=== PATIENT | male | born 1950 | race Caucasian/White ===

== ENCOUNTER 2023-08-30 08:50 | Outpatient (OUT) | payer OTHER, SELFPAY ==
[2023-08-30 09:31] LABS: Estimated Average Glucose 126 mg/dL
[2023-08-30 09:41] LABS: Creatinine Urine Random 63.67 mg/dL (20.00-300.00); Microalbum Creatinine Ratio Ur 20.4 mg/g (0.0-29.9); Microalbumin Urine Random <1.3 mg/dL (<=30.0)
[2023-08-30 12:01] LABS: Alanine Aminotransferase 31 U/L (16-63); Albumin Globulin Ratio 1.2; Albumin Level 3.8 g/dL (3.4-5.0); Alkaline Phosphatase 60 U/L (46-116); Anion Gap 14.5; Aspartate Amino Transferase 19 U/L (15-37); BUN Creatinine Ratio 15.5; Bilirubin Total 0.5 mg/dL (0.2-1.0); Calcium 8.8 mg/dL (8.5-10.1); Carbon Dioxide 26.7 mmol/L (21.0-32.0); Chloride 102 mmol/L (98-107); Estimated GFR (African America >60 (>=60); Estimated GFR (Non-African Ame >60 (>=60); Globulin 3.3 g/dL; Glucose 115 mg/dL (74-106); Potassium 4.2 mmol/L (3.5-5.1); Sodium 139 mmol/L (136-145); Total Protein 7.1 g/dL (6.4-8.2)
== END 2023-08-30 08:51 | disposition home or self-care (01) ==
LOC: LAB 08:52
PROVIDERS: PCP Family Medicine; Visit Provider Family Medicine
DX: M25.532 Pain in left wrist (principal); E11.65 Type 2 diabetes mellitus with hyperglycemia; I10 Essential (primary) hypertension
CPT/HCPCS: 36415; 80053; 82043; 82570; 83036

== ENCOUNTER 2023-12-26 09:04 | Outpatient (OUT) | payer OTHER, SELFPAY ==
--- OUTSIDE RECORDS SUMMARY | 2023-12-26 09:28 | XMS_ITS | CCD ---
Author Organization [facility] Care Team Providers Care Manager New Product Name Role Phone DR IOANA CHRISTINA Attending Unavailable JUSTA GONZALEZ Consulting Unavailable SANFORD, DR TRIPLETT Admitting Unavailable DANILO, DR LUIS ALBERTO Espinoza Primary Care Unavailable ADELAIDA, CHILO Consulting Unavailable DANILO, DR LUIS ALBERTO Espinoza Attending Unavailable TRAVIS, DR CHILO Almanzar Consulting Unavailable DANILO, DR LUIS ALBERTO Espinoza Primary Care Unavailable DANILO, DR LUIS ALBERTO Espinoza Admitting Unavailable DANILO, DR LUIS ALBERTO Espinoza Consulting Unavailable DANILO, DR LUIS ALBERTO Espinoza Attending Unavailable DANILO, DR LUIS ALBERTO Espinoza Consulting Unavailable DANILO, DR LUIS ALBERTO Espinoza Admitting Unavailable Tim Adams Jr. Primary Care Provider Unava ilable Lam Andrew (Hist) Unavailable [phone] Luis Alberto Carrasco Unavailable Unavailable Unavailable Lam Andrew DO Unavailable [phone] MD Luis Alberto Carrasco Primary Care Provider [phone] MD Luis Alberto Carrasco Attending Provider [phone] DO Papa Washburn Attending Provider MD Luis Alberto Carrasco Primary Care Provider MD Luis Alberto Carrasco Attending Provider [phone] Lam Andrew Unavailable Ras Mejias Unavailable [phone] Bryan Jeffries [facility] Primary Care Provider Unava ilable Lam Andrew DO Unavailable [phone] Luis Alberto Carrasco Unavailable Amber MACK, Dr. Joshua Alcantar Referring Unavailable Amber MACK, Dr. Joshua Alcantar Attending Unavailable Dr. Luis Alberto Carrasco Primary Care Unav Luis Alberto Roque MD Primary Care Provider MD Luis Alberto Carrasco Primary Care Provider [phone] MD Luis Alberto Carrasco Attending Provider [phone] Luis Alberto Carrasco Attending Unavailable Luis Alberto Carrasco Admitting Unavailable Luis Alberto Carrasco Primary Care Unavailable Luis Alberto Carrasco MD Primary Care Provider JOSHUA CLARK Attending Unavailable LUIS ALBERTO CARRASCO Primary Care Unavailable PETER POE Attending Unavailable JR. CARLOS, SIMONE Torre Attending Unavaila PETER Ruiz Attending Unavailable JR. CARLOS, SIMONE Torre Attending Unavaila PETER Ruiz Attending Unavailable MARYBETH MASON Attending Unavailable MARYBETH MASON Attending Unavailable JR. CARLOS, SIMONE Torre Attending Unavaila benny SANTOYO JR., SIMONE Torre Referring Unavaila benny SANTOYO JR., SIMONE Torre Attending Unavaila benny Allergies Allergy Classification Reported Allergen(s) Allergy Type Date of Onset Reaction(s) Facility (16 sources) fentaNYL; Translations: [Duragesic-100 PT72] Drug Allergy 9 Rash, Itching [facility] (7 sources) Hmg-Coa Reductase Inhibitors (Statins); Translations: [Statins] [facility] drug (finding[facility]: (20 sources) Morphine; Translations: [morphine] Drug Allergy 5 Itching [facility] (10 sources) ranolazine; Translations: [Ranexa] Drug Allergy [address] [facility] 250 DO Work Phone: (7 sources) fentaNYL; Translations: [FENTANYL] Drug Allergy 0 Itching, Itching, Comment:Freetex t Needs Updated. [facility] (13 sources) Duragesic-75 Drug allergy 4 Unknown, [facility] (6 sources) atorvastatin Drug Allergy 6 Unknown, [facility] (6 sources) venlafaxine Drug Allergy 4 Comment:tired, no appetite [facility] (2 sources) Duragesic-100 Drug allergy 5 Comment:Freetex t Needs Updated. [employer] Other (5 sources) ranolazine; Translations: [RANOLAZINE] Drug Allergy 3 [facility] (2 sources) HMG-CoA reductase inhibitor; Translations: [[id number] REDUCTASE INHIBITORS] Drug Allergy 3 [facility] Work Phone: (2 sources) vilanterol Drug Allergy 4 [facility] Medications Current Medications Medication Drug Class(es) Dates Sig (Normalized) Sig (Original) [id number] 200 actuat albuterol 0.09 mg/actuat metered dose inhaler (20 sources) beta2-Adrenergic Agonist Start: 04-16-2018 take 2 puff(s) by inhalation every six hours as needed Proventil HFA 108 (90 Base) MCG/ACT 2 puffs as needed Inhalation every 6 hrs for 90 days Apr, Active Start: 04-16-2018 Start: 11-14-2017 take 2.5 mg by inhal ation every four hours Albuterol Sulfate Active 2.5 MG INHALATION Q4H November 14, 2017 12:00am Start: 11-14-2017 take 1 puff(s) by in halation every four to six hours Albuterol Sulfate (Proair Hfa) 90 mcg/actuation Hfa Aerosol Inhaler Active 2 PUFF INHALATION EVERY 4-6 HOURS November 14, 2017 12:00am take 2.5 mg by inhal ation every four hours as needed albuterol 2.5 mg /3 mL (0.083 %) nebulizer solution Take 3 mL (2.5 mg) by nebulization every 4 hours if needed. Active Albuterol Sulfat e (2.5 MG/3ML) 0.083% 1 unit dose Inhalation four times a day DX J45.20 asthma, mild intermittent for 30 days Active Albuterol Sulfat e (2.5 MG/3ML) 0.083% 1 unit dose Inhalation four times a day DX J45.20 asthma, mild intermittent for 30 days Active Albuterol Sulfat e (2.5 MG/3ML) 0.083% Inhalation Nebulization Solution USE 1 UNIT DOSE EVERY 4-6 HOURS NEEDED FOR WHEEZING . Quantity: 0 Refills: 0 Ordered: 01-Sep-2021 DO Active Comment on above: Albuterol Sulfate Ac tive 2.5 MG Inhalation Q4H November 14, 2017 10:03am aspirin 81 mg delayed release oral tablet (20 sources) Platelet Aggregation Inhibitor, Nonsteroidal Anti-inflammatory Drug Start: 10-28-2019 take 81 mg by mouth once daily Aspirin Active 81 MG PO Daily October 28, 2019 12:00am Start: 10-27-2017 End: 10-28-2019 take 325 mg by mouth once daily Aspirin Discontinued 325 MG PO Daily October 27, 2017 12:00am October 28, 2019 10:15am Comment on above: Take 81 mg by mouth. atorvastatin 40 mg oral tablet (20 sources) HMG-CoA Reductase Inhibitor Start: 10-28-19 End: 09-24-19 take 40 mg by mouth once daily in the evening Atorvastatin Active 40 MG PO Every evening October 28, 2019 12:00am Comment on above: Atorvastatin Active 40 MG Oral Every evening October 28, 2019 9:10am azithromycin 250 mg oral tablet (11 sources) Macrolide Antimicrobial Start: 08-23-19 Azithromycin 250 MG as directed Orally 2 tabs po today, then 1 tab daily x 4 more days for 5 Aug, Active Start: 10-27-2017 End: 11-14-2017 take 1 tablet by mouth once daily Azithromycin (Zithromax) 250 mg tablet Discontinued 250 MG PO daily 4 October 27, 2017 12:00am November 14, 2017 11:21am First dose given in ED cefdinir 300 mg oral capsule (1 source) Cephalosporin Antibacterial Start: 06-05-2023 Cefdinir 300 MG as directed Orally bid for 7 days May, Active clopidogrel 75 mg oral tablet (20 sources) [id number] Platelet Inhibitor Start: 10-27-2017 End: 09-23-2024 take 75 mg by mouth once daily Clopidogrel Active 75 MG PO Daily October 28, 2019 12:00am Comment on above: Take 75 mg by mouth. diazePAM 2 mg oral tablet (20 sources) Benzodiazepine Start: 10-28-2019 take 2 mg by mouth twice daily Diazepam Active 2 MG PO Twice daily 10 October 28, 2019 12:00am Start: 10-27-2017 End: 10-25-2019 Diazepam Discontinued 5 MG P O 2-3 TIMES PER DAY October 27, 2017 12:00am October 25, 2019 12:28pm diazePAM (Valium ) 5 MG tablet 2 mg 1 (one) time each day at the same time. 0 Active take 1 tablet by janey th every twelve hours diazePAM 5 MG 1 tablet as needed Orally Twice a day Active take 1 tablet by janey th every six hours as needed diazePAM (VALIUM) 5 mg tablet Take 5 mg by mouth every 6 hours as needed. 0 Active Comment on above: Take 5 mg by mouth e very 6 hours as needed. docusate sodium 100 mg oral capsule (20 sources) Start: 06-04-2018 take 1 capsule by mouth once daily Docusate Sodium (Stool Softener) 100 mg Capsule Active 100 MG PO Daily June 04, 2018 1:00am Start: 11-14-2017 End: 05-29-2018 take 1 capsule by mouth twice daily Docusate Sodium (Colace) 100 mg Capsule Discontinued 100 MG PO Twice daily November 14, 2017 12:00am May 29, 2018 10:34am Start: 11-14-2017 End: 11-14-2017 Docusate Sodium (Colace) 100 mg Capsule Discontinued November 14, 2017 12:00am November 14, 2017 11:40am take 1 tablet by janey th once daily as needed Stool Softener 100 MG Oral Tablet TAKE 1 TABLET Daily prn Quantity: 0 Refills: 0 Ordered: 18-Sep-2022 DO Active donepezil hydrochloride 5 mg oral tablet (9 sources) Start: 08-30-2021 End: 09-24-2023 take 1 tablet by mouth once daily at bedtime donepezil (Aricept) 5 mg tablet Take 1 tablet (5 mg) by mouth once daily at bedtime. 08/30/2021 09/24/2023 Discontinued (Therapy completed) hydroCHLOROthiazide 12.5 mg / lisinopril 10 mg oral tablet (20 sources) Thiazide Diuretic, Angiotensin Converting Enzyme Inhibitor Start: 12-15-2020 take 10-12.5 mg by mouth once lisinopril-hydroC HLOROthiazide (PRINZIDE,ZESTORE TIC) 10-12.5 mg per tablet Take 1 tablet by mouth once daily. 0 12/15/2020 Active Start: 10-27-2017 End: 09-23-2024 take 1 tablet by mouth once daily Lisinopril-Hydrochlorothiazide Active 1 TAB PO Daily October 27, 2017 12:00am lisinopril-hydro CHLOROthiazide 10-12.5 MG tablet lisinopril 10 mg-hydrochlorothiazide 12.5 mg tablet 0 Active Comment on above: Take 1 tablet by janey th once daily. 24 hr isosorbide mononitrate 120 mg extended release oral tablet (20 sources) Nitrate Vasodilator Start: 1 End: 5 take 1 tablet by mouth once daily isosorbide mononitrate ER (Imdur) 120 mg 24 hr tablet Indications: ASCVD (arteriosclerotic cardiovascular disease) , Essential hypertension Take 1 tablet (120 mg) by mouth once daily. 90 tablet 3 09/24/2023 09/23/2024 Active Start: 10-27-2017 take 60 mg by mouth once daily Isosorbide Mononitrate Active 60 MG PO Daily October 27, 2017 12:00am Comment on above: Take 120 mg by mouth once daily. meclizine hydrochloride 12.5 mg oral tablet (4 sources) Antiemetic Start: 4 Meclizine Active 12.5 MG PO 2-3 TIMES PER DAY July 15, 2023 12:00am 24 hr metoprolol succinate 25 mg extended release oral tablet (20 sources) beta-Adrenergic Miguel A Start: 3 take 1 tablet by mouth every twenty-four hours in the morning metoprolol succinate XL (Toprol-XL) 25 MG 24 hr tablet Take 25 mg by mouth in the morning. 0 09/18/2022 Active Start: 10-28-2019 take 1 tablet by janey th every twenty-four hours metoprolol succinate ER (TOPROL XL) 25 mg 24 hr tablet Metoprolol Succinate Active 25 MG Oral Daily October 28, 2019 9:41am 0 10/28/2019 Active Start: 10-28-2019 End: 09-23-2024 take 1 tablet by mouth once daily Metoprolol Succinate (Toprol Xl) 25 mg tablet extended release 24 hr Active 25 MG PO Daily October 28, 2019 12:00am Comment on above: Metoprolol Succinate Active 25 MG Oral Daily October 28, 2019 9:41am omeprazole 20 mg delayed release oral capsule (20 sources) Proton Pump Inhibitor Start: 11-15-19 End: 07-11-19 take 20 mg by mouth once daily Omeprazole Active 20 MG PO Daily July 11, 2023 2:53pm Comment on above: Omeprazole Active 20 MG Oral Daily November 14, 2017 10:03am 60 actuat tiotropium 0.0025 mg/actuat inhalation spray (20 sources) Anticholinergic Start: 10-01-19 take 1 puff(s) by inhalation once daily Tiotropium [place] (Spiriva Respimat) 2.5 mcg/actuation mist Active 2 PUFF INHALATION Daily October 01, 2023 12:00am Start: 09-07-2022 take 2 puff(s) by in halation once daily Spiriva Respimat 2.5 MCG/ACT inhaler USE 2 PUFFS DAILY 0 09/07/2022 Active Start: 03-21-2021 take 2 puff(s) by mo ut once daily Spiriva Respimat 2.5 MCG/ACT Inhalation Aerosol Solution INHALE 2 PUFFS BY MOUTH DAILY Quantity: 4 Refills: 0 Ordered: 21-Mar-2021 DO Start : 21-Mar-2021 Active Start: 03-21-2021 take 2 puff(s) by in halation once daily SPIRIVA RESPIMAT 2.5 mcg/actuation inhaler Inhale 2 Puffs as instructed once daily. 0 03/21/2021 Active Start: 10-25-2019 End: 09-23-2023 take 2.5 ug by inhalation once daily Tiotropium [place] (Spiriva Respimat) 2.5 mcg/actuation mist Discontinued 2.5 MCG INHALATION Daily October 25, 2019 12:00am September 23, 2023 9:31am Start: 10-25-2019 End: 10-25-2019 Tiotropium [place] (Spiriva Respimat) 2.5 mcg/actuation mist Discontinued INHALATION October 25, 2019 12:00am October 25, 2019 7:34am Start: 02-14-2018 take 2 puff(s) by in halation once daily Spiriva Respimat 2.5 MCG/ACT 2 puffs Inhalation Once a day for 30 days Feb, Active Start: 02-14-2018 Start: 10-27-2017 End: 05-29-2018 take 1 capsule by inhalation once daily Tiotropium [place] (Spiriva With Handihaler) 18 mcg Capsule, W/Inhalation Device Discontinued 1 CAP INHALATION Daily October 27, 2017 12:00am May 29, 2018 10:32am take 2 puff(s) by in halation once daily Spiriva Respimat 2.5 mcg/actuation inhaler 2 puffs once daily. Active Comment on above: Inhale 2 Puffs as in structed once daily. traMADol hydrochloride 50 mg oral tablet (14 sources) Opioid Agonist Start: 02-21-20 21 take 1 tablet by mouth every six hours as needed for pain traMADol HCl 50 MG 1 tablet as needed for pain Orally every 6 hrs for 7 days Feb, Active Comment on above: Take 50 mg by mouth every 6 hours as needed for pain. 24 hr venlafaxine 75 mg extended release oral capsule (17 sources) Serotonin and Norepinephrine Reuptake Inhibitor Start: 11-16-19 22 take 1 capsule by mouth every twenty-four hours in the morning venlafaxine XR (Effexor XR) 75 MG 24 hr capsule Take 150 mg by mouth in the morning. 0 11/15/2021 Active Start: 03-06-2021 End: 09-24-2023 take 1 capsule by mouth once daily venlafaxine XR (Effexor-XR) 150 mg 24 hr capsule Take 1 capsule (150 mg) by mouth once daily. 03/06/2021 09/24/2023 Discontinued (Therapy completed) Start: 03-06-2021 take 1 capsule by [facility] once daily venlafaxine ER (EFFEXOR XR) 37.5 mg 24 hr capsule Take 1 capsule by mouth once daily. Take 1 capsule daily for 1 week then increase to 2 capsules daily for 1 week then increase to 150 mg capsules and continue on that dose 21 capsule 0 03/06/2021 Active Comment on above: Take 1 capsule by mo [facility] once daily. Take 1 capsule daily for 1 week then increase to 2 capsules daily for 1 week then increase to 150 mg capsules and continue on that dose Take 1 capsule by mo [facility] once daily. Completed/Discontinued Medications Medication Drug Class(es) Dates Sig (Normalized) Sig (Original) atenolol 25 mg oral tablet (10 sources) beta-Adrenergic Miguel A Start: 10-27-2017 End: 06-04-2018 take 25 mg by mouth once daily Atenolol Discontinued 25 MG PO Daily October 27, 2017 12:00am June 04, 2018 11:46am Comment on above: Take 25 mg by mouth. benoxinate hydrochloride 4 mg/ml / fluorescein sodium 2.5 mg/ml ophthalmic solution (2 sources) Diagnostic Dye Start: 12-27-2021 End: 12-27-2021 fluorescein-benoxi jerry 0.25-0.4 % 1 Drop (FLURESS) Start: 11-13-2021 End: 11-13-2021 fluorescein-benoxinate 0.25- 0.4 % 1 Drop (FLURESS) benzonatate 200 mg oral capsule (10 sources) Non-narcotic Antitussive Start: 04-09-2020 End: 08-26-2023 take 200 mg by mouth three times daily Benzonatate Discontinued 200 MG PO Three times daily April 09, 2020 1:00am August 26, 2023 10:03am Comment on above: Benzonatate Active 2 00 MG Oral Three times daily April 09, 2020 3:41pm bimatoprost 0.1 mg/ml ophthalmic solution (20 sources) Prostaglandin Analog Start: 11-14-2017 End: 11-13-2021 take 1 drop(s) into the eye(s) once daily in the evening bimatoprost (LUMIGAN) 0.01 % drop ophthalmic drops Bimatoprost Active 1 DROPS Ophthalmic Every evening November 14, 2017 10:03am 0 11/14/2017 11/13/2021 Discontinued (Changing Therapy/Dosage Form) Start: 11-14-2017 take 0.01 drop(s) in to the eye(s) once daily in the evening Bimatoprost (Lumigan) 0.01 % Drops Active 1 DROPS OPHTHALMIC Every evening November 14, 2017 12:00am take 1 drop(s) into the eye(s) once daily at bedtime bimatoprost (Lumigan) 0.03 % ophthalmic solution Administer 1 drop into affected eye(s) once daily at bedtime. Active bimatoprost (Lum igan) 0.03 % ophthalmic solution 1 (one) time each day at the same time. 0 Active take 1 drop(s) into the eye(s) once daily in the evening Lumigan 0.01 % 1 drop into affected eye in the evening Ophthalmic Once a day Active Comment on above: Bimatoprost Active 1 DROPS Ophthalmic Every evening November 14, 2017 10:03am Fluticasone Propion-Salmeterol (12 sources) Corticosteroid, beta2-Adrenergic Agonist Start: 11-14-2017 End: 05-29-2018 Fluticasone Propion-Salmeterol (Advair Diskus) 250-50 mcg/dose Blister With Device Discontinued 1 INH INHALATION Q12H November 14, 2017 11:03am May 29, 2018 10:29am Start: 11-14-2017 End: 05-29-2018 Fluticasone Propion-Salmeter ol (Advair Diskus) 250-50 mcg/dose Blister With Device Discontinued 1 INH INHALATION Q12H November 14, 2017 12:00am May 29, 2018 10:29am Start: 10-27-2017 End: 05-29-2018 Fluticasone Propion-Salmeter ol (Advair Diskus) 250-50 mcg/dose Blister With Device Discontinued 1 INH INHALATION Daily October 27, 2017 10:26pm May 29, 2018 10:28am Start: 10-27-2017 End: 05-29-2018 Fluticasone Propion-Salmeter ol (Advair Diskus) 250-50 mcg/dose Blister With Device Discontinued 1 INH INHALATION Daily October 27, 2017 12:00am May 29, 2018 10:28am Fluticasone Furoate-Vilanterol (4 sources) Corticosteroid, beta2-Adrenergic Agonist Start: 09-23-2023 End: 10-01-2023 take 1 puff(s) by inhalation once daily Fluticasone Furoate-Vilanterol (Breo Ellipta) 200-25 mcg/dose blister with device Discontinued 1 INH INHALATION Daily September 23, 2023 12:00am October 01, 2023 9:16am [employer] puff Inhalation Once a day; Note: Source Status: Taking; Refills: 3; Provider: Magalie Espinoza Start: 02-19-2023 take 1 puff(s) by in halation once daily Breo Ellipta 200-25 MCG/ACT 1 puff Inhalation Once a day for 90 days Feb, Active furosemide 40 mg oral tablet (12 sources) Loop Diuretic Start: 10-27-2017 End: 10-25-2019 take 1 tablet by mouth once daily Furosemide (Lasix) 40 mg tablet Discontinued 40 MG PO Daily June 04, 2018 1:00am October 25, 2019 8:31am gabapentin 300 mg oral capsule (6 sources) Anti-epileptic Agent Start: 10-27-2017 End: 10-25-2019 take 1 capsule by mouth three times daily Gabapentin (Neurontin) 300 mg Capsule Discontinued 300 MG PO Three times daily October 27, 2017 12:00am October 25, 2019 8:31am latanoprost 0.05 mg/ml ophthalmic solution (2 sources) Prostaglandin Analog Start: 11-13-2021 take 1 drop(s) into the eye(s) once daily at bedtime latanoprost (XALATAN) 0.005 % ophthalmic solution Use 1 Drop in the right eye daily at bedtime. 2.5 mL 11 11/13/2021 Active Comment on above: Use 1 Drop in the ri ght eye daily at bedtime. nitroglycerin 0.4 mg sublingual tablet (20 sources) Nitrate Vasodilator Start: 10-27-2017 End: 11-14-2017 Nitroglycerin Discontinued November 14, 2017 12:00am November 14, 2017 11:39am nitroglycerin (N itrostat) 0.4 MG SL tablet 1 tablet under tongue every 5 minutes for chest pain orally 0 Active Comment on above: Dissolve 0.4 mg unde r the tongue at bedtime as needed. Tiotropium-Olodaterol (6 sources) Anticholinergic, beta2-Adrenergic Agonist Start: 05-29-2018 End: 10-25-2019 Tiotropium-Olodaterol (Stiolto Respimat) 2.5-2.5 mcg/actuation Mist Discontinued 2 PUFF INHALATION Daily May 29, 2018 10:31am October 25, 2019 7:34am Start: 05-29-2018 End: 10-25-2019 Tiotropium-Olodaterol (Stiol to Respimat) 2.5-2.5 mcg/actuation Mist Discontinued 2 PUFF INHALATION Daily May 29, 2018 1:00am October 25, 2019 7:34am ondansetron 4 mg disintegrating oral tablet (4 sources) Serotonin-3 Receptor Antagonist Start: 07-15-2023 End: 08-26-2023 take 4 mg by mouth every eight hours Ondansetron Discontinued 4 MG PO Q8H July 15, 2023 12:00am August 26, 2023 10:04am oxyCODONE hydrochloride 15 mg oral tablet (12 sources) Opioid Agonist Start: 05-29-2018 End: 10-25-2019 take 15 mg by mouth three times daily Oxycodone Discontinued 15 MG PO Three times daily May 29, 2018 1:00am October 25, 2019 8:32am Start: 11-14-2017 End: 05-29-2018 take 10 mg by mouth every four to six hours Oxycodone Discontinued 10 MG PO EVERY 4-6 HOURS November 14, 2017 12:00am May 29, 2018 10:34am potassium chloride 10 meq extended release oral capsule (6 sources) Start: 10-27-2017 End: 10-25-2019 take 10 mEq by mouth once daily Potassium Chloride Discontinued 10 MEQ PO Daily October 27, 2017 12:00am October 25, 2019 8:32am predniSONE 50 mg oral tablet (18 sources) Start: 04-09-2020 End: 10-01-2023 take 50 mg by mouth once daily Prednisone Discontinued 50 MG PO Daily 5 April 09, 2020 1:00am October 01, 2023 9:16am Start: 11-14-2017 End: 05-29-2018 take 10 mg by mouth once daily Prednisone Discontinued 10 MG PO Daily November 14, 2017 12:00am May 29, 2018 10:31am Start: 10-27-2017 End: 11-14-2017 take 40 mg by mouth once daily in the morning Prednisone Discontinued 40 MG PO Every morning 10 October 27, 2017 12:00am November 14, 2017 11:11am administer with food or milk 12 hr ranolazine 500 mg extended release oral tablet (6 sources) Anti-anginal Start: 06-04-2018 End: 10-25-2019 take 1 tablet by mouth twice daily Ranolazine (Ranexa) 500 mg tablet extended release 12 hr Discontinued 500 MG PO Twice daily 60 June 04, 2018 1:00am October 25, 2019 8:33am simvastatin 10 mg oral tablet (6 sources) HMG-CoA Reductase Inhibitor Start: 11-14-2017 End: 10-25-2019 take 10 mg by mouth once daily in the evening Simvastatin Discontinued 10 MG PO Every evening November 14, 2017 12:00am October 25, 2019 8:31am spironolactone 25 mg oral tablet (20 sources) Aldosterone Antagonist Start: 10-25-2019 End: 09-23-2024 take 25 mg by mouth once daily Spironolactone Discontinued 25 MG PO Daily October 25, 2019 12:00am October 01, 2023 9:16am Comment on above: Spironolactone Activ e 25 MG Oral Daily October 25, 2019 6:35am terazosin 5 mg oral capsule (6 sources) alpha-Adrenergic Miguel A Start: 11-14-2017 End: 10-25-2019 take 5 mg by mouth once daily Terazosin Discontinued 5 MG PO Daily November 14, 2017 12:00am October 25, 2019 8:33am Problems Active Problems Problem Classification Problem Date Documented Date Episodic/Chronic Acute myocardial infarction (6 sources) Subsequent non-ST segment elevation myocardial infarction; Translations: [Subendocardial infarction, episode of care unspecified] Onset: 04-12-2023 04-12-2023 Chronic Asthma (11 sources) Asthma; Translations: [Unspecified asthma, uncomplicated] 10-25-2019 Chronic Asthma (6 sources) Asthma 04-09-2020 Cataract (1 source) After-cataract of bilateral eyes; Translations: [Other secondary cataract, bilateral] Chronic Chronic obstructive pulmonary disease and bronchiectasis (6 sources) Chronic obstructive lung disease; Translations: [Chronic airway obstruction, not elsewhere classified] Onset: 04-12-2023 04-12-2023 Chronic Chronic obstructive pulmonary disease and bronchiectasis (1 source) Bronchitis, not specified as acute or chronic Episodic Conditions associated with dizziness or vertigo (7 sources) Benign paroxysmal positional vertigo; Translations: [Benign paroxysmal vertigo, unspecified ear] 07-22-2023 Episodic Coronary atherosclerosis and other heart disease (20 sources) Arteriosclerotic vascular disease; Translations: [Cardiovascular disease, unspecified] Onset: 04-12-2023 10-25-2019 Chronic Coronary atherosclerosis and other heart disease (4 sources) Coronary angioplasty status; Translations: [Presence of aortocoronary bypass graft] Onset: 04-12-2023 Episodic Diabetes mellitus with complications (8 sources) Hyperglycemia due to type 2 diabetes mellitus; Translations: [Type 2 diabetes mellitus with hyperglycemia] 08-26-2023 Chronic Disorders of lipid metabolism (16 sources) Hyperlipidemia; Translations: [Other and unspecified hyperlipidemia] Onset: 04-12-2023 10-25-2019 Chronic Disorders usually diagnosed in infancy, childhood, or adolescence (9 sources) Tic disorder; Translations: [Tic disorder, unspecified] Onset: 02-20-2021 Resolved: 02-20-2021 Chronic Essential hypertension (20 sources) Hypertensive disorder; Translations: [Unspecified essential hypertension] Onset: 04-12-2023 10-25-2019 Chronic Glaucoma (3 sources) Suspected bilateral glaucoma; Translations: [Preglaucoma, unspecified, bilateral] Chronic Immunizations and screening for infectious disease (6 sources) Contact with and (suspected) exposure to other viral communicable diseases; Translations: [Patient encounter status] Onset: 04-05-2020 Episodic Other and ill-defined heart disease (6 sources) Diastolic dysfunction; Translations: [Heart disease, unspecified] Onset: 04-12-2023 04-12-2023 Chronic Other circulatory disease (1 source) Other specified symptoms and signs involving the circulatory and respiratory systems; Translations: [OTH SPEC SX SIGNS INVLV CIRC RS] Onset: 11-24-2020 Episodic Other circulatory disease (5 sources) H/O: angina pectoris; Translations: [Personal history of other diseases of circulatory system] Episodic Other ear and sense organ disorders (1 source) Impacted cerumen, right ear Episodic Other hematologic conditions (6 sources) Raised cardiac enzyme or marker; Translations: [Other specified abnormalities of plasma proteins] 10-25-2019 Episodic Other injuries and conditions due to external causes (3 sources) Unspecified foreign body in pharynx causing other injury, initial encounter; Translations: [UNS FB PHAR CAUS OTH INJ INIT ENC] Onset: 11-22-2020 Episodic Other lower respiratory disease (11 sources) Dyspnea; Translations: [Other respiratory abnormalities] 10-27-2019 Episodic Other lower respiratory disease (6 sources) Viral respiratory infection; Translations: [Other specified respiratory disorders] 04-09-2020 Episodic Other lower respiratory disease (10 sources) Dyspnea on exertion; Translations: [Other forms of dyspnea] Episodic Other lower respiratory disease (2 sources) Other forms of dyspnea Onset: 03-21-2021 Resolved: 03-21-2021 Episodic Other nervous system disorders (3 sources) Ulnar nerve entrapment at elbow; Translations: [Lesion of ulnar nerve, unspecified upper limb] Onset: 01-20-2016 10-08-2022 Chronic Other nervous system disorders (3 sources) Carpal tunnel syndrome of left wrist; Translations: [Carpal tunnel syndrome, left upper limb] Onset: 01-20-2016 10-08-2022 Chronic Other nervous system disorders (8 sources) Paresthesia; Translations: [Paresthesia of skin] Episodic Other nervous system disorders (1 source) Postoperative pain ; Translations: [Other acute postprocedural pain] 06-11-2023 Episodic Other non-traumatic joint disorders (1 source) Pain in left knee Episodic Other non-traumatic joint disorders (4 sources) Pain in wrist; Translations: [Pain in left wrist] 08-26-2023 Episodic Other non-traumatic joint disorders (3 sources) Pain in left wrist; Translations: [Pain in joint, forearm] 08-26-2023 Episodic Other nutritional; endocrine; and metabolic disorders (5 sources) Obesity; Translations: [Obesity, unspecified] Chronic Other nutritional; endocrine; and metabolic disorders (8 sources) Body mass index 30+ - obesity; Translations: [Body mass index (BMI) 38.0-38.9, adult] Onset: 09-24-2023 10-25-2019 Chronic Other nutritional; endocrine; and metabolic disorders (2 sources) Body mass index (BMI) 39.0-39.9, adult; Translations: [Body mass index (BMI) 39.0-39.9, adult] Onset: 09-24-2023 Chronic Other upper respiratory infections (2 sources) Acute pharyngitis, unspecified; Translations: [Acute maxillary sinusitis, unspecified] Onset: 11-24-2020 Episodic Residual codes; unclassified (1 source) Localized edema Episodic Screening and history of mental health and substance abuse codes (10 sources) Personal history of nicotine dependence; Translations: [Ex-smoker] Onset: 11-24-2020 09-24-2023 Episodic Comment on above: quit 2008; Past or Other Problems Problem Classification Problem Date Documented Da te Episodic/Chronic Malaise and fatigue (6 sources) Fatigue; Translations: [Other malaise and fatigue] Onset: 04-12-2023 04-12-2023 Episodic Other connective tissue disease (1 source) Cramp and spasm; Translations: [Spasticity R25.2] Onset: 02-20-2021 Resolved: 02-20-2021 Episodic Other connective tissue disease (3 sources) Pain in right arm; Translations: [Pain in right arm] Onset: 12-28-2022 12-28-2022 Episodic Other nervous system disorders (1 source) Paresthesia of skin; Translations: [Paresthesia of upper and lower extremities of both sides R20.2] Onset: 02-20-2021 Resolved: 02-20-2021 Episodic Other nervous system disorders (1 source) Abnormal reflex; Translations: [Hyporeflexia R29.2] Onset: 02-20-2021 Resolved: 02-20-2021 Episodic Other non-traumatic joint disorders (5 sources) Pain in left hip; Translations: [PAIN IN LEFT HIP] Onset: 01-20-2021 Resolved: 02-20-2021 Episodic Spondylosis; intervertebral disc disorders; other back problems (3 sources) Low back pain; Translations: [Low back pain] Onset: 10-11-2016 10-08-2022 Episodic Unclassified (1 source) Onset: 09-24-2023 09-24-2023 Results Test Name Value Interpretation Reference Range Facility MR WRIST LEFT WO IV CONTRAST on 09-25-2023 MR WRIST LEFT WO IV CONTRAST HISTORY: Left wrist pain for a couple months. Some swelling. History of falls. TECHNIQUE: Routine MRI of the wrist, left side; COMPARISON: None RESULT: BONE MARROW: No evidence for recent fracture. No evidence for avascular necrosis. Tiny amount of edema signal involving the lunate and scaphoid near the scapholunate ligament attachments. LIGAMENTS: Fairly diffusely increased signal involving the scapholunate ligament with tearing of the interosseous component and probable sprain or partial tear involving the dorsal component, without complete tear, and probable tearing of the volar component. Lunotriquetral ligament appears grossly intact. TRIANGULAR FIBROCARTILAGE: Probable central perforation. CARTILAGE: Mild scattered degenerative changes throughout the wrist with small osteophytes, especially of the thumb CMC joint. TENDONS: The flexor and extensor tendons are intact. NERVES: The visualized portions of the median and ulnar nerves appear to be within normal limits. JOINT FLUID AND SYNOVIUM: Small radiocarpal joint effusion. Small joint effusion of the distal radioulnar joint. OTHER: Subcutaneous edema. IMPRESSION: Tearing involving the scapholunate ligament as discussed. No evidence for recent fracture. Probable central perforation of the TFCC. ELECTRONICALLY SIGNED BY: Blair Mtz MD Normal Not Available Estimated glomerular filtrat ion rate (GFR) non- Americanon 08-30-2023 GFR/1.73 sq M.predicted among non-blacks MDRD (S/P/Bld) [Vol rate/Area] mL/min/{1.73_m2} >=60 [facility] Globulin Calc (S) [Mass/Vol] on 08-30-2023 Globulin (S) [Mass/Vol] 3.3 g/dL [facility] Glucose mean value [Mass/vol ume] in Blood Estimated from glycated hemoglobinon 08-30-2023 Average glucose Estimated from glycated hemoglobin (Bld) [Mass/Vol] 126 mg/dL [facility] Laboratory - Chemistry and C hemistry - challengeon 08-30-2023 Albumin [Mass/Vol] 3.8 g/dL 3.4-5.0 [facility] ALP [Catalytic activity/Vol] 60 U/L 46-116 [facility] ALT [Catalytic activity/Vol] 31 U/L 16-63 [facility] AST [Catalytic activity/Vol] 19 U/L 15-37 [facility] Bilirubin [Mass/Vol] 0.5 mg/dL 0.2-1.0 [facility] Calcium [Mass/Vol] 8.8 mg/dL 8.5-10.1 [facility] Chloride [Moles/Vol] 102 mmol/L 98-107 [facility] CO2 [Moles/Vol] 26.7 mmol/L 21.0-32.0 [facility] Creatinine [Mass/Vol] 1.16 mg/dL 0.70-1.30 [facility] GFR/1.73 sq M.predicted MDRD (S/P/Bld) [Vol rate/Area] mL/min/{1.73_m2} >=60 [facility] Glucose [Mass/Vol] 115 mg/dL 74-106 [facility] Potassium [Moles/Vol] 4.2 mmol/L 3.5-5.1 [facility] Protein [Mass/Vol] 7.1 g/dL 6.4-8.2 [facility] Sodium [Moles/Vol] 139 mmol/L 136-145 [facility] Urea nitrogen [Mass/Vol] 18.0 mg/dL 7.0-18.0 [facility] Urea nitrogen/Creatinine [Mass ratio] 15.5 mg/mg [facility] Laboratory - Hematology and Cell countson 08-30-2023 HbA1c (Bld) [Mass fraction] 6.0 % 4.5-6.2 [facility] Comment on above: ADA RECOMMENDED LIMI T 4.0 - 6.0ADA THERAPEUTIC TARGET < 7.0ACTION SUGGESTED> 7.0 Microalbumin [Mass/volume] i n Urineon 08-30-2023 Albumin DL <= 20 mg/L (U) [Mass/Vol] mg/dL <=30.0 [facility] No Panel Informationon 08-29 Urine Random Creatinine 63.67 mg/dL 20.00-300.00 [facility] Serum or plasma albumin/glob ulin mass ratioon 08-30-2023 Albumin/Globulin [Mass ratio] 1.2 {ratio} [facility] Serum or plasma anion gap de terminationon 08-30-2023 Anion gap [Moles/Vol] 14.5 mmol/L [facility] Urine microalbumin/creatinin e mass ratioon 08-30-2023 Albumin/Creatinine DL <= 20 mg/L (U) [Mass ratio] 20.4 mg/g 0.0-29.9 [facility] Comment on above: NO MICROALBUMINURIA 0-29 MG/GCLINICAL MICROALBUMINURIA 30-300 MG/GMACROALBUMINURIA >300 MG/G XR wrist LT min 3V*on 2023 XR wrist LT min 3V* [place] [address] XRay Report Signed Patient: Víctor Nichols MR#: [id number] : 1950 Acct:[id number] Age/Sex: 72 / M ADM Date: 08/29/23 Loc: ICXD Room: Type: [facility] Attending Dr: Luis Alberto Carrasco MD Copies to: Luis Alberto Carrasco MD Ordering Provider: Luis Alberto Carrasco MD Date of Service: 08/29/23 XR/XR wrist LT min 3V*: M25.532, E11.65, I10 XR wrist LT min 3V* 08/29/2023 4:00 PM SIGNS AND SYMPTOMS: Lump on ulnar aspect of left wrist PROTOCOL: Frontal, lateral, and oblique radiographs of the left wrist COMPARISON: None FINDINGS: There is narrowing of the radiocarpal joint space. There is slight widening of the scapholunate junction suggesting a scapholunate ligament injury. There is a positive ulnar variance. There is mild chondrocalcinosis of the triangular fibrocartilage. There is no fracture or dislocation. Soft tissue swelling is noted along the ulnar aspect of the wrist. XR/XR wrist LT min 3V* IMPRESSION: The radiocarpal joint degenerative changes are noted. There is widening of the scapholunate junction measuring up to 4 mm suggesting a scapholunate ligament injury. There is also a positive ulnar variance. Chondrocalcinosis is noted in the triangular fibrocartilage. This is suggestive of underlying CPPD. Impression dictated by: Chad Scales M.D.08/29/2023 8:40 PM Dictation Location: [place] [address] Transcribed By: [facility] 08/29/232039 Dictated By: Chad Scales II, MD 08/29/232036 Signed By: 08/29/232039 Normal [facility] CARDIAC STRESS/REST INJE CTIONon 10-31-2022 [facility] CARDIAC STRESS/REST INJECTION Patient Name: VÍCTOR NICHOLS STUDY: MYOCARDIAL PERFUSION STRESS TEST WITH LEXISCAN Performing facility: [facility], [address] [place] [address], [address], [address] Provider: Helen Clark MD, [facility] PCP: Dr. Alize Carrasco Supervising provider: [facility] Clark MD, [facility] INDICATION: ASCVD Hx PTCA Diastolic dysfunction Hx CABG Pre-operative risk assessment for Knee surgery scheduled at [facility] on [facility]. HISTORY: Gender: M; Age: 71 y/o ; Height: 157.48 cm; Weight: 96.1833985 kg. CAD; High Cholesterol; Previous CT; HTN; COPD; Quit smoking 14 years ago. Cardiac catheterization on 2007, 2013, 2017, 2018, 2019. PTCA on 2007. CABG on 2004. COMPARISON: Previous nuclear testing completed [id number] at [facility]. ACCESSION NUMBER(S): [id number]; [id number]; [id number] ORDERING CLINICIAN: JOSHUA CLARK TECHNIQUE: ONE DAY protocol. Stress injection: Date:10-31-22, 33.8 mCi of Myoview IV 20 seconds after rapid injection of Lexiscan. Rest injection: Date: 10-31-22, 11.4 mCi of Myoview IV at rest. The patient had a rapid injection of 0.4 mg of Lexiscan IV over 10 seconds. Imaging was performed by gated tomographic technique. Reason for Lexiscan: Crutches, Knee pain STRESS TEST DATA: Resting heart rate was 62 BPM. Resting blood pressure was 138/82 mmHg. Peak blood pressure was 128/76 mmHg. Peak heart rate was 84 BPM. TEST TERMINATED DUE TO: Protocol completed FINDINGS: STRESS TEST RESULTS: Resting electrocardiogram revealed normal sinus rhythm. There were no significant ischemic ECG changes or dysrhythmias. The patient did not have chest pains/symptoms during procedure. There was a normal recovery phase. IMAGING RESULTS: Image quality was good. Rest and stress tomographic images were reviewed and revealed normal perfusion without evidence of ischemia, myocardial infarction, or left ventricular dilatation with stress. Overall left ventricular systolic function appeared to be normal without regional wall motion abnormalities. Ejection fraction was 61%. TID is 1.18 and is normal. There was no evidence of attenuation artifact. IMPRESSION: Normal Lexiscan Myoview cardiac perfusion stress test. No evidence of ischemia or myocardial infarction by perfusion imaging. Normal left ventricular systolic function, ejection fraction 61%. When compared to a study from 2019, no interval changes were seen. Electronically signed by: SEEMA CLIFFORD MD Normal [facility] No Panel Informationon 10-31 Normal -[facility] [address] DO Work Phone: Creatinine and Glomerular fi ltration rate.predicted panel (S/P/Bld)Ordered By: Luis Alberto Carrasco on 09-20-2021 Creatinine [Mass/Vol] 1.16 mg/dL 0.64-1.27 [facility] Estimated glomerular filtrat ion rate (GFR) non- AmericanOrdered By: Luis Alberto Carrasco on 09-20-2021 GFR/1.73 sq M.predicted among non-blacks MDRD (S/P/Bld) [Vol rate/Area] > 60 mL/Min [facility] No Panel InformationOrdered By: Luis Alberto Carrasco on 09-20-2021 Estimated GFR () > 60 mL/Min [facility] Comment on above: GFR estimated refere nce range: According to KDOQI guidelines, <60 ml/min/1.73m2 is sufficient to diagnose a patient with chronic kidney disease. Pharmacy Creatinine Clearance (Chem N/A [facility] Serum or plasma calcium vadim urement (mass/volume)Ordered By: Luis Alberto Carrasco on 09-20-2021 Calcium [Mass/Vol] 9.2 mg/dL 8.2-10.2 [facility] Serum or plasma chloride sheri surement (moles/volume)Ordered By: Luis Alberto Carrasco on 09-20-2021 Chloride [Moles/Vol] 100 mmol/L 95-114 [facility] Serum or plasma glucose vadim urement (mass/volume)Ordered By: Luis Alberto Carrasco on 09-20-2021 Glucose [Mass/Vol] 112 mg/dL 70-100 [facility] Comment on above: ADA recommended refe rence range Random Glucose Reference Range is dependent on time and content of last meal. Glucose of more than 200 mg/dL in a nonstressed, ambulatory subject supports the diagnosis of Diabetes Mellitus. Serum or plasma potassium me asurement (moles/volume)Ordered By: Luis Alberto Carrasco on 09-20-2021 Potassium [Moles/Vol] 4.3 mmol/L 3.5-5.1 [facility] Serum or plasma sodium measu rement (moles/volume)Ordered By: Luis Alberto Carrasco on 09-20-2021 Sodium [Moles/Vol] 136 mmol/L 136-146 [facility] Serum or plasma total carbon dioxide measurement (moles/volume)Ordered By: Luis Alberto Carrasco on 09-20-2021 CO2 [Moles/Vol] 27.3 mmol/L 22.0-30.0 [facility] Serum or plasma urea nitroge n measurement (mass/volume)Ordered By: Luis Alberto Carrasco on 09-20-2021 Urea nitrogen [Mass/Vol] 16 mg/dL 9-23 [facility] Laboratory - Chemistry and C hemistry - challengeOrdered By: Ras Washburn on 09-04-2021 Cobalamin (Vitamin B12) [Mass/Vol] 315 pg/mL 180-914 [facility] TSH DL <= 0.005 mIU/L QnOrde red By: Ras Washburn on 09-04-2021 TSH Qn 1.49 m[IU]/L 0.45-5.33 [facility] Office Visit (Cardiology)on 09-01-2021 Follow-up visit Diagnoses/Problems Assessed ASCVD (arteriosclerotic cardiovascular disease) (429.2,440.9) (I25.10) History of PTCA (V45.82) (Z98.61) Hyperlipidemia (272.4) (E78.5) Hypertension (401.9) (I10) S/P CABG (coronary artery bypass graft) (V45.81) (Z95.1) [id number] Chronic obstructive pulmonary disease (496) (J44.9) Class 2 obesity with body mass index (BMI) of 37.0 to 37.9 in adult (278.00,V85.37) (E66.9,Z68.37) Former smoker (V15.82) (Z87.891) quit 2009 Orders ASCVD (arteriosclerotic cardiovascular disease) Renew: Atorvastatin Calcium 40 MG Oral Tablet; TAKE ONE TABLET BY MOUTH DAILY AT BEDTIME Class 2 obesity with body mass index (BMI) of 37.0 to 37.9 in adult Healthy Weight Tips; Status:Complete; Done: [id number] Hyperlipidemia Renew: Aspirin EC 81 MG Oral Tablet Delayed Release; TAKE 1 TABLET Daily SocHx: Former smoker Tobacco Use Screening; Status:Complete; Done: [id number] Patient Instructions By signing my name below, I, Elizabet Hogan LPN, attest that this documentation has been prepared under the direction and in the presence of Dr. Joshua Clark MD. All medical record entries made by the Scribe were at my direction and personally dictated by me. I have reviewed the chart and agree that the record accurately reflects my personal performance of the history, physical exam, discussion and plan. Please bring all medicines, vitamins, and herbal supplements with you when you come to the office. Prescriptions will not be filled unless you are compliant with your follow up appointments or have a follow up appointment scheduled as per instruction of your physician. Refills should be requested at the time of your visit. Patient provided Falls Prevention education sheet. Follow up in 6-9 months Chief Complaint VÍCTOR NICHOLS is being seen for a 4 month follow-up of. History of Present Illness Patient returns in follow-up of problems as noted. He is doing well. I cannot elicit any angina CHF arrhythmia or neurologic symptomatology. Treatment and control of his risk factors including his hypertension and hyperlipidemia is reviewed and felt to be adequate and appropriate. He has none of the symptoms of coronary disease that preceded his original diagnosis and subsequent PTCA and/or bypass surgery because of this we believe he is doing well. We did discuss his COPD from his prior smoking history and it is not lifestyle limiting. He was congratulated on his continued tobacco abstinence. We did advocate a calorie restricted diet with exercise and weight loss. Surgical History Problems History of Appendectomy History of Cardiac catheterization with stent placement History of Colonoscopy [id number] History of Coronary artery bypass graft [id number] History of Percutaneous transluminal coronary angioplasty Past Medical History Problems History of angina pectoris (V12.59) (Z86.79) Current Meds Medication NameInstruction Albuterol Sulfate (2.5 MG/3ML) 0.083% Inhalation Nebulization SolutionUSE 1 UNIT DOSE EVERY 4-6 HOURS NEEDED FOR WHEEZING . Aspirin EC 81 MG Oral Tablet Delayed ReleaseTAKE 1 TABLET Daily Atorvastatin Calcium 40 MG Oral TabletTAKE ONE TABLET BY MOUTH DAILY AT BEDTIME Clopidogrel Bisulfate 75 MG Oral TabletTake one tablet once daily diazePAM 2 MG Oral TabletTAKE ONE TABLET BY MOUTH TWICE A DAY NEEDED Donepezil HCl - 5 MG Oral TabletTAKE ONE TABLET BY MOUTH ONCE DAILY AT BEDTIME Isosorbide Mononitrate ER 120 MG Oral Tablet Extended Release 24 HourTAKE ONE TABLET BY MOUTH DAILY Lisinopril-hydroCHLOR Othiazide 10-12.5 MG Oral TabletTAKE ONE TABLET BY MOUTH ONCE DAILY Lumigan 0.03 % SOLNINSTILL 1 DROP INTO BOTH EYES ONCE DAILY IN THE EVENING. Metoprolol Succinate ER 25 MG Oral Tablet Extended Release 24 HourTAKE 1 TABLET ONCE DAILY. Nitroglycerin 0.4 MG Sublingual Tablet SublingualPLACE 1 TABLET UNDER THE TONGUE EVERY 5 MINUTES FOR UP TO 3 DOSES NEEDED FOR CHEST PAIN.CALL 911 IF PAIN PERSISTS. Omeprazole 20 MG Oral Capsule Delayed ReleaseTAKE ONE CAPSULE BY MOUTH ONCE DAILY Spiriva Respimat 2.5 MCG/ACT Inhalation Aerosol SolutionINHALE 2 PUFFS BY MOUTH DAILY Spironolactone 25 MG Oral TabletTAKE 1 TABLET DAILY. Venlafaxine HCl ER 150 MG Oral Capsule Extended Release 24 HourTAKE 1 CAPSULE BY MOUTH ONCE DAILY. Allergies Medication Statins Hives;; Recorded By: Gisell Maya; 03/21/2021 8:41:13 AM Duragesic-100 PT72 Rash; Recorded By: Gisell Maya; 03/21/2021 8:41:13 AM morphine Itching; Recorded By: Gisell Maya; 03/21/2021 8:41:13 AM Ranexa Nausea; Recorded By: Gisell Maya; 03/21/2021 8:41:13 AM Social History Problems Caffeine use (V49.89) (Z78.9) 1-2 cups of coffee daily Consumes alcohol (V49.89) (Z72.89) occasionally Former smoker (V15.82) (Z87.891) quit 2008 No illicit drug use Review of Systems Constitutional: not feeling tired. Eyes: no eyesight problems. ENT: no hearing loss and no nosebleeds. Cardiovascular: no (more content not included)... Normal [employer] Tobacco Screening.on 022 Adult depression screening assessment No [facility] [employer] DO Work Phone: Fall risk assessment b) One or more fall s in the last year [facility] [employer] 250 DO Work Phone: Tobacco use status [facility] b) No [facility] [employer] DO Work Phone: [facility] VÍCTOR NICHOLS ([id number]) 1950 M Date Time Provider Department 08/02/21 WANG RODRIGUES During your visit today, we recorded the following information about you: Adiel Lu 08/02/2021 2:[address] Reese's is referring patient to Dr. Rodrigues for a Yag and SLT Laser. Spoke to patient, he needs to speak with his daughter for his transportation and he will call back. Informed him days Dr. Rodrigues is in [place]. [facility] Patient Automatic Scre[employer] 08/02/2021 3:12 PM Signed Patient has been scheduled Allergies As of Date: 08/02/2021 Noted Allergy Reaction FENTANYL 05/29/2018 2 - Rash MORPHINE 05/29/2018 9 - Itching Date Reviewed: 03/31/2021 Reviewed by: Ade Webb LPN - Fully Assessed Reason for Visit: Appointment [[id number]] Prescriptions as of 08/02/2021 - SPIRIVA RESPIMAT 2.5 mcg/actuation inhaler Inhale 2 Puffs as instructed once daily. - isosorbide mononitrate ER (IMDUR) 120 mg 24 hr tablet Take 120 mg by mouth once daily. - albuterol (PROVENTIL) 2.5 mg /3 mL (0.083 %) nebulizer solution Albuterol Sulfate Active 2.5 MG Inhalation Q4H November 14, 2017 10:03am - aspirin, enteric coated (ASPIRIN, ENTERIC COATED) 81 mg EC tablet Take 81 mg by mouth. - atenolol (TENORMIN) 25 mg tablet Take 25 mg by mouth. - atorvastatin (LIPITOR) 40 mg tablet Atorvastatin Active 40 MG Oral Every evening October 28, 2019 9:10am - Benzonatate 200 mg capsule Benzonatate Active 200 MG Oral Three times daily April 09, 2020 3:41pm - bimatoprost (LUMIGAN) 0.01 % drop ophthalmic drops Bimatoprost Active 1 DROPS Ophthalmic Every evening November 14, 2017 10:03am - clopidogrel (PLAVIX) 75 mg tablet Take 75 mg by mouth. - omeprazole (PRILOSEC) 20 mg capsule Omeprazole Active 20 MG Oral Daily November 14, 2017 10:03am - lisinopril-hydroCHLOR Othiazide (PRINZIDE,ZESTORETIC) 10-12.5 mg per tablet Take 1 tablet by mouth once daily. - spironolactone (ALDACTONE) 25 mg tablet Spironolactone Active 25 MG Oral Daily October 25, 2019 6:35am - metoprolol succinate ER (TOPROL XL) 25 mg 24 hr tablet Metoprolol Succinate Active 25 MG Oral Daily October 28, 2019 9:41am - nitroglycerin sublingual (NITROQUICK) 0.4 mg SL tablet Dissolve 0.4 mg under the tongue at bedtime as needed. - diazePAM (VALIUM) 5 mg tablet Take 5 mg by mouth every 6 hours as needed. - traMADol (ULTRAM) 50 mg tablet Take 50 mg by mouth every 6 hours as needed for pain. - venlafaxine ER (EFFEXOR XR) 37.5 mg 24 hr capsule Take 1 capsule by mouth once daily. Take 1 capsule daily for 1 week then increase to 2 capsules daily for 1 week then increase to 150 mg capsules and continue on that dose - venlafaxine ER (EFFEXOR XR) 150 mg 24 hr capsule Take 1 capsule by mouth once daily. Problem List As Of Date: 08/02/2021 (None) Encounter Status:Closed by [facility] [facility] PATIENT COVERING MACHINE TENDERSHAQ on 08/02/21 [facility] JANNAOVjohnathon 03-31-2021 CNOV Office Visit (NEADMN ) VÍCTOR NICHOLS ([id number]) 1950 M Date Time Provider Department 03/31/21 10:30 AM JAVIER DE SANTIAGO During your visit today, we recorded the following information about you: Pulse Blood pressure Weight Height 81/minute 154/70 97.1 kg 1.575 m Javier De Santiago MD, PhD 04/10/2021 11:39 PM [facility] Consultation Follow-Up Visit March 31, 2021 Patient is here: 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 He has also started exercise and weightloss program as discussed last time CT head reviewed indicating:RESULT: ? Funeral Sales Manager (topogram) images: No significant findings. ? Post-operative change: None. ? Acute change: No evidence of an acute infarct or other acute parenchymal process. ? Hemorrhage: No evidence of acute intracranial hemorrhage. ECASS hemorrhagic transformation score: Not Applicable ? Mass Lesion / Mass Effect: There is no evidence of an intracranial mass or extraaxial fluid collection. No significant mass effect. ? Chronic change: Scattered patchy foci of low attenuation are present within supratentorial white matter which is a nonspecific finding but likely represents mild microvascular ischemia. ? Parenchyma: There is mild generalized volume loss.? Ventricles: The ventricles are within normal limits of size and configuration for age. ? Paranasal sinuses and skull base: The visualized paranasal sinuses are grossly clear. The skull base and imaged soft tissues are unremarkable. ? ? IMPRESSION: No acute intracranial process. BP 154/70 Pulse 81 Ht 5' 2 (1.58m) Wt 214 lb (97.1kg) BMI 39.13 kg/(m2). Exam: he has much decreased involuntary movements in his neck and arm, is noted to have hand and finger movements that he can stop any any times. No change in his pain exam, power, and gait. Impression: as above with some improvement in his movement Suggest: Discussed his care in detail To continue current measures if therapy with F/U in 3-4 months, or earlier with new symptoms. Javier De Santiago MD, PhD VT: 25 min Referring Provider: SELF [[id number]] Allergies As of Date: 03/31/2021 Noted Allergy Reaction FENTANYL 05/29/2018 2 - Rash MORPHINE 05/29/2018 9 - Itching Date Reviewed: 03/31/2021 Reviewed by: Ade Webb LPN - Fully Assessed Reason for Visit: Established Patient [175] Primary Visit Diagnosis:Primary osteoarthritis of both hips [M16.0] Other Visit Diagnoses:Spondylosis [M47.9] Arthropathy of spinal facet joint [M47.819] Radiculopathy due to lumbar intervertebral disc disorder [M51.16] Prescriptions as of 04/10/2021 - SPIRIVA RESPIMAT 2.5 mcg/actuation inhaler Inhale 2 Puffs as instructed once daily. - isosorbide mononitrate ER (IMDUR) 120 mg 24 hr tablet Take 120 mg by mouth once daily. - albuterol (PROVENTIL) 2.5 mg /3 mL (0.083 %) nebulizer solution Albuterol Sulfate Active 2.5 MG Inhalation Q4H November 14, 2017 10:03am - aspirin, enteric coated (ASPIRIN, ENTERIC COATED) 81 mg EC tablet Take 81 mg by mouth. - atenolol (TENORMIN) 25 mg tablet Take 25 mg by mouth. - atorvastatin (LIPITOR) 40 mg tablet Atorvastatin Active 40 MG Oral Every evening October 28, 2019 9:10am - Benzonatate 200 mg capsule Benzonatate Active 200 MG Oral Three times daily April 09, 2020 3:41pm - bimatoprost (LUMIGAN) 0.01 % drop ophthalmic drops Bimatoprost Active 1 DROPS Ophthalmic Every evening November 14, 2017 10:03am - clopidogrel (PLAVIX) 75 mg tablet Take 75 mg by mouth. - omeprazole (PRILOSEC) 20 mg capsule Omeprazole Active 20 MG Oral Daily November 14, 2017 10:03am - lisinopril-hydroCHLOR Othiazide (PRINZIDE,ZESTORETIC) 10-12.5 mg per tablet Take 1 tablet by mouth once daily. - spironolactone (ALDACTONE) 25 mg tablet Spironolactone Active 25 MG Oral Daily October 25, 2019 6:35am - metoprolol succinate ER (TOPROL XL) 25 mg 24 hr tablet Metoprolol Succinate Active 25 MG Oral Daily October 28, 2019 9:41am - nitroglycerin sublingual (NITROQUICK) 0.4 mg SL tablet Dissolve 0.4 mg under the tongue at bedtime as needed. - diazePAM (VALIUM) 5 mg tablet Take 5 mg by mouth every 6 hours as needed. - traMADol (ULTRAM) 50 mg tablet Take 50 mg by mouth every 6 hours as needed for pain. - venlafaxine ER (EFFEXOR XR) 37.5 mg 24 hr capsule Take 1 capsule by mouth once daily. Take 1 capsule daily for 1 week then increase to 2 capsules daily for 1 week then increase to 150 mg capsules and continue on that dose - wallace (more content not included)... Normal [facility] CT BRAIN WO IVCONon 03-31-[address] BRAIN WO IVCON * * *Final Report* * * DATE OF EXAM: Mar 31 2021 7:46AM [facility] [place] BRAIN [place] IVCON / PROCEDURE REASON: Cerebral infarction, unspecified mechanism (HCC) * * * * Physician Interpretation * * * * EXAMINATION: CT BRAIN WO IVCON CLINICAL HISTORY: Cerebral infarction, unspecified mechanism (HCC) TECHNIQUE: Serial axial images without IV contrast were obtained from the vertex to the foramen magnum. MQ: CTBWO_3 CT Radiation dose: Integrated Dose-Length Product (DLP) for this visit = 716 mGy*cm CT Dose Reduction Employed: No dose reduction techniques were required COMPARISON: None. RESULT: Funeral Sales Manager (topogram) images: No significant findings. Post-operative change: None. Acute change: No evidence of an acute infarct or other acute parenchymal process. Hemorrhage: No evidence of acute intracranial hemorrhage. ECASS hemorrhagic transformation score: Not Applicable Mass Lesion / Mass Effect: There is no evidence of an intracranial mass or extraaxial fluid collection. No significant mass effect. Chronic change: Scattered patchy foci of low attenuation are present within supratentorial white matter which is a nonspecific finding but likely represents mild microvascular ischemia. Parenchyma: There is mild generalized volume loss. Ventricles: The ventricles are within normal limits of size and configuration for age. Paranasal sinuses and skull base: The visualized paranasal sinuses are grossly clear. The skull base and imaged soft tissues are unremarkable. IMPRESSION: No acute intracranial process. Soil Science Teacher: [facility] Transcribe Date/Time: Mar 31 2021 8:11A Dictated by : HENRIQUE OMER, DO This examination was interpreted and the report reviewed and electronically signed by: DANNY JOHNSTON MD on Mar 31 2021 9:26AM EST [id number] Normal [facility] CNOVon 03-06-2021 CNOV Office Visit (NREUS2 ) VÍCTOR NICHOLS ([id number]) 1950 M Date Time Provider Department 03/06/21 10:00 AM RONALD CASTROS2 During your visit today, we recorded the following information about you: Pulse Blood pressure Weight Height 79/minute 108/45 98.9 kg 1.6 m [facility] 03/06/2021 3:00 PM Signed Intake information documented in the prior visit with Dr. Javier De Santiago today. Ronald Castro MD 03/06/2021 3:00 PM Signed [facility] - NEW PATIENT EVALUATION Javier De Santiago [address] [facility] [address] De Santiago: Thank you for refering Mr. Nichols to our clinic today. As you know he is a 70 year old right-handed male who is seen in consultation for evaluation of since . He is seen . Subjective HISTORY OF PRESENT ILLNESS: Initial HPI Patient complains of abnormal movements. Started around 3-4 years or more ago. Onset was gradual and has been getting worse with time. Was a few times days but is now constant. Only goes away when asleep. Gets worse when moving his neck a lot. In addition, the following areas that may be affected by abnormal involuntary movements were evaluated: Daily activities Difficulties with eatin (none) Difficulties in dressin (none) Difficulties with hygiene activities: Yes (slight) Difficulties with handwriting: Yes (mild) Difficulties with doing hobbies and other activities: Yes (moderate) Difficulties turning in bed: Yes (slight) Difficulties getting out of bed, car or chair: Yes (moderate) Tremors/Gait/Balance Shaking or tremors: Yes (mild) Walking and balance problems: Yes (moderate): Leg gives out. Dizziness Number of falls in the Last Month: 3 Gait freezing: Yes (slight) Autonomic/Pain Lightheadeness on standing: Yes (moderate): Urinary problems: Yes (slight) Constipation problems: Yes (slight) Pain and other sensations: Yes (moderate): Speech/Swallowing Speech problems: 0 (none) Drooling: Yes (mild) Chewing and swallowing problems: 0 (none) Sleep/Fatigue Sleep problems: Yes (severe): Daytime sleepiness: Yes (mild) Fatigue: Yes (severe) REM sleep behavior disorder: Restless Legs Syndrome: Impaired sense of smell: Yes: had problems during Covid 19 but improving Mood/Behavior Depression: PQH-9 = 18 usually representing moderately severe (15-19) depression. Anxiety: LEANDRA-7 = 7 usually representing mild (5-9) anxiety. Finally, the following table shows the patient's overall global physical and mental health using the PROMIS scale: PROMIS-10 Office Visit from 03/06/2021 in [facility] Global Physical Health T Score 32.4 Global Mental Health T Score 56 0-10 Standard Pain Scale 2 *PROMIS-10 scoring scale: mean = 50, over 50 is above average, under 50 is below average Review of Systems Constitutional: Negative. HENT: Negative. Eyes: Negative. 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 Cardiovascular: Negative. Gastrointestinal: Positive for abdominal pain. Genitourinary: Positive for difficulty urinating. Hematologic/Lymphatic : Negative. Allergic/Immunologic: Negative. Musculoskeletal: Positive for arthralgias, back pain, myalgias, muscle weakness, neck pain and neck stiffness. Skin: Negative. ALLERGIES Allergen Reactions - Fentanyl Itching - Morphine Itching Current Outpatient Medications Medication Sig - albuterol (PROVENTIL) 2.5 mg /3 mL (0.083 %) nebulizer solution Albuterol Sulfate Active 2.5 MG Inhalation Q4H November 14, 2017 10:03am - aspirin, enteric coated (ASPIRIN, ENTERIC COATED) 81 mg EC tablet Take 81 mg by mouth. - atenolol (TENORMIN) 25 mg tablet Take 25 mg by mouth. - atorvastatin (LIPITOR) 40 mg tablet Atorvastatin Active 40 MG Oral Every evening October 28, 2019 9:10am - Benzonatate 200 mg capsule Benzonatate Active 200 MG Oral Three times daily April 09, 2020 3:41pm - bimatoprost (LUMIGAN) 0.01 % drop ophthalmic drops Bimatoprost Active 1 DROPS Ophthalmic Every evening November 14, 2017 10:03am - clopidogrel (PLAVIX) 75 mg tablet Take 75 mg by mouth. - isosorbide mononitrate ER (IMDUR) 60 mg 24 hr tablet Isosorbide Mononitrate Active 60 MG Oral Daily October 27, 2017 9:26pm - omeprazole (PRILOSEC) 20 mg capsule Omeprazole Active 20 MG Oral Daily November 14, 2017 10:03am - lisinopril-hydroCHLOR Othiazide (PRINZIDE,ZESTORETIC) 10-12.5 mg per tablet Take 1 tablet by mouth once daily. - spironolactone (ALDACTONE) 25 mg tablet Spironolactone Active 25 MG Oral Daily October 25, 2019 6:35am - metoprolol succinate ER (TOPROL XL) 25 mg 24 hr tablet Metoprolol Succinate Active 25 MG Oral Daily October 28, 2019 9:41am - nitroglycerin sublingual (NITROQUICK) 0.4 mg SL tablet Dissolve 0.4 mg under the tongue at bedtime as needed. - diazePAM (VALIUM) 5 mg tablet Take 5 mg by mouth every 6 ho (more content not included)... Normal [facility] CNOV Office Visit (NEADMN ) VÍCTOR NICHOLS ([id number]) 1950 M Date Time Provider Department 03/06/21 8:00 AM JAVIER DE SANTIAGO During your visit today, we recorded the following information about you: Pulse Blood pressure Weight Height 79/minute 108/45 98.9 kg 1.6 m Javier De Santiago MD, PhD 03/13/2021 6:35 PM Signed [facility] March 06, 2021 Víctor Nichols Sr. Requesting Physician: LAM ANDREW [address] [place] [address] [place] [address] PCP: Tim Adams Jr. My recommendations will be communicated with the requesting physician via mail or by means of shared electronic medical records. CC: low back pain, neck pain and lower extremity pain HPI: Víctor Nichols Sr. is a 70 year old male who presents with a complaint of constant with variable intensity diffuse low back pain, neck pain and L>>R hip and lower extremity pain, described as achy. According to the patient he has been suffering form several years of neck and LBP but it wasn't until last year as he started noticing pain in his hips nad legs affecting the left more than the R sided. Patient denies any DUKE, change in vision, hearing, speech, swallowing, R sided weakness/numbness, coordination/gait issues and issues with B/B. But when asked he reports using the bathroom 2-3 times per night. He has been also experiencing recurrent twitching movements across the L side of his neck.shoulder and arm/hand. He also notes L sided weakness and some numbness that hs partially attributed to a former stroke. Apparently he underwent S/P CABG in 2004, and awakes with a L sided face/arm and leg weakness nad numbness; was told to have suffered a stroke and was send home without imaging; the left side still feels different. He is also s/p carpal tunnel release. S/P ACDF in 2007 helped pain for a few years Average pain intensity is rated as a 7/10. Multiple activities of daily living are noted to increase pain; these include ambulation, lifting, standing, and during exposure to stress, weather change and cold. Rest and medications would provide some relief. Patient denies the following pertinent symptoms: unintentional weight loss, fevers, chills, or night sweats and ever having cancer. Past Treatments have included: trials of medications. Enrollment in Physical Therapy which did not help. Patient is not currently performing a home exercise program. Injections: he has failed multiple spinal blocks The following MRI images of patients were reviewed: Lumbar MRI from 2013 indicating: L4/5 grade one listhesis Moderate L4/5 epidural lipomatosis Mild L5/S1 disc protrusion ALLERGIES Allergen Reactions - Fentanyl Itching - Morphine Itching Current Outpatient Medications Medication Sig - albuterol (PROVENTIL) 2.5 mg /3 mL (0.083 %) nebulizer solution Albuterol Sulfate Active 2.5 MG Inhalation Q4H November 14, 2017 10:03am - aspirin, enteric coated (ASPIRIN, ENTERIC COATED) 81 mg EC tablet Take 81 mg by mouth. - atenolol (TENORMIN) 25 mg tablet Take 25 mg by mouth. - atorvastatin (LIPITOR) 40 mg tablet Atorvastatin Active 40 MG Oral Every evening October 28, 2019 9:10am - Benzonatate 200 mg capsule Benzonatate Active 200 MG Oral Three times daily April 09, 2020 3:41pm - bimatoprost (LUMIGAN) 0.01 % drop ophthalmic drops Bimatoprost Active 1 DROPS Ophthalmic Every evening November 14, 2017 10:03am - clopidogrel (PLAVIX) 75 mg tablet Take 75 mg by mouth. - isosorbide mononitrate ER (IMDUR) 60 mg 24 hr tablet Isosorbide Mononitrate Active 60 MG Oral Daily October 27, 2017 9:26pm - omeprazole (PRILOSEC) 20 mg capsule Omeprazole Active 20 MG Oral Daily November 14, 2017 10:03am - lisinopril-Hydrochlor othiazide (PRINZIDE,ZESTORETIC) 10-12.5 mg per tablet Take 1 tablet by mouth once daily. - spironolactone (ALDACTONE) 25 mg tablet Spironolactone Active 25 MG Oral Daily October 25, 2019 6:35am - metoprolol succinate ER (TOPROL XL) 25 mg 24 hr tablet Metoprolol Succinate Active 25 MG Oral Daily October 28, 2019 9:41am - nitroglycerin sublingual (NITROQUICK) 0.4 mg SL tablet Dissolve 0.4 mg under the tongue at bedtime as needed. - diazePAM (VALIUM) 5 mg tablet Take 5 mg by mouth every 6 hours as needed. - traMADol (ULTRAM) 50 mg tablet Take 50 mg by mouth every 6 hours as needed for pain. PMH: HTN, obesity, as above PSH: as above Social History Tobacco Use - Smoking status: Never Smoker - Smokeless tobacco: Never Used Substance Use Topics - Alcohol use: Yes Comment: occasionally - Drug use: Not on file ROS: Patient denies skin rashes, tinnitus, cough, fever, dizziness, fainting, orthostasis, vision or language changes. No shortness of breath, chest pain, nausea, vomiting or diarrhea. Denies ease of bleeding or bruising. Examination: BP 108/45 Pulse 79 (more content not included)... Normal [facility] HISTORY PHYSICALon 11-01-202 1 HISTORY PHYSICAL HNO ID: [id number] Author: Javier De Santiago MD, PhD Service: ? Author Type: Physician Type: HANDP Filed: 03/13/2021 6:35 PM Note Text: [facility] March 06, 2021 Víctor Nichols Sr. Requesting Physician: LAM ANDREW [address] [place] [address] PCP: Tim Adams Jr. My recommendations will be communicated with the requesting physician via mail or by means of shared electronic medical records. CC: low back pain, neck pain and lower extremity pain HPI: Víctor Nichols Sr. is a 70 year old male who presents with a complaint of constant with variable intensity diffuse low back pain, neck pain and L>>R hip and lower extremity pain, described as achy. According to the patient he has been suffering form several years of neck and LBP but it wasn't until last year as he started noticing pain in his hips nad legs affecting the left more than the R sided. Patient denies any DUKE, change in vision, hearing, speech, swallowing, R sided weakness/numbness, coordination/gait issues and issues with B/B. But when asked he reports using the bathroom 2-3 times per night. He has been also experiencing recurrent twitching movements across the L side of his neck.shoulder and arm/hand. He also notes L sided weakness and some numbness that hs partially attributed to a former stroke. Apparently he underwent S/P CABG in 2004, and awakes with a L sided face/arm and leg weakness nad numbness; was told to have suffered a stroke and was send home without imaging; the left side still feels different. He is also s/p carpal tunnel release. S/P ACDF in 2007 helped pain for a few years Average pain intensity is rated as a 7/10. Multiple activities of daily living are noted to increase pain; these include ambulation, lifting, standing, and during exposure to stress, weather change and cold. Rest and medications would provide some relief. Patient denies the following pertinent symptoms: unintentional weight loss, fevers, chills, or night sweats and ever having cancer. Past Treatments have included: trials of medications. Enrollment in Physical Therapy which did not help. Patient is not currently performing a home exercise program. Injections: he has failed multiple spinal blocks The following MRI images of patients were reviewed: Lumbar MRI from 2014 indicating: L4/5 grade one listhesis Moderate L4/5 epidural lipomatosis Mild L5/S1 disc protrusion ALLERGIES Allergen Reactions - Fentanyl Itching - Morphine Itching Current Outpatient Medications Medication Sig - albuterol (PROVENTIL) 2.5 mg /3 mL (0.083 %) nebulizer solution Albuterol Sulfate Active 2.5 MG Inhalation Q4H November 14, 2017 10:03am - aspirin, enteric coated (ASPIRIN, ENTERIC COATED) 81 mg EC tablet Take 81 mg by mouth. - atenolol (TENORMIN) 25 mg tablet Take 25 mg by mouth. - atorvastatin (LIPITOR) 40 mg tablet Atorvastatin Active 40 MG Oral Every evening October 28, 2019 9:10am - Benzonatate 200 mg capsule Benzonatate Active 200 MG Oral Three times daily April 09, 2020 3:41pm - bimatoprost (LUMIGAN) 0.01 % drop ophthalmic drops Bimatoprost Active 1 DROPS Ophthalmic Every evening November 14, 2017 10:03am - clopidogrel (PLAVIX) 75 mg tablet Take 75 mg by mouth. - isosorbide mononitrate ER (IMDUR) 60 mg 24 hr tablet Isosorbide Mononitrate Active 60 MG Oral Daily October 27, 2017 9:26pm - omeprazole (PRILOSEC) 20 mg capsule Omeprazole Active 20 MG Oral Daily November 14, 2017 10:03am - lisinopril-Hydrochlor othiazide (PRINZIDE,ZESTORETIC) 10-12.5 mg per tablet Take 1 tablet by mouth once daily. - spironolactone (ALDACTONE) 25 mg tablet Spironolactone Active 25 MG Oral Daily October 25, 2019 6:35am - metoprolol succinate ER (TOPROL XL) 25 mg 24 hr tablet Metoprolol Succinate Active 25 MG Oral Daily October 28, 2019 9:41am - nitroglycerin sublingual (NITROQUICK) 0.4 mg SL tablet Dissolve 0.4 mg under the tongue at bedtime as needed. - diazePAM (VALIUM) 5 mg tablet Take 5 mg by mouth every 6 hours as needed. - traMADol (ULTRAM) 50 mg tablet Take 50 mg by mouth every 6 hours as needed for pain. PMH: HTN, obesity, as above PSH: as above Social History Tobacco Use - Smoking status: Never Smoker - Smokeless tobacco: Never Used Substance Use Topics - Alcohol use: Yes Comment: occasionally - Drug use: Not on file ROS: Patient denies skin rashes, tinnitus, cough, fever, dizziness, fainting, orthostasis, vision or language changes. No shortness of breath, chest pain, nausea, vomiting or diarrhea. Denies ease of bleeding or bruising. Examination: BP 108/45 Pulse 79 Ht 5' 3 (1.60m) Wt 218 lb (98.9kg) BMI 38.63 kg/(m2). Pleasant individual in NAD with above BMI, reactive affect, coherent cognition, preserved orientation to all spheres and normal higher cortical functions including language, praxis and stereognosis. (more content not included)... Normal [facility] XR CERVICAL 2V FLEX/EXTon XR CERVICAL 2V FLEX/EXT * * *Final Report* * * DATE OF EXAM: Mar 06 2021 11:17AM [id number] - XR CERVICAL 2V FLEX/EXT / PROCEDURE REASON: Spondylosis * * * * Physician Interpretation * * * * EXAMINATION: XR LUMBAR 4V AP/LAT/ FLEX/EXT, XR CERVICAL 2V FLEX/EXT HISTORY: Chronic low back and neck pain. TECHNIQUE: XR LUMBAR 4V AP/LAT/ FLEX/EXT, XR CERVICAL 2V FLEX/EXT weightbearing Laterality: NOT APPLICABLE Number of different views (projections): 4 (accession [id number]), 2 (accession [id number]) M: XB_1 COMPARISON: MRI lumbar spine 03/25/2014 RESULT: Cervical spine: No acute fracture. Discectomy and fusion with plating extending from C5 down to C7. Hardware is intact with no periprosthetic lucency. Mild anterolisthesis of C2, C3 and C4. Degenerative changes in the facet joints at multiple levels. Lumbar spine: No acute fracture. Grade 1 anterolisthesis of L4 on L5. Significant facet arthropathy of the lumbar spine, most prominent at L4 and L5. Disc space narrowing and osteophyte of the implant. Multiple levels worse at L5/S1. IMPRESSION: 1. Postsurgical and degenerative changes in the cervical spine with low-grade spondylolisthesis of multiple levels. 2. Degenerative changes of the lumbar spine, multilevel. Low-grade spondylolisthesis of L4. Soil Science Teacher: [facility] Transcribe Date/Time: Mar 06 2021 11:27A Dictated by : TASHA CASTANEDA MD This examination was interpreted and the report reviewed and electronically signed by: ARIES AVELAR MD on Mar 06 2021 11:47AM EST [id number] Normal [facility] XR HIP 2V JUDET VIEWSon 11-0 XR HIP 2V JUDET VIEWS * * *Final Report* * * DATE OF EXAM: Mar 06 2021 11:16AM [id number] - XR HIP 2V JUDET VIEWS / PROCEDURE REASON: Primary osteoarthritis of both hips * * * * Physician Interpretation * * * * HISTORY: pain in both hips no trauma. Primary osteoarthritis of both hips . TECHNIQUE: XR HIP 2V JUDET VIEWS Laterality: NOT APPLICABLE Number of different views (projections): 2 and 4 images COMPARISON: None RESULT: Remote deformity of the right iliac bone. Otherwise bony pelvis is intact. No fracture. Bilateral hips appear maintained. IMPRESSION: Bilateral hips maintained. Soil Science Teacher: [facility] Transcribe Date/Time: Mar 06 2021 11:25A Dictated by : ARIES AVELAR MD This examination was interpreted and the report reviewed and electronically signed by: ARIES AVELAR MD on Mar 06 2021 11:26AM EST [id number] Normal [facility] XR LUMBAR 4V AP/LAT/ FLEX/EX Ton 03-06-2021 XR LUMBAR 4V AP/LAT/ FLEX/EXT * * *Final Report* * * DATE OF EXAM: Mar 06 2021 11:17AM [id number] - XR LUMBAR 4V AP/LAT/ FLEX/EXT / PROCEDURE REASON: Radiculopathy due to lumbar intervertebral disc disorder * * * * Physician Interpretation * * * * EXAMINATION: XR LUMBAR 4V AP/LAT/ FLEX/EXT, XR CERVICAL 2V FLEX/EXT HISTORY: Chronic low back and neck pain. TECHNIQUE: XR LUMBAR 4V AP/LAT/ FLEX/EXT, XR CERVICAL 2V FLEX/EXT weightbearing Laterality: NOT APPLICABLE Number of different views (projections): 4 (accession [id number]), 2 (accession [id number]) M: XB_1 COMPARISON: MRI lumbar spine 03/25/2014 RESULT: Cervical spine: No acute fracture. Discectomy and fusion with plating extending from C5 down to C7. Hardware is intact with no periprosthetic lucency. Mild anterolisthesis of C2, C3 and C4. Degenerative changes in the facet joints at multiple levels. Lumbar spine: No acute fracture. Grade 1 anterolisthesis of L4 on L5. Significant facet arthropathy of the lumbar spine, most prominent at L4 and L5. Disc space narrowing and osteophyte of the implant. Multiple levels worse at L5/S1. IMPRESSION: 1. Postsurgical and degenerative changes in the cervical spine with low-grade spondylolisthesis of multiple levels. 2. Degenerative changes of the lumbar spine, multilevel. Low-grade spondylolisthesis of L4. Soil Science Teacher: PSCB Transcribe Date/Time: Mar 06 2021 11:27A Dictated by : TASHA CASTANEDA MD This examination was interpreted and the report reviewed and electronically signed by: ARIES AVELAR MD on Mar 06 2021 11:47AM EST [id number] Normal [facility] CNPNon 02-28-2021 CNPN Telephone (NENMMN) VÍCTOR NICHOLS ([id number]) 1950 M Date Time Provider Department 02/28/21 JAVIER DE SANTIAGO [facility] During your visit today, we recorded the following information about you: Rey Farrell 02/28/2021 2:14 PM Signed Medical records received and scanned in Allergies As of Date: 02/28/2021 (Not on File) Date Reviewed: Never Reviewed Reason for Visit: Received Outside Medical Records [[id number]] Cmt: [facility] Problem List As Of Date: 02/28/2021 (None) Encounter Status:Closed by BLESSING MCCAULEY on 02/28/21 [facility] XR NECK SOFT TISSUEon 2020 XR NECK SOFT TISSUE XR NECK SOFT TISSUE: HISTORY: Pain. COMPARISON: None available. TECHNIQUE: 3 radiographic view(s) obtained. FINDINGS: No definite radiopaque foreign body is visualized. The airway appears normal course and caliber. There are moderate calcifications in the neck bilaterally suggestive of atherosclerotic carotid artery calcifications. There are postsurgical changes consistent with ACDF at C5-C6. There is likely degenerative grade 1 anterolisthesis at C4-C5 and there is moderate multilevel facet arthropathy in the cervical spine. IMPRESSION: 1. No definite radiopaque foreign body within the visualized neck soft tissues. 2. Probable atherosclerotic carotid artery calcification. 3. Degenerative/post surgical changes in the cervical spine as described above. Electronically authenticated by: CHILO SON Date: 2020-11-22 20:26 Normal The [facility] Covid-19 PCR ([facility])on EUA Statement SEE BELOW Normal The [facility] Comment on above: Result Comment: This test is not yet approved or cleared by the [place] FDA. When there are no FDA-approved or cleared tests available, and other criteria are met, FDA can make tests available under an emergency access mechanism called an Emergency Use Authorization (EUA). The EUA for this test is supported by the [place] of Health and Human Service?s (HHS?s) declaration that circumstances exist to justify the emergency use of in vitro diagnostics for the detection and/or diagnosis of the virus that causes COVID-19. This EUA will remain in effect (meaning this test can be used) for the duration of the COVID-19 declaration justifying emergency of IVDs, unless it is terminated or revoked by FDA (after which the test may no longer be used). When diagnostic testing is negative, the possibility of a false negative should be considered in the context of a patients recent exposures and the presence of clinical signs and symptoms consistent with SARS-CoV-2. Performed By: #### [facility] #### [facility] [address] [place] [address] Yaya Florence SARS-CoV-2 (COVID-19) RNA BRIAN+probe Ql (Unsp spec) Not detected Normal NOT DETECTED [facility] Comment on above: Result Comment: This test is not yet approved or cleared by the [place] FDA. When there are no FDA-approved or cleared tests available, and other criteria are met, FDA can make tests available under an emergency access mechanism called an Emergency Use Authorization (EUA). The EUA for this test is supported by the [employer] Staff Member of Health and Human Service's (HHS's) declaration that circumstances exist to justify the emergency use of in vitro diagnostics for the detection and/or diagnosis of the virus that causes COVID-19. This EUA will remain in effect (meaning this test can be used) for the duration of the COVID-19 declaration justifying emergency of IVDs, unless it is terminated or revoked by FDA (after which the test may no longer be used). Performed By: #### C TB #### [facility] [address] [place] [address] Yaya Brantley Panel Information [facility] Vital Signs Date Time Vital Sign Value Performing Clinician Alissai lity 12-24-2023 13:27-0400 Body height 154.[address] [facility] 12-24-2023 13:270400 Body mass index (BMI) [Ratio] 41 kg/m2 [facility] 12-24-2023 13:040 Body weight 98.[address] [facility] 12-24-2023 13:27-0400 Diastolic blood pressure 65 mm[Hg] [facility] 12-24-2023 13:27-0400 Heart rate 72 /min [facility] 12-24-2023 13:27-0400 Systolic blood pressure 115 mm[Hg] [facility] 10-01-2023 09:0400 Body height 165.1 cm MD Luis Alberto Carrasco Work Phone: [facility] 10-01-2023 09:21-0400 Body mass index (BMI) [Ratio] 36.4 kg/m2 MD Luis Alberto Carrasco Work Phone: [facility] 10-01-2023 09:21-040 Body temperature 98.8 [degF] MD Luis Alberto Carrasco Work Phone: [facility] 10-01-2023 09:21-0400 Body weight 99.33 kg MD Luis Alberto Carrasco Work Phone: [facility] 10-01-2023 09:21-0400 Diastolic blood pressure 72 mm[Hg] MD Luis Alberto Carrasco Work Phone: [facility] 10-01-2023 09:21-0400 Heart rate 63 /min MD Luis Alberto Carrasco Work Phone: [facility] 10-01-2023 09:21-0400 Respiratory rate 20 /min MD Luis Alberto Carrasco Work Phone: [facility] 10-01-2023 09:21-0400 SaO2% (BldA) [Mass fraction] 98 % MD Luis Alberto Carrasco Work Phone: [facility] 10-01-2023 09:21-0400 Systolic blood pressure 139 mm[Hg] MD Luis Alberto Carrasco Work Phone: [facility] 09-24-2023 10:51-0400 Body height 158.8 cm Joshua Clark MD Work Phone: [facility] 09-24-2023 10:51-0400 Body mass index (BMI) [Ratio] 39.24 kg/m2 Joshua Clark MD Work Phone: [facility] 09-24-2023 10:51-0400 Body weight 98.88 kg Joshua Clark MD Work Phone: [facility] 09-24-2023 10:51-0400 Diastolic blood pressure 88 mm[Hg] Joshua Clark MD Work Phone: [facility] 09-24-2023 10:51-0400 Heart rate 68 /min Joshua Clark MD Work Phone: [facility] 09-24-2023 10:51-0400 Systolic blood pressure 136 mm[Hg] Joshua Clark MD Work Phone: [facility] 08-26-2023 09:55-0400 Body height 165.[address] [facility] 08-26-2023 09:55-0400 Body mass index (BMI) [Ratio] 35.7 kg/m2 [facility] 08-26-2023 09:55-0400 Body weight 97.[address] [facility] 08-26-2023 09:55-0400 Diastolic blood pressure 67 mm[Hg] [facility] 08-26-2023 09:55-0400 Heart rate 76 /min [facility] 08-26-2023 09:55-0400 Systolic blood pressure 120 mm[Hg] [facility] 07-15-2023 11:19-0400 Body height 165.[address] [facility] 07-15-2023 11:19-0400 Body mass index (BMI) [Ratio] 34.9 kg/m2 [facility] 07-15-2023 11:19-0400 Body weight 95.[address] [facility] 07-15-2023 11:19-0400 Diastolic blood pressure 77 mm[Hg] [facility] 07-15-2023 11:19-0400 Heart rate 83 /min [facility] 07-15-2023 11:19-0400 Systolic blood pressure 128 mm[Hg] [facility] 02-19-2023 11:00-0400 Body height 165.1 cm Ras Mejias Other [employer] Other 02-19-2023 11:00-0400 Body mass index (BMI) [Ratio] 35.77 kg/m2 Ras Mejias Other [employer] Other 02-19-2023 11:00-0400 Body temperature 98.6 [degF] Akiner Magalie Other [employer] Other 02-19-2023 11:00-0400 Body weight 97.52 kg Christpriyaer Magalie Other [employer] Other 02-19-2023 11:00-0400 Diastolic blood pressure 69 mm[Hg] Akiner Magalie Other [employer] Other 02-19-2023 11:00-0400 Respiratory rate 20 /min Ras Mejias Other [employer] Other 02-19-2023 11:00-0400 SaO2% (BldA) [Mass fraction] 94 % Ras Mejias Other [employer] Other 02-19-2023 11:00-0400 Systolic blood pressure 120 mm[Hg] Ras Mejias Other [employer] Other 10-05-2022 10:00-0400 Body height 165.1 cm Luis Alberto Carrasco Other [employer] Other 10-05-2022 10:00-0400 Body mass index (BMI) [Ratio] 34.44 kg/m2 Luis Alberto Carrasco Other [employer] Other 10-05-2022 10:00-0400 Body weight 93.9 kg Luis Alberto Carrasco Other [employer] Other 10-05-2022 10:00-0400 Diastolic blood pressure 76 mm[Hg] Luis Alberto Carrasco Other [employer] Other 10-05-2022 10:00-0400 Systolic blood pressure 149 mm[Hg] Luis Alberto Carrasco Other [employer] Other 07-09-2022 13:15-0500 Body height 165.1 cm Ras Mejias Other [employer] Other 07-09-2022 13:15-0500 Body mass index (BMI) [Ratio] 36.27 kg/m2 Ras Mejias Other [employer] Other 07-09-2022 13:15-0500 Body temperature 97.4 [degF] Ras Hulldano Other [employer] Other 07-09-2022 13:15-0500 Body weight 98.88 kg Akiner Magalie Other [employer] Other 07-09-2022 13:15-0500 Diastolic blood pressure 80 mm[Hg] Akiner Magalie Other [employer] Other 07-09-2022 13:15-0500 Respiratory rate 20 /min Akiner Magalie Other [employer] Other 07-09-2022 13:15-0500 SaO2% (BldA) [Mass fraction] 98 % Akiner Magalie Other [employer] Other 07-09-2022 13:15-0500 Systolic blood pressure 126 mm[Hg] Akiner Magalie Other [employer] Other 09-01-2021 13:58-0400 Body height 157.48 cm Luis Alberto Carrasco Work Phone: [facility] Work Phone: 09-01-2021 13:58-0400 Body mass index (BMI) [Ratio] 37.13 kg/m2 Luis Alberto Carrasco Work Phone: [facility] Work Phone: 09-01-2021 13:58-0400 Body surface area Derived from formula 1.92 m2 Luis Alberto Carrasco Work Phone: [facility] DO Work Phone: 09-01-2021 13:58-0400 Body weight 92.08 kg Luis Alberto Carrasco Work Phone: [facility] DO Work Phone: 09-01-2021 13:58-0400 Diastolic blood pressure 78 mm[Hg] Luis Alberto Carrasco Work Phone: [facility] DO Work Phone: 09-01-2021 13:58-0400 Heart rate 72 /min Luis Alberto Carrasco Work Phone: [facility] DO Work Phone: 09-01-2021 13:58-0400 Systolic blood pressure 124 mm[Hg] Luis Alberto Carrasco Work Phone: [facility] DO Work Phone: 03-21-2021 16:45-0500 Body height 165.1 cm Ras Mejias Other [employer] Other 03-21-2021 16:45-0500 Body mass index (BMI) [Ratio] 35.44 kg/m2 Ras Mejias Other [employer] Other 03-21-2021 16:45-0500 Body temperature 97.9 [degF] Ras Mejias Other [employer] Other 03-21-2021 16:45-0500 Body weight 96.62 kg Ras Mejias Other [employer] Other 03-21-2021 16:45-0500 Diastolic blood pressure 60 mm[Hg] Ras Mejias Other [employer] Other 03-21-2021 16:45-0500 Respiratory rate 20 /min Ras Mejias Other [employer] Other 03-21-2021 16:45-0500 SaO2% (BldA) [Mass fraction] 98 % Ras Mejias Other [employer] Other 03-21-2021 16:45-0500 Systolic blood pressure 112 mm[Hg] Ras Mejias Other [employer] Other 02-20-2021 14:30-0400 Body height 165.1 cm Lam Andrew Other [employer] Other 02-20-2021 14:30-0400 Body mass index (BMI) [Ratio] 35.44 kg/m2 Lam Andrew Other [employer] Other 02-20-2021 14:30-0400 Body weight 96.62 kg Lam Latanya Other [employer] Other Encounters Encounter Date Encounter Type Care Provider Facility Start: 12-24-2023 End: 12-24-2023 ambulatory [facility] Work Phone: Start: 12-24-2023 End: 12-24-2023 Patient encounter procedure [facility] Work Phone: Start: 10-30-2023 End: 10-30-2023 ambulatory SIMONE JEFFRIES Not Available Start: 10-01-2023 End: 10-01-2023 ambulatory MD Luis Alberto Carrasco Work Phone: [facility] Work Phone: Start: 10-01-2023 End: 10-01-2023 Patient encounter procedure MD Luis Alberto Carrasco Work Phone: [facility] Work Phone: Start: 09-25-2023 End: 09-25-2023 ambulatory SIMONE JEFFRIES Not Available Start: 09-24-2023 End: 09-24-2023 ambulatory JOSHUA CLARK [facility] Ambulatory Start: 09-24-2023 End: 09-24-2023 Office outpatient visit 25 minutes Joshua Clark MD Work Phone: [facility] Comment on above: ASCVD (arteriosclero tic cardiovascular disease) (Primary Dx); History of PTCA; Mixed hyperlipidemia; Essential hypertension; S/P CABG (coronary artery bypass graft); BMI 39.0-39.9,adult; Former smoker Start: 09-16-2023 End: 09-16-2023 ambulatory SIMONE JEFFRIES Not Available Start: 08-30-2023 Non-patient / Non-visit MD Nayeli Carrasco Work Phone: [facility] Work Phone: Start: 08-29-2023 End: 08-29-2023 ambulatory Luis Albetro Carrasco Facility:[facility] Start: 08-29-2023 End: 08-29-2023 ambulatory MD Luis Alberto Carrasco Work Phone: [facility] Work Phone: Start: 08-29-2023 End: 08-29-2023 Patient encounter procedure MD Luis Alberto Carrasco Work Phone: [facility] [address] Work Phone: Start: 08-26-2023 End: 08-26-2023 ambulatory [facility] Work Phone: Start: 08-26-2023 End: 08-26-2023 Patient encounter procedure [facility] Work Phone: Start: 08-20-2023 End: 08-20-2023 ambulatory MARYBETH MASON Not Available Start: 08-08-2023 End: 08-08-2023 ambulatory MARYBETH MASON Not Available Start: 07-15-2023 End: 07-15-2023 Patient encounter procedure [facility] Work Phone: Start: 07-12-2023 End: 07-12-2023 ambulatory PETERLOLIS POE Not Available Start: 07-01-2023 End: 07-01-2023 ambulatory SIMONE JEFFRIES CARLOS Not Available Start: 06-28-2023 End: 06-28-2023 ambulatory PETER Granda JET Not Available Start: 06-14-2023 Chart abstracting Simone Nicho Santoyo DO Work Phone: [facility] Start: 06-11-2023 Refill Marybeth Mason NP Work Phone: [facility] Comment on above: Post-op pain (Primar y Dx) Start: 06-05-2023 End: 06-05-2023 ambulatory Luis Alberto Carrasco Other [employer] Other Start: 06-05-2023 Office outpatient vi sit 15 minutes Luis Alberto Carrasco [facility] Start: 05-31-2023 End: 05-31-2023 ambulatory PETER POE Not Available Start: 03-25-2023 End: 03-25-2023 ambulatory SIMONE JEFFRIES CARLOS Not Available Start: 02-19-2023 End: 02-19-2023 ambulatory Ras Mejias Other [employer] Other Start: 02-19-2023 Office outpatient vi sit 25 minutes Ras Mejias [facility] Start: 11-16-2022 Chart abstracting Peter MARR Work Phone: [facility] Start: 11-01-2022 Chart Update Luis Alberto Carrasco Work Phone: [facility] DO Work Phone: Start: 10-31-[address] Joshua Marr [facility] Facility:[id number] Start: 10-26-2022 Telephone encounter Luis Alberto tierney Work Phone: [facility] 250 DO Work Phone: Start: 10-15-2022 End: 10-15-2022 ambulatory Luis Alberto Carrasco Other [employer] Other Start: 10-15-2022 Telephone encounter Luis Alberto Carrasco [facility] Start: 10-05-2022 End: 10-05-2022 ambulatory Luis Alberto Carrasco Other [employer] Other Start: 10-05-2022 Office outpatient vi sit 15 minutes Luis Alberto Carrasco [facility] Start: 09-12-2022 End: 09-12-2022 ambulatory Luis Alberto Carrasco Other [employer] Other Start: 09-12-2022 Telephone encounter Luis Alberto Carrasco [facility] Start: 08-23-2022 End: 08-23-2022 ambulatory Luis Alberto Carrasco Other [employer] Other Start: 08-23-2022 Telephone encounter Luis Alberto Carrasco [facility] Start: 08-22-2022 (Televisit) Televisit Luis Alberto Carrasco [facility] Start: 08-22-2022 End: 08-22-2022 ambulatory Luis Alberto Carrasco Other [employer] Other Start: 07-09-2022 End: 07-09-2022 ambulatory Ras Mejias Other [employer] Other Start: 07-09-2022 Office outpatient vi sit 15 minutes Ras Mejias [facility] Start: 06-05-2022 Rx Renewal [facility] Work Phone: Start: 12-27-2021 End: 12-27-2021 Patient encounter procedure Kristin Giraldo MD Work Phone: Ophthalmology Comment on above: Glaucoma suspect of both eyes (Primary Dx) Start: 11-13-2021 End: 11-13-2021 Patient encounter procedure Kristin Giraldo MD Work Phone: Ophthalmology Comment on above: Glaucoma suspect of both eyes (Primary Dx) Start: 10-09-2021 End: 10-09-2021 Patient encounter procedure Kristin Giraldo MD Work Phone: Ophthalmology Comment on above: Glaucoma suspect of both eyes (Primary Dx); PCO (posterior capsular opacification), bilateral Start: 09-20-2021 End: 09-20-2021 Patient encounter procedure MD Luis Alberto Carrasco Work Phone: [facility] [address] Start: 09-04-2021 End: 09-04-2021 Patient encounter procedure MD Luis Alberto Carrasco Work Phone: [facility] Start: 09-01-2021 Office outpatient vi sit 25 minutes Luis Alberto Carrasco Work Phone: [facility] 250 DO Work Phone: Start: 08-02-2021 Telephone encounter Wang almanzar MD Work Phone: Ophthalmology Comment on above: Appointment Start: 06-19-2021 End: 06-19-2021 Patient encounter procedure MD Luis Alberto Carrasco Work Phone: [facility] [address] Start: 04-26-2021 Rx Renewal Luis Alberto Carrasco Work Phone: [facility] 250 DO Work Phone: Start: 03-21-2021 End: 03-21-2021 ambulatory Ras Mejias Other [facility] [employer] Other Start: 03-21-2021 Office outpatient vi sit 15 minutes Ras Mejias [facility] Start: 03-21-2021 AUDIT Luis Alberto Carrasco Work Phone: [facility] 250 DO Work Phone: Start: 02-28-2021 End: 02-28-2021 Telephone encounter Javier De Santiago MD, PhD Work Phone: Neurology Comment on above: Received Outside [facility] ([facility]) Start: 02-20-2021 Office outpatient ne w 45 minutes Lam Latanya [facility] Start: 01-20-2021 End: 01-21-[address] LUIS ALBERTO CARRASCO Facility:[facility] Start: 11-22-2020 End: 11-22-[address] IOANA CHRISTINA Facility:[facility] Start: 04-05-2020 End: 04-06-[address] LUIS ALBERTO CARRASCO Facility:[facility] Patient encounter status Luis Alberto Carrasco Work Phone: [facility] DO Work Phone: Procedures Date Procedure Procedure Detail Performing Clinician Start: 08-29-2023 Plain X-ray of left wrist MD Luis Alberto Carrasco Work Phone: Start: 04-12-2023 History of coronary artery bypass grafting S/P CABG (coronary artery bypass graft) Joshua Clark MD Work Phone: Start: 04-12-2023 History of percutane ous transluminal coronary angioplasty History of PTCA Joshua Clark MD Work Phone: Start: 12-27-2021 Computerized ophthal terry imaging optic nerve Kristin Giraldo MD Work Phone: Start: 12-27-2021 Visual field xm uni/ bi w/interp extended exam Kristin Giraldo MD Work Phone: Start: 11-13-2021 Visual field xm uni/ bi w/interp extended exam Kristin Giraldo MD Work Phone: Start: 10-09-2021 Computerized ophthal terry imaging optic nerve Kristin Giraldo MD Work Phone: Start: 10-09-2021 End: 10-09-2021 Post-cataract laser surgery Joel Carlos MD Work Phone: Start: 06-19-2021 Plain X-ray of bilat eral shoulders MD Luis Alberto Carrasco Work Phone: Start: 03-06-2021 Adult depression scr eening assessment Wang Kaur MD Work Phone: Start: 11-20-2018 Lipid 1996 panel - S bubba or Plasma Joshua Clark MD Work Phone: Appendectomy Luis Alberto Carrasco Work Phone: Cardiac catheterization Isra Carrasco Work Phone: Colonoscopy Luis Alberto Carrasco Work Phone: Comment on above: [id number]; Coronary artery bypa ss graft Luis Alberto Carrasco Work Phone: Comment on above: [id number]; History of coronary artery bypass grafting S/P CABG (coronary artery bypass graft) Luis Alberto Carrasco Work Phone: Comment on above: [id number]; History of coronary artery bypass grafting Hx of CABG MD Luis Alberto Carrasco Work Phone: History of coronary artery bypass grafting S/P CABG (coronary artery bypass graft) Joshua Clark MD Work Phone: History of percutane ous transluminal coronary angioplasty History of PTCA Luis Alberto Carrasco Work Phone: History of percutane ous transluminal coronary angioplasty History of PTCA Joshua Clark MD Work Phone: Percutaneous translu larissa coronary angioplasty Luis Alberto Carrasco Work Phone: Plan of Treatment Date Care Activity Detail Author Start: 09-22-2024 End: 09-22-2024 Patient encounter procedure 09/22/2024 2:10 PM EDT Office Visit [facility] [address] [place] [address] Joshua Dill, [address] [place] [address] [facility] Start: 01-05-2024 Influenza vaccination Influenza Vaccine (Season Ended) [facility] Start: 11-21-2023 Lipid panel Lipid Panel [facility] Start: 06-28-2023 End: 06-28-2023 Patient encounter procedure 06/28/2023 9:00 AM EST Office Visit [facility] [address] [place] [address] Peter Poe PA [address] [place] [address] [facility] Start: 06-14-2023 End: 06-14-2023 Patient encounter procedure 06/14/2023 11:30 AM EST Procedure Visit [facility]. Simone Santoyo, [address] [place] [address] [facility] Start: 04-17-2023 FUV, Provider: Joshua Clark, Status: Pen, Time: 3:30 PM FUV, Provider: Joshua Clark, Status: Pen, Time: 3:30 PM -[facility] DO Work Phone: Start: 01-04-2023 COVID-19 Vaccine ( season) COVID-19 Vaccine ( season) [facility] Start: 10-31-2022 STRESS NUC, Provider: MICHELLE HHVI NUCLEAR 01,[id number], Status: Pen, Time: 12:30 PM STRESS NUC, Provider: MICHELLE HHVI NUCLEAR 01,[id number], Status: Pen, Time: 12:30 PM [facility] DO Work Phone: Start: 08-03-2022 FUV, Provider: Joshua Clark, Status: Pen, Time: 1:40 PM FUV, Provider: Joshua Clark, Status: Pen, Time: 1:40 PM [facility] 250 DO Work Phone: Start: 05-11-2022 FUV, Provider: Joshua Clark, Status: Pen, Time: 2:10 PM FUV, Provider: Joshua Clark, Status: Pen, Time: 2:10 PM -[facility] DO Work Phone: Start: 03-06-2022 Adult depression screening assessment DEPRESSION SCREENING [facility] Start: 01-04-2022 Influenza vaccination [facility] Start: 06-19-2021 FUV, Provider: Joshua Clark, Status: Pen, Time: 8:00 AM FUV, Provider: Joshua Clark, Status: Pen, Time: 8:00 AM -[facility] 250 DO Work Phone: Start: 06-07-2021 FUV, Provider: Joshua Clark, Status: Pen, Time: 2:30 PM FUV, Provider: Joshua Clark, Status: Pen, Time: 2:30 PM -[facility] DO Work Phone: Start: 05-06-2021 ADVANCE DIRECTIVE DISCUSSION ADVANCE DIRECTIVE DISCUSSION [facility] Start: 01-04-2021 Influenza vaccination INFLUENZA (#1) [facility] Start: 12-30-2016 Abdominal aortic aneurysm screening Abdominal Aortic Aneurysm (AAA) Screening [facility] Start: 12-30-2016 ADVANCE DIRECTIVE DISCUSSION ADVANCE DIRECTIVE DISCUSSION [facility] Start: 12-30-2016 PNEUMOCOCCAL: 65+ (1 - PCV) PNEUMOCOCCAL: 65+ (1 - PCV) [facility] Start: 12-30-2016 PNEUMOVAX AGE 65 AND OVER WITH 5YR LOOKBACK (#1) PNEUMOVAX AGE 65 AND OVER WITH 5YR LOOKBACK (#1) [facility] Start: 2011 RSV patients and/or patients aged 60+ years (1 - 1-dose 60+ series) RSV patients and/or patients aged 60+ years (1 - 1-dose 60+ series) [facility] Start: 12-30-2001 SHINGRIX VACCINE (1 of 2) SHINGRIX VACCINE (1 of 2) [facility] Start: 12-30-2001 Zoster Vaccines (1 of 2) Zoster Vaccines (1 of 2) [facility] Start: 12-30-1996 COLOGUARD (FIT-DNA) COLOGUARD (FIT-DNA) [facility] Start: 12-30-1996 Colonoscopy COLONOSCOPY [facility] Start: 12-30-1996 COLORECTAL CANCER SCREENING COLORECTAL CANCER SCREENING [facility] Start: 12-30-[address] COLONOGRAPHY [facility] Start: 12-30-1996 DIABETES SCREEN DIABETES SCREEN [facility] Start: 12-30-1996 FECAL OCCULT BLOOD FECAL OCCULT BLOOD [facility] Start: 12-30-1996 SIGMOIDOSCOPY SIGMOIDOSCOPY [facility] Start: 12-30-1986 LIPID SCREEN LIPID SCREEN [facility] Start: 12-30-1973 DTaP/Tdap/Td Vaccines (1 - Tdap) DTaP/Tdap/Td Vaccines (1 - Tdap) [facility] Start: 12-30-1970 Urine microalbumin profile DTAP,TDAP,TD (1 - Tdap) [facility] Start: 12-30-1969 Diabetes mellitus screening Diabetes Screening [facility] Start: 12-30-1969 HEPATITIS C SCREENING HEPATITIS C SCREENING [facility] Start: 12-30-1969 Hepatitis C screening Hepatitis C Screening [facility] Start: 1963 Adult depression screening assessment DEPRESSION SCREENING [facility] Start: 1963 COVID-19 VACCINE (1) COVID-19 VACCINE (1) [facility] Start: 12-30-1956 COVID-19 VACCINE (#1) COVID-19 VACCINE (#1) [facility] Start: 12-30-1956 COVID-19 VACCINE (1) COVID-19 VACCINE (1) [facility] Start: 07-02-1952 COVID-19 VACCINE (#1) COVID-19 VACCINE (#1) [facility] Start: 1950 ABDOMINAL AORTIC ANEURYSM SCREENING ABDOMINAL AORTIC ANEURYSM SCREENING [facility] Start: 1950 Medicare Annual Wellness Visit Medicare Annual Wellness Visit (AWV) [facility] Start: 1950 Screening for malignant neoplasm of colon [facility] Comprehensive metabo lic 1999 panel - Serum or Plasma [facility] Comprehensive metabo lic 1999 panel - Serum or Plasma [facility] Glucose measurement estimated from glycated hemoglobin [facility] Work Phone: Hemoglobin A1c/Hemoglobin.total in Blood [facility] Work Phone: Microalbumin [Mass/volume] in Urine [facility] XR Wrist - left GE 3 Views [facility] Immunizations Immunization Date Immunization Notes Care Provider Joanne koenigallie 02-18-2022 influenza virus vaccine, unspecified formulation Joshua Clark MD Work Phone: [facility] Work Phone: 02-18-2022 influenza, high dose seasonal, preservative-free Luis Alberto E Carrasco Work [facility] Work Phone: Comment on above: Series: 02-13-2022 influenza virus vaccine, split virus (incl. purified surface antigen) Ras Mejias Other [employer] Other 02-13-2022 influenza virus vaccine, unspecified formulation [facility] 05-06-2017 pneumococcal polysaccharide vaccine, 23 valent Luis Alberto E Carrasco Work Phone: [facility] 250 DO Work Phone: 01-22-2017 pneumococcal conjuga te vaccine, 13 valent Luis Alberto E Carrasco Work Phone: [facility] 250 DO Work Phone: 02-11-2015 influenza virus vaccine, unspecified formulation Luis Alberto E Carrasco Work Phone: [facility] 250 DO Work Phone: 02-03-2015 seasonal influenza, intradermal, preservative free Luis Alberto E Carrasco Work Phone: [facility] 250 DO Work Phone: 04-27-2014 influenza, injectabl e, quadrivalent, contains preservative Luis Alberto E Carrasco Work Phone: [facility] 250 DO Work Phone: 03-16-2014 influenza virus vaccine, unspecified formulation Luis Alberto Espinoza Carrasco Work Phone: [facility] 250 DO Work Phone: 02-03-2013 influenza virus vaccine, unspecified formulation Luis Alberto E Carrasco Work Phone: [facility] 250 DO Work Phone: 02-03-2013 influenza virus vaccine, whole virus Luis Alberto Espinoza Carrasco Work Phone: [facility] 250 DO Work Phone: 02-03-2013 influenza, seasonal, injectable Jr. Stepanic DO Work Phone: [facility] 02-09-2009 influenza virus vaccine, whole virus Luis Alberto Carrasco Work Phone: [facility] 250 DO Work Phone: 02-04-2008 pneumococcal polysaccharide vaccine, 23 valent Luis Alberto Espinoza Carrasco Work Phone: [facility] 250 DO Work Phone: 02-02-2005 pneumococcal polysaccharide vaccine, 23 valent Luis Alberto E Carrasco Work Phone: [facility] 250 DO Work Phone: influenza virus vaccine, unspecified formulation Luis Alberto Carrasco Work Phone: [facility] 250 DO Work Phone: Comment on above: 2011 2009 2007 Payers Date Payer Category Payer Unknown 2022 Unknown [id number] 2021 Medicare DEVOTED MEDICARE [facility] [id number] 2021-Present [phone] [address] AILYN FREITAS [address] [facility] [id number] 2021 Medicare [id number] 2020 Unknown MMO MMO MEDICARE SUPPLEMENT [id number] 2020-Present Indemnity [id number] 2006 Medicare MEDICARE MEDICAR E A AND B [id number] 2006-Present [place] [id number] 1959 Medicare [id number] 1959 Unknown [id number] 1951 Unknown [id number] 1951 Unknown [id number] [id number] 1951 Unknown [id number] [id number] 1951 Unknown [id number] [id number] 1951 Unknown [id number] [id number] 1951 Unknown [id number] [id number] 1951 Unknown [id number] [id number] 1951 Unknown [id number] [id number] 1951 Unknown [id number] [id number] 1951 Unknown [id number] [id number] 1951 Unknown [id number] [id number] 1951 Unknown [id number] [id number] 1951 Unknown [id number] [id number] 1951 Unknown [id number] [id number] 1951 Unknown [id number] [id number] Self-pay Self Pay [id number] Unknown [id number] Unknown [id number] Unknown [id number] Social History Date Type Detail Facility Tobacco smoking status [facility] Unknown if ever smoked [employer] Other Start: 1950 Sex Assigned At Not on file [facility] Start: 03-31-2021 End: 10-01-2023 Tobacco smoking status LAIS Ex-smoker [facility] Start: 04-09-2020 End: 05-06-2008 History of tobacco use Current smoker [facility] Start: 03-31-2021 End: 09-24-2023 Tobacco use and exposure Smokeless tobacco non-user [facility] Start: 03-31-2021 End: 09-24-2023 Alcohol intake Current drinker of alcohol (finding) [facility] Start: 03-06-2021 End: 04-12-2023 History SDOH Alcohol Comment occasionally [facility] Start: 03-25-2023 End: 09-24-2023 No illicit drug use No illicit drug use [place] [address] DO Work Phone: Comment on above: 1-2 cups of coffee d aily; occasionally; quit 2008; Start: 1950 Sex Assigned At Male [facility] Start: 03-25-2023 End: 09-24-2023 Sex Assigned At [facility] [employer] Other End: 05-06-2008 History of tobacco use Cigarette Smoker [facility] Start: 06-16-2023 Tobacco Comment Quit smoking > 10 years ago. [facility] Start: 09-14-2023 End: 09-24-2023 Exposure to SARS-CoV-2 (event) Not sure [facility] Clinical Notes 01-20-2021 to 09-24-2023 Joshua Clark MD - 09/24/2023 10:50 AM EDTPatient InstructionsTelephone Encounter - Marybeth Mason NP - 06/11/2023 8:47 AM ESTTelephone Encounter - Marybeth Mason NP - 06/11/2023 8:47 AM EST Note Date & Type Note Facility 09-24-2023 History of Presen t illness Narrative Subjective patient returns follow-up. Víctor Nichols Sr. is a 72 y.o. male Chief Complaint Follow-up HPI Review of Systems All other systems reviewed and are negative. Patient returns in follow-up of problems as noted. He is doing well. He denies any of the anginal symptomatology that preceded his original diagnosis and subsequent intervention with bypass and/or PTCA. Because of this we believe CAD to be stable. Review of treatment for lipids and hypertension demonstrates adequate control without complaint side effects and he is achieved his target. Because of this we suggest no change. As before we did advocate the merits of diet and weight loss. He understands and agrees. He states he is relatively active without symptoms. Vitals: 09/24/23 1051 BP: 136/88 BP Location: Right arm Patient Position: Sitting Pulse: 68 Weight: 98.9 kg (218 lb) Height: 1.588 m (5' 2.5 ) Objective Physical Exam Constitutional: Appearance: Normal appearance. HENT: Nose: Nose normal. Neck: Vascular: No carotid bruit. Cardiovascular: Rate and Rhythm: Normal rate. Pulses: Normal pulses. Heart sounds: Normal heart sounds. Pulmonary: Effort: Pulmonary effort is normal. Abdominal: General: Bowel sounds are normal. Palpations: Abdomen is soft. Musculoskeletal: General: Normal range of motion. Cervical back: Normal range of motion. Right lower leg: No edema. Left lower leg: No edema. Skin: General: Skin is warm and dry. Neurological: General: No focal deficit present. Mental Status: He is alert. Psychiatric: Mood and Affect: Mood normal. Behavior: Behavior normal. Thought Content: Thought content normal. Judgment: Judgment normal. Allergies Morphine, Ranolazine, Shupkeq-duo-ryi reductase inhibitors, and Fentanyl Current Medications Current Outpatient Medications: albuterol 2.5 mg /3 mL (0.083 %) nebulizer solution, Take 3 mL (2.5 mg) by nebulization every 4 hours if needed., Disp: , Rfl: aspirin 81 mg EC tablet, Take 1 tablet (81 mg) by mouth once daily., Disp: , Rfl: bimatoprost (Lumigan) 0.03 % ophthalmic solution, Administer 1 drop into affected eye(s) once daily at bedtime., Disp: , Rfl: diazePAM (Valium) 2 mg tablet, Take 1 tablet (2 mg) by mouth 2 times a day as needed., Disp: , Rfl: nitroglycerin (Nitrostat) 0.4 mg SL tablet, Place under the tongue., Disp: , Rfl: omeprazole (PriLOSEC) [address] capsule, Take 1 capsule (20 mg) by mouth once daily., Disp: , Rfl: Spiriva Respimat 2.5 mcg/actuation inhaler, 2 puffs once daily., Disp: , Rfl: atorvastatin (Lipitor) 40 mg tablet, Take 1 tablet (40 mg) by mouth once daily at bedtime., Disp: 90 tablet, Rfl: 3 clopidogrel (Plavix) 75 mg tablet, Take 1 tablet (75 mg) by mouth once daily., Disp: 90 tablet, Rfl: 3 isosorbide mononitrate ER (Imdur) 120 mg 24 hr tablet, Take 1 tablet (120 mg) by mouth once daily., Disp: 90 tablet, Rfl: 3 lisinopriL-hydrochlorothiazide 10-12.5 mg tablet, Take 1 tablet by mouth once daily., Disp: 90 tablet, Rfl: 3 metoprolol succinate XL (Toprol-XL) 25 mg 24 hr tablet, Take 1 tablet (25 mg) by mouth once daily., Disp: 90 tablet, Rfl: 3 spironolactone (Aldactone) 25 mg tablet, Take 1 tablet (25 mg) by mouth once daily., Disp: 90 tablet, Rfl: 3 1. ASCVD (arteriosclerotic cardiovascular disease) Patient remembers symptoms that preceded diagnosis and he denies any such symptoms. Because of this we believe he is stable. - Follow Up In Cardiology; Future - clopidogrel (Plavix) 75 mg tablet; Take 1 tablet (75 mg) by mouth once daily. Dispense: 90 tablet; Refill: 3 - isosorbide mononitrate ER (Imdur) 120 mg 24 hr tablet; Take 1 tablet (120 mg) by mouth once daily. Dispense: 90 tablet; Refill: 3 - lisinopriL-hydrochlorothiazide 10-12.5 mg tablet; Take 1 tablet by mouth once daily. Dispense: 90 tablet; Refill: 3 2. History of PTCA A durable result has been achieved with no recurrence of symptoms. - clopidogrel (Plavix) 75 mg tablet; Take 1 tablet (75 mg) by mouth once daily. Dispense: 90 tablet; Refill: 3 3. Mixed hyperlipidemia Review of treatment strategy demonstrates good control - atorvastatin (Lipitor) 40 mg tablet; Take 1 tablet (40 mg) by mouth once daily at bedtime. Dispense: 90 tablet; Refill: 3 4. Essential hypertension Review of treatment strategy demonstrates good control - isosorbide mononitrate ER (Imdur) 120 mg 24 hr tablet; Take 1 tablet (120 mg) by mouth once daily. Dispense: 90 tablet; Refill: 3 - lisinopriL-hydrochlorothiazide 10-12.5 mg tablet; Take 1 tablet by mouth once daily. Dispense: 90 tablet; Refill: 3 - metoprolol succinate XL (Toprol-XL) 25 mg 24 hr tablet; Take 1 tablet (25 mg) by mouth once daily. Dispense: 90 tablet; Refill: 3 - spironolactone (Aldactone) 25 mg tablet; Take 1 tablet (25 mg) by mouth once daily. Dispense: 90 tablet; Refill: 3 5. S/P CABG (coronary artery bypass graft) A durable result has been achieved. 6. BMI 39.0-39.9,adult BMI discussed and weight loss advocated 7. Former smoker Congratulated on cessation Scribe Attestation By signing my name below, I, Bree Elizabet CHILD attest that this documentation has been prepared under the direction and in the presence of Joshua Clark MD. Provider Attestation - Scribe documentation All medical record entries made by the Scribe were at my direction and personally dictated by me. I have reviewed the chart and agree that the record accurately reflects my personal performance of the history, physical exam, discussion and plan. documented in this encounter [facility] Work Phone: 09-24-2023 Instructions Keshia Mckeon LPN - 09/24/2023 10:50 AM EDT Please bring all medicines, vitamins, and herbal supplements with you when you come to the office. Prescriptions will not be filled unless you are compliant with your follow up appointments or have a follow up appointment scheduled as per instruction of your physician. Refills should be requested at the time of your visit. Fall Prevention Education Given documented in this encounter [facility] Work Phone: 06-11-2023 Telephone encounter Note Post op pain rx. PDMP reviewed. [facility] 06-11-2023 Miscellaneous Notes Post op pain rx. PDMP reviewed. documented in this encounter [facility] 06-05-2023 Evaluation note Encounter Date Diagnosis Assessment Notes May, Acute non-recurrent maxillary sinusitis (ICD-10 - J01.00) Reviewed allergies and medications. ER if dyspnea worsens. Ask pharmacist which OTC would be best, jose armando w his cardiac meds. Víctor expresses understanding. [employer] Other 10-17-2023 Evaluation note* Encounter Date Diagnosis Assessment Notes Treatment Notes Treatment Clinical Notes Feb, Asthma, mild intermittent (ICD-10 - J45.20) [facility] Other 06-02-2023 Evaluation note* Encounter Date Diagnosis Assessment Notes Treatment Notes Treatment Clinical Notes Oct, Acute pain of left knee (ICD-10 - M25.562) Pt states he has not had an xray. Suspect this is why he is waiting on the MRI. Will check MRI at [facility] in [place]. Oct, Leg edema, left (ICD-10 - R60.0) Will recheck DVT US for reassurance as it has been more than a week and pt states edema and pain have increased. Pt will call [facility] in [place] for appt - JOSE RAUL Oct, Right ear impacted cerumen (ICD-10 - H61.21) [employer] [facility] Other 04-19-2023 Evaluation note* Encounter Date Diagnosis Assessment Notes Treatment Notes Treatment Clinical Notes Aug, Bronchitis (ICD-10 - J40) Discussed diagnosis with patient. Patient to start Zithromax. Patient to take Zithromax daily with food as prescribed. Finish entire course of antibiotic. Has proair inhaler. Zlaz-mdw-alrqost antipyretics as needed. Warning signs and symptoms reviewed with patient today. Patient to go immediately to the ER should she experience any of these. Patient to notify office should her symptoms persist and not improve. Patient verbalizes understanding and agrees to treatment plan. [employer] Other 03-06-2023 Evaluation note* Encounter Date Diagnosis Assessment Notes Treatment Notes Treatment Clinical Notes Jul, Dyspnea on exertion (ICD-10 - R06.09) [employer] Other 08-24-2022 NoteHNO ID: [id number] Author: Kristin Giraldo MD Service: ? Author Type: Physician Type: Progress Notes Filed: 2021 9:12 PM Note Text: Tmax unknown, unknown Pachy need, need Past Ocular Surgical/Laser History OD: CEIOL, YAG OS: CEIOL, YAG Medication Intolerance/Inefficacy/Barriers - Lumigan, not effective Current Medications Lumigan qHS OU (restart ~07/2021) HVF - OD: -inferior arcuate OS: -inferior arcuate OCT RNFL/GCA OD sup and inferior loss OS sup loss GCA OD: IT thinning OS: mild diffuse thin Primary open angle glaucoma (POAG) - Use Latanoprost QHS BOTH EYES Rule out SSONH Follow up 4-5 months Kristin LAU MD, have confirmed and edited as necessary the relevant ophthalmic history, ROS, and the neuro exam findings as obtained by others. I have seen and examined Víctor Nichols Sr.. I have discussed the case and the management of this patient's care with the Resident/Fellow, if applicable. I also have reviewed and agree with the assessment and plan as stated above and agree with all of its relevant components. Kristin Giraldo MD December 27[facility] History of Present illness Narrative* Kristin Giraldo MD - 12/27/2021 11:30 AM EDT Tmax unknown, unknown Pachy need, need Past Ocular Surgical/Laser History OD: CEIOL, YAG OS: CEIOL, YAG Medication Intolerance/Inefficacy/Barriers - Lumigan, not effective Current Medications Lumigan qHS OU (restart ~07/2021) HVF - OD: -inferior arcuate OS: -inferior arcuate OCT RNFL/GCA OD sup and inferior loss OS sup loss GCA OD: IT thinning OS: mild diffuse thin Primary open angle glaucoma (POAG) - Use Latanoprost QHS BOTH EYES Rule out SSONH Follow up 4-5 months Kristin LAU MD, have confirmed and edited as necessary the relevant ophthalmic history, ROS, and the neuro exam findings as obtained by others. I have seen and examined Víctor Nichols Sr.. I have discussed the case and the management of this patient's care with the Resident/Fellow, if applicable. I also have reviewed and agree with the assessment and plan as stated above and agree withall of its relevant components. Kristin Giraldo MD December 27, 2021 [facility] NoteHNO ID: [id number] Author: Kristin Giraldo MD Service: ? Author Type: Physician Type: Progress Notes Filed: 11/14/2021 10:17 PM Note Text: Tmax unknown, unknown Pachy need, need Past Ocular Surgical/Laser History OD: CEIOL, YAG OS: CEIOL, YAG Medication Intolerance/Inefficacy/Barriers - Lumigan, not effective Current Medications Lumigan qHS OU (restart ~07/2021) HVF - OD: - OS: - OCT RNFL/GCA OD OS GCA OD: IT thinning OS: mild diffuse thin Primary open angle glaucoma (POAG) - Switch Lumigant to Latanoprost QHS RIGHT EYE ONLY Follow up 4-6 weeks VATA/HVF 24-2 FAST (repeat) and OCT I, Kristin Giraldo MD, have confirmed and edited as necessary the relevant ophthalmic history, ROS, and the neuro exam findings as obtained by others. I have seen and examined Víctor Nichols Sr.. I have discussed the case and the management of this patient's care with the Resident/Fellow, if applicable. I also have reviewed and agree with the assessment and plan as stated above and agree with all of its relevant components. Kristin Giraldo MD November 13[facility] History of Present illness Narrative* Kristin Giraldo MD - 11/13/2021 11:36 AM EDT Tmax unknown, unknown Pachy need, need Past Ocular Surgical/Laser History OD: CEIOL, YAG OS: CEIOL, YAG Medication Intolerance/Inefficacy/Barriers - Lumigan, not effective Current Medications Lumigan qHS OU (restart ~07/2021) HVF - OD: - OS: - OCT RNFL/GCA OD OS GCA OD: IT thinning OS: mild diffuse thin Primary open angle glaucoma (POAG) - Switch Lumigant to Latanoprost QHS RIGHT EYE ONLY Follow up 4-6 weeks VATA/HVF 24-2 FAST (repeat) and OCT I, Kristin Giraldo MD, have confirmed and edited as necessary the relevant ophthalmic history, ROS, and the neuro exam findings as obtained by others. I have seen and examined Víctor Simone Sr.. I have discussed the case and the management of this patient's care with the Resident/Fellow, if applicable. I also have reviewed and agree with the assessment and plan as stated above and agree withall of its relevant components. Kristin Giraldo MD November 13, 2021 [facility] NoteHNO ID: [id number] Author: Kristin Giraldo MD Service: ? Author Type: Physician Type: Progress Notes Filed: 10/09/2021 1:13 PM Note Text: Tmax unknown, unknown Pachy need, need Past Ocular Surgical/Laser History OD: CEIOL OS: CEIOL Medication Intolerance/Inefficacy/Barriers - Current Medications Lumigan qHS OU (restart ~07/2021) HVF - OD: - OS: - OCT RNFL/GCA OD OS GCA OD: IT thinning OS: mild diffuse thin Posterior capsular opacity (PCO) both eyes - YAG both eyes today Follow up 3-4 weeks VATA/HVF Kristin Alfaro MD, have confirmed and edited as necessary the relevant ophthalmic history, ROS, and the neuro exam findings as obtained by others. I have seen and examined Víctor Nichols Sr.. I have discussed the case and the management of this patient's care with the Resident/Fellow, if applicable. I also have reviewed and agree with the assessment and plan as stated above and agree with all of its relevant components. Kristin Giraldo MD October 09[facility] History of Present illness Narrative* Kristin Giraldo MD - 10/09/2021 11:16 AM EDT Tmax unknown, unknown Pachy need, need Past Ocular Surgical/Laser History OD: CEIOL OS: CEIOL Medication Intolerance/Inefficacy/Barriers - Current Medications Lumigan qHS OU (restart ~07/2021) HVF - OD: - OS: - OCT RNFL/GCA OD OS GCA OD: IT thinning OS: mild diffuse thin Posterior capsular opacity (PCO) both eyes - YAG both eyes today Follow up 3-4 weeks VATA/HVF Kristin Alfaro MD, have confirmed and edited as necessary the relevant ophthalmic history, ROS, and the neuro exam findings as obtained by others. I have seen and examined Víctor Nichols . I have discussed the case and the management of this patient's care with the Resident/Fellow, if applicable. I also have reviewed and agree with the assessment and plan as stated above and agree withall of its relevant components. Kristin Giraldo MD October 09, 2021 documented in this encounter[facility] Center03-30-2022 Miscellaneous Notes* Telephone Encounter - Shaq Apodaca Patient Automatic Screwmaker - 08/02/2021 3:12 PM EDT Patient has been scheduled * Telephone Encounter - Adiel Lu - 08/02/2021 2:[address] Reese's is referring patient to Dr. Rodrigues for a Yag and SLT Laser. Spoke to patient, he needs to speak with his daughter for his transportation and he will call back. Informed him days Dr. Lopez in [place]. documented in this encounterFairfield Medical Center01-05-2022 NoteHNO ID: [id number] Author: Brisa Mari MD Service: ? Author Type: Physician Type: Progress Notes Filed: 05/10/2021 9:34 AM Note Text: Patient did not show to [facility]. Brisa Mari, [facility]11-26-2021 NoteHNO ID: [id number] Author: Javier De Santiago MD, PhD Service: ? 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 He has also started exercise and weightloss program as discussed last time CT head reviewed indicating:RESULT: ? Funeral Sales Manager (topogram) images: No significant findings. ? Post-operative change: None. ? Acute change: No evidence of an acute infarct or other acute parenchymal process. ? Hemorrhage: No evidence of acute intracranial hemorrhage. ECASS hemorrhagic transformation score: Not Applicable ? Mass Lesion / Mass Effect: There is no evidence of an intracranial mass or extraaxial fluid collection. No significant mass effect. ? Chronic change: Scattered patchy foci of low attenuation are present within supratentorial white matter which is a nonspecific finding but likely represents mild microvascular ischemia. ? Parenchyma: There is mild generalized volume loss.? Ventricles: The ventricles are within normal limits of size and configuration for age. ? Paranasal sinuses and skull base: The visualized paranasal sinuses are grossly clear. The skull base and imaged soft tissues are unremarkable. ? ? IMPRESSION: No acute intracranial process. BP 154/70 Pulse 81 Ht 5' 2 (1.58m) Wt 214 lb (97.1kg) BMI 39.13 kg/(m2). Exam: he has much decreased involuntary movements in his neck and arm, is noted to have hand and finger movements that he can stop any any times. No change in his pain exam, power, and gait. Impression: as above with some improvement in his movement Suggest: Discussed his care in detail To continue current measures if therapy with F/U in 3-4 months, or earlier with new symptoms. Javier De Santiago MD, PhD VT: [address] [facility]11-26-2021 NoteHNO ID: [id number] Author: RT Rober(R) Service: Radiology Author Type: Technologist Type: Progress Notes Filed: 03/31/2021 7:46 AM Note Text: Radiology Service Progress Note PATIENT NAME: Víctor Nichols Sr. DATE OF SERVICE: March 31, 2021 TIME: 7:46 AM PATIENT IDENTITY VERIFICATION COMPLETED USING TWO (2) IDENTIFIERS: Name and Date of confirmed by patient verbally and Name and Date of confirmed by identification band. FALL SCREENING: Has the patient had 2 falls in the last year or 1 fall with injury or currently using an Ambulatory Assistive Device (Walker, Cane, Wheelchair, Crutches, etc.)? No PATIENT GENDER DATA: Male PATIENT RELEVANT IMPLANT DATA REVIEWED: Yes RADIOLOGY DEPARTMENT: CT; Exam(s) Completed: Brain PERIPHERAL IV DATA: Not applicable SIGNED BY: RT Rober(R) March 31, 2021 7:[address] [facility]11-01-2021 NoteHNO ID: [id number] Author: RT Michelle(R) Service: Radiology Author Type: Technologist Type: Progress Notes Filed: 03/06/2021 11:18 AM Note Text: Radiology Service Progress Note PATIENT NAME: Víctor Nichols Sr. DATE OF SERVICE: March 06, 2021 TIME: 11:17 AM PATIENT IDENTITY VERIFICATION COMPLETED USING TWO (2) IDENTIFIERS: Name and Date of confirmed by patient verbally. FALL SCREENING: Has the patient had 2 falls in the last year or 1 fall with injury or currently using an Ambulatory Assistive Device (Walker, Cane, Wheelchair, Crutches, etc.)? No PATIENT GENDER DATA: Male PATIENT RELEVANT IMPLANT DATA REVIEWED: Not Applicable RADIOLOGY DEPARTMENT: General X-ray: Exam(s) Completed: Spine X-Ray(s): Cervical flex/ext and Lumbar AP / LAT / FLEX/EXT Pelvis X-Ray: Pelvis judet views PERIPHERAL IV DATA: Not applicable SIGNED BY: RT Michelle(R) March 06, 2021 11:[address] [facility]11-01-2021 NoteHNO ID: [id number] Author: Ronald Castro MD Service: ? Author Type: Physician Type: Progress Notes Filed: 03/06/2021 3:00 PM Note Text: [facility] - NEW PATIENT EVALUATION Javier De Santiago [address] [facility] [address] De Santiago: Thank you for refering Mr. Nichols to our clinic today. As you know he is a 70 year old right-handed male who is seen in consultation for evaluation of since . He is seen . Subjective HISTORY OF PRESENT ILLNESS: Initial HPI Patient complains of abnormal movements. Started around 3-4 years or more ago. Onset was gradual and has been getting worse with time. Was a few times days but is now constant. Only goes away when asleep. Gets worse when moving his neck a lot. In addition, the following areas that may be affected by abnormal involuntary movements were evaluated: Daily activities Difficulties with eatin (none) Difficulties in dressin (none) Difficulties with hygiene activities: Yes (slight) Difficulties with handwriting: Yes (mild) Difficulties with doing hobbies and other activities: Yes (moderate) Difficulties turning in bed: Yes (slight) Difficulties getting out of bed, car or chair: Yes (moderate) Tremors/Gait/Balance Shaking or tremors: Yes (mild) Walking and balance problems: Yes (moderate): Leg gives out. Dizziness Number of falls in the Last Month: 3 Gait freezing: Yes (slight) Autonomic/Pain Lightheadeness on standing: Yes (moderate): Urinary problems: Yes (slight) Constipation problems: Yes (slight) Pain and other sensations: Yes (moderate): Speech/Swallowing Speech problems: 0 (none) Drooling: Yes (mild) Chewing and swallowing problems: 0 (none) Sleep/Fatigue Sleep problems: Yes (severe): Daytime sleepiness: Yes (mild) Fatigue: Yes (severe) REM sleep behavior disorder: Restless Legs Syndrome: Impaired sense of smell: Yes: had problems during Covid 19 but improving Mood/Behavior Depression: PQH-9 = 18 usually representing moderately severe (15-19) depression. Anxiety: LEANDRA-7 = 7 usually representing mild (5-9) anxiety. Finally, the following table shows the patient's overall global physical and mental health using the PROMIS scale: PROMIS-10 Office Visit from 03/06/2021 in Neurological [facility] Global Physical Health T Score 32.4 Global Mental Health T Score 56 0-10 Standard Pain Scale 2 *PROMIS-10 scoring scale: mean = 50, over 50 is above average, under 50 is below average Review of Systems Constitutional: Negative. HENT: Negative. Eyes: Negative. 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 Cardiovascular: Negative. Gastrointestinal: Positive for abdominal pain. Genitourinary: Positive for difficulty urinating. Hematologic/Lymphatic: Negative. Allergic/Immunologic: Negative. Musculoskeletal: Positive for arthralgias, back pain, myalgias, muscle weakness, neck pain and neck stiffness. Skin: Negative. ALLERGIES Allergen Reactions - Fentanyl Itching - Morphine Itching Current Outpatient Medications Medication Sig - albuterol (PROVENTIL) 2.5 mg /3 mL (0.083 %) nebulizer solution Albuterol Sulfate Active 2.5 MG Inhalation Q4H November 14, 2017 10:03am - aspirin, enteric coated (ASPIRIN, ENTERIC COATED) 81 mg EC tablet Take 81 mg by mouth. - atenolol (TENORMIN) 25 mg tablet Take 25 mg by mouth. - atorvastatin (LIPITOR) 40 mg tablet Atorvastatin Active 40 MG Oral Every evening October 28, 2019 9:10am - Benzonatate 200 mg capsule Benzonatate Active 200 MG Oral Three times daily April 09, 2020 3:41pm - bimatoprost (LUMIGAN) 0.01 % drop ophthalmic drops Bimatoprost Active 1 DROPS Ophthalmic Every evening November 14, 2017 10:03am - clopidogrel (PLAVIX) 75 mg tablet Take 75 mg by mouth. - isosorbide mononitrate ER (IMDUR) 60 mg 24 hr tablet Isosorbide Mononitrate Active 60 MG Oral Daily October 27, 2017 9:26pm - omeprazole (PRILOSEC) 20 mg capsule Omeprazole Active 20 MG Oral Daily November 14, 2017 10:03am - lisinopril-hydroCHLOROthiazide (PRINZIDE,ZESTORETIC) 10-12.5 mg per tablet Take 1 tablet by mouth once daily. - spironolactone (ALDACTONE) 25 mg tablet Spironolactone Active 25 MG Oral Daily October 25, 2019 6:35am - metoprolol succinate ER (TOPROL XL) 25 mg 24 hr tablet Metoprolol Succinate Active 25 MG Oral Daily October 28, 2019 9:41am - nitroglycerin sublingual (NITROQUICK) 0.4 mg SL tablet Dissolve 0.4 mg under the tongue at bedtime as needed. - diazePAM (VALIUM) 5 mg tablet Take 5 mg by mouth every 6 hours as needed. - traMADol (ULTRAM) 50 mg tablet Take 50 mg by mouth every 6 hours as needed for pain. No current facility-administered medications for this visit. Past Medical and Surgical History: CAD s/p CABG, CT x 2, HTN, CTS s/p surgery, neck pain s/p surgery Social History Tobacco Use - Smoking status: Never Smoker - Smokeless tobacco: Never Used Substance Us (more content not included)...[facility]11-01-2021 NoteHNO ID: [id number] Author: Vasile El Service: ? Author Type: ? Type: Progress Notes Filed: 03/06/2021 3:00 PM Note Text: Intake information documented in the prior visit with Dr. Javier De Santiago today.[facility]10-26-2021 Miscellaneous Notes* Telephone Encounter - Rey Farrell - 02/28/2021 2:08 PM EDT Medical records received and scanned in documented in this encounterFairfield [facility] Center10-18-2021 Evaluation note* Encounter Date Diagnosis Assessment Notes Treatment Notes Treatment Clinical Notes Feb, Acute pain of left hip (ICD-10 - M25.552) Víctor is a new patient to me who presents with complaints of left hip pain, minimal left hip DJD. At this juncture we have discussed the findings and diagnosis as well as personally reviewed appropriate imaging and performed interpretation of related testing and examination with the patient in office today. Prior medical notes from Dr. Carrasco and history have been reviewed. At this time I would recommend evaluation by neurology. I do believe more of his issue is likely neurological in origin. He has newer uncontrollable movements of the left shoulder and cervical spine as well as some upper extremity and lower extremity spasticity issues. I believe his pain likely has an underlying neuropathic nature. 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 I did offer tramadol to help with some form of pain control and have given this to the patient today. We will refer him to neurology for evaluation. He can follow-up with me as needed. The patient has been involved in our cooperative treatment plan and agrees to move forward with treatment at this time. Radiographs reviewed with patient. Advised based on today's hip xrays showing minimal issues, and his exam/history, his pain appears to be stemming from the lumbar spine or potential neurological issues. Feb, Simple tics (ICD-10 - F95.9) We will send patient for an evaluation for neurology for further evaluation of his tics and pain. Once patient has a diagnosis/cause of the tics, may consider further orthopedic treatment. Feb, Paresthesia of upper and lower extremities of both sides (ICD-10 - R20.2) Referral to neurology for evaluation Feb, Hyporeflexia (ICD-10 - R29.2) Referral to neurology for evaluation Feb, Spasticity (ICD-10 - R25.2) Referral to neurology for evaluation Feb, Other See orders for this visit as documented in the electronic medical record. [employer] Other 09-17-2021 NotePROCEDURE: XR HIP LT 2 3V W PELVIS HISTORY: Pain of left hip joint , acute COMPARISON: None. FINDINGS: BONES:Mild narrowing of the superior aspect of the hip joint spaces bilaterally, left greater than right. Small degenerative osteophytes along the superior articular margins bilaterally. No fracture, dislocation, bone lesion. SOFT TISSUES:No visible soft tissue swelling. EFFUSION:None visible. OTHER: Negative. IMPRESSION: 1. No acute bone abnormality. 2. Mild degenerative joint disease of the hips, left greater than right. Electronically authenticated by: CHILO ROBLES Date: 2021-01-20 16:20[facility] [place] noteNo assessment information [facility] Work Phone: Evaluation note* Diagnosis Glaucoma suspect of both eyes- Primary Preglaucoma, unspecified PCO (posterior capsular opacification), bilateral After-cataract, unspecified PCO (posterior capsular opacification), bilateral- Primary After-cataract, unspecified Glaucoma suspect of both eyes Preglaucoma, unspecified documented in this encounter [facility] [place] noteNort [employer] Other Evaluation note* Diagnosis Glaucoma suspect of both eyes- Primary Preglaucoma, unspecified documented in this encounter [facility] noteNo [facility]No[facility] [employer] Other Evaluation note* Diagnosis Post-op pain- Primary Other acute postoperative pain [facility] [place] [facility]* Diagnosis Onset Date Resolution Status BPV (benign positional vertigo) acute Hypertension acute Left wrist pain acute Type 2 diabetes mellitus with hyperglycemia [facility] Work Phone: Evaluation note* Diagnosis ASCVD (arteriosclerotic cardiovascular disease)- Primary Unspecified cardiovascular disease History of PTCA Postsurgical percutaneous transluminal coronary angioplasty status Mixed hyperlipidemia Essential hypertension Unspecified essential hypertension S/P CABG (coronary artery bypass graft) Postsurgical aortocoronary bypass status BMI 39.0-39.9,adult Former smoker Personal history of tobacco use, presenting hazards to health documented in this encounter [facility] Work Phone: Evaluation note* Diagnosis Onset Date Resolution Status BPV (benign positional vertigo) acute Hypertension acute Left wrist pain acute Type 2 diabetes mellitus with hyperglycemia acute Asthma acute [facility] Work Phone: Evaluation note* Diagnosis Onset Date Resolution Status Asthma acute Hyperlipidemia acute Hypertension acute Type 2 diabetes mellitus with hyperglycemia acute [facility] Work Phone: History general Narrative - Reported* Type Description Date Medical History CAD Medical History VASQUEZ Medical History Hypertension Medical History Esophageal reflux Surgical History CABG 2005 Surgical History Neck Surgery 2002 Surgical History carpal tunnel release 2003 Surgical History pilonidal cyst 1979 Surgical History tonsillectomy 1968 Surgical History appendectomy 1972 Surgical History tear duct surgery 1976 Surgical History heart stents [employer] Other History general Narrative - [employer] Other History general Narrative - Reported* Type Description Date Medical History CAD Medical History VASQUEZ Medical History Hypertension Medical History Esophageal reflux Surgical History CABG 2005 Surgical History Neck Surgery 2002 Surgical History carpal tunnel release 2003 Surgical History pilonidal cyst 1979 Surgical History tonsillectomy 1968 Surgical History appendectomy 1972 Surgical History tear duct surgery 1976 Surgical History heart stents Hospitalization History SEE SURGICAL HX [employer] Other History general Narrative - Reported* Type Description Date Medical History CAD Medical History VASQUEZ Medical History Hypertension Medical History Esophageal reflux Surgical History CABG 2005 Surgical History Neck Surgery 2002 Surgical History carpal tunnel release 2003 Surgical History pilonidal cyst 1979 Surgical History tonsillectomy 1968 Surgical History appendectomy 1972 Surgical History tear duct surgery 1976 Surgical History heart stents Surgical History lt. knee arthroscopy 01/2023 ? Hospitalization History SEE SURGICAL HX [employer] Other History of Present illness NarrativePatient returns in follow-up of problems as noted. He is doing well. I cannot elicit any angina CHFarrhythmia or neurologic symptomatology. Treatment and control of his risk factors including his hypertension and hyperlipidemia is reviewed and felt to be adequate and appropriate. He has none of the symptoms of coronary disease that preceded his original diagnosis and subsequent PTCA and/or bypass surgery because of this we believe he is doing well. We did discuss his COPD from his prior smoking history and it is not lifestyle limiting. He was congratulated on his continued tobacco abstinence. We did advocate a calorie restricted diet with exercise and weight loss.-[facility] DO Work Phone: Reason for referral (narrative)* Reason refer patient to F neurology for further evaluation of potential neurological disorder. Hx of tics, peripheral peristhesia upper and lower extremities, hyporeflexia, spasticity. Please eval jose raul Diagnosis 1 Simple tics (F95.9) Referral Organization [facility] Referring Provider First Name Lam Referring Provider Last Name Latanya Referring Provider Specialty Orthopedic Surgery Referred [facility] Referred Address [address] [place] [place], [place],[address] Referred Provider Specialty Neurology Referral Priority Routine [facility] [employer] Other [employer] for referral (narrative)* Consultation (Routine) - Authorized Specialty Diagnoses / Procedures Referred By Lizy barakat Referred To Contact Cardiology Diagnoses ASCVD (arteriosclerotic cardiovascular disease) Procedures Follow Up In Cardiology Joshua Clark MD [address] [address], [address] [address] Joshua Dill DO [address] [facility] [address], [address] [address] Referral ID Status Reason Start Date Expiration Date V isits Requested Visits Authorized [id number] Authorized 09/24/2023 09/23/2024 1 1 [facility] Work Phone: Summary Purpose Family History Unknown Family Member Name Dates Details Family history of arterioscl erotic cardiovascular disease: Father(V17.49, Z82.49) Status:Active Family history of coronary a rtery disease: Brother(V17.3, Z82.49) Status:Active Relationship Condition Age at Onset Recorded Date/T narinder Not Specified Sudden cardiac Unknown Asthma Unknown Unknown Family Member Name Dates Details Family history of arterioscl erotic cardiovascular disease: Father(V17.49, Z82.49) Status:Active Family history of coronary a rtery disease: Brother(V17.3, Z82.49) Status:Active Unknown Family Member Name Dates Details Family history of arterioscl erotic cardiovascular disease: Father(V17.49, Z82.49) Status:Active Family history of coronary a rtery disease: Brother(V17.3, Z82.49) Status:Active Unknown Family Member Name Dates Details Family history of coronary a rtery disease: Brother(V17.3, Z82.49) Status:Active Family history of arterioscl erotic cardiovascular disease: Father(V17.49, Z82.49) Status:Active Unknown Family Member Name Dates Details Family history of arterioscl erotic cardiovascular disease: Father(V17.49, Z82.49) Status:Active Family history of coronary a rtery disease: Brother(V17.3, Z82.49) Status:Active Relationship Condition Age at Onset Recorded Date/T narinder Not Specified Chronic obstructive pulmonary disease Un known Unknown father Heart disease Unknown Relationship Condition Age at Onset Recorded Date/T narinder mother Chronic obstructive pulmonary disease Unk nown Unknown father Heart disease Unknown Advance Directives Advance Directive Response Recorded Date/ Time Advance Directives No July 09 11:20am Chief Complaint VÍCTOR NICHOLS is being seen for a 4 month follow-up of. Chief Complaint and Reason for Visit Chief Complaint M25.511,M25.512 G30.9 Chief Complaint G30.9 Chief Complaint Dizziness discuss testing that needs done Reason for Visit BPV (benign position al vertigo) Hypertension Left wrist pain Type 2 diabetes mellitus with hyperglycemia Chief Complaint Dizziness discuss testing that needs done M25.532 3 Month f/u- Asthma Reason for Visit BPV (benign position al vertigo) Hypertension Left wrist pain Type 2 diabetes mellitus with hyperglycemia Asthma Chief Complaint 3 Month f/u- Asthma MAWV Reason for Visit Asthma Hyperlipidemia Hypertension Type 2 diabetes mellitus with hyperglycemia Reason for Referral Reason Dr. Rufina Coulter - dark hard cerumen occlusion on R eardrum. Diagnosis 1 Right ear impacted c erumen (H61.21) Referral Organization [facility] Nicho sanchez Referring Provider First Name Luis Alberto Referring Provider Last Name Danilo Referring Provider Specialty Family [facility] Referred Organization [facility] Referred Address ,[place], [place],[address] Referred Provider Specialty Ear, Nose an d Throat Referral Priority Routine Additional Source Comments (unrecognized sect ion and content) No Status Records FoundNo Status Records FoundNo Status Records FoundNo Status Records FoundNo Status Records FoundNo Status Records FoundNo Status Records Found INFORMATION SOURCE (unrecogn ized section and content) DATE CREATED AUTHOR 02/06/2021 [facility] DATE CREATED AUTHOR AUTHOR'S ORGANIZ ATION 09/04/2021 [employer] DATE CREATED AUTHOR AUTHOR'S ORGANIZ ATION 01/01/2022 [facility] DATE CREATED AUTHOR AUTHOR'S ORGANIZ ATION 11/01/2022 [facility] DATE CREATED AUTHOR AUTHOR'S ORGANIZ ATION 08/31/2023 [facility] DATE CREATED AUTHOR AUTHOR'S ORGANIZ ATION 09/26/2023 [facility] DATE CREATED AUTHOR AUTHOR'S ORGANIZ ATION 11/01/2023 [facility] EPIC Source Comments (unrecognize d section and content) In the event this informatio n is protected by the Federal Confidentiality of Alcohol and Drug Abuse Patient Records regulations: The Federal rules restrict any use of the information to criminally investigate or prosecute any alcohol or drug abuse patient.[facility] CenterIn the event this information is protected by the Federal Confidentiality of Alcohol and Drug Abuse Patient Records regulations: The Federal rules restrict any use of the information to criminally investigate or prosecute any alcohol or drug abuse patient.[facility] CenterIn the event this information is protected by the Federal Confidentiality of Alcohol and Drug Abuse Patient Records regulations: The Federal rules restrict any use of the information to criminally investigate or prosecute any alcohol or drug abuse patient.[facility] CenterIn the event this information is protected by the Federal Confidentiality of Alcohol and Drug Abuse Patient Records regulations: The Federal rules restrict any use of the information to criminally investigate or prosecute any alcohol or drug abuse patient.[facility] Center[facility] the event this information is protected by the Federal Confidentiality of Alcohol and Drug Abuse Patient Records regulations: The Federal rules restrict any use of the information to criminally investigate or prosecute any alcohol or drug abuse patient.[facility] Reason for Visit (unrecogniz ed section and content) Reason Comments Received Outside Medical Records [facility] Reason Comments Appointment Reason Comments Glaucoma Evaluation New Patient Reason Comments Posterior Capsule Opacification Follow U p Both Eyes 3-4 weeks VATA / HVF Reason Comments Primary Open Angle Glaucoma Follow Up X 4-6 weeks Vata and HVF 24-2 Fast and OCT Reason Comments Follow-up 6m Care Teams (unrecognized sec tion and content) Team Status: Active Member Role Status Dates Luis Alberto Carrasco MD Primary Care Provider Active Team Status: Inactive Member Role Status Dates Luis Alberto Carrasco MD Primary Care Provide r, Attending Provider Active Start: July 15, 2023 End: July 15, 2023 Team Status: Inactive Member Role Status Dates Luis Alberto Carrasco MD Primary Care Provide r, Attending Provider Active Start: August 26, 2023 End: August 26, 2023 Manager New Product Relationship Specialty Start Date End Date Tim Adams Jr. PCP - General 07/18/06 Lam Andrew DO Referring Emergency Medicine 02/23/21 Team Status: Inactive Member Role Status Dates Luis Alberto Carrasco MD Primary Care Provider Active Papa Washburn DO Attending Provider Active Team Status: Inactive Member Role Status Dates Luis Alberto Carrasco MD Primary Care Provider, Attending P olena Active Manager New Product Relationship Specialty Start Date End Date Tim Adams Jr. PCP - General 07/18/06 Lam Andrew DO Referring Emergency Medicine 02/23/21 Manager New Product Relationship Specialty Start Date End Date Tim Adams Jr. PCP - General 07/18/06 Lam Andrew DO Referring Emergency Medicine 02/23/21 Manager New Product Relationship Specialty Start Date End Date Luis Alberto Carrasco MD [address] [place] [address] PCP - General Family Medicine 09/18/22 Manager New Product Relationship Specialty Start Date End Date Luis Alberto Carrasco MD [address] [place] [id number] PCP - General Family Medicine 09/18/22 Manager New Product Relationship Specialty Start Date End Date Luis Alberto Carrasco MD [address] [facility] [place] [address] PCP - General Family Medicine 09/18/22 Team Status: Inactive Member Role Status Dates Luis Alberto Carrasco MD Primary Care Provide r, Attending Provider Active Start: August 29, 2023 End: August 29, 2023 Manager New Product Relationship Specialty Start Date End Date Luis Alberto Carrasco [facility] [address] [facility] [place] [address] PCP - General 11/20/18 Team Status: Active Member Role Status Dates Luis Alberto Carrasco MD Primary Care Provide r, Attending Provider Active Start: August 30, 2023 Team Status: Inactive Member Role Status Dates Luis Alberto Carrasco MD Primary Care Provider Active Start: October 01, 2023 End: October 01, 2023 Kelly Daniel APRN [facility] Attending Provider Active Start: October 01, 2023 End: October 01, 2023 Team Status: Inactive Member Role Status Dates Luis Alberto Carrasco MD Primary Care Provide r, Attending Provider Active Start: December 24, 2023 End: December 24, 2023 Goals (unrecognized section and content) Goals may be documented in a n alternate sectionGoals may be documented in an alternate sectionNo InformationNo InformationNo InformationNo InformationNo InformationNo InformationNo InformationNo InformationNo InformationGoals may be documented in an alternate sectionGoals may be documented in an alternate sectionGoals may be documented in an alternate sectionGoals may be documented in an alternate section FOR RECORDS PERTAINING TO PATIENTS WHO ARE OR HAVE BEEN ENROLLED IN A CHEMICAL DEPENDENCY/SUBSTANCEABUSE PROGRAM, SOME INFORMATION MAY BE OMITTED. This clinical summary was aggregated from multiple sources. Caution should be exercised in using it in the provision of clinical care. This summary normalizes information from multiple sources, and as a consequence, information in this document may materially change the coding, format and clinical context of patient data. In addition, data may be omitted in some cases. CLINICAL DECISIONS SHOULD BE BASED ON THE PRIMARY CLINICAL RECORDS. [facility] [employer] [facility]. provides no warranty or guarantee of the accuracy or completeness of information in this document.
[2023-12-26 09:59] LABS: Basophils Absolute Auto 0.1 10^3/uL (0.0-0.1); Basophils Percent Auto 0.9 % (0.2-2.0); Eosinophils Absolute Auto 0.2 10^3/uL (0.0-0.7); Eosinophils Percent Auto 3.5 % (0.9-7.0); Hematocrit 45.9 % (42.0-54.0); Hemoglobin 14.7 g/dL (14.0-18.0); Immature Granulocytes Abs Auto 0.02 10^3/uL (0.00-0.03); Immature Granulocytes Pct Auto 0.3 % (0.0-0.5); Lymphocytes Absolute Auto 2.1 10^3/uL (1.2-3.8); Lymphocytes Percent Auto 30.3 % (20.5-60.0); Mean Corpuscular Hemoglobin 30.4 pg (25.9-34.0); Mean Platelet Volume 11.2 fL (9.5-13.5); Monocytes Absolute Auto 0.8 10^3/uL (0.3-0.8); Neutrophils Absolute Auto 3.6 10^3/uL (1.4-6.5); Platelet Count 234 10^3/uL (150-450); Red Blood Count 4.83 10^6/uL (4.70-6.10); Red Cell Distribution Width 12.4 % (11.0-15.0); White Blood Count 6.8 10^3/uL (4.0-11.0)
[2023-12-26 10:23] LABS: Estimated Average Glucose 128 mg/dL; Glycohemoglobin A1C 6.1 % (4.5-6.2)
[2023-12-26 10:43] LABS: Prostate Specific Antigen Scrn 5.33 ng/mL (<=4.00)
[2023-12-26 11:18] LABS: Alanine Aminotransferase 33 U/L (16-63); Albumin Globulin Ratio 1.2; Albumin Level 3.8 g/dL (3.4-5.0); Alkaline Phosphatase 66 U/L (46-116); Anion Gap 9.8; Aspartate Amino Transferase 15 U/L (15-37); BUN Creatinine Ratio 21.6; Bilirubin Total 0.3 mg/dL (0.2-1.0); Calcium 8.8 mg/dL (8.5-10.1); Carbon Dioxide 30.7 mmol/L (21.0-32.0); Chloride 104 mmol/L (98-107); Chol HDL Ratio 2.6; Cholesterol 152 mg/dL (<=200); Estimated GFR (African America >60 (>=60); Estimated GFR (Non-African Ame >60 (>=60); Globulin 3.2 g/dL; Glucose 93 mg/dL (74-106); HDL Cholesterol 58 mg/dL (40-60); LDL Cholesterol Calculated 85.8 mg/dL; Potassium 4.5 mmol/L (3.5-5.1); Sodium 140 mmol/L (136-145); Thyroid Stimulating Hormone 1.818 uIU/mL (0.358-3.740); Triglycerides 41 mg/dL (<=150); VLDL CHOLESTEROL 8.2 mg/dL
== END 2023-12-26 09:05 | disposition home or self-care (01) ==
LOC: LAB 09:06
PROVIDERS: PCP Family Medicine; Visit Provider Family Medicine
DX: E11.65 Type 2 diabetes mellitus with hyperglycemia (principal); E78.5 Hyperlipidemia, unspecified; I10 Essential (primary) hypertension
CPT/HCPCS: 36415; 80053; 80061; 83036; 84443; 85025; G0103

== ENCOUNTER 2024-04-10 12:25 | Outpatient (OUT) | payer OTHER, SELFPAY ==
[2024-04-10 13:21] LABS: Prostate Specific Antigen Dx 4.97 ng/mL (<=4.00)
== END 2024-04-10 12:26 | disposition home or self-care (01) ==
LOC: LAB 12:28
PROVIDERS: PCP Family Medicine; Visit Provider Family Medicine
DX: R97.20 Elevated prostate specific antigen [PSA] (principal)
CPT/HCPCS: 36415; 84153

== ENCOUNTER 2024-05-19 15:39 | Emergency (ER) | payer OTHER, SELFPAY ==
[2024-05-19 15:46] VITALS: PULSE 78; TEMP 36.7; O2SAT 97; BMI 40.4
--- OUTSIDE RECORDS SUMMARY | 2024-05-19 15:47 | XMS_ITS | CCD ---
Author Organization [facility] Care Team Providers Care Sheriffs Name Role Phone SANFORD, DR TRIPLETT Attending Unavailable JUSTA GONZALEZ Consulting Unavailable SANFORD, DR TRIPLETT Admitting Unavailable DANILO, DR LUIS ALBERTO Espinoza Primary Care Unavailable CHILO SON Consulting Unavailable DANILO, DR LUIS ALBERTO Espinoza [...] Provider Unava ilable Lam Andrew (Hist) Unavailable [phone] Luis Alberto Carrasco Unavailable Unavailable Unavailable Lam Andrew DO Unavailable MD Luis Alberto Carrasco Primary Care Provider [phone] MD Luis Alberto Carrasco Attending Provider [phone] DO Papa Washburn Attending Provider MD Luis Alberto Carrasco Primary Care Provider MD Luis Alberto Carrasco Attending Provider [phone] Lam Andrew Unavailable Ras Mejias Unavailable [phone] Tim Adams Jr. Primary Care Provider Unava ilLam Musa DO Unavailable [phone] Luis Alberto Carrasco Unavailable Amber MACK, Dr. Joshua Alcantar Referring Unavailable Amber MACK, Dr. Joshua Alcantar Attending Unavailable Danilo, Dr. Luis Alberto Jacobs Primary Care Unav Luis Alberto Roque MD Primary Care Provider [phone] MD Luis Alberto Carrasco Primary Care Provider MD Luis Alberto Carrasco Attending Provider [phone] Luis Alberto Carrasco Attending Unavailable Luis Alberto Carrasco Admitting Unavailable Luis Alberto Carrasco Primary Care Unavailable Luis Alberto Carrasco MD Primary Care Provider [phone] PETER POE Attending Unavailable STEPJR. JAY, SIMONE Torre Attending Unavaila ble PETER POE Attending Unavailable STEPANIC, , SIMONE Torre Attending Unavaila PETER Ruiz Attending Unavailable MARYBETH MASON Attending Unavailable MARYBETH MASON Attending Unavailable STEPJR. JAY, SIMONE Torre Attending Unavaila ble STEPJAY, JR., SIMONE Torre Referring Unavaila ble STEPJAY, , SIMONE Torre Attending Unavaila ble STEPJAY, JRJessica, SIMONE Torre Attending Unavaila ble STEPJAY, JRJessica, SIMONE Torre Attending Unavaila ble STEPANIC, JRJessica, SIMONE Torre Referring Unavaila JUSTNIE Gonzales Attending Unavailable LUIS ALBERTO CARRASCO Referring Unavailable JOSHUA CLARK Attending Unavailable LUIS ALBERTO CARRASCO Primary Care Unavailable JOSHUA DILL Attending Unavailable LUIS ALBERTO CARRASCO Primary Care Unavailable Allergies Allergy Classification Reported Allergen(s) Allergy Type Date of Onset Reaction(s) Facility (20 sources) fentaNYL; Translations: [Duragesic-100 PT72] Drug Allergy 9 Rash, Itching [facility] (7 sources) Hmg-Coa Reductase Inhibitors (Statins); Translations: [Statins] Allergy to drug (finding) Hives [facility] 250 DO Work Phone: (20 sources) Morphine; Translations: [morphine] Drug Allergy [address] [facility] (11 sources) ranolazine; Translations: [Ranexa] Drug Allergy 3 Nausea Only [facility] 250 DO Work Phone: (8 sources) fentaNYL; Translations: [FENTANYL] Drug Allergy 0 Itching, Itching, Comment:Freetex t Needs Updated. [facility] (14 sources) Duragesic-75 Drug allergy 4 Unknown, [facility] (7 sources) atorvastatin Drug Allergy 6 Unknown, [facility] (7 sources) venlafaxine Drug Allergy 4 Comment:tired, no appetite [facility] (2 sources) Duragesic-100 Drug allergy 5 Comment:Freetex t Needs Updated. [facility] Other (6 sources) ranolazine; Translations: [RANOLAZINE] Drug Allergy 3 [facility] (3 sources) HMG-CoA reductase inhibitor; Translations: [[id number] REDUCTASE INHIBITORS] Drug Allergy 3 [facility] Work Phone: (3 sources) vilanterol Drug Allergy 4 [facility] (2 sources) Spironolactone; Translations: [SPIRONOLACTONE] Drug Allergy 4 GI Upset, Myalgia [facility] Work Phone: Medications Current Medications Medication Drug Class(es) Dates Sig (Normalized) Sig (Original) [id number] 200 actuat albuterol 0.09 mg/actuat metered dose [...] Reductase Inhibitor Start: 10-28-19 End: 09-24-19 take 1 tablet by mouth at bedtime atorvastatin (Lipitor) 40 MG tablet Take 40 mg by mouth at bedtime. 08/23/2022 Active Comment on above: Atorvastatin Active 40 MG Oral Every evening October 28, 2019 9:10am Azithromycin (13 sources) Macrolide Antimicrobial Start: 01-14-20 Azithromycin Active 0 PO daily 6 January 14, 2024 12:00am Take 2 on day 1 and then take 1 for the next 4 days (days 2-5) Start: 08-22-2022 Azithromycin 2 50 MG as directed Orally 2 tabs po [...] Platelet Inhibitor Start: 10-27-2017 End: 09-23-2024 take 1 tablet by mouth once daily clopidogrel (Plavix) 75 mg tablet Indications: ASCVD (arteriosclerotic cardiovascular disease) , History of PTCA Take 1 tablet (75 mg) by mouth once daily. 90 tablet 3 09/24/2023 09/23/2024 Active Comment on above: Take 75 mg by mouth. diazePAM 2 mg oral tablet (20 sources) Benzodiazepine Start: 10-28-2019 take 1 tablet by mouth twice daily as needed diazePAM (Valium) 2 mg tablet Take 1 tablet (2 mg) by mouth 2 times a day as needed. 08/16/2021 Active Start: 10-27-2017 End: 10-25-2019 Diazepam Discontinued 5 MG P O 2-3 TIMES PER DAY October 27, 2017 12:00am October 25, 2019 12:28pm diazePAM (Valium ) 5 MG tablet 2 mg 1 (one) time each day at the same time. Active take 1 tablet by janey th [...] Active donepezil hydrochloride 5 mg oral tablet (13 sources) Start: 08-30-2021 End: 09-24-2023 take 1 tablet by mouth once daily at bedtime donepezil (Aricept) 5 mg tablet Take 1 tablet (5 mg) by mouth once daily at bedtime. 08/30/2021 09/24/2023 Discontinued (Therapy completed) furosemide 20 mg oral tablet (15 sources) Loop Diuretic Start: 05-05-2024 End: 05-05-2025 take 1 tablet by mouth once daily furosemide (Lasix) 20 mg tablet Indications: Edema, unspecified type Take 1 tablet (20 mg) by mouth once daily. 90 tablet 3 05/05/2024 05/05/2025 Active Start: 10-27-2017 End: 10-25-2019 take 1 tablet by mouth once daily Furosemide (Lasix) 40 mg tablet Discontinued 40 MG PO Daily June 04, 2018 1:00am October 25, 2019 8:31am hydroCHLOROthiazide 12.5 mg / lisinopril 10 mg oral tablet (20 sources) Thiazide Diuretic, Angiotensin Converting Enzyme Inhibitor Start: 12-15-2020 take 10-12.5 mg by mouth once lisinopril-hydroCHLOROthiazide (PRINZIDE,ZESTORETIC) 10-12.5 mg per tablet Take 1 tablet by mouth once daily. 0 12/15/2020 Active Start: 10-27-2017 End: 09-23-2024 take 1 tablet by mouth once daily lisinopriL-hydrochlorothiazide 10-12.5 m g tablet Indications: ASCVD (arteriosclerotic cardiovascular disease) , Essential hypertension Take 1 tablet by mouth once daily. 90 tablet 3 09/24/2023 09/23/2024 Active lisinopril-hydro CHLOROthiazide 10-12.5 MG tablet lisinopril 10 mg-hydrochlorothiazide 12.5 mg tablet Active Comment on above: Take 1 tablet by janey th once daily. 24 hr isosorbide mononitrate 120 mg extended release oral tablet (20 sources) Nitrate Vasodilator Start: End: 05-21-202 5 take 1 tablet by mouth in the morning, then take 1 tablet by mouth every twenty-four hours isosorbide mononitrate ER (Imdur) 120 MG 24 hr tablet Take 120 mg by mouth in the morning. 09/07/2022 Active Start: 10-27-2017 take 60 mg by mouth once daily Isosorbide Mononitrate Active 60 MG PO Daily October 27, 2017 12:00am Comment on above: Take 120 mg by mouth once daily. meclizine hydrochloride 12.5 mg oral tablet (5 sources) Antiemetic Start: Meclizine Active 12.5 MG PO 2-3 TIMES PER DAY July 15, 2023 12:00am 24 hr metoprolol succinate 25 mg extended release oral tablet (20 sources) beta-Adrenergic Miguel A Start: 3 take 1 tablet by mouth every twenty-four hours in the morning metoprolol succinate XL (Toprol-XL) 25 MG 24 hr tablet Take 25 mg by mouth in the morning. 09/18/2022 Active Start: 10-28-2019 take 1 tablet by janey th every twenty-four hours metoprolol succinate ER (TOPROL XL) 25 mg 24 hr tablet Metoprolol Succinate Active 25 MG Oral Daily October 28, 2019 9:41am 0 10/28/2019 Active Start: 10-28-2019 End: 09-23-2024 take 1 tablet by mouth once daily metoprolol succinate XL (Toprol-XL) 25 mg 24 hr tablet Indications: Essential hypertension Take 1 tablet (25 mg) by mouth once daily. 90 tablet 3 09/24/2023 09/23/2024 Active Comment on above: Metoprolol Succinate Active 25 MG Oral Daily October 28, 2019 9:41am omeprazole 20 mg delayed release oral capsule (20 sources) Proton Pump Inhibitor Start: 11-14-2017 End: 07-11-2023 take 20 mg by mouth once daily Omeprazole Active 20 MG PO Daily July 11, 2023 2:53pm Comment on above: Omeprazole Active 20 MG Oral Daily November 14, 2017 10:03am potassium chloride 10 meq extended release oral tablet (8 sources) Start: 05-05-2024 End: 05-05-2025 take 1 tablet by mouth once daily potassium chloride CR (Klor-Con) 10 mEq ER tablet Indications: Edema, unspecified type Take 1 tablet (10 mEq) by mouth once daily. Do not crush, chew, or split. 90 tablet 3 05/05/2024 05/05/2025 Active Start: 10-27-2017 End: 10-25-2019 take 10 mEq by mouth once daily Potassium Chloride Discontinued 10 MEQ PO Daily October 27, 2017 12:00am October 25, 2019 8:32am 60 actuat tiotropium 0.0025 mg/actuat inhalation spray (20 sources) Anticholinergic Start: 10-01-2023 take 1 puff(s) by inhalation once daily Tiotropium Sherr[place] (Spiriva Respimat) 2.5 mcg/actuation mist Active 2 PUFF INHALATION Daily October 01, 2023 12:00am Start: 09-07-2022 take 2 puff(s) by in halation once daily Spiriva Respimat 2.5 MCG/ACT inhaler USE 2 PUFFS DAILY 09/07/2022 Active Start: 03-21-2021 take 2 puff(s) by mo uth once daily Spiriva Respimat 2.5 MCG/ACT Inhalation Aerosol Solution INHALE 2 PUFFS BY MOUTH DAILY Quantity: 4 Refills: 0 Ordered: 21-Mar-2021 DO Start : 21-Mar-2021 Active Start: 03-21-2021 take 2 puff(s) by in halation once daily SPIRIVA RESPIMAT 2.5 mcg/actuation inhaler Inhale 2 Puffs as instructed once daily. 0 03/21/2021 Active Start: 10-25-2019 End: 09-23-2023 take 2.5 ug by inhalation once daily Tiotropium [place] (Spiriva Respimat) 2.5 mcg/actuation mist Discontinued 2.5 MCG INHALATION Daily October 25, 2019 12:00am September 23, 2023 9:31am Start: 10-25-2019 End: 10-25-2019 Tiotropium [place] (Spiriva Respimat) 2.5 mcg/actuation mist Discontinued INHALATION October 25, 2019 12:00am October 25, 2019 7:34am Start: 02-14-2018 take 2 puff(s) by in halation once daily Spiriva Respimat 2.5 MCG/ACT 2 puffs Inhalation Once a day for 30 days Feb, Active Start: 02-14-2018 Start: 10-27-2017 End: 05-29-2018 take 1 capsule by inhalation once daily Tiotropium [place] (Spiriva With Handihaler) 18 mcg Capsule, W/Inhalation [...] completed) Start: 03-06-2021 take 1 capsule by [facility] once daily venlafaxine ER (EFFEXOR XR) 37.5 mg 24 hr capsule Take 1 capsule by mouth once daily. Take 1 capsule daily for 1 week then increase to 2 capsules daily for 1 week then increase to 150 mg capsules and continue on that dose 21 capsule 0 03/06/2021 Active Comment on above: Take 1 capsule by mo [facility] once daily. Take 1 capsule daily for 1 week then increase to 2 capsules daily for 1 week then increase to 150 mg capsules and continue on that dose Take 1 capsule by mo [facility] once daily. Completed/Discontinued Medications Medication Drug Class(es) Dates Sig (Normalized) Sig (Original) atenolol 25 mg oral tablet (11 sources) beta-Adrenergic Miguel A Start: 10-27-2017 End: [...] Drop (FLURESS) benzonatate 200 mg oral capsule (11 sources) Non-narcotic Antitussive Start: 04-09-2020 End: 08-26-2023 [...] OPHTHALMIC Every evening November 14, 2017 12:00am bimatoprost (Lum igan) 0.03 % ophthalmic solution 1 (one) time each day at the same time. Active take 1 drop(s) into the eye(s) once daily at bedtime bimatoprost (Lumigan) 0.03 % ophthalmic solution Administer 1 drop into affected eye(s) once daily at bedtime. Active take 1 drop(s) into the eye(s) once daily in the evening Lumigan 0.01 % 1 drop into affected eye in the evening Ophthalmic Once a day Active Comment on above: Bimatoprost Active 1 DROPS Ophthalmic Every evening November 14, 2017 10:03am Fluticasone Propion-Salmeterol (14 sources) Corticosteroid, beta2-Adrenergic Agonist Start: 11-14-2017 End: [...] 12:00am May 29, 2018 10:28am Fluticasone Furoate-Vilanterol (5 sources) Corticosteroid, beta2-Adrenergic Agonist Start: 09-23-2023 End: [...] a day for 90 days Feb, Active gabapentin 300 mg oral capsule (7 sources) Anti-epileptic Agent Start: 10-27-2017 End: 10-25-2019 [...] every 5 minutes for chest pain orally Active Comment on above: Dissolve 0.4 mg unde r the tongue at bedtime as needed. Tiotropium-Olodaterol (7 sources) Anticholinergic, beta2-Adrenergic Agonist Start: 05-29-2018 End: 10-25-2019 Tiotropium-Olodaterol (Stiolto Respimat) 2.5-2.5 mcg/actuation Mist Discontinued 2 PUFF INHALATION Daily May 29, 2018 10:31am October 25, 2019 7:34am Start: 05-29-2018 End: 10-25-2019 Tiotropium-Olodaterol (Stiol to Respimat) 2.5-2.5 mcg/actuation Mist Discontinued 2 PUFF INHALATION Daily May 29, 2018 1:00am October 25, 2019 7:34am ondansetron 4 mg disintegrating oral tablet (5 sources) Serotonin-3 Receptor Antagonist Start: 07-15-2023 End: 08-26-2023 take 4 mg by mouth every eight hours Ondansetron Discontinued 4 MG PO Q8H July 15, 2023 12:00am August 26, 2023 10:04am oxyCODONE hydrochloride 15 mg oral tablet (14 sources) Opioid Agonist Start: 05-29-2018 End: 10-25-2019 take 15 mg by mouth three times daily Oxycodone Discontinued 15 MG PO Three times daily May 29, 2018 1:00am October 25, 2019 8:32am Start: 11-14-2017 End: 05-29-2018 take 10 mg by mouth every four to six hours Oxycodone Discontinued 10 MG PO EVERY 4-6 HOURS November 14, 2017 12:00am May 29, 2018 10:34am predniSONE 50 mg oral tablet (20 sources) Start: 04-09-2020 End: 10-01-2023 take 50 [...] ranolazine 500 mg extended release oral tablet (7 sources) Anti-anginal Start: 06-04-2018 End: 10-25-2019 take 1 tablet by mouth twice daily Ranolazine (Ranexa) 500 mg tablet extended release 12 hr Discontinued 500 MG PO Twice daily 60 June 04, 2018 1:00am October 25, 2019 8:33am simvastatin 10 mg oral tablet (7 sources) HMG-CoA Reductase Inhibitor Start: 11-14-2017 End: 10-25-2019 take 10 mg by mouth once daily in the evening Simvastatin Discontinued 10 MG PO Every evening November 14, 2017 12:00am October 25, 2019 8:31am spironolactone 25 mg oral tablet (20 sources) Aldosterone Antagonist Start: 10-25-2019 End: 09-23-2024 take 1 tablet by mouth once daily spironolactone (Aldactone) 25 mg tablet Indications: Essential hypertension Take 1 tablet (25 mg) by mouth once daily. 90 tablet 3 09/24/2023 05/05/2024 Discontinued (Med List Cleanup) Comment on above: Spironolactone Activ e 25 MG Oral Daily October 25, 2019 6:35am terazosin 5 mg oral capsule (7 sources) alpha-Adrenergic Miguel A Start: 11-14-2017 End: 10-25-2019 take 5 mg by mouth once daily Terazosin Discontinued 5 MG PO Daily November 14, 2017 12:00am October 25, 2019 8:33am Problems Active Problems Problem Classification Problem Date Documented Date Episodic/Chronic Acute myocardial infarction (7 sources) Subsequent non-ST segment elevation myocardial infarction; Translations: [Subendocardial infarction, episode of care unspecified] Onset: 04-12-2023 04-12-2023 Chronic Asthma (12 sources) Asthma; Translations: [Unspecified asthma, uncomplicated] 10-25-2019 Chronic Asthma (7 sources) Asthma 04-09-2020 Cataract (1 source) After-cataract of bilateral eyes; Translations: [Other secondary cataract, bilateral] Chronic Chronic obstructive pulmonary disease and bronchiectasis (10 sources) Chronic obstructive lung disease; Translations: [Chronic airway obstruction, not elsewhere classified] Onset: 04-12-2023 04-12-2023 Chronic Chronic obstructive pulmonary disease and bronchiectasis (1 source) Bronchitis, not specified as acute or chronic Episodic Conditions associated with dizziness or vertigo (8 sources) Benign paroxysmal positional vertigo; Translations: [Benign paroxysmal vertigo, unspecified ear] 07-22-2023 Episodic Coronary atherosclerosis and other heart disease (20 sources) Arteriosclerotic vascular disease; Translations: [Cardiovascular disease, unspecified] Onset: 04-12-2023 10-25-2019 Chronic Diabetes mellitus with complications (10 sources) Hyperglycemia due to type 2 diabetes mellitus; Translations: [Type 2 diabetes mellitus with hyperglycemia] 08-26-2023 Chronic Disorders of lipid metabolism (20 sources) Hyperlipidemia; Translations: [Other and unspecified hyperlipidemia] [...] Translations: [Patient encounter status] Onset: 04-05-2020 Episodic Osteoarthritis (2 sources) Osteoarthritis of left knee joint; Translations: [Unilateral primary osteoarthritis, left knee] 01-15-2024 Chronic Other and ill-defined heart disease (8 sources) Diastolic dysfunction; Translations: [Heart disease, unspecified] Onset: 04-12-2023 04-12-2023 Chronic Other and ill-defined heart disease (2 sources) Other ill-defined heart diseases; Translations: [Other ill-defined heart diseases] Onset: 04-12-2023 Chronic Other circulatory disease (1 source) Other specified symptoms and signs involving the circulatory and respiratory systems; Translations: [OTH SPEC SX SIGNS INVLV CIRC RS] Onset: 11-24-2020 Episodic Other circulatory disease (5 sources) H/O: angina pectoris; Translations: [Personal history of other diseases of circulatory system] Episodic Other ear and sense organ disorders (1 source) Impacted cerumen, right ear Episodic Other hematologic conditions (7 sources) Raised cardiac enzyme or marker; Translations: [Other specified abnormalities of plasma proteins] 10-25-2019 Episodic Other injuries and conditions due to external causes (3 sources) Unspecified foreign body in pharynx causing other injury, initial encounter; Translations: [UNS FB PHAR CAUS OTH INJ INIT ENC] Onset: 11-22-2020 Episodic Other lower respiratory disease (14 sources) Dyspnea; Translations: [Other respiratory abnormalities] Onset: 05-05-2024 10-27-2019 Episodic Other lower respiratory disease (7 sources) Viral respiratory infection; Translations: [Other specified respiratory disorders] 04-09-2020 Episodic Other lower respiratory disease (10 sources) Dyspnea on exertion; Translations: [Other forms of dyspnea] Episodic Other lower respiratory disease (2 sources) Other forms of dyspnea Onset: 03-21-2021 Resolved: 03-21-2021 Episodic Other lower respiratory disease (2 sources) Shortness of breath; Translations: [Shortness of breath] Onset: 05-05-2024 Episodic Other nervous system disorders (7 sources) Ulnar nerve entrapment at elbow; Translations: [Lesion of ulnar nerve, unspecified upper limb] Onset: 01-20-2016 10-08-2022 Chronic Other nervous system disorders (7 sources) Carpal tunnel syndrome of left wrist; Translations: [Carpal tunnel syndrome, left upper limb] Onset: 01-20-2016 10-08-2022 Chronic Other nervous system disorders (8 sources) Paresthesia; Translations: [Paresthesia of skin] Episodic Other nervous system disorders (1 source) Postoperative pain ; Translations: [Other acute postprocedural pain] 06-11-2023 Episodic Other non-traumatic joint disorders (3 sources) Pain in left knee; Translations: [Pain in joint, lower leg] Episodic Other non-traumatic joint disorders (5 sources) Pain in wrist; Translations: [Pain in left wrist] 08-26-2023 Episodic Other non-traumatic joint disorders (3 sources) Pain in left wrist; Translations: [Pain in joint, forearm] 08-26-2023 Episodic Other nutritional; endocrine; and metabolic disorders (5 sources) Obesity; Translations: [Obesity, unspecified] Chronic Other nutritional; endocrine; and metabolic disorders (11 sources) Body mass index 30+ - obesity; Translations: [Body mass index (BMI) 38.0-38.9, adult] Onset: 09-24-2023 10-25-2019 Chronic Other nutritional; endocrine; and metabolic disorders (2 sources) Body mass index (BMI) 39.0-39.9, adult; Translations: [Body mass index (BMI) 39.0-39.9, adult] Onset: 09-24-2023 Chronic Other upper respiratory infections (4 sources) Acute pharyngitis, unspecified; Translations: [Acute maxillary sinusitis, unspecified] Onset: 11-24-2020 Episodic Residual codes; unclassified (1 source) Localized edema Episodic Residual codes; unclassified (2 sources) Edema; Translations: [Edema, unspecified] Onset: 05-05-2024 05-05-2024 Episodic Residual codes; unclassified (2 sources) Edema, unspecified; Translations: [Edema, unspecified] Onset: 05-05-2024 Episodic Past or Other Problems Problem Classification Problem Date Documented Da te Episodic/Chronic Coronary atherosclerosis and other heart disease (4 sources) Coronary angioplasty status; Translations: [Presence of aortocoronary bypass graft] Onset: 04-12-2023 Episodic Malaise and fatigue (7 sources) Fatigue; Translations: [Other malaise and fatigue] Onset: 04-12-2023 04-12-2023 Episodic Other connective tissue disease (1 source) Cramp and spasm; Translations: [Spasticity R25.2] Onset: 02-20-2021 Resolved: 02-20-2021 Episodic Other connective tissue disease (7 sources) Pain in right arm; Translations: [Pain [...] LEFT HIP] Onset: 01-20-2021 Resolved: 02-20-2021 Episodic Screening and history of mental health and substance abuse codes (12 sources) Personal history of nicotine dependence; Translations: [Ex-smoker] Onset: 11-24-2020 09-24-2023 Episodic Comment on above: quit 2008; Spondylosis; intervertebral disc disorders; other back problems (7 sources) Low back pain; Translations: [Low back pain] Onset: 10-11-2016 10-08-2022 Episodic Unclassified (2 sources) Onset: 09-24-2023 Resolved: 05-05-2024 09-24-2023 Results Test Name Value Interpretation Reference Range Facility XR Knee - left 1 or 2 Viewso n 01-15-2024 Imaging Result: AP and lateral views of left knee showed severe varus deformity with [id number] articulation to the medial joint line, flattening of the articular surfaces to the medial joint line lateral joint line and patellofemoral joint. Subchondral sclerosis was noted at the medial joint line surfaces as well as the lateral joint line and patellofemoral joint. Marginal osteophytic formation was noted tricompartmentally. There is no evidence of fracture or dislocation. Impression: severe degenerative joint disease left knee with varus deformity [facility] Radiology Study observation (narrative) [facility] Basophils Auto (Bld) [#/Vol] on 12-26-2023 Basophils (Bld) [#/Vol] 0.1 10 3/uL 0.0-0.1 [facility] Basophils/100 WBC Auto (Bld) on 12-26-2023 Basophils/100 WBC (Bld) 0.9 % 0.2-2.0 [facility] Cholesterol in LDL Calc [Mas s/Vol]on 12-26-2023 Cholesterol in LDL [Mass/Vol] 85.8 mg/dL [facility] Comment on above: <100 mg/dl [id number] 0-129 mg/dl NEAR OR ABOVE [id number] mg/dl BORDERLINE [id number] mg/dl HIGH>190 mg/dl VERY HIGH Cholesterol in VLDL Calc [Ma ss/Vol]on 12-26-2023 Cholesterol in VLDL [Mass/Vol] 8.2 mg/dL [facility] Eosinophils/100 WBC Auto (Bl d)on 12-26-2023 Eosinophils/100 WBC (Bld) 3.5 % 0.9-7.0 [facility] Erythrocyte distribution wid th Auto (RBC) [Ratio]on 12-26-2023 Erythrocyte distribution width (RBC) [Ratio] 12.4 % 11.0-15.0 [facility] Estimated glomerular filtrat ion rate (GFR) non- Americanon 12-26-2023 GFR/1.73 sq M.predicted among non-blacks MDRD (S/P/Bld) [Vol rate/Area] mL/min/{1.73_m2} >=60 [facility] Globulin Calc (S) [Mass/Vol] on 12-26-2023 Globulin (S) [Mass/Vol] 3.2 g/dL [facility] Glucose mean value [Mass/vol ume] in Blood Estimated from glycated hemoglobinon 12-26-2023 Average glucose Estimated from glycated hemoglobin (Bld) [Mass/Vol] 128 mg/dL [facility] Hematocrit Auto (Bld) [Volum e fraction]on 12-26-2023 Hematocrit (Bld) [Volume fraction] 45.9 % 42.0-54.0 [facility] Hemoglobin [Mass/volume] in Bloodon 08-22-2024 Hemoglobin (Bld) [Mass/Vol] 14.7 g/dL 14.0-18.0 [facility] Laboratory - Chemistry and C hemistry - challengeon 12-26-2023 Albumin [Mass/Vol] 3.8 g/dL 3.4-5.0 [place] [facility] ALP [Catalytic activity/Vol] 66 U/L 46-116 [facility] ALT [Catalytic activity/Vol] 33 U/L 16-63 [facility] AST [Catalytic activity/Vol] 15 U/L 15-37 [facility] Bilirubin [Mass/Vol] 0.3 mg/dL 0.2-1.0 [facility] Calcium [Mass/Vol] 8.8 mg/dL 8.5-10.1 [facility] Chloride [Moles/Vol] 104 mmol/L 98-107 [facility] Cholesterol [Mass/Vol] 152 mg/dL <=200 [facility] Cholesterol in HDL [Mass/Vol] 58 mg/dL 40-60 [facility] Comment on above: > or =60 mg/dl - LOW CARDIOVASCULAR RISK<40 mg/dl - HIGH CARDIOVASCULAR RISK CO2 [Moles/Vol] 30.7 mmol/L 21.0-32.0 [facility] Creatinine [Mass/Vol] 0.97 mg/dL 0.70-1.30 [facility] GFR/1.73 sq M.predicted MDRD (S/P/Bld) [Vol rate/Area] mL/min/{1.73_m2} >=60 [facility] Glucose [Mass/Vol] 93 mg/dL 74-106 [facility] Potassium [Moles/Vol] 4.5 mmol/L 3.5-5.1 [facility] Protein [Mass/Vol] 7.0 g/dL 6.4-8.2 [facility] Sodium [Moles/Vol] 140 mmol/L 136-145 [facility] Triglyceride [Mass/Vol] 41 mg/dL <=150 [facility] TSH Qn 1.818 m[IU]/L 0.358-3.740 [facility] Urea nitrogen [Mass/Vol] 21.0 mg/dL High 7.0-18.0 [facility] Urea nitrogen/Creatinine [Mass ratio] 21.6 mg/mg [facility] Laboratory - Hematology and Cell countson 12-26-2023 HbA1c (Bld) [Mass fraction] 6.1 % 4.5-6.2 [facility] Comment on above: ADA RECOMMENDED LIMI T 4.0 - 6.0ADA THERAPEUTIC TARGET < 7.0ACTION SUGGESTED> 7.0 Immature granulocytes/100 WBC (Bld) 0.3 % 0.0-0.5 [facility] Leukocytes [#/volume] correc nick for nucleated erythrocytes in Blood by Automated counon 12-26-2023 WBC corrected for nucl RBC Auto (Bld) [#/Vol] 6.8 10 3/uL 4.0-11.0 [facility] Lymphocytes Auto (Bld) [#/Vo l]on 12-26-2023 Lymphocytes (Bld) [#/Vol] 2.1 10 3/uL 1.2-3.8 [facility] Lymphocytes/100 WBC Auto (Bl d)on 12-26-2023 Lymphocytes/100 WBC (Bld) 30.3 % 20.5-60.0 [facility] MCH Auto (RBC) [Entitic mass ]on 12-26-2023 MCH (RBC) [Entitic mass] 30.4 pg 25.9-34.0 [facility] MCHC Auto (RBC) [Mass/Vol]on 12-26-2023 MCHC (RBC) [Mass/Vol] 32.0 g/dL 29.9-35.2 [facility] MCV Auto (RBC) [Entitic vol] on 12-26-2023 MCV (RBC) [Entitic vol] 95.0 fL High 80.0-94.0 [facility] Monocytes Auto (Bld) [#/Vol] on 12-26-2023 Monocytes (Bld) [#/Vol] 0.8 10 3/uL 0.3-0.8 [facility] Monocytes/100 WBC Auto (Bld) on 12-26-2023 Monocytes/100 WBC (Bld) 12.0 % 1.7-12.0 [facility] Neutrophils Auto (Bld) [#/Vo l]on 12-26-2023 Neutrophils (Bld) [#/Vol] 3.6 10 3/uL 1.4-6.5 [facility] Neutrophils/100 WBC Auto (Bl d)on 12-26-2023 Neutrophils/100 WBC (Bld) 53.0 % 43.0-75.0 [facility] No Panel Informationon 12-25 Eosinophils # (Auto) 0.2 10 3/uL 0.0-0.7 [facility] Immature Granulocyte # (Auto) 0.02 10 3/uL 0.00-0.03 [facility] Prostate Specific Antigen Screen 5.33 ng/mL High <=4.00 [facility] Platelet mean volume Auto (B ld) [Entitic vol]on 12-26-2023 Platelet mean volume (Bld) [Entitic vol] 11.2 fL 9.5-13.5 [facility] Platelets Auto (Bld) [#/Vol] on 12-26-2023 Platelets (Bld) [#/Vol] 234 10 3/uL 150-450 [facility] RBC Auto (Bld) [#/Vol]on RBC (Bld) [#/Vol] 4.83 10 6/uL 4.70-6.10 [facility] Serum or plasma albumin/glob ulin mass ratioon 12-26-2023 Albumin/Globulin [Mass ratio] 1.2 {ratio} [facility] Serum or plasma anion gap de terminationon 12-26-2023 Anion gap [Moles/Vol] 9.8 mmol/L [facility] Serum or plasma total choles terol/high density lipoprotein (HDL) cholesterol mass lorenza 12-26-2023 Cholesterol.total/Chol esterol in HDL [Mass ratio] 2.6 {ratio} [facility] Comment on above: 3.3 - 4.4 LOW RISK4. 4 - 7.1 AVERAGE RISK7.1 - 11.0 MODERATE RISK>11.0 HIGH RISK MR WRIST LEFT WO IV CONTRAST on [...] non-blacks MDRD (S/P/Bld) [Vol rate/Area] mL/min/{1.73_m2} >=60 [facility] Globulin Calc (S) [Mass/Vol] on 08-30-2023 Globulin (S) [Mass/Vol] 3.3 g/dL [facility] Glucose mean value [Mass/vol ume] in Blood Estimated from glycated hemoglobinon 08-30-2023 Average glucose Estimated from glycated hemoglobin (Bld) [Mass/Vol] 126 mg/dL [facility] Laboratory - Chemistry and C hemistry - challengeon 08-30-2023 Albumin [Mass/Vol] 3.8 g/dL 3.4-5.0 [facility] ALP [Catalytic activity/Vol] 60 U/L 46-116 [facility] ALT [Catalytic activity/Vol] 31 U/L 16-63 [facility] AST [Catalytic activity/Vol] 19 U/L 15-37 [facility] Bilirubin [Mass/Vol] 0.5 mg/dL 0.2-1.0 [facility] Calcium [Mass/Vol] 8.8 mg/dL 8.5-10.1 [facility] Chloride [Moles/Vol] 102 mmol/L 98-107 [facility] CO2 [Moles/Vol] 26.7 mmol/L 21.0-32.0 [facility] Creatinine [Mass/Vol] 1.16 mg/dL 0.70-1.30 [facility] GFR/1.73 sq M.predicted MDRD (S/P/Bld) [Vol rate/Area] mL/min/{1.73_m2} >=60 [facility] Glucose [Mass/Vol] 115 mg/dL 74-106 [facility] Potassium [Moles/Vol] 4.2 mmol/L 3.5-5.1 [facility] Protein [Mass/Vol] 7.1 g/dL 6.4-8.2 [facility] Sodium [Moles/Vol] 139 mmol/L 136-145 [facility] Urea nitrogen [Mass/Vol] 18.0 mg/dL 7.0-18.0 [facility] Urea nitrogen/Creatinine [Mass ratio] 15.5 mg/mg [facility] Laboratory - Hematology and Cell countson 08-30-2023 HbA1c (Bld) [Mass fraction] 6.0 % 4.5-6.2 [facility] Comment on above: ADA RECOMMENDED LIMI T 4.0 - 6.0ADA THERAPEUTIC TARGET < 7.0ACTION SUGGESTED> 7.0 Microalbumin [Mass/volume] i n Urineon 08-30-2023 Albumin DL <= 20 mg/L (U) [Mass/Vol] mg/dL <=30.0 [facility] No Panel Informationon 08-29 Urine Random Creatinine 63.67 mg/dL 20.00-300.00 [facility] Serum or plasma albumin/glob ulin mass ratioon 08-30-2023 Albumin/Globulin [Mass ratio] 1.2 {ratio} [facility] Serum or plasma anion gap de terminationon 08-30-2023 Anion gap [Moles/Vol] 14.5 [facility] micro[facility]in/creatinin e mass ratioon 08-30-2023 Albumin/Creatinine DL <= 20 mg/L (U) [Mass ratio] 20.4 mg/g 0.0-29.9 [facility] Comment on above: NO MICROALBUMINURIA 0-29 MG/GCLINICAL MICROALBUMINURIA 30-300 MG/GMACROALBUMINURIA >300 MG/G XR wrist LT min 3V*on 2023 XR wrist LT min 3V* [facility] [place] [address] XRay Report Signed Patient: Víctor Nichols SR MR#: [id number] : 1950 Acct:[id number] Age/Sex: 72 / M ADM Date: 08/29/23 Loc: X Room: Type: [facility] Attending Dr: Luis Alberto Carrasco MD Copies [...] Chad Scales M.D.08/29/2023 8:40 PM Dictation Location: [place] [address] Transcribed By: [facility] 08/29/232039 Dictated By: Chad Scales II, MD 08/29/232036 Signed By: 08/29/232039 Normal [facility] CARDIAC STRESS/REST ALICIA Kennedy 10-31-2022 [facility] CARDIAC STRESS/REST INJECTION Patient Name: VÍCTOR NICHOLS STUDY: MYOCARDIAL PERFUSION STRESS TEST WITH LEXISCAN Performing facility: [facility], [address] [place] [address], [address], [address] Provider: Helen Clark MD, [facility] PCP: Dr. Alize Carrasco Supervising provider: Helen Clark MD, [facility] INDICATION: ASCVD Hx PTCA Diastolic dysfunction Hx CABG Pre-operative risk assessment for Knee surgery scheduled at [facility] on . HISTORY: Gender: M; Age: 71 y/o ; Height: 157.48 cm; Weight: 96.3623510 kg. CAD; High Cholesterol; Previous TX; HTN; COPD; Quit smoking 14 years ago. Cardiac catheterization on 2007, 2013, 2017, 2018, 2019. PTCA on 2007. CABG on 2004. COMPARISON: Previous nuclear testing completed at [facility]. ACCESSION NUMBER(S): [id number]; [id number]; [id number] ORDERING CLINICIAN: JOSHUA CLARK TECHNIQUE: ONE DAY [...] Electronically signed by: SEEMA CLIFFORD MD Normal [facility] No Panel Informationon 10-31 Normal [facility] 250 DO Work Phone: Creatinine and Glomerular fi ltration rate.predicted panel (S/P/Bld)Ordered By: Luis Alberto Carrasco on 09-20-2021 Creatinine [Mass/Vol] 1.16 mg/dL 0.64-1.27 [facility] Estimated glomerular filtrat ion rate (GFR) non- AmericanOrdered By: Luis Alberto Carrasco on 09-20-2021 GFR/1.73 sq M.predicted among non-blacks MDRD (S/P/Bld) [Vol rate/Area] > 60 mL/Min [facility] No Panel InformationOrdered By: Luis Alberto Carrasco on 09-20-2021 Estimated GFR () > 60 mL/Min [facility] Comment on above: GFR estimated refere nce range: According to KDOQI guidelines, <60 ml/min/1.73m2 is sufficient to diagnose a patient with chronic kidney disease. Pharmacy Creatinine Clearance (Chem N/A [facility] Serum or plasma calcium vadim urement (mass/volume)Ordered By: Luis Alberto Carrasco on 09-20-2021 Calcium [Mass/Vol] 9.2 mg/dL 8.2-10.2 [facility] Serum or plasma chloride sheri surement (moles/volume)Ordered By: Luis Alberto Carrasco on 09-20-2021 Chloride [Moles/Vol] 100 mmol/L 95-114 [facility] Serum or plasma glucose vadim urement (mass/volume)Ordered By: Luis Alberto Carrasco on 09-20-2021 Glucose [Mass/Vol] 112 mg/dL 70-100 [facility] Comment on above: ADA recommended refe rence range Random Glucose Reference Range is dependent on time and content of last meal. Glucose of more than 200 mg/dL in a nonstressed, ambulatory subject supports the diagnosis of Diabetes Mellitus. Serum or plasma potassium me asurement (moles/volume)Ordered By: Luis Alberto Carrasco on 09-20-2021 Potassium [Moles/Vol] 4.3 mmol/L 3.5-5.1 [facility] Serum or plasma sodium measu rement (moles/volume)Ordered By: Luis Alberto Carrasco on 09-20-2021 Sodium [Moles/Vol] 136 mmol/L 136-146 [facility] Serum or plasma total carbon dioxide measurement (moles/volume)Ordered By: Luis Alberto Carrasco on 09-20-2021 CO2 [Moles/Vol] 27.3 mmol/L 22.0-30.0 [facility] Serum or plasma urea nitroge n measurement (mass/volume)Ordered By: Luis Alberto Carrasco on 09-20-2021 Urea nitrogen [Mass/Vol] 16 mg/dL 9-23 [facility] Laboratory - Chemistry and C hemistry - challengeOrdered By: Ras Washburn on 09-04-2021 Cobalamin (Vitamin B12) [Mass/Vol] 315 pg/mL 180-914 [facility] TSH DL <= 0.005 mIU/L QnOrde red By: Ras Washburn on 09-04-2021 TSH Qn 1.49 m[IU]/L 0.45-5.33 [facility] Office Visit (Cardiology)on 09-01-2021 Follow-up visit Diagnoses/Problems Assessed ASCVD (arteriosclerotic cardiovascular disease) (429.2,440.9) (I25.10) History of PTCA (V45.82) (Z98.61) Hyperlipidemia (272.4) (E78.5) Hypertension (401.9) (I10) S/P CABG (coronary artery bypass graft) (V45.81) (Z95.1) [id number] Chronic obstructive pulmonary disease (496) (J44.9) Class [...] in adult Healthy Weight Tips; Status:Complete; Done: 17Szg2219 Hyperlipidemia Renew: Aspirin EC 81 MG Oral Tablet Delayed Release; TAKE 1 TABLET Daily SocHx: Former smoker Tobacco Use Screening; Status:Complete; Done: 23Ouy1238 Patient Instructions By signing my name below, I, Monserrat aPrekh LPN ,Monseibubaldo, attest that this documentation has been prepared [...] catheterization with stent placement History of Colonoscopy [id number] History of Coronary artery bypass graft [id number] History of Percutaneous transluminal coronary angioplasty Past [...] Cardiovascular: no (more content not included)... Normal [employer] Tobacco Screening.on 022 Adult depression screening assessment No [facility] 250 DO Work Phone: Fall risk assessment b) One or more fall s in the last year [facility] [employer] 250 DO Work Phone: Tobacco use status CPHS b) No [facility] [employer] 250 DO Work Phone: CNPNon 08-02-2021 CNPN Telephone (OPHTLN) VÍCTOR NICHOLS ([id number]) 1950 Date Time Provider Department 08/02/21 WANG RODRIGUES During your visit today, we recorded the following information about you: Adiel Lu 08/02/2021 2:[address] Reese's is referring patient to Dr. Rodrigues for a Yag and SLT Laser. Spoke to patient, he needs to speak with his daughter for his transportation and he will call back. Informed him days Dr. Rodrigues is in [place]. 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 Motor Man (topogram) images: No significant findings. ? Post-operative [...] - wallace (more content not included)... Normal [facility] CT BRAIN WO IVCONon 03-31-20 CT BRAIN WO IVCON * * *Final Report* * * DATE OF EXAM: Mar 31 2021 7:46AM [facility] 0504 - CT BRAIN WO IVCON / [...] reduction techniques were required COMPARISON: None. RESULT: Motor Man (topogram) images: No significant findings. Post-operative change: [...] are unremarkable. IMPRESSION: No acute intracranial process. Skein Tier: PSCB Transcribe Date/Time: Mar 31 2021 8:11A Dictated by : HENRIQUE OMER, DO This examination was interpreted and the report reviewed and electronically signed by: DANNY JOHNSTON MD on Mar 31 2021 9:26AM EST [id number] Normal [facility] CNOVon 03-06-2021 CNOV Office Visit (NREUS2 ) VÍCTOR NICHOLS ([id number]) 1950 M Date Time Provider Department 03/06/21 10:00 AM RONALD CASTRO NRANNIES2 During your visit today, we recorded the following information about you: Pulse Blood pressure Weight Height 79/minute 108/45 98.9 kg 1.6 m [facility] 03/06/2021 3:00 PM Signed Intake information documented in the prior visit with Dr. Javier De Santiago today. Ronald Castro MD 03/06/2021 3:00 PM Signed [facility] - NEW PATIENT EVALUATION Javier De Santiago [address] [facility] [address] De Santiago: Thank you for [...] PROMIS-10 Office Visit from 03/06/2021 in [facility] Physical [facility] T Score 32.4 Global Mental Health T Score 56 0-10 Standard Pain Scale 2 *PROMIS-10 scoring scale: mean = 50, over 50 is above average, under 50 is below average Review of Systems Constitutional: Negative. HENT: Negative. Eyes: Negative. 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 Cardiovascular: Negative. Gastrointestinal: Positive for abdominal [...] 6 ho (more content not included)... Normal [facility] CNOV Office Visit (NEADMN ) VÍCTOR NICHOLS ([id number]) 1950 M Date Time Provider Department 03/06/21 8:00 AM JAVIER DE SANTIAGO During your visit today, we recorded the following information about you: Pulse Blood pressure Weight Height 79/minute 108/45 98.9 kg 1.6 m Javier De Santiago MD, PhD 03/13/2021 6:35 PM Signed [facility] [place] March 06, 2021 Víctor Nichols Sr. Requesting Physician: LAM ANDREW [address] [place], [place] [address] [address] PCP: Tim Adams Jr. My recommendations will [...] Pulse 79 (more content not included)... Normal [facility] HISTORY PHYSICALon HISTORY PHYSICAL HNO ID: [id number] Author: Javier De Santiago MD, PhD Service: ? Author Type: Physician Type: HANDP Filed: 03/13/2021 6:35 PM Note Text: [facility] [place] March 06, 2021 Víctor Nichols Sr. Requesting Physician: [place] [address] PCP: Tim Adams Jr. My recommendations will [...] and stereognosis. (more content not included)... Normal [facility] XR CERVICAL 2V FLEX/EXTon XR CERVICAL 2V FLEX/EXT * * *Final Report* * * DATE OF EXAM: Mar 06 2021 11:17AM FELICE 5588 - XR CERVICAL 2V FLEX/EXT / PROCEDURE REASON: Spondylosis * * * * Physician Interpretation * * * * EXAMINATION: XR LUMBAR 4V AP/LAT/ FLEX/EXT, XR CERVICAL 2V FLEX/EXT HISTORY: Chronic low back and neck pain. TECHNIQUE: XR LUMBAR 4V AP/LAT/ FLEX/EXT, XR CERVICAL 2V FLEX/EXT weightbearing Laterality: NOT APPLICABLE Number of different views (projections): 4 (accession [id number]), 2 (accession [id number]) M: XB_1 COMPARISON: MRI lumbar spine 03/25/2014 [...] lumbar spine, multilevel. Low-grade spondylolisthesis of L4. Skein Tier: NARDA Transcribe Date/Time: Mar 06 2021 11:27A Dictated by : TASHA CASTANEDA MD This examination was interpreted and the report reviewed and electronically signed by: ARIES AVELAR MD on Mar 06 2021 11:47AM EST [id number] Normal [facility] XR HIP 2V JUDET VIEWSon 11-0 XR HIP 2V JUDET VIEWS * * *Final Report* * * DATE OF EXAM: Mar 06 2021 11:16AM [facility] 5350 - XR HIP 2V JUDET VIEWS [...] hips appear maintained. IMPRESSION: Bilateral hips maintained. Skein Tier: NARDA Transcribe Date/Time: Mar 06 2021 11:25A Dictated by : ARIES AVELAR MD This examination was interpreted and the report reviewed and electronically signed by: ARIES AVELAR MD on Nov 1 2021 11:26AM EST [id number] Normal [facility] XR LUMBAR 4V AP/LAT/ FLEX/EX Ton 03-06-2021 XR LUMBAR 4V AP/LAT/ FLEX/EXT * * *Final Report* * * DATE OF EXAM: Mar 06 2021 11:17AM [facility] 5231 - XR LUMBAR 4V AP/LAT/ FLEX/EXT [...] Number of different views (projections): 4 (accession [id number]), 2 (accession [id number]) M: XB_1 COMPARISON: MRI lumbar spine 03/25/2014 [...] lumbar spine, multilevel. Low-grade spondylolisthesis of L4. Skein Tier: PSCEstrella Transcribe Date/Time: Mar 06 2021 11:27A Dictated by : TASHA CASTANEDA MD This examination was interpreted and the report reviewed and electronically signed by: ARIES AVELAR MD on Mar 06 2021 11:47AM EST [id number] N Normal [facility] Sidra 02-28-2021 CNPN Telephone (NENMMN) VÍCTOR NICHOLS ([id number]) 1950 M Date Time Provider Department 02/28/21 JAVIER DE SANTIAGO During your visit today, we recorded the following information about you: Rey Farrell 02/28/2021 2:14 PM Signed Medical records received and scanned in Allergies As of Date: 02/28/2021 (Not on File) Date Reviewed: Never Reviewed Reason for Visit: Received Outside Medical Records [[id number]] Cmt: [facility] Problem List As Of Date: 02/28/2021 (None) Encounter Status:Closed by BLESSING MCCAULEY on 02/28/21 Normal [facility] XR NECK SOFT TISSUEon 2020 XR [...] by: CHILO SON Date: 2020-11-22 20:26 Normal [facility] Covid-19 PCR (CVDTBH)on EUA Statement SEE BELOW Normal [facility] Comment on above: Result Comment: This test is not yet approved or cleared by the [place] FDA. When there are no FDA-approved or cleared tests available, and other criteria are met, FDA can make tests available under an emergency access mechanism called an Emergency Use Authorization (EUA). The EUA for this test is supported by the [place] of Health and Human Service?s (HHS?s) declaration [...] consistent with SARS-CoV-2. Performed By: #### C VDTB #### [facility] [address] [place] [address] Yaya [place] SARS-CoV-2 (COVID-19) RNA BRIAN+probe Ql (Unsp spec) Not detected Normal NOT DETECTED [facility] Comment on above: Result Comment: This test is not yet approved or cleared by the [place] FDA. When there are no FDA-approved or cleared tests available, and other criteria are met, FDA can make tests available under an emergency access mechanism called an Emergency Use Authorization (EUA). The EUA for this test is supported by the [place] of Health and Human Service's (HHS's) declaration [...] longer be used). Performed By: #### C VDTB #### [facility] [address] [place] [address] Yaya [place] No Panel Information [facility] Vital Signs Date Time Vital Sign Value Performing Clinician Libia rehman 05-05-2024 13:55-0500 Body height 158.8 cm Joshua Dill DO Work Phone: [facility] 05-05-2024 13:55-0500 Body mass index (BMI) [Ratio] 39.42 kg/m2 Joshua Dill DO Work Phone: [facility] 05-05-2024 13:55-0500 Body weight 99.34 kg Joshua Dill DO Work Phone: [facility] 05-05-2024 13:55-0500 Diastolic blood pressure 64 mm[Hg] Joshua Dill DO Work Phone: [facility] 05-05-2024 13:55-0500 Heart rate 64 /min Joshua Dill DO Work Phone: [facility] 05-05-2024 13:55-0500 Systolic blood pressure 116 mm[Hg] Joshua Dill DO Work Phone: [facility] 01-14-2024 14:38-0400 Body height 165.1 cm [facility] 01-14-2024 14:38-0400 Body mass index (BMI) [Ratio] 35.3 kg/m2 [facility] 01-14-2024 14:38-0400 Body weight 96.21 kg [facility] 01-14-2024 14:38-0400 Diastolic blood pressure 70 mm[Hg] [facility] 01-14-2024 14:38-0400 Heart rate 67 /min [facility] 01-14-2024 14:38-0400 Respiratory rate 18 /min [facility] 01-14-2024 14:38-0400 SaO2% (BldA) [Mass fraction] 98 % [facility] 01-14-2024 14:38-0400 Systolic blood pressure 130 mm[Hg] [facility] 12-24-2023 13:27-0400 Body height 154.94 cm [facility] 12-24-2023 13:27-0400 Body mass index (BMI) [Ratio] 41 kg/m2 [facility] 12-24-2023 13:27-0400 Body weight 98.42 kg [facility] 12-24-2023 13:27-0400 Diastolic blood pressure 65 mm[Hg] [facility] 12-24-2023 13:27-0400 Heart rate 72 /min [facility] 12-24-2023 13:27-0400 Systolic blood pressure 115 mm[Hg] [facility] 10-01-2023 09:21-0400 Body height 165.1 cm MD Luis Alberto Carrasco Work Phone: [facility] 10-01-2023 09:21-0400 Body mass index (BMI) [Ratio] 36.4 kg/m2 MD Luis Alberto Carrasco Work Phone: [facility] 10-01-2023 09:21-0400 Body temperature 98.8 [degF] MD Luis Alberto Carrasco Work Phone: [facility] 10-01-2023 09:21-0400 Body weight 99.33 kg MD Luis Alberto Carrasco Work Phone: [facility] 10-01-2023 09:21-0400 Diastolic blood pressure 72 mm[Hg] MD Luis Alberto Carrasco Work Phone: [facility] 10-01-2023 09:21-0400 Heart rate 63 /min MD Luis Alberto Carrasco Work Phone: [facility] 10-01-2023 09:21-0400 Respiratory rate 20 /min MD Luis Alberto Carrasco Work Phone: [facility] 10-01-2023 09:21-0400 SaO2% (BldA) [Mass fraction] 98 % MD Luis Alberto Carrasco Work Phone: [facility] 10-01-2023 09:21-0400 Systolic blood pressure 139 mm[Hg] MD Luis Alberto Carrasco Work Phone: [facility] 09-24-2023 10:51-0400 Body height 158.8 cm Joshua Clark MD Work Phone: [facility] 09-24-2023 10:51-0400 Body mass index (BMI) [Ratio] 39.24 kg/m2 Joshua Clark MD Work Phone: [facility] 09-24-2023 10:51-0400 Body weight 98.88 kg Joshua Clark MD Work Phone: [facility] 09-24-2023 10:51-0400 Diastolic blood pressure 88 mm[Hg] Joshua Clark MD Work Phone: [facility] 09-24-2023 10:51-0400 Heart rate 68 /min Joshua Clark MD Work Phone: [facility] 09-24-2023 10:51-0400 Systolic blood pressure 136 mm[Hg] Joshua Clark MD Work Phone: [facility] 08-26-2023 09:55-0400 Body height 165.1 cm [facility] 08-26-2023 09:55-0400 Body mass index (BMI) [Ratio] 35.7 kg/m2 [facility] 08-26-2023 09:55-0400 Body weight 97.52 kg [facility] 08-26-2023 09:55-0400 Diastolic blood pressure 67 mm[Hg] [facility] 08-26-2023 09:55-0400 Heart rate 76 /min [facility] 08-26-2023 09:55-0400 Systolic blood pressure 120 mm[Hg] [facility] 07-15-2023 11:19-0400 Body height 165.1 cm [facility] 07-15-2023 11:19-0400 Body mass index (BMI) [Ratio] 34.9 kg/m2 [facility] 07-15-2023 11:19-0400 Body weight 95.42 kg [facility] 07-15-2023 11:19-0400 Diastolic blood pressure 77 mm[Hg] [facility] 07-15-2023 11:19-0400 Heart rate 83 /min [facility] 07-15-2023 11:19-0400 Systolic blood pressure 128 mm[Hg] [facility] 02-19-2023 11:00-0400 Body height 165.1 cm Ras Mejias Other [facility] Other 02-19-2023 11:00-0400 Body mass index (BMI) [Ratio] 35.77 kg/m2 Ras Mejias Other [facility] Other 02-19-2023 11:00-0400 Body temperature 98.6 [degF] Isaiassuzanne Hulldano Other [facility] Other 02-19-2023 11:00-0400 Body weight 97.52 kg Akiner Magalie Other [facility] Other 02-19-2023 11:00-0400 Diastolic blood pressure 69 mm[Hg] Isaiaspriyaer Magalie Other [facility] Other 02-19-2023 11:00-0400 Respiratory rate 20 /min Akiner Magalie Other [facility] Other 02-19-2023 11:00-0400 SaO2% (BldA) [Mass fraction] 94 % Ras Magalie Other [facility] Other 02-19-2023 11:00-0400 Systolic blood pressure 120 mm[Hg] Akiner Magalie Other [facility] Other 10-05-2022 10:00-0400 Body height 165.1 cm Luis Alberto Carrasco Other [facility] Other 10-05-2022 10:00-0400 Body mass index (BMI) [Ratio] 34.44 kg/m2 Luis Alberto Carrasco Other [facility] Other 10-05-2022 10:00-0400 Body weight 93.9 kg Luis Alberto Carrasco Other [facility] Other 10-05-2022 10:00-0400 Diastolic blood pressure 76 mm[Hg] Luis Alberto Carrasco Other [facility] Other 10-05-2022 10:00-0400 Systolic blood pressure 149 mm[Hg] Luis Alberto Carrasco Other [facility] Other 07-09-2022 13:15-0500 Body height 165.1 cm Christopher Magalie Other [facility] Other 07-09-2022 13:15-0500 Body mass index (BMI) [Ratio] 36.27 kg/m2 Christopher Magalie Other [facility] Other 07-09-2022 13:15-0500 Body temperature 97.4 [degF] Christopher Magalie Other [facility] Other 07-09-2022 13:15-0500 Body weight 98.88 kg Christopher Magalie Other [facility] Other 07-09-2022 13:15-0500 Diastolic blood pressure 80 mm[Hg] Christopher Magalie Other [facility] Other 07-09-2022 13:15-0500 Respiratory rate 20 /min Christopher Magalie Other [facility] Other 07-09-2022 13:15-0500 SaO2% (BldA) [Mass fraction] 98 % Christopher Magalie Other [facility] Other 07-09-2022 13:15-0500 Systolic blood pressure 126 mm[Hg] Christopher Magalie Other [facility] Other 09-01-2021 13:58-0400 Body height 157.48 cm Luis Alberto Carrasco Work Phone: [facility] 250 DO Work Phone: 09-01-2021 13:58-0400 Body mass index (BMI) [Ratio] 37.13 kg/m2 Luis Alberto Carrasco Work Phone: [facility] 250 DO Work Phone: 09-01-2021 13:58-0400 Body surface area Derived from formula 1.92 m2 Luis Alberto Carrasco Work Phone: [facility] 250 DO Work Phone: 09-01-2021 13:58-0400 Body weight 92.08 kg Luis Alberto Carrasco Work Phone: [facility] 250 DO Work Phone: 09-01-2021 13:58-0400 Diastolic blood pressure 78 mm[Hg] Luis Alberto Carrasco Work Phone: [facility] 250 DO Work Phone: 09-01-2021 13:58-0400 Heart rate 72 /min Luis Alberto Carrasco Work Phone: [facility] 250 DO Work Phone: 09-01-2021 13:58-0400 Systolic blood pressure 124 mm[Hg] Luis Alberto Carrasco Work Phone: [facility] DO Work Phone: 03-21-2021 16:45-0500 Body height 165.1 cm Ras Mejias Other [facility] Other 03-21-2021 16:45-0500 Body mass index (BMI) [Ratio] 35.44 kg/m2 Ras Mejias Other [facility] Other 03-21-2021 16:45-0500 Body temperature 97.9 [degF] Ras Romanno Other [facility] Other 03-21-2021 16:45-0500 Body weight 96.62 kg Ras Romanno Other [facility] Other 03-21-2021 16:45-0500 Diastolic blood pressure 60 mm[Hg] Ras Hulldano Other [facility] Other 03-21-2021 16:45-0500 Respiratory rate 20 /min Ras Romanno Other [facility] Other 03-21-2021 16:45-0500 SaO2% (BldA) [Mass fraction] 98 % Ras Romanno Other [facility] Other 03-21-2021 16:45-0500 Systolic blood pressure 112 mm[Hg] Ras Romanno Other [facility] Other 02-20-2021 14:30-0400 Body height 165.1 cm Lam Andrew Other [facility] Other 02-20-2021 14:30-0400 Body mass index (BMI) [Ratio] 35.44 kg/m2 Lam Andrew Other [facility] Other 02-20-2021 14:30-0400 Body weight 96.62 kg Lam Andrew Other [facility] Other Encounters Encounter Date Encounter Type Care Provider Facility Start: 05-19-2024 ambulatory JUSTINE Vines ty:ANNIE Samano Start: 05-12-2024 End: 05-15-2024 Telephone encounter Simone Nicho Maheshjay DO Work Phone: [facility] Comment on above: Surgery Start: 05-05-2024 End: 05-05-2024 Office outpatient visit 40 minutes Joshua Hickeydon DO Work Phone: [facility] Comment on above: ASCVD (arteriosclero tic cardiovascular disease); S/P CABG (coronary artery bypass graft); Edema, unspecified type; Shortness of breath; Diastolic dysfunction; History of PTCA; Hyperlipidemia, unspecified hyperlipidemia type; Essential hypertension; Chronic obstructive pulmonary disease, unspecified COPD type (Multi); Former smoker; BMI 39.0-39.9,adult Start: 05-05-2024 End: 05-05-2024 ambulatory [facility] Start: 04-17-2024 ambulatory [facility] Facility :[facility] Start: 01-15-2024 End: 01-15-2024 Bamela mendoza Jr. Simone Nicho Maheshjay DO Work Phone: [facility] Start: 01-15-2024 End: 01-15-2024 Bamela carlosheet Simone Nicho Maheshjay DO Work Phone: [facility] Start: 01-15-2024 End: 01-15-2024 Office outpatient visit 25 minutes Simone Nicho Santoyo DO Work Phone: [facility] Comment on above: Primary osteoarthrit is of left knee (Primary Dx); Acute pain of left knee Start: 01-15-2024 End: 01-15-2024 ambulatory SIMONE JEFFRIES Not Available Start: 01-14-2024 End: 01-14-[address] [facility] Work Phone: Start: 01-14-2024 End: 01-14-2024 Patient encounter procedure [facility] Work Phone: Start: 01-09-2024 Patient encounter procedure [facility] Start: 12-26-2023 Non-patient / Non-visit [facility] Work Phone: Start: 12-24-2023 End: 12-24-[address] [facility] Work Phone: Start: 12-24-2023 End: 12-24-2023 Patient encounter procedure [facility] Work Phone: Start: 12-18-2023 End: 12-18-2023 ambulatory SIMONE JEFFRIES Not Available Start: 10-30-2023 End: 10-30-2023 ambulatory SIMONE JEFFRIES Not Available Start: 10-01-2023 End: 10-01-2023 ambulatory MD Luis Alberto Carrasco Work Phone: [facility] Work Phone: Start: 10-01-2023 End: 10-01-2023 Patient encounter procedure MD Luis Alberto Carrasco Work Phone: [facility] Work Phone: Start: 09-25-2023 End: 09-25-2023 ambulatory SIMONE JEFFRIES Not Available Start: 09-24-2023 End: 09-24-2023 Office outpatient visit 25 minutes Joshua Clark MD Work Phone: [facility] Comment on above: ASCVD (arteriosclero tic cardiovascular disease) (Primary Dx); History of PTCA; Mixed hyperlipidemia; Essential hypertension; S/P CABG (coronary artery bypass graft); BMI 39.0-39.9,adult; Former smoker Start: 09-24-2023 End: 09-24-2023 ambulatory JOSHUA CLARK [facility] Amb[facility] Start: 09-16-2023 End: 09-16-2023 ambulatory SIMONE JEFFRIES Not Available Start: 08-30-2023 Non-patient / Non-visit MD Nayeli Carrasco Work Phone: [facility] Work Phone: Start: 08-29-2023 End: 08-29-2023 ambulatory Luis Alberto Carrasco Facility:[facility] Start: 08-29-2023 End: 08-29-2023 ambulatory MD Luis Alberto Carrasco Work Phone: [facility] Work Phone: Start: 08-29-2023 End: 08-29-2023 Patient encounter procedure MD Luis Alberto Carrasco Work Phone: [facility] [address] Work Phone: Start: 08-26-2023 End: 08-26-[address] [facility] Work Phone: Start: 08-26-2023 End: 08-26-2023 Patient encounter procedure [facility] Work Phone: Start: 08-20-2023 End: 08-20-2023 ambulatory MARYBETH MASON Not Available Start: 08-08-2023 End: 08-08-2023 ambulatory MARYBETH MASON Not Available Start: 07-15-2023 End: 07-15-2023 Patient encounter procedure [facility] Work Phone: Start: 07-12-2023 End: 07-12-2023 ambulatory PETER POE Not Available Start: 07-01-2023 End: 07-01-2023 ambulatory SIMONE JEFFRIES Not Available Start: 06-28-2023 End: 06-28-2023 ambulatory PETER POE Not Available Start: 06-14-2023 Chart abstracting Jr. Simone Santoyo DO Work Phone: [facility] Start: 06-11-2023 Refill Marybeth Mason [employer] Work Phone: [facility] Comment on above: Post-op pain (Primar y Dx) Start: 06-05-2023 End: 06-05-2023 ambulatory Luis Alberto Carrasco Other [facility] Other Start: 06-05-2023 Office outpatient vi sit 15 minutes Luis Alberto Carrasco [facility] Start: 05-31-2023 End: 05-31-2023 ambulatory PETER POE Not Available Start: 03-25-2023 End: 03-25-2023 ambulatory SIMONE JEFFRIES Not Available Start: 02-19-2023 End: 02-19-2023 ambulatory Ras Mejias Other [facility] Other Start: 02-19-2023 Office outpatient vi sit 25 minutes Ras Mejias [facility] Start: 11-16-2022 Chart abstracting Peter MARR Work Phone: [facility] Start: 11-01-2022 Chart Update Luis Alberto Carrasco Work Phone: [facility] [employer] 250 DO Work Phone: Start: 10-31-[address] Joshua Marr [facility] Facility:98 Start: 10-26-2022 Telephone encounter Luis Alberto tierney Work Phone: [facility] [employer] 250 DO Work Phone: Start: 10-15-2022 End: 10-15-2022 ambulatory Luis Alberto Carrasco Other [employer] Other Start: 10-15-2022 Telephone encounter Luis Alberto Carrasco [facility] Start: 10-05-2022 End: 10-05-2022 ambulatory Luis Alberto Carrasco Other [employer] Other Start: 10-05-2022 Office outpatient vi sit 15 minutes Luis Alberto Carrasco [facility] Start: 09-12-2022 End: 09-12-2022 ambulatory Luis Alberto Carrasco Other [employer] Other Start: 09-12-2022 Telephone encounter Luis Alberto Carrasco [facility] Start: 08-23-2022 End: 08-23-2022 ambulatory Luis Alberto Carrasco Other [employer] Other Start: 08-23-2022 Telephone encounter Luis Alberto Carrasco [facility] Start: 08-22-2022 (Televisit) Televisit Luis Alberto Carrasco [facility] Start: 08-22-2022 End: 08-22-2022 ambulatory Luis Alberto Carrasco Other [facility] Other Start: 07-09-2022 End: 07-09-2022 ambulatory Ras Mejias Other [facility] Other Start: 07-09-2022 Office outpatient vi sit 15 minutes Ras Mejias [facility] Start: 06-05-2022 Rx Renewal Luis Alberto Carrasco Work Phone: [facility] [place] DO Work Phone: Start: 12-27-2021 End: 12-27-2021 [...] procedure MD Luis Alberto Carrasco Work Phone: [facility] [address] Start: 09-04-2021 End: 09-04-2021 Patient encounter procedure MD Luis Alberto Carrasco Work Phone: [facility] Start: 09-01-2021 Office outpatient vi sit 25 minutes Luis Alberto Carrasco Work Phone: [facility] 537 DO Work Phone: Start: 03-30-2022 Telephone encounter Wang almanzar MD Work Phone: Ophthalmology Comment on above: Appointment Start: 06-19-2021 End: 06-19-2021 Patient encounter procedure MD Luis Alberto Carrasco Work Phone: [facility] [address] Start: 04-26-2021 Rx Renewal Luis Alberto Carrasco Work Phone: [facility] 250 DO Work Phone: Start: 03-21-2021 End: 03-21-2021 ambulatory Ras Mejias Other [facility] Other Start: 03-21-2021 Office outpatient vi sit 15 minutes Ras Mejias [facility] Start: 03-21-2021 AUDIT Luis Alberto Carrasco Work Phone: [facility] 250 DO Work Phone: Start: 02-28-2021 End: 02-28-2021 Telephone encounter Javier De Santiago MD, PhD Work Phone: Neurology Comment on above: Received Outside Med [facility] Records ([facility]) Start: 02-20-2021 Office outpatient ne w 45 minutes Lam Andrew [facility] Start: 01-20-2021 End: 01-21-[address] LUIS ALBERTO CARRASCO Facility:[facility] Start: 11-22-2020 End: 11-22-[address] IOANA CHRISTINA Facility:[facility] Start: 04-05-2020 End: 04-06-[address] LUIS ALBERTO CARRASCO Facility:[facility] Patient encounter status Luis Alberto Carrasco Work Phone: [facility] 250 DO Work Phone: Procedures Date Procedure Procedure Detail Performing Clinician Start: 01-15-2024 Radiologic examinati on knee 1/2 views Jr. Simone Santoyo DO Work Phone: Start: 08-29-2023 Plain X-ray of left wrist [...] Alberto Carrasco Work Phone: Comment on above: [id number]; Coronary artery bypa ss graft Luis Alberto Carrasco Work Phone: Comment on above: [id number]; History of coronary artery bypass grafting S/P CABG (coronary artery bypass graft) Luis Alberto Carrasco Work Phone: Comment on above: [id number]; History of coronary artery bypass grafting Hx of CABG MD Luis Alberto Carrasco Work Phone: History of coronary artery bypass grafting S/P CABG (coronary artery bypass graft) Joshua Clark MD Work Phone: History of coronary artery bypass grafting S/P CABG (coronary artery bypass graft) Joshua Dill DO Work Phone: History of percutane ous transluminal coronary angioplasty History of PTCA Luis Alberto Carrasco Work Phone: History of percutane ous transluminal coronary angioplasty History of PTCA Joshua Clark MD Work Phone: History of percutane ous transluminal coronary angioplasty History of PTCA Joshua Dill DO Work Phone: Percutaneous translu larissa coronary angioplasty Luis Alberto Carrasco Work Phone: Plan of Treatment Date Care Activity Detail Author Start: 09-22-2024 End: 09-22-2024 Patient encounter procedure 09/22/2024 2:10 PM EDT Office Visit [facility] [address] [facility] [facility] [address] [place] [address] Joshua Dill DO [address] [place] [address] [facility] Start: 05-19-2024 End: 05-05-2025 Basic metabolic 2000 panel - Serum or Plasma Basic Metabolic Panel Lab Routine Edema, unspecified type Expected: 05/19/2024 (Approximate), Expires: 05/05/2025 [facility] Work Phone: Comment on above: Expected: 05/19/2024 (Approximate), Expires: 05/05/2025 Start: 01-15-2024 End: 01-15-2024 Patient encounter procedure 01/15/2024 1:00 PM EDT Office Visit GANESH THOMAS [address] [place] [address] Jr. Simone Santoyo, DO [address] [facility] [address] [place] [address] Arrived [facility] Comment on above: Arrived Start: 01-05-2024 COVID-19 Vaccine ( season) COVID-19 Vaccine ( season) [facility] Start: 01-05-2024 Influenza vaccination [facility] Start: 11-21-2023 Lipid panel Lipid Panel [facility] Start: 06-28-2023 End: 06-28-2023 Patient encounter procedure 06/28/2023 9:00 AM EST Office Visit [facility] [address] [facility] [address] [place] [address] Peter Poe PA [address] [facility] [address] [place] [address] [facility] Start: 06-14-2023 End: 06-14-2023 Patient encounter procedure 06/14/2023 11:30 AM EST Procedure Visit [facility] Jr. Simone Santoyo DO [address] [facility] [address] [place] [address] [facility] Start: 04-17-2023 FUV, Provider: Joshua Clark, Status: Pen, Time: 3:30 PM FUV, Provider: Joshua Clark, Status: Pen, Time: 3:30 PM -[facility] 250 DO Work Phone: Start: 01-04-2023 COVID-19 Vaccine ( season) COVID-19 Vaccine ( season) [facility] Start: 10-31-2022 STRESS NUC, Provider : MICHELLE HHVI NUCLEAR ,[id number], Status: Pen, Time: 12:30 PM STRESS NUC, Provider: MICHELLE HHVI NUCLEAR ,[id number], Status: Pen, Time: 12:30 PM [facility] 250 DO Work Phone: Start: 08-03-2022 FUV, Provider: Joshua Clark, Status: Pen, Time: 1:40 PM FUV, Provider: Joshua Clark, Status: Pen, Time: 1:40 PM -[facility] 250 DO Work Phone: Start: 05-11-2022 FUV, Provider: Joshua Clark, Status: Pen, Time: 2:10 PM FUV, Provider: Joshua Clark, Status: Pen, Time: 2:10 PM -[facility] 250 DO Work Phone: Start: 03-06-2022 Adult depression screening assessment DEPRESSION SCREENING [facility] Start: 01-04-2022 Influenza vaccination [facility] Start: 06-19-2021 FUV, Provider: Joshua Clark, Status: Pen, Time: 8:00 AM FUV, Provider: Joshua Clark, Status: Pen, Time: 8:00 AM -[facility] 250 DO Work Phone: Start: 06-07-2021 FUV, Provider: Joshua Clark, Status: Pen, Time: 2:30 PM FUV, Provider: Joshua Clark, Status: Pen, Time: 2:30 PM -[facility] 250 DO Work Phone: Start: 05-06-2021 ADVANCE DIRECTIVE DISCUSSION ADVANCE DIRECTIVE DISCUSSION [facility] Start: 01-04-2021 Influenza vaccination INFLUENZA (#1) [facility] Start: 12-30-2016 Abdominal aortic aneurysm screening Abdominal Aortic Aneurysm (AAA) Screening [facility] Start: 12-30-2016 ADVANCE DIRECTIVE DISCUSSION ADVANCE DIRECTIVE DISCUSSION [facility] Start: 12-30-2016 PNEUMOCOCCAL: 65+ (1 - PCV) PNEUMOCOCCAL: 65+ (1 - PCV) [facility] Start: 12-30-2016 PNEUMOVAX AGE 65 AND OVER WITH 5YR LOOKBACK (#1) PNEUMOVAX AGE 65 AND OVER WITH 5YR LOOKBACK (#1) [facility] Start: 2011 RSV High Risk: (Elde rly (60+) or Population) (1 - Risk 60-74 years 1-dose series) RSV High Risk: (Elderly (60+) or Population) (1 - Risk 60-74 years 1-dose series) [facility] Start: 2011 RSV patient s and/or patients aged 60+ years (1 - 1-dose 60+ series) RSV patients and/or patients aged 60+ years (1 - 1-dose 60+ series) [facility] Start: 12-30-2001 SHINGRIX VACCINE (1 of 2) SHINGRIX VACCINE (1 of 2) [facility] Start: 12-30-2001 Zoster Vaccines (1 o f 2) Zoster Vaccines (1 of 2) [facility] Start: 12-30-1996 COLOGUARD (FIT-DNA) COLOGUARD (FIT-D NA) [facility] Start: 12-30-[address] [facility] Start: 12-30-1996 COLORECTAL CANCER SCREENING COLORECTAL CANCER SCREENING [facility] Start: 12-30-[address] COLONOGRAPHY [facility] Start: 12-30-1996 DIABETES SCREEN DIABETES SCREEN [facility] Start: 12-30-1996 FECAL OCCULT BLOOD FECAL OCCULT BLOO D [facility] Start: 12-30-1996 SIGMOIDOSCOPY SIGMOIDOSCOPY [facility] Start: 12-30-1986 LIPID SCREEN LIPID SCREEN [facility] Start: 12-30-1973 DTaP/Tdap/Td Vaccine s (1 - Tdap) DTaP/Tdap/Td Vaccines (1 - Tdap) [facility] Start: 12-30-1970 Urine microalbumin profile DTAP,TDAP,TD (1 - Tdap) [facility] Start: 12-30-1969 Diabetes mellitus screening Diabetes Screening [facility] Start: 12-30-1969 HEPATITIS C SCREENING HEPATITIS C [facility] Start: 12-30-1969 Hepatitis C screening Hepatitis C [facility] Start: 1963 Adult depression screening assessment DEPRESSION SCREENING [facility] Start: 1963 COVID-19 VACCINE (1) COVID-19 VACCIN E (1) [facility] Start: 12-30-1956 COVID-19 VACCINE (#1) COVID-19 VACCI NE (#1) [facility] Start: 12-30-1956 COVID-19 VACCINE (1) COVID-19 VACCIN E (1) [facility] Start: 07-02-1952 COVID-19 VACCINE (#1) COVID-19 VACCI NE (#1) [facility] Start: 1951 ABDOMINAL AORTIC ANEURYSM SCREENING ABDOMINAL AORTIC ANEURYSM SCREENING [facility] Start: 1951 Medicare Annual Wellness Visit Medicare Annual Wellness Visit (AWV) [facility] Start: 1950 Screening for malign ant neoplasm of colon [facility] Comprehensive metabo lic 1999 panel - Serum or Plasma [facility] Comprehensive metabo lic 1999 panel - Serum or Plasma [facility] Glucose measurement estimated from glycated hemoglobin [facility] Work Phone: Hemoglobin A1c/Hemoglobin.total in Blood [facility] Work Phone: Microalbumin [Mass/volume] in Urine [facility] XR Wrist - left GE [address] [facility] Immunization Date Immunization Notes Care Provider Joanne [email or web address] 02-18-2022 influenza virus vaccine, unspecified formulation Joshua Clark MD Work Phone: [facility] Work Phone: 02-18-2022 influenza, high dose seasonal, preservative-free Luis Alberto Carrasco Work Phone: [facility] [place] DO Work Phone: Comment on above: Series: 02-13-2022 influenza virus vaccine, split virus (incl. purified surface antigen) Ras Mejias Other [facility] Other 02-13-2022 influenza virus vaccine, unspecified formulation [facility] 05-06-2017 pneumococcal polysaccharide vaccine, 23 valent Luis Alberto Carrasco Work Phone: [facility] 250 DO Work Phone: 01-22-2017 pneumococcal conjuga te vaccine, 13 valent Luis Alberto Carrasco Work Phone: [facility] 250 DO Work Phone: 02-11-2015 influenza virus vaccine, unspecified formulation Luis Alberto Espinoza Carrasco Work Phone: [facility] 250 DO Work Phone: 02-03-2015 seasonal influenza, intradermal, preservative free Luis Alberto E Carrasco Work Phone: [place] [address] DO Work Phone: 04-27-2014 influenza, injectabl e, quadrivalent, contains preservative Luis Alberto E Carrasco Work Phone: [place] [address] DO Work Phone: 03-16-2014 influenza virus vaccine, unspecified formulation Luis Alberto E Carrasco Work Phone: [place] [address] DO Work Phone: 02-03-2013 influenza virus vaccine, unspecified formulation Luis Alberto E Carrasco Work Phone: [place] [address] DO Work Phone: 02-03-2013 influenza virus vaccine, whole virus Luis Alberto Espinoza Carrasco Work Phone: [place] [address] DO Work Phone: 02-03-2013 influenza, seasonal, injectable Jr. Stepanic DO Work Phone: [facility] 02-09-2009 influenza virus vaccine, whole virus Luis Alberto E Carrasco Work Phone: [facility] 250 DO Work Phone: 02-04-2008 pneumococcal polysaccharide vaccine, 23 valent Luis Alberto E Carrasco Work Phone: [facility] 250 DO Work Phone: 02-02-2005 pneumococcal polysaccharide vaccine, 23 valent Luis Alberto E Carrasco Work Phone: [facility] 250 DO Work Phone: influenza virus vaccine, unspecified formulation Luis Alberto E Carrasco Work Phone: [facility] 250 DO Work Phone: Comment on above: 2011 2009 2007 Payers Date Payer Category Payer Medicare (Managed Care) 1.2. [id number] 2022 Unknown 2021 Medicare DEVOTED MEDICARE DEVOTED HEALTH [id number] 2021-Present [phone] [address] [place] [address] O [id number] 2021 Medicare [id number] 2021 Unknown [id number] 2020 Unknown MMO MMO MEDICARE SUPPLEMENT [id number] 2020-Present Indemnity [id number]. [id number] 2007 Medicare [id number] 2006 Medicare MEDICARE MEDICAR E A AND B [id number] 2006-Present [place] Medicare [id number] 1959 Medicare [id number] 1959 Unknown [id number] 1951 Unknown [id number] 2.16.840.1.195421.3.579.2. 593 1951 Unknown [id number] 2.16.840.1.936215.3.579.2. 593 1951 Unknown [id number] 2.16.840.1.286376.3.579.2. 593 1951 Unknown [id number] 2.16.840.1.999753.3.579.2. 1068 1951 Unknown [id number] 2.16.840.1.524568.3.579.2. 1259 1951 Unknown [id number] 2.16.840.1.894997.3.579.2. 1259 1951 Unknown [id number] 2.16.840.1.657988.3.579.2. 125 1951 Unknown [id number] 2.16.840.1.971395.3.579.2. 1259 1951 Unknown [id number] 2.16.840.1.102262.3.579.2. 125 1951 Unknown [id number] 2.16.840.1.837799.3.579.2. 1258 1951 Unknown [id number] 2.16.840.1.229914.3.579.2. 125 1951 Unknown [id number] 2.16.840.1.532107.3.579.2. 1259 1951 Unknown [id number] 2.16.840.1.839894.3.579.2. 1259 1951 Unknown [id number] 2.16.840.1.606663.3.579.2. 1259 1951 Unknown [id number] 2.16.840.1.702755.3.579.2. 125 1951 Unknown [id number] 2.16.840.1.119091.3.579.2. 1259 1951 Unknown [id number] 2.16.840.1.320685.3.579.2. 1259 1951 Unknown [id number] 2.16.840.1.179979.3.579.2. 727 1951 Unknown [id number] 2.16.840.1.837829.3.579.2. 1244 1951 Unknown [id number] 2.16.840.1.626427.3.579.2. 1244 Self-pay Self Pay [id number] Unknown [id number] Unknown [id number] Unknown [id number] Social History Date Type Detail Facility Tobacco smoking status [facility] Unknown if ever smoked [facility] [place] Other Start: 1950 Sex Assigned At Not on file [facility] Start: 03-31-2021 End: 06-16-2023 Tobacco smoking status DCIS Ex-smoker [facility] Start: 04-09-2020 End: 05-06-2008 History of tobacco use Current smoker [facility] Start: 03-31-2021 End: 09-24-2023 Tobacco use and exposure Smokeless tobacco non-user [facility] Start: 03-31-2021 End: 01-15-2024 Alcohol intake Current drinker of alcohol (finding) [facility] Start: 03-06-2021 End: 04-12-2023 History SDOH Alcohol Comment occasionally [facility] Start: 03-25-2023 End: 01-15-2024 No illicit drug use No illicit drug use [place] [address] DO Work Phone: Comment on above: 1-2 cups of coffee d aily; occasionally; quit 2008; Start: 1950 Sex Assigned At [facility] Start: 03-25-2023 End: 01-15-2024 Sex Assigned At [facility] End: 05-06-2008 History of tobacco use Cigarette Smoker [facility] Start: 06-16-2023 Tobacco Comment Quit smoking > 10 years ago. [facility] Start: 09-14-2023 End: 2024 Exposure to SARS-CoV-2 (event) Not sure [facility] Start: 07-08-2023 Gender identity Identifies as male gender (finding) [facility] Clinical Notes 01-20-2021 to 05-14-2024 Telephone Encounter - MEKA Gregorio - 05/14/2024 10:45 AM ESTTelephone Encounter - MEKA Gregorio - 05/14/2024 10:45 AM ESTTelephone Encounter - Macey Durant - 05/12/2024 1:22 PM EST Note Date & Type Note Facility 05-14-2024 Telephone encounter Note Spoke to pt and he would like to hold off at this time scheduling surgery. He has an upcoming appt with Radiologist and would like to discuss surgery again with him before proceeding. He will call back when ready to schedule. [facility] 05-14-2024 Miscellaneous Notes Spoke to pt and he would like to hold off at this time scheduling surgery. He has an upcoming appt with Radiologist and would like to discuss surgery again with him before proceeding. He will call back when ready to schedule. Patient called stating his heart doctor, is having him put sx off until september. Any questions please call . documented in this encounter [facility] 05-12-2024 Telephone encounter Note Patient called stating his heart doctor, is having him put sx off until september. Any questions please call . [facility] 05-05-2024 History of Present illness Narrative Subjective Víctor Nichols Sr. is a 73 y.o. male Chief Complaint Follow-up 73-year-old gentleman here for routine follow-up with symptoms of shortness of breath and edema that has been going on for the past 1 year. He finally called and and scheduled the appointment for follow-up. He is a former patient of Dr. Clark'andrew whom I am now assuming cardiovascular management following his shelter Patient has a history of remote CABG, heart catheterization performed electively by myself in 2019 revealed patent LLAMAS-LAD and SVG-diagonal, patent [place] ramus branch (occluded graft to the ramus and (an occluded second OM branch that fills via left to left collaterals (occluded vein graft to the OM 2) and chronic subtotal occlusion of the nondominant RCA with preserved LV function overall. Subsequently, in 2022 he underwent stress perfusion imaging that was completely normal with normal ejection fraction. He remains on DAPT, isosorbide, lisinopril hydrochlorothiazide and metoprolol succinate. He has sleep apnea does not utilize CPAP due to increased history of pneumonias, sleeps upright in a chair unfortunately He denies angina or nitrate usage or hospitalizations. He has evidence of 3+ bilateral below the knee lower extremity edema, moderate obesity with abdominal weight gain and circumferential gain per his own report; the above symptoms of exertional dyspnea and edema and decreased ambulatory status. Additionally he is looking for preop clearance prior to knee replacement which will have to be placed on hold until we diurese some for his newly diagnosed HFpEF Current NYHA class III stage C HFpEF Recommendations, initiate furosemide 20 mg daily potassium 10 mill equivalents daily, obtain Chem-6 and 2 weeks follow-up with nurse practitioner in 4 months, I will see him again in 6 to 8 months Review of Systems Cardiovascular: Positive for chest pain and leg swelling. Respiratory: Positive for shortness of breath. Neurological: Positive for light-headedness. All other systems reviewed and are negative. Vitals: 05/05/24 1355 BP: 116/64 BP Location: Left arm Patient Position: Sitting Pulse: 64 Weight: 99.3 kg (219 lb) Height: 1.588 m (5' 2.5 ) [...] back: Normal range of motion. Right lower le+ Edema present. Left lower le+ Edema present. Skin: General: Skin is warm and dry. Neurological: General: No focal deficit present. Mental Status: He is alert. Psychiatric: Mood and Affect: Mood normal. Behavior: Behavior normal. Thought Content: Thought content normal. Judgment: Judgment normal. Allergies Morphine, Ranolazine, Spironolactone, Esdxbcl-kax-wfe reductase inhibitors, and Fentanyl Current Medications Current Outpatient Medications: albuterol 2.5 mg /3 mL (0.083 %) nebulizer solution, Take 3 mL (2.5 mg) by nebulization every 4 hours if needed., Disp: , Rfl: aspirin 81 mg EC tablet, Take 1 tablet (81 mg) by mouth once daily., Disp: , Rfl: atorvastatin (Lipitor) 40 mg tablet, Take 1 tablet (40 mg) by mouth once daily at bedtime., Disp: 90 tablet, Rfl: 3 bimatoprost (Lumigan) 0.03 % ophthalmic solution, Administer 1 drop into affected eye(s) once daily at bedtime., Disp: , Rfl: clopidogrel (Plavix) 75 mg tablet, Take 1 tablet (75 mg) by mouth once daily., Disp: 90 tablet, Rfl: 3 diazePAM (Valium) 2 mg tablet, Take 1 tablet (2 mg) by mouth 2 times a day as needed., Disp: , Rfl: isosorbide mononitrate ER (Imdur) 120 mg 24 hr tablet, Take 1 tablet (120 mg) by mouth once daily., Disp: 90 tablet, Rfl: 3 lisinopriL-hydrochlorothiazide 10-12.5 mg tablet, Take 1 tablet by mouth once daily., Disp: 90 tablet, Rfl: 3 metoprolol succinate XL (Toprol-XL) 25 mg 24 hr tablet, Take 1 tablet (25 mg) by mouth once daily., Disp: 90 tablet, Rfl: 3 nitroglycerin (Nitrostat) 0.4 mg SL tablet, Place under the tongue., Disp: , Rfl: omeprazole (PriLOSEC) [address] capsule, Take 1 capsule (20 mg) by mouth once daily., Disp: , Rfl: Spiriva Respimat 2.5 mcg/actuation inhaler, 2 puffs once daily., Disp: , Rfl: spironolactone (Aldactone) 25 mg tablet, Take 1 tablet (25 mg) by mouth once daily., Disp: 90 tablet, Rfl: 3 Assessment/Plan 1. ASCVD (arteriosclerotic cardiovascular disease) 2. S/P CABG (coronary artery bypass graft) 3. Edema, unspecified type 4. Shortness of breath 5. Diastolic dysfunction 6. History of PTCA 7. Hyperlipidemia, unspecified hyperlipidemia type 8. Essential hypertension 9. Chronic obstructive pulmonary disease, unspecified COPD type (Multi) 10. Former smoker 11. BMI 39.0-39.9,adult Scribe Attestation By signing my name below, I, Mavis Baker RN , Scribe attest that this documentation has been prepared under the direction and in the presence of Joshua Dill DO. Provider Attestation - Scribe documentation All medical record entries made by the Scribe were at my direction and personally dictated by me. I have reviewed the chart and agree that the record accurately reflects my personal performance of the history, physical exam, discussion and plan. documented in this encounter [facility] Work Phone: 05-05-2024 Instructions Mavis Henry RN - 05/05/2024 1:40 PM EST Please bring all medicines, vitamins, and herbal supplements with you when you come to the office. Prescriptions will not be filled unless you are compliant with your follow up appointments or have a follow up appointment scheduled as per instruction of your physician. Refills should be requested at the time of your visit. BMI was above normal measurement. Current weight: 99.3 kg (219 lb) Weight change since last visit (-) denotes wt loss 1 lbs Weight loss needed to achieve BMI 25: 80.4 Lbs Weight loss needed to achieve BMI 30: 52.7 Lbs Provided instructions on dietary changes Provided instructions on exercise. documented in this encounter [facility] Work Phone: 01-15-2024 History of Present illness Narrative Images from the original note were not included. HISTORY OF PRESENT ILLNESS: EST PT Víctor Nichols is an 73 y.o. @ male. (EST PT) RECHECK (L) KNEE ; S/P CORTISONE INJ 12/18/23 (4WKS) S/P (L) KNEE SCOPE 11/30/22 (~13.5 MONTHS) XRAYS DONE TODAY, 01/15/24 IN EPIC MRI 10/05/22 IN EPIC ; PRE-OP NO MDP / PREDNISONE ; POST-OP S/P CORTISONE INJ 12/18/23 ; POST-OP NO PHYSICAL THERAPY NO PAIN MGMT NOTES TEMP RELIEF FROM CORTISONE INJ. CONTINUES TO HAVE CONSTANT DISCOMFORT - MEDIAL ASPECT ; WORSE WITH AMBULATION. NOTES LIMITED ROM ; SOME WEAKNESS / INSTABILITY - USES CANE TO AMBULATE. NOTES DIFFICULT SLEEPING / WAKES HS NOTES SWELLING ; SOME MUSCLE CRAMPING ON THE (L) SIDE OF HIS BODY. NO PAIN MEDS. TAKES PLAVIX ; H/O OPEN HEART PREVIOUS (L) CTR 06/14/23, (R) CTR 07/26/23 ; - DR SANTOYO ALLERGIES: Allergies Allergen Reactions Fentanyl Itching and Rash Morphine Itching HOME MEDICATIONS: Current Outpatient Medications Medication Instructions albuterol (2.5 MG/3ML) 0.083% nebulizer solution albuterol sulfate 2.5 mg/3 mL (0.083 %) solution for nebulization aspirin 81 mg, Oral, Daily RT atorvastatin (LIPITOR) 40 mg, Oral, Nightly bimatoprost (Lumigan) 0.03 % ophthalmic solution Every 24 hours clopidogrel (Plavix) 75 MG tablet clopidogrel 75 mg tablet diazePAM (VALIUM) 2 mg, Every 24 hours donepezil (ARICEPT) 5 mg, Oral, Nightly isosorbide mononitrate ER (IMDUR) 120 mg, Oral, Daily lisinopril-hydroCHLOROthiazide 10-12.5 MG tablet lisinopril 10 mg-hydrochlorothiazide 12.5 mg tablet metoprolol succinate XL (TOPROL-XL) 25 mg, Oral, Daily nitroglycerin (Nitrostat) 0.4 MG SL tablet 1 tablet under tongue every 5 minutes for chest pain orally omeprazole (PriLOSEC) [address] capsule omeprazole 20 mg capsule,delayed release Spiriva Respimat 2.5 MCG/ACT inhaler USE 2 PUFFS DAILY spironolactone (Aldactone) 25 MG tablet Oral, Daily PHYSICAL EXAM: Knee Musculoskeletal Exam Gait Antalgic: left Limp: left Assistive device: cane Inspection Leg length disparity: no discrepancy Left Erythema: none Effusion: moderate Edema: mild Ecchymosis: none Deformity: mild Alignment: varus Previous incision: no previous incision Palpation Left Increased warmth: none Masses: none Crepitus: patellofemoral and medial Tenderness: present Medial joint line: moderate Patella: mild Range of Motion Left Active extension: 5 Active flexion: 115 Strength Left Extension: 5/5. Flexion: 5/5. Instability Left Instability signs: none - stable Varus stress grade: normal Valgus stress grade: normal Pivot shift: normal Anterior drawer: normal Posterior drawer: normal Dial test: normal Quad active test: normal Medial Hany test: negative Lateral Hany test: negative Nirav: negative Neurovascular Left Left knee neurovascular exam is normal. Patella reflex: 2/4 Pulses - DP: normal Dorsalis pedis: 2+ Pulses - PT: normal Posterior tibial: 2+ Capillary refill: brisk Special Signs Left Patellar compression: moderate Patellar apprehension: none Vitals: There is no height or weight on file to calculate BMI. Tobacco Use: Medium Risk (01/15/2024) Patient History Smoking Tobacco Use: Former Smokeless Tobacco Use: Unknown Passive Exposure: Not on file Alcohol Use: Not on file IMAGING: XR knee 1 or 2 views left Imaging Result: AP and lateral views of left knee showed severe varus deformity with wrdn-gl-omxe articulation to the medial joint line, flattening of the articular surfaces to the medial joint line lateral joint line and patellofemoral joint. Subchondral sclerosis was noted at the medial joint line surfaces as well as the lateral joint line and patellofemoral joint. Marginal osteophytic formation was noted tricompartmentally. There is no evidence of fracture or dislocation. Impression: severe degenerative joint disease left knee with varus deformity Procedures Orders Placed This Encounter Procedures XR knee 1 or 2 views left Order Specific Question: Reason for exam: Answer: PAIN ASSESSMENT: ICD-10-CM 1. Primary osteoarthritis of left knee M17.12 2. Acute pain of left knee M25.562 XR knee 1 or 2 views left PLAN: We have answered all the patients questions and explained the patients condition, decision making and plan including the risks and benefits associated with said plan in layman''s terms in a language the patient could understand easily. If patient''s symptoms significantly worsen and they cannot get a hold of us or their family physician, we have recommended that the patient proceed to the nearest emergency department (room). Dr. Santoyo obtained history and examined the patient, I am acting as scribe for Dr. Santoyo/chase, PLAN: we have discussed (L) knee xrays with patient at bedside, After examination of his left knee today we have discussed both surgical and nonsurgical intervention, with the risks and benefits of both. Patient is requesting a (L) TKA as the pain is affecting his ADLs - unable to ambulate prolong period of time. Patient is requesting to hold off until after February secondary to a vacation to [place] planned in February. He is understanding we will have to wait until at least mid March secondary to cortisone injection that he obtained in mid December. We have discussed his HEP and restrictions and will see him back on the day of sx. Surgery - (L) TKA We have discussed both surgical and nonsurgical treatment options with the patient at length and the risks and benefits associated with both. The patient is requesting surgical intervention because they have not responded to outpatient treatment options including but not limited to rest ice, and home exercise program. Pain and decreased range of motion are affecting the patient''s ability to sleep and activities of daily living and we have recommended surgical intervention. We recommended surgery in the form of a total knee arthroplasty. Factors, including the patient's age and longevity of prosthesis, usual postop course and possible need for revision in the future were discussed at length. We have discussed with the patient that this is a major orthopedic procedure. We discussed that the patient may require more than the average 30 MED limit and may require greater than 7 days narcotic treatment postoperatively. Therefore, patient's narcotic usage, will be tailored on an individual basis. If this patient at the time of surgery has any of the following comorbidities including but not limited to, history of falling, cognitive impairment, BMI greater than 30, end-stage renal disease, respiratory failure, heart failure, kidney failure, liver failure, diabetes, cardiac event in the last year, sleep apnea, bleeding disorder, excessive tobacco use, or if at the time of surgery the patient is greater than 80 years old, or requires discharged to a nursing home facility, the patient may require to have additional inpatient hospital stay following the surgery. Physical therapy is contraindicated in this patient's case because of pvnm-ej-yidm articulation of the patient's knee. Simone Santoyo D.O. documented in this encounter [facility] 09-24-2023 History of Present illness Narrative Subjective patient returns follow-up. Víctor Nichols is a 72 y.o. male Chief Complaint [...] normal. Judgment: Judgment normal. Allergies Morphine, Ranolazine, Zlyyrle-vey-mid reductase inhibitors, and Fentanyl Current Medications Current [...] Scribe Attestation By signing my name below, IBree LPN, Scribe attest that this documentation has been prepared [...] discussion and plan. documented in this encounter [facility] Work Phone: 09-24-2023 Instructions Keshia Mckeon [...] Prevention Education Given documented in this encounter [facility] Work Phone: 06-11-2023 Telephone encounter Note Post op pain rx. PDMP reviewed. [facility] 06-11-2023 Miscellaneous Notes Post op pain rx. PDMP reviewed. documented in this encounter [facility] 06-05-2023 Evaluation note Encounter Date Diagnosis Assessment Notes May, Acute non-recurrent maxillary sinusitis (ICD-10 - J01.00) Reviewed allergies and medications. ER if dyspnea worsens. Ask pharmacist which OTC would be best, jose armando w his cardiac meds. Víctor expresses understanding. [facility] 10-17-2023 Evaluation note* Encounter Date Diagnosis Assessment Notes Treatment Notes Treatment Clinical Notes Feb, Asthma, mild intermittent (ICD-10 - J45.20) [facility] 06-02-2023 Evaluation note* Encounter Date Diagnosis Assessment Notes Treatment Notes Treatment Clinical Notes Oct, Acute pain of left knee (ICD-10 - M25.562) Pt states he has not had an xray. Suspect this is why he is waiting on the MRI. Will check MRI at [facility] outpt imaging in [place]. Oct, Leg edema, left (ICD-10 - R60.0) Will recheck DVT US for reassurance as it has been more than a week and pt states edema and pain have increased. Pt will call [facility] Outpt imaging in [place] for appt - JOSE RAUL Oct, Right ear impacted cerumen (ICD-10 - H61.21) [facility] 04-19-2023 Evaluation note* Encounter Date Diagnosis Assessment Notes Treatment Notes Treatment Clinical Notes Aug, Bronchitis (ICD-10 - J40) Discussed diagnosis with patient. Patient to start Zithromax. Patient to take Zithromax daily with food as prescribed. Finish entire course of antibiotic. Has proair inhaler. Kjdt-ocp-xjqzpuv antipyretics as needed. Warning signs and symptoms reviewed with patient today. Patient to go immediately to the ER should she experience any of these. Patient to notify office should her symptoms persist and not improve. Patient verbalizes understanding and agrees to treatment plan. [facility] 03-06-2023 Evaluation note* Encounter Date Diagnosis Assessment Notes Treatment Notes Treatment Clinical Notes Jul, Dyspnea on exertion (ICD-10 - R06.09) [facility] 08-24-2022 NoteHNO ID: [id number] Author: Kristin Giraldo MD Service: ? Author [...] its relevant components. Kristin [facility] History of Present illness Narrative* Kristin [...] I have seen and examined Víctor Nichols .. I have discussed the case and the management of this patient's care with the Resident/Fellow, if applicable. I also have reviewed and agree with the assessment and plan as stated above and agree withall of its relevant components. Kristin Giraldo MD December 27, 2021 [facility] NoteHNO ID: [id number] Author: Kristin Giraldo MD Service: ? Author [...] its relevant components. Kristin Giraldo MD [facility] 13[facility] History of Present illness Narrative* Kristin [...] MD November 13, 2021 [facility] NoteHNO ID: [id number] Author: Kristin Giraldo MD Service: ? Author [...] its relevant components. Kristin Giraldo MD [facility] 09[facility] History of Present illness Narrative* Kristin [...] MD October 09, 2021 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 Reese's is referring patient to Dr. Rodrigues for a Yag and SLT Laser. Spoke to patient, he needs to speak with his daughter for his transportation and he will call back. Informed him days Dr. Lopez in [place]. [facility] NoteHNO ID: [id number] Author: Brisa Mari MD Service: ? Author Type: Physician Type: Progress Notes Filed: 05/10/2021 9:34 AM Note Text: Patient did not show to [facility]. Brisa Mari, [facility]11-26-2021 NoteHNO ID: [id number] Author: Javier De Santiago MD, PhD Service: ? Author Type: Physician Type: Progress Notes Filed: 04/10/2021 11:39 PM Note Text: Neurological [place] [facility] Consultation Follow-Up Visit March 31, [...] last time CT head reviewed indicating:RESULT: ? Motor Man (topogram) images: No significant findings. ? Post-operative [...] Javier De Santiago MD, PhD [place]: [address] [facility] [facility] NoteHNO ID: [id number] Author: RT Rober(Jenelle) Service: Radiology Author Type: Technologist Type: Progress [...] BY: RT Rober(R) March 31, 2021 7:46 [facility]11-01-2021 NoteHNO ID: [id number] Author: RT Michelle(Jenelle) Service: Radiology Author Type: Technologist Type: Progress [...] BY: RT Michelle(R) March 06, 2021 11:17 [facility]11-01-2021 NoteHNO ID: [id number] Author: Ronald Castro MD Service: ? Author Type: Physician Type: Progress Notes Filed: 03/06/2021 3:00 PM Note Text: [facility] - NEW PATIENT EVALUATION Javier De Santiago [address] [facility] [facility] [address] De Santiago: Thank you for [...] PROMIS-10 Office Visit from 03/06/2021 in [facility] T Score 32.4 Global Mental Health T Score 56 0-10 Standard Pain Scale 2 *PROMIS-10 scoring scale: mean = 50, over 50 is above average, under 50 is below average Review of Systems Constitutional: Negative. HENT: Negative. Eyes: Negative. 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 Cardiovascular: Negative. Gastrointestinal: Positive for abdominal [...] Medical and Surgical History: CAD s/p CABG, [place] x 2, HTN, CTS s/p surgery, neck pain s/p surgery Social History Tobacco Use - Smoking status: Never Smoker - Smokeless tobacco: Never Used Substance Us (more content not included)...[facility]11-01-2021 NoteHNO ID: [id number] Author: Vasile El Service: ? Author Type: ? Type: Progress Notes Filed: 03/06/2021 3:00 PM Note Text: Intake information documented in the prior visit with Dr. Javier De Santiago today.[facility]10-26-2021 Miscellaneous Notes* Telephone Encounter - Rey Farrell - 02/28/2021 2:08 PM EDT Medical records received and scanned in [facility]* Encounter Date Diagnosis Assessment Notes [...] has been taken off gabapentin by his clothes drier repairer and I would not renew this. I [...] as documented in the electronic medical record. 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 both eyes- Primary Preglaucoma, unspecified PCO (posterior capsular opacification), bilateral After-cataract, unspecified PCO (posterior capsular opacification), bilateral- Primary After-cataract, unspecified Glaucoma suspect of both eyes Preglaucoma, unspecified [facility] [employer] Other Evaluation note* Diagnosis Glaucoma 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 both eyes- Primary Preglaucoma, unspecified documented in this encounter [facility] noteNo InformationNort [employer] Other Evaluation note* Diagnosis Post-op pain- Primary Other acute postoperative pain [facility] Diagnosis Onset Date Resolution Status BPV (benign positional vertigo) acute Hypertension acute Left wrist pain acute Type 2 diabetes mellitus with hyperglycemia acute [facility] Work Phone: Evaluation note* Diagnosis ASCVD (arteriosclerotic cardiovascular disease)- Primary Unspecified cardiovascular disease History of PTCA Postsurgical percutaneous transluminal coronary angioplasty status Mixed hyperlipidemia Essential hypertension Unspecified essential hypertension S/P CABG (coronary artery bypass graft) Postsurgical aortocoronary bypass status BMI 39.0-39.9,adult Former smoker Personal history of tobacco use, presenting hazards to health documented in this encounter [facility] Work Phone: Evaluation note* Diagnosis Onset Date Resolution Status BPV (benign positional vertigo) acute Hypertension acute Left wrist pain acute Type 2 diabetes mellitus with hyperglycemia acute Asthma acute [facility] Work Phone: Evaluation note* Diagnosis Onset Date Resolution Status Asthma acute Hyperlipidemia acute Hypertension acute Type 2 diabetes mellitus with hyperglycemia acute [facility] Work Phone: Evaluation note* Diagnosis Onset Date Resolution Status Hyperlipidemia acute Hypertension acute Medicare annual wellness visit, subsequent acute Type 2 diabetes mellitus with hyperglycemia acute Pharyngitis acute [facility] Work Phone: Evaluation note* Diagnosis Primary osteoarthritis of left knee- Primary Acute pain of left knee documented in this encounter [facility] Healthcare[facility] note* Diagnosis ASCVD (arteriosclerotic cardiovascular disease) Unspecified cardiovascular disease S/P CABG (coronary artery bypass graft) Postsurgical aortocoronary bypass status Edema, unspecified type Shortness of breath Diastolic dysfunction Unspecified heart disease History of PTCA Postsurgical percutaneous transluminal coronary angioplasty status Hyperlipidemia, unspecified hyperlipidemia type Essential hypertension Unspecified essential hypertension Chronic obstructive pulmonary disease, unspecified COPD type (Multi) Former smoker Personal history of tobacco use, presenting hazards to health BMI 39.0-39.9,adult documented in this encounter [facility] Work Phone: History general Narrative - Reported* Type Description Date Medical History CAD Medical History VASQUEZ Medical History Hypertension Medical History Esophageal reflux Surgical History CABG 2005 Surgical History Neck Surgery 2002 Surgical History carpal tunnel release 2002 Surgical History pilonidal cyst 1979 Surgical History tonsillectomy 1968 Surgical History appendectomy 1972 Surgical History tear duct surgery 1976 Surgical History heart stents [employer] Other History [facility] [employer] Other History general Narrative - Reported* Type Description Date Medical History CAD Medical History VASQUEZ Medical History Hypertension Medical History Esophageal reflux Surgical History CABG 2005 Surgical History Neck Surgery 2001 Surgical History carpal tunnel release 2002 Surgical History pilonidal cyst 1979 Surgical History tonsillectomy 1968 Surgical History appendectomy 1972 Surgical History tear duct surgery 1976 Surgical History heart stents Hospitalization History SEE SURGICAL HX [facility] Other History general Narrative - Reported* Type Description Date Medical History CAD Medical History VASQUEZ Medical History Hypertension Medical History Esophageal reflux Surgical History CABG 2004 Surgical History Neck Surgery 2001 Surgical History carpal tunnel release 2002 Surgical History pilonidal cyst 1979 Surgical History tonsillectomy 1967 Surgical History appendectomy 1971 Surgical History tear duct surgery 1975 Surgical History heart stents Surgical History lt. knee arthroscopy 01/2023 ? Hospitalization History SEE SURGICAL HX [facility] Other History of Present illness NarrativePatient returns [...] calorie restricted diet with exercise and weight loss.[facility] [facility] DO Work Phone: Reason for referral (narrative)* Reason refer patient to F neurology for further evaluation of potential neurological disorder. Hx of tics, peripheral peristhesia upper and lower extremities, hyporeflexia, spasticity. Please eval jose raul Diagnosis 1 Simple tics (F95.9) Referral Organization [facility] Referring Provider First Name Lam Referring Provider Last Name Latanya Referring Provider Specialty Orthopedic Surgery Referred Organization [facility] Referred Address [address] [place] [place], [place],[address] Referred Provider Specialty Neurology Referral Priority Routine Backdoor [facility] Other Reason for referral (narrative)* Consultation (Routine) - Authorized Specialty Diagnoses / Procedures Referred By Lizy barakat Referred To Contact Cardiology Diagnoses ASCVD (arteriosclerotic cardiovascular disease) Procedures Follow Up In Cardiology Joshua Clark MD [address] [facility] [address], [address] [address] Joshua Dill DO [address] [facility], [address] [place] [address] Referral ID Status Reason Start Date Expiration Date V isits Requested Visits Authorized [id number] Authorized 09/24/2023 09/23/2024 1 1 [facility] Work Phone: Summary Purpose Family History [...] Hypertension Type 2 diabetes mellitus with hyperglycemia Chief Complaint MAWV sore throat Reason for Visit Hyperlipidemia Hypertension Medicare annual wellness visit, subsequent Type 2 diabetes mellitus with hyperglycemia Pharyngitis Reason for Referral Reason Dr. Rufina Coulter - dark hard cerumen occlusion on R eardrum. Diagnosis 1 Right ear impacted c erumen (H61.21) Referral Organization [facility] C daniel Referring Provider First Name Luis Alberto Referring Provider Last Name Danilo Referring Provider Specialty [facility] Referred Organization [facility] Referred Address ,[place], [place],[address] Referred Provider Specialty Ear, Nose an d Throat Referral Priority Routine Additional Source Comments (unrecognized sect ion and content) No Status Records FoundNo Status Records FoundNo Status Records FoundNo Status Records FoundNo Status Records FoundNo Status Records FoundNo Status Records FoundNo Status Records Found INFORMATION SOURCE (unrecogn ized section and content) DATE CREATED AUTHOR 02/06/2021 [facility] DATE CREATED AUTHOR AUTHOR'S ORGANIZ ATION 09/04/2021 [facility] DATE CREATED AUTHOR AUTHOR'S ORGANIZ ATION 01/01/2022 [facility] DATE CREATED AUTHOR AUTHOR'S ORGANIZ ATION 11/01/2022 [facility] DATE CREATED AUTHOR AUTHOR'S ORGANIZ ATION 08/31/2023 [facility] DATE CREATED AUTHOR AUTHOR'S ORGANIZ ATION 01/20/2024 [facility] EPIC DATE CREATED AUTHOR AUTHOR'S ORGANIZ ATION 04/26/2024 [facility] DATE CREATED AUTHOR AUTHOR'S ORGANIZ ATION 05/06/2024 [facility] Ambulatory Source Comments (unrecognize d section and content) In the event this informatio n is protected by the Federal Confidentiality of Alcohol and Drug Abuse Patient Records regulations: The Federal rules restrict any use of the information to criminally investigate or prosecute any alcohol or drug abuse patient.[facility] the event this information is protected by the Federal Confidentiality of Alcohol and Drug Abuse Patient Records regulations: The Federal rules restrict any use of the information to criminally investigate or prosecute any alcohol or drug abuse patient.[facility] the event this information is protected by the Federal Confidentiality of Alcohol and Drug Abuse Patient Records regulations: The Federal rules restrict any use of the information to criminally investigate or prosecute any alcohol or drug abuse patient.[facility] the event this information is protected by the Federal Confidentiality of Alcohol and Drug Abuse Patient Records regulations: The Federal rules restrict any use of the information to criminally investigate or prosecute any alcohol or drug abuse patient.[facility] the event this information is protected by the Federal Confidentiality of Alcohol and Drug Abuse Patient Records regulations: The Federal rules restrict any use of the information to criminally investigate or prosecute any alcohol or drug abuse patient.[facility] Reason for Visit (unrecogniz ed section and [...] Fast and OCT Reason Comments Follow-up 6m Reason Comments Pain Reason Comments Follow-up Patient request soon er OV for swelling and SOB Reason Onset Date Comments Surgery 05/12/2024 Care Teams (unrecognized sec tion and content) [...] August 26, 2023 End: August 26, 2023 Sheriffs Relationship Specialty Start Date End Date Tim Adams Jr. PCP - General 07/18/06 Lam Andrew DO Referring Emergency Medicine 02/23/21 Team Status: Inactive Member Role Status Dates Luis Alberto Carrasco MD Primary Care Provider Active Papa Washburn DO Attending Provider Active Team Status: Inactive Member Role Status Dates Luis Alberto Carrasco MD Primary Care Provider, Attending Sahra hyatt Active Sheriffs Relationship Specialty Start Date End Date Tim Adams Jr. PCP - General 07/18/06 Lam Andrew DO Referring Emergency Medicine 02/23/21 Sheriffs Relationship Specialty Start Date End Date Tim Adams Jr. PCP - General 07/18/06 Lam Andrew DO Referring Emergency Medicine 02/23/21 Sheriffs Relationship Specialty Start Date End Date Luis Alberto Carrasco MD [address] [facility] [place] [id number] PCP - General Family Medicine 09/18/22 Sheriffs Relationship Specialty Start Date End Date Luis Alberto Carrasco MD [address] [place] [address] PCP - General Family Medicine 09/18/22 Sheriffs Relationship Specialty Start Date End Date Luis Alberto Carrasco MD [address] [place] [address] PCP - General Family Medicine 09/18/22 Team Status: Inactive Member Role Status Dates Luis Alberto Carrasco MD Primary Care Provide r, Attending Provider Active Start: August 29, 2023 End: August 29, 2023 Sheriffs Relationship Specialty Start Date End Date Luis Alberto Carrasco MD [address] [place] [address] PCP - General 11/20/18 Team Status: Active Member Role Status Dates Luis Alberto Carrasco MD Primary Care Provide r, Attending Provider Active Start: August 30, 2023 Team Status: Inactive Member Role Status Dates Luis Alberto Carrasco MD Primary Care Provider Active Start: October 01, 2023 End: October 01, 2023 Kelly Daniel APRN [facility] Attending Provider Active Start: October 01, 2023 End: October 01, 2023 Team Status: Inactive Member Role Status Dates Luis Alberto Carrasco MD Primary Care Provide r, Attending Provider Active Start: December 24, 2023 End: December 24, 2023 Team Status: Active Member Role Status Dates Luis Alberto Carrasco MD Primary Care Provide r, Attending Provider Active Start: December 26, 2023 Team Status: Inactive Member Role Status Dates Luis Alberto Carrasco MD Primary Care Provider Active Start: January 14, 2024 End: January 14, 2024 Justine Reed APRN [employer] Attending Provider Active Start: January End: January 14, 2024 Sheriffs Relationship Specialty Start Date End Date Luis Alberto Carrasco MD [address] [place] [phone] PCP - General Family Medicine 09/18/22 Sheriffs Relationship Specialty Start Date End Date Luis Alberto Carrasco MD [address] [place] [phone] PCP - General Family Medicine 09/18/22 Sheriffs Relationship Specialty Start Date End Date Luis Alberto Carrasco MD [address] [place] [address] PCP - General 11/20/18 Goals (unrecognized section and content) Goals may [...] BE BASED ON THE PRIMARY CLINICAL RECORDS. [facility]. provides no warranty or guarantee of the accuracy or completeness of information in this document.
[2024-05-19 15:50] VITALS: BP 168/94
--- NOTE | 2024-05-19 15:51 | XR_ITS ---
The [address] [address] Patient Name: VÍCTOR NICHOLS MRN: [id number] date: 1950 Sex: M Assigned Patient Location: ER Current Patient Location: ED.MAIN Accession/Order Number: [id number] Exam Date: 05/19/2024 15:58 Report Date: 05/19/2024 16:17 At the request of: NEW SOUZA Procedure: XR shoulder LT min 2V PROCEDURE: XR shoulder LT min 2V HISTORY: Pain, fell on ice ; left shoulder pain COMPARISON: None. FINDINGS: BONES:No fracture or dislocation. Mild degenerative changes of acromioclavicular joint. SOFT TISSUES:No visible soft tissue swelling. EFFUSION:None visible. OTHER: Mechanical fusion of lower cervical spine. Prior sternotomy. XR/XR shoulder LT min 2V IMPRESSION: 1. No acute bone abnormality of the left shoulder. Mild degenerative changes. Electronically authenticated by: CHILO ROBLES Date: 05/19/2024 16:17
--- NOTE | 2024-05-19 15:53 | ED_ITS ---
HPI HPI - Extremity Injury (Upper) General Chief Complaint: Extremity Injury, Upper Stated Complaint: LEFT SHOULDER PAIN Time Seen by Provider: 05/19/24 15:46 Source: patient Mode of arrival: walk-in History of Present Illness HPI narrative: 73-year-old male presents for left shoulder pain. Shortly before coming into the emergency department he slipped on ice and fell and landed on her shoulder. He points to the superior aspect of the shoulder to indicate area of pain and he felt a popping sensation. He also landed on his knee but he is not concerned about that. He is able to ambulate and states he needs surgery on it. The shoulder hurts more if he moves it. Related Data Allergies Allergy/AdvReac Type Severity Reaction Status Date / Time morphine Allergy Severe Unknown Verified 05/19/24 15:50 Opioid HPI Opioid Management Most Recent Pain and Opioid Data: No Data to Display Review of Systems ROS Narrative A ten point review of systems is negative except as noted above. Exam Narrative Exam Narrative: Nurses note and vital signs reviewed and patient is not hypoxic. General: The patient appears well and in no apparent distress. Patient is comfortably on cart. Skin: Warm, dry, no pallor noted. There is no rash noted. Head: Normocephalic, atraumatic Eye: Normal conjunctiva, no drainage Ears, Nose, Mouth, and Throat: oral mucosa is moist. Nares patent. Cardiovascular: Regular Rate and Rhythm Respiratory: Patient is in no distress, no accessory muscle use Back: non-tender GI: Nontender Musculoskeletal: The left arm is examined. There is no deformity. There is no bruise or abrasion. He has good range of motion of the shoulder. The left elbow and wrist are nontender. Radial pulse 2+ and fingers have full range of motion. Neurological: A&O, normal speech Psychiatric: Cooperative Constitutional Vital Signs, click to edit/add: Last Vital Signs Temp 98.1 F 05/19/24 15:46 Pulse 78 05/19/24 15:46 Resp 20 05/19/24 15:46 BP 168/94 H 05/19/24 15:50 Pulse Ox 97 05/19/24 15:46 O2 Del Method Room Air 05/19/24 15:46 Course Vital Signs Vital signs: Vital Signs Temperature 98.1 F 05/19/24 15:46 Pulse Rate 78 05/19/24 15:46 Respiratory Rate 20 01/14/25 15:46 Pulse Oximetry 97 05/19/24 15:46 Oxygen Delivery Method Room Air 05/19/24 15:46 Temperature 98.1 F 05/19/24 15:46 Pulse Rate 78 05/19/24 15:46 Respiratory Rate 20 05/19/24 15:46 Blood Pressure 168/94 H 05/19/24 15:50 Pulse Oximetry 97 05/19/24 15:46 Oxygen Delivery Method Room Air 05/19/24 15:46 MDM - Extremity Injury (Upper) MDM Narrative Medical decision making narrative: X-ray of the shoulder per radiologist is negative. He has full range of motion of his shoulder and I do not suspect rotator cuff tear. There is no evidence of fracture. He will use ice and Motrin and follow-up with his physician if symptoms worsen. Treatment diagnosis and follow-up were discussed with the patient. Differential Diagnosis Differential diagnosis: Likely other (Contusion, fracture, rotator cuff injury) Imaging Data Left shoulder: Radiologist's impression: ITS Impressions Shoulder X-Ray 05/19/24 15:51 IMPRESSION: 1. No acute bone abnormality of the left shoulder. Mild degenerative changes. Electronically authenticated by: CHILO ROBLES Date: 05/19/2024 16:17 Discharge Plan Discharge Chief Complaint: Extremity Injury, Upper Clinical Impression: Contusion of left shoulder Patient Disposition: Home, Self-Care Time of Disposition Decision: 16:26 Condition: Good Mode of Transportation: Private Vehicle Print Language: [place] Citizen Instructions: Contusion in Adults (ED), Shoulder Pain (ED) Referrals: Anisa Johnson MD [Primary Care Provider] - 1 week
--- NOTE | 2024-05-19 15:53 | PC.NURSE ---
Pain to left shoulder, able to move left arm without difficulty, no swelling, redness or bruising noted.
== END 2024-05-19 16:45 | disposition home or self-care (01) ==
PROVIDERS: Emergency Provider Emergency Medicine; PCP Family Medicine
DX: S40.012A Contusion of left shoulder, initial encounter (principal); W00.0XXA Fall on same level due to ice and snow, initial encounter; M25.512 Pain in left shoulder; R06.09 Other forms of dyspnea
CPT/HCPCS: 36415; 73030; 80048; 99283

== ENCOUNTER 2024-05-19 16:43 | Outpatient (OUT) | payer OTHER, SELFPAY ==
--- OUTSIDE RECORDS SUMMARY | 2024-05-19 17:04 | XMS_ITS | CCD ---
Author Organization [facility] Care Team Providers Care Chief Of Staff Doctor Name Role Phone [place], DR TRIPLETT Attending [...] Provider Unava ilable Lam Andrew (Hist) Unavailable [phone] Luis Alberto Carrasco Unavailable Unavailable Unavailable Lam Andrew DO Unavailable MD Luis Alberto Carrasco Primary Care Provider MD Luis Alberto Carrasco Attending Provider [phone] DO Papa Washburn Attending Provider [phone] MD Luis Alberto Carrasco Primary Care Provider MD Luis Alberto Carrasco Attending Provider [phone] Lam Andrew Unavailable Ras Mejias Unavailable Tim Adams Jr. Primary Care Provider Unava ilLam Musa DO Unavailable [phone] Luis Alberto Carrasco Unavailable Amber MACK, Dr. Joshua Alcantar Referring Unavailable Amber MACK, Dr. Joshua Alcantar Attending Unavailable Danilo, Dr. Luis Alberto Jacobs Primary Care Unav Luis Alberto Roque MD Primary Care Provider [phone] MD Luis Alberto Carrasco Primary Care Provider MD Luis Alberto Carrasco Attending Provider [phone] Luis Alberto Carrasco Attending Unavailable Luis Alberto Carrasco Admitting Unavailable Luis Alberto Carrasco Primary Care Unavailable Luis Alberto Carrasco MD Primary Care Provider PETER POE Attending Unavailable STEPJR. JAY, SIMONE [...] ble STEPANIC, JRJessica, SIMONE Torre Referring Unavaila JUSTINE Gonzales Attending Unavailable LUIS ALBERTO CARRASCO Referring Unavailable JOSHUA CLARK Attending Unavailable LUIS ALBERTO CARRASCO Primary Care Unavailable JOSHUA DILL Attending Unavailable LUIS ALBERTO CARRASCO Primary Care Unavailable Allergies Allergy Classification Reported Allergen(s) Allergy Type Date of Onset Reaction(s) Facility (20 sources) fentaNYL; Translations: [Duragesic-100 PT72] Drug Allergy 9 Rash, Itching [facility] (7 sources) Hmg-Coa Reductase Inhibitors (Statins); Translations: [Statins] Allergy to drug (finding) Hives [facility] 250 DO Work Phone: (20 sources) Morphine; Translations: [morphine] Drug Allergy 5 Itching [facility] (11 sources) ranolazine; Translations: [Ranexa] Drug Allergy [address] [facility] 250 DO Work Phone: (8 sources) fentaNYL; Translations: [FENTANYL] Drug Allergy 0 Itching, Itching, Comment:Freetex t Needs Updated. [facility] (14 sources) Duragesic-75 Drug allergy 4 Unknown, [facility] (7 sources) atorvastatin Drug Allergy 6 Unknown, [facility] (7 sources) venlafaxine Drug Allergy 4 Comment:tired, no appetite [facility] (2 sources) Duragesic-100 Drug allergy 5 Comment:Freetex t Needs Updated. [facility] Other (6 sources) ranolazine; Translations: [RANOLAZINE] Drug Allergy 3 [facility] (3 sources) HMG-CoA reductase inhibitor; Translations: [SGGFEPV-TFL-VHN REDUCTASE INHIBITORS] Drug Allergy 3 [facility] Work Phone: (3 sources) vilanterol Drug Allergy 4 [facility] (2 sources) Spironolactone; Translations: [SPIRONOLACTONE] Drug Allergy 4 GI Upset, Myalgia [facility] Work Phone: Medications Current Medications Medication Drug Class(es) Dates Sig (Normalized) Sig (Original) [id number] 200 actuat albuterol 0.09 mg/actuat metered dose [...] 1 puff(s) by inhalation once daily Tiotropium [place] (Spiriva Respimat) 2.5 mcg/actuation mist Active 2 [...] 2.5 ug by inhalation once daily Tiotropium [place] (Spiriva Respimat) 2.5 mcg/actuation mist Discontinued 2.5 MCG INHALATION Daily October 25, 2019 12:00am September 23, 2023 9:31am Start: 10-25-2019 End: 10-25-2019 Tiotropium [place] (Spiriva Respimat) 2.5 mcg/actuation mist Discontinued INHALATION October 25, 2019 12:00am October 25, 2019 7:34am Start: 02-14-2018 take 2 puff(s) by in halation once daily Spiriva Respimat 2.5 MCG/ACT 2 puffs Inhalation Once a day for 30 days Feb, Active Start: 02-14-2018 Start: 10-27-2017 End: 05-29-2018 take 1 capsule by inhalation once daily Tiotropium [place] (Spiriva With Handihaler) 18 mcg Capsule, W/Inhalation [...] Start: 03-06-2021 take 1 capsule by [facility] once daily venlafaxine ER (EFFEXOR XR) 37.5 mg 24 hr capsule Take 1 capsule by mouth once daily. Take 1 capsule daily for 1 week then increase to 2 capsules daily for 1 week then increase to 150 mg capsules and continue on that dose 21 capsule 0 03/06/2021 Active Comment on above: Take 1 capsule by mo [facility] once daily. Take 1 capsule daily for 1 week then increase to 2 capsules daily for 1 week then increase to 150 mg capsules and continue on that dose Take 1 capsule by mo [facility] once daily. Completed/Discontinued Medications Medication Drug Class(es) [...] left knee showed severe varus deformity with [id number] articulation to the medial joint line, flattening [...] joint disease left knee with varus deformity [facility] Radiology Study observation (narrative) [facility] Basophils Auto (Bld) [#/Vol] on 12-26-2023 Basophils (Bld) [#/Vol] 0.1 10 3/uL 0.0-0.1 [facility] Basophils/100 WBC Auto (Bld) on 12-26-2023 Basophils/100 WBC (Bld) 0.9 % 0.2-2.0 [facility] Cholesterol in LDL Calc [Mas s/Vol]on 12-26-2023 Cholesterol in LDL [Mass/Vol] 85.8 mg/dL [facility] Comment on above: <100 mg/dl [id number] 0-129 mg/dl NEAR OR ABOVE [id number] mg/dl BORDERLINE [id number] mg/dl HIGH>190 mg/dl VERY HIGH Cholesterol in VLDL Calc [Ma ss/Vol]on 12-26-2023 Cholesterol in VLDL [Mass/Vol] 8.2 mg/dL [facility] Eosinophils/100 WBC Auto (Bl d)on 12-26-2023 Eosinophils/100 WBC (Bld) 3.5 % 0.9-7.0 [facility] Erythrocyte distribution wid th Auto (RBC) [Ratio]on 12-26-2023 Erythrocyte distribution width (RBC) [Ratio] 12.4 % 11.0-15.0 [facility] Estimated glomerular filtrat ion rate (GFR) non- Americanon 12-26-2023 GFR/1.73 sq M.predicted among non-blacks MDRD (S/P/Bld) [Vol rate/Area] mL/min/{1.73_m2} >=60 [facility] Globulin Calc (S) [Mass/Vol] on 12-26-2023 Globulin (S) [Mass/Vol] 3.2 g/dL [facility] Glucose mean value [Mass/vol ume] in Blood Estimated from glycated hemoglobinon 12-26-2023 Average glucose Estimated from glycated hemoglobin (Bld) [Mass/Vol] 128 mg/dL [facility] Hematocrit Auto (Bld) [Volum e fraction]on 12-26-2023 Hematocrit (Bld) [Volume fraction] 45.9 % 42.0-54.0 [facility] Hemoglobin [Mass/volume] in Bloodon 08-22-2024 Hemoglobin (Bld) [Mass/Vol] 14.7 g/dL 14.0-18.0 [facility] Laboratory - Chemistry and C hemistry - challengeon 12-26-2023 Albumin [Mass/Vol] 3.8 g/dL 3.4-5.0 [facility] ALP [Catalytic activity/Vol] 66 U/L 46-116 [facility] ALT [Catalytic activity/Vol] 33 U/L 16-63 [facility] AST [Catalytic activity/Vol] 15 U/L 15-37 [facility] Bilirubin [Mass/Vol] 0.3 mg/dL 0.2-1.0 [facility] Calcium [Mass/Vol] 8.8 mg/dL 8.5-10.1 [facility] Chloride [Moles/Vol] 104 mmol/L 98-107 [facility] Cholesterol [Mass/Vol] 152 mg/dL <=200 [facility] Cholesterol in HDL [Mass/Vol] 58 mg/dL 40-60 [facility] Comment on above: > or =60 mg/dl - LOW CARDIOVASCULAR RISK<40 mg/dl - HIGH CARDIOVASCULAR RISK CO2 [Moles/Vol] 30.7 mmol/L 21.0-32.0 [facility] Creatinine [Mass/Vol] 0.97 mg/dL 0.70-1.30 [facility] GFR/1.73 sq M.predicted MDRD (S/P/Bld) [Vol rate/Area] mL/min/{1.73_m2} >=60 [facility] Glucose [Mass/Vol] 93 mg/dL 74-106 [facility] Potassium [Moles/Vol] 4.5 mmol/L 3.5-5.1 [facility] Protein [Mass/Vol] 7.0 g/dL 6.4-8.2 [facility] Sodium [Moles/Vol] 140 mmol/L 136-145 [facility] Triglyceride [Mass/Vol] 41 mg/dL <=150 [facility] TSH Qn 1.818 m[IU]/L 0.358-3.740 [facility] Urea nitrogen [Mass/Vol] 21.0 mg/dL High 7.0-18.0 [facility] Urea nitrogen/Creatinine [Mass ratio] 21.6 mg/mg [facility] Laboratory - Hematology and Cell countson 12-26-2023 HbA1c (Bld) [Mass fraction] 6.1 % 4.5-6.2 [facility] Comment on above: ADA RECOMMENDED LIMI T 4.0 - 6.0ADA THERAPEUTIC TARGET < 7.0ACTION SUGGESTED> 7.0 Immature granulocytes/100 WBC (Bld) 0.3 % 0.0-0.5 [facility] Leukocytes [#/volume] correc nick for nucleated erythrocytes in Blood by Automated counon 12-26-2023 WBC corrected for nucl RBC Auto (Bld) [#/Vol] 6.8 10 3/uL 4.0-11.0 [facility] Lymphocytes Auto (Bld) [#/Vo l]on 12-26-2023 Lymphocytes (Bld) [#/Vol] 2.1 10 3/uL 1.2-3.8 [facility] Lymphocytes/100 WBC Auto (Bl d)on 12-26-2023 Lymphocytes/100 WBC (Bld) 30.3 % 20.5-60.0 [facility] MCH Auto (RBC) [Entitic mass ]on 12-26-2023 MCH (RBC) [Entitic mass] 30.4 pg 25.9-34.0 [facility] MCHC Auto (RBC) [Mass/Vol]on 12-26-2023 MCHC (RBC) [Mass/Vol] 32.0 g/dL 29.9-35.2 [facility] MCV Auto (RBC) [Entitic vol] on 12-26-2023 MCV (RBC) [Entitic vol] 95.0 fL High 80.0-94.0 [facility] Monocytes Auto (Bld) [#/Vol] on 12-26-2023 Monocytes (Bld) [#/Vol] 0.8 10 3/uL 0.3-0.8 [facility] Monocytes/100 WBC Auto (Bld) on 12-26-2023 Monocytes/100 WBC (Bld) 12.0 % 1.7-12.0 [facility] Neutrophils Auto (Bld) [#/Vo l]on 12-26-2023 Neutrophils (Bld) [#/Vol] 3.6 10 3/uL 1.4-6.5 [facility] Neutrophils/100 WBC Auto (Bl d)on 12-26-2023 Neutrophils/100 WBC (Bld) 53.0 % 43.0-75.0 [facility] No Panel Informationon 12-25 Eosinophils # (Auto) 0.2 10 3/uL 0.0-0.7 [facility] Immature Granulocyte # (Auto) 0.02 10 3/uL 0.00-0.03 [facility] Prostate Specific Antigen Screen 5.33 ng/mL High <=4.00 [facility] Platelet mean volume Auto (B ld) [Entitic vol]on 12-26-2023 Platelet mean volume (Bld) [Entitic vol] 11.2 fL 9.5-13.5 [facility] Platelets Auto (Bld) [#/Vol] on 12-26-2023 Platelets (Bld) [#/Vol] 234 10 3/uL 150-450 [facility] RBC Auto (Bld) [#/Vol]on RBC (Bld) [#/Vol] 4.83 10 6/uL 4.70-6.10 [facility] Serum or plasma albumin/glob ulin mass ratioon 12-26-2023 Albumin/Globulin [Mass ratio] 1.2 {ratio} [facility] Serum or plasma anion gap de terminationon 12-26-2023 Anion gap [Moles/Vol] 9.8 mmol/L [facility] Serum or plasma total choles terol/high density lipoprotein (HDL) cholesterol mass lorenza 12-26-2023 Cholesterol.total/Chol esterol in HDL [Mass ratio] 2.6 {ratio} [facility] Comment on above: 3.3 - 4.4 [...] non-blacks MDRD (S/P/Bld) [Vol rate/Area] mL/min/{1.73_m2} >=60 [facility] Globulin Calc (S) [Mass/Vol] on 08-30-2023 Globulin (S) [Mass/Vol] 3.3 g/dL [facility] Glucose mean value [Mass/vol ume] in Blood Estimated from glycated hemoglobinon 08-30-2023 Average glucose Estimated from glycated hemoglobin (Bld) [Mass/Vol] 126 mg/dL [facility] Laboratory - Chemistry and C hemistry - challengeon 08-30-2023 Albumin [Mass/Vol] 3.8 g/dL 3.4-5.0 [facility] ALP [Catalytic activity/Vol] 60 U/L 46-116 [facility] ALT [Catalytic activity/Vol] 31 U/L 16-63 [facility] AST [Catalytic activity/Vol] 19 U/L 15-37 [facility] Bilirubin [Mass/Vol] 0.5 mg/dL 0.2-1.0 [facility] Calcium [Mass/Vol] 8.8 mg/dL 8.5-10.1 [facility] Chloride [Moles/Vol] 102 mmol/L 98-107 [facility] CO2 [Moles/Vol] 26.7 mmol/L 21.0-32.0 [facility] Creatinine [Mass/Vol] 1.16 mg/dL 0.70-1.30 [facility] GFR/1.73 sq M.predicted MDRD (S/P/Bld) [Vol rate/Area] mL/min/{1.73_m2} >=60 [facility] Glucose [Mass/Vol] 115 mg/dL 74-106 [facility] Potassium [Moles/Vol] 4.2 mmol/L 3.5-5.1 [facility] Protein [Mass/Vol] 7.1 g/dL 6.4-8.2 [facility] Sodium [Moles/Vol] 139 mmol/L 136-145 [facility] Urea nitrogen [Mass/Vol] 18.0 mg/dL 7.0-18.0 [facility] Urea nitrogen/Creatinine [Mass ratio] 15.5 mg/mg [facility] Laboratory - Hematology and Cell countson 08-30-2023 HbA1c (Bld) [Mass fraction] 6.0 % 4.5-6.2 [facility] Comment on above: ADA RECOMMENDED LIMI T 4.0 - 6.0ADA THERAPEUTIC TARGET < 7.0ACTION SUGGESTED> 7.0 Microalbumin [Mass/volume] i n Urineon 08-30-2023 Albumin DL <= 20 mg/L (U) [Mass/Vol] mg/dL <=30.0 [facility] No Panel Informationon 08-29 Urine Random Creatinine 63.67 mg/dL 20.00-300.00 [facility] Serum or plasma albumin/glob ulin mass ratioon 08-30-2023 Albumin/Globulin [Mass ratio] 1.2 {ratio} [facility] Serum or plasma anion gap de terminationon 08-30-2023 Anion gap [Moles/Vol] [facility]5 [facility] microalbumin/creatinin e mass ratioon 08-30-2023 Albumin/Creatinine DL <= 20 mg/L (U) [Mass ratio] 20.4 mg/g 0.0-29.9 [facility] Comment on above: NO MICROALBUMINURIA 0-29 MG/GCLINICAL MICROALBUMINURIA 30-300 MG/GMACROALBUMINURIA >300 MG/G XR wrist LT min 3V*on 2023 XR wrist LT min 3V* [place] [address] XRay Report Signed Patient: Víctor Nichols SR MR#: [id number] : 1950 Acct:[id number] Age/Sex: 72 / M ADM Date: 08/29/23 Loc: X Room: Type: [facility] Attending Dr: Luis Alberto Carrasco MD [...] Chad Scales M.D.08/29/2023 8:40 PM Dictation Location: [place] [address] Transcribed By: [facility] 08/29/232039 Dictated By: Chad Scales II, MD 08/29/232036 Signed By: 08/29/232039 Normal [facility] CARDIAC STRESS/REST ALICIA Kennedy 10-31-2022 [facility] CARDIAC STRESS/REST INJECTION Patient Name: VÍCTOR NICHOLS STUDY: MYOCARDIAL PERFUSION STRESS TEST WITH LEXISCAN Performing facility: [facility], [address] [place] [address], [address], [address] Provider: Helen Clark MD, [facility] PCP: Dr. Alize Carrasco Supervising provider: Helen Clark MD, [facility] INDICATION: ASCVD Hx PTCA Diastolic dysfunction Hx CABG Pre-operative risk assessment for Knee surgery scheduled at [facility] on . HISTORY: Gender: M; Age: 71 y/o ; Height: 157.48 cm; Weight: 96.6839007 kg. CAD; High Cholesterol; Previous NM; HTN; COPD; Quit smoking 14 years ago. Cardiac catheterization on 2007, 2013, 2017, 2018, 2019. PTCA on 2007. CABG on 2004. COMPARISON: Previous nuclear testing completed at [facility]. ACCESSION NUMBER(S): [id number]; [id number]; [id number] ORDERING CLINICIAN: JOSHUA CLARK TECHNIQUE: ONE DAY [...] Electronically signed by: SEEMA CLIFFORD MD [facility] No Panel Informationon 10-31 Normal -[facility] 250 DO Work Phone: Creatinine and Glomerular fi ltration rate.predicted panel (S/P/Bld)Ordered By: Luis Alberto Carrasco on 09-20-2021 Creatinine [Mass/Vol] 1.16 mg/dL 0.64-1.27 [facility] Estimated glomerular filtrat ion rate (GFR) non- AmericanOrdered By: Luis Alberto Carrasco on 09-20-2021 GFR/1.73 sq M.predicted among non-blacks MDRD (S/P/Bld) [Vol rate/Area] > 60 mL/Min [facility] No Panel InformationOrdered By: Luis Alberto Carrasco on 09-20-2021 Estimated GFR () > 60 mL/Min [facility] Comment on above: GFR estimated refere nce range: According to KDOQI guidelines, <60 ml/min/1.73m2 is sufficient to diagnose a patient with chronic kidney disease. Pharmacy Creatinine Clearance (Chem N/A [facility] Serum or plasma calcium vadim urement (mass/volume)Ordered By: Luis Alberto Carrasco on 09-20-2021 Calcium [Mass/Vol] 9.2 mg/dL 8.2-10.2 [facility] Serum or plasma chloride sheri surement (moles/volume)Ordered By: Luis Alberto Carrasco on 09-20-2021 Chloride [Moles/Vol] 100 mmol/L 95-114 [facility] Serum or plasma glucose vadim urement (mass/volume)Ordered By: Luis Alberto Carrasco on 09-20-2021 Glucose [Mass/Vol] 112 mg/dL 70-100 [facility] Comment on above: ADA recommended refe rence range Random Glucose Reference Range is dependent on time and content of last meal. Glucose of more than 200 mg/dL in a nonstressed, ambulatory subject supports the diagnosis of Diabetes Mellitus. Serum or plasma potassium me asurement (moles/volume)Ordered By: Luis Alberto Carrasco on 09-20-2021 Potassium [Moles/Vol] 4.3 mmol/L 3.5-5.1 [facility] Serum or plasma sodium measu rement (moles/volume)Ordered By: Luis Alberto Carrasco on 09-20-2021 Sodium [Moles/Vol] 136 mmol/L 136-146 [facility] Serum or plasma total carbon dioxide measurement (moles/volume)Ordered By: Luis Alberto Carrasco on 09-20-2021 CO2 [Moles/Vol] 27.3 mmol/L 22.0-30.0 [facility] Serum or plasma urea nitroge n measurement (mass/volume)Ordered By: Luis Alberto Carrasco on 09-20-2021 Urea nitrogen [Mass/Vol] 16 mg/dL 9-23 [facility] Laboratory - Chemistry and C hemistry - challengeOrdered By: Ras Washburn on 09-04-2021 Cobalamin (Vitamin B12) [Mass/Vol] 315 pg/mL 180-914 [facility] TSH DL <= 0.005 mIU/L QnOrde red By: Ras Washburn on 09-04-2021 TSH Qn 1.49 m[IU]/L 0.45-5.33 [facility] Office Visit (Cardiology)on 09-01-2021 Follow-up visit Diagnoses/Problems Assessed ASCVD (arteriosclerotic cardiovascular disease) (429.2,440.9) (I25.10) History of PTCA (V45.82) (Z98.61) Hyperlipidemia (272.4) (E78.5) Hypertension (401.9) (I10) S/P CABG (coronary artery bypass graft) (V45.81) (Z95.1) [id number] Chronic obstructive pulmonary disease (496) (J44.9) Class [...] in adult Healthy Weight Tips; Status:Complete; Done: [id number] Hyperlipidemia Renew: Aspirin EC 81 MG Oral Tablet Delayed Release; TAKE 1 TABLET Daily SocHx: Former smoker Tobacco Use Screening; Status:Complete; Done: [id number] Patient Instructions By signing my name below, I, Monserrat Parekh LPN ,Monseibubaldo, attest that this documentation has [...] catheterization with stent placement History of Colonoscopy [id number] History of Coronary artery bypass graft 28Myv1261 History of Percutaneous transluminal coronary angioplasty Past [...] Screening.on 022 Adult depression screening assessment No [facility] 250 DO Work Phone: Fall risk assessment b) One or more fall s in the last year [facility] 250 DO Work Phone: Tobacco use status CPHS b) No [facility] 250 DO Work Phone: CNPNon 08-02-2021 CNPN Telephone (OPHTLN) VÍCTOR NICHOLS ([id number]) 1950 Date Time Provider Department 08/02/21 WANG [...] Informed him days Dr. Rodrigues is in [place]. 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 08/02/2021 3:12 PM Signed Patient has been [...] Of Date: 08/02/2021 (None) Encounter Status:Closed by [facility] PATIENT PRESIDENT OF THE UNITED STATESSHAQ on 08/02/21 Normal [facility] CNOVon 03-31-2021 CNOV Office Visit (NEADMN ) SIMONEVÍCTOR ([id number]) 1950 M Date Time Provider Department 03/31/21 10:30 AM JAVIER DE SANTIAGO During your visit today, we recorded the following information about you: Pulse Blood pressure Weight Height 81/minute 154/70 97.1 kg 1.575 m Javier De Santiago MD, PhD 04/10/2021 11:39 PM Signed [facility] Consultation Follow-Up Visit March 31, [...] last time CT head reviewed indicating:RESULT: ? Manager New Product (topogram) images: No significant findings. ? Post-operative [...] Itching Date Reviewed: 03/31/2021 Reviewed by: Ade eWbb LPN - Fully Assessed Reason for Visit: [...] - wallace (more content not included)... [facility] CT BRAIN WO IVCONon 03-31-20 CT BRAIN WO IVCON * * *Final Report* * * DATE OF EXAM: Mar 31 2021 7:46AM [facility] [address] - CT BRAIN WO IVCON / [...] reduction techniques were required COMPARISON: None. RESULT: Manager New Product (topogram) images: No significant findings. Post-operative change: [...] are unremarkable. IMPRESSION: No acute intracranial process. Chemical Strength Tester: PSCB Transcribe Date/Time: Mar 31 2021 8:11A Dictated by : HENRIQUE OMER, DO This examination was interpreted and the report reviewed and electronically signed by: DANNY JOHNSTON MD on Mar 31 2021 9:26AM EST [id number] [facility] CNOVon 03-06-2021 CNOV Office Visit (NREUS2 ) VÍCTOR NICHOLS ([id number]) 1950 M Date Time Provider Department 03/06/21 10:00 AM RONALD CASTRO NRANNIES2 During your visit today, we recorded the following information about you: Pulse Blood pressure Weight Height 79/minute 108/45 98.9 kg 1.6 m [facility] 03/06/2021 3:00 PM Signed Intake information documented in the prior visit with Dr. Javier De Santiago today. Ronald Castro MD 03/06/2021 3:00 PM Signed [facility] - NEW PATIENT EVALUATION Javier De Santiago [phone] [facility] [id number] De Santiago: Thank you for [...] PROMIS-10 Office Visit from 03/06/2021 in [facility] T Score 32.4 Global Mental Health T Score 56 0-10 Standard Pain Scale 2 *PROMIS-10 scoring scale: mean = 50, over 50 is above average, under 50 is below average Review of Systems Constitutional: Negative. HENT: Negative. Eyes: Negative. 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 Cardiovascular: Negative. Gastrointestinal: Positive for abdominal [...] 6 ho (more content not included)... [facility] CNOV Office Visit (NEADMN ) VÍCTOR NICHOLS ([id number]) 1950 M Date Time Provider Department 03/06/21 8:00 AM JAVIER DE SANTIAGO During your visit today, we recorded the following information about you: Pulse Blood pressure Weight Height 79/minute 108/45 98.9 kg 1.6 m Javier De Santiago MD, PhD 03/13/2021 6:35 PM Signed [facility] March 06, 2021 Víctor Nichols Sr. Requesting Physician: LAM ANDREW [address] [place], [place] [address] [address] PCP: Tim Adams Jr. My recommendations will [...] Pulse 79 (more content not included)... [facility] HISTORY PHYSICALon HISTORY PHYSICAL HNO ID: [id number] Author: Javier De Santiago MD, PhD Service: ? Author Type: Physician Type: HANDP Filed: 03/13/2021 6:35 PM Note Text: [facility] March 06, 2021 Víctor Nichols Sr. Requesting Physician: [place] [address] PCP: Tim Adams Jr. My recommendations will [...] and stereognosis. (more content not included)... [facility] XR CERVICAL 2V FLEX/EXTon XR CERVICAL [...] Number of different views (projections): 4 (accession [id number]), 2 (accession [id number]) M: XB_1 COMPARISON: MRI lumbar spine 03/25/2014 [...] lumbar spine, multilevel. Low-grade spondylolisthesis of L4. Chemical Strength Tester: NARDA Transcribe Date/Time: Mar 06 2021 11:27A Dictated by : TASHA CASTANEDA MD This examination was interpreted and the report reviewed and electronically signed by: ARIES AVELAR MD on Mar 06 2021 11:47AM EST [id number] Normal [facility] XR HIP 2V JUDET VIEWSon 11-0 [...] hips appear maintained. IMPRESSION: Bilateral hips maintained. Chemical Strength Tester: NARDA Transcribe Date/Time: Mar 06 2021 11:25A Dictated by : ARIES AVELAR MD This examination was interpreted and the report reviewed and electronically signed by: RAIES AVELAR MD on Nov 1 2021 11:26AM EST [id number] Normal [facility] XR LUMBAR 4V AP/LAT/ FLEX/EX Ton [...] Number of different views (projections): 4 (accession [id number]), 2 (accession [id number]) M: XB_1 COMPARISON: MRI lumbar spine 03/25/2014 [...] lumbar spine, multilevel. Low-grade spondylolisthesis of L4. Chemical Strength Tester: PSCEstrella Transcribe Date/Time: Mar 06 2021 11:27A Dictated by : TASHA CASTANEDA MD This examination was interpreted and the report reviewed and electronically signed by: ARIES AVELAR MD on Mar 06 2021 11:47AM EST [id number] N Normal [facility] Sidra 02-28-2021 CNPN Telephone (NENMMN) VÍCTOR NICHOLS ([id number]) 1950 M Date Time Provider Department 02/28/21 JAVIER DE SANTIAGO During your visit today, we recorded the following information about you: Rey Farrell 02/28/2021 2:14 PM Signed Medical records received and scanned in Allergies As of Date: 02/28/2021 (Not on File) Date Reviewed: Never Reviewed Reason for Visit: Received Outside Medical Records [[id number]] Cmt: [facility] Problem List As Of Date: 02/28/2021 (None) Encounter Status:Closed by BLESSING MCCAULEY on 02/28/21 Normal [facility] XR NECK SOFT TISSUEon 2020 XR [...] by: CHILO SON Date: 2020-11-22 20:26 Normal [facility] Covid-19 PCR (CVDTBH)on EUA Statement SEE BELOW Normal [facility] Comment on above: Result Comment: This test is not yet approved or cleared by the [place] FDA. When there are no FDA-approved or cleared tests available, and other criteria are met, FDA can make tests available under an emergency access mechanism called an Emergency Use Authorization (EUA). The EUA for this test is supported by the [place] of Health and Human Service?s (HHS?s) declaration [...] SARS-CoV-2. Performed By: #### C VDTB #### [facility] [address] [place] [id number] Yaya [place] SARS-CoV-2 (COVID-19) RNA BRIAN+probe Ql (Unsp spec) Not detected Normal NOT DETECTED [facility] Comment on above: Result Comment: This test is not yet approved or cleared by the [place] FDA. When there are no FDA-approved or cleared tests available, and other criteria are met, FDA can make tests available under an emergency access mechanism called an Emergency Use Authorization (EUA). The EUA for this test is supported by the [place] of Health and Human Service's (HHS's) declaration [...] used). Performed By: #### C VDTB #### [facility] [address] [place] [address] Yaya [place] No Panel Information [facility] Vital Signs Date Time Vital Sign Value Performing Clinician Libia rehman 05-05-2024 13:55-0500 Body height 158.8 cm Joshua Dill DO Work Phone: [facility] 05-05-2024 13:55-0500 Body mass index (BMI) [Ratio] 39.42 kg/m2 Joshua Dill DO Work Phone: [facility] 05-05-2024 13:55-0500 Body weight 99.34 kg Joshua Dill DO Work Phone: [facility] 05-05-2024 13:55-0500 Diastolic blood pressure 64 mm[Hg] Joshua Dill DO Work Phone: [facility] 05-05-2024 13:55-0500 Heart rate 64 /min Joshua Dill DO Work Phone: [facility] 05-05-2024 13:55-0500 Systolic blood pressure 116 mm[Hg] Joshua Dill DO Work Phone: [facility] 01-14-2024 14:38-0400 Body height 165.1 cm [facility] 01-14-2024 14:38-0400 Body mass index (BMI) [Ratio] 35.3 kg/m2 [facility] 01-14-2024 14:38-0400 Body weight 96.21 kg [facility] 01-14-2024 14:38-0400 Diastolic blood pressure 70 mm[Hg] [facility] 01-14-2024 14:38-0400 Heart rate 67 /min [facility] 01-14-2024 14:38-0400 Respiratory rate 18 /min [facility] 01-14-2024 14:38-0400 SaO2% (BldA) [Mass fraction] 98 % [facility] 01-14-2024 14:38-0400 Systolic blood pressure 130 mm[Hg] [facility] 12-24-2023 13:27-0400 Body height 154.94 cm [facility] 12-24-2023 13:27-0400 Body mass index (BMI) [Ratio] 41 kg/m2 [facility] 12-24-2023 13:27-0400 Body weight 98.42 kg [facility] 12-24-2023 13:27-0400 Diastolic blood pressure 65 mm[Hg] [facility] 12-24-2023 13:27-0400 Heart rate 72 /min [facility] 12-24-2023 13:27-0400 Systolic blood pressure 115 mm[Hg] [facility] 10-01-2023 09:21-0400 Body height 165.1 cm MD Luis Alberto Carrasco Work Phone: [facility] 10-01-2023 09:21-0400 Body mass index (BMI) [Ratio] 36.4 kg/m2 MD Luis Alberto Carrasco Work Phone: [facility] 10-01-2023 09:21-0400 Body temperature 98.8 [degF] MD Luis Alberto Carrasco Work Phone: [facility] 10-01-2023 09:21-0400 Body weight 99.33 kg MD Luis Alberto Carrasco Work Phone: [facility] 10-01-2023 09:21-0400 Diastolic blood pressure 72 mm[Hg] MD Luis Alberto Carrasco Work Phone: [facility] 10-01-2023 09:21-0400 Heart rate 63 /min MD Luis Alberto Carrasco Work Phone: [facility] 10-01-2023 09:21-0400 Respiratory rate 20 /min MD Luis Alberto Carrasco Work Phone: [facility] 10-01-2023 09:21-0400 SaO2% (BldA) [Mass fraction] 98 % MD Luis Alberto Carrasco Work Phone: [facility] 10-01-2023 09:21-0400 Systolic blood pressure 139 mm[Hg] MD Luis Alberto Carrasco Work Phone: [facility] 09-24-2023 10:51-0400 Body height 158.8 cm Joshua Clark MD Work Phone: [facility] 09-24-2023 10:51-0400 Body mass index (BMI) [Ratio] 39.24 kg/m2 Joshua Clark MD Work Phone: [facility] 09-24-2023 10:51-0400 Body weight 98.88 kg Joshua Clark MD Work Phone: [facility] 09-24-2023 10:51-0400 Diastolic blood pressure 88 mm[Hg] Joshua Clark MD Work Phone: [facility] 09-24-2023 10:51-0400 Heart rate 68 /min Joshua Clark MD Work Phone: [facility] 09-24-2023 10:51-0400 Systolic blood pressure 136 mm[Hg] Joshau Clark MD Work Phone: [facility] 08-26-2023 09:55-0400 Body height 165.1 cm [facility] 08-26-2023 09:55-0400 Body mass index (BMI) [Ratio] 35.7 kg/m2 [facility] 08-26-2023 09:55-0400 Body weight 97.52 kg [facility] 08-26-2023 09:55-0400 Diastolic blood pressure 67 mm[Hg] [facility] 08-26-2023 09:55-0400 Heart rate 76 /min [facility] 08-26-2023 09:55-0400 Systolic blood pressure 120 mm[Hg] [facility] 07-15-2023 11:19-0400 Body height 165.1 cm [facility] 07-15-2023 11:19-0400 Body mass index (BMI) [Ratio] 34.9 kg/m2 [facility] 07-15-2023 11:19-0400 Body weight 95.42 kg [facility] 07-15-2023 11:19-0400 Diastolic blood pressure 77 mm[Hg] [facility] 07-15-2023 11:19-0400 Heart rate 83 /min [facility] 07-15-2023 11:19-0400 Systolic blood pressure 128 mm[Hg] [facility] 02-19-2023 11:00-0400 Body height 165.1 cm Ras Mejias Other [employer] Other 02-19-2023 11:00-0400 Body mass index (BMI) [Ratio] 35.77 kg/m2 Ras Mejias Other [facility] Other 02-19-2023 11:00-0400 Body temperature 98.6 [degF] Isaiassuzanne Hulldano Other [employer] Other 02-19-2023 11:00-0400 Body weight 97.52 kg Akiner Magalie Other [employer] Other 02-19-2023 11:00-0400 Diastolic blood pressure 69 mm[Hg] Isaiaspriyaer Magalie Other [employer] Other 02-19-2023 11:00-0400 Respiratory rate 20 /min Akiner Magalie Other [employer] Other 02-19-2023 11:00-0400 SaO2% (BldA) [Mass fraction] 94 % Ras Magalie Other [facility] Other 02-19-2023 11:00-0400 Systolic blood pressure 120 mm[Hg] Akiner Magalie Other [employer] Other 10-05-2022 10:00-0400 Body height 165.1 cm Luis Alberto Carrasco Other [employer] Other 10-05-2022 10:00-0400 Body mass index (BMI) [Ratio] 34.44 kg/m2 Luis Alberto Carrasco Other [facility] Other 10-05-2022 10:00-0400 Body weight 93.9 kg Luis Alberto Carrasco Other [facility] Other 10-05-2022 10:00-0400 Diastolic blood pressure 76 mm[Hg] Luis Alberto Carrasco Other [employer] Other 10-05-2022 10:00-0400 Systolic blood pressure 149 mm[Hg] Luis Ablerto Carrasco Other [employer] Other 07-09-2022 13:15-0500 Body height 165.1 cm Christopher Magalie Other [employer] Other 07-09-2022 13:15-0500 Body mass index (BMI) [Ratio] 36.27 kg/m2 Christopher Magalie Other [facility] Other 07-09-2022 13:15-0500 Body temperature 97.4 [degF] Christopher Magalie Other [employer] Other 07-09-2022 13:15-0500 Body weight 98.88 kg Christopher Magalie Other [facility] Other 07-09-2022 13:15-0500 Diastolic blood pressure 80 mm[Hg] Christopher Magalie Other [employer] Other 07-09-2022 13:15-0500 Respiratory rate 20 /min Christopher Magalie Other [facility] Other 07-09-2022 13:15-0500 SaO2% (BldA) [Mass fraction] 98 % Christopher Magalie Other [facility] Other 07-09-2022 13:15-0500 Systolic blood pressure 126 mm[Hg] Christopher Magalie Other [employer] Other 09-01-2021 13:58-0400 Body height 157.48 cm Luis Alberto Carrasco Work Phone: [facility] [address] DO Work Phone: 09-01-2021 13:58-0400 Body mass index (BMI) [Ratio] 37.13 kg/m2 Luis Alberto Carrasco Work Phone: [facility] 250 DO Work Phone: 09-01-2021 13:58-0400 Body surface area Derived from formula 1.92 m2 Luis Alberto Carrasco Work Phone: [facility] [address] DO Work Phone: 09-01-2021 13:58-0400 Body weight 92.08 kg Luis Alberto Carrasco Work Phone: [facility] [address] DO Work Phone: 09-01-2021 13:58-0400 Diastolic blood pressure 78 mm[Hg] Luis Alberto Carrasco Work Phone: [facility] [address] DO Work Phone: 09-01-2021 13:58-0400 Heart rate 72 /min Luis Alberto Carrasco Work Phone: [facility] [address] DO Work Phone: 09-01-2021 13:58-0400 Systolic blood pressure 124 mm[Hg] Luis Alberto Carrasco Work Phone: [facility] [address] DO Work Phone: 03-21-2021 16:45-0500 Body height 165.1 cm Ras Mejias Other [facility] Other 03-21-2021 16:45-0500 Body mass index (BMI) [Ratio] 35.44 kg/m2 Ras Mejias Other [facility] Other 03-21-2021 16:45-0500 Body temperature 97.9 [degF] Ras Romanno Other [facility] Other 03-21-2021 16:45-0500 Body weight 96.62 kg Ras Romanno Other [facility] Other 03-21-2021 16:45-0500 Diastolic blood pressure 60 mm[Hg] Ras Hulldano Other [facility] Other 03-21-2021 16:45-0500 Respiratory rate 20 /min Ras Romanno Other [facility] Other 03-21-2021 16:45-0500 SaO2% (BldA) [Mass fraction] 98 % Ras Romanno Other [facility] Other 03-21-2021 16:45-0500 Systolic blood pressure 112 mm[Hg] Ras Romanno Other [facility] Other 02-20-2021 14:30-0400 Body height 165.1 cm Lam Andrew Other [facility] Other 02-20-2021 14:30-0400 Body mass index (BMI) [Ratio] 35.44 kg/m2 Lam Andrew Other [facility] Other 02-20-2021 14:30-0400 Body weight 96.62 kg Lam Andrew Other [employer] Other Encounters Encounter Date Encounter Type Care Provider Facility Start: 05-19-2024 ambulatory JUSTINE Vines ty:ANNIE Samano Start: 05-12-2024 End: 05-15-2024 Telephone encounter Simone Nicho Maheshjay DO Work Phone: [facility] Comment on above: Surgery Start: 05-05-2024 End: 05-05-2024 Office outpatient visit 40 minutes Joshua Hickeydon DO Work Phone: [facility] Comment on above: ASCVD (arteriosclero tic cardiovascular disease); S/P CABG (coronary artery bypass graft); Edema, unspecified type; Shortness of breath; Diastolic dysfunction; History of PTCA; Hyperlipidemia, unspecified hyperlipidemia type; Essential hypertension; Chronic obstructive pulmonary disease, unspecified COPD type (Multi); Former smoker; BMI 39.0-39.9,adult Start: 05-05-2024 End: 05-05-2024 ambulatory [facility] Amb[facility] Start: 04-17-2024 ambulatory [facility] Facility :[facility] Start: 01-15-2024 End: 01-15-2024 Bamela mendoza Jr. Simone Nicho Maheshjay DO Work Phone: [facility] Start: 01-15-2024 End: 01-15-2024 Bamela carlosheet Simone Nicho Maheshjay DO Work Phone: [facility] Start: 01-15-2024 End: 01-15-2024 Office outpatient visit 25 minutes Simone Nicho Santoyo DO Work Phone: [facility] Comment on above: Primary osteoarthrit is of left knee (Primary Dx); Acute pain of left knee Start: 01-15-2024 End: 01-15-2024 ambulatory SIMONE JEFFRIES Not Available Start: 01-14-2024 End: 01-14-2024 ambulatory [facility] Work Phone: Start: 01-14-2024 End: 01-14-2024 Patient encounter procedure [facility] Physician [facility] Work Phone: Start: 01-09-2024 Patient encounter procedure [facility] Start: 12-26-2023 Non-patient / Non-visit [facility] Physician [facility] [employer] Work Phone: Start: 12-24-2023 End: 12-24-2023 ambulatory [facility] Work Phone: Start: 12-24-2023 End: 12-24-2023 Patient encounter procedure [facility] Physician [facility] Work Phone: Start: 12-18-2023 End: 12-18-2023 ambulatory SIMONE JEFFRIES Not Available Start: 10-30-2023 End: 10-30-2023 ambulatory SIMONE JEFFRIES Not Available Start: 10-01-2023 End: 10-01-2023 ambulatory MD Luis Alberto Carrasco Work Phone: [facility] Work Phone: Start: 10-01-2023 End: 10-01-2023 Patient encounter procedure MD Luis Alberto Carrasco Work Phone: [facility] Physician [facility] Work Phone: Start: 09-25-2023 End: 09-25-2023 ambulatory SIMONE JEFFRIES Not Available Start: 09-24-2023 End: 09-24-2023 Office outpatient visit 25 minutes Joshua Clark MD Work Phone: [facility] Comment on above: ASCVD (arteriosclero tic cardiovascular disease) (Primary Dx); History of PTCA; Mixed hyperlipidemia; Essential hypertension; S/P CABG (coronary artery bypass graft); BMI 39.0-39.9,adult; Former smoker Start: 09-24-2023 End: 09-24-2023 ambulatory JOSHUA CLARK [facility] Start: 09-16-2023 End: 09-16-2023 ambulatory SIMONE JEFFRIES Not Available Start: 08-30-2023 Non-patient / Non-visit MD Nayeli Carrasco Work Phone: [facility] Physician [facility] [employer] Work Phone: Start: 08-29-2023 End: 08-29-2023 ambulatory Luis Alberto Carrasco Facility:[facility] Start: 08-29-2023 End: 08-29-2023 ambulatory MD Luis Alberto Carrasco Work Phone: [facility] Work Phone: Start: 08-29-2023 End: 08-29-2023 Patient encounter procedure MD Luis Alberto Carrasco Work Phone: [facility] [address] Work Phone: Start: 08-26-2023 End: 08-26-2023 ambulatory [facility] Work Phone: Start: 08-26-2023 End: 08-26-2023 Patient encounter procedure [facility] Physician [facility] Work Phone: Start: 08-20-2023 End: 08-20-2023 ambulatory MARYBETH MASON Not Available Start: 08-08-2023 End: 08-08-2023 ambulatory MARYBETH MASON Not Available Start: 07-15-2023 End: 07-15-2023 Patient encounter procedure [facility] Physician [facility] Work Phone: Start: 07-12-2023 End: 07-12-2023 ambulatory PETER POE Not Available Start: 07-01-2023 End: 07-01-2023 ambulatory SIMONE JEFFRIES Not Available Start: 06-28-2023 End: 06-28-2023 ambulatory PETER POE Not Available Start: 06-14-2023 Chart abstracting Jr. Simone Santoyo DO Work Phone: [facility] Start: 06-11-2023 Refill Marybeth Mason SKIAGRAPHER Work Phone: [facility] Comment on above: Post-op pain (Primar y Dx) Start: 06-05-2023 End: 06-05-2023 ambulatory Luis Alberto Carrasco Other [employer] Other Start: 06-05-2023 Office outpatient vi sit 15 minutes Luis Alberto Carrasco [facility] Start: 05-31-2023 End: 05-31-2023 ambulatory PETER POE Not Available Start: 03-25-2023 End: 03-25-2023 ambulatory SIMONE JEFFRIES Not Available Start: 02-19-2023 End: 02-19-2023 ambulatory Ras Mejias Other [facility] Other Start: 02-19-2023 Office outpatient vi sit 25 minutes Ras Mejisa [facility] Start: 11-16-2022 Chart abstracting Peter MARR Work Phone: [facility] Start: 11-01-2022 Chart Update Luis Alberto Carrasco Work Phone: [facility] [employer] 250 DO Work Phone: Start: 10-31-[address] Joshua Marr [facility] Facility:98 Start: 10-26-2022 Telephone encounter Luis Alberto tierney Work Phone: [facility] [employer] 250 DO Work Phone: Start: 10-15-2022 End: 10-15-2022 ambulatory Luis Alberto Carrasco Other [employer] Other Start: 10-15-2022 Telephone encounter Luis Alberto Carrasco [facility] [employer] Start: 10-05-2022 End: 10-05-2022 ambulatory Luis Alberto Carrasco Other [employer] Other Start: 10-05-2022 Office outpatient vi sit 15 minutes Luis Alberto Carrasco [facility] Start: 09-12-2022 End: 09-12-2022 ambulatory Luis Alberto Carrasco Other [employer] Other Start: 09-12-2022 Telephone encounter Luis Alberto Carrasco [facility] Start: 08-23-2022 End: 08-23-2022 ambulatory Luis Alberto Carrasco Other [employer] Other Start: 08-23-2022 Telephone encounter Luis Alberto Carrasco [facility] Start: 08-22-2022 (Televisit) Televisit Luis Alberto Carrasco [facility] Start: 08-22-2022 End: 08-22-2022 ambulatory Luis Alberto Carrasco Other [facility] [employer] Other Start: 07-09-2022 End: 07-09-2022 ambulatory Ras Mejias Other [facility] [employer] Other Start: 07-09-2022 Office outpatient vi sit 15 minutes Ras Mejias [facility] Start: 06-05-2022 Rx Renewal Luis Alberto Carrasco Work Phone: [facility] Nimbuzz DO Work Phone: Start: 12-27-2021 End: 12-27-2021 [...] procedure MD Luis Alberto Carrasco Work Phone: [facility] [address] Start: 09-04-2021 End: 09-04-2021 Patient encounter procedure MD Luis Alberto Carrasco Work Phone: [facility] Start: 09-01-2021 Office outpatient vi sit 25 minutes Luis Alberto Carrasco Work Phone: [facility] 108 DO Work Phone: Start: 03-30-2022 Telephone encounter Wang almanzar MD Work Phone: Ophthalmology Comment on above: Appointment Start: 06-19-2021 End: 06-19-2021 Patient encounter procedure MD Luis Alberto Carrasco Work Phone: [facility] [address] Start: 04-26-2021 Rx Renewal Luis Alberto Carrasco Work Phone: [facility] 250 DO Work Phone: Start: 03-21-2021 End: 03-21-2021 ambulatory Ras Mejias Other [facility] [employer] Other Start: 03-21-2021 Office outpatient vi sit 15 minutes Ras Mejias [facility] Start: 03-21-2021 AUDIT Luis Alberto Carrasco Work Phone: [facility] 250 DO Work Phone: Start: 02-28-2021 End: 02-28-2021 Telephone encounter Javier De Santiago MD, PhD Work Phone: Neurology Comment on above: Received Outside Med [facility] Records ([facility]) Start: 02-20-2021 Office outpatient ne w 45 minutes Lam Andrew [facility] Start: 01-20-2021 End: 01-21-[address] LUIS ALBERTO CARRASCO Facility:[facility] Start: 11-22-2020 End: 11-22-[address] IOANA CHRISTINA Facility:[facility] Start: 04-05-2020 End: 04-06-[address] LUIS ALBERTO CARRASCO Facility:[facility] Patient encounter status Luis Alberto Carrasco Work Phone: [facility] 250 DO Work Phone: Procedures Date [...] Alberto Carrasco Work Phone: Comment on above: [id number]; Coronary artery bypa ss graft Luis Alberto Carrasco Work Phone: Comment on above: [id number]; History of coronary artery bypass grafting S/P CABG (coronary artery bypass graft) Luis Alberto Carrasco Work Phone: Comment on above: [id number]; History of coronary artery bypass grafting Hx [...] procedure 09/22/2024 2:10 PM EDT Office Visit [facility] [address] [place] [address] Joshua Dill DO [address] [place] [address] [facility] Start: 05-19-2024 End: 05-05-2025 Basic metabolic 2000 panel - Serum or Plasma Basic Metabolic Panel Lab Routine Edema, unspecified type Expected: 05/19/2024 (Approximate), Expires: 05/05/2025 [facility] Service Area Work Phone: Comment on above: Expected: 05/19/2024 (Approximate), Expires: 05/05/2025 Start: 01-15-2024 End: 01-15-2024 Patient encounter procedure 01/15/2024 1:00 PM EDT Office Visit GANESH THOMAS [address] [place] [address] Jr. Simone Santoyo, DO [address] [facility] [address] [place] [address] Arrived [facility] Comment on above: Arrived Start: 01-05-2024 COVID-19 Vaccine ( season) COVID-19 Vaccine ( season) [facility] Start: 01-05-[address] [facility] Start: 11-21-2023 Lipid panel Lipid Panel [facility] Start: 06-28-2023 End: 06-28-2023 Patient encounter procedure 06/28/2023 9:00 AM EST Office Visit [facility] [address] [facility] [address] [place] [address] Peter Poe PA [address] [facility] [address] [place] [address] [facility] Start: 06-14-2023 End: 06-14-2023 Patient encounter procedure 06/14/2023 11:30 AM EST Procedure Visit [facility] Jr. Simone Santoyo DO [address] [facility] [address] [place] [address] [facility] Start: 04-17-2023 FUV, Provider: Joshua Clark, Status: Pen, Time: 3:30 PM FUV, Provider: Joshua Clark, Status: Pen, Time: 3:30 PM -[facility] 250 DO Work Phone: Start: 01-04-2023 COVID-19 Vaccine ( season) COVID-19 Vaccine ( season) [facility] Start: 10-31-2022 STRESS NUC, Provider : MICHELLE HHVI NUCLEAR ,[id number], Status: Pen, Time: 12:30 PM STRESS NUC, Provider: MICHELLE HHVI NUCLEAR ,[id number], Status: Pen, Time: 12:30 PM [facility] [address] DO Work Phone: Start: 08-03-2022 FUV, Provider: Joshua Clark, Status: Pen, Time: 1:40 PM FUV, Provider: Joshua Clark, Status: Pen, Time: 1:40 PM -[facility] 250 DO Work Phone: Start: 05-11-2022 FUV, Provider: Joshua Clark, Status: Pen, Time: 2:10 PM FUV, Provider: Joshua Clark, Status: Pen, Time: 2:10 PM -[facility] 250 DO Work Phone: Start: 03-06-2022 Adult depression screening assessment DEPRESSION SCREENING [facility] Start: 01-04-2022 Influenza vaccination [facility] Start: 06-19-2021 FUV, Provider: Joshua Clark, Status: Pen, Time: 8:00 AM FUV, Provider: Joshua Clark, Status: Pen, Time: 8:00 AM -[facility] 250 DO Work Phone: Start: 06-07-2021 FUV, Provider: Joshua Clark, Status: Pen, Time: 2:30 PM FUV, Provider: Joshua Clark, Status: Pen, Time: 2:30 PM -[facility] 250 DO Work Phone: Start: 05-06-2021 ADVANCE DIRECTIVE DISCUSSION ADVANCE DIRECTIVE DISCUSSION [facility] Start: 01-04-2021 Influenza vaccination INFLUENZA (#1) [facility] Start: 12-30-2016 Abdominal aortic aneurysm screening Abdominal Aortic Aneurysm (AAA) Screening [facility] Start: 12-30-2016 ADVANCE DIRECTIVE DISCUSSION ADVANCE DIRECTIVE DISCUSSION [facility] Start: 12-30-2016 PNEUMOCOCCAL: 65+ (1 - PCV) PNEUMOCOCCAL: 65+ (1 - PCV) [facility] Start: 12-30-2016 PNEUMOVAX AGE 65 AND OVER WITH 5YR LOOKBACK (#1) PNEUMOVAX AGE 65 AND OVER WITH 5YR LOOKBACK (#1) [facility] Start: 2011 RSV High Risk: (Elde rly (60+) or Population) (1 - Risk 60-74 years 1-dose series) RSV High Risk: (Elderly (60+) or Population) (1 - Risk 60-74 years 1-dose series) [facility] Start: 2011 RSV patient s and/or patients aged 60+ years (1 - 1-dose 60+ series) RSV patients and/or patients aged 60+ years (1 - 1-dose 60+ series) [facility] Start: 12-30-2001 SHINGRIX VACCINE (1 of 2) SHINGRIX VACCINE (1 of 2) [facility] Start: 12-30-2001 Zoster Vaccines (1 o f 2) Zoster Vaccines (1 of 2) [facility] Start: 12-30-1996 COLOGUARD (FIT-DNA) COLOGUARD (FIT-D NA) [facility] Start: 12-30-1996 Colonoscopy COLONOSCOPY [facility] Start: 12-30-1996 COLORECTAL CANCER SCREENING COLORECTAL CANCER SCREENING [facility] Start: 12-30-[address] COLONOGRAPHY [facility] Start: 12-30-1996 DIABETES SCREEN DIABETES SCREEN [facility] Start: 12-30-1996 FECAL OCCULT BLOOD FECAL OCCULT BLOO D [facility] Start: 12-30-1996 SIGMOIDOSCOPY SIGMOIDOSCOPY [facility] Start: 12-30-1986 LIPID SCREEN LIPID SCREEN [facility] Start: 12-30-1973 DTaP/Tdap/Td Vaccine s (1 - Tdap) DTaP/Tdap/Td Vaccines (1 - Tdap) [facility] Start: 12-30-1970 Urine microalbumin profile DTAP,TDAP,TD (1 - Tdap) [facility] Start: 12-30-1969 Diabetes mellitus screening Diabetes Screening [facility] Start: 12-30-1969 HEPATITIS C SCREENING HEPATITIS C [facility] Start: 12-30-1969 Hepatitis C screening Hepatitis C [facility] Start: 1963 Adult depression screening assessment DEPRESSION SCREENING [facility] Start: 1963 COVID-19 VACCINE (1) COVID-19 VACCIN E (1) [facility] Start: 12-30-1956 COVID-19 VACCINE (#1) COVID-19 VACCI NE (#1) [facility] Start: 12-30-1956 COVID-19 VACCINE (1) COVID-19 VACCIN E (1) [facility] Start: 07-02-1952 COVID-19 VACCINE (#1) COVID-19 VACCI NE (#1) [facility] Start: 1950 ABDOMINAL AORTIC ANEURYSM SCREENING ABDOMINAL AORTIC ANEURYSM SCREENING [facility] Start: 1950 Medicare Annual Wellness Visit Medicare Annual Wellness Visit (AWV) [facility] Start: 1950 Screening for malign ant neoplasm of colon [facility] Comprehensive metabo lic 1999 panel - Serum or Plasma [facility] Comprehensive metabo lic 1999 panel - Serum or Plasma [facility] Glucose measurement estimated from glycated hemoglobin [facility] Work Phone: Hemoglobin A1c/Hemoglobin.total in Blood [facility] Work Phone: Microalbumin [Mass/volume] in Urine [facility] XR Wrist - left GE 3 Views [facility] Immunizations Immunization Date Immunization Notes Care Provider Joanne [email or web address] 02-18-2022 influenza virus vaccine, unspecified formulation Joshua Clark MD Work Phone: [facility] Work Phone: 02-18-2022 influenza, high dose seasonal, preservative-free Luis Alberto Carrasco Work Phone: [facility] [employer]imb[employer] DO Work Phone: Comment on above: Series: 02-13-2022 influenza virus vaccine, split virus (incl. purified surface antigen) Ras Mejias Other [facility] [employer] Other 02-13-2022 influenza virus vaccine, unspecified formulation [facility] 05-06-2017 pneumococcal polysaccharide vaccine, 23 valent Luis Alberto Carrasco Work Phone: [facility] 250 DO Work Phone: 01-22-2017 pneumococcal conjuga te vaccine, 13 valent Luis Alberto Carrasco Work Phone: [facility] 250 DO Work Phone: 02-11-2015 influenza virus vaccine, unspecified formulation Luis Alberto Espinoza Carrasco Work Phone: [facility] 250 DO Work Phone: 02-03-2015 seasonal influenza, intradermal, preservative free Luis Alberto E Carrasco Work Phone: [place] [address] DO Work Phone: 04-27-2014 influenza, injectabl e, quadrivalent, contains preservative Luis Alberto E Carrasco Work Phone: [place] [address] DO Work Phone: 03-16-2014 influenza virus vaccine, unspecified formulation Luis Alberto E Carrasco Work Phone: [place] [address] DO Work Phone: 02-03-2013 influenza virus vaccine, unspecified formulation Luis Alberto E Carrasco Work Phone: [place] [address] DO Work Phone: 02-03-2013 influenza virus vaccine, whole virus Luis Alberto Espinoza Carrasco Work Phone: [place] [address] DO Work Phone: 02-03-2013 influenza, seasonal, injectable Jr. Stepanic DO Work Phone: [facility] 02-09-2009 influenza virus vaccine, whole virus Luis Alberto E Carrasco Work Phone: [facility] 250 DO Work Phone: 02-04-2008 pneumococcal polysaccharide vaccine, 23 valent Luis Alberto E Carrasco Work Phone: [facility] 250 DO Work Phone: 02-02-2005 pneumococcal polysaccharide vaccine, 23 valent Luis Alberto E Carrasco Work Phone: [facility] 250 DO Work Phone: influenza virus vaccine, unspecified formulation Luis Alberto E Carrasco Work Phone: [facility] 250 DO Work Phone: Comment on above: 2011 2009 2007 Payers Date Payer Category Payer Medicare (Managed Care) 1.2. [id number] 2022 Unknown 2021 Medicare DEVOTED MEDICARE DEVOTED HEALTH [id number] 2021-Present [phone] [address] [place] [address] O [id number] 2021 Medicare [id number] 2021 Unknown [id number] 2020 Unknown MMO MMO MEDICARE SUPPLEMENT [id number] 2020-Present Indemnity [id number] 2007 Medicare [id number] 2006 Medicare MEDICARE MEDICAR E A AND B [id number] 2006-Present [place] Medicare [id number] 1959 Medicare [id number] 1959 Unknown [id number] 1951 Unknown [id number] 2.16.840.1.761054.3.579.2. 593 1951 Unknown [id number] 2.16.840.1.980469.3.579.2. 593 1951 Unknown [id number] 2.16.840.1.073243.3.579.2. 593 1951 Unknown [id number] 2.16.840.1.707027.3.579.2. 1068 1951 Unknown [id number] 2.16.840.1.381362.3.579.2. 1259 1951 Unknown [id number] 2.16.840.1.774585.3.579.2. 1259 1951 Unknown [id number] 2.16.840.1.131461.3.579.2. 125 1951 Unknown [id number] 2.16.840.1.734239.3.579.2. 1259 1951 Unknown [id number] 2.16.840.1.122853.3.579.2. 125 1951 Unknown [id number] 2.16.840.1.431919.3.579.2. 1258 1951 Unknown [id number] 2.16.840.1.511697.3.579.2. 125 1951 Unknown [id number] 2.16.840.1.345588.3.579.2. 1259 1951 Unknown [id number] 2.16.840.1.494751.3.579.2. 1259 1951 Unknown [id number] 2.16.840.1.531849.3.579.2. 1259 1951 Unknown [id number] 2.16.840.1.479662.3.579.2. 125 1951 Unknown [id number] 2.16.840.1.286834.3.579.2. 1259 1951 Unknown [id number] 2.16.840.1.042767.3.579.2. 1259 1951 Unknown [id number] 2.16.840.1.517000.3.579.2. 727 1951 Unknown [id number] 2.16.840.1.610710.3.579.2. 1244 1951 Unknown [id number] 2.16.840.1.520540.3.579.2. 1244 Self-pay Self Pay [id number] Unknown [id number] Unknown [id number] Unknown [id number] Social History Date Type Detail Facility Tobacco smoking status [facility] Unknown if ever smoked [facility] [employer] Other Start: 1950 Sex Assigned At Not on file [facility] Start: 03-31-2021 End: 06-16-2023 Tobacco smoking status MAIS Ex-smoker [facility] Start: 04-09-2020 End: 05-06-2008 History of tobacco use Current smoker [facility] Start: 03-31-2021 End: 09-24-2023 Tobacco use and exposure Smokeless tobacco non-user [facility] Start: 03-31-2021 End: 01-15-2024 Alcohol intake Current drinker of alcohol (finding) [facility] Start: 03-06-2021 End: 04-12-2023 History SDOH Alcohol Comment occasionally [facility] Start: 03-25-2023 End: 01-15-2024 No illicit drug use No illicit drug use [place] [address] DO Work Phone: Comment on above: 1-2 cups of coffee d aily; occasionally; quit 2008; Start: 1950 Sex Assigned At [facility] Start: 03-25-2023 End: 01-15-2024 Sex Assigned At [facility] Other End: 05-06-2008 History of tobacco use Cigarette Smoker [facility] Start: 06-16-2023 Tobacco Comment Quit smoking > 10 years ago. [facility] Start: 09-14-2023 End: 2024 Exposure to SARS-CoV-2 (event) Not sure [facility] Start: 07-08-2023 Gender identity Identifies as male gender (finding) [facility] Clinical Notes 01-20-2021 to 05-14-2024 Telephone Encounter [...] surgery. He has an upcoming appt with Deputy Controller and would like to discuss surgery again with him before proceeding. He will call back when ready to schedule. [facility] 05-14-2024 Miscellaneous Notes Spoke to pt and he would like to hold off at this time scheduling surgery. He has an upcoming appt with Deputy Controller and would like to discuss surgery again with him before proceeding. He will call back when ready to schedule. Patient called stating his heart doctor, is having him put sx off until september. Any questions please call . documented in this encounter [facility] 05-12-2024 Telephone encounter Note Patient called stating his heart doctor, is having him put sx off until september. Any questions please call . [facility] 05-05-2024 History of Present illness Narrative Subjective [...] am now assuming cardiovascular management following his fci Patient has a history of remote CABG, heart catheterization performed electively by myself in 2019 revealed patent LLAMAS-LAD and SVG-diagonal, patent [place] ramus branch (occluded graft to the ramus [...] Judgment: Judgment normal. Allergies Morphine, Ranolazine, Spironolactone, Glhzobq-uko-khk reductase inhibitors, and Fentanyl Current Medications Current [...] discussion and plan. documented in this encounter [facility] Work Phone: 05-05-2024 Instructions Mavis Henry RN [...] instructions on exercise. documented in this encounter [facility] Work Phone: 01-15-2024 History of Present illness [...] left knee showed severe varus deformity with qdxf-gp-xibq articulation to the medial joint line, flattening [...] after February secondary to a vacation to [place] planned in February. He is understanding we [...] years old, or requires discharged to a senior living facility, the patient may require to have additional inpatient hospital stay following the surgery. Physical therapy is contraindicated in this patient's case because of efsb-pb-tyck articulation of the patient's knee. Simone Santoyo D.O. documented in this encounter [facility] 09-24-2023 History of Present illness Narrative Subjective [...] normal. Judgment: Judgment normal. Allergies Morphine, Ranolazine, Eyqkvuk-atb-vku reductase inhibitors, and Fentanyl Current Medications Current [...] discussion and plan. documented in this encounter [facility] Work Phone: 09-24-2023 Instructions Keshia Mckeon LPN [...] Prevention Education Given documented in this encounter [facility] Work Phone: 06-11-2023 Telephone encounter Note Post op pain rx. PDMP reviewed. [facility] 06-11-2023 Miscellaneous Notes Post op pain rx. PDMP reviewed. documented in this encounter [facility] 06-05-2023 Evaluation note Encounter Date Diagnosis Assessment Notes May, Acute non-recurrent maxillary sinusitis (ICD-10 - J01.00) Reviewed allergies and medications. ER if dyspnea worsens. Ask pharmacist which OTC would be best, jose armando w his cardiac meds. Víctor expresses understanding. [facility] Other 10-17-2023 Evaluation note* Encounter Date Diagnosis Assessment Notes Treatment Notes Treatment Clinical Notes Feb, Asthma, mild intermittent (ICD-10 - J45.20) [facility] Other 06-02-2023 Evaluation note* Encounter Date Diagnosis Assessment Notes Treatment Notes Treatment Clinical Notes Oct, Acute pain of left knee (ICD-10 - M25.562) Pt states he has not had an xray. Suspect this is why he is waiting on the MRI. Will check MRI at [facility] outpt imaging in [place]. Oct, Leg edema, left (ICD-10 - R60.0) Will recheck DVT US for reassurance as it has been more than a week and pt states edema and pain have increased. Pt will call [facility] Outpt imaging in [place] for appt - JOSE RAUL Oct, Right ear impacted cerumen (ICD-10 - H61.21) [facility] Other 04-19-2023 Evaluation note* Encounter Date Diagnosis Assessment Notes Treatment Notes Treatment Clinical Notes Aug, Bronchitis (ICD-10 - J40) Discussed diagnosis with patient. Patient to start Zithromax. Patient to take Zithromax daily with food as prescribed. Finish entire course of antibiotic. Has proair inhaler. Osnm-jau-xlwlnwf antipyretics as needed. Warning signs and symptoms reviewed with patient today. Patient to go immediately to the ER should she experience any of these. Patient to notify office should her symptoms persist and not improve. Patient verbalizes understanding and agrees to treatment plan. [facility] Other 03-06-2023 Evaluation note* Encounter Date Diagnosis Assessment Notes Treatment Notes Treatment Clinical Notes Jul, Dyspnea on exertion (ICD-10 - R06.09) [facility] Other 08-24-2022 NoteHNO ID: [id number] Author: Kristin Giraldo MD Service: ? Author [...] its relevant components. Kristin Giraldo MD December 27[facility] History of Present illness Narrative* Kristin [...] MD December 27, 2021 [facility] NoteHNO ID: [id number] Author: Kristin Giraldo MD Service: ? Author [...] its relevant components. Kristin Giraldo MD November 13[facility] History of Present illness Narrative* Kristin [...] MD November 13, 2021 [facility] NoteHNO ID: [id number] Author: Kristin Giraldo MD Service: ? Author [...] its relevant components. 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 Reese's is referring patient to Dr. Rodrigues for a Yag and SLT Laser. Spoke to patient, he needs to speak with his daughter for his transportation and he will call back. Informed him days Dr. Lopez in [place]. documented [facility]2022 NoteHNO ID: [id number] Author: Brisa Mari MD Service: ? Author Type: Physician Type: Progress Notes Filed: 05/10/2021 9:34 AM Note Text: Patient [facility] not [facility] to [facility]. Brisa Mari, [facility]11-26-2021 NoteHNO ID: [id number] Author: Javier De Santiago MD, PhD Service: ? Author Type: Physician Type: Progress Notes Filed: 04/10/2021 11:39 PM Note Text: [facility] Consultation Follow-Up Visit March 31, [...] last time CT head reviewed indicating:RESULT: ? Manager New Product (topogram) images: No significant findings. ? Post-operative [...] Javier De Santiago MD, PhD VT: 25 [facility]11-26-2021 NoteHNO ID: [id number] Author: RT Rober(Jenelle) Service: Radiology Author Type: [...] BY: RT Rober(R) March 31, 2021 7:46 [facility]11-01-2021 NoteHNO ID: [id number] Author: RT Michelle(Jenelle) Service: Radiology Author Type: [...] BY: RT Michelle(R) March 06, 2021 11:17 [facility]11-01-2021 NoteHNO ID: [id number] Author: Ronald Castro MD Service: ? Author Type: Physician Type: Progress Notes Filed: 03/06/2021 3:00 PM Note Text: [facility] - NEW PATIENT EVALUATION Javier De Santiago [address] De Santiago: Thank you for [...] PROMIS-10 Office Visit from 03/06/2021 in [facility] T Score 32.4 Global Mental Health T Score 56 0-10 Standard Pain Scale 2 *PROMIS-10 scoring scale: mean = 50, over 50 is above average, under 50 is below average Review of Systems Constitutional: Negative. HENT: Negative. Eyes: Negative. 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 Cardiovascular: Negative. Gastrointestinal: Positive for abdominal [...] Medical and Surgical History: CAD s/p CABG, NM x 2, HTN, CTS s/p surgery, neck pain s/p surgery Social History Tobacco Use - Smoking status: Never Smoker - Smokeless tobacco: Never Used Substance Us (more content not included)...[facility]11-01-2021 NoteHNO ID: [id number] Author: Vasile El Service: ? Author Type: ? Type: Progress Notes Filed: 03/06/2021 3:00 PM Note Text: Intake information documented in the prior visit with Dr. 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 I [...] as documented in the electronic medical record. [facility] Other 09-17-2021 NotePROCEDURE: XR HIP LT 2 [...] Electronically authenticated by: CHILO ROBLES Date: 2021-01-20 16:20Th[facility] noteNo assessment information [facility] Work Phone: Evaluation note* Diagnosis Glaucoma suspect of both eyes- Primary Preglaucoma, unspecified PCO (posterior capsular opacification), bilateral After-cataract, unspecified PCO (posterior capsular opacification), bilateral- Primary After-cataract, unspecified Glaucoma suspect of both eyes Preglaucoma, unspecified [facility] noteNort [employer] Other Evaluation note* Diagnosis Glaucoma suspect of both eyes- Primary Preglaucoma, unspecified documented in this encounter [facility] noteNo InformationNort [employer] Other Evaluation note* Diagnosis Post-op pain- Primary Other acute postoperative pain [facility]* Diagnosis Onset Date Resolution Status BPV (benign positional vertigo) acute Hypertension acute Left wrist pain acute Type 2 diabetes mellitus with hyperglycemia acute [facility] Work Phone: Evaluation note* Diagnosis ASCVD (arteriosclerotic cardiovascular disease)- Primary Unspecified cardiovascular disease History of PTCA Postsurgical percutaneous transluminal coronary angioplasty status Mixed hyperlipidemia Essential hypertension Unspecified essential hypertension S/P CABG (coronary artery bypass graft) Postsurgical aortocoronary bypass status BMI 39.0-39.9,adult Former smoker Personal history of tobacco use, presenting hazards to health documented in this encounter [facility] Work Phone: Evaluation note* Diagnosis Onset Date Resolution Status BPV (benign positional vertigo) acute Hypertension acute Left wrist pain acute Type 2 diabetes mellitus with hyperglycemia acute Asthma acute [facility] Work Phone: Evaluation note* Diagnosis Onset Date Resolution Status Asthma acute Hyperlipidemia acute Hypertension acute Type 2 diabetes mellitus with hyperglycemia acute [facility] Work Phone: Evaluation note* Diagnosis Onset Date Resolution Status Hyperlipidemia acute Hypertension acute Medicare annual wellness visit, subsequent acute Type 2 diabetes mellitus with hyperglycemia acute Pharyngitis acute [facility] Work Phone: Evaluation note* Diagnosis Primary osteoarthritis of left knee- Primary Acute pain of left knee documented in this encounter [facility]* Diagnosis ASCVD (arteriosclerotic cardiovascular disease) [...] health BMI 39.0-39.9,adult documented in this encounter [facility] Work Phone: History general Narrative - Reported* Type Description Date Medical History CAD Medical History VASQUEZ Medical History Hypertension Medical History Esophageal reflux Surgical History CABG 2005 Surgical History Neck Surgery 2002 Surgical History carpal tunnel release 2002 Surgical History pilonidal cyst 1979 Surgical History tonsillectomy 1968 Surgical History appendectomy 1972 Surgical History tear duct surgery 1976 Surgical History heart stents [employer] Other History general [facility] - [facility] [employer] Other History general Narrative - Reported* Type [...] heart stents Hospitalization History SEE SURGICAL HX [facility] Other History general Narrative - Reported* Type [...] 01/2023 ? Hospitalization History SEE SURGICAL HX [facility] Other History of Present illness NarrativePatient returns [...] calorie restricted diet with exercise and weight loss.[facility] 2ours DO Work Phone: Reason for referral (narrative)* Reason refer patient to F neurology for further evaluation of potential neurological disorder. Hx of tics, peripheral peristhesia upper and lower extremities, hyporeflexia, spasticity. Please eval jose raul Diagnosis 1 Simple tics (F95.9) Referral Organization [facility] Referring Provider First Name Lam Referring Provider Last Name Latanya Referring Provider Specialty Orthopedic Surgery Referred Organization [facility] Referred Address [address] [place], [place],[address] Referred Provider Specialty Neurology Referral Priority Routine [facility] [employer] Other Reason for referral (narrative)* Consultation (Routine) - Authorized Specialty Diagnoses / Procedures Referred By Lizy barakat Referred To Contact Cardiology Diagnoses ASCVD (arteriosclerotic cardiovascular disease) Procedures Follow Up In Cardiology Joshua Clark MD [address] [facility] [address], [address] [address] Joshua Dill DO [address] [facility] [address], [address] [place], [place] [id number] Referral ID Status Reason Start Date Expiration Date V isits Requested Visits Authorized [id number] Authorized 09/24/2023 09/23/2024 1 1 [facility] Work Phone: Summary Purpose Family History Unknown [...] ear impacted c erumen (H61.21) Referral Organization [facility] C daniel Referring Provider First Name Luis Alberto Referring Provider Last Name Danilo Referring Provider Specialty [facility] Referred Organization [facility] Referred Address ,[place], [place],[address] Referred Provider Specialty Ear, Nose an d Throat Referral Priority Routine Additional Source Comments (unrecognized sect ion and content) No Status Records FoundNo Status Records FoundNo Status Records FoundNo Status Records FoundNo Status Records FoundNo Status Records FoundNo Status Records FoundNo Status Records Found INFORMATION SOURCE (unrecogn ized section and content) DATE CREATED AUTHOR 02/06/2021 [facility] DATE CREATED AUTHOR AUTHOR'S ORGANIZ ATION 09/04/2021 [facility] DATE CREATED AUTHOR AUTHOR'S ORGANIZ ATION 01/01/2022 [facility] DATE CREATED AUTHOR AUTHOR'S ORGANIZ ATION 11/01/2022 [facility] DATE CREATED AUTHOR AUTHOR'S ORGANIZ ATION 08/31/2023 [facility] DATE CREATED AUTHOR AUTHOR'S ORGANIZ ATION 01/20/2024 [facility] EP[facility] DATE CREATED AUTHOR AUTHOR'S ORGANIZ ATION 04/26/2024 [facility] DATE CREATED AUTHOR AUTHOR'S ORGANIZ ATION 05/06/2024 [facility] Source Comments (unrecognize d section and content) In the event this informatio n is protected by the Federal Confidentiality of Alcohol and Drug Abuse Patient Records regulations: The Federal rules restrict any use of the information to criminally investigate or prosecute any alcohol or drug abuse patient.[facility] the event this information is protected by the Federal Confidentiality of Alcohol and Drug Abuse Patient Records regulations: The Federal rules restrict any use of the information to criminally investigate or prosecute any alcohol or drug abuse patient.[facility] the event this information is protected by the Federal Confidentiality of Alcohol and Drug Abuse Patient Records regulations: The Federal rules restrict any use of the information to criminally investigate or prosecute any alcohol or drug abuse patient.[facility] the event this information is protected by the Federal Confidentiality of Alcohol and Drug Abuse Patient Records regulations: The Federal rules restrict any use of the information to criminally investigate or prosecute any alcohol or drug abuse patient.[facility] the event this information is protected by the Federal Confidentiality of Alcohol and Drug Abuse Patient Records regulations: The Federal rules restrict any use of the information to criminally investigate or prosecute any alcohol or drug abuse patient.[facility] Reason for Visit (unrecogniz ed section [...] August 26, 2023 End: August 26, 2023 Chief Of Staff Doctor Relationship Specialty Start Date End Date Tim Adams Jr. PCP - General 07/18/06 Lam Andrew DO Referring Emergency Medicine 02/23/21 Team Status: Inactive Member Role Status Dates Luis Alberto Carrasco MD Primary Care Provider Active Papa Washburn DO Attending Provider Active Team Status: Inactive Member Role Status Dates Luis Alberto Carrasco MD Primary Care Provider, Attending Sahra hyatt Active Chief Of Staff Doctor Relationship Specialty Start Date End Date Tim Adams Jr. PCP - General 07/18/06 Lam Andrew DO Referring Emergency Medicine 02/23/21 Chief Of Staff Doctor Relationship Specialty Start Date End Date Tim Adams Jr. PCP - General 07/18/06 Lam Andrew DO Referring Emergency Medicine 02/23/21 Chief Of Staff Doctor Relationship Specialty Start Date End Date Luis Alberto Carrasco MD [address] [facility] [place] [phone] PCP - General Family Medicine 09/18/22 Chief Of Staff Doctor Relationship Specialty Start Date End Date Luis Alberto Carrasco MD [address] [place] [address] PCP - General Family Medicine 09/18/22 Chief Of Staff Doctor Relationship Specialty Start Date End Date Luis Alberto Carrasco MD [address] [place] [phone] PCP - General Family Medicine 09/18/22 Team Status: Inactive Member Role Status Dates Luis Alberto Carrasco MD Primary Care Provide r, Attending Provider Active Start: August 29, 2023 End: August 29, 2023 Chief Of Staff Doctor Relationship Specialty Start Date End Date Luis Alberto Carrasco MD [address] [place] [address] PCP - General 11/20/18 Team Status: Active Member Role Status Dates Luis Alberto Carrasco MD Primary Care Provide r, Attending Provider Active Start: August 30, 2023 Team Status: Inactive Member Role Status Dates Luis Alberto Carrasco MD Primary Care Provider Active Start: October 01, 2023 End: October 01, [address] [facility] Attending Provider Active Start: October 01, [...] End: January 14, 2024 Justine Reed APRN [employer] Attending Provider Active Start: January End: January 14, 2024 Chief Of Staff Doctor Relationship Specialty Start Date End Date Luis Alberto Carrasco MD [address] [place] [phone] PCP - General Family Medicine 09/18/22 Chief Of Staff Doctor Relationship Specialty Start Date End Date Luis Alberto Carrasco MD [address] [place] [phone] PCP - General Family Medicine 09/18/22 Chief Of Staff Doctor Relationship Specialty Start Date End Date Luis Alberto Carrasco MD [address] [place] [address] PCP - General 11/20/18 Goals (unrecognized section [...] BE BASED ON THE PRIMARY CLINICAL RECORDS. [facility]. provides no warranty or guarantee of the accuracy or completeness of information in this document.
[2024-05-19 17:07] LABS: Anion Gap 7.5; BUN Creatinine Ratio 17.2; Chloride 102 mmol/L (98-107); Estimated GFR (African America >60 (>=60 mL/min/1.73m^2); Estimated GFR (Non-African Ame 52 (>=60 mL/min/1.73m^2); Glucose 158 mg/dL (74-106); Potassium 4.5 mmol/L (3.5-5.1); Sodium 137 mmol/L (136-145)
== END 2024-05-19 16:44 | disposition home or self-care (01) ==
PROVIDERS: PCP Family Medicine; Visit Provider Internal Medicine Cardiovascular Disease
DX: R60.9 Edema, unspecified (principal)
CPT/HCPCS: 36415; 80048

== ENCOUNTER 2024-09-11 16:07 | Outpatient (OUT) | payer OTHER, SELFPAY ==
[2024-09-11 16:41] LABS: Basophils Absolute Auto 0.1 10^3/uL (0.0-0.1); Basophils Percent Auto 0.9 % (0.2-2.0); Eosinophils Absolute Auto 0.3 10^3/uL (0.0-0.7); Eosinophils Percent Auto 4.1 % (0.9-7.0); Hematocrit 34.5 % (42.0-54.0); Hemoglobin 11.2 g/dL (14.0-18.0); Immature Granulocytes Abs Auto 0.06 10^3/uL (0.00-0.03); Immature Granulocytes Pct Auto 0.9 % (0.0-0.5); Lymphocytes Absolute Auto 1.9 10^3/uL (1.2-3.8); Lymphocytes Percent Auto 28.6 % (20.5-60.0); Mean Corpuscular HGB Conc 32.5 g/dL (29.9-35.2); Mean Corpuscular Hemoglobin 31.5 pg (25.9-34.0); Mean Corpuscular Volume 97.2 fL (80.0-94.0); Mean Platelet Volume 10.6 fL (9.5-13.5); Monocytes Absolute Auto 0.8 10^3/uL (0.3-0.8); Monocytes Percent Auto 11.9 % (1.7-12.0); Neutrophils Absolute Auto 3.6 10^3/uL (1.4-6.5); Neutrophils Percent Auto 53.6 % (43.0-75.0); Platelet Count 264 10^3/uL (150-450); Red Blood Count 3.55 10^6/uL (4.70-6.10); Red Cell Distribution Width 13.2 % (11.0-15.0); White Blood Count 6.8 10^3/uL (4.0-11.0)
[2024-09-11 16:51] LABS: Alanine Aminotransferase 33 U/L (16-63); Albumin Globulin Ratio 1.2; Albumin Level 3.6 g/dL (3.4-5.0); Alkaline Phosphatase 58 U/L (46-116); Anion Gap 9.4; Aspartate Amino Transferase 14 U/L (15-37); BUN Creatinine Ratio 17.8; Bilirubin Total 0.3 mg/dL (0.2-1.0); Calcium 9.1 mg/dL (8.5-10.1); Carbon Dioxide 30.5 mmol/L (21.0-32.0); Chloride 101 mmol/L (98-107); Estimated GFR (African America >60 (>=60 mL/min/1.73m^2); Estimated GFR (Non-African Ame >60 (>=60 mL/min/1.73m^2); Glucose 115 mg/dL (74-106); Potassium 3.9 mmol/L (3.5-5.1); Sodium 137 mmol/L (136-145); Total Protein 6.6 g/dL (6.4-8.2)
== END 2024-09-11 16:08 | disposition home or self-care (01) ==
LOC: LAB 16:09
PROVIDERS: PCP Family Medicine
DX: R06.00 Dyspnea, unspecified (principal)
CPT/HCPCS: 36415; 80053; 85025

== ENCOUNTER 2025-02-10 11:50 | Outpatient (OUT) | payer OTHER, SELFPAY ==
--- OUTSIDE RECORDS SUMMARY | 2025-02-10 11:59 | XMS_ITS | CCD ---
Author Organization [facility] Care Team Providers Care Lead Tinner Name Role Phone SAN[place], DR TRIPLETT Attending [...] DANILO, DR LUIS ALBERTO Espinoza Admitting Unavailable Camelia Adams Jr. Primary Care Provider Unava ilLam Musa (Hist) Unavailable [phone] Luis Alberto Carrasco Unavailable Unavailable Unavailable Lam Pelaez DO Unavailable [phone] MD Luis Alberto Carrasco Primary Care Provider MD Luis Alberto Carrasco Attending Provider [phone] DO Papa Washburn Attending Provider [phone] MD Luis Alberto Carrasco Primary Care Provider MD Luis Alberto Carrasco Attending Provider Lam Pelaez Unavailable Ras Mejias Unavailable Bryan Jeffries [facility] Primary Care Provider Unava ilLam Musa DO Unavailable [phone] Luis Alberto Carrasco Unavailable Amber MACK, Dr. Joshua Alcantar Referring Unavailable Amber MACK, Dr. Joshua Alcantar Attending Unavailable Danilo, Dr. Luis Alberto Jacobs Primary Care Unav Luis Alberto Roque MD Primary Care Provider [phone] MD Luis Alberto Carrasco Primary Care Provider MD Luis Alberto Carrasco Attending Provider [phone] Luis Alberto Carrasco MD Primary Care Provider PETER POE Attending Unavailable STEPANIC JRJessica, SIMONE Torre Attending Unavaila ble PETER POE Attending Unavailable STEPANIC, JR., SIMONE Torre Attending Unavaila ble PETER POE Attending Unavailable MARYBETH MASON Attending Unavailable MARYBETH MASON Attending Unavailable STEPANIC, JR., SIMONE Torre Attending Unavaila ble STEPANIC, JR., SIMONE Torre Referring Unavaila ble STEPANIC, JR., SIMONE Torre Attending Unavaila ble STEPANIC, JR., SIMONE Torre Attending Unavaila ble STEPANIC, JR., SIMONE Torre Attending Unavaila ble STEPANIC, JRJessica, SIMONE Torre Referring Unavaila LUIS ALBERTO Lemus Primary Care Physician Luis Alberto Carrasco MD Primary Care Provider Justine Piedra PA-C Attending Provider TIFFANIE PIEDRA Attending Unavailab le LUIS ALBERTO CARRASCO Referring Unavailable NKANSAH-AMANKRA, RUDI Admitting Unavail able NKANSAH-AMANKRA, RUDI Attending Unavail able NKANSAH-AMANKRA, RUDI Attending Unavail able JAIRO CH Referring Unavailable LUIS ALBERTO CARRASCO Primary Care Unavailable JAIRO CH Referring Unavailable LUIS ALBERTO CARRASCO Primary Care Unavailable JAIRO CH Referring Unavailable LUIS ALBERTO CARRASCO Primary Care Unavailable Luis Alberto Carrasco MD Primary Care Provider Justine Piedra PA-C Attending Provider Jairo Ch APRN Attending Provider NKANSAH-AMANKRA, RUDI Attending Unavail able NKANSAH-AMANKRA, RUDI Referring Unavail able NKANSAH-AMANKRA, RUDI Admitting Unavail able NKANSAH-AMANKRA, RUDI Attending Unavail able NKANSAH-AMANKRA, RUDI Admitting Unavail able NKANSAH-AMANKRA, RUDI Attending Unavail able NKANSAH-AMANKRA, RUDI Referring Unavail able NKANSAH-AMANKRA, RUDI Admitting Unavail able Armin Bhatia Attending Unavailable Ainsley Prabhakar Attending Unavailable Ainsley Prabhakar Admitting Unavailable Gaurav, Christopher S. Consulting Unavailabl e Gaurav, Christopher S. Consulting Unavailabl e Isaias Nolascoopher S. Consulting Unavailabl e MD Maryana Mclaughlin Consulting Unavailable Kamadana, Maryana Consulting Unavailable Kamadanicholas, Maryana Consulting Unavailable Ainsley Prabhakar Attending Unavailable Gaurav, Christopher S. Consulting Unavailabl e Ainsley Prabhakar Admitting Unavailable MD Ras Nolasco Consulting Unavail able Gaurav, Christopher S. Consulting Unavailabl e NKANSAH-AMANKRA, RUDI Attending Unavail able NKANSAH-AMANKRA, RUDI Attending Unavail able Eldon Monroy Attending Unavailable Gaurav Christopher S. Consulting Unavailabl e NKANSAH-AMANKRA, RUDI Attending Unavail able Orly Carey Attending Unavailable Luis Alberto Carrasco MD Primary Care Provider Jaime Sharif MD Attending Provider CAMELIA ADAMS JR Primary Care Unavailable CAMELIA PIEDRA Attending Unavailable Camelia Adams Jr. Primary Care Provider Unava ilable Latanya HARDING, Lam Cartagena Unavailable Rudi Pinon MD Attending Provider Luis Alberto Carrasco MD Primary Care Provider Luis Alberto Carrasco MD Attending Provider Provider, Outside Attending Provider Unavailable Jaime Sharif MD Other Provider Ken Rios MD Attending Provider Rudi Pinon MD Referring Provider Ken Rios MD Other Provider Luis Alberto Carrasco MD Primary Care Provider [phone] Carrasco MD, Luis Alberto E Primary Care Provider Luis Alberto Carrasco MD Attending Provider Shannon Cuenca MD Attending Provider [phone] Franca Henning APRN Attending Provider JOSHUA DILL Attending Unavailable JOSHUA DILL Referring Unavailable CARRASCO, LUIS ALBERTO E Primary Care Unavailable JOSHUA DILL Attending Unavailable LUIS ALBERTO CARRASCO E Primary Care Unavailable JAIRO CH Attending Unavailable DANILO, LUIS ALBERTO E Primary Care Unavailable JAIRO CH K Attending Unavailable CARRASCO, LUIS ALBERTO E Primary Care Unavailable JAIRO CH K Attending Unavailable CH, JAIRO K Referring Unavailable CARRASCO, LUIS ALBERTO E Primary Care Unavailable Gabriel, Norleena R Admitting Unavailable Gabriel, Norleena R Attending Unavailable Carrasco, Luis Alberto E Primary Care Unavailable Nkansah-Amankra, Rudi Referring Unavail able Franca Henning Admitting Unavail able Franca Henning Attending Unavail able Danilo Luis Alberto E Primary Care Unavailable Jaime Sharif Admitting Unavailable Jaime Sharif Attending Unavailable Carrasco, Luis Alberto E Primary Care Unavailable Gabriel, Norleena R Admitting Unavailable Gabriel, Norleena R Attending Unavailable Danilo, Luis Alberto E Primary Care Unavailable Justine Piedra Admitting Unavailable TadeoJustine huizar Attending Unavailable Carrasco, Luis Alberto E Primary Care Unavailable Ch, Jairo K Attending Unavailable Danilo, Luis Alberto E Primary Care Unavailable Jairo Ch K Admitting Unavailable Nkansah-Amankra, Rudi Admitting Unavail able Nkansah-Amankra, Rudi Attending Unavail able Carrasco, Luis Alberto E Primary Care Unavailable Allergies Allergy Classification Reported Allergen(s) Allergy Type Date of Onset Reaction(s) Facility (20 sources) fentaNYL; Translations: [Duragesic-100 PT72] Drug Allergy 9 Rash, Itching, Itching (finding), Eruption of skin (disorder) [facility] (7 sources) Hmg-Coa Reductase Inhibitors (Statins); Translations: [Statins] Allergy to drug (finding) Hives [place] [id number] DO Work Phone: (20 sources) Morphine; Translations: [morphine] Drug Allergy 5 Itching, Itching (finding) [facility] (20 sources) ranolazine; Translations: [Ranexa] Drug Allergy 3 Nausea Only [facility] [facility] DO Work Phone: (20 sources) fentaNYL; Translations: [FENTANYL] Drug Allergy 9 Itching, Itching, Comment:Freetex t Needs Updated. [facility] Comment on above: Onset Date: 04/08/20 15 (20 sources) Duragesic-75 Drug allergy 4 Unknown, [facility] (20 sources) atorvastatin; Translations: [atorvastatin] Drug Allergy 6 Unknown, [facility] Comment on above: Onset Date: 02/15/20 16 (20 sources) venlafaxine; Translations: [venlafaxine] Drug Allergy 4 Comment:tired, no appetite, Unknown [facility] (2 sources) Duragesic-100 Drug allergy 5 Comment:Freetex t Needs Updated. [facility] Other (20 sources) ranolazine; Translations: [ranolazine] Drug Allergy 3 [facility] (14 sources) HMG-CoA reductase inhibitor; Translations: [ELJRDAQ-ZAS-XJ A REDUCTASE INHIBITORS] Drug Allergy 3 [facility] Work Phone: (20 sources) vilanterol; Translations: [vilanterol] Drug Allergy 4 Dizziness (finding) [facility] (13 sources) Spironolactone; Translations: [SPIRONOLACTONE ] Drug Allergy 4 GI Upset, Myalgia [facility] Work Phone: (8 sources) fentaNYL; Translations: [fentanyl topical] Drug Allergy 9 [facility] (1 source) Morphine Drug Allergy 5 [facility] (1 source) venlafaxine Drug Allergy 5 [facility] Medications Current Medications Medication Drug Class(es) Dates Sig (Normalized) Sig (Original) acetaminophen 325 mg / oxyCODONE hydrochloride 5 mg oral tablet (1 source) Opioid Agonist Start: 09-05-2024 End: 09-08-2024 take 1 tablet by mouth every eight hours for pain acetaminophen-oxy codone 325 mg-5 mg Tab 1 tab(s), Oral, q8hr for pain for 3 day(s), 9 tab(s), Refill(s) 0, may take additional tylenol/acetamino phen, but do not exceed 3000mg total in 24 hours, [facility]/pharmacy #[id number], 159, cm, 09/03/24 19:32:00 EDT, Height/Length Dosing, 101.6, kg, 09/03/24 19:32:00 EDT, Weight Dosing Start Date: 09/05/24 Stop Date: 09/08/24 Status: Ordered Quantity: 9.0 Unit: tab(s) Repeat number: 1 Albuterol (Eqv-Ventolin HFA) 90 mcg/inh inhalation aerosol (4 sources) Start: 05-19-2024 Albuterol (Eqv-Ventolin HFA) 90 mcg/inh inhalation aerosol 2 inh, Inhalation, q6hr Shortness of breath or wheezing Start Date: 05/19/24 Status: Ordered Repeat number: 1 Start: 05-19-2024 Albuterol (Eqv -Ventolin HFA) 90 mcg/inh inhalation aerosol 2 inh Start Date: 05/19/24 Status: Ordered Repeat number: 1 Start: 05-19-2024 Albuterol (Eqv -Ventolin HFA) 90 mcg/inh inhalation aerosol 2 inh Start Date: 05/19/24 Status: Ordered albuterol-budesonide (Airsupra) 90-80 mcg/actuation inhaler (10 sources) take 2 puff(s) by inhalation every six hours albuterol-budesonide (Airsupra) 90-80 mcg/actuation inhaler Inhale 2 puffs every 6 hours if needed (for SOB). Active aspirin 81 mg delayed release oral tablet (20 sources) Platelet Aggregation Inhibitor, Nonsteroidal Anti-inflammatory Drug Start : 05-19 take 1 capsule by mouth once daily aspirin 81 mg oral capsule 81 mg = 1 cap(s), Oral, Daily Start Date: 05/19/24 Status: Ordered Repeat number: 1 Start: 10-28-2019 End: 10-27-2024 take 1 tablet by mouth once daily in the morning Start: 10-27-2017 End: 10-28-2019 take 1 tablet by mouth once daily Aspirin 325 mg Tablet Discontinued 325 MG PO Daily October 27, 2017 12:00am October 28, 2019 10:15am Comment on above: Take 81 mg by mouth. atorvastatin 40 mg oral tablet (20 sources) HMG-CoA Reductase Inhibitor Start: 10-28-2019 atorvastatin (LIPITOR) 40 mg tablet Atorvastatin Active 40 MG Oral Every evening October 28, 2019 9:10am 10/28/2019 Active Start: 10-28-2019 End: 10-01-2025 take 1 tablet by mouth once daily at bedtime Comment on above: Atorvastatin Active 40 MG Oral Every evening October 28, 2019 9:10am cefdinir 300 mg oral capsule (1 source) Cephalosporin Antibacterial Start: 06-05-19 Cefdinir 300 MG as directed Orally bid for 7 days May, Active cephalexin 500 mg oral capsule (2 sources) Cephalosporin Antibacterial Start: 09-04-19 End: 09-07-19 take 1 capsule by mouth every twelve hours Keflex 500 mg Cap 500 mg = 1 cap(s), Oral, q12hr, X 3 day(s), # 6 cap(s), Refills(s) 0, Pharmacy: [facility]/pharmacy #[id number], 159, cm, 09/03/24 6:55:00 EDT, Height/Length Dosing, 101.6, kg, 09/03/24 6:55:00 EDT, Weight Dosing Start Date: 09/03/24 Stop Date: 09/06/24 Status: Ordered Quantity: 6.0 Unit: cap(s) Repeat number: 1 docusate sodium 100 mg oral capsule (20 sources) Start: 06-04-19 take 1 capsule by mouth once daily as needed for constipation Start: 11-14-2017 End: 05-29-2018 take 1 capsule [...] Active donepezil hydrochloride 5 mg oral tablet (15 sources) Start: 08-30-2021 End: 09-24-2023 take 1 tablet by mouth once daily at bedtime donepezil (Aricept) 5 mg tablet Take 1 tablet (5 mg) by mouth once daily at bedtime. 08/30/2021 09/24/2023 Discontinued (Therapy completed) 120 actuat formoterol fumarate 0.005 mg/actuat / mometasone furoate 0.1 mg/actuat metered dose inhaler (4 sources) Corticosteroid , beta2-Adrenerg ic Agonist Start: 10-27-2024 Start: 03-30-2024 End: 10-27-2024 Mometasone-Formoterol (Duler a) 100-5 mcg/actuation HFA aerosol inhaler Discontinued 2 INH INHALATION Every 12 hours 06 04March 30, 2024 1:00am October 27, 2024 3:35pm furosemide 40 mg oral tablet (20 sources) Loop Diuretic Start: 07-22-2024 End: 07-22-2025 take 1 tablet by mouth once daily furosemide 40 mg Tab 40 mg = 1 tab(s), Oral, Daily, Refills(s) 0 Start Date: 09/04/24 Status: Ordered Repeat number: 1 Start: 05-05-2024 End: 05-05-2025 take 1 tablet by mouth once daily furosemide 20 mg Tab 20 mg = 1 tab(s), Oral, Daily Start Date: 05/19/24 Status: Ordered Repeat number: 1 Start: 10-27-2017 End: 10-25-2019 take 1 tablet by mouth once daily Furosemide (Lasix) 40 mg tablet Discontinued 40 MG PO Daily June 04, 2018 1:00am October 25, 2019 8:31am hydroCHLOROthiazide 12.5 mg / lisinopril 10 mg oral tablet (20 sources) Thiazide Diuretic, Angiotensin Converting Enzyme Inhibitor Start: 05-19-2024 hydrochlorothiazide-lisinopr il 12.5 mg-10 mg Tab 1 tab(s) Start Date: 05/19/24 Status: Ordered Repeat number: 1 Start: 12-15-2020 take 10-12.5 mg by mouth once lisinopril-hydroCHLOROthiazide (PRINZIDE,ZESTORETIC) 10-12.5 mg per tablet Take 1 tablet by mouth once daily. 12/15/2020 Active Start: 10-27-2017 End: 09-23-2024 take 1 tablet by mouth once daily lisinopriL-hydrochlorothiazide 10-12.5 m g tablet Indications: ASCVD (arteriosclerotic cardiovascular disease) , Essential hypertension TAKE 1 TABLET BY MOUTH EVERY DAY 90 tablet 3 08/04/2024 Active Comment on above: Take 1 tablet by janey th once daily. 24 hr isosorbide mononitrate 120 mg extended release oral tablet (20 sources) Nitrate Vasodilator Start: 10-27-2024 take 1 tablet by mouth once daily in the morning, then take 1 tablet by mouth every twenty-four hours Start: 09-04-2024 End: 09-04-2024 isosorbide mononitrate 60 mg ER Tab 120 mg = 2 tab(s), Tab-ER, Oral, Start date 09/04/24 7:30:00 AM EDT, 09/04/24 3:52:00 EDT Start Date: 09/04/24 Stop Date: 09/04/24 Status: Completed Repeat number: 1 Start: 03-21-2021 End: 09-23-2024 take 1 tablet by mouth once daily isosorbide mononitrate ER (Imdur) 120 mg 24 hr tablet Indications: ASCVD (arteriosclerotic cardiovascular disease) , Essential hypertension TAKE 1 TABLET BY MOUTH ONCE A DAY 90 tablet 3 08/04/2024 Active Start: 10-27-2017 End: 10-27-2024 take 1 tablet by mouth once daily, then take 1 tablet by mouth every twenty-four hours Isosorbide Mononitrate 60 mg Tablet Extended Release 24 Hr Discontinued 60 MG PO Daily October 27, 2017 12:00am October 27, 2024 3:25pm Comment on above: Take 120 mg by mouth once daily. latanoprost 0.05 mg/ml ophthalmic solution (11 sources) Prostaglandin Analog Start: 10-27-2024 take 1 drop(s) into the eye(s) once daily in the morning Start: 05-19-2024 latanoprost Op th 0.005% Ritu 1 drop(s) Start Date: 05/19/24 Status: Ordered Repeat number: 1 Start: 11-13-2021 take 1 drop(s) into the eye(s) once daily at bedtime latanoprost (XALATAN) 0.005 % ophthalmic solution Use 1 Drop in the right eye daily at bedtime. 2.5 mL 11 11/13/2021 Active Start: 11-13-2021 take 1 drop(s) into the eye(s) once daily at bedtime latanoprost (XALATAN) 0.005 % ophthalmic solution Use 1 Drop in the right eye daily at bedtime. 2.5 mL 11 11/13/2021 Active Comment on above: Use 1 Drop in the ri ght eye daily at bedtime. 24 hr metoprolol succinate 25 mg extended release oral tablet (20 sources) beta-Adrenergic Daya Start: 10-28-2019 End: 09-05-2024 take 1 tablet by mouth every twenty-four hours in the morning metoprolol succinate XL (Toprol-XL) 25 MG 24 hr tablet Take 25 mg by mouth in the morning. 09/18/2022 Active Start: 10-28-2019 End: 10-27-2024 take 1 tablet by mouth once daily in the morning Comment on above: Metoprolol Succinate Active 25 MG Oral Daily October 28, 2019 9:41am metroNIDAZOLE 7.5 mg/ml topi tika cream (18 sources) Nitroimidazole Antimicrobial Start: 08-05-2024 End: 12-08-2024 Start: 04-15-2024 End: 08-05-2024 Metronidazole 0.75 % cream D iscontinued 1 APPLIC TOPICAL Twice daily April 15, 2024 1:00am August 05, 2024 11:31am Mometasone-Formoterol (Duler a) 100-5 mcg/actuation HFA aerosol inhaler (8 sources) Start: 03-30-2024 Mometasone-For moterol (Dulera) 100-5 mcg/actuation HFA aerosol inhaler Active 2 INH INHALATION Every 12 hours 06 04March 30, 2024 1:00am Start: 11-25-2024 Mometasone-For moterol (Dulera) 100-5 mcg/actuation HFA aerosol inhaler Active 2 INH INHALATION Every 12 hours 1 March 30, 2024 12:00am nitroglycerin 0.4 mg sublingual powder (20 sources) Nitrate Vasodilator Start: 05-19-2024 nitroglyce rin 0.4 mg, SubLingual, q5min Start Date: 05/19/24 Status: Ordered Repeat number: 1 Start: 05-19-2024 nitroglycerin 0.4 mg Start Date: 05/19/24 Status: Ordered Repeat number: 1 Start: 05-19-2024 nitroglycerin 0.4 mg Start Date: 05/19/24 Status: Ordered Start: 11-14-2017 End: 11-14-2017 Nitroglycerin 0.4 mg tablet, sublingual Discontinued November 14, 2017 12:00am November 14, 2017 11:39am Start: 10-27-2017 End: 11-14-2017 Nitroglycerin 0.4 mg tablet, sublingual Active 0.4 MG SUBLINGUAL every 15 to 20 minutes as needed for chest pain October 27, 2017 12:00am Complies with drug therapy nitroglycerin (N itrostat) 0.4 MG SL tablet 1 tablet under tongue every 5 minutes for chest pain orally Active Comment on above: Dissolve 0.4 mg unde r the tongue at bedtime as needed. 24 hr oxybutynin chloride 5 mg extended release oral tablet (4 sources) Cholinergic Muscarinic Antagonist Start: 11-18-2024 End: 12-28-2024 take 1 tablet by mouth once daily in the morning Start: 10-19-2024 End: 10-27-2024 take 1 tablet by mouth once daily Oxybutynin Chloride 5 mg tablet extended release 24hr Discontinued 5 MG PO Daily October 19, 2024 12:00am October 27, 2024 3:30pm Take one tablet daily. potassium chloride 10 meq extended release oral tablet (20 sources) Start: 05-19-2024 take 1 tablet by mouth once daily Potassium Chloride (Rtl-Wrno-Dft 10) 10 mEq oral tablet, extended release 10 mEq = 1 tab(s), Oral, Daily Start Date: 05/19/24 Status: Ordered Repeat number: 1 Start: 05-19-2024 Potassium Chlo ride (Qia-Fbar-Xoo 10) 10 mEq oral tablet, extended release 10 mEq = 1 tab(s) Start Date: 05/19/24 Status: Ordered Repeat number: 1 Start: 05-19-2024 Tae gotti (Fiv-Wgnu-Tpw 10) 10 mEq oral tablet, extended release 10 mEq = 1 tab(s) Start Date: 05/19/24 Status: Ordered Start: 05-05-2024 End: 05-05-2025 take 1 tablet by mouth once daily in the morning Start: 10-27-2017 End: 10-25-2019 take 1 capsule by mouth once daily Potassium Chloride 10 mEq Capsule, Extended Release Discontinued 10 MEQ PO Daily October 27, 2017 12:00am October 25, 2019 8:32am spironolactone 25 mg oral tablet (20 sources) Aldosterone Antagonist Start: 10-25-2019 spironolactone (ALDACTONE) 25 mg tablet Spironolactone Active 25 MG Oral Daily October 25, 2019 6:35am 10/25/2019 Active Start: 10-25-2019 End: 09-23-2024 take 1 tablet by mouth once daily Spironolactone 25 mg Tablet Discontinued 25 MG PO Daily October 25, 2019 12:00am October 01, 2023 9:16am Comment on above: Spironolactone Activ e 25 MG Oral Daily October 25, 2019 6:35am tamsulosin hydrochloride 0.4 mg oral capsule (9 sources) alpha-Adrenergic Daya Start: 10-19-2024 take 1 capsule by mouth once daily in the morning Start: 07-16-2024 End: 09-05-2024 tamsulosin 0.4 mg Cap 0.4 mg = 1 cap(s), Cap, Oral, Start date 09/05/24 9:00:00 AM EDT, 09/04/24 3:51:00 EDT Start Date: 09/05/24 Stop Date: 09/05/24 Status: Completed Repeat number: 1 torsemide 20 mg oral tablet (5 sources) Loop Diuretic Start: 08-25-2024 End: 08-25-2025 take 1 tablet by mouth once daily in the morning traMADol hydrochloride 50 mg oral tablet (17 sources) Opioid Agonist Start: 02-20-2021 take 1 tablet by mouth every six hours as needed for pain traMADol HCl 50 MG 1 tablet as needed for pain Orally every 6 hrs for 7 days Feb, Active Comment on above: Take 50 mg by mouth every 6 hours as needed for pain. triamcinolone acetonide 0.055 mg/actuat metered dose nasal spray (9 sources) Corticosteroid Start: 08-25-2024 End: 10-27-2024 take 1 spray(s) nasal route once daily as needed 24 hr venlafaxine 75 mg extended release oral capsule (20 sources) Serotonin and Norepinephrine Reuptake Inhibitor Start: 11-15-2021 take 1 capsule by mouth every twenty-four hours in the morning venlafaxine XR (Effexor XR) 75 MG 24 hr capsule Take 150 mg by mouth in the morning. 0 11/15/2021 Active Start: 03-06-2021 End: 09-24-2023 take 1 capsule by mouth once daily venlafaxine ER (EFFEXOR XR) 150 mg 24 hr capsule Take 1 capsule by mouth once daily. 30 capsule 5 03/06/2021 Active Start: 03-06-2021 take 1 capsule by [facility] once daily venlafaxine ER (EFFEXOR XR) 37.5 mg 24 hr capsule Take 1 capsule by mouth once daily. Take 1 capsule daily for 1 week then increase to 2 capsules daily for 1 week then increase to 150 mg capsules and continue on that dose 21 capsule 03/06/2021 Active Comment on above: Take 1 capsule by [facility] once daily. Take 1 capsule daily for 1 week then increase to 2 capsules daily for 1 week then increase to 150 mg capsules and continue on that dose Take 1 capsule by [facility] once daily. Completed/Discontinued Medications Medication Drug Class(es) Dates Sig (Normalized) Sig (Original) [id number] 200 actuat albuterol 0.09 mg/actuat metered dose inhaler (20 sources) beta2-Adrenergic Agonist Start: 04-16-2018 take 2 puff(s) by inhalation every six hours as needed Proventil HFA 108 (90 Base) MCG/ACT 2 puffs as needed Inhalation every 6 hrs for 90 days Apr, Active Start: 04-16-2018 Start: 11-14-2017 take 2.5 mg by inhal ation every four hours as needed for wheezing Start: 11-14-2017 End: 03-30-2024 take 1 puff(s) by inhalation every four to six hours as needed for wheezing Albuterol Sulfate (Proair Hfa) 90 mcg/actuation HFA aerosol inhaler Discontinued 2 PUFF INHALATION EVERY 4-6 HOURS as needed for Shortness Of Breath Or Wheezing March 30, 2024 10:59am March 30, 2024 11:00am take 2.5 mg by inhal ation every [...] MG Inhalation Q4H November 14, 2017 10:03am 10 ml aminophylline 25 mg/ml injection (1 source) Start: 08-05-2024 End: 08-05-2024 50 mg, intravenous, Administer over 1 Minutes, Once, On Sat08/05/24 at 1015, For 1 dose Start: 08-05-2024 End: 08-05-2024 50 mg, intravenous, Administ er over 1 Minutes, Once, On Sat08/05/24 at 1015, For 1 dose [id number] Vcp-Qdwd-Nit-Asb-C (5 sources) Osmotic Laxative, Vitamin C Start: 08-31-2024 End: 10-02-2024 [id number] Ndr-Jzti-Ieo-Asb-C (Plenvu) 140-9-5.2 gram powder in packet, sequential Discontinued 140 ML PO .COMPLEX 1 August 31, 2024 12:00am October 02, 2024 7:00am First does at 4pm the day before the colonoscopy; second dose at 11pm the night before the colonoscopy. Start: 08-31-2024 [id number]-Urx Singh s-Otxm-Buo-Asb-C (Plenvu) 140-9-5.2 gram powder in packet, sequential Active 140 ML PO .COMPLEX 1 1 August 31, 2024 12:00am First does at 4pm the day before the colonoscopy; second dose at 11pm the night before the colonoscopy. atenolol 25 mg oral tablet (20 sources) beta-Adrenergic Daya Start: 10-27-2017 End: 06-04-2018 take 1 tablet by mouth once daily Atenolol 25 mg Tablet Discontinued 25 MG PO Daily October 27, 2017 12:00am June 04, 2018 11:46am Comment on above: Take 25 mg by mouth. azithromycin 250 mg oral tablet (20 sources) Macrolide Antimicrobial Start: 06-09-2024 End: 08-25-2024 Azithromycin 250 mg tablet Discontinued 0 PO daily 6 June 09, 2024 1:09pm August 25, 2024 10:43am Take 2 on day 1 and then take 1 for the next 4 days (days 2-5) Start: 01-14-2024 End: 03-30-2024 Azithromycin 250 mg tablet Discontinued 0 PO daily 6 January 14, 2024 12:00am March 30, 2024 10:40am Take 2 on day 1 and then take 1 for the next 4 days (days 2-5) Start: 01-14-2024 Azithromycin A ctive 0 PO daily 6 January 14, 2024 [...] tablet Discontinued 250 MG PO daily 4 4 October 27, 2017 12:00am November 14, 2017 11:21am First dose given in ED benoxinate hydrochloride 4 mg/ml / fluorescein sodium 2.5 mg/ml ophthalmic solution (2 sources) Diagnostic Dye Start: 12-27-2021 End: 12-27-2021 fluorescein-benoxinate 0.25-0.4 % 1 Drop (FLURESS) Start: 11-13-2021 End: 11-13-2021 fluorescein-benoxinate 0.25- 0.4 % 1 Drop (FLURESS) benzonatate 200 mg oral capsule (20 sources) Non-narcotic Antitussive Start: 06-26-2024 End: 08-25-2024 take 1 capsule by mouth twice daily as needed for cough Benzonatate 200 mg capsule Discontinued 200 MG PO Twice daily as needed for cough 22 02June 26, 2024 1:00am August 25, 2024 10:43am Start: 04-09-2020 Benzonatate 20 0 mg capsule Benzonatate Active 200 MG Oral Three times daily April 09, 2020 3:41pm 04/09/2020 Active Start: 04-09-2020 End: 08-26-2023 take 1 capsule by mouth three times daily as needed for cough Benzonatate 200 mg capsule Discontinued 200 MG PO Three times daily as needed for cough April 09, 2020 1:00am August 26, 2023 10:03am Comment on above: Benzonatate Active 2 00 MG Oral Three times daily April 09, 2020 3:41pm bimatoprost 0.1 mg/ml ophthalmic solution (20 sources) Prostaglandin Analog Start: 11-15-19 End: 11-14-19 take 1 drop(s) into the eye(s) once daily in the evening bimatoprost (LUMIGAN) 0.01 % drop ophthalmic drops Bimatoprost Active 1 DROPS Ophthalmic Every evening November 14, 2017 10:03am 0 11/14/2017 11/13/2021 Discontinued (Changing Therapy/Dosage Form) Start: 11-14-2017 End: 10-27-2024 take 0.01 drop(s) into the eye(s) once daily in the evening Bimatoprost (Lumigan) 0.01 % Drops Discontinued 1 DROPS OPHTHALMIC Every evening November 14, 2017 12:00am October 27, 2024 3:35pm take 1 drop(s) into the eye(s) once [...] Ophthalmic Every evening November 14, 2017 10:03am clopidogrel 75 mg oral tablet (20 sources) [id number] Platelet Inhibitor Start: 10-28-19 End: 10-28-19 take 1 tablet by mouth once daily Clopidogrel 75 mg Tablet Discontinued 75 MG PO Daily October 28, 2019 12:00am October 27, 2024 3:35pm Comment on above: Take 75 mg by mouth. diazePAM 5 mg oral tablet (20 sources) Benzodiazepine Start: 10-20-19 End: 10-28-19 Diazepam 5 mg tablet Discontinued 5 MG PO Once as needed for pain 02 12October 19, 2024 12:00am October 27, 2024 3:31pm Take 1 tab by mouth 30 min prior to MRI or radiation. Start: 10-28-2019 End: 07-22-2024 take 1 tablet by mouth twice daily Diazepam 2 mg Tablet Discontinued 2 MG PO Twice daily 10 October 28, 2019 12:00am March 30, 2024 11:05am Start: 10-27-2017 End: 10-25-2019 Diazepam 5 mg Tablet Discont inued 5 MG PO 2-3 TIMES PER DAY as needed for Anxiety October 27, 2017 12:00am October 25, 2019 12:28pm diazePAM (Valium ) 5 MG tablet 2 mg 1 (one) time each day at the same time. Active take 1 tablet by janey th every six hours as needed diazePAM (VALIUM) 5 mg tablet Take 5 mg by mouth every 6 hours as needed. Active take 1 tablet by janey th every twelve hours diazePAM 5 MG 1 tablet as needed Orally Twice a day Active Comment on above: Take 5 mg by mouth e very 6 hours as needed. doxycycline monohydrate 100 mg oral tablet (9 sources) Tetracycline-clas s Drug Start: 06-23-2024 End: 08-25-2024 take 1 tablet by mouth twice daily Doxycycline Monohydrate 100 mg tablet Discontinued 100 MG PO Twice daily 22 02June 23, 2024 1:00am August 25, 2024 10:43am Fluticasone Propion-Salmeterol (20 sources) Corticosteroid, beta2-Adrenergic Agonist Start: 11-14-2017 End: 05-29-2018 Fluticasone Propion-Salmeterol (Advair Diskus) 250-50 mcg/dose Blister With Device Discontinued 1 INH INHALATION Q12H November 14, 2017 11:03am May 29, 2018 10:29am Start: 11-14-2017 End: 05-29-2018 Fluticasone Propion-Salmeter ol (Advair Diskus) 250-50 mcg/dose Blister With Device Discontinued 1 INH INHALATION Q12H November 13, 2017 11:00pm May 29, 2018 9:29am Start: 11-14-2017 End: 05-29-2018 Fluticasone Propion-Salmeter ol [...] Device Discontinued 1 INH INHALATION Daily October 26, 2017 11:00pm May 29, 2018 9:28am Start: 10-27-2017 End: 05-29-2018 Fluticasone Propion-Salmeter ol (Advair Diskus) 250-50 mcg/dose Blister With Device Discontinued 1 INH INHALATION Daily October 27, 2017 12:00am May 29, 2018 10:28am Fluticasone Furoate-Vilanterol (15 sources) Corticosteroid, beta2-Adrenergic Agonist Start: 09-23-2023 End: 10-01-2023 take 1 puff(s) by inhalation once daily Fluticasone Furoate-Vilanterol (Breo Ellipta) 200-25 mcg/dose blister with device Discontinued 1 INH INHALATION Daily September 22, 2023 11:00pm October 01, 2023 8:16am [employer] puff Inhalation Once a day; Note: Source Status: Taking; Refills: 3; Provider: Magalie Espinoza Start: 09-23-2023 End: 10-01-2023 take 1 puff(s) [...] Feb, Active gabapentin 300 mg oral capsule (17 sources) Anti-epileptic Agent Start: 10-27-2017 End: 10-25-2019 take 1 capsule by mouth three times daily Gabapentin (Neurontin) 300 mg Capsule Discontinued 300 MG PO Three times daily October 27, 2017 12:00am October 25, 2019 8:31am meclizine hydrochloride 12.5 mg oral tablet (15 sources) Antiemetic Start: 07-15-2023 End: 10-19-2024 Meclizine 12.5 mg tablet Discontinued 12.5 MG PO 2-3 TIMES PER DAY as needed for dizziness July 15, 2023 12:00am October 19, 2024 10:51am Tiotropium-Olodater ol (17 sources) Anticholinergic, beta2-Adrenergic Agonist Start: 05-29-2018 End: 10-25-2019 Tiotropium-Olodat kelle (Stiolto Respimat) 2.5-2.5 mcg/actuation Mist Discontinued 2 PUFF INHALATION Daily May 29, 2018 10:31am October 25, 2019 7:34am Start: 05-29-2018 End: 10-25-2019 Tiotropium-Olodaterol (Stiol to Respimat) 2.5-2.5 mcg/actuation Mist Discontinued 2 PUFF INHALATION Daily May 29, 2018 12:00am October 25, 2019 6:34am Start: 05-29-2018 End: 10-25-2019 Tiotropium-Olodaterol (Stiol to Respimat) 2.5-2.5 mcg/actuation Mist Discontinued 2 PUFF INHALATION Daily May 29, 2018 1:00am October 25, 2019 7:34am omeprazole 20 mg delayed release oral capsule (20 sources) Proton Pump Inhibitor Start: 11-14-2017 omeprazo le (PRILOSEC) 20 mg capsule Omeprazole Active 20 MG Oral Daily November 14, 2017 10:03am 11/14/2017 Active Start: 11-14-2017 End: 10-27-2024 take 1 capsule by mouth once daily Omeprazole 20 mg capsule,delayed release(DR/EC) Discontinued 20 MG PO Daily July 15, 2024 8:30am October 27, 2024 3:35pm Comment on above: Omeprazole Active 20 MG Oral Daily November 14, 2017 10:03am ondansetron 4 mg disintegrating oral tablet (15 sources) Serotonin-3 Receptor Antagonist Start: 07-15-19 End: 08-26-19 take 1 tablet by mouth every eight hours as needed for nausea and vomiting Ondansetron 4 mg tablet,disintegratin g Discontinued 4 MG PO Q8H as needed for nausea and vomiting July 15, 2023 12:00am August 26, 2023 10:04am oxyCODONE hydrochloride 15 mg oral tablet (20 sources) Opioid Agonist Start: 05-29-19 End: 10-25-19 take 1 tablet by mouth three times daily Oxycodone 15 mg tablet Discontinued 15 MG PO Three times daily May 29, 2018 1:00am October 25, 2019 8:32am Start: 11-14-2017 End: 05-29-2018 take 1 tablet by mouth every four to six hours as needed for pain Oxycodone 10 mg Tablet Discontinued 10 MG PO EVERY 4-6 HOURS as needed for Pain November 14, 2017 12:00am May 29, 2018 10:34am predniSONE 20 mg oral tablet (20 sources) Start: 06-09-2024 End: 08-25-2024 take 1 tablet by mouth twice daily Prednisone 20 mg tablet Discontinued 20 MG PO Twice daily June 09, 2024 1:00am August 25, 2024 10:44am Start: 04-09-2020 End: 10-01-2023 take 1 tablet by mouth once daily Prednisone 50 mg tablet Discontinued 50 MG PO Daily 09 07April 09, 2020 1:00am October 01, 2023 9:16am Start: 11-14-2017 End: 05-29-2018 take 1 tablet by mouth once daily as needed Prednisone 10 mg Tablet Discontinued 10 MG PO Daily as needed for Allergic Symptoms November 14, 2017 12:00am May 29, 2018 10:31am Start: 10-27-2017 End: 11-14-2017 take 2 tablets by mouth once daily in the morning Prednisone 20 mg tablet Discontinued 40 MG PO Every morning 10 October 27, 2017 12:00am November 14, 2017 11:11am administer with food or milk Start: 10-27-2017 End: 11-14-2017 take 40 mg by mouth once daily in the morning Prednisone Discontinued 40 MG PO Every morning 02 07October 27, 2017 12:00am November 14, 2017 11:11am administer with food or milk 12 hr ranolazine 500 mg extended release oral tablet (17 sources) Anti-anginal Start: 06-04-2018 End: 10-25-2019 take 1 tablet by mouth twice daily Ranolazine (Ranexa) 500 mg tablet extended release 12 hr Discontinued 500 MG PO Twice daily 60 June 04, 2018 1:00am October 25, 2019 8:33am regadenoson (Lexiscan) injection 0.4 mg (1 source) Start: 08-05-2024 End: 08-05-2024 0.4 mg, intravenous, Once, On Sat08/05/24 at 1015, For 1 dose simvastatin 10 mg oral tablet (17 sources) HMG-CoA Reductase Inhibitor Start: 11-14-2017 End: 10-25-2019 take 1 tablet by mouth once daily in the evening Simvastatin 10 mg Tablet Discontinued 10 MG PO Every evening November 14, 2017 12:00am October 25, 2019 8:31am Tc-99m tetrofosmin (Myoview) injection 10 millicurie (1 source) Start: 08-05-2024 End: 08-05-2024 10 millicurie, intravenous, Once in imaging, Starting on Sat08/05/24 at 0832, For 1 dose, Administer 45 to 90 minutes prior to imaging unless otherwise indicated. Tc-99m tetrofosmin (Myoview) injection 30 millicurie (1 source) Start: 08-05-2024 End: 08-05-2024 30 millicurie, intravenous, Once in imaging, Starting on Sat08/05/24 at 1000, For 1 dose, Administer 45 to 90 minutes prior to imaging unless otherwise indicated. terazosin 5 mg oral capsule (17 sources) alpha-Adrenergic Daya Start: 11-14-2017 End: 10-25-2019 take 1 capsule by mouth once daily Terazosin 5 mg Capsule Discontinued 5 MG PO Daily November 14, 2017 12:00am October 25, 2019 8:33am 60 actuat tiotropium 0.0025 mg/actuat inhalation spray (20 sources) Anticholinergic Start: 10-01-2023 End: 10-27-2024 take 1 puff(s) by inhalation once daily Tiotropium Elma (Spiriva Respimat) 2.5 mcg/actuation mist Discontinued 2 PUFF INHALATION Daily 3 March 30, 2024 10:57am October 27, 2024 3:31pm Start: 09-07-2022 take 2 puff(s) by in halation once daily Spiriva Respimat 2.5 MCG/ACT inhaler USE 2 PUFFS DAILY 09/07/2022 Active Start: 03-21-2021 take 2 puff(s) by in halation once daily SPIRIVA RESPIMAT 2.5 mcg/actuation inhaler Inhale 2 Puffs as instructed once daily. 03/21/2021 Active Start: 03-21-2021 take 2 puff(s) by mo [facility] once daily Spiriva Respimat 2.5 MCG/ACT Inhalation Aerosol Solution INHALE 2 PUFFS BY MOUTH DAILY Quantity: 4 Refills: 0 Ordered: 21-Mar-2021 DO Start : 21-Mar-2021 Active Start: 10-25-2019 End: 09-23-2023 take 2.5 ug by inhalation once daily Tiotropium Elma (Spiriva Respimat) 2.5 mcg/actuation mist Discontinued 2.5 MCG INHALATION Daily October 25, 2019 12:00am September 23, 2023 9:31am Start: 10-25-2019 End: 10-25-2019 Tiotropium Elma (Spiriva Respimat) 2.5 mcg/actuation mist Discontinued INHALATION October 25, 2019 12:00am October 25, 2019 7:34am Start: 02-14-2018 take 2 puff(s) by in halation once daily Spiriva Respimat 2.5 MCG/ACT 2 puffs Inhalation Once a day for 30 days Feb, Active Start: 02-14-2018 Start: 10-27-2017 End: 05-29-2018 take 1 capsule by inhalation once daily Tiotropium Elma (Spiriva With Handihaler) 18 mcg Capsule, W/Inhalation Device Discontinued 1 CAP INHALATION Daily October 27, 2017 12:00am May 29, 2018 10:32am End: 07-22-2024 take 2 puff(s) by inhalation once daily Spiriva Respimat 2.5 mcg/actuation inhaler 2 puffs once daily. 07/22/2024 Discontinued (Therapy completed) Comment on above: Inhale 2 Puffs as in structed once daily. valACYclovir 1000 mg oral tablet (2 sources) Herpesvirus Nucleoside Analog DNA Polymerase Inhibitor, Herpes Simplex Virus Nucleoside Analog DNA Polymerase Inhibitor, Herpes Zoster Virus Nucleoside Analog DNA Polymerase Inhibitor Start: 10-22-2024 End: 10-27-2024 Valacyclovir (Valtrex) 1 gram tablet Discontinued 1000 MG PO Three times daily October 22, 2024 12:00am October 27, 2024 3:34pm Problems Active Problems Problem Classification Problem Date Documented Da te Episodic/Chronic Acute myocardial infarction (20 sources) Subsequent non-ST segment elevation myocardial infarction; Translations: [Subendocardial infarction, episode of care unspecified] Onset: 3 04-12-2023 Chronic Comment on above: x2 Acute posthemorrhagic anemia (1 source) Acute posthemorrhagic anemia; Translations: [Acute posthemorrhagic anemia] Onset: 5 Episodic Allergic reactions (4 sources) Inflammatory dermatosis; Translations: [Dermatitis, unspecified] 10-22-2024 Episodic Asthma (20 sources) Asthma; Translations: [Unspecified asthma, uncomplicated] 10-25-2019 Chronic Asthma (17 sources) Asthma 04-09-2020 Cancer of prostate (14 sources) Malignant neoplasm of prostate; Translations: [Malignant tumor of prostate] Onset: 5 10-07-2024 Chronic Cataract (1 source) After-cataract of bilateral eyes; Translations: [Other secondary cataract, bilateral] Chronic Chronic obstructive pulmonary disease and bronchiectasis (20 sources) Chronic obstructive lung disease; Translations: [Chronic airway obstruction, not elsewhere classified] Onset: 3 Resolved: 5 04-12-2023 Chronic Chronic obstructive pulmonary disease and bronchiectasis (13 sources) Bronchitis, not specified as acute or chronic; Translations: [Bronchitis] Episodic Conditions associated with dizziness or vertigo (18 sources) Benign paroxysmal positional vertigo; Translations: [Benign paroxysmal vertigo, unspecified ear] 07-22-2023 Episodic Congestive heart failure; nonhypertensive (1 source) Acute on chronic diastolic heart failure; Translations: [Acute on chronic diastolic (congestive) heart failure] Onset: 5 Chronic Coronary atherosclerosis and other heart disease (20 sources) Arteriosclerotic vascular disease; Translations: [Cardiovascular disease, unspecified] Onset: 3 10-25-2019 Chronic Comment on above: x2 Coronary atherosclerosis and other heart disease (5 sources) Aortocoronary bypass graft present; Translations: [Presence of aortocoronary bypass graft] Onset: 3 Episodic Diabetes mellitus with complications (20 sources) Hyperglycemia due to type 2 diabetes mellitus; Translations: [Type 2 diabetes mellitus with hyperglycemia] Onset: 4 Resolved: 5 08-26-2023 Chronic Diabetes mellitus without complication (1 source) Type 2 diabetes mellitus without complications; Translations: [Type 2 diabetes mellitus without complications] Onset: 5 Chronic Disorders of lipid metabolism (20 sources) Hyperlipidemia; Translations: [Other and unspecified hyperlipidemia] Onset: 3 10-25-2019 Chronic Esophageal disorders (4 sources) Gastroesophageal reflux disease 05-15-2024 Chronic Essential hypertension (20 sources) Hypertensive disorder; Translations: [Unspecified essential hypertension] Onset: 3 10-25-2019 Chronic Fluid and electrolyte disorders (5 sources) Hypo-osmolality and hyponatremia; Translations: [E87.1] Onset: 5 Episodic Gastrointestinal hemorrhage (12 sources) Hemorrhage of anus and rectum; Translations: [Rectal hemorrhage] Onset: 5 09-07-2024 Episodic Glaucoma (3 sources) Suspected bilateral glaucoma; Translations: [Preglaucoma, unspecified, bilateral] Chronic Hyperplasia of prostate (4 sources) Benign prostatic hypertrophy with outflow obstruction; Translations: [Benign prostatic hyperplasia with lower urinary tract symptoms] Onset: 5 07-16-2024 Chronic Immunizations and screening for infectious disease (6 sources) Contact with and (suspected) exposure to other viral communicable diseases; Translations: [Patient encounter status] Onset: 0 Episodic Osteoarthritis (6 sources) Osteoarthritis of left knee joint; Translations: [Unilateral primary osteoarthritis, left knee] 01-15-2024 Chronic Other and ill-defined heart disease (20 sources) Diastolic dysfunction; Translations: [Heart disease, unspecified] Onset: 3 04-12-2023 Chronic Other and ill-defined heart disease (4 sources) Other ill-defined heart diseases; Translations: [Other ill-defined heart diseases] Onset: 3 Chronic Other circulatory disease (1 source) Other specified symptoms and signs involving the circulatory and respiratory systems; Translations: [OTH SPEC SX SIGNS INVLV CIRC RS] Onset: 1 Episodic Other circulatory disease (5 sources) H/O: angina pectoris; Translations: [Personal history of other diseases of circulatory system] Episodic Other diseases of kidney and ureters (1 source) Urinary tract obstruction; Translations: [Other obstructive and reflux uropathy] Onset: 5 Episodic Other ear and sense organ disorders (1 source) Impacted cerumen, right ear Episodic Other hematologic conditions (20 sources) Raised cardiac enzyme or marker; Translations: [Other specified abnormalities of plasma proteins] 10-25-2019 Episodic Other inflammatory condition of skin (10 sources) Rosacea; Translations: [Rosacea, unspecified] 04-15-2024 Chronic Other inflammatory condition of skin (3 sources) Rosacea, unspecified; Translations: [Rosacea] 04-10-2024 Chronic Other injuries and conditions due to external causes (3 sources) Unspecified foreign body in pharynx causing other injury, initial encounter; Translations: [UNS FB PHAR CAUS OTH INJ INIT ENC] Onset: 1 Episodic Other lower respiratory disease (17 sources) Viral respiratory infection; Translations: [Other specified respiratory disorders] 04-09-2020 Episodic Other lower respiratory disease (10 sources) Dyspnea on exertion; Translations: [Other forms of dyspnea] Episodic Other lower respiratory disease (2 sources) Other forms of dyspnea Onset: 1 Resolved: 1 Episodic Other lower respiratory disease (1 source) Orthopnea; Translations: [Orthopnea] 07-22-2024 Episodic Other nervous system disorders (9 sources) Ulnar nerve entrapment at elbow; Translations: [Lesion of ulnar nerve, unspecified upper limb] Onset: 6 10-08-2022 Chronic Other nervous system disorders (9 sources) Carpal tunnel syndrome of left wrist; Translations: [Carpal tunnel syndrome, left upper limb] Onset: 6 10-08-2022 Chronic Other nervous system disorders (4 sources) Carpal tunnel syndrome Onset: 6 05-15-2024 Chronic Other nervous system disorders (12 sources) Paresthesia; Translations: [Paresthesia of skin] 05-15-2024 Episodic Other nervous system disorders (1 source) Postoperative pain ; Translations: [Other acute postprocedural pain] 06-11-2023 Episodic Other non-traumatic joint disorders (3 sources) Pain in left knee; Translations: [Pain in joint, lower leg] Episodic Other non-traumatic joint disorders (13 sources) Pain in wrist; Translations: [Pain in left wrist] 08-26-2023 Episodic Other non-traumatic joint disorders (3 sources) Pain in left wrist; Translations: [Pain in joint, forearm] 08-26-2023 Episodic Other non-traumatic joint disorders (2 sources) Pain of left wrist; Translations: [Pain in left wrist] 08-26-2023 Episodic Other nutritional; endocrine; and metabolic disorders (6 sources) Obesity; Translations: [Obesity, unspecified] Onset: 5 Chronic Other nutritional; endocrine; and metabolic disorders (20 sources) Body mass index 30+ - obesity; Translations: [Body mass index (BMI) 38.0-38.9, adult] Onset: 4 Resolved: 5 10-25-2019 Chronic Other nutritional; endocrine; and metabolic disorders (5 sources) Body mass index 40+ - severely obese; Translations: [Body mass index (BMI) 40.0-44.9, adult] Onset: 5 08-25-2024 Chronic Other nutritional; endocrine; and metabolic disorders (4 sources) Severe obesity; Translations: [Class 3 severe obesity with body mass index (BMI) of 40.0 to 44.9 in adult] 10-22-2024 Chronic Other nutritional; endocrine; and metabolic disorders (4 sources) Obesity caused by energy imbalance; Translations: [Morbid (severe) obesity due to excess calories] 10-22-2024 Chronic Other nutritional; endocrine; and metabolic disorders (2 sources) Body mass index (BMI) 37.0-37.9, adult; Translations: [Body mass index (BMI) 37.0-37.9, adult] Onset: 5 Chronic Other nutritional; endocrine; and metabolic disorders (2 sources) Body mass index (BMI) 40.0-44.9, adult; Translations: [Body mass index (BMI) 40.0-44.9, adult (Multi)] Onset: 5 Chronic Other nutritional; endocrine; and metabolic disorders (2 sources) Body mass index (BMI) 39.0-39.9, adult; Translations: [Body mass index (BMI) 39.0-39.9, adult] Onset: 4 Chronic Other screening for suspected conditions (not mental disorders or infectious disease) (20 sources) Raised prostate specific antigen; Translations: [Elevated prostate specific antigen [PSA]] Onset: 5 Episodic Other upper respiratory infections (14 sources) Acute pharyngitis, unspecified; Translations: [Acute maxillary sinusitis, unspecified] Onset: 1 Episodic Residual codes; unclassified (5 sources) Obstructive sleep apnea syndrome; Translations: [Obstructive sleep apnea (adult) (pediatric)] Onset: 5 05-15-2024 Chronic Residual codes; unclassified (1 source) Preoperative state 07-23-2024 Episodic Residual codes; unclassified (3 sources) Localized edema; Translations: [Localized edema] 08-11-2024 Episodic Residual codes; unclassified (8 sources) Family history of cancer of colon; Translations: [Family history of malignant neoplasm of digestive organs] 08-25-2024 Episodic Residual codes; unclassified (5 sources) Family history of malignant neoplasm of digestive organs; Translations: [Family history of malignant neoplasm of gastrointestinal tract] 08-25-2024 Episodic Screening and history of mental health and substance abuse codes (20 sources) Personal history of nicotine dependence; Translations: [Ex-smoker] Onset: 1 09-24-2023 Episodic Comment on above: quit 2008; Outside Source Comme nt: Comment on above: quit 2008; Unclassified (4 sources) Suspected bilateral glaucoma 05-15-2024 Unclassified (3 sources) Long-term current use of drug therapy 07-16-2024 Unclassified (5 sources) R35.89; Translations: [R35.89] Onset: 5 Urinary tract infections (1 source) Urinary tract infectious disease; Translations: [Urinary tract infection, site not specified] Onset: 5 Episodic Past or Other Problems Problem Classification Problem Date Documented Da te Episodic/Chronic Disorders usually diagnosed in infancy, childhood, or adolescence (13 sources) Tic disorder; Translations: [Tic disorder, unspecified] Onset: 02-20-2021 Resolved: 05-15-2024 Chronic Malaise and fatigue (17 sources) Fatigue; Translations: [Other malaise and fatigue] Onset: 04-12-2023 04-12-2023 Episodic Other connective tissue disease (1 source) Cramp and spasm; Translations: [Spasticity R25.2] Onset: 02-20-2021 Resolved: 02-20-2021 Episodic Other connective tissue disease (9 sources) Pain in right arm; Translations: [Pain in right arm] Onset: 12-28-2022 12-28-2022 Episodic Other lower respiratory disease (20 sources) Dyspnea; Translations: [Other respiratory abnormalities] Onset: 05-05-2024 10-27-2019 Episodic Other lower respiratory disease (2 sources) Shortness of breath; Translations: [Shortness of breath] Onset: 05-05-2024 Episodic Other nervous system disorders (1 source) Paresthesia of skin; Translations: [Paresthesia of upper and lower extremities of both sides R20.2] Onset: 02-20-2021 Resolved: 02-20-2021 Episodic Other nervous system disorders (1 source) Abnormal reflex; Translations: [Hyporeflexia R29.2] Onset: 02-20-2021 Resolved: 02-20-2021 Episodic Other non-traumatic joint disorders (5 sources) Pain in left hip; Translations: [PAIN IN LEFT HIP] Onset: 01-20-2021 Resolved: 02-20-2021 Episodic Residual codes; unclassified (5 sources) Localized edema; Translations: [Localized edema] Onset: 05-05-2024 Episodic Residual codes; unclassified (20 sources) Edema; Translations: [Edema, unspecified] Onset: 05-05-2024 05-05-2024 Episodic Residual codes; unclassified (6 sources) Edema, unspecified; Translations: [Edema] Onset: 05-05-2024 Episodic Spondylosis; intervertebral disc disorders; other back problems (9 sources) Low back pain; Translations: [Low back pain] Onset: 10-11-2016 10-08-2022 Episodic Unclassified (12 sources) Onset: 09-24-2023 Resolved: 12-29-2024 09-24-2023 Results Test Name Value Interpretation Reference Range Facility Appearance of UrineOrdered B y: Franca Balessayda on 12-14-2024 Appearance (U) Clear Normal Clear [facility] Comment on above: Order Comment: Name Collection Type:: Clean-Voided Midstream Performed By: #### U A #### [facility] [address] [place] [address] Bilirubin Test strip Ql (U)O rdered By: Franca Juvencio on 12-14-2024 Bilirubin Ql (U) Negative Negative [facility] Color of Urine by AutoOrdere d By: Franca Juvencio on 12-14-2024 Color (U) Yellow Normal Yellow [facility] Comment on above: Order Comment: Name Collection Type:: Clean-Voided Midstream Performed By: #### U A #### [facility] [address] [place] [address] Glucose [Mass/volume] in Uri ne by Test stripOrdered By: Franca Juvencio on 12-14-2024 Glucose Test strip (U) [Mass/Vol] Normal mg/dL Normal [facility] Hemoglobin Test strip Ql (U) Ordered By: Franca Juvencio on 12-14-2024 Hemoglobin Ql (U) Negative Negative [facility] Ketones [Presence] in Urine by Test stripOrdered By: Franca Juvencio on 12-14-2024 Ketones Ql (U) Negative Normal Negative [facility] Comment on above: Order Comment: Name Collection Type:: Clean-Voided Midstream Performed By: #### U A #### [facility] [address] [place] [address] Leukocyte esterase [Presence ] in Urine by Test stripOrdered By: Franca Balessayda on 12-14-2024 Leukocyte esterase Test strip Ql (U) Negative Normal Negative [facility] Comment on above: Order Comment: Name Collection Type:: Clean-Voided Midstream Performed By: #### U A #### [address] Nitrite Test strip Ql (U)Ord ered By: Franca Juvencio on 12-14-2024 Nitrite Ql (U) Negative Negative [facility] PSA Total (Not a Screen)on 0 12-14-2024 PSA Total (Not a Screen) 3.750 ng/mL Normal 0.000-4.00 0 [facility] Comment on above: Result Comment: Seri al tumor marker results determined by assays using different manufacturers or methods may not be comparable. [facility] merchandise stocker and method: [employer] DXI, CHEMILUMINESCENT IMMUNOASSAY. PERFORMED BY: [place] [address] PATHOLOGIST HL7 INTERFACE DEVELOPER IMAN SANTIAGO M.D. Performed By: #### T EST, PSATOTAL #### [address] Prostate specific Ag [Mass/v olume] in Serum or PlasmaOrdered By: Ken Rios on 12-14-2024 Prostate specific Ag [Mass/Vol] 3.750 ng/mL 0.000-4.000 [facility] Comment on above: Serial tumor marker results determined by assays using different manufacturers or methods may not be comparable.[facility] merchandise stocker and method:[employer] DXI, CHEMILUMINESCENT IMMUNOASSAY. Protein Test strip (U) [Mass /Vol]Ordered By: Franca Juvencio on 12-14-2024 Protein (U) [Mass/Vol] Negative Negative [facility] Specific gravity Test strip (U) [Rel density]Ordered By: Franca Juvencio on 12-14-2024 Specific gravity (U) [Rel density] 1.025 1.001-1.030 [facility] Testosteroneon 12-14-2024 Testosterone 1.70 ng/mL Low 1.75-7.81 [facility] Comment on above: Result Comment: PERF ORMED BY: [place] [address] PATHOLOGIST HL7 INTERFACE DEVELOPER IMAN SANTIAGO M.D. Performed By: #### T EST, PSATOTAL #### [facility] [address] [place] [address] Testosterone [Mass/volume] i n Serum or PlasmaOrdered By: Ken iRos on 12-14-2024 Testosterone [Mass/Vol] 1.70 ng/mL Low 1.75-7.81 [facility] Urinalysison 12-14-2024 Bilirubin,Urine Negative Normal Negative [facility] Comment on above: Order Comment: Name Collection Type:: Clean-Voided Midstream Performed By: #### U A #### [facility] [address] [place] [address] Glucose Ql (U) Normal Normal Normal [facility] Comment on above: Order Comment: Name Collection Type:: Clean-Voided Midstream Performed By: #### U A #### [facility] [address] [place] [address] [place] Nitrite,Urine Negative Normal Negative [facility] Comment on above: Order Comment: Name Collection Type:: Clean-Voided Midstream Performed By: #### U A #### [facility] [address] [place] [address] [place] Occult Blood,Urine Negative Normal Negative [facility] Comment on above: Order Comment: Name Collection Type:: Clean-Voided Midstream Result Comment: PERF ORMED BY: [place] [address] PATHOLOGIST HL7 INTERFACE DEVELOPER IMAN SANTIAGO M.D. Performed By: #### U A #### [facility] [address] [place] [address] Protein,Urine Negative Normal Negative [facility] Comment on above: Order Comment: Name Collection Type:: Clean-Voided Midstream Performed By: #### U A #### [facility] [address] [id number] [facility] Specificy [place],Urine 1.025 Normal 1.001-1.030 [facility] Comment on above: Order Comment: Name Collection Type:: Clean-Voided Midstream Performed By: #### U A #### [facility] [address] [id number] [facility] Urobilinogen,Urine 2 mg/dL Normal Normal [facility] Comment on above: Order Comment: Name Collection Type:: Clean-Voided Midstream Performed By: #### U A #### [facility] [address] [id number] [place] Urinalysis, manual onlyon Appearance (U) Clear Clear [facility] BILIRUBIN,URINE Negative Negative [facility] Color (U) Yellow Yellow [facility] Glucose Ql (U) Normal Normal mg/dL [facility] Ketones Ql (U) Negative Negative [facility] Leukocyte esterase Test strip Ql (U) Negative Negative [facility] NITRITE,URINE Negative Negative [facility] OCCULT BLOOD,URINE Negative Negative [facility] pH (U) 6.5 [pH] 5.0 - 9.0 [facility] PROTEIN,URINE Negative Negative mg/dL [facility] SPECIFICY GRAVITY,URINE 1.025 1.00 1 - 1.030 [facility] UROBILINOGEN,URINE 2 mg/dL Normal [facility] Name Collection Type:: Clean-Voided Midstream [facility] Urobilinogen Test strip (U) [Mass/Vol]Ordered By: Franca Henning on 12-14-2024 Urobilinogen (U) [Mass/Vol] 2 mg/dL High Normal [facility] pH of Urine by Test stripOrd ered By: Franca Henning on 12-14-2024 pH (U) 6.5 [pH] Normal 5.0-9.0 [facility] Comment on above: Order Comment: Name Collection Type:: Clean-Voided Midstream Performed By: #### U A #### [facility] [address] [phone] [place] Urinalysison 11-27-2024 Appearance (U) Clear Normal Clear [facility] Comment on above: Order Comment: Name Collection Type:: Clean-Voided Midstream Performed By: #### U A #### [place] [address] [place] Bilirubin,Urine Negative Normal Negative [facility] Comment on above: Order Comment: Name Collection Type:: Clean-Voided Midstream Performed By: #### U A #### [place] [address] [place] Color (U) Light-Yellow Normal Yellow [facility] Comment on above: Order Comment: Name Collection Type:: Clean-Voided Midstream Performed By: #### U A #### [place] [address] [place] Glucose Ql (U) Normal Normal Normal [facility] Comment on above: Order Comment: Name Collection Type:: Clean-Voided Midstream Performed By: #### U A #### [address] Ketones Ql (U) Negative Normal Negative [facility] Comment on above: Order Comment: Name Collection Type:: Clean-Voided Midstream Performed By: #### U A #### [place] [address] [place] Leukocyte esterase Test strip Ql (U) Negative Normal Negative [facility] Comment on above: Order Comment: Name Collection Type:: Clean-Voided Midstream Performed By: #### U A #### [place] [address] [place] Nitrite,Urine Negative Normal Negative [facility] Comment on above: Order Comment: Name Collection Type:: Clean-Voided Midstream Performed By: #### U A #### [place] [address] [place] Occult Blood,Urine Negative Normal Negative [facility] Comment on above: Order Comment: Name Collection Type:: Clean-Voided Midstream Result Comment: PERF ORMED BY: [place] [address] PATHOLOGIST HL7 INTERFACE DEVELOPER IMAN SANTIAGO M.D. Performed By: #### U A #### [facility] [address] [id number] [facility] pH (U) 7.0 [pH] Normal 5.0-9.0 [facility] Comment on above: Order Comment: Name Collection Type:: Clean-Voided Midstream Performed By: #### U A #### [facility] [address] [id number] [facility] Protein,Urine Negative Normal Negative [facility] Comment on above: Order Comment: Name Collection Type:: Clean-Voided Midstream Performed By: #### U A #### [address] Specificy [place],Urine 1.018 Normal 1.001-1.030 [facility] Comment on above: Order Comment: Name Collection Type:: Clean-Voided Midstream Performed By: #### U A #### [address] Urobilinogen,Urine Normal Normal Normal [facility] Comment on above: Order Comment: Name Collection Type:: Clean-Voided Midstream Performed By: #### U A #### [address] Urinalysis, manual onlyon Appearance (U) Clear Clear [facility] BILIRUBIN,URINE Negative Negative [facility] Color (U) Light-Yellow Yellow [facility] Glucose Ql (U) Normal Normal mg/dL [facility] Ketones Ql (U) Negative Negative [facility] Leukocyte esterase Test strip Ql (U) Negative Negative [facility] NITRITE,URINE Negative Negative [facility] OCCULT BLOOD,URINE Negative Negative [facility] pH (U) 7 [pH] 5.0 - 9.0 [facility] PROTEIN,URINE Negative Negative mg/dL [facility] SPECIFICY GRAVITY,URINE 1.018 1.00 1 - 1.030 [facility] UROBILINOGEN,URINE Normal Normal mg/dL [facility] Name Collection Type:: Clean-Voided Midstream [facility] Healthcare 07 Addendum Reporton 025 07 [place] [address]- Surgical Pathology Report Collected Date/Time: 09/03/2024 08:07 EDT Pathologist: Yasir FRANCIS PhD, Serge Valdivia Received Date/Time: 09/03/2024 09:34 EDT DARRON FRANCIS, DARRON FRANCIS, RUDI GRIJALVA 07 Addendum Report - 11/03/2024 06:54 EDT - Auth (Verified) Addendum Tissue block was selected by pathologist on 10/20/2024 for reference laboratory testing after reviewing the slides. The reference lab report ([employer] [facility] [employer] [place], Decipher Genomic Risk Results, Decipher score, [employer] was reviewed by pathologist. DECIPHER SCORE:0.45 GENOMIC RISK IS : INTERMEDIATE Risk of Metastasis 0.8%(5-year), 1.9% (10-year) Risk of Prostate Cancer Mortality 2.6% (15-year) Risk of Adverse Pathology 15.8% For complete report details, please see scanned results under Pathology documents/pathology report using this FIN account number. Information entered by at 10/30/2024 07:27:12 EDT. CPT CODE: 40713 (Electronic Signature) Serge Cooley MD PhD 11/03/2024 06:54 Addendum Reason Initial diagnosis remains unchanged. Add procedure result or create for billing purpose 07 Surgical Pathology Report - 09/07/2024 12:47 EDT - Auth (Verified) Final Diagnosis A: ??PROSTATE, RIGHT MEDIAL BASE, NEEDLE BIOPSY: - BENIGN PROSTATIC TISSUE. B: ??PROSTATE, RIGHT MEDIAL MID, NEEDLE BIOPSY: - BENIGN PROSTATIC TISSUE. C: ??PROSTATE, RIGHT MEDIAL APEX, NEEDLE BIOPSY: - BENIGN PROSTATIC TISSUE. D: ?PROSTATE, RIGHT LATERAL BASE, NEEDLE BIOPSY: - BENIGN PROSTATIC TISSUE. E: ?PROSTATE, RIGHT LATERAL MID, NEEDLE BIOPSY: - BENIGN PROSTATIC STROMAL TISSUE. F: ?PROSTATE, RIGHT LATERAL APEX, NEEDLE BIOPSY: - BENIGN PROSTATIC TISSUE. 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 Surgical Pathology Report Collected Date/Time: 09/03/2024 08:07 EDT Pathologist: Yasir FRANCIS PhD, Serge Valdivia Received Date/Time: 09/03/2024 09:34 EDT DARRON FRANCIS, DARRON FRANCIS, RUDI GRIJALVA Final Diagnosis H: ?PROSTATE, LEFT MEDIAL MID, NEEDLE BIOPSY: - BENIGN PROSTATIC TISSUE. I: ?PROSTATE, LEFT MEDIAL APEX, NEEDLE BIOPSY: - ATYPICAL SMALL ACINAR GLANDS. J: ?PROSTATE, LEFT LATERAL BASE, NEEDLE BIOPSY: - ACINAR ADENOCARCINOMA OF PROSTATE, NORRIS SCORE 3+4= 7, INVOLVING 1/1 CORE (APPROXIMATELY 23% OF TISSUE INVOLVEMENT). K: ?PROSTATE, LEFT LATERAL MID, NEEDLE BIOPSY: - ACINAR ADENOCARCINOMA OF PROSTATE, NORRIS SCORE 3+3= 6, INVOLVING 1/1 CORE (APPROXIMATELY 27% OF TISSUE INVOLVEMENT). L: ?PROSTATE, LEFT LATERAL APEX, NEEDLE BIOPSY: - ACINAR ADENOCARCINOMA OF PROSTATE, NORRIS SCORE 3+4= 7, INVOLVING 1/1 CORE (APPROXIMATELY 56% OF TISSUE INVOLVEMENT). M: PROSTATE, REGION OF INTEREST, NEEDLE BIOPSY: - ACINAR ADENOCARCINOMA OF PROSTATE, NORRIS SCORE 3+4= 7, INVOLVING 4/5 CORES (APPROXIMATELY 43% OF TISSUE INVOLVEMENT). (Electronic Signature) Serge Cooley MD PhD 09/07/2024 12:47 Diagnosis Comment Highest grade group: Mallard score 3+4=7, grade group 2. Highest percentage of core involvement: 56% Cribriform pattern 4: Not identified Highest percentage of Mallard pattern 4: Approximately 5% Clinical Information Elevated PSA Pre-Op Diagnosis: Elevated PSA Procedure: Transrectal ultrasound prostate biopsy Post-Op Diagnosis: _ Specimen(s) Received A.Right medial base prostate B.Right medial mid prostate C.Right medial apex prostate D.Right lateral base prostate E.Right lateral mid prostate F.Right lateral apex prostate G.Left medial base prostate H.Left medial mid prostate I.Left medial apex prostate J.Left lateral base prostate K.Left lateral mid prostate L.Left lateral apex prostate M.Region of interest Gross Description A: The specimen is received in formalin, labeled with patient name, number and right medial base prostate and consists of one cylindrical segment of montelongo soft tissue which measures 1.5 cm in length. The specimen is entirely submitted. Surgical Pathology Report Collected Date/Time: 09/03/2024 08:07 EDT Pathologist: Yasir FRANCIS PhD, Serge Valdivia Received Date/Time: 09/03/2024 09:34 EDT DARRON FRANCIS, DARRON FRANCIS, RUDI GRIJALVA Gross Description B: ??The specimen is received in formalin, labeled with patient name, number, and right medial mid prostate and consists of one cylindrical segment of montelongo soft tissue which measures 1.0 cm in length. The specimen is entirely submitted. C: ?The specimen is received in formalin, labeled with patient name, number, and right medial apex prostate and consists of one cylindrical segment of montelongo soft tissue which measures 1.0 cm in length. The specimen is entirely sub (more content not included)... Normal [facility] Comment on above: Performed By: #### C [id number] #### [facility] [address] [place] [address] Basic Metabolic Panelon 10-05 GFR/1.73 sq M.predicted MDRD (S/P/Bld) [Vol rate/Area] mL/min/{1.73_m2} Normal [facility] Comment on above: Performed By: #### C BC, BMP #### [facility] [address] [place] [address] [place] Basophils [#/volume] in Bloo d by Automated countOrdered By: Ken Rios on 10-27-2024 Basophils (Bld) [#/Vol] 0.1 10*3/uL Normal 0.0-0.2 [facility] Comment on above: Result Comment: PERF ORMED BY: [place] [address] PATHOLOGIST HL7 INTERFACE DEVELOPER IMAN SANTIAGO M.D. Performed By: #### C BC, BMP #### [facility] [address] [id number] [place] Basophils/100 leukocytes in Blood by Automated countOrdered By: Ken Rios on 10-27-2024 Basophils/100 WBC (Bld) 1.0 % Normal . [facility] Comment on above: Performed By: #### C BC, BMP #### [address] Calcium [Mass/volume] in Ser um or PlasmaOrdered By: Martileantoine Rios on 10-27-2024 Calcium [Mass/Vol] 8.9 mg/dL Normal 8.6-10.3 [facility] Comment on above: Result Comment: PERF ORMED BY: [place] [address] PATHOLOGIST HL7 INTERFACE DEVELOPER IMAN SANTIAGO M.D. Performed By: #### C BC, BMP #### [address] Carbon dioxide, total [Moles /volume] in Serum or PlasmaOrdered By: Martileantoine Rios on 10-27-2024 CO2 [Moles/Vol] 24.1 mmol/L Normal 21.0-31.0 [facility] Comment on above: Performed By: #### C BC, BMP #### [address] Chloride [Moles/volume] in S bubba or PlasmaOrdered By: Martileantoine Rios on 10-27-2024 Chloride [Moles/Vol] 104 mmol/L Normal 98-107 [facility] Comment on above: Performed By: #### C BC, BMP #### [address] Complete Blood Count Auto Di ffon 10-27-2024 Mean Corpuscular HGB Conc 33.1 g/dL Normal 32.5-35.6 [facility] Comment on above: Performed By: #### C BC, BMP #### [address] NRBC% 0.1 /100{WBC} Normal 0-0.5 [facility] Comment on above: Performed By: #### C BC, BMP #### [address] White Blood Count 7.6 [CFU]/mL Normal 4.1-10.5 [facility] Comment on above: Performed By: #### C BC, BMP #### [place] [address] [place] Creatinine [Mass/volume] in Serum or PlasmaOrdered By: Martileantoine Rios on 10-27-2024 Creatinine [Mass/Vol] 1.06 mg/dL Normal 0.70-1.30 [facility] Comment on above: Performed By: #### C BC, BMP #### [address] Eosinophils [#/volume] in Bl ood by Automated countOrdered By: Martileantoine Rios on 10-27-2024 Eosinophils (Bld) [#/Vol] 0.2 10*3/uL Normal 0.0-0.45 [facility] Comment on above: Performed By: #### C BC, BMP #### [place] [address] [place] Eosinophils/100 leukocytes i n Blood by Automated countOrdered By: Martileantoine Rios on 10-27-2024 Eosinophils/100 WBC (Bld) 2.2 % Normal . [facility] Comment on above: Performed By: #### C BC, BMP #### [place] [address] [place] Erythrocyte distribution wid th [Ratio] by Automated countOrdered By: Martileantoine Rios on 10-27-2024 Erythrocyte distribution width (RBC) [Ratio] 13.5 % Normal 12.0-14.8 [facility] Comment on above: Performed By: #### C BC, BMP #### [place] [address] [place] Erythrocytes [#/volume] in B lood by Automated countOrdered By: Martileantoine Rios on 10-27-2024 RBC (Bld) [#/Vol] 4.51 10*6/uL Normal 3.90-5.60 [facility] Comment on above: Performed By: #### C BC, BMP #### [address] Glucose [Mass/volume] in Ser um or PlasmaOrdered By: Ken Rios on 10-27-2024 Glucose [Mass/Vol] 100 mg/dL Normal 70-100 [facility] Comment on above: ADA recommended refe rence rangeRandom Glucose Reference Range is dependent on time and content of last meal. Glucose of more than 200 mg/dL in a nonstressed, ambulatory subject supports the diagnosis of Diabetes Mellitus. Result Comment: [place] om Glucose Reference Range is dependent on time and content of last meal. Glucose of more than 200 mg/dL in a nonstressed, ambulatory subject supports the diagnosis of Diabetes Mellitus. ADA recommended reference range Performed By: #### C BC, BMP #### [address] Hematocrit [Volume Fraction] of Blood by Automated countOrdered By: Ken Rios on 10-27-2024 Hematocrit (Bld) [Volume fraction] 41.8 % Normal 38.8-50.0 [facility] Comment on above: Performed By: #### C BC, BMP #### [address] Hemoglobin [Mass/volume] in BloodOrdered By: Ken Rios on 10-27-2024 Hemoglobin (Bld) [Mass/Vol] 13.9 g/dL Normal 13.0-17.0 [facility] Comment on above: Performed By: #### C BC, BMP #### [address] Leukocytes [#/volume] correc nick for nucleated erythrocytes in Blood by Automated counOrdered By: Ken Rios on 10-27-2024 WBC corrected for nucl RBC Auto (Bld) [#/Vol] 7.6 10*3/uL 4.1-10.5 [facility] Leukocytes [#/volume] in Blo od by Automated countOrdered By: Ken Riso on 10-27-2024 WBC (Bld) [#/Vol] 7.6 10*3/uL Normal 4.1-10.5 [facility] Comment on above: Performed By: #### C BC, BMP #### [facility] [address] Lymphocytes [#/volume] in Bl ood by Automated countOrdered By: Ken Rios on 10-27-2024 Lymphocytes (Bld) [#/Vol] 1.7 10*3/uL Normal 1.00-4.8 [facility] Comment on above: Performed By: #### C BC, BMP #### [address] Lymphocytes/100 leukocytes i n Blood by Automated countOrdered By: Ken Rios on 10-27-2024 Lymphocytes/100 WBC (Bld) 23.0 % Normal . [facility] Comment on above: Performed By: #### C BC, BMP #### [address] MCH [Entitic mass] by Automa nick countOrdered By: Ken Rios on 10-27-2024 MCH (RBC) [Entitic mass] 30.7 pg Normal 27.5-35.2 [facility] Comment on above: Performed By: #### C BC, BMP #### [address] MCHC Auto (RBC) [Mass/Vol]Or dered By: Ken Rios on 10-27-2024 MCHC (RBC) [Mass/Vol] 33.1 g/dL 32.5-35.6 [facility] MCV [Entitic volume] by Auto mated countOrdered By: Ken Rios on 10-27-2024 MCV (RBC) [Entitic vol] 92.7 fL Normal 83.5-101 [facility] Comment on above: Performed By: #### C BC, BMP #### [place] [address] [place] Monocytes [#/volume] in Bloo d by Automated countOrdered By: Ken Rios on 10-27-2024 Monocytes (Bld) [#/Vol] 0.7 10*3/uL Normal 0.0-0.8 [facility] Comment on above: Performed By: #### C BC, BMP #### [facility] [address] [place] [address] [place] Monocytes/100 leukocytes in Blood by Automated countOrdered By: Martileantoine Rios on 10-27-2024 Monocytes/100 WBC (Bld) 9.2 % Normal . [facility] Comment on above: Performed By: #### C BC, BMP #### [facility] [address] Neutrophils [#/volume] in Bl ood by Automated countOrdered By: Ken Rios on 10-27-2024 Neutrophils (Bld) [#/Vol] 4.9 10*3/uL Normal 1.8-7.7 [facility] Comment on above: Performed By: #### C BC, BMP #### [facility] [address] Neutrophils/100 leukocytes i n Blood by Automated countOrdered By: Ken Rios on 10-27-2024 Neutrophils/100 WBC (Bld) 64.6 % Normal . [facility] Comment on above: Performed By: #### C BC, BMP #### [facility] [address] No Panel InformationOrdered By: Ken Rios on 10-27-2024 Estimated GFR (CKD-EPI) > 60.0 mL/Min [facility] Creatinine Clearance (Chem N/A [facility] Nucleated erythrocytes [Pres ence] in Blood by Automated countOrdered By: Ken Rios on 10-27-2024 Nucleated RBC Auto Ql (Bld) 0.1 /100{WBC} 0-0.5 [facility] PSA Total (Not a Screen)on 0 10-27-2024 PSA Total (Not a Screen) 5.100 ng/mL High 0.000-4.00 0 [facility] Comment on above: Result Comment: Seri al tumor marker results determined by assays using different manufacturers or methods may not be comparable. [facility] merchandise stocker and method: [employer] DXI, CHEMILUMINESCENT IMMUNOASSAY. PERFORMED BY: [place] [address] PATHOLOGIST HL7 INTERFACE DEVELOPER IMAN SANTIAGO M.D. Performed By: #### T EST, PSATOTAL ####[facility] [address] Platelet mean volume [Entiti c volume] in Blood by Automated countOrdered By: Martileantoine Rios on 10-27-2024 Platelet mean volume (Bld) [Entitic vol] 9.8 fL Normal 6.6-10.1 [facility] Comment on above: Performed By: #### C BC, BMP #### [facility] [address] Platelets [#/volume] in Bloo d by Automated countOrdered By: Martileantoine Rios on 10-27-2024 Platelets (Bld) [#/Vol] 239 10*3/uL Normal 150-450 [facility] Comment on above: Performed By: #### C BC, BMP #### [facility] [address] Potassium [Moles/volume] in Serum or PlasmaOrdered By: Martileena Gabriel on 10-27-2024 Potassium [Moles/Vol] 4.3 mmol/L Normal 3.5-5.1 [facility] Comment on above: Performed By: #### C BC, BMP #### [facility] [address] [place] [address] Prostate specific Ag [Mass/v olume] in Serum or PlasmaOrdered By: Norleena Gabriel on 10-27-2024 Prostate specific Ag [Mass/Vol] 5.100 ng/mL High 0.000-4.000 [facility] Comment on above: Serial tumor marker results determined by assays using different manufacturers or methods may not be comparable.[facility] merchandise stocker and method:FOUR[employer] DXI, CHEMILUMINESCENT IMMUNOASSAY. Serum or plasma anion gap de terminationOrdered By: Norleena Gabriel on 10-27-2024 Anion gap [Moles/Vol] 16.2 mmol/L High 6.0-15.[address] [facility] Comment on above: Performed By: #### C BC, BMP #### [facility] [address] Sodium [Moles/volume] in Ser um or PlasmaOrdered By: Martileantoine Rios on 10-27-2024 Sodium [Moles/Vol] 140 mmol/L Normal 136-145 [facility] Comment on above: Performed By: #### C BC, BMP #### [address] Testosteroneon 10-27-2024 Testosterone 2.90 ng/mL Normal 1.75-7.81 [facility] Comment on above: Result Comment: PERF ORMED BY: [place] [address] PATHOLOGIST HL7 INTERFACE DEVELOPER IMAN SANTIAGO M.D. Performed By: #### T EST, PSATOTAL ####[facility] [place] [address] Testosterone [Mass/volume] i n Serum or PlasmaOrdered By: Ken Rios on 10-27-2024 Testosterone [Mass/Vol] 2.90 ng/mL 1.75-7.81 [facility] Urea nitrogen [Mass/volume] in Serum or PlasmaOrdered By: Martileantoine RiosGabriel on 10-27-2024 Urea nitrogen [Mass/Vol] 15 mg/dL Normal 7-25 [facility] Comment on above: Performed By: #### C BC, BMP #### [address] PET psma initial tx sb-mton 10-13-2024 PET psma initial tx sb-mt [place] [address] Nuclear Medicine Report Signed Patient: Víctor Nichols MR#: [id number] : 1950 Acct:[id number] Age/Sex: 73 / M ADM Date: 10/12/24 Loc: Room: Type: [facility] Attending Dr: Rudi Pinon MD Copies to: Stef MiglioriJr DO Kwabena Nkansah-Amankra, MD Ordering Provider: Rudi Pinon MD Date of Service: 10/12/24 PET/PET psma initial tx sb-mt: Prostate cancer PET/CT FUSION IMAGING PSMA (POSLUMA) CLINICAL INFORMATION: Prostate cancer COMPARISON : None TECHNIQUE: Noncontrasted CT scan from the base of the skull to the upper thigh followed by PET imaging. Multiplanar PET/CT fusion images. The F-18 POSLUMA amount : 8.25mCi. FINDINGS: Neck: No focal abnormal activity. Chest:No abnormal activity. Abdomen/pelvis: No abnormal activity is seen within the abdomen. Abnormal activity is seen involving the left aspect of the peripheral zone of the prostate gland consistent with the history. No avid lymph nodes are noted. Soft tissue/bones: No abnormal activity. CT findings: No pneumothorax. No pericardial or pleural effusions. No free air or free fluid. PET/PET psma initial tx sb-mt IMPRESSION: Abnormal activity involving the prostate gland consistent with the history. No evidence of local or distant metastatic disease. Impression dictated by: Stef Walker Jr., D.OJessica 10/13/2024 9:32 AM Dictation Location: [place] [address] Transcribed By: [facility] 10/13/24931 Dictated By: Stef Walker Jr, DO 10/13/24925 Signed By: 10/13/24931 Normal [facility] Sidra 10-08-2024 SAHRA Telephone (LEONA) VÍCTOR NICHOLS ([id number]) 1950 M Date Time Provider Department 10/08/24 [place] RUSHING During your visit today, we recorded the following information about you: Dora Naqvi RN 10/08/2024 2:48 PM Signed PSS: please schedule consult with Dr. Rushing -diagnosis Prostate cancer. Dr. Piedra is the referring physician. Patient is expecting our call. Thanks Dora Naqvi, Haven Orellana 10/08/2024 3:02 PM Signed Víctor states he is getting a PSMA on 10/13/24 so he wanted to come after that way. So Víctor is scheduled on 10/20/24 at 10:[address] Nazanin Orourke B PSS Allergies As of Date: 10/08/2024 Noted Allergy Reaction FENTANYL 05/29/2018 2 - Rash MORPHINE 05/29/2018 9 - Itching Date Reviewed: 2021 Reviewed by: Kristin Giraldo MD - Fully Assessed Reason for Visit: Appointment [[id number]] Prescriptions as of 10/08/2024 - latanoprost (XALATAN) 0.005 % ophthalmic solution Use 1 Drop in the right eye daily at bedtime. - SPIRIVA RESPIMAT 2.5 mcg/actuation inhaler Inhale [...] times daily April 09, 2020 3:41pm - clopidogrel (PLAVIX) 75 mg tablet Take 75 mg by mouth. - omeprazole (PRILOSEC) 20 mg capsule Omeprazole Active 20 MG Oral Daily November 14, 2017 10:03am - lisinopril-hydroCHLO ROthiazide (PRINZIDE,ZESTORETIC ) 10-12.5 mg per tablet Take 1 tablet [...] once daily. Problem List As Of Date: 10/08/2024 (None) Encounter Status:Closed by DORA NAQVI on 10/08/24 [facility] CNOVjohnathon 10-07-2024 CNOV Office Visit (FVUROL) VÍCTOR NICHOLS ([id number]) 1950 M Date Time Provider Department 10/07/24 1:10 PM CAMELIA PIEDRA During your visit today, we recorded the following information about you: Camelia Piedra MD 10/07/2024 1:35 PM Signed [facility] NEW PATIENT HISTORY AND PHYSICAL EXAM PATIENT INFO: Víctorsonal Nichols Sr. 73 year old REFERRING M.D.: No referring provider defined for this encounter. CHIEF COMPLAINT: HISTORY: 73 year old male with PMHx of DM, ASCVD, CHF, COPD, HTN, LUTS (on Flomax), presenting today for evaluation of prostate cancer Norris 7 (3+4) Grade group 2. 56% core involvement. Consulted to discuss possible RALP. After the prostate biopsy he was admitted to the hospital with severe bleeding from the rectum. Otherwise he is doing well. He does have severe lower extremity edema on the left side related to a knee problem. He supposed to have a knee replacement but that has been put on hold pending prostate cancer treatment. MRI of prostate 07/01/24 [facility] - prostate volume 25 mL. 11 x 7 mm lesion involving the posterior aspect of the left peripheral zone at the level of the mid gland extending into the apex. No gross extracapsular extension is seen. PI-RADS 4. S/p MRI fusion TRUS biopsy 09/03/24: Mallard 7 (3+4) Grade group 2. 56% core involvement. Cribriform not identified. 12/20 cores. LABS PSA 08/02/20 - 2.550 12/26/23 - 5.33 04/10/24 - 4.97 No results found for: PSA No results found for: CREAT PAST MEDICAL HISTORY Diagnosis Date ASCVD (arteriosclerotic cardiovascular disease) CHF (congestive heart failure) (HCC) COPD (chronic obstructive pulmonary disease) (HCC) Former smoker Hypertension PAST SURGICAL HISTORY Procedure Laterality Date APPENDECTOMY CARDIAC CATH COLONOSCOPY CORON ART, BYPASS/REOP >1 MON ORIG PERCUTANEOUS TRANSLUMINAL ANGIOPLASTY OF THE CAROTID ARTERY S/P CABG 12/28/2004 REMV CATARACT EXTRACAP,INSERT LENS Bilateral 2016 Social History Tobacco Use Smoking status: Former Current packs/day: 0.00 Types: Cigarettes Quit date: 2008 Years since quittin.4 Smokeless tobacco: Never Vaping Use Vaping status: Never Used Substance Use Topics Alcohol use: Yes Comment: occasionally Drug use: Never REVIEW OF SYSTEMS: (positive in bold) GENERAL: Recent weight gain/loss, fatigue, weakness, fever, night sweats MUSCLE/JOINTS/BONE: Back pain, joint pain, joint swelling CARDIOVASCULAR: Chest pain, heart attack GASTROINTESTINAL: Abdominal pain, fecal incontinence HEAD AND NECK: Blurry vision, double vision, cataracts, loss of vision, dryness NEUROLOGIC: Numbness, tingling SKIN: Redness, rash, nodules/bumps, hair loss, color change in hands or feet RESPIRATORY: Cough, shortness of breath ENDOCRINE: Diabetes, thyroid problems THROAT: Frequent sore throats, hoarseness PHYSICAL EXAM: Patient is short and uses a cane. Has severe edema on the left lower leg. No acute distress, appears stated age, alert and oriented x 3 Breathing comfortably on room air without use of accessory muscles or cyanosis Abdomen is protuberant but no masses or significant scars Appears well-perfused No obvious focal neurologic deficits IMPRESSION/PLAN: 73-year-old gentleman with intermediate risk prostate cancer. Overall given his age and comorbidity he is at significant risk from robotic prostatectomy. We talked once again about the pros and cons of surgery versus radiation. We talked about the possibility of brachytherapy as an alternative. He is leaning towards radiation or brachytherapy. Will put in a referral for local radiation oncologist who can do brachytherapy. The risks, benefits and alternatives of a robotic radical prostatectomy were discussed with the patient. These include, but are not limited to bleeding, infection, injury to adjacent structures (such as the rectum, bowel, or major blood vessels). There can also be wound infections, hernias and rarely chronic neuropathic pain or numbness. We also talked about medical complications, such as cardiac (PA, etc), respiratory (pneumonia, etc), renal (Acute kidney injury, etc), Blood clots (DVTs, PEs, etc), as well as other complications. We talked about the possibility of urine leak requiring prolonged catheterization, urinary incontinence (usually self-limited but can be prolonged requiring intervention) and erectile dysfunction (which depends on baseline erectile function and the possibility of nerve preservation). Patient understood these risks, questions were answered. PATIENT INSTRUCTIONS: Recording using [employer] software for draft documentation of the visit was discussed with the patient/authorized account services representative; all questions welcomed and answered. Patient/authorized account services representative agreed to proceed By signing my name (more content not included)... Normal [facility] Basophils Auto (Bld) [#/Vol] on 09-11-2024 Basophils (Bld) [#/Vol] Automated basoph il count 0.0-0.1 [facility] Basophils (Bld) [#/Vol] 0.1 10 3/uL 0.0-0.1 [facility] Basophils/100 WBC Auto (Bld) on 09-11-2024 Basophils/100 WBC (Bld) Automated basophil % 0. 2-2.0 [facility] Basophils/100 WBC (Bld) 0.9 % 0.2-2.0 [facility] Eosinophils/100 WBC Auto (Bl d)on 09-11-2024 Eosinophils/100 WBC (Bld) Automated eosinophil % 0.9-7.0 [facility] Eosinophils/100 WBC (Bld) 4.1 % 0.9-7.0 [facility] Erythrocyte distribution wid th Auto (RBC) [Ratio]on 09-11-2024 Erythrocyte distribution width (RBC) [Ratio] Erythrocyte distribution width [Ratio] by Automated count 11.0-15.0 [facility] Erythrocyte distribution width (RBC) [Ratio] 13.2 % 11.0-15.0 [facility] Estimated glomerular filtrat ion rate (GFR) non- Americanon 09-11-2024 GFR/1.73 sq M.predicted among non-blacks MDRD (S/P/Bld) [Vol rate/Area] Estimated glomerular filtration rate (GFR) non- >=60 mL/min/1.73m 2 [facility] GFR/1.73 sq M.predicted among non-blacks MDRD (S/P/Bld) [Vol rate/Area] mL/min/{1.73_m2} >=60 mL/min/1.73m 2 [facility] Globulin Calc (S) [Mass/Vol] on 09-11-2024 Globulin (S) [Mass/Vol] Serum globulin measurement by calculation (mass/volume) [facility] Globulin (S) [Mass/Vol] 3.0 g/dL F [facility] Hematocrit Auto (Bld) [Volum e fraction]on 09-11-2024 Hematocrit (Bld) [Volume fraction] Hematocrit [Volume Fraction] of Blood by Automated count Low 42.0-54.0 [facility] Hematocrit (Bld) [Volume fraction] 34.5 % Low 42.0-54.0 [facility] Hemoglobin [Mass/volume] in Bloodon 09-11-2024 Hemoglobin (Bld) [Mass/Vol] Hemoglobin [Mass/volume] in Blood Low 14.0-18.0 [facility] Hemoglobin (Bld) [Mass/Vol] 11.2 g/dL Low 14.0-18.0 [facility] Laboratory - Chemistry and C hemistry - challengeon 09-11-2024 Albumin [Mass/Vol] 3.6 g/dL 3.4-5.0 [facility] ALP [Catalytic activity/Vol] 58 U/L 46-116 [facility] ALT [Catalytic activity/Vol] 33 U/L 16-63 [facility] AST [Catalytic activity/Vol] 14 U/L Low 15-37 [facility] Bilirubin [Mass/Vol] 0.3 mg/dL 0.2-1.0 [facility] Calcium [Mass/Vol] 9.1 mg/dL 8.5-10.1 [facility] Chloride [Moles/Vol] 101 mmol/L 98-107 [facility] CO2 [Moles/Vol] 30.5 mmol/L 21.0-32.0 [facility] Creatinine [Mass/Vol] 1.18 mg/dL 0.70-1.30 [facility] GFR/1.73 sq M.predicted MDRD (S/P/Bld) [Vol rate/Area] mL/min/{1.73_m2} >=60 mL/min/1.73m 2 [facility] Glucose [Mass/Vol] 115 mg/dL High 74-106 [facility] Potassium [Moles/Vol] 3.9 mmol/L 3.5-5.1 [facility] Protein [Mass/Vol] 6.6 g/dL 6.4-8.2 [facility] Sodium [Moles/Vol] 137 mmol/L 136-145 [facility] Urea nitrogen [Mass/Vol] 21.0 mg/dL High 7.0-18.0 [facility] Urea nitrogen/Creatinine [Mass ratio] 17.8 mg/mg [facility] Laboratory - Hematology and Cell countson 09-11-2024 Immature granulocytes/100 WBC (Bld) 0.9 % High 0.0-0.5 [facility] Leukocytes [#/volume] correc nick for nucleated erythrocytes in Blood by Automated counon 09-11-2024 WBC corrected for nucl RBC Auto (Bld) [#/Vol] Leukocytes [#/volume] corrected for nucleated erythrocytes in Blood by Automated coun 4.0-11.0 [facility] WBC corrected for nucl RBC Auto (Bld) [#/Vol] 6.8 10 3/uL 4.0-11.0 [facility] Lymphocytes Auto (Bld) [#/Vo l]on 09-11-2024 Lymphocytes (Bld) [#/Vol] Lymphocytes [#/volume] in Blood by Automated count 1.2-3.8 [facility] Lymphocytes (Bld) [#/Vol] 1.9 10 3/uL 1.2-3.8 [facility] Lymphocytes/100 WBC Auto (Bl d)on 09-11-2024 Lymphocytes/100 WBC (Bld) Lymphocytes/100 leukocytes in Blood by Automated count 20.5-60.0 [facility] Lymphocytes/100 WBC (Bld) 28.6 % 20.5-60.0 [facility] MCH Auto (RBC) [Entitic mass ]on 09-11-2024 MCH (RBC) [Entitic mass] MCH [Entitic ma ss] by Automated count 25.9-34.0 [facility] MCH (RBC) [Entitic mass] 31.5 pg 25.9-34.0 [facility] MCHC Auto (RBC) [Mass/Vol]on 09-11-2024 MCHC (RBC) [Mass/Vol] MCHC [Mass/volume] by Automated count 29.9-35.2 [facility] MCHC (RBC) [Mass/Vol] 32.5 g/dL 29.9-35.2 [facility] MCV Auto (RBC) [Entitic vol] on 09-11-2024 MCV (RBC) [Entitic vol] MCV [Entitic vol ume] by Automated count High 80.0-94.0 [facility] MCV (RBC) [Entitic vol] 97.2 fL High 80.0-94.0 [facility] Monocytes Auto (Bld) [#/Vol] on 09-11-2024 Monocytes (Bld) [#/Vol] Automated blood monocyte count 0.3-0.8 [facility] Monocytes (Bld) [#/Vol] 0.8 10 3/uL 0.3-0.8 [facility] Monocytes/100 WBC Auto (Bld) on 09-11-2024 Monocytes/100 WBC (Bld) Automated monocyte % 1. 7-12.0 [facility] Monocytes/100 WBC (Bld) 11.9 % 1.7-12.0 F [facility] Neutrophils Auto (Bld) [#/Vo l]on 09-11-2024 Neutrophils (Bld) [#/Vol] Neutrophils [#/volume] in Blood by Automated count 1.4-6.5 [facility] Neutrophils (Bld) [#/Vol] 3.6 10 3/uL 1.4-6.5 [facility] Neutrophils/100 WBC Auto (Bl d)on 09-11-2024 Neutrophils/100 WBC (Bld) Automated neutrophil % 43.0-75.0 [facility] Neutrophils/100 WBC (Bld) 53.6 % 43.0-75.0 [facility] No Panel Informationon 09-11 Eosinophils # (Auto) 0.3 10 3/uL 0.0-0.7 [facility] Immature Granulocyte # (Auto) 0.06 10 3/uL High 0.00-0.03 [facility] Platelet mean volume Auto (B ld) [Entitic vol]on 09-11-2024 Platelet mean volume (Bld) [Entitic vol] Platelet mean volume [Entitic volume] in Blood by Automated count 9.5-13.5 [facility] Platelet mean volume (Bld) [Entitic vol] 10.6 fL 9.5-13.5 [facility] Platelets Auto (Bld) [#/Vol] on 09-11-2024 Platelets (Bld) [#/Vol] Platelets [#/vol ume] in Blood by Automated count 150-450 [facility] Platelets (Bld) [#/Vol] 264 10 3/uL 150-450 [facility] RBC Auto (Bld) [#/Vol]on RBC (Bld) [#/Vol] Erythrocytes [#/volume] in Blood by Automated count Low 4.70-6.10 [facility] RBC (Bld) [#/Vol] 3.55 10 6/uL Low 4.70-6.10 [facility] Serum or plasma albumin/glob ulin mass ratioon 09-11-2024 Albumin/Globulin [Mass ratio] Serum or plasma albumin/globulin mass ratio [facility] Albumin/Globulin [Mass ratio] 1.2 {ratio} [facility] Serum or plasma anion gap de terminationon 09-11-2024 Anion gap [Moles/Vol] Serum or plasma anion gap determination [facility] Anion gap [Moles/Vol] 9.4 mmol/L [facility] Ambulatory Visit Summaryon 0 09-10-2024 Ambulatory Visit Summary Ambulatory Visi t Summary SIMONE THOMPSON, VÍCTOR [place]ak :1950 Visit Date:09/10/2024 Ambulatory Visit Instructions Your Diagnosis Prostate cancer BPH with urinary obstruction Antiplatelet or antithrombotic long-term use Shortness of breath Erectile dysfunction Your Care Team Attending Physician - DARRON FRANCIS, RUDI Primary Care Physician - LUIS ALBERTO CARRASCO MD This Is Your Medications List tamsulosin (tamsulosin 0.4 mg Cap) Contact prescribing physician if questions or concerns albuterol (Albuterol (Eqv-Ventolin HFA) 90 mcg/inh inhalation aerosol) aspirin (aspirin 81 mg oral capsule) atorvastatin (atorvastatin 40 mg Tab) clopidogrel (clopidogrel 75 mg Tab) docusate (docusate sodium 100 mg Cap) furosemide (furosemide 40 mg Tab) hydrochlorothiazide- lisinopril (hydrochlorothiazide -lisinopril 12.5 mg-10 mg Tab) isosorbide mononitrate (isosorbide mononitrate 120 mg ER Tab) latanoprost ophthalmic (latanoprost Opth 0.005% Ritu) metoprolol (metoprolol succinate 25 mg ER Tab) nitroglycerin omeprazole (omeprazole 20 mg Cap-DR) potassium chloride (Potassium Chloride (Anf-Lrdr-Oqg 10) 10 mEq oral tablet, extended release) Procedures Performed Transrectal biopsy of prostate using ultrasound guidance (09/03/2024), Discission of secondary membranous cataract (opacified posterior lens capsule and/or anterior hyaloid); laser surgery (eg, YAG laser) (1 or more stages) (10/09/2021), Appendectomy, Arthroscopic procedure of knee joint, Cardiac catheterization, Carpal tunnel release, Coronary artery bypass graft, History of tonsillectomy, Percutaneous transluminal coronary angioplasty, Procedure on neck. Discharge Vitals Heart Rate (Peripheral) 78 Blood Pressure 140/84 Height 157 cm Height 62 in Weight 96 kg Weight 211.644 lb BMI 38.95 What to do next You Need to Schedule the Following Appointments Follow Up with DARRON FRANCIS, JUDI GRIJALVA When: Where: Someone Will Contact You Regarding These Appointments [facility] External Ambulatory Referral, Other Referral, Rad Onc - Dr. Rios, 09/10/24 10:56:00 EDT, Prostate cancer [facility] External Ambulatory Referral, Urology, Dr. Piedra at [facility] due to cardiac comorbidites, 09/10/24 10:57:00 EDT, Prostate cancer Medications What How Much When Why Instructions Unchanged tamsulosin (tamsulosin 0.4 mg Cap) 1 Capsules By Mouth Every day BPH with urinary obstruction Unchanged albuterol (Albuterol (Eqv-Ventolin HFA) 90 mcg/ inh inhalation aerosol) 2 Inhalation Inhalation Every 6 hours as needed for Shortness of breath or wheezing Contact prescribing physician if questions or concerns Unchanged aspirin (aspirin 81 mg oral capsule) 1 Capsules By Mouth Every day Contact prescribing physician if questions or concerns Unchanged atorvastatin (atorvastatin 40 mg Tab) 1 Tablets By Mouth Every day Contact prescribing physician if questions or concerns Unchanged clopidogrel (clopidogrel 75 mg Tab) 1 Tablets By Mouth Every day Contact prescribing physician if questions or concerns Unchanged docusate (docusate sodium 100 mg Cap) 1 Capsules By Mouth Every day as needed for for constipation Contact prescribing physician if questions or concerns Unchanged furosemide (furosemide 40 mg Tab) 1 Tablets By Mouth Every day Contact prescribing physician if questions or concerns Unchanged hydrochlorothiazide- lisinopril (hydrochlorothiazide -lisinopril 12.5 mg-10 mg Tab) 1 Tablets By Mouth Every day Contact prescribing physician if questions or concerns Unchanged isosorbide mononitrate (isosorbide mononitrate 120 mg ER Tab) 1 Tablets By Mouth Once a day (in the morning) Contact prescribing physician if questions or concerns Unchanged latanoprost ophthalmic (latanoprost Opth 0.005% Ritu) 1 Drops Contact prescribing physician if questions or concerns Unchanged metoprolol (metoprolol succinate 25 mg ER Tab) 1 Tablets By Mouth Every day Contact prescribing physician if questions or concerns Unchanged nitroglycerin 0.4 Milligram Sublingual Every 5 minutes Contact prescribing physician if questions or concerns Unchanged omeprazole (omeprazole 20 mg Cap-DR) 1 Capsules By Mouth Every day Contact prescribing physician if questions or concerns Unchanged potassium chloride (Potassium Chloride (Ftc-Pyjx-Qfb 10) 10 mEq oral tablet, extended release) 1 Tablets By Mouth Every day Contact prescribing physician if questions or concerns Allergies atorvastatin (Hives, Unknown) fentanyl topical (Itching, Unknown, Eruption, Rash) morphine (Unknown, Itching, Itching) ranolazine (Unknown, Hives) venlafaxine (Unknown, Comment:tired, no appetite) vilanterol (Dizziness) Problems Ongoing - Any problem that you are currently receiving treatment for. Antiplatelet or antithrombotic long-term use Arteriosclerotic vascular disease Asthma BPH with urinary obstruction CAD (coronary artery disease) Cardiac enzyme or marker above reference range Carpa (more content not included)... Normal [facility] Urology Office/Clinic Noteon 09-10-2024 Urology Office/Clinic Note Urology Office/Clinic Note Chief Complaint follow up HPI Staff 73 year old male here for path review S/P fusion bx 09/03/24 Previous Dx: Elevated psa, bph with luts Flomax 0.4mg qd started at last visit Patient denies any dysuria or gross hematuria. Denies any flank or abdomen pain. History of Present Illness Tests reviewed: reviewed hospital records, CT, path. I have reviewed the previous health record information and history for this patient from Dr. Bridges I have reviewed and verified the staff HPI to be accurate for this encounter. There have been no associated fever, chills, flank pain, or blood in the urine. Denies any urinary infections since last encounter. Review of Systems ROS - Provider Constitutional: denies weight loss, denies hot flashes. Eyes: denies eye problems. Gastrointestinal: denies nausea, denies vomiting. Cardiovascular: denies chest pain or angina. Integumentary: no dryness Musculoskeletal: denies musculoskeletal symptoms. ENMT: denies otolaryngeal symptoms. Respiratory: no shortness of breath. Heme/Lymph: denies easy bleeding tendency, denies easy bruising tendency. Psychiatric: no confusion, no anxiety. Genitourinary: See HPI. Physical Exam Vitals & Measurements HR: 78(Peripheral) BP: 140/84 HT: 62 in HT: 157 cm WT: 96 kg WT: 211.644 lb BMI: 38.95 General Appearance: alert, no distress, well nourished, well developed male. Assessment/Plan 73 yo male initially referred by Dr. Luis Alberto Carrasco for elevated PSA. Former smoker. Here to review path. S/p appendectomy 1971. Portions of this record may have been created with voice recognition artificial intelligence software, specifically [employer] and or [employer]. Substitutions may have occurred due to the inherent limitations of voice recognition and artificial intelligence software. 1. Prostate cancer (C61: Malignant neoplasm of prostate) PSA 08/02/20 - 2.550 12/26/23 - 5.33 04/10/24 - 4.97 No family history of prostate cancer. KAYLENE 05/19/24 by Candy Piedra ~benign. [place] of prostate 07/01/24 [facility] [place] volume 25 mL. 11 x 7 mm lesion involving the posterior aspect of the left peripheral zone at the level of the mid gland extending into the apex. No gross extracapsular extension is seen. PI-RADS 4. S/p MRI fusion TRUS biopsy 09/03/24. Allan removed 09/07/24. Pt presented to [facility] 09/03/24 due to rectal bleeding. CT AP w con 09/03/24 - no abnormalities. Admitted for rectal bleeding, hyponatremia and polyuria. Path ~Norris 7 (3+4) Grade group 2. 56% core involvement. Cribriform not identified. 8/17 cores. Results discussed with pt and his . The pathology report, which shows the presence of prostate cancer, was disclosed to the patient in detail today. I discussed the options for treatment of prostate cancer with the patient that include: active surveillance, radiation therapy (both external beam and seed implant), cryotherapy, HIFU and radical prostatectomy (both traditional and robotic). We discussed each treatment and it's appropriateness to his condition. The short-term and long-term outcome, risk, and complications were discussed. Active surveillance involves monitoring the disease with the intention of curative intervention in the future if more concerning findings are seen. This involves PSAs and rectal exams every 6-12 months and surveillance prostate biopsies at regular intervals. He understands the uncertainties with this approach including the risk of understaging, undergrading and therefore under-treatment. However, this option is associated with preserved quality of life due to its avoidance of most treatment related side effects. I discussed radical prostatectomy including robot-assisted laparoscopic and open approaches. I discussed the procedure in detail with the patient, including how the daVinci system operates, setup and positioning, docking, extirpation of the prostate, both seminal vesicles, and regional lymph nodes. We discussed in details the levels of nerve sparing, continence preservation, and the short-term and long-term outcomes for recovery of stress urinary incontinence, and sexual impotency. Other risks of the procedure were discussed, including but not limited to, bleeding requiring transfusion, infection, bowel/rectal injury, DVT/PE, PA, CVA, hernia, lymphocele requiring drainage, positional injury, anastomotic leak and stricture, ileus, positive surgical margin, potential need for secondary therapy in high risk pathology and potential for . We discussed different forms of radiation for prostate cancer including external beam radiation therapy (e.g. conformal radiation, intensity modulated radiation, Cyberknife and Proton therapies) along with brachytherapy (permanent seeds and temporary high-dose brachy). He understood the risks of radiation therapy include but are not limited to bleeding including delayed bleeding (radiation cystitis or radiation proct (more content not included)... Normal [facility] Comment on above: Result Comment: Elec tronically Signed By: RUDI PINON MD\.br\Date and Time Signed: 09/10/24 11:37 EDT\.br\Electronically Co-Signed By: Nicol Rodarte\.br\Date and Time Co-Signed: 09/10/24 10:58 EDT Ambulatory Visit Summaryon 0 09-07-2024 Ambulatory Visit Summary Ambulatory Visi t Summary SIMONE THOMPSON VÍCTOR Kit :1950 Visit Date:09/07/2024 Ambulatory Visit Instructions Your Care Team Attending Physician - Cherry VINES, Orly Granda Primary Care Physician - LUIS ALBERTO CARRASCO MD This Is Your Medications List acetaminophen-oxycod one (acetaminophen-oxyco done 325 mg-5 mg Tab) albuterol (Albuterol (Eqv-Ventolin HFA) 90 mcg/inh inhalation aerosol) aspirin (aspirin 81 mg oral capsule) atorvastatin (atorvastatin 40 mg Tab) clopidogrel (clopidogrel 75 mg Tab) docusate (docusate sodium 100 mg Cap) furosemide (furosemide 40 mg Tab) hydrochlorothiazide- lisinopril (hydrochlorothiazide -lisinopril 12.5 mg-10 mg Tab) isosorbide mononitrate (isosorbide mononitrate 120 mg ER Tab) latanoprost ophthalmic (latanoprost Opth 0.005% Ritu) metoprolol (metoprolol succinate 25 mg ER Tab) nitroglycerin omeprazole (omeprazole 20 mg Cap-DR) potassium chloride (Potassium Chloride (Vak-Kmqz-Dtk 10) 10 mEq oral tablet, extended release) tamsulosin (tamsulosin 0.4 mg Cap) Procedures Performed Transrectal biopsy of prostate using ultrasound guidance (09/03/2024), Discission of secondary membranous cataract (opacified posterior lens capsule and/or anterior hyaloid); laser surgery (eg, YAG laser) (1 or more stages) (10/09/2021), Appendectomy, Arthroscopic procedure of knee joint, Cardiac catheterization, Carpal tunnel release, Coronary artery bypass graft, History of tonsillectomy, Percutaneous transluminal coronary angioplasty, Procedure on neck. What to do next Scheduled Follow-Up Appointments Saturday. 2024 9:45 AM EDT With: RUDI PINON MD Where: [facility] [address], [address] [place] [id number]- Medications What How Much When Why Instructions Unchanged acetaminophen-oxycod one (acetaminophen-oxyco done 325 mg-5 mg Tab) 1 Tablets By Mouth Every 8 hours as needed for for pain Duration: 3 Days may take additional tylenol/ acetaminophen, but do not exceed 3000mg total in 24 hours Unchanged albuterol (Albuterol (Eqv-Ventolin HFA) 90 mcg/ inh inhalation aerosol) 2 Inhalation Inhalation Every 6 hours as needed for Shortness of breath or wheezing Unchanged aspirin (aspirin 81 mg oral capsule) 1 Capsules By Mouth Every day Unchanged atorvastatin (atorvastatin 40 mg Tab) 1 Tablets By Mouth Every day Unchanged clopidogrel (clopidogrel 75 mg Tab) 1 Tablets By Mouth Every day Unchanged docusate (docusate sodium 100 mg Cap) 1 Capsules By Mouth Every day as needed for for constipation Unchanged furosemide (furosemide 40 mg Tab) 1 Tablets By Mouth Every day Unchanged hydrochlorothiazide- lisinopril (hydrochlorothiazide -lisinopril 12.5 mg-10 mg Tab) 1 Tablets By Mouth Every day Unchanged isosorbide mononitrate (isosorbide mononitrate 120 mg ER Tab) 1 Tablets By Mouth Once a day (in the morning) Unchanged latanoprost ophthalmic (latanoprost Opth 0.005% Ritu) 1 Drops Unchanged metoprolol (metoprolol succinate 25 mg ER Tab) 1 Tablets By Mouth Every day Unchanged nitroglycerin 0.4 Milligram Sublingual Every 5 minutes Unchanged omeprazole (omeprazole 20 mg Cap-DR) 1 Capsules By Mouth Every day Unchanged potassium chloride (Potassium Chloride (Jfr-Xxvz-Ylc 10) 10 mEq oral tablet, extended release) 1 Tablets By Mouth Every day Unchanged tamsulosin (tamsulosin 0.4 mg Cap) 1 Capsules By Mouth Every day BPH with urinary obstruction Allergies atorvastatin (Hives, Unknown) fentanyl topical (Itching, Unknown, Eruption, Rash) morphine (Unknown, Itching, Itching) ranolazine (Unknown, Hives) venlafaxine (Unknown, Comment:tired, no appetite) vilanterol (Dizziness) Problems Ongoing - Any problem that you are currently receiving treatment for. Antiplatelet or antithrombotic long-term use Arteriosclerotic vascular disease Asthma BPH with urinary obstruction CAD (coronary artery disease) Cardiac enzyme or marker above reference range Carpal tunnel syndrome Chronic obstructive pulmonary disease Elevated PSA Esophageal reflux Essential hypertension Ex-smoker Hyperglycemia due to type 2 diabetes mellitus Hyperlipidemia VASQUEZ (obstructive sleep apnea) Osteoarthritis of left knee joint Paresthesia Subsequent non-ST segment elevation myocardial infarction. Suspected bilateral glaucoma Historical - Any problem that you are no longer receiving treatment for. Asthma Hyperlipidemia Hypertension Myocardial infarction Tic disorder Patient Survey You may receive a survey via text or e-mail asking about your office visit. Please share your experience with us by completing your survey. We appreciate your feedback and thank you for choosing us for your care. Normal [facility] Surgical Pathology Reporton 09-07-2024 Surgical Pathology Report [facility] [address] [place] [address]- Surgical Pathology Report Collected Date/Time: 09/03/2024 08:07 EDT Pathologist: Yasir FRANCIS PhD, Serge Valdivia Received Date/Time: 09/03/2024 09:34 EDT DARRON FRANCIS, DARRON FRANCIS, RUDI GRIJALVA 07 Surgical Pathology Report - 09/07/2024 12:47 EDT - Auth (Verified) Final Diagnosis A: ??PROSTATE, RIGHT MEDIAL BASE, NEEDLE BIOPSY: - BENIGN PROSTATIC TISSUE. B: ??PROSTATE, RIGHT MEDIAL MID, NEEDLE BIOPSY: - BENIGN PROSTATIC TISSUE. C: ??PROSTATE, RIGHT MEDIAL APEX, NEEDLE BIOPSY: - BENIGN PROSTATIC TISSUE. D: ?PROSTATE, RIGHT LATERAL BASE, NEEDLE BIOPSY: - BENIGN PROSTATIC TISSUE. E: ?PROSTATE, RIGHT LATERAL MID, NEEDLE BIOPSY: - BENIGN PROSTATIC STROMAL TISSUE. F: ?PROSTATE, RIGHT LATERAL APEX, NEEDLE BIOPSY: - BENIGN PROSTATIC TISSUE. 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 H: ?PROSTATE, LEFT MEDIAL MID, NEEDLE BIOPSY: - BENIGN PROSTATIC TISSUE. I: ?PROSTATE, LEFT MEDIAL APEX, NEEDLE BIOPSY: - ATYPICAL SMALL ACINAR GLANDS. J: ?PROSTATE, LEFT LATERAL BASE, NEEDLE BIOPSY: - ACINAR ADENOCARCINOMA OF PROSTATE, NORRIS SCORE 3+4= 7, INVOLVING 1/1 CORE (APPROXIMATELY 23% OF TISSUE INVOLVEMENT). K: ?PROSTATE, LEFT LATERAL MID, NEEDLE BIOPSY: - ACINAR ADENOCARCINOMA OF PROSTATE, NORRIS SCORE 3+3= 6, INVOLVING 1/1 CORE (APPROXIMATELY 27% OF TISSUE INVOLVEMENT). L: ?PROSTATE, LEFT LATERAL APEX, NEEDLE BIOPSY: - ACINAR ADENOCARCINOMA OF PROSTATE, NORRIS SCORE 3+4= 7, INVOLVING 1/1 CORE (APPROXIMATELY 56% OF TISSUE INVOLVEMENT). M: PROSTATE, REGION OF INTEREST, NEEDLE BIOPSY: - ACINAR ADENOCARCINOMA OF PROSTATE, NORRIS SCORE 3+4= 7, INVOLVING 4/5 CORES (APPROXIMATELY 43% OF TISSUE INVOLVEMENT). (Electronic Signature) Serge Cooley MD PhD 09/07/2024 12:47 Diagnosis Comment Highest grade group: Mallard score 3+4=7, grade group 2. Highest percentage of core involvement: 56% Cribriform pattern 4: Not identified Surgical Pathology Report Collected Date/Time: 09/03/2024 08:07 EDT Pathologist: Yasir FRANCIS PhD, Serge Valdivia Received Date/Time: 09/03/2024 09:34 EDT DARRON FRANCIS, DARRON FRANCIS, RUDI GRIJALVA Diagnosis Comment Highest percentage of Norris pattern 4: Approximately 5% Clinical Information Elevated PSA Pre-Op Diagnosis: Elevated PSA Procedure: Transrectal ultrasound prostate biopsy Post-Op Diagnosis: _ Specimen(s) Received A.Right medial base prostate B.Right medial mid prostate C.Right medial apex prostate D.Right lateral base prostate E.Right lateral mid prostate F.Right lateral apex prostate G.Left medial base prostate H.Left medial mid prostate I.Left medial apex prostate J.Left lateral base prostate K.Left lateral mid prostate L.Left lateral apex prostate M.Region of interest Gross Description A: The specimen is received in formalin, labeled with patient name, number and right medial base prostate and consists of one cylindrical segment of montelongo soft tissue which measures 1.5 cm in length. The specimen is entirely submitted. B: ??The specimen is received in formalin, labeled with patient name, number, and right medial mid prostate and consists of one cylindrical segment of montelongo soft tissue which measures 1.0 cm in length. The specimen is entirely submitted. C: ?The specimen is received in formalin, labeled with patient name, number, and right medial apex prostate and consists of one cylindrical segment of montelongo soft tissue which measures 1.0 cm in length. The specimen is entirely submitted. D: ?The specimen is received in formalin, labeled with patient name, number, and right lateral base prostate and consists of one cylindrical segment of montelongo soft tissue which measures 0.8 cm in length. The specimen is entirely submitted. E: ?The specimen is received in formalin, labeled with patient name, number, and right lateral mid prostate and consists of one cylindrical segment of montelongo soft tissue which measures 0.9 cm in length. The specimen is entirely submitted. F: ?? The specimen is received in formalin, labeled with patient name, number, and right lateral apex prostate and consists of one cylindrical segment of montelongo soft tissue which measures 0.5 cm in length. The specimen is entirely submitted. G: ??The specimen is received in formalin, labeled with patient name, number, and left medial base prostate and consists of one cylindrical segment of montelongo soft tissue which measures 1.5 cm in length. The specimen is entirely submitted. ?? . H: ?The specimen is received in formalin, labeled with patient name, number, and left medial mid prostate and consists of one cylindrical segment of montelongo soft tissue which measures 1.2 cm in length. The (more content not included)... Normal [facility] Comment on above: Performed By: #### [id number] #### [facility] [address] [place] [address] 27771 C Urineon 09-06-2024 Bacteria identified Cx Nom (U) Microbiology PROCEDURE: Urine Culture [R1] SOURCE: U Cath BODY SITE: COLLECTED DATE/TIME: 09/04/2024 00:27 EDT RECEIVED DATE/TIME: 09/04/2024 01:01 EDT START DATE/TIME: 09/04/2024 01:01 EDT FREE TEXT SOURCE: Armin Robbins DO, DO, Armin Herrmann FINAL REPORTS Final Report [] Verified Date/Time: 09/06/2024 06:45 EDT No growth at 2 days. Performing Locations R1: This test was performed at: [facility], [address] [place] [address], [id number] , , [facility] Comment on above: Performed By: #### 2 [id number] #### [facility] [address] [place] [address] 48012 BMPon 09-05-2024 Anion gap [Moles/Vol] 7 mmol/L Normal 6-16 [facility] Comment on above: Performed By: #### 2 [id number] #### [facility] [address] [place] [address] Calcium [Mass/Vol] 8.5 mg/dL Low 8.9-11.1 [facility] Comment on above: Performed By: #### 2 [id number] #### [facility] [address] [place] [address] Chloride [Moles/Vol] 104 mmol/L Normal 101-111 [facility] Comment on above: Performed By: #### 2 [id number] #### [facility] [address] [place] [address] CO2 [Moles/Vol] 30 mmol/L Normal 21-31 [facility] Comment on above: Performed By: #### 2 [id number] #### [facility] [address] [place] [address] Creatinine [Mass/Vol] 1.3 mg/dL Normal 0.5-1.3 [facility] Comment on above: Performed By: #### 2 [id number] #### [facility] [address] [place] [address] Glucose [Mass/Vol] 135 mg/dL Normal 55-199 [facility] Comment on above: Performed By: #### 2 [id number] #### [facility] [address] [place] [address] Potassium [Moles/Vol] 4.3 mmol/L Normal 3.5-5.3 [facility] Comment on above: Performed By: #### 2 [id number] #### [facility] [address] [place] [address] Sodium [Moles/Vol] 137 mmol/L Normal 135-145 [facility] Comment on above: Performed By: #### 2 [id number] #### [facility] [address] [place] [address] Urea nitrogen [Mass/Vol] 21 mg/dL Normal 5-21 [facility] Comment on above: Performed By: #### 2 [id number] #### [facility] [address] [place] [address] Urea nitrogen/Creatinine [Mass ratio] 16 No Units Normal 10-20 [facility] Comment on above: Performed By: #### 2 [id number] #### [facility] [address] [place] [address] CBC w/ Auto Diffon 5 Basophils/100 WBC (Bld) 0.6 % Normal 0.0-2.0 [facility] Comment on above: Performed By: #### 2 [id number] #### [facility] [address] [place] [address] Basophils/Leukocytes Auto (Bld) [Pure # fraction] 0.1 E9/L Normal 0.0-0.2 [facility] Comment on above: Performed By: #### 2 [id number] #### [facility] [address] [place] [address] Eosinophils (Bld) [#/Vol] 0.2 E9/L Normal 0.0-0.5 [facility] Comment on above: Performed By: #### 2 [id number] #### [facility] [address] [place] [address] Eosinophils/100 WBC (Bld) 1.8 % Normal 0.0-8.0 [facility] Comment on above: Performed By: #### 2 [id number] #### [facility] [address] [place] [address] Erythrocyte distribution width (RBC) [Ratio] 13.4 % Normal 10.9-14.2 [facility] Comment on above: Performed By: #### 2 [id number] #### [facility] [address] [place] [address] Hematocrit (Bld) [Volume fraction] 31.0 % Low 37.7-49.0 [facility] Comment on above: Performed By: #### 2 [id number] #### [facility] [address] [place] [address] Hemoglobin (Bld) [Mass/Vol] 10.1 g/dL Low 13.5-17.5 [facility] Comment on above: Performed By: #### 2 [id number] #### [facility] [address] [place] [address] Lymphocytes (Bld) [#/Vol] 2.5 E9/L Normal 1.0-4.0 [facility] Comment on above: Performed By: #### 2 [id number] #### [facility] [address] [place] [address] Lymphocytes/100 WBC (Bld) 28.9 % Normal 14.0-50.0 [facility] Comment on above: Performed By: #### 2 [id number] #### [facility] [address] [place] [address] MCH (RBC) [Entitic mass] 30.7 pg Normal 27.0-34.0 [facility] Comment on above: Performed By: #### 2 [id number] #### [facility] [address] [place] [address] MCHC (RBC) [Mass/Vol] 32.7 g/dL Normal 31.4-36.0 [facility] Comment on above: Performed By: #### 2 [id number] #### [facility] [address] [place] [address] MCV (RBC) [Entitic vol] 93.7 fL Normal 80.0-100.0 [facility] Comment on above: Performed By: #### 2 [id number] #### [facility] [address] [place] [address] Monocytes (Bld) [#/Vol] 0.8 E9/L Normal 0.2-1.0 [facility] Comment on above: Performed By: #### 2 [id number] #### [facility] [address] [place] [address] Neutrophils (Bld) [#/Vol] 5.2 E9/L Normal 2.0-7.5 [facility] Comment on above: Performed By: #### 2 [id number] #### [facility] [address] [place] [address] Neutrophils/100 WBC (Bld) 59.5 % Normal 36.0-75.0 [facility] Comment on above: Performed By: #### 2 [id number] #### [facility] [address] [place] [address] Platelet 187.0 E9/L Normal 150.0-500.0 [facility] Comment on above: Performed By: #### 2 [id number] #### [facility] [address] [place] [address] Platelet mean volume (Bld) [Entitic vol] 9.2 fL Normal 6.4-10.8 [facility] Comment on above: Performed By: #### 2 [id number] #### [facility] [address] [place] [address] RBC (Bld) [#/Vol] 3.3 E12/L Low 4.3-5.9 [facility] Comment on above: Performed By: #### 2 [id number] #### [facility] [address] [place] [address] WBC corrected for nucl RBC Auto (Bld) [#/Vol] 8.7 E9/L Normal 4.0-11.0 [facility] Comment on above: Performed By: #### 2 [id number] #### [facility] [address] [place] [address] CHEMISTRYOrdered By: SYSTEM SYSTEM on 09-05-2024 Anion gap [Moles/Vol] 7 mmol/L Normal 6 - 16 mEq/L R emisol Chem Calcium [Mass/Vol] 8.5 mg/dL Low 8.9 - 11. 1 mg/dL [facility] Chloride [Moles/Vol] 104 mmol/L Normal 101 - 1 11 mmol/L [facility] CO2 [Moles/Vol] 30 mmol/L Normal 21 - 31 mmol/L [facility] Creatinine [Mass/Vol] 1.3 mg/dL Normal 0.5 - 1.3 mg/dL [facility] eGFR 58 mL/min/1.73 m2 Low >=59mL/min /1 .73 m2 [facility] Glucose [Mass/Vol] 135 mg/dL Normal 55 - 199 mg/dL [facility] Potassium [Moles/Vol] 4.3 mmol/L Normal 3.5 - 5.3 mmol/L [facility] Sodium [Moles/Vol] 137 mmol/L Normal 135 - 145 mmol/L [facility] Urea nitrogen [Mass/Vol] 21 mg/dL Normal 5 - 21 mg/d L [facility] Urea nitrogen/Creatinine [Mass ratio] 16 mg/mg Normal 10 - 20 [facility] Discharge Note-Nursingon Discharge Note-Nursing Discharge Note-Nursing VÍCTOR NICHOLS SR :1950 Visit Date:09/03/2024 Inpatient Discharge Instructions Your Care Team Admitting Physician - Aki FRANCIS, Ainsley Consulting Physician - Gaurav FRANCIS, Ras Villaseñor Reason for Your Visit Pt arrives to ED from home with possible rectal bleed and dizziness. Pt was here for a biopsy of prostate, says he woke up out of surgery and was having rectal bleeding, attempts were made in PACU to stop bleeding. Allan present, states whenever I pee, I Your Diagnosis Rectal bleeding Hyponatremia Polyuria UTI (urinary tract infection) BPH with urinary obstruction Acute blood loss anemia Acute on chronic heart failure with preserved ejection fraction (HFpEF) CAD (coronary artery disease) Diabetes Hyperlipidemia Essential hypertension Chronic obstructive pulmonary disease VASQUEZ (obstructive sleep apnea) S/P CABG (coronary artery bypass graft) Obesity Dizziness Post surgical problem Rectal bleed Tests Performed CT Abdomen/Pelvis w/ Contrast This Is Your Medications List acetaminophen-oxycod one (acetaminophen-oxyco done 325 mg-5 mg Tab) albuterol (Albuterol (Eqv-Ventolin HFA) 90 mcg/inh inhalation aerosol) aspirin (aspirin 81 mg oral capsule) atorvastatin (atorvastatin 40 mg Tab) cephalexin (Keflex 500 mg Cap) clopidogrel (clopidogrel 75 mg Tab) docusate (docusate sodium 100 mg Cap) furosemide (furosemide 40 mg Tab) hydrochlorothiazide- lisinopril (hydrochlorothiazide -lisinopril 12.5 mg-10 mg Tab) isosorbide mononitrate (isosorbide mononitrate 120 mg ER Tab) latanoprost ophthalmic (latanoprost Opth 0.005% Ritu) metoprolol (metoprolol succinate 25 mg ER Tab) nitroglycerin omeprazole (omeprazole 20 mg Cap-DR) potassium chloride (Potassium Chloride (Eoi-Nnyp-Tox 10) 10 mEq oral tablet, extended release) tamsulosin (tamsulosin 0.4 mg Cap) [Image Removed: STOP]Stop taking these medications torsemide (torsemide 20 mg Tab) Procedure History Transrectal biopsy of prostate using ultrasound guidance (09/03/2024), Discission of secondary membranous cataract (opacified posterior lens capsule and/or anterior hyaloid); laser surgery (eg, YAG laser) (1 or more stages) (10/09/2021), Appendectomy, Arthroscopic procedure of knee joint, Cardiac catheterization, Carpal tunnel release, Coronary artery bypass graft, History of tonsillectomy, Percutaneous transluminal coronary angioplasty, Procedure on neck. What to do next Instructions From Your Doctor Event Name Event Result Discharge Activity Ambulate as tolerated Discharge Diet(s) Regular Pending Diagnostic Test Results Urine culture Discharge Instructions Take antibiotic as prescribed by your urologist x 3 days. Return to ER if symptoms return or worsen New Follow Up Appointments after Discharge Follow Up with RUDI PINON When: Within 2 to 3 days Comments: Call for followup appointment. Follow up ASPA/this week with Urology for voiding trial Follow Up with LUIS ALBERTO CARRASCO When: Within 7 to 10 days Comments: Call for followup appointment Where: [address] [place], [place] [id number]- [facility] (1) Medications What How Much When Why Instructions Next Dose New acetaminophen-oxycod one (acetaminophen-oxyco done 325 mg-5 mg Tab) 1 Tablets By Mouth Every 8 hours as needed for for pain Duration: 3 Days may take additional tylenol/ acetaminophen, but do not exceed 3000mg total in 24 hours Pickup at [facility]/pharmacy #[id number] As Directed Unchanged albuterol (Albuterol (Eqv-Ventolin HFA) 90 mcg/ inh inhalation aerosol) 2 Inhalation Inhalation Every 6 hours as needed for Shortness of breath or wheezing As Directed Unchanged aspirin (aspirin 81 mg oral capsule) 1 Capsules By Mouth Every day As Directed Unchanged atorvastatin (atorvastatin 40 mg Tab) 1 Tablets By Mouth Every day As Directed Unchanged cephalexin (Keflex 500 mg Cap) 1 Capsules By Mouth Every 12 hours Duration: 3 Days continue to take as prescribed on discharge As Directed Unchanged clopidogrel (clopidogrel 75 mg Tab) 1 Tablets By Mouth Every day As Directed Unchanged docusate (docusate sodium 100 mg Cap) 1 Capsules By Mouth Every day as needed for for constipation As Directed Unchanged furosemide (furosemide 40 mg Tab) 1 Tablets By Mouth Every day As Directed Unchanged hydrochlorothiazide- lisinopril (hydrochlorothiazide -lisinopril 12.5 mg-10 mg Tab) 1 Tablets By Mouth Every day As Directed Unchanged isosorbide mononitrate (isosorbide mononitrate 120 mg ER Tab) 1 Tablets By Mouth Once a day (in the morning) Tomorrow 9am Unchanged latanoprost ophthalmic (latanoprost Opth 0.005% Ritu) 1 Drops 9pm Unchanged metoprolol (metoprolol succinate 25 mg ER Tab) 1 Tablets By Mouth Every day Tomorrow 9am Unchanged nitroglycerin 0.4 Milligram Sublingual Every 5 minutes As Directed Unchanged omeprazole (omeprazole 20 mg Cap-DR) 1 Capsules By Mouth Every day As Directed Unchanged (more content not included)... Normal [facility] HEMATOLOGYOrdered By: SYSTEM SYSTEM on 09-05-2024 Basophils/100 WBC (Bld) 0.6 % Normal 0.0 - 2.0 % Remisol Heme Basophils/Leukocytes Auto (Bld) [Pure # fraction] 0.1 E9/L Normal 0.0 - 0.2 E9/L Remisol Heme Eosinophils (Bld) [#/Vol] 0.2 E9/L Normal 0.0 - 0.5 E9/L Remisol Heme Eosinophils/100 WBC (Bld) 1.8 % Normal 0.0 - 8.0 % Remisol Heme Erythrocyte distribution width (RBC) [Ratio] 13.4 % Normal 10.9 - 14.2 % Remisol Heme Hematocrit (Bld) [Volume fraction] 31.0 % Low 37.7 - 49.0 % Remisol Heme Hemoglobin (Bld) [Mass/Vol] 10.1 g/dL Low 13.5 - 17.5 gm/dL Remisol Heme Lymphocytes (Bld) [#/Vol] 2.5 E9/L Normal 1.0 - 4.0 E9/L Remisol Heme Lymphocytes/100 WBC (Bld) 28.9 % Normal 14.0 - 50.0 % Remisol Heme MCH (RBC) [Entitic mass] 30.7 pg Normal 27. 0 - 34.0 pg Remisol Heme MCHC (RBC) [Mass/Vol] 32.7 g/dL Normal 31.4 - 36.0 gm/dL Remisol Heme MCV (RBC) [Entitic vol] 93.7 fL Normal 80.0 - 100.0 fL Remisol Heme Monocytes (Bld) [#/Vol] 0.8 E9/L Normal 0.2 - 1.0 E9/L Remisol Heme Monocytes/100 WBC (Bld) 9.2 % Normal 4.0 - 14.0 % Remisol Heme Neutrophils (Bld) [#/Vol] 5.2 E9/L Normal 2.0 - 7.5 E9/L Remisol Heme Neutrophils/100 WBC (Bld) 59.5 % Normal 36.0 - 75.0 % Remisol Heme Platelet 187.0 E9/L Normal 150.0 - 500.0 E9/L Remisol Heme Platelet mean volume (Bld) [Entitic vol] 9.2 fL Normal 6.4 - 10.8 fL Remisol Heme RBC (Bld) [#/Vol] 3.3 E12/L Low 4.3 - 5.9 E12/L Remisol Heme WBC corrected for nucl RBC Auto (Bld) [#/Vol] 8.7 E9/L Normal 4.0 - 11.0 E9/L Remisol Heme eGFRon 09-05-2024 eGFR 58 mL/min/1.73 m2 Low >=59 [facility] Comment on above: Performed By: #### 1 [id number] #### [facility] [address] [place] [address] BB Draw & Holdon 09-04-2024 BB D&H Sample drawn for Blood Ba Normal [facility] Comment on above: Performed By: #### 1 [id number] #### [facility] [address] [place] [address] [facility] Anion gap [Moles/Vol] 9 mmol/L Normal 6-16 [facility] Comment on above: Performed By: #### 2 [id number] #### [facility] [address] [place] [address] Calcium [Mass/Vol] 8.9 mg/dL Normal 8.9-11.1 [facility] Comment on above: Performed By: #### 2 [id number] #### [facility] [address] [place] [address] Chloride [Moles/Vol] 103 mmol/L Normal 101-111 [facility] Comment on above: Performed By: #### 2 [id number] #### [facility] [address] [place] [address] CO2 [Moles/Vol] 28 mmol/L Normal 21-31 [facility] Comment on above: Performed By: #### 2 [id number] #### [facility] [address] [place] [address] Creatinine [Mass/Vol] 1.2 mg/dL Normal 0.5-1.3 [facility] Comment on above: Performed By: #### 2 [id number] #### [facility] [address] [place] [address] Glucose [Mass/Vol] 98 mg/dL Normal 55-199 [facility] Comment on above: Performed By: #### 2 [id number] #### [facility] [address] [place] [address] Potassium [Moles/Vol] 3.8 mmol/L Normal 3.5-5.3 [facility] Comment on above: Performed By: #### 2 [id number] #### [facility] [address] [place] [address] Sodium [Moles/Vol] 136 mmol/L Normal 135-145 [facility] Comment on above: Performed By: #### 2 [id number] #### [facility] [address] [place] [address] Urea nitrogen [Mass/Vol] 19 mg/dL Normal 5-21 [facility] Comment on above: Performed By: #### 2 [id number] #### [facility] [address] [place] [address] Urea nitrogen/Creatinine [Mass ratio] 16 No Units Normal 10-20 [facility] Comment on above: Performed By: #### 2 [id number] #### [facility] [address] [place] [address] Anion gap [Moles/Vol] 8 mmol/L Normal 6-16 [facility] Comment on above: Performed By: #### 2 [id number] #### [facility] [address] [place] [address] Calcium [Mass/Vol] 8.5 mg/dL Low 8.9-11.1 [facility] Comment on above: Performed By: #### 2 [id number] #### [facility] [address] [place] [address] Chloride [Moles/Vol] 104 mmol/L Normal 101-111 [facility] Comment on above: Performed By: #### 2 [id number] #### [facility] [address] [place] [address] CO2 [Moles/Vol] 28 mmol/L Normal 21-31 [facility] Comment on above: Performed By: #### 2 [id number] #### [facility] [address] [place] [address] Creatinine [Mass/Vol] 1.0 mg/dL Normal 0.5-1.3 [facility] Comment on above: Performed By: #### 2 [id number] #### [facility] [address] [place] [address] Glucose [Mass/Vol] 137 mg/dL Normal 55-199 [facility] Comment on above: Performed By: #### 2 [id number] #### [facility] [address] [place] [address] Potassium [Moles/Vol] 4.1 mmol/L Normal 3.5-5.3 [facility] Comment on above: Performed By: #### 2 [id number] #### [facility] [address] [place] [address] Sodium [Moles/Vol] 136 mmol/L Normal 135-145 [facility] Comment on above: Performed By: #### 2 [id number] #### [facility] [address] [place] [address] Urea nitrogen [Mass/Vol] 16 mg/dL Normal 5-21 [facility] Comment on above: Performed By: #### 2 [id number] #### [facility] [address] [place] [address] Urea nitrogen/Creatinine [Mass ratio] 16 No Units Normal 10-20 [facility] Comment on above: Performed By: #### 2 [id number] #### [facility] [address] [place] [address] CHEMISTRYOrdered By: SYSTEM SYSTEM on 09-04-2024 Anion gap [Moles/Vol] 9 mmol/L Normal 6 - 16 mEq/L R emisol Chem Calcium [Mass/Vol] 8.9 mg/dL Normal 8.9 - 11. 1 mg/dL Remisol Chem Chloride [Moles/Vol] 103 mmol/L Normal 101 - 1 11 mmol/L Remisol Chem CO2 [Moles/Vol] 28 mmol/L Normal 21 - 31 mmol/L Rem[facility] Chem Creatinine [Mass/Vol] 1.2 mg/dL Normal 0.5 - 1.3 mg/dL Remisol Chem eGFR 64 mL/min/1.73 m2 Normal >=59mL/min /1 .73 m2 Remisol Chem Glucose [Mass/Vol] 98 mg/dL Normal 55 - 199 mg/dL Rem[facility] Chem Potassium [Moles/Vol] 3.8 mmol/L Normal 3.5 - 5.3 mmol/L Remisol Chem Sodium [Moles/Vol] 136 mmol/L Normal 135 - 145 mmol/L [facility] Chem Urea nitrogen [Mass/Vol] 19 mg/dL Normal 5 - 21 mg/d L [facility] Chem Urea nitrogen/Creatinine [Mass ratio] 16 mg/mg Normal 10 - 20 [facility] Chem Anion gap [Moles/Vol] 8 mmol/L Normal 6 - 16 mEq/L R emisol Chem Calcium [Mass/Vol] 8.5 mg/dL Low 8.9 - 11. 1 mg/dL [facility] Chem Chloride [Moles/Vol] 104 mmol/L Normal 101 - 1 11 mmol/L Remisol Chem CO2 [Moles/Vol] 28 mmol/L Normal 21 - 31 mmol/L Remisol Chem Creatinine [Mass/Vol] 1.0 mg/dL Normal 0.5 - 1.3 mg/dL Remisol Chem eGFR 80 mL/min/1.73 m2 Normal >=59mL/min /1 .73 m2 Remisol Chem Glucose [Mass/Vol] 137 mg/dL Normal 55 - 199 mg/dL Remisol Chem Potassium [Moles/Vol] 4.1 mmol/L Normal 3.5 - 5.3 mmol/L Remisol Chem Sodium [Moles/Vol] 136 mmol/L Normal 135 - 145 mmol/L Remisol Chem Urea nitrogen [Mass/Vol] 16 mg/dL Normal 5 - 21 mg/d L Remisol Chem Urea nitrogen/Creatinine [Mass ratio] 16 mg/mg Normal 10 - 20 [facility] Chem Chloride [Moles/Vol] 37 mmol/L Invalid Interpretation Code Remisol Chem Sodium [Moles/Vol] 35 mmol/L Invalid Interpretation Code Remisol Chem U Creatinine 27.9 mg/dL Invalid Interpretation Code Remisol Chem CT Abdomen/Pelvis w/ Contras ton 09-04-2024 CT Abdomen/Pelvis w/ Contrast Exam Date/Time: 09/03/2024 21:15 EDT Reason for Exam: rectal bleed, prostate exam;Other (please specify) Report IMPRESSION: NO PERIPROSTATIC OR PERICOLONIC INFLAMMATORY CHANGE OR FLUID COLLECTIONS. KIDNEYS WITHOUT ANOMALY. ALLAN CATHETER WITHIN PARTIALLY DECOMPRESSED URINARY BLADDER. CT OF THE ABDOMEN AND PELVIS WITH INTRAVENOUS CONTRAST MEDIUM HISTORY: RECTAL BLEED, PROSTATE EXAM. POSSIBLE RECTAL BLEED AND DIZZINESS. PT WAS HERE FOR A BIOPSY OF PROSTATE, SAYS HE WOKE UP OUT OF SURGERY AND WAS HAVING RECTAL BLEEDING, ATTEMPTS WERE MADE IN PACU TO STOP BLEEDING. ALLAN PRESENT. CT OF THE ABDOMEN AND PELVIS WITH INTRAVENOUS CONTRAST MEDIUM. TECHNICAL FACTORS: CT imaging of the abdomen and pelvis were obtained and formatted as 5 mm contiguous axial images from the domes of the diaphragm to the symphysis pubis. Sagittal and coronal reconstructions were also obtained. Comparison: None Findings: Lower chest: Cardiac size normal. No pericardial effusion. No coronary artery calcification. Median sternotomy. Lung bases clear. Liver: Normal in size, shape, and attenuation. Bile Ducts: Normal in caliber. Gallbladder: No stones or wall thickening. Pancreas: Normal without masses, cysts, ductal dilatation or calcification. Spleen: Normal in size without masses or calcifications. No splenules. Kidneys: Normal in size and enhancement. No hydronephrosis, masses, or stones. Adrenals: Normal. Small bowel: Normal in caliber. Appendix: Not visualized. Report Colon: Normal in caliber. Peritoneum: No ascites, free air, or fluid collections. Vessels: Aorta normal in course and caliber. Aortoiliac atherosclerotic change, with calcification demonstrated at ostia of celiac artery, single mesenteric artery, bilateral single main renal artery, and inferior mesenteric artery. Portal vein, splenic vein, superior mesenteric vein are patent. Lymph nodes: Retroperitoneal: No enlarged retroperitoneal lymph nodes. Mesenteric: No enlarged mesenteric lymph nodes. Pelvic: No enlarged pelvic lymph nodes. Ureters: Normal in course and caliber. No calcifications. Bladder: Decompressed. Allan catheter identified. Prostate: Normal in size with transverse diameter 4.6 cm. Punctate calcifications identified within prostate. No periprosthetic fluid collections or fat stranding demonstrated. Abdominal Wall: No hernia identified. No diastasis of rectus musculature. No edema or masses. Bones: No bone lesions. Near fusion L5-S1. Diffuse disc space narrowing T7-T8 through T10-T11 with posterior disc space narrowing T11-T12 and T12-L1. Posterior disc space narrowing also visualized at L1-L2. No post operative changes. All CT scans at this facility use dose modulation, iterative reconstruction, and/or weight based dosing when appropriate to reduce radiation dose to as low as reasonably achievable. Technical Comments: GFR (mL/min/1/73m2) 80 Contrast: Isovue 300 Contrast amount in ml's: 100.00 Ordering Provider: Armin Bhatia FINAL REPORT Dictated: 09/04/2024 8:43 am Rey Bravo MD Signed (Electronic Signature): 09/04/2024 8:43 am Signed by: Rey Bravo MD Transcribed by: RAUL Technologist: ANY Barry [facility] ED Clinical Summaryon 2024 ED Clinical Summary ED Clinical Summary [place] [id number] ED Clinical Summary Person Information Name: VÍCTOR NICHOLS SR [facility] Age: 73 Years : 1950 Sex: Male Language: Romansh PCP: LUIS ALBERTO CARRASCO MD Marital Status: Visit Id: Visit Reason: Post surgical problem; Dizziness; Rectal bleed; POST OP ISSUE Speciality: Acuity: 2 Enc Type: Observation Med Service: Medical Arrival: 09/03/2024 19:18:18 Discharge: LOS: 000 06:41 Checkin: 09/03/2024 19:18:18 Checkout: 09/04/2024 01:59:23 Dispo Type: Admitted as IP to this [facility] EVENTS: Event Name Event Status Request Date/Time Start Date/Time Complete Date/Time Arrive Complete 09/03/2024 19:18:18 09/03/2024 19:18:18 09/03/2024 19:18:18 Document Home Meds Request 09/03/2024 19:18:18 Triage Complete 09/03/2024 19:18:18 09/03/2024 19:32:53 09/03/2024 19:32:53 Bed Assign Complete 09/03/2024 19:24:39 09/03/2024 19:24:39 09/03/2024 19:24:39 Dr Exam Complete 09/03/2024 19:24:39 09/03/2024 19:26:28 09/03/2024 19:26:28 RN Exam Complete 09/03/2024 19:24:39 09/03/2024 19:38:43 09/03/2024 19:38:43 Registration Complete 09/03/2024 19:26:28 09/03/2024 20:38:44 09/03/2024 20:38:44 EKG Complete 09/03/2024 19:27:43 09/03/2024 19:36:17 Fall Risk Request 09/03/2024 19:38:44 CT Complete 09/03/2024 20:05:55 09/03/2024 20:52:57 09/03/2024 21:15:21 Pending Labs Complete 09/03/2024 20:06:28 09/03/2024 20:58:31 Lab Complete 09/03/2024 20:06:28 09/03/2024 20:58:31 Pending Labs Complete 09/03/2024 20:29:18 09/03/2024 20:29:18 09/03/2024 20:58:31 Lab Complete 09/03/2024 20:29:18 09/03/2024 20:29:18 09/03/2024 20:58:31 Reg Complete Request 09/03/2024 20:38:44 Reg Bed Request Complete 09/03/2024 20:38:44 09/03/2024 20:38:44 09/03/2024 20:38:44 Meds Admin Complete 09/03/2024 20:45:47 09/03/2024 20:57:49 Pending Labs Complete 09/03/2024 21:02:23 09/03/2024 21:02:23 09/03/2024 21:04:47 Pending Labs Complete 09/03/2024 21:06:14 09/03/2024 21:06:14 09/03/2024 21:26:32 Lab Complete 09/03/2024 21:06:14 09/03/2024 21:06:14 09/03/2024 21:26:32 Pending Labs Complete 09/03/2024 21:53:13 09/03/2024 21:53:13 09/03/2024 21:53:14 Pending Labs Complete 09/04/2024 00:14:45 09/04/2024 00:58:48 Pending Labs Complete 09/04/2024 00:31:56 09/04/2024 00:57:24 Lab Complete 09/04/2024 00:31:56 09/04/2024 00:57:24 Consult Request 09/04/2024 00:39:21 Hospitalist Consult Request 09/04/2024 00:39:22 Observation Request 09/04/2024 00:54:40 Patient Care Request 09/04/2024 00:54:40 Patient Care Request 09/04/2024 00:54:41 Patient Care Request 09/04/2024 00:54:41 Medicare Form Complete 09/04/2024 00:54:42 09/04/2024 01:15:40 Patient Care Request 09/04/2024 00:54:43 Patient Care Request 09/04/2024 00:54:43 Pending Labs Inlab 09/04/2024 00:58:49 09/04/2024 00:58:49 Lab Inlab 09/04/2024 00:58:49 09/04/2024 00:58:49 Meds Admin Request 09/04/2024 01:25:45 Consult Request 09/04/2024 01:25:45 Patient Care Request 09/04/2024 01:26:45 Meds Admin Request 09/04/2024 01:26:45 Pending Labs Request 09/04/2024 01:27:12 Lab Request 09/04/2024 01:27:12 ADDRESS: [address] [place] [id number] PHYS DOC NOTES: MEDICAL INFORMATION: Prescriptions Given: Medications to Continue with No Changes Other Medications albuterol (Albuterol (Eqv-Ventolin HFA) 90 mcg/inh inhalation aerosol) 2 Inhalation Inhalation every 6 hours as needed Shortness of breath or wheezing. aspirin (aspirin 81 mg oral capsule) 1 Capsules By Mouth every day. atorvastatin (atorvastatin 40 mg Tab) 1 Tablets By Mouth every day. cephalexin (Keflex 500 mg Cap) 1 Capsules By Mouth every 12 hours for 3 Days. Refills: 0. clopidogrel (clopidogrel 75 mg Tab) 1 Tablets By Mouth every day. docusate (docusate sodium 100 mg Cap) 1 Capsules By Mouth every day as needed for constipation. furosemide (furosemide 20 mg Tab) 1 Tablets By Mouth every day. hydrochlorothiazide- lisinopril (hydrochlorothiazide -lisinopril 12.5 mg-10 mg Tab) 1 Tablets By Mouth every day. isosorbide mononitrate (isosorbide mononitrate 120 mg ER Tab) 1 Tablets By Mouth once a day (in the morning). latanoprost ophthalmic (latanoprost Opth 0.005% Ritu) 1 Drops. metoprolol (metoprolol succinate 25 mg ER Tab) 1 Tablets By Mouth every day. nitroglycerin 0.4 Milligram Sublingual every 5 minutes. omeprazole (omeprazole 20 mg Cap-DR) 1 Capsules By Mouth every day. potassium chloride (Potassium Chloride (Zpj-Ixkz-Jdk 10) 10 mEq oral tablet, extended release) 1 Tablets By Mouth every day. tamsulosin (tamsulosin 0.4 mg Cap) 1 Capsules By Mouth every day. Refills: 11. PATIENT EDUCATION INFORMATION: Instructions: Follow up: DIAGNOSIS: 4:CAD (coronary artery disease); 5:Diabetes; 6:Hyperlipidemia; 7:Essential hypertension; 8:Chronic obstructive pulmonary disease; 9:VASQUEZ (obstructive sleep apnea); 10:S/P CABG (coronary artery bypass graft) Normal [facility] ED Note-Physicianon 09-05-19 ED Note-Physician ED Note-Physician Basic Information Time Seen: Armin Bhatia DOJessica 09/03/2024 19:26 Chief Complaint Pt arrives to ED from home with possible rectal bleed and dizziness. Pt was here for a biopsy of prostate, says he woke up out of surgery and was having rectal bleeding, attempts were made in PACU to stop bleeding. Allan present, states whenever I pee, I History of Present Illness 73-year-old male to the emergency department with chief complaint of rectal bleeding. Patient reports he had a biopsy done today on his prostate. He reports that after the procedure he was having difficulty with rectal bleeding. He reports that he was in PACU for some time with direct pressure held by his surgeon. He reports that he was still bleeding but was discharged and told that it would stop soon. Patient reports that whenever he urinates he has blood coming per rectum. He denies any blood in the urine. He does have a Allan catheter in place. Reports he was feeling lightheaded dizzy and weak today after the surgery. Review of Systems A 10 point review of systems is negative except as noted above. Medical and Surgical History: Reviewed and noted Social history: Lives at home Tobacco: Denies Physical Exam Vitals & Measurements T: 37.9 ???C(Oral) HR: 69(Monitored) RR: 16 BP: 108/62 SpO2: 95% HT: 159 cm WT: 101.6 kg BMI: 40.19 VITALS: I have reviewed the triage vital signs. GENERAL: Well developed, well appearing adult in no acute distress. NEURO: Alert and oriented. Moves all extremities. Face is symmetric and expressive. EYES: PERRL. No scleral icterus or conjunctival injection. No discharge. HENT: Normocephalic, atraumatic. Hearing is grossly intact. Nares grossly patent and without discharge. Mucous membranes moist. NECK: No JVD. Patient moves neck without restriction. CARDIO: Rhythm regular. Normal rate. No murmur, rub, or gallop. Pulses equal bilaterally in the upper and lower extremity. No lower extremity edema. PULM: Lungs clear to auscultation in all rios. No wheezes, rales, or rhonchi. No conversational dyspnea. No splinting, stridor, or accessory muscle use. GI/: Abdomen is soft and non-tender. Normoactive bowel sounds. Rectal exam with nurse Christian at the bedside. No active bleeding. EXTREMITIES: Symmetric muscle bulk. No joint swelling. No clubbing, cyanosis, or deformity. SKIN: Warm and dry. Normal turgor. No rash or lesions appreciated. PSYCH: Mood, affect, and interaction is appropriate to the setting. Medical Decision Making 73-year-old male to the emergency department with chief complaint of rectal bleeding after a prostate biopsy. Vital stable, the patient is afebrile. Basic labs, CT imaging to be obtained. Patient agrees with this plan. Lab work reviewed and noted. He did have a drop in hemoglobin. He did have a pretty precipitous decline in his sodium level. Level was 129 currently, he was 138 on his preop labs. He has had large-volume diuresis during his ED stay with 3.[address] without acute findings. Discussed the case via telephone with the on-call urologist Dr. Nolasco. He reports the bleeding will be self-limited. No indication for intervention. Patient will be admitted to the hospital for further monitoring of his hyponatremia. It does appear to be symptomatic as the patient feels weak fatigued and dizzy. Assessment/Plan 1. Rectal bleeding (K62.5: Hemorrhage of anus and rectum) 2. Hyponatremia (E87.1: Hypo-osmolality and hyponatremia) 3. Polyuria (R35.89: Other polyuria) 4. UTI (urinary tract infection) (N39.0: Urinary tract infection, site not specified) 5. Acute on chronic heart failure with preserved ejection fraction (HFpEF) (I50.33: Acute on chronic diastolic (congestive) heart failure) 6. CAD (coronary artery disease) (I25.10: Atherosclerotic heart disease of [place] coronary artery without angina pectoris) 7. Diabetes (E11.9: Type 2 diabetes mellitus without complications) 8. Hyperlipidemia (E78.5: Hyperlipidemia, unspecified) 9. Essential hypertension (I10: Essential (primary) hypertension) 10. Chronic obstructive pulmonary disease (J44.9: Chronic obstructive pulmonary disease, unspecified) 11. VASQUEZ (obstructive sleep apnea) (G47.33: Obstructive sleep apnea (adult) (pediatric)) 12. S/P CABG (coronary artery bypass graft) (Z95.1: Presence of aortocoronary bypass graft) 13. Obesity (E66.9: Obesity, unspecified) Orders: diazepam, 5 mg = 1 mL, Injection, IV Push, Once, Stop date 09/03/24 20:45:00 EDT, STAT, Start date 09/03/24 20:45:00 EDT, 09/03/24 20:45:00 EDT Add on Test Add on Test B-Type Natriuretic Peptide Basic Metabolic Panel CBC w/ Auto Diff Chloride Level Urine Creatinine Urine CT Abdomen/Pelvis w/ Contrast ED Physician consult Hospitalist for continued care eGFR Extra SST Tube PT & PTT Sodium Level Urine Troponin UA with Cult Rflx Urine Culture Medications Administered Given diazepam 5 mg/mL Inj, 5 mg, IV Push Disposition Plan Patient Discharge C (more content not included)... Normal [facility] Comment on above: Result Comment: Elec tronically Signed By: Armin Bhatia DO\.br\Date and Time Signed: 09/04/24 03:02 EDT ED Patient Education Noteon 09-04-2024 ED Patient Education Note ED Patient Education Note Normal [facility] ED Patient Summaryon 025 ED Patient Summary ED Patient Summary [place] [id number] Patient Discharge Instructions Person Information Name: VÍCTOR NICHOLS SR Age: 73 Years Arrival Date: 09/03/2024 19:18:18 Discharge Diagnosis: 4:CAD (coronary artery disease); 5:Diabetes; 6:Hyperlipidemia; 7:Essential hypertension; 8:Chronic obstructive pulmonary disease; 9:VASQUEZ (obstructive sleep apnea); 10:S/P CABG (coronary artery bypass graft) Primary Care Physician: LUIS ALBERTO CARRASCO MD Provider Information Primary Provider: Armin Bhatia DO [facility] Wafer Substrate Tester:None The exam and treatment you received in the Emergency Department were for an urgent problem and are not intended as complete care. It is important that you follow up with a doctor, nurse practitioner, or physician???s assistant professor of drama for ongoing care. If your symptoms become worse or you do not improve as expected and you are unable to reach your usual health care provider, you should return to the Emergency Department. We are available 24 hours a day. SIMONE THOMPSON VÍCTOR Kit has been given the following list of patient education materials, prescriptions and follow-up instructions: Follow-up Instructions: In the event that this physician does not participate in your insurance network, please consult with your insurance company to find a nearby participating provider. Patient Education Materials: A MESSAGE TO ALL PATIENTS REGARDING OPIOIDS PRESCRIPTION OPIOIDS: WHAT YOU NEED TO KNOW Prescription opioids can be used to help relieve dtvgxbok-na-ylkxgl pain and are often prescribed following a surgery or injury, or for certain health conditions. These medications can be an important part of the treatment but also come with serious risks. It is important to work with your healthcare provider to make sure you are getting the safest, most effective care. WHAT ARE THE RISKS AND SIDE EFFECTS OF OPIOID USE? Prescription opioids carry serious risks of addiction and overdose, especially with prolonged use. An opioid overdose, often marked by slowed breathing, can cause sudden . The use of prescription opioids can have a number of side effects as well, even when taken as directed: ??? Tolerance???meaning you might need to take more of the medication for the same pain relief ??? Physical dependence???meaning you have symptoms of withdrawal when a medication is stopped ??? Increased sensitivity to pain ??? Constipation ??? Nausea, vomiting, and dry mouth ??? Sleepiness and dizziness ??? Confusion ??? Depression ??? Low levels of testosterone that can result in lower sex drive, energy, and strength ??? Itching and sweating RISKS ARE GREATER WITH: ??? History of drug misuse, substance use disorder, or overdose ??? Mental health conditions (such as depression or anxiety) ??? Sleep apnea ??? Older age (65 years and older) ??? Avoid alcohol while taking prescription opioids. Also, unless specifically advised by your health care provider, medications to avoid include: ??? Benzodiazepines (such as Xanax or Valium) ??? Muscle relaxants (such as Soma or Flexeril) ??? Hypnotics (such as Ambien or Lunesta) ??? Other prescription opioids KNOW YOUR OPTIONS Talk to your health care provider about ways to manage your pain that don???t involve prescription opioids. Some of these options may actually work better and have fewer risks and side effects. Options may include: ??? Pain relievers such as acetaminophen, ibuprofen, and naproxen ??? Some medication that are also used for depression or seizures ??? Physical therapy and exercise ??? Cognitive behavioral therapy, a psychological, goal-directed approach, in which patients learn how to modify physical, behavioral, and emotional triggers of pain and stress. IF YOU ARE PRESCRIBED OPIOIDS FOR PAIN: ??? Never take opioids in greater amounts or more often than prescribed. ??? Follow up with your primary health care provider. o Work together to create a plan on how to manage your pain. o Talk about ways to help manage your pain that don???t involve prescription opioids. o Talk about any and all concerns and side effects. ??? Help prevent misuse and abuse o Never sell or share prescription opioids. o Never use another person???s prescription opioids. ??? Store prescription opioids in a secure place and out of reach of others (this may include visitors, children, friends, and family). ??? Safely dispose of unused prescription opioids: Find your community drug take-back program or your pharmacy mail-back program, or flush them down the toilet, following guidance from the Food and Drug Administration (www.fda.gov/Drugs/R esourcesForYou). ??? Visit www.cdc.gov/drugover dose to learn about the risks of opioids abuse and overdose. ??? If you believe you may be struggling with addiction, tell your health care (more content not included)... Normal [facility] [place] 09-04-2024 WB Tube Collected Yes Invalid Interpretation Code [facility] Comment on above: Performed By: #### 1 [id number] #### [facility] [address] [place] [address] HEMATOLOGYOrdered By: SYSTEM SYSTEM on 09-04-2024 Hematocrit (Bld) [Volume fraction] 31.2 % Low 37.7 - 49.0 % Remisol Heme Hemoglobin (Bld) [Mass/Vol] 10.2 g/dL Low 13.5 - 17.5 gm/dL Remisol Heme Hct & Hgbon 09-04-2024 Hematocrit (Bld) [Volume fraction] 31.2 % Low 37.7-49.0 [facility] Comment on above: Performed By: #### 1 [id number] #### [facility] [address] [place] [address] Hemoglobin (Bld) [Mass/Vol] 10.2 g/dL Low 13.5-17.5 [facility] Comment on above: Performed By: #### 1 [id number] #### [facility] [address] [place] [address] Interdisciplinary Note - Hamilton e Manageron 09-04-2024 Interdisciplinary Note - Household Worker Interdisciplinary Note - Household Worker CM met with patient at bedside. Patient is from home and lives with in a multi level home with 1st floor set up and one large step to enter the home. Patient states he is independent with all self care at home and drives. Patient has a cane he uses as needed at home and currently denies any DC planning needs at this item. Patient states daughter or will transport home at DC and he follows with Dr Luis Alberto Carrasco for his PCP needs. CM reviewed OBS status with patient and SCRUGGS signed in ER. CM to follow. Normal [facility] Comment on above: Result Comment: Elec tronically Signed By: Amalia Christensen I\.br\Date and Time Signed: 09/04/24 09:24 EDT Laboratory - Microbiology an d Antimicrobial susceptibilityOrdered By: Amisha Whiteside on 09-04-2024 Bacteria identified Cx Nom (U) No growth to date [facility] Main OR Intraoperative Recor don 09-04-2024 Main OR Intraoperative Record Main OR Intraoperative Record IntraOp Document Type FT Summary Primary Physician: RUDI PINON MD Finalized Date/Time: 09/04/24 11:25:00 Pt. Name: VÍCTOR NICHOLS SR/Sex: 1950 Male Med Rec #: [id number] Physician: RUDI PINON MD Financial #: [id number] Pt. Type: A Room/Bed: Admit/Disch: 09/03/24 06:05:36 - 09/03/24 15:20:34 Institution: Case Times FT Entry 1 Patient Times In Room 09/03/24 08:26:00 Out Room 09/03/24 08:56:00 Procedure Times Start 09/03/24 08:33:00 Stop 09/03/24 08:50:00 Anesthesia Times Start 09/03/24 08:26:00 Stop 09/03/24 08:56:00 Last Modified By: Marti Wiley RN 09/03/24 08:56:22 Case Attendance FT Entry 1 Entry 2 Entry 3 Case Attendee Oscar ESCUDERO, Aleena PINON MD, Saurabh SAL, Marti GRIJALVA Role Performed ACADEMIC INTERVENTIONIST Surgeon - Primary Electric Cutter Operator - Primary Time In 09/03/24 08:26:00 09/03/24 08:31:00 09/03/24 08:26:00 Time Out 09/03/24 08:56:00 09/03/24 08:56:00 09/03/24 08:56:00 Procedure TRANSRECTAL ULTRASOUND TRANSRECTAL ULTRASOUND TRANSRECTAL ULTRASOUND PROSTATE W/ BX(.) PROSTATE W/ BX(.) PROSTATE W/ BX(.) Comments DR. MENDEZ SUPERVISING Last Modified By: Marti Wiley RN, RN, Marti Harris RN 09/03/24 08:56:23 09/03/24 08:56:23 09/03/24 08:56:23 Entry 4 Case Attendee Cam Yin CST Role Performed Scrub - Primary Time In 09/03/24 08:26:00 Time Out 09/03/24 08:56:00 Procedure TRANSRECTAL ULTRASOUND PROSTATE W/ BX(.) Comments Last Modified By: Marti Wiley RN 09/03/24 08:56:23 General Comments: NAMAN EMERY AND MARY URONAVIGATION REPS PRESENT FOR THIS CASE. DORON GONCALVESsenior game developer Protocols FT Pre-Care Text: Implements protective measures prior to operative or invasive procedure, confirms identity before the operative or invasive procedure, verifies operative procedure, surgical site, and laterality Entry 1 Procedure(s) TRANSRECTAL ULTRASOUND Patient Identity Birthday, ID Band PROSTATE W/ BX(.) Verified (select at Check, Patient least 2): Participation Consents / H and P Anesthesia Consent, Operative Site N/A Verified H&P, Surgery/Procedure Marking Verified Consent, Transfusion Consent Surgical Site Yes Laterality Verified n/a Verified Procedure Verified Yes Correct Patient Yes Position Verified Availability Equipment, Medication Prep Dry n/a Verified (If Applicable) PreOp Antibiotic Yes Time Out Aleena Moore CRNA, Given Participants RUDI PINON MD, Ott RN, Leann E, Dent CST, Beau Time Out Complete 09/03/24 08:33:00 Outcomes Met? Yes Last Modified By: Marti Wiley RN 09/03/24 08:33:06 Post-Care Text: The patient is free from signs and symptoms of injury caused by extraneous objects Allergy Information FT Pre-Care Text: Verifies allergies Entry 1 Allergies Reviewed? Yes Allergies Reviewed Self/Patient With Outcomes Met? Yes Last Modified By: Marti Wiley RN 09/03/24 08:32:03 Post-Care Text: The patient received appropriate medication(s) safely administered during the perioperative period Surgical Procedures FT Entry 1 Procedure Description Procedure TRANSRECTAL ULTRASOUND Modifiers . PROSTATE W/ BX Surgeon Description MRI GUIDED FUSION WITH TRUS BIOPSY Primary Procedure Yes Primary Surgeon RUDI PINON MD Start 09/03/24 08:33:00 Stop 09/03/24 08:50:00 Anesthesia Type General Surgical Service Urology Wound Class 2 - Clean-Contaminated Last Modified By: Marti Wiley RN 09/03/24 08:50:42 General Case Data FT Pre-Care Text: Classifies surgical wound, implements aseptic technique, initiates traffic control Entry 1 Case Information OR OR 5 FT Case Level Level 2 Wound Class 2 - Clean-Contaminated Specialty Urology ASA Class 3 Preop Diagnosis ELEVATED PSA, ABNORMAL Postop Same As Preop Yes MRI Postop Diagnosis ELEVATED PSA, ABNORMAL Outcomes Met? Yes MRI Last Modified By: Marti Wiley RN 09/03/24 10:12:12 Post-Care Text: The patient is free from signs and symptoms of infection Skin Assessment (Pre Procedure) FT Pre-Care Text: Implements protective measures to prevent skin/ tissue injury due to thermal or mechanical sources Evaluates for signs and symptoms of physical injury to skin and tissue Entry 1 Skin Integrity Intact, [place], Warm, & Skin Abnormality No Dry Outcomes Met? Yes Last Modified By: Marti Wiley RN 09/03/24 08:32:31 Post-Care Text: The patient is free from signs and symptoms of injury caused by extraneous objects Patient Positioning FT Pre-Care Text: Identifies physical alterations that require additional precautions for procedure-specific positioning, verifies presence of prosthetics or corrective devices, positions the patient, evaluates the patient for signs and symptoms of injury as a result of positioning Entry 1 Procedure TRANSRECTAL ULTRASOUND Body Position Lateral, right side up PROSTATE W (more content not included)... Normal [facility] U [place]lor[place] 09-04-2024 Chloride [Moles/Vol] 37 mmol/L Invalid Interpretation Code [facility] Comment on above: Performed By: #### 2 [id number] #### [facility] [address] [place] [address] U Creatinineon 09-04-2024 U Creatinine 27.9 mg/dL Invalid Interpretation Code [facility] Comment on above: Performed By: #### 2 [id number] #### [facility] [address] [place] [address] U Sodiumon 09-04-2024 Sodium [Moles/Vol] 35 mmol/L Invalid Interpretation Code [facility] Comment on above: Performed By: #### 2 [id number] #### [facility] [address] [place] [address] UA with Cult Rflxon 09-05-19 25 Bacteria Auto Ql (U) Trace Normal Trace [facility] Comment on above: Performed By: #### 4 [id number] #### [facility] [address] [place] [address] Bilirubin Ql (U) Negative Normal Negative [facility] Comment on above: Performed By: #### 4 [id number] #### [facility] [address] [place] [address] Clarity (U) Clear Normal Clear [facility] Comment on above: Performed By: #### 4 [id number] #### [facility] [address] [place] [address] Color (U) Colorless Abnormal Yellow [facility] Comment on above: Result Comment: Micr oscopic readings are only performed on those samples that meet specific criteria set forth by [facility]. Performed By: #### 4 [id number] #### [facility] [address] [place] [address] Epithelial cells.squamous Auto (Urine sed) [#/Area] 0-2 Invalid Interpretation Code [facility] Comment on above: Performed By: #### 4 [id number] #### [facility] [address] [place] [address] Glucose Ql (U) Negative Normal Negative [facility] Comment on above: Performed By: #### 4 [id number] #### [facility] [address] [place] [address] Hemoglobin Auto test strip (U) [Mass/Vol] 2+ mg/dL Abnormal Negative [facility] Comment on above: Performed By: #### 4 [id number] #### [facility] [address] [place] [address] Ketones Auto test strip Ql (U) Negative Normal Negative [facility] Comment on above: Performed By: #### 4 [id number] #### [facility] [address] [place] [address] Leukocyte esterase Auto test strip Ql (U) 500 Diana/uL Abnormal Negative [facility] Comment on above: Performed By: #### 4 [id number] #### [facility] [address] [place] [address] Mucus Auto Ql (U) Negative Normal Negative [facility] Comment on above: Performed By: #### 4 [id number] #### [facility] [address] [place] [address] Nitrite Auto test strip Ql (U) Negative Normal Negative [facility] Comment on above: Performed By: #### 4 [id number] #### [facility] [address] [place] [address] pH (U) 6.0 [pH] Invalid Interpretation Code 5.0-9.0 [facility] Comment on above: Performed By: #### 4 [id number] #### [facility] [address] [place] [address] Protein Ql (U) Negative Normal Negative [facility] Comment on above: Performed By: #### 4 [id number] #### [facility] [address] [place] [address] RBC Ql (U) 4-20 Abnormal 0-3 [facility] Comment on above: Performed By: #### 4 [id number] #### [facility] [address] [place] [address] Specific gravity (U) [Rel density] 1.015 Invalid Interpretation Code 1.005-1.030 [facility] Comment on above: Performed By: #### 4 [id number] #### [facility] [address] [place] [address] Urobilinogen (U) [Mass/Vol] Negative Normal Negative [facility] Comment on above: Performed By: #### 4 [id number] #### [facility] [address] [place] [address] WBC Auto (Urine sed) [#/Area] 31-75 Abnormal 0-5 [facility] Comment on above: Performed By: #### 4 [id number] #### [facility] [address] [place] [address] Type of Urine collection method Allan Normal [facility] Comment on above: Performed By: #### 4 [id number] #### [facility] [address] [place] [address] URINALYSISOrdered By: SYSTEM SYSTEM on 09-04-2024 Bacteria Auto Ql (U) Trace /HPF Normal Trace/HPF [facility] UA Auto SS Bilirubin Ql (U) Negative Normal Negativemg/ d L [facility] UA Auto SS Clarity (U) Clear (09/04/24 12:27 AM) Normal Clear [facility] UA Auto SS Color (U) Colorless 1 *ABN* (09/04/24 12:27 AM) Invalid Interpretation Code Yellow [facility] UA Auto SS Comment on above: Interpretive Data: M icroscopic readings are only performed on those samples that meet specific criteria set forth by [facility]. Epithelial cells.squamous Auto (Urine sed) [#/Area] 0-2 graded/HPF Invalid Interpretation Code [facility] UA Auto SS Glucose Ql (U) Negative Normal Negativemg/d L [facility] UA Auto SS Hemoglobin Auto test strip (U) [Mass/Vol] 2+ mg/dL Invalid Interpretation Code Negativemg/d L [facility] UA Auto SS Ketones Auto test strip Ql (U) Negative Normal Negativemg/d L [facility] UA Auto SS Leukocyte esterase Auto test strip Ql (U) 500 Diana/uL Diana/uL Invalid Interpretation Code NegativeLeu/ uL [facility] UA Auto SS Mucus Auto Ql (U) Negative Normal Negativegr ad ed/LPF [facility] UA Auto SS Nitrite Auto test strip Ql (U) Negative Normal Negativemg/d L [facility] UA Auto SS pH (U) 6.0 *NA* (09/04/24 12:27 AM) Invalid Interpretation Code 5.0 - 9.0 [facility] UA Auto SS Protein Ql (U) Negative Normal Negativemg/d L [facility] UA Auto SS RBC Ql (U) 4-20 graded/HPF Invalid Interpretation Code 0-3graded/HP F [facility] UA Auto SS Specific gravity (U) [Rel density] 1.015 *NA* (09/04/24 12:27 AM) Invalid Interpretation Code 1.005 - 1.030 [facility] UA Auto SS Urobilinogen (U) [Mass/Vol] Negative Normal Negativemg/d L [facility] UA Auto SS WBC Auto (Urine sed) [#/Area] 31-75 graded/HPF Invalid Interpretation Code 0-5graded/HP F [facility] UA Auto SS URINALYSISOrdered By: Armin Bhatia on 09-04-2024 UA Spec Desc Allan (09/04/24 12:27 AM) Normal [facility] UA Auto SS Work Phone: eGFRon 09-04-2024 eGFR 64 mL/min/1.73 m2 Normal >=59 [facility] Comment on above: Performed By: #### 1 [id number] #### [facility] [address] [place] [address] eGFR 80 mL/min/1.73 m2 Normal >=59 [facility] Comment on above: Performed By: #### 1 [id number] #### [facility] [address] [place] [address] BMPon 09-03-2024 Anion gap [Moles/Vol] 12 mmol/L Normal 6-16 [facility] Comment on above: Performed By: #### 2 [id number] #### [facility] [address] [place] [address] Calcium [Mass/Vol] 8.4 mg/dL Low 8.9-11.1 [facility] Comment on above: Performed By: #### 2 [id number] #### [facility] [address] [place] [address] Chloride [Moles/Vol] 97 mmol/L Low 101-111 [facility] Comment on above: Performed By: #### 2 [id number] #### [facility] [address] [place] [address] CO2 [Moles/Vol] 24 mmol/L Normal 21-31 [facility] Comment on above: Performed By: #### 2 [id number] #### [facility] [address] [place] [address] Creatinine [Mass/Vol] 1.0 mg/dL Normal 0.5-1.3 [facility] Comment on above: Performed By: #### 2 [id number] #### [facility] [address] [place] [address] Glucose [Mass/Vol] 150 mg/dL Normal 55-199 [facility] Comment on above: Performed By: #### 2 [id number] #### [facility] [address] [place] [address] Potassium [Moles/Vol] 4.2 mmol/L Normal 3.5-5.3 [facility] Comment on above: Performed By: #### 2 [id number] #### [facility] [address] [place] [address] Sodium [Moles/Vol] 129 mmol/L Low 135-145 [facility] Comment on above: Performed By: #### 2 [id number] #### [facility] [address] [place] [address] Urea nitrogen [Mass/Vol] 16 mg/dL Normal 5-21 [facility] Comment on above: Performed By: #### 2 [id number] #### [facility] [address] [place] [address] Urea nitrogen/Creatinine [Mass ratio] 16 No Units Normal 10-20 [facility] Comment on above: Performed By: #### 2 [id number] #### [facility] [address] [place] [address] Anion gap [Moles/Vol] 11 mmol/L Normal 6-16 [facility] Comment on above: Order Comment: To be drawn day of surgery. Performed By: #### 2 [id number] #### [facility] [address] [place] [address] Calcium [Mass/Vol] 8.9 mg/dL Normal 8.9-11.1 [facility] Comment on above: Order Comment: To be drawn day of surgery. Performed By: #### 2 [id number] #### [facility] [address] [place] [address] Chloride [Moles/Vol] 104 mmol/L Normal 101-111 [facility] Comment on above: Order Comment: To be drawn day of surgery. Performed By: #### 2 [id number] #### [facility] [address] [place] [address] CO2 [Moles/Vol] 27 mmol/L Normal 21-31 [facility] Comment on above: Order Comment: To be drawn day of surgery. Performed By: #### 2 [id number] #### [facility] [address] [place] [address] Creatinine [Mass/Vol] 1.1 mg/dL Normal 0.5-1.3 [facility] Comment on above: Order Comment: To be drawn day of surgery. Performed By: #### 2 [id number] #### [facility] [address] [place] [address] Glucose [Mass/Vol] 135 mg/dL Normal 55-199 [facility] Comment on above: Order Comment: To be drawn day of surgery. Performed By: #### 2 [id number] #### [facility] [address] [place] [address] Potassium [Moles/Vol] 3.8 mmol/L Normal 3.5-5.3 [facility] Comment on above: Order Comment: To be drawn day of surgery. Performed By: #### 2 [id number] #### [facility] [address] [place] [address] Sodium [Moles/Vol] 138 mmol/L Normal 135-145 [facility] Comment on above: Order Comment: To be drawn day of surgery. Performed By: #### 2 [id number] #### [facility] [address] [place] [address] Urea nitrogen [Mass/Vol] 16 mg/dL Normal 5-21 [facility] Comment on above: Order Comment: To be drawn day of surgery. Performed By: #### 2 [id number] #### [facility] [address] [place], [place] [id number] Urea nitrogen/Creatinine [Mass ratio] 14 No Units Normal 10-20 [facility] Comment on above: Order Comment: To be drawn day of surgery. Performed By: #### 2 [id number] #### [facility] [address] [place] [address] BNPon 5 Natriuretic peptide B (Bld) [Mass/Vol] 44 pg/mL Normal 5-80 [facility] Comment on above: Performed By: #### 1 [id number] #### [facility] [address] [place] [address] CBC w/ Auto Diffon 5 Basophils/100 WBC (Bld) 0.2 % Normal 0.0-2.0 [facility] Comment on above: Performed By: #### 2 [id number] #### [facility] [address] [place] [address] Basophils/Leukocytes Auto (Bld) [Pure # fraction] 0.0 E9/L Normal 0.0-0.2 [facility] Comment on above: Performed By: #### 2 [id number] #### [facility] [address] [place] [address] Eosinophils (Bld) [#/Vol] 0.0 E9/L Normal 0.0-0.5 [facility] Comment on above: Performed By: #### 2 [id number] #### [facility] [address] [place] [address] Eosinophils/100 WBC (Bld) 0.0 % Normal 0.0-8.0 [facility] Comment on above: Performed By: #### 2 [id number] #### [facility] [address] [place] [address] Erythrocyte distribution width (RBC) [Ratio] 13.3 % Normal 10.9-14.2 [facility] Comment on above: Performed By: #### 2 [id number] #### [facility] [address] [place] [address] Hematocrit (Bld) [Volume fraction] 33.9 % Low 37.7-49.0 [facility] Comment on above: Performed By: #### 2 [id number] #### [facility] [address] [place] [address] Hemoglobin (Bld) [Mass/Vol] 11.4 g/dL Low 13.5-17.5 [facility] Comment on above: Performed By: #### 2 [id number] #### [facility] [address] [place] [address] Lymphocytes (Bld) [#/Vol] 0.8 E9/L Low 1.0-4.0 [facility] Comment on above: Performed By: #### 2 [id number] #### [facility] [address] [place] [address] Lymphocytes/100 WBC (Bld) 4.4 % Low 14.0-50.0 [facility] Comment on above: Performed By: #### 2 [id number] #### [facility] [address] [place] [address] MCH (RBC) [Entitic mass] 31.1 pg Normal 27.0-34.0 [facility] Comment on above: Performed By: #### 2 [id number] #### [facility] [address] [place] [address] MCHC (RBC) [Mass/Vol] 33.8 g/dL Normal 31.4-36.0 [facility] Comment on above: Performed By: #### 2 [id number] #### [facility] [address] [place] [address] MCV (RBC) [Entitic vol] 92.1 fL Normal 80.0-100.0 [facility] Comment on above: Performed By: #### 2 [id number] #### [facility] [address] [place] [address] Monocytes (Bld) [#/Vol] 0.8 E9/L Normal 0.2-1.0 [facility] Comment on above: Performed By: #### 2 [id number] #### [facility] [address] [place] [address] Neutrophils (Bld) [#/Vol] 15.9 E9/L High 2.0-7.5 [facility] Comment on above: Performed By: #### 2 [id number] #### [facility] [address] [place] [address] Neutrophils/100 WBC (Bld) 90.7 % High 36.0-75.0 [facility] Comment on above: Performed By: #### 2 [id number] #### [facility] [address] [place] [address] Platelet mean volume (Bld) [Entitic vol] 9.6 fL Normal 6.4-10.8 [facility] Comment on above: Performed By: #### 2 [id number] #### [facility] [address] [place] [address] Platelets (Bld) [#/Vol] 237.0 E9/L Normal 150.0-500.0 [facility] Comment on above: Performed By: #### 2 [id number] #### [facility] [address] [place] [address] RBC (Bld) [#/Vol] 3.7 E12/L Low 4.3-5.9 [facility] Comment on above: Performed By: #### 2 [id number] #### [facility] [address] [place] [address] WBC corrected for nucl RBC Auto (Bld) [#/Vol] 17.5 E9/L High 4.0-11.0 [facility] Comment on above: Performed By: #### 2 [id number] #### [facility] [address] [place] [address] CHEMISTRYOrdered By: Catarina Ruano on 09-03-2024 Natriuretic peptide B (Bld) [Mass/Vol] 44 pg/mL Normal 5 - 80 pg/mL [facility] CHEMISTRYOrdered By: SYSTEM SYSTEM on 09-03-2024 Troponin HS 5.30 pg/mL Low 15.90 - 38.40 pg/mL [facility] Comment on above: Interpretive Data: T he 95% CI (Confidence Interval) PPV (Positive Predictive Value) for myocardial infarction in females is 38 pg/mL, in males 51 pg/mL. The results should be used in conjunction with clinical conditions of myocardial infarction. (Access High Sensitivity Troponin I Instructions For Use, John Vic, December 2017) Anion gap [Moles/Vol] 11 mmol/L Normal 6 - 16 mEq/L R emisol Chem Calcium [Mass/Vol] 8.9 mg/dL Normal 8.9 - 11. 1 mg/dL [facility] Chloride [Moles/Vol] 104 mmol/L Normal 101 - 1 11 mmol/L [facility] CO2 [Moles/Vol] 27 mmol/L Normal 21 - 31 mmol/L [facility] Creatinine [Mass/Vol] 1.1 mg/dL Normal 0.5 - 1.3 mg/dL [facility] eGFR 71 mL/min/1.73 m2 Normal >=59mL/min /1 .73 m2 [facility] Glucose [Mass/Vol] 135 mg/dL Normal 55 - 199 mg/dL [facility] Potassium [Moles/Vol] 3.8 mmol/L Normal 3.5 - 5.3 mmol/L [facility] Sodium [Moles/Vol] 138 mmol/L Normal 135 - 145 mmol/L [facility] Urea nitrogen [Mass/Vol] 16 mg/dL Normal 5 - 21 mg/d L [facility] Urea nitrogen/Creatinine [Mass ratio] 14 mg/mg Normal 10 - 20 [facility] CHEMISTRYOrdered By: King ROP User on 09-03-2024 Glucose [Mass/Vol] 127 mg/dL High 55 - 99 mg/dL [facility] POC Subsection Comment on above: Result Comment: Sandy paty Meter POC Username TORY AIDA Invalid Interpretation Code [facility] POC Subsection Sodium [Moles/Vol] [id number] mmol/L Invalid Interpretation Code [facility] POC Subsection Sodium [Moles/Vol] [id number] mmol/L Invalid Interpretation Code [facility] POC Subsection COAGULATIONOrdered By: Leon Ruano on 09-03-2024 aPTT Coag (PPP) [Time] 28.0 s Normal 25.1 - 36.5 second(s) [facility] Auto Coag Comment on above: Interpretive Data: P arameter 15 days - 4 weeks 1 - 5 months 6 - 11 months 1 - 5 years 6 - 10 years 11 - 17 years PTT Mean: 35.4 (27.6-45.6) Mean: 33.5 (24.8-40.7) Mean: 32.4 (25.1-40.7) Mean: 31.6 (24.0-39.2) Mean: 31.6 (26.9-38.7) Mean: 31.0 (24.6-38.4) Pediatric Reference ranges were obtained from a study by Carlos Mendoza et al. prepared from 1437 samples obtained at 7 different centers using the same coagulation reagent and instrumentation as [facility]. Currently there are no coagulation studies available worldwide for children to 14 days, and no normal ranges. Heparin therapeutic range (represented by Anti-Factor Xa activity of 0.2 - 0.4 U/mL) corresponds to PTT of 56.6 - 109.0 sec. INR Coag (PPP) [Relative time] 1.15 {INR} Invalid Interpretation Code [facility] Auto Coag Comment on above: Interpretive Data: I NR results are specifically intended to assess patients stabilized on long-term Anticoagulation therapy suggested INR s Less Intensive Anticoagulation 2.0 3.0 Conventional Range 3.0 4.5 PT Coag (PPP) [Time] 12.9 s High 9.4 - 1 2.5 second(s) [facility] Auto Coag Comment on above: Interpretive Data: 1 5 days - 4 weeks 1 - 5 months 6 -11 months 1-5 years 6-10 years 11 -17 years Mean: 11.2 (9.5-12.6) Mean: 11.0 (9.7-12.8) Mean: 11.0 (9.8-13.0) Mean: 11.3 (9.9-13.4) Mean: 11.7 (10.0-14.6) Mean: 11.8 (10.0 - 14.1) Pediatric Reference ranges were obtained from a study by Carlos Mendoza et al. prepared from 1437 samples obtained at 7 different centers using the same coagulation reagent and instrumentation as [facility]. Currently there are no coagulation studies available worldwide for children to 14 days, and no normal ranges. Capillary Glucose POCon 05-0 Glucose [Mass/Vol] 127 mg/dL High 55-99 [facility] Comment on above: Result Comment: Sandy paty Meter Performed By: #### 2 [id number] #### [facility] [address] [place] [address] Discharge Instructionson Discharge Instructions Discharge Instructions SIMONE THOMPSON VÍCTOR W :1950 Visit Date:09/03/2024 Inpatient Discharge Instructions Your Care Team Admitting Physician - RUDI PINON MD Referring Physician - RUDI PINON MD Reason for Your Visit ELEVATED PSA, ABNORMAL MRIF What to do next Instructions From Your Doctor Event Name Event Result Discharge Instructions Freetext Hydrate w/ at least 2L/day. Pain control w/ tylenol. Can ambulate. Complete antibiotic course. F/U in 2 weeks to review path Discharge Activity Ambulate as tolerated, Resume normal activities in 24 hours, Arrange for a responsible adult supervision for 24 hours, Expect mild pain, Expect minimal amount of drainage and/or bleeding Discharge Restrictions No driving for 24 hrs, Do not make important decisions for 24 hours, Do not drink alcoholic beverages for 24 hours Discharge Diet(s) Regular Call Your Doctor For Temperature above 101.5 degrees, Redness, swelling, or pus at operative site, Severe pain at the operative site Discharge Instructions Discharge Instructions New Follow Up Appointments after Discharge Follow Up with RUDI PINON When: Within 2 weeks Medications What How Much When Why Instructions Next Dose New cephalexin (Keflex 500 mg Cap) 1 Capsules By Mouth Every 12 hours Duration: 3 Days Pickup at [facility]/pharmacy #[id number] Unchanged albuterol (Albuterol (Eqv-Ventolin HFA) 90 mcg/ inh inhalation aerosol) 2 Inhalation Inhalation Every 6 hours as needed for Shortness of breath or wheezing Unchanged aspirin (aspirin 81 mg oral capsule) 1 Capsules By Mouth Every day Unchanged atorvastatin (atorvastatin 40 mg Tab) 1 Tablets By Mouth Every day Unchanged clopidogrel (clopidogrel 75 mg Tab) 1 Tablets By Mouth Every day Unchanged docusate (docusate sodium 100 mg Cap) 1 Capsules By Mouth Every day as needed for for constipation Unchanged furosemide (furosemide 20 mg Tab) 1 Tablets By Mouth Every day Unchanged hydrochlorothiazide- lisinopril (hydrochlorothiazide -lisinopril 12.5 mg-10 mg Tab) 1 Tablets By Mouth Every day Unchanged isosorbide mononitrate (isosorbide mononitrate 120 mg ER Tab) 1 Tablets By Mouth Once a day (in the morning) Unchanged latanoprost ophthalmic (latanoprost Opth 0.005% Ritu) 1 Drops Unchanged metoprolol (metoprolol succinate 25 mg ER Tab) 1 Tablets By Mouth Every day Unchanged nitroglycerin 0.4 Milligram Sublingual Every 5 minutes Unchanged omeprazole (omeprazole 20 mg Cap-DR) 1 Capsules By Mouth Every day Unchanged potassium chloride (Potassium Chloride (Ybt-Bupz-Apo 10) 10 mEq oral tablet, extended release) 1 Tablets By Mouth Every day Unchanged tamsulosin (tamsulosin 0.4 mg Cap) 1 Capsules By Mouth Every day BPH with urinary obstruction Pharmacy Information [facility]/pharmacy #[id number]: [address], [place] [id number] [phone] [employer] [facility] [place], [place] Post-Operative Instructions for Prostate Biopsy *Even though there are no visible incisions, multiple prostate biopsies have been taken through the rectum and you need to follow some instructions to minimize the risks of bleeding *You may see some blood in your urine and stool for up to 1 week (and blood in the semen for several months) DIET *You may resume your normal diet, but you may want to avoid alcohol, carbonated drinks, caffeine, and spicy foods, which may increase the irritation from the surgery and the catheter. *Drink plenty of water to keep the urine clear. ACTIVITY *You should limit any physical activity for about 48 hours *No heavy lifting or straining (10 pound limit) *No driving a car and limit long car rides for 2 days *No strenuous exercise *No sexual intercourse until this is discussed with your doctor BOWELS Try to keep your bowel movements soft to minimize straining to have a bowel movement. You may use a stool softener or over the counter laxative if needed. Difficult bowel movements may lead to straining and bleeding from the prostate. MEDICATIONS *You may resume your home medications unless instructed otherwise *Hold aspirin, ibuprofen, Coumadin (warfarin) and other blood thinners for about two days or until there is no active bleeding unless otherwise instructed *Finish the antibiotic which you have already started Things to watch for which would require an Emergency Room visit or call 911: (this is not a complete list) *Persistent or heavy bleeding or blood clots from the rectum or in the urine *Inability to urinate *Fever over 101.5 degrees Fahrenheit, with or without chills *Severe drug reactions with itching, hives, or rash *Tenderness or swelling of the calves, chest pain, or shortness of breath Please call the office to arrange for your post-operative appointment in 1-2 weeks ([phone] or [phone]) Common Emergency [facility] (more content not included)... Normal [facility] Comment on above: Result Comment: Elec tronically Signed By: Jessica Esparza\jose\Date and Time Signed: 09/03/24 09:15 EDT HEMATOLOGYOrdered By: SYSTEM SYSTEM on 09-03-2024 Basophils/100 WBC (Bld) 0.2 % Normal 0.0 - 2.0 % [facility] Basophils/Leukocytes Auto (Bld) [Pure # fraction] 0.0 E9/L Normal 0.0 - 0.2 E9/L [facility] Eosinophils (Bld) [#/Vol] 0.0 E9/L Normal 0.0 - 0.5 E9/L [facility] Eosinophils/100 WBC (Bld) 0.0 % Normal 0.0 - 8.0 % [facility] Erythrocyte distribution width (RBC) [Ratio] 13.3 % Normal 10.9 - 14.2 % [facility] Hematocrit (Bld) [Volume fraction] 33.9 % Low 37.7 - 49.0 % [facility] Hemoglobin (Bld) [Mass/Vol] 11.4 g/dL Low 13.5 - 17.5 gm/dL [facility] Lymphocytes (Bld) [#/Vol] 0.8 E9/L Low 1.0 - 4.0 E9/L [facility] Lymphocytes/100 WBC (Bld) 4.4 % Low 14.0 - 50.0 % [facility] MCH (RBC) [Entitic mass] 31.1 pg Normal 27. 0 - 34.0 pg [facility] MCHC (RBC) [Mass/Vol] 33.8 g/dL Normal 31.4 - 36.0 gm/dL [facility] MCV (RBC) [Entitic vol] 92.1 fL Normal 80.0 - 100.0 fL [facility] Monocytes (Bld) [#/Vol] 0.8 E9/L Normal 0.2 - 1.0 E9/L [facility] Monocytes/100 WBC (Bld) 4.7 % Normal 4.0 - 14.0 % [facility] Neutrophils (Bld) [#/Vol] 15.9 E9/L High 2.0 - 7.5 E9/L [facility] Neutrophils/100 WBC (Bld) 90.7 % High 36.0 - 75.0 % [facility] Platelet mean volume (Bld) [Entitic vol] 9.6 fL Normal 6.4 - 10.8 fL [facility] Platelets (Bld) [#/Vol] 237.0 E9/L Normal 150. 0 - 500.0 E9/L [facility] RBC (Bld) [#/Vol] 3.7 E12/L Low 4.3 - 5.9 E12/L [facility] WBC corrected for nucl RBC Auto (Bld) [#/Vol] 17.5 E9/L High 4.0 - 11.0 E9/L [facility] Inpatient Patient Summaryon 09-03-2024 Inpatient Patient Summary Inpatient Patient Summary [place] [address] [facility] Clinical Discharge Instructions PERSON INFORMATION Name: VÍCTOR NICHOLS SR [facility] Admitting Physician: RUDI PINON MD Attending Physician: RUDI PINON MD PCP: LUIS ALBERTO CARRASCO MD Discharge Diagnosis: Comment: PATIENT EDUCATION INFORMATION Instructions: Medication Leaflets: Follow up: With: Address: When: RUDI PINON MEDICATION LIST New Medications [id number], [address], [place] [id number], [phone] cephalexin (Keflex 500 mg Cap) 1 Capsules By Mouth every 12 hours for 3 Days. Refills: 0. Medications to Continue with No Changes Other Medications albuterol (Albuterol (Eqv-Ventolin HFA) 90 mcg/inh inhalation aerosol) 2 Inhalation Inhalation every 6 hours as needed Shortness of breath or wheezing. aspirin (aspirin 81 mg oral capsule) 1 Capsules By Mouth every day. atorvastatin (atorvastatin 40 mg Tab) 1 Tablets By Mouth every day. clopidogrel (clopidogrel 75 mg Tab) 1 Tablets By Mouth every day. docusate (docusate sodium 100 mg Cap) 1 Capsules By Mouth every day as needed for constipation. furosemide (furosemide 20 mg Tab) 1 Tablets By Mouth every day. hydrochlorothiazide- lisinopril (hydrochlorothiazide -lisinopril 12.5 mg-10 mg Tab) 1 Tablets By Mouth every day. isosorbide mononitrate (isosorbide mononitrate 120 mg ER Tab) 1 Tablets By Mouth once a day (in the morning). latanoprost ophthalmic (latanoprost Opth 0.005% Ritu) 1 Drops. metoprolol (metoprolol succinate 25 mg ER Tab) 1 Tablets By Mouth every day. nitroglycerin 0.4 Milligram Sublingual every 5 minutes. omeprazole (omeprazole 20 mg Cap-DR) 1 Capsules By Mouth every day. potassium chloride (Potassium Chloride (Kfw-Hzxh-Gbh 10) 10 mEq oral tablet, extended release) 1 Tablets By Mouth every day. tamsulosin (tamsulosin 0.4 mg Cap) 1 Capsules By Mouth every day. Refills: 11. Comment: Jhonny [facility] Main OR PACU I [facility] Main OR PACU I Record Main OR PACU I Record PACU Phase I Document Type FT Summary Primary Physician: RUDI PINON MD Finalized Date/Time: 09/03/24 09:37:48 Pt. Name: VÍCTOR NICHOLS SR Kit RiversB./Sex: 1950 Male Med Rec #: [id number] Physician: RUDI PINON MD Financial #: [id number] Pt. Type: A Room/Bed: [facility]07/04 Admit/Disch: 09/03/24 06:05:36 - Institution: Case Times PACU I FT Pre-Care Text: Identifies barriers to communication and implements measures to provide psychological support Develops individualized plan of care, and ensures continuity of care Maintains patient's dignity and privacy, and maintains patient confidentiality Identifies and reports philosophical, cultural, and spiritual beliefs and values Identifies individual values and wishes concerning care Implements aseptic technique, and administers prescribed antibiotic therapy and immunizing agents as ordered Evaluates postoperative tissue perfusion Implements thermoregulation measures, and monitors body temperature Evaluates postoperative respiratory status Evaluates postoperative cardiac status Evaluates postoperative neurological status Assesses pain control, collaborated in initiating patient-controlled analgesia and implements alternative methods of pain control Verifies allergies, administers prescribed medications and solutions, evaluates response to medications Entry 1 In PACU I 09/03/24 08:57:00 Discharge from PACU 09/03/24 09:27:00 I Outcomes Met? Yes Last Modified By: Franca Whalen RN 09/03/24 09:37:21 Post-Care Text: The patient demonstrates knowledge of the expected response to the operative or invasive procedure The patient's care is consistent with the individualized perioperative plan of care The patient's right to privacy is maintained The patient's value system, lifestyle, ethnicity, and culture are considered, respected, and incorporated into the perioperative plan of care The patient participates in decisions affecting his or her perioperative plan of care The patient is free from signs and symptoms of infection The patient has wound/tissue perfusion consistent with or improved from baseline levels established preoperatively The patient is at or returning to normothermia at the conclusion of the immediate postoperative period The patient's respiratory function is consistent with or improved from baseline levels established preoperatively The patient's cardiovascular status is consistent with or improved from baseline levels established preoperatively The patient's cardiovascular status is consistent with or improved from baseline levels established preoperatively The patient demonstrates and/or reports adequate pain control throughout the perioperative period The patient received appropriate medication(s), safely administered during the perioperative period Acuity Level PACU I FT Entry 1 Start Time 09/03/24 08:57:00 Stop Time 09/03/24 09:27:00 Acuity Level Acuity Level I Last Modified By: Franca Whalen RN 09/03/24 09:37:43 Finalized By: Franca Whalen RN Document Signatures Signed By: Franca Whalen RN 09/03/24 09:37 [facility] Main OR PACU II Recordon Main OR PACU II Record Main OR PACU II Record PACU Phase II Document Type FT Summary Primary Physician: RUDI PINON MD Finalized Date/Time: 09/03/24 15:24:32 Pt. Name: VÍCTOR NICHOLS SR./Sex: 1950 Male Med Rec #: [id number] Physician: RUDI PINON MD Financial #: [id number] Pt. Type: A Room/Bed: [place] [address] Admit/Disch: 09/03/24 06:05:36 - Institution: Case Times PACU II FT Pre-Care Text: Identifies barriers to communication and implements measures to provide psychological support and determines knowledge level Develops individualized plan of care, and ensures continuity of care Maintains patient's dignity and privacy, and maintains patient confidentiality Identifies and reports philosophical, cultural, and spiritual beliefs and values Identifies individual values and wishes concerning care administers prescribed antibiotic therapy and immunizing agents as ordered, Evaluates postoperative tissue perfusion Implements thermoregulation measures, and monitors body temperature Evaluates postoperative respiratory status Evaluates postoperative cardiac status Evaluates postoperative neurological status Assesses pain control, collaborated in initiating patient-controlled analgesia and implements alternative methods of pain control Verifies allergies, administers prescribed medications and solutions, evaluates response to medications Entry 1 In PACU II 09/03/24 09:25:00 Discharge from PACU 09/03/24 15:20:00 II Outcomes Met? Yes Last Modified By: Jessica Esparza 09/03/24 15:24:31 Post-Care Text: The patient demonstrates knowledge of the expected response to the operative or invasive procedure The patient's care is consistent with the individualized perioperative plan of care The patient's right to privacy is maintained The patient's value system, lifestyle, ethnicity, and culture are considered, respected, and incorporated into the perioperative plan of care The patient participates in decisions affecting his or her perioperative plan of care. The patient is free from signs and symptoms of infection The patient has wound/tissue perfusion consistent with or improved from baseline levels established preoperatively The patient is at or returning to normothermia at the conclusion of the immediate postoperative period The patient's respiratory function is consistent with or improved from baseline levels established preoperatively The patient's cardiovascular status is consistent with or improved from baseline levels established preoperatively The patient's neurological status is consistent with or improved from baseline levels established preoperatively The patient demonstrates and/or reports adequate pain control throughout the perioperative period The patient received appropriate medication(s), safely administered during the perioperative period Finalized By: Jessica Esparza Document Signatures Signed By: Jessica Esparza 09/03/24 15:24 Normal [facility] Main OR Preoperative Recordo n 09-03-2024 Main OR Preoperative Record Main OR Preoperative Record PreOp Document Type FT Summary Primary Physician: RUDI PINON MD Finalized Date/Time: 09/03/24 08:38:17 Pt. Name: SIMONE VÍCTOR THOMPSON/Sex: 1950 Male Med Rec #: [id number] Physician: RUDI PINON MD Financial #: [id number] Pt. Type: A Room/Bed: Admit/Disch: 09/03/24 06:05:36 - Institution: Case Times PreOp FT Pre-Care Text: Verifies consent for planned procedure, identifies individual values and wishes concerning care, includes family members in perioperative teaching Entry 1 Patient Times. In Pre Surgery 09/03/24 06:30:00 Out Pre Surgery 09/03/24 08:24:00 Outcomes Met? Yes Last Modified By: Marti Wiley RN 09/03/24 08:38:15 Post-Care Text: The patient participates in decisions affecting his or her perioperative plan of care Finalized By: Marti Wiley RN Document Signatures Signed By: Marti Wiley RN 09/03/24 08:38 Normal [facility] Operative Reporton Operative Report Operative Report Patient: VÍCTOR NICHOLS SR Age: 73 years Sex: Male : 1950 Associated Diagnoses: None Author: RUDI PINON MD Procedure SURGEON: Rudi Pinon MD PREOPERATIVE DIAGNOSIS: Elevated PSA, abnormal MRI POSTOPERATIVE DIAGNOSIS: Same PROCEDURE: MRI fusion prostate transrectal ultrasound biopsy FINDINGS: Prostate volume 25 cc, lesion in the left periphery biopsied with 5 cores, standard 12 core prostate biopsy ANESTHESIA: Local and general anesthesia INTRAVENOUS FLUIDS: None ESTIMATED BLOOD LOSS: 0cc TUBES AND DRAINS: None SPECIMENS: Prostate biopsy cores COMPLICATIONS: None INDICATIONS FOR PROCEDURE: Patient is a 73-year-old male with abnormal MRI, elevated PSA presenting for the aforementioned procedure. H&P was reviewed, informed consent was obtained, patient understood risk, benefits, alternatives of the procedure and wished to proceed. OPERATIVE DETAIL: He was brought to the operative suite and placed in the left lateral decubitus position and prepped and draped in normal sterile fashion. Timeout was performed confirming patient, procedure, side, all in the room agreed. We began by inserting a transrectal probe into the rectum and ultrasound images of the prostate was obtained. Prostate was approximately 25 cc. We then began with targeted biopsy of the MRI prostate lesion identified in the left periphery. 6 biopsy cores was obtained. We then did a standard 12 core biopsy beginning in the right lateral base and going down in a systematic fashion. Once this was done we used 1% lidocaine to anesthetize the neurovascular bundles. Probe was then removed without incident. Pressure was then placed on the rectal fossa. This concluded the procedure. Patient was then awakened anesthesia and transferred to PACU in stable condition. PLAN: F/U in 1 to 2 weeks to review prostate biopsy. Complete antibiotic course. Normal [facility] Comment on above: Result Comment: Elec tronically Signed By: DARRON FRANCIS, RUDI\.br\Date and Time Signed: 09/03/24 10:15 EDT Outpatient Surgery Discharge Instructionon 09-03-2024 Outpatient Surgery Discharge Instruction Outpatient Surgery Discharge Instruction [place] [id number] Patient Discharge Instructions PERSON INFORMATION Name: VÍCTOR NICHOLS SR Kit Date of : 1950 Current Date: 09/03/2024 09:12:32 PHYSICIANS Admitting Physician: RUDI PINON MD Discharge Diagnosis: VÍCTOR NICHOLS SR has been given the following list of follow-up instructions, prescriptions, and patient education materials: PATIENT FOLLOW-UP INFORMATION Diet: Regular Discharge Activity: Ambulate as tolerated, Resume normal activities in 24 hours, Arrange for a responsible adult supervision for 24 hours, Expect mild pain, Expect minimal amount of drainage and/or bleeding Discharge Restrictions: No driving for 24 hrs, Do not make important decisions for 24 hours, Do not drink alcoholic beverages for 24 hours Call Your Doctor For: Temperature above 101.5 degrees, Redness, swelling, or pus at operative site, Severe pain at the operative site Additional Instructions: Hydrate w/ at least 2L/day Pain control w/ tylenol Can ambulate Complete antibiotic course F/U in 2 weeks to review path IF UNABLE TO CONTACT YOUR PHYSICIAN AND YOU FEEL IT IS AN EMERGENCY, GO TO THE NEAREST EMERGENCY ROOM OR CALL 911 I, VÍCTOR NICHOLS SR, have received the attached patient education materials/instructio ns and have verbalized understanding: May we do a follow up call? Yes No I was present when discharge instructions were given Patient Signature Date Clinican/Nurse Signature Date Follow up: With: Address: When: RUDI PINON Pharmacy Information: You may receive a survey from Bhavik Baez asking you to rate your care experience. Your feedback is important and will help us understand what we do well and how we can improve the quality of care we provide to you, your loved ones and our community. It???s an honor to serve you. Thank you for choosing [facility] HERE ARE THE MEDICATION CHANGES THAT OCCURRED DURING YOUR HOSPITAL STAY New Medications [id number], [address], [place] [id number], [phone] cephalexin (Keflex 500 mg Cap) 1 Capsules By Mouth every 12 hours for 3 Days. Refills: 0. Medications to Continue with No Changes Other Medications albuterol (Albuterol (Eqv-Ventolin HFA) 90 mcg/inh inhalation aerosol) 2 Inhalation Inhalation every 6 hours as needed Shortness of breath or wheezing. aspirin (aspirin 81 mg oral capsule) 1 Capsules By Mouth every day. atorvastatin (atorvastatin 40 mg Tab) 1 Tablets By Mouth every day. clopidogrel (clopidogrel 75 mg Tab) 1 Tablets By Mouth every day. docusate (docusate sodium 100 mg Cap) 1 Capsules By Mouth every day as needed for constipation. furosemide (furosemide 20 mg Tab) 1 Tablets By Mouth every day. hydrochlorothiazide- lisinopril (hydrochlorothiazide -lisinopril 12.5 mg-10 mg Tab) 1 Tablets By Mouth every day. isosorbide mononitrate (isosorbide mononitrate 120 mg ER Tab) 1 Tablets By Mouth once a day (in the morning). latanoprost ophthalmic (latanoprost Opth 0.005% Ritu) 1 Drops. metoprolol (metoprolol succinate 25 mg ER Tab) 1 Tablets By Mouth every day. nitroglycerin 0.4 Milligram Sublingual every 5 minutes. omeprazole (omeprazole 20 mg Cap-DR) 1 Capsules By Mouth every day. potassium chloride (Potassium Chloride (Tmk-Cnsf-Fjz 10) 10 mEq oral tablet, extended release) 1 Tablets By Mouth every day. tamsulosin (tamsulosin 0.4 mg Cap) 1 Capsules By Mouth every day. Refills: 11. PATIENT EDUCATION INFORMATION Instructions: Medication Leaflets: Normal [facility] PT & PTTon 09-03-2024 aPTT Coag (PPP) [Time] 28.0 second(s) Normal 25.1-36.5 [facility] Comment on above: Result Comment: Para meter 15 days - 4 weeks 1 - 5 months 6 - 11 months 1 - 5 years 6 - 10 years 11 - 17 years PTT Mean: 35.4 (27.6-45.6) Mean: 33.5 (24.8-40.7) Mean: 32.4 (25.1-40.7) Mean: 31.6 (24.0-39.2) Mean: 31.6 (26.9-38.7) Mean: 31.0 (24.6-38.4) Pediatric Reference ranges were obtained from a study by Carlos Mendoza et al. prepared from 1437 samples obtained at 7 different centers using the same coagulation reagent and instrumentation as [facility]. Currently there are no coagulation studies available worldwide for children to 14 days, and no normal ranges. Heparin therapeutic range (represented by Anti-Factor Xa activity of 0.2 - 0.4 U/mL) corresponds to PTT of 56.6 - 109.0 sec. Performed By: #### 1 [id number] #### [facility] [address] [place] [address] INR Coag (PPP) [Relative time] 1.15 {INR} Invalid Interpretation Code [facility] Comment on above: Result Comment: INR results are specifically intended to assess patients stabilized on long-term Anticoagulation therapy suggested INR???s ???Less Intensive Anticoagulation??? 2.0 ??? 3.0 Conventional Range 3.0 ??? 4.5 Performed By: #### 1 [id number] #### [facility] [address] [place] [address] PT Coag (PPP) [Time] 12.9 second(s) High 9.4-12.5 [facility] Comment on above: Result Comment: 15 d ays - 4 weeks 1 - 5 months 6 -11 months 1-5 years 6-10 years 11 -17 years Mean: 11.2 (9.5-12.6) Mean: 11.0 (9.7-12.8) Mean: 11.0 (9.8-13.0) Mean: 11.3 (9.9-13.4) Mean: 11.7 (10.0-14.6) Mean: 11.8 (10.0 - 14.1) Pediatric Reference ranges were obtained from a study by Carlos Mendoza et al. prepared from 1437 samples obtained at 7 different centers using the same coagulation reagent and instrumentation as [facility]. Currently there are no coagulation studies available worldwide for children to 14 days, and no normal ranges. Performed By: #### 1 [id number] #### [facility] [address] [place] [address] Troponinon 09-03-2024 Troponin HS 5.30 pg/mL Low 15.90-38.40 [facility] Comment on above: Result Comment: The 95% CI (Confidence Interval) PPV (Positive Predictive Value) for myocardial infarction in females is 38 pg/mL, in males 51 pg/mL. The results should be used in conjunction with clinical conditions of myocardial infarction. (Access High Sensitivity Troponin I Instructions For Use, John Vic, December 2017) Performed By: #### 2 [id number] #### [facility] [address] [place] [address] eGFRon 09-03-2024 eGFR 80 mL/min/1.73 m2 Normal >=59 [facility] Comment on above: Performed By: #### 1 [id number] #### [facility] [address] [place] [address] eGFR 71 mL/min/1.73 m2 Normal >=59 [facility] Comment on above: Performed By: #### 1 [id number] ####[facility] [address] [place] [address] US venous duplex LE LTon US venous duplex LE LT [facility] [place] [address] [place], [place] [id number] Ultrasound Report Signed Patient: Víctor Nichols Sr MR#: [id number] : 1950 Acct:[id number] Age/Sex: 73 / M ADM Date: 08/25/24 Loc: Room: Type: [facility] Attending Dr: Jairo Ch CLOTH INSPECTOR Ordering Provider: Jairo Ch APRN Date of Service: 08/25/24 US/US venous duplex LE LT: R60.0, R60.9 Copies to: Jairo Ch APRN LEFT LOWER EXTREMITY VENOUS DUPLEX INDICATION: Leg edema. Unilateral left lower extremity venous duplex Doppler study was obtained utilizing B-mode, color- flow and spectral Doppler. FINDINGS: The left common femoral, femoral, and popliteal veins showed adequate compressibility, color-flow and augmentation. The left posterior tibial and peroneal veins were compressible, as well as proximal greater saphenous vein. The contralateral right common femoral vein was compressible with color-flow and augmentation. US/US venous duplex LE LT IMPRESSION: NO EVIDENCE OF DEEP VENOUS THROMBOSIS IN THE LEFT LOWER EXTREMITY. NO SUPERFICIAL THROMBOPHLEBITIS WAS NOTED. There is an anechoic structure identified in the left popliteal fossa measuring 3.5 x 1.1 cm. This may represent a Escobar's cyst. Impression dictated by: Peter Aguilar MD08/26/2024 3:12 PM Dictation Location: [place] [address] Tech: Shelly Allison Transcribed By: PONCHO 08/26/241511 Dictated By: Peter Aguilar MD 08/26/24 151 Signed By: 08/26/24 151 Normal [facility] BNP ser/plasOrdered By: Shubham Ch on 08-25-2024 Natriuretic peptide B (Bld) [Mass/Vol] 55.0 pg/mL Normal 5-100 [facility] Comment on above: Result Comment: PERF ORMED BY: [place] [address] PATHOLOGIST HL7 INTERFACE DEVELOPER KIM ROQUE M.D. Performed By: #### B SEATING UPHOLSTERER ####[place] [id number] [address] Basic Metabolic Panelon 08-05 GFR/1.73 sq M.predicted MDRD (S/P/Bld) [Vol rate/Area] mL/min/{1.73_m2} Normal [facility] Comment on above: Order Comment: STAT BUN/CREAT FOR CT Performed By: #### B MP ####[address] angio chest PE protocolon 08-25-2024 CT angio chest PE protocol [facility] [place] [address] [place] [address] CT Scan Report Signed Patient: Víctor Nichols MR#: [id number] : 1950 Acct:[id number] Age/Sex: 73 / M ADM Date: 08/25/24 Loc: Room: Type: [facility] Attending Dr: Jairo Ch CLOTH INSPECTOR Copies to: Jairo Ch APRN Ordering Provider: Jairo Ch APRN Date of Service: 08/25/24 CT/CT angio chest PE protocol: R60.[address] PULMONARY ANGIOGRAM WITH CONTRAST CLINICAL HISTORY: Shortness of breath, tachycardia and left lower extremity edema COMPARISON: None TECHNIQUE: Spiral images were obtained through the chest following intravenous administration of 90 mL of Isovue-370. Images were reviewed using both narrow and wide window settings. Sagittal, coronal and 3 D volume-rendered reconstructions were performed and reviewed. This CT exam was performed using one or more following dose reduction techniques: Automated exposure control, adjustment of the mA and/or kV according to patient size, or use of iterative reconstruction technique. FINDINGS: Median sternotomy wires are present. The heart is borderline enlarged. There is no pericardial effusion. There is coronary artery disease. No aortic aneurysm or dissection is seen. There is adequate opacification of the pulmonary arteries. No emboli are identified. No pathologic lymphadenopathy is seen. Minor gynecomastia is seen. Degenerative changes are visualized at the spine. There is also lower cervical fusion. Minimal scarring or atelectasis is present. There is no consolidation, effusion or pneumothorax. Limited cuts through the upper abdomen show no contributory abnormality. CT/CT angio chest PE protocol IMPRESSION: NO CT EVIDENCE OF PULMONARY EMBOLISM. BORDERLINE CARDIOMEGALY. NO ACUTE INTRATHORACIC FINDINGS. Impression dictated by: Ludivina Burdcik M.D.08/25/2024 4:52 PM Dictation Location: [place] [address] Transcribed By: [facility] 08/25/24 165 Dictated By: Ludivina Burdick MD 08/25/24 164 Signed By: 08/25/241651 Normal [facility] Calcium [Mass/volume] in Ser um or PlasmaOrdered By: Jairo Ch on 08-25-2024 Calcium [Mass/Vol] Calcium [Mass/volume] in Serum or Plasma 8.6-10.3 [facility] Calcium [Mass/Vol] 9.0 mg/dL Normal 8.6-10.3 [facility] Comment on above: Order Comment: STAT BUN/CREAT FOR CT Result Comment: PERF ORMED BY: [facility] [address] [place] [address] PATHOLOGIST HL7 INTERFACE DEVELOPER KIM ROQUE M.D. Performed By: #### B MP ####[place] [address] [place] [address] [facility] Carbon dioxide, total [Moles /volume] in Serum or PlasmaOrdered By: Jairo Ch on 08-25-2024 CO2 [Moles/Vol] Carbon dioxide, total [Moles/volume] in Serum or Plasma 21.0-31.0 [facility] CO2 [Moles/Vol] 30.6 mmol/L Normal 21.0-31.0 [facility] Comment on above: Order Comment: STAT BUN/CREAT FOR CT Performed By: #### B MP ####[facility] [place] [address] [facility] Chloride [Moles/volume] in S bubba or PlasmaOrdered By: Jairo Ch on 08-25-2024 Chloride [Moles/Vol] Chloride [Moles/volume] in Serum or Plasma 98-107 [facility] Chloride [Moles/Vol] 101 mmol/L Normal 98-107 [facility] Comment on above: Order Comment: STAT BUN/CREAT FOR CT Performed By: #### B MP ####[facility] [place] [address] [facility] Creatinine [Mass/volume] in Serum or PlasmaOrdered By: Jairo Ch on 08-25-2024 Creatinine [Mass/Vol] Creatinine [Mass/volume] in Serum or Plasma 0.70-1.30 [facility] Creatinine [Mass/Vol] 1.15 mg/dL Normal 0.70-1.30 [facility] Comment on above: Order Comment: STAT BUN/CREAT FOR CT Performed By: #### B MP ####[place] [address] [place] [address] [facility] Glucose [Mass/volume] in Ser um or PlasmaOrdered By: Jairo Ch on 08-25-2024 Glucose [Mass/Vol] Glucose [Mass/volume] in Serum or Plasma High 70-100 [facility] Comment on above: ADA recommended refe rence rangeRandom Glucose Reference Range is dependent on time and content of last meal. Glucose of more than 200 mg/dL in a nonstressed, ambulatory subject supports the diagnosis of Diabetes Mellitus. Glucose [Mass/Vol] 174 mg/dL High 70-100 [facility] Comment on above: ADA recommended refe rence rangeRandom Glucose Reference Range is dependent on time and content of last meal. Glucose of more than 200 mg/dL in a nonstressed, ambulatory subject supports the diagnosis of Diabetes Mellitus. Order Comment: STAT BUN/CREAT FOR CT Result Comment: [place] Glucose Reference Range is dependent on time and content of last meal. Glucose of more than 200 mg/dL in a nonstressed, ambulatory subject supports the diagnosis of Diabetes Mellitus. ADA recommended reference range Performed By: #### B MP ####[facility] [id number] [place] [address] [facility] Natriuretic peptide B [Mass/ Vol]Ordered By: Jairo Ch on 08-25-2024 Natriuretic peptide B (Bld) [Mass/Vol] BNP ser/plas 5-100 [facility] No Panel InformationOrdered By: Jairo Ch on 08-25-2024 Estimated GFR (CKD-EPI) > 60.0 mL/Min [facility] Creatinine Clearance (Chem N/A [facility] Potassium [Moles/volume] in Serum or PlasmaOrdered By: Jairo Ch on 08-25-2024 Potassium [Moles/Vol] Potassium [Moles/volume] in Serum or Plasma 3.5-5.1 [facility] Potassium [Moles/Vol] 4.5 mmol/L Normal 3.5-5.1 [facility] Comment on above: Order Comment: STAT BUN/CREAT FOR CT Performed By: #### B MP ####[address] Serum or plasma anion gap de terminationOrdered By: Jairo Ch on 08-25-2024 Anion gap [Moles/Vol] Serum or plasma anion gap determination 6.0-15.0 [facility] Anion gap [Moles/Vol] 9.9 mmol/L Normal 6.0-15.0 [facility] Comment on above: Order Comment: STAT BUN/CREAT FOR CT Performed By: #### B MP ####[address] Sodium [Moles/volume] in Ser um or PlasmaOrdered By: Jairo Ch on 08-25-2024 Sodium [Moles/Vol] Sodium [Moles/volume] in Serum or Plasma 136-145 [facility] Sodium [Moles/Vol] 137 mmol/L Normal 136-145 [facility] Comment on above: Order Comment: STAT BUN/CREAT FOR CT Performed By: #### B MP ####[address] Urea nitrogen [Mass/volume] in Serum or PlasmaOrdered By: Jairo hC on 08-25-2024 Urea nitrogen [Mass/Vol] Urea nitrogen [Mass/volume] in Serum or Plasma 7-25 [facility] Urea nitrogen [Mass/Vol] 15 mg/dL Normal 7-25 [facility] Comment on above: Order Comment: STAT BUN/CREAT FOR CT Performed By: #### B ####[facility] [address] [place] [address] [facility] TRANSTHORACIC ECHO (TTE) COM RIOSTEon 08-11-2024 TRANSTHORACIC ECHO (TTE) COMPLETE [facility] [address] [facility], [address], [place] [address] TRANSTHORACIC ECHOCARDIOGRAM REPORT Patient Name: VÍCTOR Nowak SIMONE rUbina Physician: [id number] Maxx Clifford MD, [facility] Study Date: 08/11/2024 Ordering Provider: [id number] JAIRO CH MRN/PID: [id number] Fellow: Nurse: Date of /Age: 8 1950 / 73 years Security Clerk: Dionne English RDCS, RVT Gender Assigned at Additional Staff: : Height: 157.48 cm Admit Date: Weight: 98.43 kg Admission Status: BSA / BMI: 1.98 m2 / 39.69 Department Location: [facility] kg/m2 [facility] Blood Pressure: 116 /60 mmHg Study Type: TRANSTHORACIC ECHO (TTE) COMPLETE Diagnosis/ICD: Atherosclerotic heart disease of [place] coronary artery without angina pectoris-I25.10; Localized edema-R60.0; Other ill defined heart diseases-I51.89; Essential (primary) hypertension-I10 Indication: Hyperlipidemia, 2/6 Systolic Murmur, CABG, POC-Prostate Biopsy 09/03/2024, VASQUEZ, Asthma, Fatigue CPT Codes: Echo Complete w Full Doppler-[id number] Study Detail: The following Echo studies were performed: 2D, M-Mode, Doppler and color flow. PHYSICIAN INTERPRETATION: Left Ventricle: Left ventricular ejection fraction is normal, by visual estimate at 65-70%. There are no regional wall motion abnormalities. The left ventricular cavity size is normal. There is mild increased septal and normal posterior left ventricular wall thickness. Spectral Doppler shows a normal pattern of left ventricular diastolic filling. Left Atrium: The left atrial size is normal. Right Ventricle: The right ventricle is normal in size. There is normal right ventricular global systolic function. Right Atrium: The right atrial size is normal. Aortic Valve: The aortic valve is trileaflet. The aortic valve dimensionless index is 0.62. There is mild aortic valve regurgitation. The peak instantaneous gradient of the aortic valve is 14 mmHg. The mean gradient of the aortic valve is 7 mmHg. Mitral Valve: The mitral valve is normal in structure. The peak instantaneous gradient of the mitral valve is 5 mmHg. There is trace mitral valve regurgitation. Tricuspid Valve: The tricuspid valve is structurally normal. There is trace tricuspid regurgitation. Pulmonic Valve: The pulmonic valve is not well visualized. There is no indication of pulmonic valve regurgitation. Pericardium: No pericardial effusion noted. Aorta: The aortic root is normal. Systemic Veins: The inferior vena cava appears normal in size. CONCLUSIONS: 1. Left ventricular ejection fraction is normal, by visual estimate at 65-70%. 2. There is normal right ventricular global systolic function. 3. Mild aortic valve regurgitation. QUANTITATIVE DATA SUMMARY: 2D MEASUREMENTS: Normal Ranges: Ao Root s: 2.90 cm LAs: 3.77 cm (2.7-4.0cm) RVIDd: 2.75 cm (0.9-3.6cm) IVSd: 1.57 cm (0.6-1.1cm) LVPWd: 0.92 cm (0.6-1.1cm) LVIDd: 4.61 cm (3.9-5.9cm) LVIDs: 3.16 cm LV Mass Index: 109.5 g/m2 LVEDV Index: 23.96 ml/m2 LV % FS 31.5 % LEFT ATRIUM: Normal Ranges: LA Vol A4C: 99.9 ml (22+/-6mL/m2) LA Vol A2C: 77.1 ml LA Vol BP: 93.4 ml LA Vol Index A4C: 50.5ml/m2 LA Vol Index A2C: 39.0 ml/m2 LA Vol Index BP: 47.2 ml/m2 LA Vol A4C: 95.8 ml LA Vol A2C: 74.4 ml LA Vol Index BSA: 43.0 ml/m2 LV SYSTOLIC FUNCTION: Normal Ranges: EF-A4C View: 82 % (>=55%) EF-A2C View: 81 % EF-Biplane: 81 % EF-Visual: 68 % LV EF Reported: 68 % LV DIASTOLIC FUNCTION: Normal Ranges: MV Peak E: 0.85 m/s (0.7-1.2 m/s) MV Peak A: 0.93 m/s (0.42-0.7 m/s) E/A Ratio: 0.91 (1.0-2.2) MV e' 0.075 m/s (>8.0) MV lateral e' 0.08 m/s MV medial e' 0.07 m/s E/e' Ratio: 11.33 (<8.0) MITRAL VALVE: Normal Ranges: MV Vmax: 1.07 m/s (<=1.3m/s) MV peak P.6 mmHg (<5mmHg) MV mean P.6 mmHg (<48mmHg) MV VTI: 21.13 cm (10-13cm) MV DT: 198 msec (150-240msec) AORTIC VALVE: Normal Ranges: AoV Vmax: 1.87 m/s (<=1.7m/s) AoV Peak P.1 mmHg (<20mmHg) AoV Mean P.1 mmHg (1.7-11.5mmHg) LVOT Max Kenzie: 1.17 m/s (<=1.1m/s) AoV VTI: 43.42 cm (18-25cm) LVOT VTI: 26.74 cm LVOT Diameter: 2.00 cm (1.8-2.4cm) AoV Area, VTI: 1.94 cm2 (2.5-5.5cm2) AoV Area,Vmax: 1.96 cm2 (2.5-4.5cm2) AoV Dimensionless Index: 0.62 AORTIC INSUFFICIENCY: AI Vmax: 4.18 m/s AI Half-time: 683 msec AI Decel Time: 2355 msec AI Decel Rate: 178.26 cm/s2 RIGHT VENTRICLE: RV Basal 3.76 cm RV Mid 2.60 cm RV Major 5.7 cm RV s' 0.09 m/s TRICUSPID VALVE/RVSP: Normal Ranges: Peak TR Velocity: 2.21 m/s RV Syst Pressure: 23 mmHg (< 30mmHg) PULMONIC VALVE: Normal Ranges: RVOT Vmax: 0.81 m/s (0.6-0.9m/s) AORTA: Asc Ao Diam 3.10 cm [id number] Maxx Clifford MD, FACC Electronically signed on 08/11/2024 at 6:43:58 PM Final Normal [facility] Heart TransthoracicOrdere d By: Maxx Clifford on 08-11-2024 Aortic Valve Area by Continuity of Peak Velocity 1.96 cm2 [facility] Work Phone: [phone] Aortic Valve Area by Continuity of VTI 1.94 cm2 [facility] Work Phone: [phone] AV mn grad 7 mmHg [facility] Work Phone: [phone] AV pk grad 14 mmHg [facility] Work Phone: [phone] AV pk kenzie 1.87 m/s [facility] Work Phone: [phone] LA vol index A/L 47.2 ml/m2 [facility] Work Phone: [phone] LV A4C EF 81.5 [facility] Work Phone: [phone] LV Biplane EF 81 % [facility] Work Phone: [phone] LV EF 68 % [facility] Work Phone: [phone] LVIDd 4.61 cm [facility] Work Phone: [phone] LVOT diam 2 cm [facility] Work Phone: [phone] MV avg E/e' ratio 11.33 [facility] Work Phone: [phone] MV E/A ratio 0.91 [facility] Work Phone: [phone] RV free wall pk S' 8.74 cm/s [facility] Work Phone: [phone] RVSP 22.6 mmHg [facility] Work Phone: [phone] [facility] Work Phone: [phone] Heart Transthoracicon [address], [address], [place] [address] TRANSTHORACIC ECHOCARDIOGRAM REPORT Patient Name: VÍCTOR [place]rbina Physician: [id number] Maxx Clifford MD, [facility] Study Date: 08/11/2024 Ordering Provider: [id number] JAIRO CH MRN/PID: [id number] Fellow: Nurse: Date of /Age: 8 1950 / 73 years Security Clerk: Dionne English RDCS, RVT Gender Assigned at M Additional Staff: : Height: 157.48 cm Admit Date: Weight: 98.43 kg Admission Status: BSA / BMI: 1.98 m2 / 39.69 Department Location: [facility] kg/m2 [facility] Blood Pressure: 116 /60 mmHg Study Type: TRANSTHORACIC ECHO (TTE) COMPLETE Diagnosis/ICD: Atherosclerotic heart disease of [place] coronary artery without angina pectoris-I25.10; Localized edema-R60.0; Other ill defined heart diseases-I51.89; Essential (primary) hypertension-I10 Indication: Hyperlipidemia, 2/6 Systolic Murmur, CABG, POC-Prostate Biopsy 09/03/2024, VASQUEZ, Asthma, Fatigue CPT Codes: Echo Complete w Full Doppler-[id number] Study Detail: The following Echo studies were performed: 2D, M-Mode, Doppler and color flow. PHYSICIAN INTERPRETATION: Left Ventricle: Left ventricular ejection fraction is normal, by visual estimate at 65-70%. There are no regional wall motion abnormalities. The left ventricular cavity size is normal. There is mild increased septal and normal posterior left ventricular wall thickness. Spectral Doppler shows a normal pattern of left ventricular diastolic filling. Left Atrium: The left atrial size is normal. Right Ventricle: The right ventricle is normal in size. There is normal right ventricular global systolic function. Right Atrium: The right atrial size is normal. Aortic Valve: The aortic valve is trileaflet. The aortic valve dimensionless index is 0.62. There is mild aortic valve regurgitation. The peak instantaneous gradient of the aortic valve is 14 mmHg. The mean gradient of the aortic valve is 7 mmHg. Mitral Valve: The mitral valve is normal in structure. The peak instantaneous gradient of the mitral valve is 5 mmHg. There is trace mitral valve regurgitation. Tricuspid Valve: The tricuspid valve is structurally normal. There is trace tricuspid regurgitation. Pulmonic Valve: The pulmonic valve is not well visualized. There is no indication of pulmonic valve regurgitation. Pericardium: No pericardial effusion noted. Aorta: The aortic root is normal. Systemic Veins: The inferior vena cava appears normal in size. CONCLUSIONS: 1. Left ventricular ejection fraction is normal, by visual estimate at 65-70%. 2. There is normal right ventricular global systolic function. 3. Mild aortic valve regurgitation. QUANTITATIVE DATA SUMMARY: 2D MEASUREMENTS: Normal Ranges: Ao Root s: 2.90 cm LAs: 3.77 cm (2.7-4.0cm) RVIDd: 2.75 cm (0.9-3.6cm) IVSd: 1.57 cm (0.6-1.1cm) LVPWd: 0.92 cm (0.6-1.1cm) LVIDd: 4.61 cm (3.9-5.9cm) LVIDs: 3.16 cm LV Mass Index: 109.5 g/m2 LVEDV Index: 23.96 ml/m2 LV % FS 31.5 % LEFT ATRIUM: Normal Ranges: LA Vol A4C: 99.9 ml (22+/-6mL/m2) LA Vol A2C: 77.1 ml LA Vol BP: 93.4 ml LA Vol Index A4C: 50.5ml/m2 LA Vol Index A2C: 39.0 ml/m2 LA Vol Index BP: 47.2 ml/m2 LA Vol A4C: 95.8 ml LA Vol A2C: 74.4 ml LA Vol Index BSA: 43.0 ml/m2 LV SYSTOLIC FUNCTION: Normal Ranges: EF-A4C View: 82 % (>=55%) EF-A2C View: 81 % EF-Biplane: 81 % EF-Visual: 68 % LV EF Reported: 68 % LV DIASTOLIC FUNCTION: Normal Ranges: MV Peak E: 0.85 m/s (0.7-1.2 m/s) MV Peak A: 0.93 m/s (0.42-0.7 m/s) E/A Ratio: 0.91 (1.0-2.2) MV e' 0.075 m/s (>8.0) MV lateral e' 0.08 m/s MV medial e' 0.07 m/s E/e' Ratio: 11.33 (<8.0) MITRAL VALVE: Normal Ranges: MV Vmax: 1.07 m/s (<=1.3m/s) MV peak P.6 mmHg (<5mmHg) MV mean P.6 mmHg (<48mmHg) MV VTI: 21.13 cm (10-13cm) MV DT: 198 msec (150-240msec) AORTIC VALVE: Normal Ranges: AoV Vmax: 1.87 m/s (<=1.7m/s) AoV Peak PG: (more content not included)... Maxx Goyal MD - 08/11/[address], [address], [place] [address] TRANSTHORACIC ECHOCARDIOGRAM REPORT Patient Name: VÍCTOR Urbina Physician: [id number] Maxx Clifford MD, [facility] Study Date: 08/11/2024 Ordering Provider: [id number] JAIRO CH MRN/PID: [id number] Fellow: Nurse: Date of /Age: 8 1950 / 73 years Security Clerk: Dionne English [facility], [facility] Gender Assigned at Additional Staff: : Height: 157.48 cm Admit Date: Weight: 98.43 kg Admission Status: BSA / BMI: 1.98 m2 / 39.69 Department Location: [facility] kg/m2 [facility] Blood Pressure: 116 /60 mmHg Study Type: TRANSTHORACIC ECHO (TTE) COMPLETE Diagnosis/ICD: Atherosclerotic heart disease of [place] coronary artery without angina pectoris-I25.10; Localized edema-R60.0; Other ill defined heart diseases-I51.89; Essential (primary) hypertension-I10 Indication: Hyperlipidemia, 2/6 Systolic Murmur, CABG, POC-Prostate Biopsy 09/03/2024, VASQUEZ, Asthma, Fatigue CPT Codes: Echo Complete w Full Doppler-80410 Study Detail: The following Echo studies were performed: 2D, M-Mode, Doppler and color flow. PHYSICIAN INTERPRETATION: Left Ventricle: Left ventricular ejection fraction is normal, by visual estimate at 65-70%. There are no regional wall motion abnormalities. The left ventricular cavity size is normal. There is mild increased septal and normal posterior left ventricular wall thickness. Spectral Doppler shows a normal pattern of left ventricular diastolic filling. Left Atrium: The left atrial size is normal. Right Ventricle: The right ventricle is normal in size. There is normal right ventricular global systolic function. Right Atrium: The right atrial size is normal. Aortic Valve: The aortic valve is trileaflet. The aortic valve dimensionless index is 0.62. There is mild aortic valve regurgitation. The peak instantaneous gradient of the aortic valve is 14 mmHg. The mean gradient of the aortic valve is 7 mmHg. Mitral Valve: The mitral valve is normal in structure. The peak instantaneous gradient of the mitral valve is 5 mmHg. There is trace mitral valve regurgitation. Tricuspid Valve: The tricuspid valve is structurally normal. There is trace tricuspid regurgitation. Pulmonic Valve: The pulmonic valve is not well visualized. There is no indication of pulmonic valve regurgitation. Pericardium: No pericardial effusion noted. Aorta: The aortic root is normal. Systemic Veins: The inferior vena cava appears normal in size. CONCLUSIONS: 1. Left ventricular ejection fraction is normal, by visual estimate at 65-70%. 2. There is normal right ventricular global systolic function. 3. Mild aortic valve regurgitation. QUANTITATIVE DATA SUMMARY: 2D MEASUREMENTS: Normal Ranges: Ao Root s: 2.90 cm LAs: 3.77 cm (2.7-4.0cm) RVIDd: 2.75 cm (0.9-3.6cm) IVSd: 1.57 cm (0.6-1.1cm) LVPWd: 0.92 cm (0.6-1.1cm) LVIDd: 4.61 cm (3.9-5.9cm) LVIDs: 3.16 cm LV Mass Index: 109.5 g/m2 LVEDV Index: 23.96 ml/m2 LV % FS 31.5 % LEFT ATRIUM: Normal Ranges: LA Vol A4C: 99.9 ml (22+/-6mL/m2) LA Vol A2C: 77.1 ml LA Vol BP: 93.4 ml LA Vol Index A4C: 50.5ml/m2 LA Vol Index A2C: 39.0 ml/m2 LA Vol Index BP: 47.2 ml/m2 LA Vol A4C: 95.8 ml LA Vol A2C: 74.4 ml LA Vol Index BSA: 43.0 ml/m2 LV SYSTOLIC FUNCTION: Normal Ranges: EF-A4C View: 82 % (>=55%) EF-A2C View: 81 % EF-Biplane: 81 % EF-Visual: 68 % LV EF Reported: 68 % LV DIASTOLIC FUNCTION: Normal Ranges: MV Peak E: 0.85 m/s (0.7-1.2 m/s) MV Peak A: 0.93 m/s (0.42-0.7 m/s) E/A Ratio: 0.91 (1.0-2.2) MV e' 0.075 m/s (>8.0) MV lateral e' 0.08 m/s MV medial e' 0.07 m/s E/e' Ratio: 11.33 (<8.0) MITRAL VALVE: Normal Ranges: MV Vmax: 1.07 m/s (<=1.3m/s) MV peak P.6 mmHg (<5mmHg) MV mean P.6 mmHg (<48mmHg) MV VTI: 21.13 cm (10-13cm) MV DT: 198 msec (150-240msec) AORTIC VALVE: Normal Ranges: AoV Vmax: 1.87 m/s (<=1.7m/s) AoV Peak P.1 mmHg (<20mmHg) AoV Mean P.1 mmHg (1.7-11.5mmHg) LVOT Max Kenzie: 1.17 m/s (<=1.1m/s) AoV VTI: 43.42 cm (18-25cm) LVOT VTI: 26.74 cm LVOT Diameter: 2.00 cm (1.8-2.4cm) AoV Area, VTI: 1.94 cm2 (2.5-5.5cm2) AoV Area,Vmax: 1.96 cm2 (2.5-4.5cm2) AoV Dimensionless Index: 0.62 AORTIC INSUFFICIENCY: AI Vmax: 4.18 m/s AI Half-time: 683 msec AI Decel Time: 2355 msec AI Decel Rate: 178.26 cm/s2 RIGHT VENTRICLE: RV Basal 3.76 cm RV Mid 2.60 cm RV Major 5.7 cm RV s' 0.09 m/s TRICUSPID VALVE/RVSP: Normal Ranges: Peak TR Velocity: 2.21 m/s RV Syst Pressure: 23 mmHg (< 30mmHg) PULMONIC VALVE: Normal Ranges: RVOT Vmax: 0.81 m/s (0.6-0.9m/s) AORTA: Asc Ao Diam 3.10 cm [id number] Maxx Clifford MD, [facility] Electronically signed on 08/11/2024 at 6:43:58 PM Final [facility] Work Phone: BUNon 08-06-2024 Urea nitrogen [Mass/Vol] 21 mg/dL Normal 5-21 [facility] Comment on above: Performed By: #### 2 [id number] #### [facility] [address] [place] [address] CBC w/ Auto Diffon 5 Basophils/100 WBC (Bld) 0.8 % Normal 0.0-2.0 [facility] Comment on above: Performed By: #### 2 [id number] #### [facility] [address] [place] [address] Basophils/Leukocytes Auto (Bld) [Pure # fraction] 0.1 E9/L Normal 0.0-0.2 [facility] Comment on above: Performed By: #### 2 [id number] #### [facility] [address] [place] [address] Eosinophils (Bld) [#/Vol] 0.2 E9/L Normal 0.0-0.5 [facility] Comment on above: Performed By: #### 2 [id number] #### [facility] [address] [place] [address] Eosinophils/100 WBC (Bld) 2.8 % Normal 0.0-8.0 [facility] Comment on above: Performed By: #### 2 [id number] #### [facility] [address] [place] [address] Erythrocyte distribution width (RBC) [Ratio] 13.0 % Normal 10.9-14.2 [facility] Comment on above: Performed By: #### 2 [id number] #### [facility] [address] [place] [address] Hematocrit (Bld) [Volume fraction] 43.1 % Normal 37.7-49.0 [facility] Comment on above: Performed By: #### 2 [id number] #### [facility] [address] [place] [address] Hemoglobin (Bld) [Mass/Vol] 14.4 g/dL Normal 13.5-17.5 [facility] Comment on above: Performed By: #### 2 [id number] #### [facility] [address] [place] [address] Lymphocytes (Bld) [#/Vol] 2.1 E9/L Normal 1.0-4.0 [facility] Comment on above: Performed By: #### 2 [id number] #### [facility] [address] [place] [address] Lymphocytes/100 WBC (Bld) 28.1 % Normal 14.0-50.0 [facility] Comment on above: Performed By: #### 2 [id number] #### [facility] [address] [place] [address] MCH (RBC) [Entitic mass] 31.0 pg Normal 27.0-34.0 [facility] Comment on above: Performed By: #### 2 [id number] #### [facility] [address] [place] [address] MCHC (RBC) [Mass/Vol] 33.5 g/dL Normal 31.4-36.0 [facility] Comment on above: Performed By: #### 2 [id number] #### [facility] [address] [place] [address] MCV (RBC) [Entitic vol] 92.8 fL Normal 80.0-100.0 [facility] Comment on above: Performed By: #### 2 [id number] #### [facility] [address] [place] [address] Monocytes (Bld) [#/Vol] 0.7 E9/L Normal 0.2-1.0 [facility] Comment on above: Performed By: #### 2 [id number] #### [facility] [address] [place] [address] Neutrophils (Bld) [#/Vol] 4.5 E9/L Normal 2.0-7.5 [facility] Comment on above: Performed By: #### 2 [id number] #### [facility] [address] [place] [address] Neutrophils/100 WBC (Bld) 59.2 % Normal 36.0-75.0 [facility] Comment on above: Performed By: #### 2 [id number] #### [facility] [address] [place] [address] Platelet 229.0 E9/L Normal 150.0-500.0 [facility] Comment on above: Performed By: #### 2 [id number] #### [facility] [address] [place] [address] Platelet mean volume (Bld) [Entitic vol] 9.5 fL Normal 6.4-10.8 [facility] Comment on above: Performed By: #### 2 [id number] #### [facility] [address] [place] [address] RBC (Bld) [#/Vol] 4.7 E12/L Normal 4.3-5.9 [facility] Comment on above: Performed By: #### 2 [id number] #### [facility] [address] [place] [address] WBC corrected for nucl RBC Auto (Bld) [#/Vol] 7.5 E9/L Normal 4.0-11.0 [facility] Comment on above: Performed By: #### 2 [id number] #### [facility] [address] [place] [address] CHEMISTRYOrdered By: SYSTEM SYSTEM on 08-06-2024 Anion gap [Moles/Vol] 11 mmol/L Normal 6 - 16 mEq/L R emisol Chem Chloride [Moles/Vol] 101 mmol/L Normal 101 - 1 11 mmol/L [facility] CO2 [Moles/Vol] 28 mmol/L Normal 21 - 31 mmol/L [facility] Creatinine [Mass/Vol] 1.0 mg/dL Normal 0.5 - 1.3 mg/dL [facility] Chem eGFR 80 mL/min/1.73 m2 Normal >=59mL/min /1 .73 m2 [facility] Potassium [Moles/Vol] 3.9 mmol/L Normal 3.5 - 5.3 mmol/L [facility] Sodium [Moles/Vol] 136 mmol/L Normal 135 - 145 mmol/L [facility] Urea nitrogen [Mass/Vol] 21 mg/dL Normal 5 - 21 mg/d L [facility] COAGULATIONOrdered By: Shannan Benjamin on 08-06-2024 aPTT Coag (PPP) [Time] 32.5 s Normal 25.1 - 36.5 second(s) [facility] Auto Coag Comment on above: Interpretive Data: Sahra browning 15 days - 4 weeks 1 - 5 months 6 - 11 months 1 - 5 years 6 - 10 years 11 - 17 years PTT Mean: 35.4 (27.6-45.6) Mean: 33.5 (24.8-40.7) Mean: 32.4 (25.1-40.7) Mean: 31.6 (24.0-39.2) Mean: 31.6 (26.9-38.7) Mean: 31.0 (24.6-38.4) Pediatric Reference ranges were obtained from a study by Carlos Mendoza et al. prepared from 1437 samples obtained at 7 different centers using the same coagulation reagent and instrumentation as [facility]. Currently there are no coagulation studies available worldwide for children to 14 days, and no normal ranges. Heparin therapeutic range (represented by Anti-Factor Xa activity of 0.2 - 0.4 U/mL) corresponds to PTT of 56.6 - 109.0 sec. INR Coag (PPP) [Relative time] 1.04 {INR} Invalid Interpretation Code [facility] Auto Coag Comment on above: Interpretive Data: I NR results are specifically intended to assess patients stabilized on long-term Anticoagulation therapy suggested INR s Less Intensive Anticoagulation 2.0 3.0 Conventional Range 3.0 4.5 PT Coag (PPP) [Time] 11.6 s Normal 9.4 - 1 2.5 second(s) [facility] Auto Coag Comment on above: Interpretive Data: 1 5 days - 4 weeks 1 - 5 months 6 -11 months 1-5 years 6-10 years 11 -17 years Mean: 11.2 (9.5-12.6) Mean: 11.0 (9.7-12.8) Mean: 11.0 (9.8-13.0) Mean: 11.3 (9.9-13.4) Mean: 11.7 (10.0-14.6) Mean: 11.8 (10.0 - 14.1) Pediatric Reference ranges were obtained from a study by Carlos Mendoza et al. prepared from 1437 samples obtained at 7 different centers using the same coagulation reagent and instrumentation as [facility]. Currently there are no coagulation studies available worldwide for children to 14 days, and no normal ranges. Creatinineon 08-06-2024 Creatinine [Mass/Vol] 1.0 mg/dL Normal 0.5-1.3 [facility] Comment on above: Performed By: #### 2 [id number] #### [facility] [address] [place] [address] HEMATOLOGYOrdered By: SYSTEM SYSTEM on 08-06-2024 Basophils/100 WBC (Bld) 0.8 % Normal 0.0 - 2.0 % Rem[facility] Heme Basophils/Leukocytes Auto (Bld) [Pure # fraction] 0.1 E9/L Normal 0.0 - 0.2 E9/L [facility] Eosinophils (Bld) [#/Vol] 0.2 E9/L Normal 0.0 - 0.5 E9/L [facility] Eosinophils/100 WBC (Bld) 2.8 % Normal 0.0 - 8.0 % [facility] Erythrocyte distribution width (RBC) [Ratio] 13.0 % Normal 10.9 - 14.2 % [facility] Hematocrit (Bld) [Volume fraction] 43.1 % Normal 37.7 - 49.0 % [facility] Hemoglobin (Bld) [Mass/Vol] 14.4 g/dL Normal 13.5 - 17.5 gm/dL [facility] Lymphocytes (Bld) [#/Vol] 2.1 E9/L Normal 1.0 - 4.0 E9/L [facility] Lymphocytes/100 WBC (Bld) 28.1 % Normal 14.0 - 50.0 % [facility] MCH (RBC) [Entitic mass] 31.0 pg Normal 27. 0 - 34.0 pg [facility] MCHC (RBC) [Mass/Vol] 33.5 g/dL Normal 31.4 - 36.0 gm/dL [facility] MCV (RBC) [Entitic vol] 92.8 fL Normal 80.0 - 100.0 fL [facility] Monocytes (Bld) [#/Vol] 0.7 E9/L Normal 0.2 - 1.0 E9/L [facility] Monocytes/100 WBC (Bld) 9.1 % Normal 4.0 - 14.0 % [facility] Neutrophils (Bld) [#/Vol] 4.5 E9/L Normal 2.0 - 7.5 E9/L [facility] Neutrophils/100 WBC (Bld) 59.2 % Normal 36.0 - 75.0 % [facility] Platelet 229.0 E9/L Normal 150.0 - 500.0 E9/L [facility] Platelet mean volume (Bld) [Entitic vol] 9.5 fL Normal 6.4 - 10.8 fL [facility] RBC (Bld) [#/Vol] 4.7 E12/L Normal 4.3 - 5.9 E12/L [facility] WBC corrected for nucl RBC Auto (Bld) [#/Vol] 7.5 E9/L Normal 4.0 - 11.0 E9/L [facility] Heme Lyteson 08-06-2024 Anion gap [Moles/Vol] 11 mmol/L Normal 6-16 [facility] Comment on above: Performed By: #### 2 [id number] #### [facility] [address] [place] [address] Chloride [Moles/Vol] 101 mmol/L Normal 101-111 [facility] Comment on above: Performed By: #### 2 [id number] #### [facility] [address] [place] [address] CO2 [Moles/Vol] 28 mmol/L Normal 21-31 [facility] Comment on above: Performed By: #### 2 [id number] #### [facility] [address] [place] [address] Potassium [Moles/Vol] 3.9 mmol/L Normal 3.5-5.3 [facility] Comment on above: Performed By: #### 2 [id number] #### [facility] [address] [place] [address] Sodium [Moles/Vol] 136 mmol/L Normal 135-145 [facility] Comment on above: Performed By: #### 2 [id number] #### [facility] [address] [place] [address] PT & PTTon 08-06-2024 aPTT Coag (PPP) [Time] 32.5 second(s) Normal 25.1-36.5 [facility] Comment on above: Result Comment: Para meter 15 days - 4 weeks 1 - 5 months 6 - 11 months 1 - 5 years 6 - 10 years 11 - 17 years PTT Mean: 35.4 (27.6-45.6) Mean: 33.5 (24.8-40.7) Mean: 32.4 (25.1-40.7) Mean: 31.6 (24.0-39.2) Mean: 31.6 (26.9-38.7) Mean: 31.0 (24.6-38.4) Pediatric Reference ranges were obtained from a study by Carlos Mendoza et al. prepared from 1437 samples obtained at 7 different centers using the same coagulation reagent and instrumentation as [facility]. Currently there are no coagulation studies available worldwide for children to 14 days, and no normal ranges. Heparin therapeutic range (represented by Anti-Factor Xa activity of 0.2 - 0.4 U/mL) corresponds to PTT of 56.6 - 109.0 sec. Performed By: #### 1 [id number] #### [facility] [address] [place] [address] INR Coag (PPP) [Relative time] 1.04 {INR} Invalid Interpretation Code [facility] Comment on above: Result Comment: INR results are specifically intended to assess patients stabilized on long-term Anticoagulation therapy suggested INR???s ???Less Intensive Anticoagulation??? 2.0 ??? 3.0 Conventional Range 3.0 ??? 4.5 Performed By: #### 1 [id number] #### [facility] [address] [place] [address] PT Coag (PPP) [Time] 11.6 second(s) Normal 9.4-12.5 [facility] Comment on above: Result Comment: 15 d ays - 4 weeks 1 - 5 months 6 -11 months 1-5 years 6-10 years 11 -17 years Mean: 11.2 (9.5-12.6) Mean: 11.0 (9.7-12.8) Mean: 11.0 (9.8-13.0) Mean: 11.3 (9.9-13.4) Mean: 11.7 (10.0-14.6) Mean: 11.8 (10.0 - 14.1) Pediatric Reference ranges were obtained from a study by Carlos Mendoza et al. prepared from 1437 samples obtained at 7 different centers using the same coagulation reagent and instrumentation as [facility]. Currently there are no coagulation studies available worldwide for children to 14 days, and no normal ranges. Performed By: #### 1 [id number] #### [facility] [address] [place] [address] URINALYSISOrdered By: SYSTEM SYSTEM on 08-06-2024 Bilirubin Ql (U) Negative Normal Negativemg/ d L [facility]A Auto SS Clarity (U) Clear (08/06/24 2:45 PM) Normal Clear [facility] UA Auto SS Color (U) Colorless 1 *ABN* (08/06/24 2:45 PM) Invalid Interpretation Code Yellow [facility] UA Auto SS Comment on above: Interpretive Data: M icroscopic readings are only performed on those samples that meet specific criteria set forth by [facility]. Glucose Ql (U) Negative Normal Negativemg/d L [facility] Auto SS Hemoglobin Auto test strip (U) [Mass/Vol] Negative Normal Negativemg/d L [facility] UA Auto SS Ketones Auto test strip Ql (U) Negative Normal Negativemg/d L [facility] UA Auto SS Leukocyte esterase Auto test strip Ql (U) Negative Normal NegativeLeu/ uL [facility] UA Auto SS Nitrite Auto test strip Ql (U) Negative Normal Negativemg/d L [facility] UA Auto SS pH (U) 5.5 *NA* (08/06/24 2:45 PM) Invalid Interpretation Code 5.0 - 9.0 [facility] UA Auto SS Protein Ql (U) Negative Normal Negativemg/d L [facility] UA Auto SS Specific gravity (U) [Rel density] 1.006 *NA* (08/06/24 2:45 PM) Invalid Interpretation Code 1.005 - 1.030 [facility] UA Auto SS Urobilinogen (U) [Mass/Vol] Negative Normal Negativemg/d L [facility] UA Auto SS URINALYSISOrdered By: Santosh Rob on 08-06-2024 UA Spec Desc Clean Catch (08/06/24 2:45 PM) Normal [facility] UA Auto SS Urinalysis with Microon Bilirubin Ql (U) Negative Normal Negative [facility] Comment on above: Performed By: #### 4 [id number] #### [facility] [address] [place] [address] Clarity (U) Clear Normal Clear [facility] Comment on above: Performed By: #### 4 [id number] #### [facility] [address] [place] [address] Color (U) Colorless Abnormal Yellow [facility] Comment on above: Result Comment: Micr oscopic readings are only performed on those samples that meet specific criteria set forth by [facility]. Performed By: #### 4 [id number] #### [facility] [address] [place] [address] Glucose Ql (U) Negative Normal Negative [facility] Comment on above: Performed By: #### 4 [id number] #### [facility] [address] [place] [address] Hemoglobin Auto test strip (U) [Mass/Vol] Negative Normal Negative [facility] Comment on above: Performed By: #### 4 [id number] #### [facility] [address] [place] [address] Ketones Auto test strip Ql (U) Negative Normal Negative [facility] Comment on above: Performed By: #### 4 [id number] #### [facility] [address] [place] [address] Leukocyte esterase Auto test strip Ql (U) Negative Normal Negative [facility] Comment on above: Performed By: #### 4 [id number] #### [facility] [address] [place] [address] Nitrite Auto test strip Ql (U) Negative Normal Negative [facility] Comment on above: Performed By: #### 4 [id number] #### [facility] [address] [place] [address] pH (U) 5.5 [pH] Invalid Interpretation Code 5.0-9.0 [facility] Comment on above: Performed By: #### 4 [id number] #### [facility] [address] [place] [address] Protein Ql (U) Negative Normal Negative [facility] Comment on above: Performed By: #### 4 [id number] #### [facility] [address] [place] [address] Specific gravity (U) [Rel density] 1.006 Invalid Interpretation Code 1.005-1.030 [facility] Comment on above: Performed By: #### 4 [id number] #### [facility] [address] [place] [address] Urobilinogen (U) [Mass/Vol] Negative Normal Negative [facility] Comment on above: Performed By: #### 4 [id number] #### [facility] [address] [place] [address] Type of Urine collection method Clean Catch Normal [facility] Comment on above: Performed By: #### 4 [id number] #### [facility] [address] [place] [address] eGFRon 08-06-2024 eGFR 80 mL/min/1.73 m2 Normal >=59 [facility] Comment on above: Performed By: #### 1 [id number] #### [facility] [address] [place] [address] NM Heart Perfusion W stress and W radionuclide Marilee 08-05-2024 Normal Lexiscan Myoview cardiac perfusion stress test. No evidence of ischemia or myocardial infarction by perfusion imaging. Normal left ventricular systolic function, ejection fraction 70%. No change when compared to previous study. Signed by: Calvin Manrique 08/05/2024 2:44 PM Dictation workstation: [id number] Interpreted By: Calvin Manrique and Giannuzzi Michael STUDY: MYOCARDIAL PERFUSION STRESS TEST WITH LEXISCAN Performing facility: [facility], [address] [place] [address], [address], [place], [place] [address] Provider: Jairo Ch RN, SALES APPLICATIONS ENGINEER PCP: Dr. Carrasco Supervising provider: Helen Dill DO, [facility] INDICATION: Signs/Symptoms:RUIZ, fatigue. ,I25.10 Atherosclerotic heart disease of [place] coronary artery without angina pectoris,I10 Essential (primary) hypertension HISTORY: Gender: M; Age: 73 y/o ; Height: HT 157.5 cm cm; Weight: WT 98.431 kg kg. CAD; High Cholesterol; Previous PA; Family HX CAD; HTN; Chest Pain; SOB; COPD; Fatigue; Quit smoking 4 years ago. Cardiac catheterization on 2007, 2013, 2017, 2018, 2019. PTCA on 2007. CABG on 2004. COMPARISON: Previous nuclear testing completed at [facility]. ACCESSION NUMBER(S): [id number] ORDERING CLINICIAN: JAIRO CH TECHNIQUE: ONE DAY protocol. Stress injection: Date:08-05-24, 33.0 mCi of Myoview IV 20 seconds after rapid injection of Lexiscan. Rest injection: Date: 08-05-24, 11.2 mCi of Myoview IV at rest. The patient had a rapid injection of 0.4 mg of Lexiscan IV over 10 seconds. Imaging was performed by gated tomographic technique. Reason for Lexiscan: Leg pain, SOB STRESS TEST DATA: Resting heart rate was 74 BPM. Resting blood pressure was 130/64 mmHg. Peak blood pressure was 108/60 mmHg. Peak heart rate was 87 BPM. Aminophylline given 50mg IV. TEST TERMINATED DUE TO: Protocol completed FINDINGS: [...] regional wall motion abnormalities. Ejection fraction was 70%. TID is 0.95 and is normal. There were no evidence of attenuation artifact. [facility] Calvin Manrique MD - 08/05/2024 Interpreted By: Calvin Manrique and Giannuzzi Michael STUDY: MYOCARDIAL PERFUSION STRESS TEST WITH LEXISCAN Performing facility: [facility], [address] [place] [address], [address], [place] [address] [facility] Provider: Jairo Ch RN, SALES APPLICATIONS ENGINEER PCP: Dr. Carrasco Supervising provider: Helen Dill DO, [facility] INDICATION: Signs/Symptoms:RUIZ, fatigue. ,I25.10 Atherosclerotic heart disease of [place] coronary artery without angina pectoris,I10 Essential (primary) hypertension HISTORY: Gender: M; Age: 73 y/o ; Height: HT 157.5 cm cm; Weight: WT 98.431 kg kg. CAD; High Cholesterol; Previous PA; Family HX CAD; HTN; Chest Pain; SOB; COPD; Fatigue; Quit smoking 4 years ago. Cardiac catheterization on 2007, 2013, 2017, 2018, 2019. PTCA on 2007. CABG on 2004. COMPARISON: Previous nuclear testing completed at [facility]. ACCESSION NUMBER(S): [id number] ORDERING CLINICIAN: JAIRO CH TECHNIQUE: ONE DAY protocol. Stress injection: Date:08-05-24, 33.0 mCi of Myoview IV 20 seconds after rapid injection of Lexiscan. Rest injection: Date: 08-05-24, 11.2 mCi of Myoview IV at rest. The patient had a rapid injection of 0.4 mg of Lexiscan IV over 10 seconds. Imaging was performed by gated tomographic technique. Reason for Lexiscan: Leg pain, SOB STRESS TEST DATA: Resting heart rate was 74 BPM. Resting blood pressure was 130/64 mmHg. Peak blood pressure was 108/60 mmHg. Peak heart rate was 87 BPM. Aminophylline given 50mg IV. TEST TERMINATED DUE TO: Protocol completed FINDINGS: [...] regional wall motion abnormalities. Ejection fraction was 70%. TID is 0.95 and is normal. There were no evidence of attenuation artifact. IMPRESSION: Normal Lexiscan Myoview cardiac perfusion stress test. No evidence of ischemia or myocardial infarction by perfusion imaging. Normal left ventricular systolic function, ejection fraction 70%. No change when compared to previous study. Signed by: Calvin Manrique 08/05/2024 2:44 PM Dictation workstation: [id number] [facility] Work Phone: Radiology Study observation (narrative) [facility] Work Phone: NM Heart Perfusion W stress and W radionuclide IVOrdered By: Calvin Manrique on 08-05-2024 [facility] Work Phone: NUCLEAR STRESS TESTon 2024 NUCLEAR STRESS TEST Interpreted By: Calvin Manrique and Giannuzzi Michael STUDY: MYOCARDIAL PERFUSION STRESS TEST WITH LEXISCAN Performing facility: [facility], [address] [place] [address], [address] Provider: Jairo Ch RN, SALES APPLICATIONS ENGINEER PCP: Dr. Carrasco Supervising provider: Helen iDll DO, [facility] INDICATION: Signs/Symptoms:RUIZ, fatigue. ,I25.10 Atherosclerotic heart disease of [place] coronary artery without angina pectoris,I10 Essential (primary) hypertension HISTORY: Gender: M; Age: 73 y/o ; Height: HT 157.5 cm cm; Weight: WT 98.431 kg kg. CAD; High Cholesterol; Previous PA; Family HX CAD; HTN; Chest Pain; SOB; COPD; Fatigue; Quit smoking 4 years ago. Cardiac catheterization on 2007, 2013, 2017, 2018, 2019. PTCA on 2007. CABG on 2004. COMPARISON: Previous nuclear testing completed at [facility]. ACCESSION NUMBER(S): [id number] ORDERING CLINICIAN: JAIRO CH TECHNIQUE: ONE DAY protocol. Stress injection: Date:08-05-24, 33.0 mCi of Myoview IV 20 seconds after rapid injection of Lexiscan. Rest injection: Date: 08-05-24, 11.2 mCi of Myoview IV at rest. The patient had a rapid injection of 0.4 mg of Lexiscan IV over 10 seconds. Imaging was performed by gated tomographic technique. Reason for Lexiscan: Leg pain, SOB STRESS TEST DATA: Resting heart rate was 74 BPM. Resting blood pressure was 130/64 mmHg. Peak blood pressure was 108/60 mmHg. Peak heart rate was 87 BPM. Aminophylline given 50mg IV. TEST TERMINATED DUE TO: Protocol completed FINDINGS: [...] regional wall motion abnormalities. Ejection fraction was 70%. TID is 0.95 and is normal. There were no evidence of attenuation artifact. IMPRESSION: Normal Lexiscan Myoview cardiac perfusion stress test. No evidence of ischemia or myocardial infarction by perfusion imaging. Normal left ventricular systolic function, ejection fraction 70%. No change when compared to previous study. Signed by: Calvin Manrique 08/05/2024 2:44 PM Dictation workstation: [id number] [facility] Ambulatory Visit Summaryon 0 07-16-2024 Ambulatory Visit Summary Ambulatory Visi t Summary VÍCTOR NICHOLS SR :1950 Visit Date:07/16/2024 Ambulatory Visit Instructions Your Diagnosis Elevated PSA BPH with urinary obstruction Antiplatelet or antithrombotic long-term use Your Care Team Attending Physician - DARRON FRANCIS, RUDI Primary Care Physician - LUIS ALBERTO CARRASCO MD This Is Your Medications List tamsulosin (tamsulosin 0.4 mg Cap) Contact prescribing physician if questions or concerns albuterol (Albuterol (Eqv-Ventolin HFA) 90 mcg/inh inhalation aerosol) aspirin (aspirin 81 mg oral capsule) atorvastatin (atorvastatin 40 mg Tab) clopidogrel (clopidogrel 75 mg Tab) docusate (docusate sodium 100 mg Cap) furosemide (furosemide 20 mg Tab) hydrochlorothiazide- lisinopril (hydrochlorothiazide -lisinopril 12.5 mg-10 mg Tab) isosorbide mononitrate (isosorbide mononitrate 120 mg ER Tab) latanoprost ophthalmic (latanoprost Opth 0.005% Ritu) metoprolol (metoprolol succinate 25 mg ER Tab) nitroglycerin omeprazole (omeprazole 20 mg Cap-DR) potassium chloride (Potassium Chloride (Wzf-Daqw-Ocs 10) 10 mEq oral tablet, extended release) Procedures Performed Discission of secondary membranous cataract (opacified posterior lens capsule and/or anterior hyaloid); laser surgery (eg, YAG laser) (1 or more stages) (10/09/2021), Appendectomy, Arthroscopic procedure of knee joint, Cardiac catheterization, Carpal tunnel release, Coronary artery bypass graft, History of tonsillectomy, Percutaneous transluminal coronary angioplasty, Procedure on neck. Discharge Vitals Height 164 cm Height 65 in Weight 102.05 kg Weight 224.981 lb BMI 37.94 What to do next You Need to Schedule the Following Appointments Follow Up with DARRON FRANCIS, JUDI GRIJALVA When: Where: Medications What How Much When Why Instructions New tamsulosin (tamsulosin 0.4 mg Cap) 1 Capsules By Mouth Every day BPH with urinary obstruction Refills: 11 Pickup at [facility]/pharmacy #[id number] Unchanged albuterol (Albuterol (Eqv-Ventolin HFA) 90 mcg/ inh inhalation aerosol) 2 Inhalation Contact prescribing physician if questions or concerns Unchanged aspirin (aspirin 81 mg oral capsule) 1 Capsules By Mouth Contact prescribing physician if questions or concerns Unchanged atorvastatin (atorvastatin 40 mg Tab) 1 Tablets Contact prescribing physician if questions or concerns Unchanged clopidogrel (clopidogrel 75 mg Tab) 1 Tablets Contact prescribing physician if questions or concerns Unchanged docusate (docusate sodium 100 mg Cap) 1 Capsules By Mouth Every day as needed for for constipation Contact prescribing physician if questions or concerns Unchanged furosemide (furosemide 20 mg Tab) 1 Tablets Contact prescribing physician if questions or concerns Unchanged hydrochlorothiazide- lisinopril (hydrochlorothiazide -lisinopril 12.5 mg-10 mg Tab) 1 Tablets Contact prescribing physician if questions or concerns Unchanged isosorbide mononitrate (isosorbide mononitrate 120 mg ER Tab) 1 Tablets Contact prescribing physician if questions or concerns Unchanged latanoprost ophthalmic (latanoprost Opth 0.005% Ritu) 1 Drops Contact prescribing physician if questions or concerns Unchanged metoprolol (metoprolol succinate 25 mg ER Tab) 1 Tablets By Mouth Every day Contact prescribing physician if questions or concerns Unchanged nitroglycerin 0.4 Milligram Contact prescribing physician if questions or concerns Unchanged omeprazole (omeprazole 20 mg Cap-DR) 1 Capsules Contact prescribing physician if questions or concerns Unchanged potassium chloride (Potassium Chloride (Bst-Ycsy-Avs 10) 10 mEq oral tablet, extended release) 1 Tablets Contact prescribing physician if questions or concerns Pharmacy Information [facility]/pharmacy #[id number]: [address], [place] [phone] Allergies atorvastatin (Hives, Unknown) fentanyl topical (Itching, Unknown, Eruption, Rash) morphine (Unknown, Itching, Itching) ranolazine (Unknown, Hives) venlafaxine (Unknown, Comment:tired, no appetite) vilanterol (Dizziness) Problems Ongoing - Any problem that you are currently receiving treatment for. Antiplatelet or antithrombotic long-term use Arteriosclerotic vascular disease Asthma BPH with urinary obstruction CAD (coronary artery disease) Cardiac enzyme or marker above reference range Carpal tunnel syndrome Chronic obstructive pulmonary disease Elevated PSA Esophageal reflux Essential hypertension Ex-smoker Hyperglycemia due to type 2 diabetes mellitus Hyperlipidemia VASQUEZ (obstructive sleep apnea) Osteoarthritis of left knee joint Paresthesia Subsequent non-ST segment elevation myocardial infarction. Suspected bilateral glaucoma Historical - Any problem that you are no longer receiving treatment for. Tic disorder Patient Survey You may receive a survey via text or e-mail asking about your office visit. Please share your experience with us by completing (more content not included)... Normal [facility] Urology Office/Clinic Noteon 07-16-2024 Urology Office/Clinic Note Urology Office/Clinic Note Chief Complaint review MRI HPI Staff 73 year old male here for F/U to review MRI done 07/01/24 Previous DX: elevated PSA Pt. did not give a urine sample today IPSS 9 occasionally will have pain with urination, no blood in the urine History of Present Illness Tests reviewed: reviewed MRI. I have reviewed the previous health record information and history for this patient from Justine Piedra PA-C I have reviewed and verified the staff HPI to be accurate for this encounter. There have been no associated fever, chills, flank pain, or blood in the urine. Denies any urinary infections since last encounter. Review of Systems PHQ Score Initial Depression Screen Score: 0 SCORE ROS - Provider Constitutional: denies weight loss, denies hot flashes. Eyes: denies eye problems. Gastrointestinal: denies nausea, denies vomiting. Cardiovascular: denies chest pain or angina. Integumentary: no dryness Musculoskeletal: denies musculoskeletal symptoms. ENMT: denies otolaryngeal symptoms. Respiratory: no shortness of breath. Heme/Lymph: denies easy bleeding tendency, denies easy bruising tendency. Psychiatric: no confusion, no anxiety. Genitourinary: See HPI. Physical Exam Vitals & Measurements HT: 65 in HT: 164 cm WT: 102.05 kg WT: 224.981 lb BMI: 37.94 General Appearance: alert, no distress, well nourished, well developed male. Assessment/Plan 73 yo male initially referred by Dr. Luis Alberto Carrasco for elevated PSA. Last seen by Candy Piedra PA-C 05/19/24. Former smoker. S/p appendectomy 1971. BRADLEY 2 (13) - extensive cardiac history. Portions of this record may have been created with voice recognition artificial intelligence software, specifically [employer] and or [employer]. Substitutions may have occurred due to the inherent limitations of voice recognition and artificial intelligence software. 1. Elevated PSA (R97.20: Elevated prostate specific antigen [PSA]) PSA 08/02/20 - 2.550 12/26/23 - 5.33 04/10/24 - 4.97 No family history of prostate cancer. KAYLENE 05/19/24 by Candy Piedra ~benign. MRI of prostate 07/01/24 [facility] [place] prostate volume 25 mL. 11 x 7 mm lesion involving the posterior aspect of the left peripheral zone at the level of the mid gland extending into the apex. No gross extracapsular extension is seen. PI-RADS 4. Proceeding with MR guided fusion biopsy is strongly recommended given abnormal MRI. Pt states he has an appointment with his extrusion die repairer in September, will wait to schedule biopsy after pt meets with extrusion die repairer. -Will schedule MR guided fusion prostate biopsy, transrectal approach. Will need ATB prior to biopsy. The procedural risks, benefits, details, and treatment alternatives have been discussed with the patient. These include minimal to severe bleeding, infection, blood in the semen, inability to urinate, and severe infection requiring hospitalization and IV antibiotics, among others. Full informed consent has been obtained. Will order Local anesthesia. 2. BPH with urinary obstruction (N40.1: Benign prostatic hyperplasia with lower urinary tract symptoms) IPSS 9 (9) C/o urgency. Nocturia due to water pill. Discussed starting an alpha-daya. Counseled pt on possible SEs. Pt opts to start new med. -Start Flomax 0.4mg qd, monitor for lightheadedness or dizziness 3. Antiplatelet or antithrombotic long-term use (Z79.02: penitentiary (current) use of antithrombotics/anti platelets) On Plavix. Hx of CABG 2004 and PA x2, 2006 and 10/2019. Elevated risk for periop complications. Plavix need held prior to biopsy. Will obtain cardiac clearance. PIRADS 4 lesion on MRI Prostate. Will proceed with MRI Fusion prostate biopsy. He will need medical and cardiac clearance before surgery. We will plan on doing this prostate biopsy after he sees his extrusion die repairer. Follow-up With When Contact Information DARRON FRANCIS, RUDI, KEVENL Additional Instructions: Schedule MR guided fusion prostate biopsy Patient Education Transrectal Ultrasound-Guided Prostate Biopsy, Care After Nicol Alfaro, personally scribed for Dr. Bridges on 07/16/2024 13:21:22. . Documentation recorded by the scribeNicol, accurately reflects the services(s) I performed and decisions made by me. Authenticated by Dr. Pinon on 07/16/2024 13:46:39. Problem List/Past Medical History Ongoing Antiplatelet or antithrombotic long-term use Arteriosclerotic vascular disease Asthma BPH with urinary obstruction CAD (coronary artery disease) Cardiac enzyme or marker above reference range Carpal tunnel syndrome Chronic obstructive pulmonary disease Elevated PSA Esophageal reflux Essential hypertension Ex-smoker Hyperglycemia due to type 2 diabetes mellitus Hyperlipidemia VASQUEZ (obstructive sleep apnea) Osteoarthritis of left knee joint Paresthesia Subsequent non-ST (more content not included)... Normal [facility] Comment on above: Result Comment: Elec tronically Signed By: RUDI PINON MD\.br\Date and Time Signed: 07/16/24 13:52 EDT\.br\Electronically Co-Signed By: Nicol Rodarte\.br\Date and Time Co-Signed: 07/16/24 13:21 EDT Creatinine (Bld) [Mass/Vol]O rdered By: Justine Piedra on 07-01-2024 Creatinine [Mass/Vol] Whole blood creatinine measurement 0.6-1.3 [facility] Comment on above: ER/ESD physician is notified/shown all ISTAT results.Critical values may be confirmed by laboratory testing ifdeemed necessary by ER attending doctor. ISTAT XRay CREon 07-01-2024 Creatinine [Mass/Vol] 1.2 mg/dL Normal 0.6-1.3 [facility] Comment on above: Result Comment: ER/E SD physician is notified/shown all ISTAT results. Critical values may be confirmed by laboratory testing if deemed necessary by ER attending doctor. Performed By: #### I SCRE ####[address] ISTAT GFR >60.0 Normal [facility] Comment on above: Result Comment: PERF ORMED BY: [place] [id number] PATHOLOGIST [employer] INTERFACE DEVELOPER KIM ROQUE M.D. Performed By: #### I SCRE ####[facility] [id number] MR prostate wo/w conon 07-01 MR prostate wo/w con [facility] [address] MRI Report Signed Patient: Víctor Nichols Sr MR#: [id number] : 1950 Acct:[id number] Age/Sex: 73 / M ADM Date: 07/01/24 Loc: MR Room: Type: [facility] Attending Dr: Justine Piedra PA-C Copies to: Justine Piedra PA-C Ordering Provider: Justine Piedra PA-C Date of Service: 07/01/24 MR/MR prostate wo/w con: R97.20 EXAMINATION: MR prostate wo/w con HISTORY: Elevated PSA. COMPARISON: NONE TECHNIQUE: Multiparametric imaging of the prostate gland was performed with IV contrast. FINDINGS: Prostate Dimensions: 4.3 x 3.0 x 3.8 cm. Prostate Volume: 25 mL Peripheral Zone: Heterogenous inT2 signal suggestive of prior prostatitis. Focal area of T2 hypointensity is seen involving the posterior aspect of the left peripheral zone at the level of the mid gland extending into the apex measuring 11 x 7 mm with associated restricted diffusion and low ADC value. No gross extracapsular extension is seen. Please see series 4 image 16, series 650 image 15 and series 600 image 15. Central/Transitional Zone: BPH changes. Seminal Vesicles: Decompressed without focal abnormality. Neurovascular bundles: Unremarkable. Lymphadenopathy: No evidence of lymphadenopathy. Bladder: No focal lesion. Bowel: The visualized bowel is without acute abnormality. Peritoneal Cavity: No free fluid. Bones: No suspicious bony lesion. MR/MR prostate wo/w con IMPRESSION: Focal area of T2 hypointensity is seen involving the posterior aspect of the left peripheral zone at the level of the mid gland extending into the apex measuring 11 x 7 mm with associated restricted diffusion and low ADC value. No gross extracapsular extension is seen. Please see series 4 image 16, series 650 image 15 and series 600 image 15. PI-RADS 4. Targeting of this area on biopsy is recommended. Impression dictated by: Stef Walker Jr., D.O.07/01/2024 10:47 AM Dictation Location: [place] [address] Transcribed By: [facility] 07/01/24 1047 Dictated By: Stef Walker Jr, DO 07/01/24 104 Signed By: 07/01/24 104 Normal [facility] Magnetic resonance imaging r eportOrdered By: Stef Walker on 07-01-2024 Study report [place] [address] MRI Report Signed Patient: Víctor Nichols MR#: [id number] : 1950 Acct:[id number] Age/Sex: 73 / M ADM Date: 5 Loc: MR Room: Type: [facility] Attending Dr: Justine Piedra PA-C Copies to: Justine Piedra PA-C~ Ordering Provider: Justine Piedra PA-C Date of Service: 07/01/24 MR/MR prostate wo/w con: R97.20 EXAMINATION: MR prostate wo/w con HISTORY: Elevated PSA. COMPARISON: NONE TECHNIQUE: Multiparametric imaging of the prostate gland was performed with IV contrast. FINDINGS: Prostate Dimensions: 4.3 x 3.0 x 3.8 cm. Prostate Volume: 25 mL Peripheral Zone: Heterogenous inT2 signal suggestive of prior prostatitis. Focal area of T2 hypointensity is seen involving the posterior aspect of the left peripheral zone at the level of the mid gland extending into the apex measuring 11 x 7 mm with associated restricted diffusion and low ADC value. No gross extracapsular extension is seen. Please see series 4 image 16, series 650image 15 and series 600 image 15. Central/Transitional Zone: BPH changes. Seminal Vesicles: Decompressed without focal abnormality. Neurovascular bundles: Unremarkable. Lymphadenopathy: No evidence of lymphadenopathy. Bladder: No focal lesion. Bowel: The visualized bowel is without acute abnormality. Peritoneal Cavity: No free fluid. Bones: No suspicious bony lesion. MR/MR prostate wo/w con IMPRESSION: Focal area of T2 hypointensity is seen involving the posterior aspect of the left peripheral zone at the level of the mid gland extending into the apex measuring 11 x 7 mm with associated restricted diffusion and low ADC value. No gross extracapsular extension is seen. Please see series 4 image 16, series 650image 15 and series 600 image 15. PI-RADS 4. Targeting of this area on biopsy is recommended. Impression dictated by: Stef Walker Jr., D.OJessica07/01/2024 10:47 AM Dictation Location: [facility] Transcribed By: PONCHO 07/01/24 1047 Dictated By: Stef Walker Jr, DO 07/01/24 1042 Signed By: 07/01/24 1047 [facility] No Panel InformationOrdered By: Justine Piedra on 07-01-2024 Bedside Estimated GFR (eGFR) > 60.0 [facility] Estimated glomerular filtrat ion rate (GFR) non- Americanon 05-19-2024 GFR/1.73 sq M.predicted among non-blacks MDRD (S/P/Bld) [Vol rate/Area] Estimated glomerular filtration rate (GFR) non- Low >=60 mL/min/1.73m 2 [facility] Laboratory - Chemistry and C hemistry - challengeon 05-19-2024 Calcium [Mass/Vol] 9.0 mg/dL 8.5-10.1 [facility] Chloride [Moles/Vol] 102 mmol/L 98-107 [facility] CO2 [Moles/Vol] 32.0 mmol/L 21.0-32.0 [facility] Creatinine [Mass/Vol] 1.34 mg/dL High 0.70-1.30 [facility] GFR/1.73 sq M.predicted MDRD (S/P/Bld) [Vol rate/Area] mL/min/{1.73_m2} >=60 mL/min/1.73m 2 [facility] Glucose [Mass/Vol] 158 mg/dL High 74-106 [facility] Potassium [Moles/Vol] 4.5 mmol/L 3.5-5.1 [facility] Sodium [Moles/Vol] 137 mmol/L 136-145 [facility] Urea nitrogen [Mass/Vol] 23.0 mg/dL High 7.0-18.0 [facility] Urea nitrogen/Creatinine [Mass ratio] 17.2 mg/mg [facility] Serum or plasma anion gap de terminationon 05-19-2024 Anion gap [Moles/Vol] Serum or plasma anion gap determination [facility] No Panel Informationon 04-10 Prostate Specific Antigen Total 4.97 ng/mL High <=4.00 [facility] XR Knee - left 1 or 2 Viewso n 01-15-2024 Imaging Result: AP and lateral views of left knee showed severe varus deformity with [id number] articulation to the medial joint line, flattening [...] joint disease left knee with varus deformity [facility] Radiology Study observation (narrative) [facility] Basophils Auto (Bld) [#/Vol] on 12-26-2023 Basophils (Bld) [#/Vol] 0.1 10 3/uL 0.0-0.1 [facility] Basophils/100 WBC Auto (Bld) on 12-26-2023 Basophils/100 WBC (Bld) 0.9 % 0.2-2.0 [facility] Cholesterol in LDL Calc [Mas s/Vol]on 12-26-2023 Cholesterol in LDL [Mass/Vol] 85.8 mg/dL [facility] Comment on above: <100 mg/dl [id number] 0-129 mg/dl NEAR OR ABOVE [id number] mg/dl BORDERLINE [id number] mg/dl HIGH>190 mg/dl VERY HIGH Cholesterol in VLDL Calc [Ma ss/Vol]on 12-26-2023 Cholesterol in VLDL [Mass/Vol] 8.2 mg/dL [facility] Eosinophils/100 WBC Auto (Bl d)on 12-26-2023 Eosinophils/100 WBC (Bld) 3.5 % 0.9-7.0 [facility] Erythrocyte distribution wid th Auto (RBC) [Ratio]on 12-26-2023 Erythrocyte distribution width (RBC) [Ratio] 12.4 % 11.0-15.0 [facility] Estimated glomerular filtrat ion rate (GFR) non- Americanon 12-26-2023 GFR/1.73 sq M.predicted among non-blacks MDRD (S/P/Bld) [Vol rate/Area] mL/min/{1.73_m2} >=60 [facility] Globulin Calc (S) [Mass/Vol] on 12-26-2023 Globulin (S) [Mass/Vol] 3.2 g/dL [facility] Glucose mean value [Mass/vol ume] in Blood Estimated from glycated hemoglobinon 12-26-2023 Average glucose Estimated from glycated hemoglobin (Bld) [Mass/Vol] 128 mg/dL [facility] Hematocrit Auto (Bld) [Volum e fraction]on 12-26-2023 Hematocrit (Bld) [Volume fraction] 45.9 % 42.0-54.0 [facility] Hemoglobin [Mass/volume] in Bloodon 12-26-2023 Hemoglobin (Bld) [Mass/Vol] 14.7 g/dL 14.0-18.0 [facility] Laboratory - Chemistry and C hemistry - challengeon 12-26-2023 Albumin [Mass/Vol] 3.8 g/dL 3.4-5.0 [facility] ALP [Catalytic activity/Vol] 66 U/L 46-116 [facility] ALT [Catalytic activity/Vol] 33 U/L 16-63 [facility] AST [Catalytic activity/Vol] 15 U/L 15-37 [facility] Bilirubin [Mass/Vol] 0.3 mg/dL 0.2-1.0 [facility] Calcium [Mass/Vol] 8.8 mg/dL 8.5-10.1 [facility] Chloride [Moles/Vol] 104 mmol/L 98-107 [facility] Cholesterol [Mass/Vol] 152 mg/dL <=[address] [facility] Cholesterol in HDL [Mass/Vol] 58 mg/dL 40-60 [facility] Comment on above: > or =60 mg/dl - LOW CARDIOVASCULAR RISK<40 mg/dl - HIGH CARDIOVASCULAR RISK CO2 [Moles/Vol] 30.7 mmol/L 21.0-32.0 [facility] Creatinine [Mass/Vol] 0.97 mg/dL 0.70-1.30 [facility] GFR/1.73 sq M.predicted MDRD (S/P/Bld) [Vol rate/Area] mL/min/{1.73_m2} >=60 [facility] Glucose [Mass/Vol] 93 mg/dL 74-106 [facility] Potassium [Moles/Vol] 4.5 mmol/L 3.5-5.1 [facility] Protein [Mass/Vol] 7.0 g/dL 6.4-8.2 [facility] Sodium [Moles/Vol] 140 mmol/L 136-145 [facility] Triglyceride [Mass/Vol] 41 mg/dL <=150 [facility] TSH Qn 1.818 m[IU]/L 0.358-3.740 [facility] Urea nitrogen [Mass/Vol] 21.0 mg/dL High 7.0-18.0 [facility] Urea nitrogen/Creatinine [Mass ratio] 21.6 mg/mg [facility] Laboratory - Hematology and Cell countson 12-26-2023 HbA1c (Bld) [Mass fraction] 6.1 % 4.5-6.2 [facility] Comment on above: ADA RECOMMENDED LIMI T 4.0 - 6.0ADA THERAPEUTIC TARGET < 7.0ACTION SUGGESTED> 7.0 Immature granulocytes/100 WBC (Bld) 0.3 % 0.0-0.5 [facility] Leukocytes [#/volume] correc nick for nucleated erythrocytes in Blood by Automated counon 12-26-2023 WBC corrected for nucl RBC Auto (Bld) [#/Vol] 6.8 10 3/uL 4.0-11.0 [facility] Lymphocytes Auto (Bld) [#/Vo l]on 12-26-2023 Lymphocytes (Bld) [#/Vol] 2.1 10 3/uL 1.2-3.8 [facility] Lymphocytes/100 WBC Auto (Bl d)on 12-26-2023 Lymphocytes/100 WBC (Bld) 30.3 % 20.5-60.0 [facility] MCH Auto (RBC) [Entitic mass ]on 12-26-2023 MCH (RBC) [Entitic mass] 30.4 pg 25.9-34.0 [facility] MCHC Auto (RBC) [Mass/Vol]on 12-26-2023 MCHC (RBC) [Mass/Vol] 32.0 g/dL 29.9-35.2 [facility] MCV Auto (RBC) [Entitic vol] on 12-26-2023 MCV (RBC) [Entitic vol] 95.0 fL High 80.0-94.0 [facility] Monocytes Auto (Bld) [#/Vol] on 12-26-2023 Monocytes (Bld) [#/Vol] 0.8 10 3/uL 0.3-0.8 [facility] Monocytes/100 WBC Auto (Bld) on 12-26-2023 Monocytes/100 WBC (Bld) 12.0 % 1.7-12.0 [facility] Neutrophils Auto (Bld) [#/Vo l]on 12-26-2023 Neutrophils (Bld) [#/Vol] 3.6 10 3/uL 1.4-6.5 [facility] Neutrophils/100 WBC Auto (Bl d)on 12-26-2023 Neutrophils/100 WBC (Bld) 53.0 % 43.0-75.0 [facility] No Panel Informationon 12-25 Eosinophils # (Auto) 0.2 10 3/uL 0.0-0.7 [facility] Immature Granulocyte # (Auto) 0.02 10 3/uL 0.00-0.03 [facility] Prostate Specific Antigen Screen 5.33 ng/mL High <=4.00 [facility] Platelet mean volume Auto (B ld) [Entitic vol]on 12-26-2023 Platelet mean volume (Bld) [Entitic vol] 11.2 fL 9.5-13.5 [facility] Platelets Auto (Bld) [#/Vol] on 12-26-2023 Platelets (Bld) [#/Vol] 234 10 3/uL 150-450 [facility] RBC Auto (Bld) [#/Vol]on RBC (Bld) [#/Vol] 4.83 10 6/uL 4.70-6.10 [facility] Serum or plasma albumin/glob ulin mass ratioon 12-26-2023 Albumin/Globulin [Mass ratio] 1.2 {ratio} [facility] Serum or plasma anion gap de terminationon 12-26-2023 Anion gap [Moles/Vol] 9.8 mmol/L [facility] Serum or plasma total choles terol/high density lipoprotein (HDL) cholesterol mass lorenza 12-26-2023 Cholesterol.total/Choles terol in HDL [Mass ratio] 2.6 {ratio} [facility] Comment on above: 3.3 - 4.4 LOW [...] non-blacks MDRD (S/P/Bld) [Vol rate/Area] mL/min/{1.73_m2} >=60 [facility] Globulin Calc (S) [Mass/Vol] on 08-30-2023 Globulin (S) [Mass/Vol] 3.3 g/dL [facility] Glucose mean value [Mass/vol ume] in Blood Estimated from glycated hemoglobinon 08-30-2023 Average glucose Estimated from glycated hemoglobin (Bld) [Mass/Vol] 126 mg/dL [facility] Laboratory - Chemistry and C hemistry - challengeon 08-30-2023 Albumin [Mass/Vol] 3.8 g/dL 3.4-5.0 [facility] ALP [Catalytic activity/Vol] 60 U/L 46-116 [facility] ALT [Catalytic activity/Vol] 31 U/L 16-63 [facility] AST [Catalytic activity/Vol] 19 U/L 15-37 [facility] Bilirubin [Mass/Vol] 0.5 mg/dL 0.2-1.0 [facility] Calcium [Mass/Vol] 8.8 mg/dL 8.5-10.1 [facility] Chloride [Moles/Vol] 102 mmol/L 98-107 [facility] CO2 [Moles/Vol] 26.7 mmol/L 21.0-32.0 [facility] Creatinine [Mass/Vol] 1.16 mg/dL 0.70-1.30 [facility] GFR/1.73 sq M.predicted MDRD (S/P/Bld) [Vol rate/Area] mL/min/{1.73_m2} >=60 [facility] Glucose [Mass/Vol] 115 mg/dL 74-106 [facility] Potassium [Moles/Vol] 4.2 mmol/L 3.5-5.1 [facility] Protein [Mass/Vol] 7.1 g/dL 6.4-8.2 [facility] Sodium [Moles/Vol] 139 mmol/L 136-145 [facility] Urea nitrogen [Mass/Vol] 18.0 mg/dL 7.0-18.0 [facility] Urea nitrogen/Creatinine [Mass ratio] 15.5 mg/mg [facility] Laboratory - Hematology and Cell countson 08-30-2023 HbA1c (Bld) [Mass fraction] 6.0 % 4.5-6.2 [facility] Comment on above: ADA RECOMMENDED LIMI T 4.0 - 6.0ADA THERAPEUTIC TARGET < 7.0ACTION SUGGESTED> 7.0 Microalbumin [Mass/volume] i n Urineon 08-30-2023 Albumin DL <= 20 mg/L (U) [Mass/Vol] mg/dL <=30.0 [facility] No Panel Informationon 08-29 Urine Random Creatinine 63.67 mg/dL 20.00-300.0 0 [facility] Serum or plasma albumin/glob ulin mass ratioon 08-30-2023 Albumin/Globulin [Mass ratio] 1.2 {ratio} [facility] Serum or plasma anion gap de terminationon 08-30-2023 Anion gap [Moles/Vol] 14.5 mmol/L [facility] Urine microalbumin/creatinin e mass ratioon 08-30-2023 Albumin/Creatinine DL <= 20 mg/L (U) [Mass ratio] 20.4 mg/g 0.0-29.9 [facility] Comment on above: NO MICROALBUMINURIA 0-29 MG/GCLINICAL MICROALBUMINURIA 30-300 MG/GMACROALBUMINURIA >300 MG/G [facility] CARDIAC STRESS/REST INJE CTIONon 10-31-2022 [facility] CARDIAC STRESS/REST INJECTION Patient Name: VÍCTOR NIHCOLS STUDY: MYOCARDIAL PERFUSION STRESS TEST WITH LEXISCAN Performing facility: [facility], [address] [place] [address], [address] Provider: Helen Clark MD, FACC PCP: Dr. Alize Carrasco Supervising provider: Helen Clark MD, FACC INDICATION: ASCVD Hx PTCA Diastolic dysfunction Hx CABG Pre-operative risk assessment for Knee surgery scheduled at [facility] on [facility]. HISTORY: Gender: M; Age: 71 y/o ; Height: 157.48 cm; Weight: 96.9220616 kg. CAD; High Cholesterol; Previous PA; HTN; COPD; Quit smoking 14 years ago. Cardiac catheterization on 2007, 2013, 2017, 2018, 2019. PTCA on 2007. CABG on 2004. COMPARISON: Previous nuclear testing completed [id number] at [facility]. ACCESSION NUMBER(S): [id number]; [id number]; [id number] ORDERING CLINICIAN: JOSHUA CLARK TECHNIQUE: ONE DAY [...] interval changes were seen. Electronically signed by: MAXX CLIFFORD MD Normal [facility] No Panel Informationon 10-31 Normal -[facility] [address] DO Work Phone: Creatinine and Glomerular fi ltration rate.predicted panel (S/P/Bld)Ordered By: Luis Alberto Carrasco on 09-20-2021 Creatinine [Mass/Vol] 1.16 mg/dL 0.64-1.27 [facility] Estimated glomerular filtrat ion rate (GFR) non- AmericanOrdered By: Luis Alberto Carrasco on 09-20-2021 GFR/1.73 sq M.predicted among non-blacks MDRD (S/P/Bld) [Vol rate/Area] > 60 mL/Min [facility] No Panel InformationOrdered By: Luis Alberto Carrasco on 09-20-2021 Estimated GFR () > 60 mL/Min [facility] Comment on above: GFR estimated refere nce range: According to KDOQI guidelines, <60 ml/min/1.73m2 is sufficient to diagnose a patient with chronic kidney disease. Pharmacy Creatinine Clearance (Chem N/A [facility] Serum or plasma calcium vadim urement (mass/volume)Ordered By: Luis Alberto Carrasco on 09-20-2021 Calcium [Mass/Vol] 9.2 mg/dL 8.2-10.2 [facility] Serum or plasma chloride sheri surement (moles/volume)Ordered By: Luis Alberto Carrasco on 09-20-2021 Chloride [Moles/Vol] 100 mmol/L 95-114 [facility] Serum or plasma glucose vadim urement (mass/volume)Ordered By: Luis Alberto Carrasco on 09-20-2021 Glucose [Mass/Vol] 112 mg/dL 70-100 [facility] Comment on above: ADA recommended refe rence range Random Glucose Reference Range is dependent on time and content of last meal. Glucose of more than 200 mg/dL in a nonstressed, ambulatory subject supports the diagnosis of Diabetes Mellitus. Serum or plasma potassium me asurement (moles/volume)Ordered By: Luis Alberto Carrasco on 09-20-2021 Potassium [Moles/Vol] 4.3 mmol/L 3.5-5.1 [facility] Serum or plasma sodium measu rement (moles/volume)Ordered By: Luis Alberto Carrasco on 09-20-2021 Sodium [Moles/Vol] 136 mmol/L 136-146 [facility] Serum or plasma total carbon dioxide measurement (moles/volume)Ordered By: Luis Alberto Carrasco on 09-20-2021 CO2 [Moles/Vol] 27.3 mmol/L 22.0-30.0 [facility] Serum or plasma urea nitroge n measurement (mass/volume)Ordered By: Luis Alberto Carrasco on 09-20-2021 Urea nitrogen [Mass/Vol] 16 mg/dL 9-23 [facility] Laboratory - Chemistry and C hemistry - challengeOrdered By: Ras Washburn on 09-04-2021 Cobalamin (Vitamin B12) [Mass/Vol] 315 pg/mL 180-914 [facility] TSH DL <= 0.005 mIU/L QnOrde red By: Ras Washburn on 09-04-2021 TSH Qn 1.49 m[IU]/L 0.45-5.33 [facility] Office Visit (Cardiology)on 09-01-2021 Follow-up visit Diagnoses/Problems Assessed ASCVD (arteriosclerotic cardiovascular disease) (429.2,440.9) (I25.10) History of PTCA (V45.82) (Z98.61) Hyperlipidemia (272.4) (E78.5) Hypertension (401.9) (I10) S/P CABG (coronary artery bypass graft) (V45.81) (Z95.1) [id number] Chronic obstructive pulmonary disease (496) (J44.9) Class 2 obesity with body mass index (BMI) of 37.0 to 37.9 in adult (278.00,V85.37) (E66.9,Z68.37) Former smoker (V15.82) (Z87.891) quit 2008 Orders ASCVD (arteriosclerotic cardiovascular disease) Renew: Atorvastatin Calcium 40 MG Oral Tablet; TAKE ONE TABLET BY MOUTH DAILY AT BEDTIME Class 2 obesity with body mass index (BMI) of 37.0 to 37.9 in adult Healthy Weight Tips; Status:Complete; Done: [id number] Hyperlipidemia Renew: Aspirin EC 81 MG Oral Tablet Delayed Release; TAKE 1 TABLET Daily SocHx: Former smoker Tobacco Use Screening; Status:Complete; Done: [id number] Patient Instructions By signing my name below, I, Monserrat Parekh LPNScribe, attest that this documentation has been prepared [...] catheterization with stent placement History of Colonoscopy [id number] History of Coronary artery bypass graft [id number] History of Percutaneous transluminal coronary angioplasty Past [...] 24 HourTAKE ONE TABLET BY MOUTH DAILY Lisinopril-hydroCHLO ROthiazide 10-12.5 MG Oral TabletTAKE ONE TABLET BY [...] Cardiovascular: no (more content not included)... Normal [employer] Tobacco Screening.on 022 Adult depression screening assessment No [facility] [employer] DO Work Phone: Fall risk assessment b) One or more fall s in the last year [facility] [employer] DO Work Phone: Tobacco use status [facility]PH[facility] b) No [facility] [employer] [address] DO Work Phone: XR NECK SOFT TISSUEon 2020 XR NECK [...] authenticated by: CHILO SON Date: 2020-11-22 20:26 [facility] Covid-19 PCR (CVDTBH)on EUA Statement SEE BELOW Normal [facility] Comment on above: Result Comment: This test is not yet approved or cleared by the [place] FDA. When there are no FDA-approved or cleared tests available, and other criteria are met, FDA can make tests available under an emergency access mechanism called an Emergency Use Authorization (EUA). The EUA for this test is supported by the [place] of Health and Human Service?s (HHS?s) declaration [...] SARS-CoV-2. Performed By: #### C VDTB #### [facility] [address] [place] [address] Yaya Florence SARS-CoV-2 (COVID-19) RNA BRIAN+probe Ql (Unsp spec) Not detected Normal NOT DETECTED [facility] Comment on above: Result Comment: This test is not yet approved or cleared by the [place] FDA. When there are no FDA-approved or cleared tests available, and other criteria are met, FDA can make tests available under an emergency access mechanism called an Emergency Use Authorization (EUA). The EUA for this test is supported by the [employer] of Health and Human Service's (HHS's) declaration [...] used). Performed By: #### C VDTB #### [facility] [address] [place], [place] [id number] Yaya Florence No Panel Information [facility] Vital Signs Date Time Vital Sign Value Performing Clinician Facility 12-29-2024 11:26-0400 Body height 160 cm Joshua Dill DO Work Phone: [facility] 12-29-2024 11:26-0400 Body mass index (BMI) [Ratio] 37.02 kg/m2 Joshua Dill DO Work Phone: [facility] 12-29-2024 11:26-0400 Body weight 94.8 kg Joshua Dill DO Work Phone: [facility] 12-29-2024 11:26-0400 Diastolic blood pressure 58 mm[Hg] Joshua Dill DO Work Phone: [facility] 12-29-2024 11:26-0400 Heart rate 68 /min Joshua Dill DO Work Phone: [facility] 12-29-2024 11:26-0400 Systolic blood pressure 106 mm[Hg] Joshua Dill DO Work Phone: [facility] 11-03-2024 11:35-0400 Diastolic blood pressure 63 mm[Hg] Luis Alberto Carrasco MD Work Phone: [facility] 11-03-2024 11:35-0400 Heart rate 59 /min Luis Alberto Carrasco MD Work Phone: [facility] 11-03-2024 11:35-0400 Respiratory rate 16 /min Luis Alberto Carrasco MD Work Phone: [facility] 11-03-2024 11:35-0400 SaO2% (BldA) [Mass fraction] 98 % Luis Alberto Carrasco MD Work Phone: [facility] 11-03-2024 11:35-0400 Systolic blood pressure 114 mm[Hg] Luis Alberto Carrasco MD Work Phone: [facility] 11-03-2024 10:05-0400 Inhaled oxygen flow rate 6 L/min Luis Alberto Carrasco MD Work Phone: [facility] 11-03-2024 09:50-0400 Body temperature 96.8 [degF] Luis Alberto Carrasco MD Work Phone: [facility] 11-03-2024 07:00-0400 Body height 157.48 cm Luis Alberto Carrasco MD Work Phone: [facility] 11-03-2024 07:00-0400 Body weight 100 kg Luis Alberto Carrasco MD Work Phone: [facility] 10-22-2024 10:23-0400 Body height 157.48 cm Luis Alberto Carrasco MD Work Phone: [facility] 10-22-2024 10:23-0400 Body mass index (BMI) [Ratio] 40.4 kg/m2 Luis Alberto Carrasco MD Work Phone: [facility] 10-22-2024 10:23-0400 Body weight 100.24 kg Luis Alberto Carrasco MD Work Phone: [facility] 10-22-2024 10:23-0400 Diastolic blood pressure 66 mm[Hg] Luis Alberto Carrasco MD Work Phone: [facility] 10-22-2024 10:23-0400 Heart rate 68 /min Luis Alberto Carrasco MD Work Phone: [facility] 10-22-2024 10:23-0400 Systolic blood pressure 152 mm[Hg] Luis Alberto Carrasco MD Work Phone: [facility] 10-19-2024 10:42-0400 Body height 157.48 cm Luis Alberto Carrasco MD Work Phone: [facility] 10-19-2024 10:42-0400 Body mass index (BMI) [Ratio] 40.6 kg/m2 Luis Alberto Carrasco MD Work Phone: [facility] 10-19-2024 10:42-0400 Body temperature 97.7 [degF] Luis Alberto Carrasco MD Work Phone: [facility] 10-19-2024 10:42-0400 Body weight 100.69 kg Luis Alberto Carrasco MD Work Phone: [facility] 10-19-2024 10:42-0400 Diastolic blood pressure 71 mm[Hg] Luis Alberto Carrasco MD Work Phone: [facility] 10-19-2024 10:42-0400 Heart rate 75 /min Luis Alberto Carrasco MD Work Phone: [facility] 10-19-2024 10:42-0400 Respiratory rate 18 /min Luis Alberto Carrasco MD Work Phone: [facility] 10-19-2024 10:42-0400 SaO2% (BldA) [Mass fraction] 98 % Luis Alberto Carrasco MD Work Phone: [facility] 10-19-2024 10:42-0400 Systolic blood pressure 153 mm[Hg] Luis Alberto Carrasco MD Work Phone: [facility] 10-02-2024 09:33-0400 Diastolic blood pressure 75 mm[Hg] Luis Alberto Carrasco MD Work Phone: [facility] 10-02-2024 09:33-0400 Heart rate 76 /min Luis Alberto Carrasco MD Work Phone: [facility] 10-02-2024 09:33-0400 Respiratory rate 16 /min Luis Alberto Carrasco MD Work Phone: [facility] 10-02-2024 09:33-0400 SaO2% (BldA) [Mass fraction] 97 % Luis Alberto Carrasco MD Work Phone: [facility] 10-02-2024 09:33-0400 Systolic blood pressure 166 mm[Hg] Luis Alberto Carrasco MD Work Phone: [facility] 10-02-2024 06:56-0400 Body height 157.48 cm Luis Alberto Carrasco MD Work Phone: [facility] 10-02-2024 06:56-0400 Body weight 98.43 kg Luis Alberto Carrasco MD Work Phone: [facility] 09-07-2024 10:53-0400 Body height 154.94 cm Luis Alberto Carrasco MD Work Phone: [facility] 09-07-2024 10:53-0400 Body mass index (BMI) [Ratio] 41.1 kg/m2 Luis Alberto Carrasco MD Work Phone: [facility] 09-07-2024 10:53-0400 Body weight 98.65 kg Luis Alberto Carrasco MD Work Phone: [facility] 09-07-2024 10:53-0400 Diastolic blood pressure 69 mm[Hg] Luis Alberto Carrasco MD Work Phone: [facility] 09-07-2024 10:53-0400 Heart rate 78 /min Luis Alberto Carrasco MD Work Phone: [facility] 09-07-2024 10:53-0400 Systolic blood pressure 124 mm[Hg] Luis Alberto Carrasco MD Work Phone: [facility] 09-05-2024 12:00-0400 [facility] 09-05-2024 12:00-0400 Promise to Return [facility] 09-05-2024 11:15-0400 [facility] 09-05-2024 11:15-0400 [facility] 09-05-2024 11:00-0400 Blood Pressure Location [facility] 09-05-2024 11:00-0400 Body temperature 98.06 [degF] [facility] 09-05-2024 11:00-0400 Diastolic blood pressure 62 mm[Hg] [facility] 09-05-2024 11:00-0400 Mean blood pressure 81 mm[Hg] [facility] 09-05-2024 11:00-0400 Respiratory rate 16 /min [facility] 09-05-2024 11:00-0400 SaO2% (BldA) [Mass fraction] 95 % [facility] 09-05-2024 11:00-0400 Systolic blood pressure 120 mm[Hg] [facility] 09-05-2024 10:30-0400 [facility] 09-05-2024 10:30-0400 [facility] 09-05-2024 08:57-0400 Diastolic blood pressure 70 mm[Hg] [facility] 09-05-2024 08:57-0400 Heart rate 60 /min [facility] 09-05-2024 08:57-0400 Systolic blood pressure 130 mm[Hg] [facility] 09-05-2024 08:00-0400 Mean blood pressure 90 mm[Hg] [facility] 09-05-2024 05:11-0400 Body temperature 97.88 [degF] [facility] 09-05-2024 05:11-0400 Heart rate 63 /min [facility] 09-05-2024 05:11-0400 Mean blood pressure 98 mm[Hg] [facility] 09-05-2024 05:11-0400 Respiratory rate 18 /min [facility] 09-05-2024 05:11-0400 SaO2% (BldA) [Mass fraction] 96 % [facility] 09-05-2024 00:41-0400 Body temperature 97.88 [degF] [facility] 09-05-2024 00:41-0400 Mean blood pressure 89 mm[Hg] [facility] 09-04-2024 20:23-0400 Body temperature 97.52 [degF] [facility] 09-04-2024 20:23-0400 Mean blood pressure 87 mm[Hg] [facility] 09-04-2024 15:54-0400 Mean blood pressure 84 mm[Hg] [facility] 09-04-2024 08:52-0400 Heart rate 60 /min [facility] 09-04-2024 06:49-0400 Heart rate 97 /min [facility] 09-04-2024 03:46-0400 Body temperature 97.88 [degF] [facility] 09-04-2024 02:05-0400 Blood Pressure Location [facility] 09-04-2024 02:05-0400 Heart rate 67 /min [facility] 09-03-2024 23:30-0400 Respiratory rate 14 /min [facility] 09-03-2024 22:30-0400 Respiratory rate 16 /min [facility] 09-03-2024 21:30-0400 Respiratory rate 15 /min [facility] 09-03-2024 19:24-0400 Heart rate 84 /min [facility] 09-03-2024 15:12-0400 Heart rate 75 /min [facility]UDI NKANSAH-AMANK[facility] 09-03-2024 15:12-0400 SaO2% (BldA) [Mass fraction] 97 % RUDI NKANSAH-AMANKRA [facility] 09-03-2024 15:12-0400 Diastolic blood pressure 62 mm[Hg] RUDI NKANSAH-AMANKRA [facility] 09-03-2024 15:12-0400 Mean blood pressure 85 mm[Hg] RUDI NKANSAH-AMANKRA [facility] 09-03-2024 15:12-0400 Systolic blood pressure 131 mm[Hg] RUDI NKANSAH-AMANKRA [facility] 09-03-2024 15:12-0400 Mean blood pressure 85 mm[Hg] RUDI NKANSAH-AMANKRA [facility] 09-03-2024 15:11-0400 Respiratory rate 16 /min RUID NKANSAH-AMANKRA [facility] 09-03-2024 13:21-0400 Heart rate 68 /min RUDI NKANSAH-AMANKRA [facility] 09-03-2024 13:21-0400 SaO2% (BldA) [Mass fraction] 97 % RUDI NKANSAH-AMANKRA [facility] 09-03-2024 13:21-0400 Diastolic blood pressure 63 mm[Hg] RUDI NKANSAH-AMANKRA [facility] 09-03-2024 13:21-0400 Mean blood pressure 99 mm[Hg] RUDI NKANSAH-AMANKRA [facility] 09-03-2024 13:21-0400 Systolic blood pressure 172 mm[Hg] RUDI NKANSAH-AMANKRA [facility] 09-03-2024 13:21-0400 Respiratory rate 16 /min RUDI NKANSAH-AMANKRA [facility] 09-03-2024 11:13-0400 Heart rate 62 /min RUDI NKANSAH-AMANKRA [facility] 09-03-2024 11:13-0400 SaO2% (BldA) [Mass fraction] 96 % RUDI NKANSAH-AMANKRA [facility] 09-03-2024 11:13-0400 Respiratory rate 16 /min RUDI NKANSAH-AMANKRA [facility] 09-03-2024 11:12-0400 Diastolic blood pressure 69 mm[Hg] RUDI NKANSAH-AMANKRA [facility] 09-03-2024 11:12-0400 Mean blood pressure 95 mm[Hg] RUDI NKANSAH-AMANKRA [facility] 09-03-2024 11:12-0400 Systolic blood pressure 149 mm[Hg] RUDI NKANSAH-AMANKRA [facility] 09-03-2024 09:23-0400 Respiratory rate 16 /min RUDI NKANSAH-AMANKRA [facility] 09-03-2024 09:23-0400 Blood Pressure Location RUDI NKANSAH-AMANKRA [facility] 09-03-2024 09:23-0400 Body temperature 97.7 [degF] RUDI NKANSAH-AMANKRA [facility] 09-03-2024 09:23-0400 Mean blood pressure 91 mm[Hg] RUDI NKANSAH-AMANKRA [facility] 09-03-2024 09:20-0400 Respiratory rate 18 /min RUDI NKANSAH-AMANKRA [facility] 09-03-2024 09:20-0400 Blood Pressure Location RUDI NKANSAH-AMANKRA [facility] 09-03-2024 09:20-0400 Mean blood pressure 89 mm[Hg] RUDI NKANSAH-AMANKRA [facility] 09-03-2024 09:15-0400 Respiratory rate 18 /min RUDI NKANSAH-AMANKRA [facility] 09-03-2024 09:15-0400 Blood Pressure Location RUDI BRIDGES-AMANKRA [facility] 09-03-2024 08:57-0400 Body temperature 97.34 [degF] RUDI BRIDGES-AMANKRA [facility] 09-03-2024 06:21-0400 Body temperature 97.7 [degF] RUDI BRIDGES-AMANKRA [facility] 09-01-2024 08:11-0400 Body height 157.5 cm Jairo Ch CLOTH INSPECTOR-SALES APPLICATIONS ENGINEER Work Phone: [facility] 09-01-2024 08:11-0400 Body mass index (BMI) [Ratio] 41.7 kg/m2 Jairo Ch CLOTH INSPECTOR-SALES APPLICATIONS ENGINEER Work Phone: [facility] 09-01-2024 08:11-0400 Body weight 103.42 kg Jairo Ch CLOTH INSPECTOR-SALES APPLICATIONS ENGINEER Work Phone: [facility] 09-01-2024 08:11-0400 Diastolic blood pressure 80 mm[Hg] Jairo Ch CLOTH INSPECTOR-SALES APPLICATIONS ENGINEER Work Phone: [facility] 09-01-2024 08:11-0400 Heart rate 62 /min Jairo Ch CLOTH INSPECTOR-SALES APPLICATIONS ENGINEER Work Phone: [facility] 09-01-2024 08:11-0400 Systolic blood pressure 110 mm[Hg] Jairo Ch CLOTH INSPECTOR-SALES APPLICATIONS ENGINEER Work Phone: [facility] 08-25-2024 13:55-0400 Body height 157.5 cm Jairo Ch CLOTH INSPECTOR-SALES APPLICATIONS ENGINEER Work Phone: [facility] 08-25-2024 13:55-0400 Body mass index (BMI) [Ratio] 41.15 kg/m2 Jairo Ch CLOTH INSPECTOR-SALES APPLICATIONS ENGINEER Work Phone: [facility] 08-25-2024 13:55-0400 Body weight 102.06 kg Jairo Ch CLOTH INSPECTOR-SALES APPLICATIONS ENGINEER Work Phone: [facility] 08-25-2024 13:55-0400 Diastolic blood pressure 62 mm[Hg] Jairo Ch CLOTH INSPECTOR-SALES APPLICATIONS ENGINEER Work Phone: [facility] 08-25-2024 13:55-0400 Heart rate 68 /min Jairo Ch CLOTH INSPECTOR-SALES APPLICATIONS ENGINEER Work Phone: [facility] 08-25-2024 13:55-0400 Systolic blood pressure 120 mm[Hg] Jairo Ch CLOTH INSPECTOR-SALES APPLICATIONS ENGINEER Work Phone: [facility] 08-25-2024 10:42-0400 Body height 154.94 cm Luis Alberto Carrasco MD Work Phone: [facility] 08-25-2024 10:42-0400 Body mass index (BMI) [Ratio] 42.2 kg/m2 Luis Alberto Carrasco MD Work Phone: [facility] 08-25-2024 10:42-0400 Body weight 101.32 kg Luis Alberto Carrasco MD Work Phone: [facility] 08-25-2024 10:42-0400 Diastolic blood pressure 73 mm[Hg] Luis Alberto Carrasco MD Work Phone: [facility] 08-25-2024 10:42-0400 Heart rate 66 /min Luis Alberto Carrasco MD Work Phone: [facility] 08-25-2024 10:42-0400 Respiratory rate 12 /min Luis Alberto Carrasco MD Work Phone: [facility] 08-25-2024 10:42-0400 SaO2% (BldA) [Mass fraction] 98 % Luis Alberto Carrasco MD Work Phone: [facility] 08-25-2024 10:42-0400 Systolic blood pressure 135 mm[Hg] Luis Alberto Carrasco MD Work Phone: [facility] 08-11-2024 12:16-0400 Body height 157.[address] 08-11-2024 12:16-0400 Body mass index (BMI) [Ratio] 39.69 kg/m2 [address] 08-11-2024 12:16-0400 Body weight 98.[address] 08-11-2024 12:16-0400 Diastolic blood pressure 60 mm[Hg] [address] 08-11-2024 12:16-0400 Systolic blood pressure 116 mm[Hg] [address] 07-22-2024 15:50-0400 Body height 157.5 cm Jairo Ch CLOTH INSPECTOR-SALES APPLICATIONS ENGINEER Work Phone: [facility] 07-22-2024 15:50-0400 Body mass index (BMI) [Ratio] 39.69 kg/m2 Jairo Ch CLOTH INSPECTOR-SALES APPLICATIONS ENGINEER Work Phone: [facility] 07-22-2024 15:50-0400 Body weight 98.43 kg Jairo Ch CLOTH INSPECTOR-SALES APPLICATIONS ENGINEER Work Phone: [facility] 07-22-2024 15:50-0400 Diastolic blood pressure 50 mm[Hg] Jairo Ch CLOTH INSPECTOR-SALES APPLICATIONS ENGINEER Work Phone: [facility] 07-22-2024 15:50-0400 Heart rate 72 /min Jairo Ch CLOTH INSPECTOR-SALES APPLICATIONS ENGINEER Work Phone: [facility] 07-22-2024 15:50-0400 Systolic blood pressure 112 mm[Hg] Jairo Ch CLOTH INSPECTOR-SALES APPLICATIONS ENGINEER Work Phone: [facility] 07-01-2024 09:37-0500 Diastolic blood pressure 92 mm[Hg] Luis Alberto Carrasco MD Work Phone: [facility] 07-01-2024 09:37-0500 Heart rate 71 /min Luis Alberto Carrasco MD Work Phone: [facility] 07-01-2024 09:37-0500 Respiratory rate 18 /min Luis Alberto Carrasco MD Work Phone: [facility] 07-01-2024 09:37-0500 SaO2% (BldA) [Mass fraction] 98 % Luis Alberto Carrasco MD Work Phone: [facility] 07-01-2024 09:37-0500 Systolic blood pressure 170 mm[Hg] Luis Alberto Carrasco MD Work Phone: [facility] 07-01-2024 06:39-0500 Body height 154.94 cm Luis Alberto Carrasco MD Work Phone: [facility] 07-01-2024 06:39-0500 Body weight 98.42 kg Luis Alberto Carrasco MD Work Phone: [facility] 06-23-2024 13:03-0500 Body height 165.1 cm [facility] 06-23-2024 13:03-0500 Body mass index (BMI) [Ratio] 37 kg/m2 [facility] 06-23-2024 13:03-0500 Body temperature 98 [degF] [facility] 06-23-2024 13:03-0500 Body weight 101.15 kg [facility] 06-23-2024 13:03-0500 Diastolic blood pressure 76 mm[Hg] [facility] 06-23-2024 13:03-0500 Heart rate 74 /min [facility] 06-23-2024 13:03-0500 SaO2% (BldA) [Mass fraction] 96 % [facility] 06-23-2024 13:03-0500 Systolic blood pressure 130 mm[Hg] [facility] 05-19-2024 10:24-0500 Blood Pressure Location JUSTINE PIEDRA [facility] 05-19-2024 10:24-0500 Diastolic blood pressure 83 mm[Hg] JUSTINE PIEDRA [facility] 05-19-2024 10:24-0500 Heart rate 71 /min JUSTINE PIEDRA [facility] 05-19-2024 10:24-0500 Respiratory rate 19 /min JUSTINE PIEDRA [facility] 05-19-2024 10:24-0500 Systolic blood pressure 165 mm[Hg] JUSTINE PIEDRA [facility] 05-05-2024 13:55-0500 Body height 158.8 cm Joshua Dill DO Work Phone: [facility] 05-05-2024 13:55-0500 Body mass index (BMI) [Ratio] 39.42 kg/m2 Joshua Dill DO Work Phone: [facility] 05-05-2024 13:55-0500 Body weight 99.34 kg Joshua Dill DO Work Phone: [facility] 05-05-2024 13:55-0500 Diastolic blood pressure 64 mm[Hg] Joshua Dill DO Work Phone: [facility] 05-05-2024 13:55-0500 Heart rate 64 /min Joshua Dill DO Work Phone: [facility] 05-05-2024 13:55-0500 Systolic blood pressure 116 mm[Hg] Joshua Dill DO Work Phone: [facility] 04-10-2024 11:51-0500 Body height 165.1 cm [facility] 04-10-2024 11:51-0500 Body mass index (BMI) [Ratio] 37.4 kg/m2 [facility] 04-10-2024 11:51-0500 Body weight 102.05 kg [facility] 04-10-2024 11:51-0500 Diastolic blood pressure 75 mm[Hg] [facility] 04-10-2024 11:51-0500 Heart rate 65 /min [facility] 04-10-2024 11:51-0500 Systolic blood pressure 134 mm[Hg] [facility] 03-30-2024 09:41-0500 Body height 165.1 cm [facility] 03-30-2024 09:41-0500 Body mass index (BMI) [Ratio] 36.8 kg/m2 [facility] 03-30-2024 09:41-0500 Body temperature 98.3 [degF] [facility] 03-30-2024 09:41-0500 Body weight 100.24 kg [facility] 03-30-2024 09:41-0500 Diastolic blood pressure 74 mm[Hg] [facility] 03-30-2024 09:41-0500 Heart rate 76 /min [facility] 03-30-2024 09:41-0500 Respiratory rate 20 /min [facility] 03-30-2024 09:41-0500 SaO2% (BldA) [Mass fraction] 96 % [facility] 03-30-2024 09:41-0500 Systolic blood pressure 139 mm[Hg] [facility] 01-14-2024 14:38-0400 Body height 165.1 cm [facility] 01-14-2024 14:38-0400 Body mass index (BMI) [Ratio] 35.3 kg/m2 [facility] 01-14-2024 14:38-0400 Body weight 96.21 kg [facility] 01-14-2024 14:38-0400 Diastolic blood pressure 70 mm[Hg] [facility] 01-14-2024 14:38-0400 Heart rate 67 /min [facility] 01-14-2024 14:38-0400 Respiratory rate 18 /min [facility] 01-14-2024 14:38-0400 SaO2% (BldA) [Mass fraction] 98 % [facility] 01-14-2024 14:38-0400 Systolic blood pressure 130 mm[Hg] [facility] 12-24-2023 13:27-0400 Body height 154.94 cm [facility] 12-24-2023 13:27-0400 Body mass index (BMI) [Ratio] 41 kg/m2 [facility] 12-24-2023 13:27-0400 Body weight 98.42 kg [facility] 12-24-2023 13:27-0400 Diastolic blood pressure 65 mm[Hg] [facility] 12-24-2023 13:27-0400 Heart rate 72 /min [facility] 12-24-2023 13:27-0400 Systolic blood pressure 115 mm[Hg] [facility] 10-01-2023 09:21-0400 Body height 165.1 cm MD Luis Alberto Carrasco Work Phone: [facility] 10-01-2023 09:21-0400 Body mass index (BMI) [Ratio] 36.4 kg/m2 MD Luis Alberto Carrasco Work Phone: [facility] 10-01-2023 09:21-0400 Body temperature 98.8 [degF] MD Luis Alberto Carrasco Work Phone: [facility] 10-01-2023 09:21-0400 Body weight 99.33 kg MD Luis Alberto Carrasco Work Phone: [facility] 10-01-2023 09:21-0400 Diastolic blood pressure 72 mm[Hg] MD Luis Alberto Carrasco Work Phone: [facility] 10-01-2023 09:21-0400 Heart rate 63 /min MD Luis Alberto Carrasco Work Phone: [facility] 10-01-2023 09:21-0400 Respiratory rate 20 /min MD Luis Alberto Carrasco Work Phone: [facility] 10-01-2023 09:21-0400 SaO2% (BldA) [Mass fraction] 98 % MD Luis Alberto Carrasco Work Phone: [facility] 10-01-2023 09:21-0400 Systolic blood pressure 139 mm[Hg] MD Luis Alberto Carrasco Work Phone: [facility] 09-24-2023 10:51-0400 Body height 158.8 cm Joshua Clark MD Work Phone: [facility] 09-24-2023 10:51-0400 Body mass index (BMI) [Ratio] 39.24 kg/m2 Joshua Clark MD Work Phone: [facility] 09-24-2023 10:51-0400 Body weight 98.88 kg Joshua Clark MD Work Phone: [facility] 09-24-2023 10:51-0400 Diastolic blood pressure 88 mm[Hg] Joshua Clark MD Work Phone: [facility] 09-24-2023 10:51-0400 Heart rate 68 /min Joshua Clark MD Work Phone: [facility] 09-24-2023 10:51-0400 Systolic blood pressure 136 mm[Hg] Joshua Clark MD Work Phone: [facility] 08-26-2023 09:55-0400 Body height 165.1 cm [facility] 08-26-2023 09:55-0400 Body mass index (BMI) [Ratio] 35.7 kg/m2 [facility] 08-26-2023 09:55-0400 Body weight 97.52 kg [facility] 08-26-2023 09:55-0400 Diastolic blood pressure 67 mm[Hg] [facility] 08-26-2023 09:55-0400 Heart rate 76 /min [facility] 08-26-2023 09:55-0400 Systolic blood pressure 120 mm[Hg] [facility] 07-15-2023 11:19-0400 Body height 165.1 cm [facility] 07-15-2023 11:19-0400 Body mass index (BMI) [Ratio] 34.9 kg/m2 [facility] 07-15-2023 11:19-0400 Body weight 95.42 kg [facility] 07-15-2023 11:19-0400 Diastolic blood pressure 77 mm[Hg] [facility] 07-15-2023 11:19-0400 Heart rate 83 /min [facility] 07-15-2023 11:19-0400 Systolic blood pressure 128 mm[Hg] [facility] 02-19-2023 11:00-0400 Body height 165.1 cm Ras Magalie Other [employer] Other 02-19-2023 11:00-0400 Body mass index (BMI) [Ratio] 35.77 kg/m2 Ras Magalie Other [employer] Other 02-19-2023 11:00-0400 Body temperature 98.6 [degF] Ras Hulldano Other [employer] Other 02-19-2023 11:00-0400 Body weight 97.52 kg Akinamerico HullMagalie Other [employer] Other 02-19-2023 11:00-0400 Diastolic blood pressure 69 mm[Hg] Ras Romanno Other [employer] Other 02-19-2023 11:00-0400 Respiratory rate 20 /min Ras Magalie Other [employer] Other 02-19-2023 11:00-0400 SaO2% (BldA) [Mass fraction] 94 % Ras Hulldano Other [employer] Other 02-19-2023 11:00-0400 Systolic blood pressure 120 mm[Hg] Akiner Magalie Other [employer] Other 10-05-2022 10:00-0400 Body height 165.1 cm Luis Alberto Carrasco Other [employer] Other 10-05-2022 10:00-0400 Body mass index (BMI) [Ratio] 34.44 kg/m2 Luis Alberto Danilo Other [employer] Other 10-05-2022 10:00-0400 Body weight 93.9 kg Luis Alberto Danilo Other [employer] Other 10-05-2022 10:00-0400 Diastolic blood pressure 76 mm[Hg] Luis Alberto Danilo Other [employer] Other 10-05-2022 10:00-0400 Systolic blood pressure 149 mm[Hg] Luis Alberto Danilo Other [employer] Other 07-09-2022 13:15-0500 Body height 165.1 cm Akiner Magalie Other [employer] Other 07-09-2022 13:15-0500 Body mass index (BMI) [Ratio] 36.27 kg/m2 Christpriyaer Magalie Other [employer] Other 07-09-2022 13:15-0500 Body temperature 97.4 [degF] Christopher Magalie Other [employer] Other 07-09-2022 13:15-0500 Body weight 98.88 kg Christopher Magalie Other [employer] Other 07-09-2022 13:15-0500 Diastolic blood pressure 80 mm[Hg] Christopher Magalie Other [employer] Other 07-09-2022 13:15-0500 Respiratory rate 20 /min Christopher Magalie Other [employer] Other 07-09-2022 13:15-0500 SaO2% (BldA) [Mass fraction] 98 % Ras Romanno Other [employer] Other 07-09-2022 13:15-0500 Systolic blood pressure 126 mm[Hg] Ras Romanno Other [employer] Other 09-01-2021 13:58-0400 Body height 157.48 cm Luis Alberto Carrasco Work Phone: [email or web address] [employer] [employer] DO Work Phone: 09-01-2021 13:58-0400 Body mass index (BMI) [Ratio] 37.13 kg/m2 Luis Alberto Carrasco Work Phone: [facility] [employer] 250 DO Work Phone: 09-01-2021 13:58-0400 Body surface area Derived from formula 1.92 m2 Luis Alberto Carrasco Work Phone: [facility] [employer] 250 DO Work Phone: 09-01-2021 13:58-0400 Body weight 92.08 kg Luis Alberto Carrasco Work Phone: [facility] 250 DO Work Phone: 09-01-2021 13:58-0400 Diastolic blood pressure 78 mm[Hg] Luis Alberto Carrasco Work Phone: [facility] [employer] DO Work Phone: 09-01-2021 13:58-0400 Heart rate 72 /min Luis Alberto Carrasco Work Phone: [facility] [address] DO Work Phone: 09-01-2021 13:58-0400 Systolic blood pressure 124 mm[Hg] Luis Alberto Carrasco Work Phone: [facility] [employer] DO Work Phone: 03-21-2021 16:45-0500 Body height 165.1 cm Isaiassuzanne Hulldano Other [employer] Other 03-21-2021 16:45-0500 Body mass index (BMI) [Ratio] 35.44 kg/m2 Christpriyaer Magalie Other [employer] Other 03-21-2021 16:45-0500 Body temperature 97.9 [degF] Akiner Magalie Other [employer] Other 03-21-2021 16:45-0500 Body weight 96.62 kg Akiner Magalie Other [employer] Other 03-21-2021 16:45-0500 Diastolic blood pressure 60 mm[Hg] Akiner Magalie Other [employer] Other 03-21-2021 16:45-0500 Respiratory rate 20 /min Akiner Magalie Other [employer] Other 03-21-2021 16:45-0500 SaO2% (BldA) [Mass fraction] 98 % Isaiaspriyaer Magalie Other [employer] Other 03-21-2021 16:45-0500 Systolic blood pressure 112 mm[Hg] Akiner Magalie Other [employer] Other 02-20-2021 14:30-0400 Body height 165.1 cm Lam Pelaez Other [employer] Other 02-20-2021 14:30-0400 Body mass index (BMI) [Ratio] 35.44 kg/m2 Lam Pelaez Other [employer] [facility] [employer] Other 02-20-2021 14:30-0400 Body weight 96.62 kg Lam Pelaez Other [place] [employer] Other Encounters Encounter Date Encounter Type Care Provider Facility Start: 12-29-2024 End: 12-29-2024 Office outpatient visit 15 minutes Joshua Hickeydon DO Work Phone: [facility] Comment on above: ASCVD (arteriosclero tic cardiovascular disease); Diastolic dysfunction; Hyperlipidemia, unspecified hyperlipidemia type; Essential hypertension; Prostate cancer (Multi); S/P CABG (coronary artery bypass graft); BMI 37.0-37.9, adult; Former smoker Start: 12-29-2024 End: 12-29-2024 ambulatory [facility] Start: 12-28-2024 Registered Recurring [facility] Work Phone: Start: 12-28-2024 End: 12-28-2024 ambulatory Luis Alberto Carrasco MD Work Phone: [facility] Work Phone: Start: 12-28-2024 End: 12-28-2024 Patient encounter procedure Franca [facility] Work Phone: Start: 12-14-2024 End: 12-14-2024 External Result Encounter Franca Baker [facility] [employer] Work Phone: [facility] External Department Unsolicited Start: 12-14-2024 End: 12-14-2024 External Result Encounter Franca Baker [facility]io [employer] Work Phone: [facility] External Department Unsolicited Start: 11-27-2024 End: 11-27-2024 External Result Encounter Franca Baker Juven[employer]io [employer] Work Phone: [facility] External Department Unsolicited Start: 11-27-2024 End: 11-27-2024 External Result Encounter Franca Baker Juvencio [employer] Work Phone: [facility] External Department Unsolicited Start: 11-25-2024 Non-patient / Non-visit Shannon Lindsey MD -[facility] Work Phone: Start: 11-18-2024 Non-patient / Non-visit Ken mcgill MD [facility] Ambulatory Work Phone: Start: 11-05-2024 Non-patient / Non-visit Ken mcgill MD [facility] Work Phone: Start: 11-03-2024 End: 11-03-2024 ambulatory Ken Rios Facility:[facility] Start: 11-03-2024 Non-patient / Non-visit Ken mcgill MD [facility] Work Phone: Start: 10-27-2024 End: 10-27-2024 Patient encounter procedure Ken Rios MD -Pre-Surgical Testing Work Phone: Start: 10-27-2024 End: 10-27-2024 ambulatory Ken Rios Facility:[facility] Start: 10-27-2024 Encounter for preprocedural laboratory examination Ken Rios [facility] Start: 10-22-2024 End: 10-22-2024 Patient encounter procedure Luis Alberto Carrasco MD -[facility] Work Phone: Start: 10-19-2024 Registered Recurring Ken almanzar MD -[facility] Work Phone: Start: 10-19-2024 End: 10-19-2024 Patient encounter procedure Ken Rios MD [facility] Work Phone: Start: 10-12-2024 End: 10-12-2024 Patient encounter procedure Luis Alberto Carrasco MD Work Phone: [facility] Work Phone: Start: 10-12-2024 End: 10-12-2024 ambulatory Luis Alberto Carrasco MD Work Phone: [facility] Work Phone: Start: 10-08-2024 End: 10-08-2024 Telephone encounter Angeles Rushing MD Work Phone: Radiation Oncology Comment on above: Appointment Start: 10-07-2024 End: 10-07-2024 E-mail encounter from caregiver Camelia Piedra MD Work Phone: Urology Start: 10-07-2024 End: 10-07-2024 Patient encounter procedure Camelia Piedra MD Work Phone: Urology Comment on above: Prostate cancer (HCC ) (Primary Dx) Start: 10-07-2024 End: 10-07-2024 ambulatory CAMELIA ADAMS JR Facility:[facility] Start: 10-02-2024 Non-patient / Non-visit Luis Alberto Carrasco MD Work Phone: [facility] Work Phone: Start: 10-02-2024 End: 10-02-2024 Admission to same day surgery center Luis Alberto Carrasco MD Work Phone: [facility] Work Phone: Start: 10-02-2024 End: 10-02-2024 ambulatory Luis Alberto Carrasco MD Work Phone: [facility] Work Phone: Start: 09-21-2024 ambulatory RUDI NKANSAH-AMANKRA Facility:[facility] Start: 09-11-2024 Non-patient / Non-visit Luis Alberto Carrasco MD Work Phone: [facility] Work Phone: Start: 09-10-2024 End: 09-10-2024 ambulatory RUDI NKANSAH-AMANKRA Facility:[facility] Start: 09-07-2024 End: 09-07-2024 ambulatory Orly J Galea [facility] [facility] Start: 09-07-2024 End: 09-07-2024 ambulatory Luis Alberto Carrasco MD Work Phone: [facility] Work Phone: Start: 09-07-2024 End: 09-07-2024 Patient encounter procedure Luis Alberto Carrasco MD Work Phone: [facility] Work Phone: Start: 09-03-2024 End: 09-05-2024 ambulatory Ainsley Rowleylizajolene Facility:[facility] Start: 09-03-2024 Emergency department patient visit rAmin Bhatia Facility:[facility] Start: 09-03-2024 End: 09-05-2024 Observation Ainsley Aki [facility] Start: 09-03-2024 End: 09-03-2024 [facility] Start: 09-03-2024 End: 09-03-2024 ambulatory [facility] Facility:[facility] Start: 09-01-2024 End: 09-01-2024 Office outpatient visit 25 minutes Jairo Baker [place] CLOTH INSPECTOR-[facility] Work Phone: [facility] Comment on above: Type 2 diabetes lisa itus with hyperglycemia, without long-term current use of insulin (Primary Dx); Edema, unspecified type; ASCVD (arteriosclerotic cardiovascular disease); BMI 40.0-44.9, adult (Multi); Hyperlipidemia, unspecified hyperlipidemia type; Essential hypertension Start: 09-01-2024 End: 09-01-2024 ambulatory [facility] Amb[facility] Start: 08-25-2024 End: 08-25-2024 Patient encounter procedure Luis Alberto Carrasco MD Work Phone: [facility] [place] Work Phone: Start: 08-25-2024 End: 08-25-2024 ambulatory Luis Alberto Carrasco MD Work Phone: [facility] Work Phone: Start: 08-25-2024 End: 08-25-2024 Office outpatient visit 25 minutes Jairo Ch CLOTH INSPECTOR-SALES APPLICATIONS ENGINEER Work Phone: [facility] Comment on above: Shortness of breath (Primary Dx); ASCVD (arteriosclerotic cardiovascular disease); Edema, unspecified type; Hyperlipidemia, unspecified hyperlipidemia type; Essential hypertension; BMI 40.0-44.9, adult (Multi); Localized edema Start: 08-25-2024 End: 08-25-2024 ambulatory [facility] Amb[facility] Start: 08-25-2024 End: 08-25-2024 ambulatory Luis Alberto Carrasco MD Work Phone: [facility] Work Phone: Start: 08-25-2024 End: 08-25-2024 Patient encounter procedure Luis Alberto Carrasco MD Work Phone: [facility] Work Phone: Start: 08-11-2024 End: 08-11-2024 Subsequent hospital visit by physician Catina Martinez Echo/Vasc Room [facility] Comment on above: ASCVD (arteriosclero tic cardiovascular disease); Edema, unspecified type; Diastolic dysfunction; Essential hypertension; Localized edema Start: 08-11-2024 End: 08-11-2024 ambulatory [facility] Start: 08-06-2024 End: 08-07-2024 ambulatory RUDI PINON Facility:[facility] Start: 08-06-2024 End: 08-07-2024 Patient encounter procedure RUDI PINON [facility] Start: 08-05-2024 End: 08-05-2024 Subsequent hospital visit by physician Catina Rios [place] Admin Room [facility] Comment on above: ASCVD (arteriosclero tic cardiovascular disease); Essential hypertension Start: 08-05-2024 End: 08-05-2024 ambulatory [facility] Start: 07-23-2024 Preoperative state Jairo Ch CLOTH INSPECTOR-SALES APPLICATIONS ENGINEER Work Phone: [facility] Work Phone: Start: 07-22-2024 End: 07-22-2024 Office outpatient visit 25 minutes Jairo Ch CLOTH INSPECTOR-SALES APPLICATIONS ENGINEER Work Phone: [facility] Comment on above: ASCVD (arteriosclero tic cardiovascular disease) (Primary Dx); Edema, unspecified type; Diastolic dysfunction; Hyperlipidemia, unspecified hyperlipidemia type; Essential hypertension; BMI 39.0-39.9,adult; Orthopnea; Pre-operative clearance Start: 07-22-2024 End: 07-22-2024 Preoperative state Jairo Ch CLOTH INSPECTOR-SALES APPLICATIONS ENGINEER Work Phone: [facility] Work Phone: Start: 07-22-2024 End: 07-22-2024 ambulatory [facility] Ambulatory Start: 07-16-2024 End: 07-16-2024 ambulatory RUDI BRIDGESCHANNING HOMEJESSICA Facility:[facility] Start: 07-01-2024 End: 07-01-2024 Patient encounter procedure Luis Alberto Carrasco MD Work Phone: [facility] [place] Work Phone: Start: 07-01-2024 End: 07-01-2024 ambulatory Luis Alberto Carrasco MD Work Phone: [facility] Work Phone: Start: 06-23-2024 End: 06-23-2024 ambulatory [facility] Work Phone: Start: 06-23-2024 End: 06-23-2024 Patient encounter procedure [facility] Work Phone: Start: 06-09-2024 End: 06-09-2024 ambulatory [facility] Work Phone: Start: 06-09-2024 End: 06-09-2024 Patient encounter procedure [facility] Work Phone: Start: 05-20-2024 Non-patient / Non-visit [facility] Work Phone: Start: 05-19-2024 Non-patient / Non-visit [facility] Work Phone: Start: 05-19-2024 End: 05-19-2024 ambulatory TIFFANIE PIEDRA Facility:[facility] Start: 05-19-2024 End: 05-19-2024 Patient encounter procedure JUSTINE PIEDRA [facility] Start: 05-12-2024 End: 05-15-2024 Telephone encounter Jr. Simone Santoyo DO Work Phone: [facility] Comment on above: Surgery Start: 05-05-2024 End: 05-05-2024 Office outpatient visit 40 minutes [facility] DO Work Phone: [facility] Comment on above: ASCVD (arteriosclero tic cardiovascular disease); S/P CABG (coronary artery bypass graft); Edema, unspecified type; Shortness of breath; Diastolic dysfunction; History of PTCA; Hyperlipidemia, unspecified hyperlipidemia type; Essential hypertension; Chronic obstructive pulmonary disease, unspecified COPD type (Multi); Former smoker; BMI 39.0-39.9,adult Start: 05-05-2024 End: 05-05-2024 ambulatory [facility] Start: 04-17-2024 ambulatory JUSTA-Nicho PIEDRA Fac ility:[facility] Start: 04-10-2024 End: 04-10-2024 Patient encounter procedure [facility] Work Phone: Start: 03-30-2024 End: 03-30-2024 Patient encounter procedure [facility] Work Phone: Start: 01-15-2024 End: 01-15-2024 Bamboo flowsheet Jr. Simone Santoyo DO Work Phone: [facility] Start: 01-15-2024 End: 01-15-2024 Bamboo flowsheet Jr. 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 SIMONE SANTOYO Not Available Start: 01-14-2024 End: 01-14-2024 ambulatory [facility] Work Phone: Start: 01-14-2024 End: 01-14-2024 Patient encounter procedure [facility] Work Phone: Start: 01-09-2024 Patient encounter procedure [facility] Start: 12-26-2023 Non-patient / Non-visit [facility] Work Phone: Start: 12-24-2023 End: 12-24-2023 ambulatory [facility] Work Phone: Start: 12-24-2023 End: 12-24-2023 Patient encounter procedure [facility] Work Phone: Start: 12-18-2023 End: 12-18-2023 ambulatory .SIMONE Not Available Start: 10-30-2023 End: 10-30-2023 ambulatory .SIMONE Not Available Start: 10-01-2023 End: 10-01-2023 ambulatory MD Luis Alberto Carrasco Work Phone: [facility] Work Phone: Start: 10-01-2023 End: 10-01-2023 Patient encounter procedure MD Luis Alberto Carrasco Work Phone: [facility] Pulmonary Disease Work Phone: Start: 09-25-2023 End: 09-25-2023 ambulatory SIMONE JEFFRIES Not Available Start: 09-24-2023 End: 09-24-2023 Office outpatient visit 25 minutes Joshua Clark MD Work Phone: [facility] Comment on above: ASCVD (arteriosclero tic cardiovascular disease) (Primary Dx); History of PTCA; Mixed hyperlipidemia; Essential hypertension; S/P CABG (coronary artery bypass graft); BMI 39.0-39.9,adult; Former smoker Start: 09-16-2023 End: 09-16-2023 ambulatory SIMONE JEFFRIES Not Available Start: 08-30-2023 Non-patient / Non-visit MD Nayeli Carrasco Work Phone: [facility] Work Phone: Start: 08-29-2023 End: 08-29-2023 ambulatory MD Luis Alberto Carrasco Work Phone: [facility] Work Phone: Start: 08-29-2023 End: 08-29-2023 Patient encounter procedure MD Luis Alberto Carrasco Work Phone: [facility] [address] Work Phone: Start: 08-26-2023 End: 08-26-2023 ambulatory [facility] Work Phone: Start: 08-26-2023 End: 08-26-2023 Patient encounter procedure [facility] Work Phone: Start: 08-20-2023 End: 08-20-2023 ambulatory MARYBETH MASON Not Available Start: 08-08-2023 End: 08-08-2023 ambulatory MARYBETH MASON Not Available Start: 07-15-2023 End: 07-15-2023 Patient encounter procedure [facility] Work Phone: Start: 07-12-2023 End: 07-12-2023 ambulatory PETER POE Not Available Start: 07-01-2023 End: 07-01-2023 ambulatory SIMONE JEFFRIES Not Available Start: 06-28-2023 End: 06-28-2023 ambulatory PETER POE Not Available Start: 06-14-2023 Chart abstracting Jr. Simone Santoyo DO Work Phone: [facility] Start: 06-11-2023 Refill Marybeth Mason SEATING UPHOLSTERER Work Phone: [facility] Comment on above: Post-op pain (Primar y Dx) Start: 06-05-2023 End: 06-05-2023 ambulatory Luis Alberto Carrasco Other [employer] Other Start: 06-05-2023 Office outpatient vi sit 15 minutes Luis Alberto Carrasco [facility] Start: 05-31-2023 End: 05-31-2023 ambulatory PETER POE Not Available Start: 03-25-2023 End: 03-25-2023 ambulatory SIMONE JEFFRIES Not Available Start: 02-19-2023 End: 02-19-2023 ambulatory Ras Mejias Other [employer] Other Start: 02-19-2023 Office outpatient vi sit 25 minutes Ras Mejias [facility] Start: 11-16-2022 Chart abstracting Peter MARR Work Phone: [facility] Start: 11-01-2022 Chart Update Luis Alberto Carrasco Work Phone: [facility] M:[employer] 250 DO Work Phone: Start: 10-31-[address] Joshua byrd [facility] Facility:[id number] Start: 10-26-2022 Telephone encounter Luis Alberto tierney Work Phone: [facility] M:[employer] 250 DO Work Phone: Start: 10-15-2022 End: 10-15-2022 ambulatory Luis Alberto Carrasco Other [employer] Other Start: 10-15-2022 Telephone encounter Luis Alberto Carrasco [facility] [employer] Start: 10-05-2022 End: 10-05-2022 ambulatory Luis Alberto Carrasco Other [employer] Other Start: 10-05-2022 Office outpatient vi sit 15 minutes Luis Alberto Carrasco [facility] Start: 09-12-2022 End: 09-12-2022 ambulatory Luis Alberto Carrasco Other [employer] Other Start: 09-12-2022 Telephone encounter Luis Alberto Carrasco [facility] Start: 08-23-2022 End: 08-23-2022 ambulatory Luis Alberto Carrasco Other [employer] Other Start: 08-23-2022 Telephone encounter Luis Alberto Carrasco [facility] Start: 08-22-2022 (Televisit) Televisit Luis Alberto Carrasco [facility] Start: 08-22-2022 End: 08-22-2022 ambulatory Luis Alberto Carrasco Other [employer] Other Start: 07-09-2022 End: 07-09-2022 ambulatory Ras Mejias Other [employer] Other Start: 07-09-2022 Office outpatient vi sit 15 minutes Ras Mejias [facility] Start: 06-05-2022 Rx Renewal Luis Alberto Carrasco Work Phone: [facility]-[place] 250 DO Work Phone: Start: 12-27-2021 End: [...] procedure MD Luis Alberto Carrasco Work Phone: [facility]Lab [address] Start: 09-04-2021 End: 09-04-2021 Patient encounter procedure MD Luis Alberto Carrasco Work Phone: [facility] Start: 09-01-2021 Office outpatient vi sit 25 minutes Luis Alberto Carrasco Work Phone: [facility] 250 DO Work Phone: Start: 08-02-2021 Telephone encounter Natalie almanzar MD Work Phone: Ophthalmology Comment on above: Appointment Start: 06-19-2021 End: 06-19-2021 Patient encounter procedure MD Luis Alberto Carrasco Work Phone: [facility] [address] Start: 04-26-2021 Rx Renewal Luis Alberto Carrasco Work Phone: [facility] 250 DO Work Phone: Start: 03-21-2021 End: 03-21-2021 ambulatory Ras Mejias Other [facility] Other Start: 03-21-2021 Office outpatient vi sit 15 minutes Ras Mejias [facility] Start: 03-21-2021 AUDIT Lui sAlberto Carrasco Work Phone: [facility] 250 DO Work Phone: Start: 02-28-2021 End: 02-28-2021 Telephone encounter Marichuy Inman MD, PhD Work Phone: Neurology Comment on above: Received Outside Med [facility] Records ([facility]) Start: 02-20-2021 Office outpatient ne w 45 minutes Lam Pelaez [facility] Start: 01-20-2021 End: 01-21-[address] LUIS ALBERTO CARRASCO Facility:[facility] Start: 11-22-2020 End: 11-22-[address] IOANA CHRISTINA Facility:[facility] Start: 04-05-2020 End: 04-06-[address] LUIS ALBERTO CARRASCO Facility:[facility] Patient encounter status Luis Alberto Carrasco Work Phone: [facility] [address] DO Work Phone: Procedures Date Procedure Procedure Detail Performing Clinician Start: 12-14-2024 Urnls dip stick/tabl et rgnt non-auto w/o micrscp Franca Henning SEATING UPHOLSTERER Work Phone: Start: 11-27-2024 Urnls dip stick/tabl et rgnt non-auto w/o micrscp Franca Henning SEATING UPHOLSTERER Work Phone: Start: 11-05-2024 MR prostate wo/w con Ma alaina Carrasco MD Work Phone: Start: 10-12-2024 Positron emission tomography Luis Alberto Carrasco MD Work Phone: Start: 10-02-2024 Screening colonoscopy Ryley Carrasco MD Work Phone: Start: 10-02-2024 Colonoscopy Joshua johnson DO Work Phone: Start: 09-03-2024 Transrectal biopsy o f prostate using ultrasound guidance RUDI PINON Start: 08-25-2024 Duplex scan of lower limb veins Luis Alberto Carrasco MD Work Phone: Start: 08-25-2024 CT angiography of thorax Luis Alberto Carrasco MD Work Phone: Start: 08-11-2024 Echo tthrc r-t 2d w/wom-mode compl spec&colr d Jairo Ch CLOTH INSPECTOR-SALES APPLICATIONS ENGINEER Work Phone: Start: 08-05-2024 Cv strs tst xers&/or rx cont ecg trcg only Jairo Ch CLOTH INSPECTOR-SALES APPLICATIONS ENGINEER Work Phone: Start: 07-23-2024 Ecg routine ecg w/le ast 12 lds w/i&r Jairo Ch CLOTH INSPECTOR-SALES APPLICATIONS ENGINEER Work Phone: Start: 07-22-2024 Follow-up visit Follow-up JAIRO Baker [facility] Start: 07-01-2024 MR prostate wo/w con Dolly Carrasco MD Work Phone: Start: 01-15-2024 Radiologic examinati on knee 1/2 views Jr. Simone Nicho Stepanic DO Work Phone: Start: 08-29-2023 Plain X-ray [...] 10-09-2021 Computerized ophthal terry imaging optic nerve Krisitn Giraldo MD Work Phone: Start: 10-09-2021 End: 10-09-2021 Post-cataract laser surgery Joel Carlos MD Work Phone: Start: 06-19-2021 Plain X-ray of bilat eral shoulders MD Luis Alberto Carrasco Work Phone: Start: 03-06-2021 Adult depression scr eening assessment Natalie Kaur MD Work Phone: Start: 07-18-2019 Lipid 1996 panel - S bubba or Plasma Joshua Clark MD Work Phone: Appendectomy Luis Alberto Carrasco Work Phone: Appendectomy JUSTINE PIEDRA Arthroscopy of knee JUSTINE PIEDRA Cardiac catheterization Isra Carrasco Work Phone: Cardiac catheterization AARTI PEMA PIEDRA Colonoscopy Luis Alberto Carrasco Work Phone: Comment on above: [id number]; Coronary artery bypa ss graft Luis Alberto Carrasco Work Phone: Comment on above: [id number]; Coronary artery bypa ss graft JUSTINE PIEDRA Comment on above: Outside Source Comme nt: Comment on above: [id number]; Decompression of med anjum nerve JUSTINE PIEDRA History of coronary artery bypass grafting S/P CABG (coronary artery bypass graft) Luis Alberto Carrasco Work Phone: Comment on above: [id number]; History of coronary artery bypass grafting Hx of CABG MD Luis Alberto Carrasco Work Phone: History of coronary artery bypass grafting S/P CABG (coronary artery bypass graft) Joshua Clark MD Work Phone: History of coronary artery bypass grafting S/P CABG (coronary artery bypass graft) Joshua Dill DO Work Phone: History of coronary artery bypass [...] of PTCA Joshua Dill DO Work Phone: History of tonsillectomy CANDY PIEDRA Percutaneous translu larissa coronary angioplasty Luis Alberto Carrasco Work Phone: Percutaneous translu larissa coronary angioplasty JUSTINE PIEDRA Procedure on neck JUSTINE FIELDS Plan of Treatment Date Care Activity Detail Author Start: 10-02-2034 Screening for malignant neoplasm of colon [facility] Start: 09-04-2027 Diabetes Screening Diabetes Screening [facility] Start: 12-30-2026 RSV Vaccine (1 - 1-dose 75+ series) RSV Vaccine (1 - 1-dose 75+ series) [facility] Start: 01-03-2026 End: 01-03-2026 Patient encounter procedure 01/03/2026 1:00 PM EDT Office Visit [facility] [address] [place] [address] Jairo Ch, CLOTH INSPECTOR-SALES APPLICATIONS ENGINEER [address] [place] [address] [facility] Start: 08-11-2025 Echocardiography Echocardiogram [facility] Start: 01-04-2025 Influenza vaccination [facility] Start: 11-03-2024 [facility] Start: 11-03-2024 [facility] Start: 10-20-2024 End: 10-20-2024 Patient encounter procedure 10/20/2024 10:00 AM EDT Office Visit Radiation Oncology [address] [place] [address] Angeles Rushing MD [address] [place] [address] [facility] Comment on above: [facility] Start: 10-12-2024 Positron emission tomography PET psma initial tx sb-mt [facility] Start: 10-12-2024 PT Skull base to mid-thigh [facility] Start: 10-02-2024 [facility] Start: 09-22-2024 End: 09-22-2024 Patient encounter procedure 09/22/2024 2:10 PM EDT Office Visit [facility] [address] [place] [address] Joshua Dill DO [address] [place] [address] [facility] Start: 09-01-2024 End: 09-01-2024 Patient encounter procedure 09/01/2024 8:00 AM EDT Office Visit [facility] [address] [place] [address] Jairo Ch, CLOTH INSPECTOR-SALES APPLICATIONS ENGINEER [address] [place] [address] [facility] Start: 08-25-2024 Duplex scan of lower limb veins US venous duplex LE LT [facility] Start: 08-25-2024 US Lower extremity vein - left [facility] Start: 08-25-2024 End: 08-25-2025 Basic metabolic 2000 panel - Serum or Plasma Basic Metabolic Panel Lab Routine Shortness of breath Edema, unspecified type Expected: 08/25/2024 (Approximate), Expires: 08/25/2025 [facility] Work Phone: Comment on above: Expected: 08/25/2024 (Approximate), Expi res: 08/25/2025 Start: 08-25-2024 End: 08-25-2025 Creatinine [Mass/volume] in Serum or Plasma Creatinine, Serum Lab Routine Shortness of breath ASCVD (arteriosclerotic cardiovascular disease) Edema, unspecified type Expected: 08/25/2024 (Approximate), Expires: 08/25/2025 [facility] Work Phone: Comment on above: Expected: 08/25/2024 (Approximate), Expi res: 08/25/2025 Start: 08-25-2024 End: 08-25-2025 CT Chest W contrast IV and CT angiogram Pulmonary arteries for pulmonary embolus W contrast IV CT angio chest for pulmonary embolism Imaging STAT Shortness of breath Edema, unspecified type Expected: 08/25/2024 (Approximate), Expires: 08/25/2025 [facility] Work Phone: Comment on above: Expected: 08/25/2024 (Approximate), Expi res: 08/25/2025 Start: 08-25-2024 End: 08-25-2025 Natriuretic peptide B [Mass/volume] in Blood B-Type Natriuretic Peptide Lab Routine Shortness of breath Edema, unspecified type Expected: 08/25/2024 (Approximate), Expires: 08/25/2025 [facility] Work Phone: Comment on above: Expected: 08/25/2024 (Approximate), Expi res: 08/25/2025 Start: 08-25-2024 End: 08-25-2024 Patient encounter procedure 08/25/2024 2:00 PM EDT Office Visit [facility] [address] [place] [address] Jairo Ch, CLOTH INSPECTOR-SALES APPLICATIONS ENGINEER [address] [place], [place] [id number] [facility] Start: 08-25-2024 Patient referral [facility] Work Phone: Start: 08-25-2024 End: 08-25-2026 Vascular US Lower Extremity Venous Duplex Left Vascular US Lower Extremity Venous Duplex Left Vascular Ultrasound STAT Edema, unspecified type Localized edema Expected: 08/25/2024 (Approximate), Expires: 08/25/2026 [facility] Service Area Work Phone: Comment on above: Expected: 08/25/2024 (Approximate), Expi res: 08/25/2026 Start: 08-11-2024 End: 08-11-2024 Patient encounter procedure 08/11/2024 12:30 PM EDT Appointment [place] [id number] [facility] [address] [place] [id number] [facility] Start: 08-05-2024 End: 08-05-2024 Patient encounter procedure 08/05/2024 10:15 AM EDT Appointment Kenna Hartman [address] [facility] [place] [address] Kenna Hartman Start: 08-05-2024 End: 08-05-2024 Patient encounter procedure Kenna Hartman Start: 07-22-2024 End: 07-22-2025 Basic metabolic 2000 panel - Serum or Plasma Basic Metabolic Panel Lab Routine Edema, unspecified type Diastolic dysfunction Expected: 07/22/2024 (Approximate), Expires: 07/22/2025 [facility] Service Area Work Phone: Comment on above: Expected: 07/22/2024 (Approximate), Expi res: 07/22/2025 Start: 07-22-2024 End: 07-22-2025 Natriuretic peptide B [Mass/volume] in Blood B-Type Natriuretic Peptide Lab Routine Edema, unspecified type Diastolic dysfunction Orthopnea Expected: 07/22/2024 (Approximate), Expires: 07/22/2025 [facility] Work Phone: Comment on above: Expected: 07/22/2024 (Approximate), Expi res: 07/22/2025 Start: 07-22-2024 End: 07-22-2025 NM Heart Perfusion W stress and W radionuclide IV Nuclear Stress Test Cardiac Nuclear Medicine Routine ASCVD (arteriosclerotic cardiovascular disease) Essential hypertension Expected: 07/22/2024 (Approximate), Expires: 07/22/2025 [facility] Work Phone: Comment on above: Expected: 07/22/2024 (Approximate), Expi res: 07/22/2025 Start: 07-22-2024 End: 07-22-2026 US Heart Transthoracic Transthoracic Echo Complete Echocardiography Routine ASCVD (arteriosclerotic cardiovascular disease) Edema, unspecified type Diastolic dysfunction Essential hypertension Expected: 07/22/2024 (Approximate), Expires: 07/22/2026 [facility] Work Phone: Comment on above: Expected: 07/22/2024 (Approximate), Expi res: 07/22/2026 Start: 05-19-2024 End: 05-05-2025 Basic metabolic 2000 panel - Serum or Plasma Basic Metabolic Panel Lab Routine Edema, unspecified type Expected: 05/19/2024 (Approximate), Expires: 05/05/2025 [facility] Service Area Work Phone: Comment on above: Expected: 05/19/2024 (Approximate), Expi res: 05/05/2025 Start: 05-06-2024 Advance Directive Discussion Advance Directive Discussion [facility] Start: 01-15-2024 End: 01-15-2024 Patient encounter procedure 01/15/2024 1:00 PM EDT Office Visit [facility] [address] [place] [address] Jr. Simone Santoyo, DO [address] [place] [address] Arrived [facility] Comment on above: Arrived Start: 01-05-2024 COVID-19 Vaccine ( season) COVID-19 Vaccine ( season) [facility] Start: 01-05-2024 Influenza vaccination [facility] Start: 11-21-2023 Lipid panel [facility] Start: 06-28-2023 End: 06-28-2023 Patient encounter procedure 06/28/2023 9:00 AM EST Office Visit [facility] [address] [place] [address] Peter Poe PA [address] [place] [address] [facility] Start: 06-14-2023 End: 06-14-2023 Patient encounter procedure 06/14/2023 11:30 AM EST Procedure Visit [facility] Jr. Simone Santoyo, DO [address] [place] [address] [facility] Start: 04-17-2023 FUV, Provider: Joshua Clark, Status: Pen, Time: 3:30 PM FUV, Provider: Joshua Clark, Status: Pen, Time: 3:30 PM [facility] DO Work Phone: Start: 01-04-2023 COVID-19 Vaccine ( season) COVID-19 Vaccine ( season) [facility] Start: 10-31-2022 STRESS NUC, Provider: MICHELLE HHVI NUCLEAR 01,[id number], Status: Pen, Time: 12:30 PM STRESS NUC, Provider: MICHELLE HHVI NUCLEAR 01,[id number], Status: Pen, Time: 12:30 PM [facility] 250 DO Work Phone: Start: 08-03-2022 FUV, Provider: Joshua Calrk, Status: Pen, Time: 1:40 PM FUV, Provider: Joshua Clark, Status: Pen, Time: 1:40 PM -[facility] DO Work Phone: Start: 05-11-2022 FUV, Provider: Joshua Clark, Status: Pen, Time: 2:10 PM FUV, Provider: Joshua Clark, Status: Pen, Time: 2:10 PM -[facility] DO Work Phone: Start: 03-06-2022 Adult depression screening assessment DEPRESSION SCREENING [facility] Start: 01-04-[address] [facility] Start: 06-19-2021 FUV, Provider: Joshua Clark, Status: Pen, Time: 8:00 AM FUV, Provider: Joshua Clark, Status: Pen, Time: 8:00 AM -[facility] DO Work Phone: Start: 06-07-2021 FUV, Provider: Joshua Clark, Status: Pen, Time: 2:30 PM FUV, Provider: Joshua Clark, Status: Pen, Time: 2:30 PM [facility] DO Work Phone: Start: 05-06-2021 ADVANCE DIRECTIVE DISCUSSION ADVANCE DIRECTIVE DISCUSSION [facility] Start: 01-04-2021 Influenza vaccination INFLUENZA (#1) [facility] Start: 11-21-2019 Creatinine measurement Creatinine Level [facility] Start: 11-21-2019 Lipid panel Lipid Panel [facility] Start: 11-21-2019 Potassium measurement Potassium Level [facility] Start: 12-30-2016 Abdominal aortic aneurysm screening Abdominal Aortic Aneurysm (AAA) Screening [facility] Start: 12-30-2016 ADVANCE DIRECTIVE DISCUSSION ADVANCE DIRECTIVE DISCUSSION [facility] Start: 12-30-2016 PNEUMOCOCCAL: 65+ (1 - PCV) PNEUMOCOCCAL: 65+ (1 - PCV) [facility] Start: 12-30-2016 PNEUMOVAX AGE 65 AND OVER WITH 5YR LOOKBACK (#1) PNEUMOVAX AGE 65 AND OVER WITH 5YR LOOKBACK (#1) [facility] Start: 2011 RSV High Risk: (Elderly (60+) or Population) (1 - Risk 60-74 years 1-dose series) RSV High Risk: (Elderly (60+) or Population) (1 - Risk 60-74 years 1-dose series) [facility] Start: 2011 RSV patients and/or patients aged 60+ years (1 - 1-dose 60+ series) RSV patients and/or patients aged 60+ years (1 - 1-dose 60+ series) [facility] Start: 12-30-2001 SHINGRIX VACCINE (1 of 2) SHINGRIX VACCINE (1 of 2) [facility] Start: 12-30-2001 Zoster Vaccines (1 of 2) Zoster Vaccines (1 of 2) [facility] Start: 12-30-1996 COLOGUARD (FIT-DNA) COLOGUARD (FIT-DNA) [facility] Start: 12-30-[address] [facility] Start: 12-30-1996 COLORECTAL CANCER SCREENING COLORECTAL CANCER SCREENING [facility] Start: 12-30-[address] [facility] Start: 12-30-1996 DIABETES SCREEN DIABETES SCREEN [facility] Start: 12-30-1996 FECAL OCCULT BLOOD FECAL OCCULT BLOOD [facility] Start: 12-30-1996 Screening for malignant neoplasm of colon [facility] Start: 12-30-[address] [facility] Start: 12-30-1986 LIPID SCREEN LIPID SCREEN [facility] Start: 12-30-1973 DTaP/Tdap/Td Vaccines (1 - Tdap) DTaP/Tdap/Td Vaccines (1 - Tdap) [facility] Start: 12-30-[address] [facility] Start: 12-30-1969 Anxiety Screening Anxiety Screening [facility] Start: 12-30-1969 Depression Screening Depression Screening [facility] Start: 12-30-1969 Diabetes mellitus screening Diabetes Screening [facility] Start: 12-30-1969 HEPATITIS C SCREENING HEPATITIS C SCREENING [facility] Start: 12-30-1969 Hepatitis C screening Hepatitis C Screening [facility] Start: 1963 Adult depression screening assessment DEPRESSION SCREENING [facility] Start: 1963 COVID-19 VACCINE (1) COVID-19 VACCINE (1) [facility] Start: 12-30-1961 Glaucoma screening Diabetes: Retinopathy Screening [facility] Start: 12-30-1956 COVID-19 VACCINE (#1) COVID-19 VACCINE (#1) [facility] Start: 12-30-1956 COVID-19 VACCINE (1) COVID-19 VACCINE (1) [facility] Start: 12-30-1952 MMR Vaccines (1 of 1 - Standard series) MMR Vaccines (1 of 1 - Standard series) [facility] Start: 07-02-1952 COVID-19 VACCINE (#1) COVID-19 VACCINE (#1) [facility] Start: 1950 ABDOMINAL AORTIC ANEURYSM SCREENING ABDOMINAL AORTIC ANEURYSM SCREENING [facility] Start: 1951 Abdominal aortic aneurysm screening Abdominal Aortic Aneurysm Screening [facility] Start: 1951 Hemoglobin A1c measurement Diabetes: Hemoglobin A1C [facility] Start: 1950 Medicare Annual Wellness Visit Medicare Annual Wellness Visit (AWV) [facility] Start: 1950 Screening for malignant neoplasm of colon [facility] Start: 1950 Urine screening for protein Diabetes: Urine Protein Screening [facility] Comprehensive metabo lic 1999 panel - Serum or Plasma [facility] Comprehensive metabo lic 1999 panel - Serum or Plasma [facility] CT with contrast for radiotherapy planning [facility] ECG 12 Lead ECG 12 Lead ECG Routine Pre-operative clearance 07/23/2024 12:44 PM EDT [facility] Work Phone: Glucose measurement estimated from glycated hemoglobin [facility] Work Phone: Hemoglobin A1c/Hemoglobin.total in Blood [facility] Work Phone: Microalbumin [Mass/volume] in Urine [facility] MR Prostate WO and W contrast IV [facility] Patient Education [facility] Work Phone: Patient referral [facility] Work Phone: XR Wrist - left GE 3 Views [facility] Immunizations Immunization Date Immunization Notes Care Provider Fa reta 02-18-2022 influenza virus vaccine, unspecified formulation Joshua Clark MD Work Phone: [facility] Work Phone: 02-18-2022 influenza, high dose seasonal, preservative-free Luis Alberto Carrasco Work Phone: [place] [address] DO Work Phone: Comment on above: Series: 02-13-2022 influenza virus vaccine, split virus (incl. purified surface antigen) Ras Mejias Other [employer] [facility] [employer] Other 02-13-2022 influenza virus vaccine, unspecified formulation [facility] 05-06-2017 pneumococcal polysaccharide vaccine, 23 valent Luis Alberto Carrasco Work Phone: [facility] 250 DO Work Phone: 01-22-2017 pneumococcal conjuga te vaccine, 13 valent Luis Alberto Carrasco Work Phone: [facility] 250 DO Work Phone: 02-11-2015 influenza virus vaccine, unspecified formulation Luis Alberto E Carrasco Work Phone: [facility] 250 DO Work Phone: 02-03-2015 seasonal influenza, intradermal, preservative free Luis Alberto Espinoza Carrasco Work Phone: [facility] 250 DO Work Phone: 04-27-2014 influenza, injectabl e, quadrivalent, contains preservative Luis Alberto Espinoza Carrasco Work Phone: [facility] 250 DO Work Phone: 03-16-2014 influenza virus vaccine, unspecified formulation Luis Alberto E Carrasco Work Phone: [facility] 250 DO Work Phone: 02-03-2013 influenza virus vaccine, unspecified formulation Luis Alberto Espinoza Carrasco Work Phone: [facility] 250 DO Work Phone: 02-03-2013 influenza virus vaccine, whole virus Luis Alberto Espinoza Carrasco Work Phone: [facility] 250 DO Work Phone: 02-03-2013 influenza, seasonal, injectable Jr. Stepanic DO Work Phone: [facility] 02-09-2009 influenza virus vaccine, whole virus Luis Alberto Espinoza Carrasco Work Phone: [facility] 250 DO Work Phone: 02-04-2008 pneumococcal polysaccharide vaccine, 23 valent Luis Alberto E Carrasco Work Phone: [facility] 250 DO Work Phone: 02-02-2005 pneumococcal polysaccharide vaccine, 23 valent Luis Alberto E Carrasco Work Phone: [facility] 250 DO Work Phone: influenza virus vaccine, unspecified formulation Luis Alberto E Carrasco Work Phone: [facility] 250 DO Work Phone: Comment on above: 2011 2009 2007 Payers Date Payer Category Payer Self-pay [id number] 2024 Unknown [id number] 2022 Medicare (Managed Care) 1.2. [id number] 2022 Unknown 2021 Medicare DEVOTED MEDICARE DEVOTED HEALTH [id number] 2021-Present [phone] [address] [place] [address] O [id number] 2021 Medicare [id number] 2021 Private Health Insurance DEVOTED HEALTH MT HMO [id number] 2021 Unknown [id number] 2.16.840.1.598497.19 2020 Unknown MMO MMO MEDICARE SUPPLEMENT [id number] 2020-Present Indemnity [id number]. [id number] 2006 Medicare MEDICARE MEDICAR E A AND B [id number] 2006-Present [place] Medicare [id number]. [id number] 1959 Medicare [id number] 1959 Unknown [id number] 1951 Unknown [id number] 2.16.840.1.052491.3.579.2. 593 1951 Unknown [id number] 2.16.840.1.650253.3.579.2. 593 1951 Unknown [id number] 2.16.840.1.845205.3.579.2. 593 1951 Unknown [id number] 2.16.840.1.637585.3.579.2. 1068 1951 Unknown [id number] 2.16.840.1.804503.3.579.2. 1259 1951 Unknown [id number] 2.16.840.1.244231.3.579.2. 1259 1951 Unknown [id number] 2.16.840.1.544701.3.579.2. 1259 1951 Unknown [id number] 2.16.840.1.292055.3.579.2. 1259 1951 Unknown [id number] 2.16.840.1.720033.3.579.2. 1259 1951 Unknown [id number] 2.16.840.1.278500.3.579.2. 1259 1951 Unknown [id number] 2.16.840.1.811010.3.579.2. 1259 1951 Unknown [id number] 2.16.840.1.312991.3.579.2. 1259 1951 Unknown [id number] 2.16.840.1.459647.3.579.2. 1259 1951 Unknown [id number] 2.16.840.1.951798.3.579.2. 1259 1951 Unknown [id number] 2.16.840.1.778887.3.579.2. 1259 1951 Unknown [id number] 2.16.840.1.936385.3.579.2. 1259 1951 Unknown [id number] 2.16.840.1.849923.3.579.2. 1259 1951 Unknown [id number] 2.16.840.1.464855.3.579.2. 727 1951 Unknown [id number] 2.16.840.1.239364.3.579.2. 72 1951 Unknown [id number] 2.16.840.1.568162.3.579.2. 72 1951 Unknown [id number] 2.16.840.1.287451.3.579.2. 124 1951 Unknown [id number] 2.16.840.1.515112.3.579.2. 124 1951 Unknown [id number] 2.16.840.1.863189.3.579.2. 1245 1951 Unknown [id number] 2.16.840.1.444845.3.579.2. 124 1951 Unknown [id number] 2.16.840.1.752231.3.579.2. 124 1951 Unknown [id number] 2.16.840.1.141205.3.579.2. 124 1951 Unknown [id number] 2.16.840.1.773539.3.579.2. 727 1951 Unknown [id number] 2.16.840.1.595348.3.579.2. 727 1951 Unknown [id number] 2.16.840.1.801987.3.579.2. 727 1951 Unknown [id number] 2.16.840.1.154288.3.579.2. 727 1951 Unknown [id number] 2.16.840.1.575595.3.579.2. 727 1951 Unknown [id number] 2.16.840.1.457451.3.579.2. 727 1951 Unknown [id number] 2.16.840.1.570516.3.579.2. 727 1951 Unknown [id number] 2.16.840.1.096145.3.579.2. 727 1951 Unknown [id number] 2.16.840.1.840921.3.579.2. 72 1951 Unknown [id number] 2.16.840.1.205123.3.579.2. 727 1951 Unknown [id number] 2.16.840.1.961160.3.579.2. 727 1951 Unknown [id number] 2.16.840.1.303783.3.579.2. 727 1951 Unknown [id number] 2.16.840.1.463327.3.579.2. 1244 1951 Unknown [id number] 2.16.840.1.684257.3.579.2. 1244 1951 Unknown [id number] 2.16.840.1.336066.3.579.2. 1244 1951 Unknown [id number] 2.16.840.1.693591.3.579.2. 1244 1951 Unknown [id number] 2.16.840.1.799982.3.579.2. 1244 Medicare Medicare [id number] Unknown [id number] Unknown [id number] Unknown [id number] Unknown [id number] 2.16.840.1.877473.3.579.2. 531 Unknown [id number] 2.16.840.1.598150.3.579.2. 531 Unknown [id number] 2.16.840.1.222885.3.579.2. 531 Social History Date Type Detail Facility Tobacco smoking status [facility] Unknown if ever smoked [employer] Other Start: 1950 Sex Assigned At Not on file [facility] Start: 03-31-2021 End: 11-03-2024 Tobacco smoking status ALIS Ex-smoker [facility] Start: 04-09-2020 End: 05-06-2008 History of tobacco use Current smoker [facility] Start: 03-31-2021 End: 09-24-2023 Tobacco use and exposure Smokeless tobacco non-user [facility] Start: 03-31-2021 End: 12-29-2024 Alcohol intake Current drinker of alcohol (finding) [facility] Start: 03-06-2021 End: 04-12-2023 History SDOH Alcohol Comment occasionally [facility] Start: 03-25-2023 End: 12-29-2024 No illicit drug use No illicit drug use [facility] Comment on above: 1-2 cups of coffee d aily; occasionally; quit 2008; Start: 1950 Sex Assigned At Male F [facility] Start: 03-25-2023 End: 12-29-2024 Sex Assigned At [facility] End: 05-06-2008 History of tobacco use Cigarette Smoker [facility] Start: 06-16-2023 Tobacco Comment Quit smoking > 10 years ago. [facility] Start: 09-14-2023 End: 09-01-2024 Exposure to SARS-CoV-2 (event) Not sure [facility] Start: 07-08-2023 Gender identity Identifies as male gender (finding) [facility] Tobacco quit 2009 Tobacco Use:. [facility] Tobacco smoking status [facility] Start: 06-09-2024 End: 10-13-2024 Sex Male (finding) [facility] Start: 03-31-2022 Adult Depression Screening Assessment 3 [facility] Medical Equipment Procedure Code Equipment Code Equipment Origin al Text Equipment Identifier Dates Cystoscopy with insertion of fiducial markers and hydrogel rectal spacer Radiotherapy protection spacer [id number] FDA Start: 11-03-2024 Cystoscopy with insertion of fiducial markers and hydrogel rectal spacer Imaging lesion localization marker, implantable [id number] FDA Start: 11-03-2024 Goals Date Patient Goal Desired Activity /State Functional Status Date Assessment Result Facility 09-04-2024 Functional Status No [facility] 09-03-2024 Functional Status [facility] 08-25-2024 Functional Status No [facility] 05-19-2024 Functional Status N/A [facility] Clinical Notes 01-20-2021 to 12-29-2024 Joshua Dill, DO - 12/29/2024 11:10 AM EDTPatient Instructions Note Date & Type Note Facility 12-29-2024 History of Present illness Narrative Chief Complaint Patient presents with Follow-up 6 months ASCVD (arteriosclerotic cardiovascular disease)francine Nichols SrJessica is a 73 y.o. male 73-year-old gentleman returns for 6-month cardiovascular follow-up, undergoing radiation therapy for stage III prostate cancer and doing well otherwise. He is down 20+ pounds over the past year. He denies any cardiovascular events, complaints or nitrate usage or hospitalizations. Former patient of Dr. Clark's who I am now following on a routine basis, no clinical complaints or events as noted above. He has a history of CABG details of my last heart catheterization noted: Patient has a history of remote CABG, heart catheterization performed electively by myself in 2019 revealed patent LLAMAS-LAD and SVG-diagonal, patent emmonak ramus branch (occluded graft to the ramus and (an occluded second OM branch that fills via left to left collaterals (occluded vein graft to the OM 2) and chronic subtotal occlusion of the nondominant RCA with preserved LV function overall. Subsequently, in 2022 he underwent stress perfusion imaging that was completely normal with normal ejection fraction. Recommendations: Obtain lipid panel, follow-up again in 1 year with SEATING UPHOLSTERER Review of Systems Neurological: Positive for dizziness. All other systems reviewed and are negative. Vitals: 12/29/24 1126 BP: 106/58 BP Location: Left arm Patient Position: Sitting Pulse: 68 Weight: 94.8 kg (209 lb) Height: 1.6 m (5' 3 ) Objective Physical Exam Constitutional: Appearance: Normal [...] Judgment: Judgment normal. Allergies Morphine, Ranolazine, Spironolactone, Kqocblr-hcv-fzl reductase inhibitors, and Fentanyl Current Medications Current Outpatient Medications Medication Instructions albuterol-budesonide (Airsupra) 90-80 mcg/actuation inhaler 2 puffs, Every 6 hours PRN albuterol 2.5 mg, Every 4 hours PRN aspirin 81 mg EC tablet 1 tablet, Daily atorvastatin (LIPITOR) 40 mg, oral, Nightly bimatoprost (Lumigan) 0.03 % ophthalmic solution 1 drop, Nightly clopidogrel (PLAVIX) 75 mg, oral, Daily docusate sodium (COLACE) 100 mg, 2 times daily PRN isosorbide mononitrate ER (IMDUR) 120 mg, oral, Daily lisinopriL-hydrochlorothiazide 10-12.5 mg tablet 1 tablet, oral, Daily metoprolol succinate XL (TOPROL-XL) 25 mg, oral, Daily nitroglycerin (Nitrostat) 0.[address] under the tongue. omeprazole (PRILOSEC) 20 mg, Daily potassium chloride CR (Klor-Con) 10 mEq ER tablet 10 mEq, oral, Daily, Do not crush, chew, or split. tamsulosin (FLOMAX) 0.4 mg, Daily torsemide (DEMADEX) 20 mg, oral, Daily Assessment/Plan 1. ASCVD (arteriosclerotic cardiovascular disease) Follow Up In Cardiology 2. Diastolic dysfunction 3. Hyperlipidemia, unspecified hyperlipidemia type 4. Essential hypertension 5. Prostate cancer (Multi) 6. S/P CABG (coronary artery bypass graft) 7. BMI 37.0-37.9, adult 8. Former smoker Scribe Attestation By signing my name below, [...] discussion and plan. documented in this encounter [facility] Work Phone: 12-29-2024 Instructions Mavis Henry RN - 12/29/2024 11:10 AM EDT Please bring all medicines, vitamins, and herbal supplements with you when you come to the office. Prescriptions will not be filled unless you are compliant with your follow up appointments or have a follow up appointment scheduled as per instruction of your physician. Refills should be requested at the time of your visit. BMI was above normal measurement. Current weight: 94.8 kg (209 lb) Weight change since last visit (-) denotes wt loss -19 lbs Weight loss needed to achieve BMI 25: 68.2 Lbs Weight loss needed to achieve BMI 30: 40 Lbs Provided instructions on dietary changes Provided instructions on exercise. documented in this encounter [facility] Work Phone: 10-19-2024 Evaluation note Diagnosis Onset Date Resolution Prostate cancer acute October 10:18am Class 3 severe obesity with body mass index (BMI) of 40.0 to 44.9 in adult acute October 22, 2024 10:15am Dermatitis acute October 22 10:15am Morbid (severe) obesity due to excess calories acute October 22, 2024 10:15am Prostate cancer acute October 10:15am Prostate cancer acute December 282024 10:49am [facility] Work Phone: [phone]) 334-372606-05-2025 Telephone encounter Note* Telephone Encounter - Haven Lilly - 10/08/2024 3:00 PM EDT Víctor states he is getting a PSMA on 10/13/24 so he wanted to come after that way. So Víctor is scheduled on 10/20/24 at 10:[address] Nazanin De La Rosa PSS [facility]06-05-2025 Miscellaneous Notes* Telephone Encounter - Haven Lilly - 10/08/2024 3:00 PM EDT Víctor states he is getting a PSMA on 10/13/24 so he wanted to come after that way. So Víctor is scheduled on 10/20/24 at 10:[address] Nazanin De La Rosa PSS * Telephone Encounter - Dora Naqvi RN - 10/08/2024 2:46 PM EDT PSS: please schedule consult with Dr. Rushing -diagnosis Prostate cancer. Dr. Piedra is the referring physician. Patient is expecting our call. Thanks Dora Naqvi RN [facility] Telephone encounter Note * Telephone Encounter - Dora Naqvi RN - 10/08/2024 2:46 PM EDT PSS: please schedule consult with Dr. Rushing -diagnosis Prostate cancer. Dr. Piedra is the referring physician. Patient is expecting our call. Thanks Dora Naqvi RN [facility]06-04-2025 Instructions* Patient Instructions* Camelia Piedra MD - 10/07/2024 1:26 PM EDT Robotic Radical Prostatectomy: What to Expect This handout will tell you what to expect when having a robotic radical prostatectomy. If you have any questions after reading this, speak with your doctor or nurse. What is robotic radical prostatectomy and why is it done? Robotic radical prostatectomy is surgery to remove your prostate gland. A few small cuts are made in your belly. Small cameras and surgical tools are put in to your body through the cuts (also calledlaparoscopic surgery). A robotic system controlled by your surgeon is used to perform the surgery. This type of surgery is most often done to remove a prostate gland that has cancer. Before your surgery A pre-surgery packet will be mailed to you. The packet contains info about your hospital stay and other things to know. You will get a call from a jira developer with your surgery date. The jira developer will also tell you the day, time and place of your pre-admission testing visit. Stop taking blood thinning meds (medicines) such as: Coumadin Heparin Plavix Aspirin Ibuprofen (such as Advil and Motrin ) Naproxen (such as Aleve ) Call the doctor who orders these meds as soon as you know your surgery date. Tell the doctor: The date you are having surgery That you need to stop taking your blood thinners for 7 to 10 days before surgery. Write down your doctor s orders for stopping and re-starting blood thinners. Bring this with you toyour pre-admission testing visit so it can be entered into your electronic medical record. Make plans for someone to drive you home on discharge day and to stay with you once you are home. Your dedicated local truck driver will need to be at the hospital by 9:30am on the day you go home. For your safety, someone must stay with you for 2 to 3 days after you come home to help with your daily needs. Pre-Admission Testing. Before surgery you will have an exam by a preoperative medicine doctor. Savanna let you know the location this appointment. Things to bring to pre-admission testing are: Up to date list of meds you take that includes; Prescription meds, Over the counter meds, Vitamins,minerals, herbs, supplements Info about your health history such as; Current and past health problems, Surgeries and treatments you have had, Family history of health problems Advanced Directives such as a Living Will or Durable Healthcare Power of Development Scientist The Pre-admission testing visit will take at least 2 hours, maybe longer. Your surgery time. You will get a call with your surgery time by 4 pm the day before your surgery. The night before surgery. Do not eat or drink anything after 12 midnight the night before surgery. This includes chewing gum or eating hard candy. As of midnight you will be fasting. If you eat or drink after midnight your surgery may be cancelled. The day of your surgery You may be told to take one or more of your meds the morning of surgery. Take these meds with the smallest sips of water you can. Your stomach should be as empty as it can be before surgery. This helps prevent an upset stomach and throwing up while under anesthesia. Come to the hospital 2 hours before your scheduled surgery time. Do not wear contact lenses on surgery day. Leave items of value at home and wear comfortable clothes. Bring your insurance card and photo ID with you. Drive up to the [facility] main entrance at [address] [place] [address] The Admitting desk will check you in and direct you to the surgery waiting room. In the pre-op area you will change into a hospital gown. An IV will be placed in your arm. You willalso sign a consent form for surgery if you have not done this in the office prior. While in surgery you be given meds to make you sleep. A tube will be placed in your throat. This isto protect your airway and make sure you get enough oxygen. Surgery will take about?4 hours. Family and friends will wait in the surgery waiting room. Your family will be updated approzimatelyevery 2 hours about how you are doing in surgery. Your surgeon will speak with your family either by telephone or in the waiting room as soon as surgery is over. After surgery is over you will go to the post-op recovery room. The breathing tube will have been removed from your throat. Then you will be awakened from anesthesia. You will spend at least 2 hours in the recovery room. Once you are awake you will be taken to a hospital floor. You will stay in the hospital for about 1day (although the occasional patient may have to stay 2 nights). While you are in the hospital Your blood will be drawn and checked after surgery.?Vital signs will be taken often. This includes blood pressure, temperature, oxygen level and heart rate. You will be given meds to control pain. Your nurse will check your pain level often. Use your call button to let your nurse know if are having pain. You will slowly be allowed to eat food. After surgery you will have clear liquids only. Little by little you will be given normal food to eat, as you are able. You may have swelling, fullness or tightness, called bloating in your belly area after surgery. Getting out of bed and walking. The day of surgery you will be helped into a chair.You will sit in a chair, walk in the room, or walk in the hallways with help, as you are able. Walking will help your bowels work better after surgery. This can help belly bloating go away. Walking also helps preventblood clots from forming in your legs. Using the incentive spirometer. You will be given a small device called an Incentive Spirometer. It is designed to exercise your lungs to prevent pneumonia after surgery. Your nurse will show you how to use it. Do the exercises 10 times each hour you are awake. Special sleeves called SCD s (sequential compression devices) will be wrapped around your legs. SCD s are designed to help prevent blood clots from forming in your veins. They should only be taken off if you are walking or bathing. You may also receive a shot each day from your nurse that contains a blood thinner to help prevent blood clots. The urology doctor bronc breaker or nurse practioner will see you each day. The doctors often come by very early in the morning. Your nurse will give you a notepad to write down questions for the doctors. On some occasions you will go home with a surgical drain called a João-Gil or JI drain. The drain is used to keep blood and fluid from building up after surgery. See section Taking Care of Your Drain for info about caring for and emptying your drain. Write down the amount of fluid that comes out of your drain each day. The drain will be removed when the outputs are low and it is safe to do so. You will go home with a tube in your bladder called a Allan catheter. This tube will drain urine into a bag. You will go home with a small leg bag and a larger overnight bag. The tube must stay in for 7 to 10 days after surgery or until you are fully healed. Info about caring for your urine tube isfound on subsequent pages. After you leave the hospital Supplies to have a home: Large throw away waterproof pads to protect bed linen 4 inch x 4 inch square gauze pads to absorb drainage from the wound site About activities: Slowly increase your activity. Take walks at least 2 to 3 times a day. Increase the distance you walk little by little. Rest when you feel tired and take naps during the day if needed. Feeling tired after surgery is normal and should go away in a few weeks. You can climb stairs. You may need help at first so go slow. You can take a shower. You may get the surgery wounds wet. Wash the wounds gently with soapy water.Dry gently by patting with a soft towel. Do not soak in a tub or take a bath while the urine tube and JI drain are in. Wear loose fitting clothes for comfort while the urine tube is in and for bloating after surgery. Do Kegel exercises to strengthen your pelvic muscles. This will help you have better urine control.See the handout Kegel Exercises to learn how to do these. Do not: Sit for more than 45 minutes at a time. Alter between standing, sitting and lying down. This will help decrease pressure in the area between your scrotum and anus. ? Do not do active exercise for at least 6 weeks after your surgery or until your surgeon says you can. Pull or push heavy items such as boxes or the vacuum furnace cleaner. Heavy items are things that weigh more than 10 pounds. Lift more than 10 pounds for 6 weeks after surgery or until your surgeon says you can. This includes lifting groceries. Drive while taking pain meds or while the urine tube is in. Taking care of your pain Take pain meds as needed. Use pain meds to stay comfortable enough to move around after surgery. You will go home from the hospital with a strong pain medicine. Take this medicine if your pain is 5 or more on a scale of 1 to 10. See the scale below to help rate your pain. Use extra strength acetaminophen (Tylenol ) for pain that is less than 5 on a 1 to 10 scale. Read the label on the bottle to find out how much is safe to take in a 24 hour period. Do not take more than this. Your diet at home Surgery changes the way your stomach and bowels work. It s common to have constipation, gas or stomach cramps after surgery. Eat small meals and snacks throughout the day instead of three large meals. Include a protein food in each meal and snack. Do not drink fizzy or bubbly liquids or eat foods that cause gas. Take steps to prevent constipation, gas and cramps: Eat high fiber foods such as whole grain cereals and breads, unpeeled fruits and vegetables, mixed salad greens, or prune juice. Drink 8 cups of water or juice each day. Take a stool softener such as Colace twice a day If you don t have a bowel movement for 2 full days take a mild laxative like Milk of Magnesia. Follow label directions. Do not take a laxative if Taking care of your urine tube You will go home with a tube (called a catheter) in your bladder. This tube will drain urine into abag. You will go home with a small leg bag and a larger overnight bag. The tube will remain in for 7 to 10 days until your follow up visit with your doctor. Drink 6 to 8 glasses of non-caffeine liquid each day. Water and juice are best. Do not drink liquids with caffeine. You can use the leg bag during the day. The leg bag straps to your thigh or calf. It holds about 10ounces (300 ml) of urine. Do not use the leg bag when lying down. This will keep the urine from draining out. Use the large overnight bag when sleeping or lying down. Keep the tube clean. Use soap and water to clean any crust on the tube near your penis. Be gentle. Do not tug on or move the tube around a lot when cleaning it. If you are not circumcised, gently pull back your foreskin for cleaning. When done, put the foreskin back in place, over the head of your penis. You may see blood in your urine from time to time. When this happens drink more liquids to keep blood clots from forming in your bladder. You may have some leaking of urine around the catheter. This is normal You may have bladder spasms. When spasms happen you may feel the need to pee. You may also notice urine leaking around the tube. Drinking more liquids and changing positions can help this. If spasms don t go away call your doctor. You may need medicine for this. Call your doctor right away if the catheter comes out of your penis or is pulled out part of the way. Go to [facility] emergency room. You must go to the emergency room at the [facility] or [facility]. Your catheter must be replaced by your urologist or team only. Do not go to any other emergency room. Make sure urine is draining well. Keep the bag lower than your bladder and check the tubing for kinks. Empty the bag every 8 hours or as soon as it gets full. Unclip the clamp on the end of the bag to let the urine out. Call your doctor right away if no urine comes out of the tube for 4 hours and you feel a strong urge to go. Taking care of your drain Supplies you will need are: Measuring cup Daily Drain Record (on pages 15 and 16 of this handout) 4 inch x 4 inch or 2 inch x 2 inch split gauze dressings Empty the drain 2 to 3 times a day, or as instructed by your doctor or nurse. Each time you empty the drain, write the date and the drainage amount in the Daily Drain Record. Bring the drain record with you to your post-op visit with the surgeon. How to empty your João-Gil drain (bulb type) Unplug the stopper on top of the drain. Turn the drain upside down and gently squeeze the drain to empty the fluid into a measuring cup. Squeeze the drain flat in your hand. Replace the stopper while the drain is flat to restart suction. Write the amount of drainage on your Daily Drain Record. Look at the drainage. If the drainage smells bad or if it is cloudy or bright red, call your doctors office. Put drainage in the toilet and rinse out the measuring cup. Wash and dry your hands. When you empty a João-Gil drain, you also need to massage the drain tubing with your fingers to help keep it clear of blood clots. This process is called stripping. Step 2 explains how to strip your drain tubing. 1. Gather your supplies. Wash your hands for 20 seconds with soap and water. Dry hands with a cleantowel. 2. To strip the drain: Use 2 fingers to hold the drain tubing near your skin. Hold the tubing firmly to keep from pulling it out. Pinch the tubing with 2 fingers from your other hand. Slide those fingers down the tubing towards the bulb and release them when you get to the end. Then let go of the tubing near your skin. Taking care of your wounds You will have 4 to 5 small wounds on your belly. Bruising and redness around the wounds is normal and will go away as you heal. You may notice drainage from the wounds. This can happen for 7 to 10 days after surgery. The drainage may be red or pink at first. Over time it will become clear. Look at your surgery wounds for these signs of infection: Redness White, yellow or montelongo drainage that is thick or cloudy Swelling Bad smelling drainage Warmth when touched Do not put lotions, powders, ointments or salves on your wounds. Other things You may have swelling in your scrotum (sack that contains the testicles) or penis. This is normal and often happens right after surgery. Swelling often gets better in 1 to 2 weeks. To decrease swelling you can: Place a rolled towel under your scrotum to lift it up when you are sitting or lying down Wear briefs for support, instead of boxer style or looser underwear You may have pain or soreness in the area between your anus and scrotum. This most often goes away after about 1 to 2 weeks. Things you can do to help this are: Put your feet on a stool while having a bowel movement. This will help decrease pressure on the area between your anus and scrotum. Try not to strain (push down) when having a bowel movement Take steps to prevent constipation. Eat high fiber foods and drink more liquids. Your legs or ankles may swell. This is normal and should go away in 1 to 2 weeks. Put your legs up when sitting. Flex your legs from time to time during the day. Walking can also help. Go to the nearest emergency room (ER) right away if you have: Swelling that causes your skin to indent when pressed with your finger. This is also called pittingedema . Leg or ankle swelling plus trouble breathing (shortness of breath). Swelling in one leg only. This may be a sign of a blood clot. Follow up visits after surgery Visit to remove your urine tube and JI drain You will see a doctor or nurse practitioner 7 to 10 days after surgery to have your urine tube and JI drain removed (if you were sent home with one). You will be given a prescription for an antibiotic called Cipro when you leave the hospital. Take your first dose of Cipro the morning of the day before your visit. For instance, for a visit scheduled on Saturday, Cipro would be started on Saturday morning. Don t forget to bring your drain output record with you to this visit. Post-op visit with your surgeon You will see your surgeon for follow up 2 weeks after surgery. At this visit the surgeon will tell you about any cancer found in the prostate tissue that was removed (also called pathology ). Questions to ask at the visit are: When can I go back to work? When can I drive? What sports or activities can I start doing again? Future visits (To schedule an appointment call [phone]) You will need to have a PSA blood test done a few days before every visit. Results from this test will help the doctor know how you are doing. When to call your surgeon (Desk number [phone] - this will be forwarded to an answering service after business hours) Call your doctor right away for: Pain, pressure, redness or swelling around any surgery wound that gets worse White, yellow or montelongo drainage from any surgery wound that is thick or cloudy A wound that feels warm to the touch A fever of 101 F or higher Chills or shaking Chest pain Shortness of breath Upset stomach or throwing up that doesn t stop after 12 hours Pain or swelling in your leg or calf Pain or swelling in the belly area that isn t helped by stool softener or laxative Increased swelling, warmth, drainage or pain around the JI drain insertion site. Increased redness that spreads out from your drain site. It is normal to see a little redness wherethe drain tubing and stitches enter your skin. A sudden increase in the amount of drainage or no drainage at all Cloudy, bad smelling or bright red bloody drainage The drain falls out The drain does not maintain suction, meaning that it will not stay flat No urine comes out of your catheter tube for 4 hours, and you feel the strong urge to go Don t forget! If the urine tube comes out of your penis or is pulled out part way: Call the doctor s office right away Go to [facility] Emergency department if unable to reach anyone in the office. You must go to the emergency room at the [facility]. The catheter must be replaced by your urologist or team only. Do not go to any other emergency room. Call 911 if you have any problems you feel are an emergency documented in this encounterSt. [facility] History of Present illness Narrative* Camelia Piedra MD - 10/07/2024 1:10 PM EDT [facility] NEW PATIENT HISTORY AND PHYSICAL EXAM PATIENT INFO: Víctor Nichols . 73 year old REFERRING M.D.: No referring provider defined for this encounter. CHIEF COMPLAINT: HISTORY: 73 year old male with PMHx of DM, ASCVD, CHF, COPD, HTN, LUTS (on Flomax), presenting today for evaluation of prostate cancer Mallard 7 (3+4) Grade group 2. 56% core involvement. Consulted to discuss possible RALP. After the prostate biopsy he was admitted to the hospital with severe bleeding from the rectum. Otherwise he is doing well. He does have severe lower extremity edema on the left side related to a knee problem. He supposed to have a knee replacement but that has been put on hold pending prostate cancer treatment. MRI of prostate 07/01/24 [facility] Urology - prostate volume 25 mL. 11 x 7 mm lesion involving the posterior aspect of the left peripheral zone at the level of the mid gland extending into theapex. No gross extracapsular extension is seen. PI-RADS 4. S/p MRI fusion TRUS biopsy 09/03/24: Norris 7 (3+4) Grade group 2. 56% core involvement. Cribriform not identified. 12/20 cores. LABS PSA 08/02/20 - 2.550 12/26/23 - 5.33 04/10/24 - 4.97 No results found for: PSA No results found for: CREAT PAST MEDICAL HISTORY Diagnosis Date ASCVD (arteriosclerotic cardiovascular disease) CHF (congestive heart failure) (HCC) COPD (chronic obstructive pulmonary disease) (HCC) Former smoker Hypertension PAST SURGICAL HISTORY Procedure Laterality Date APPENDECTOMY CARDIAC CATH COLONOSCOPY CORON ART, BYPASS/REOP >1 MON ORIG PERCUTANEOUS TRANSLUMINAL ANGIOPLASTY OF THE CAROTID ARTERY S/P CABG 12/28/2004 REMV CATARACT EXTRACAP,INSERT LENS Bilateral 2016 Social History Tobacco Use Smoking status: Former Current packs/day: 0.00 Types: Cigarettes Quit date: 2008 Years since quittin.4 Smokeless tobacco: Never Vaping Use Vaping status: Never Used Substance Use Topics Alcohol use: Yes Comment: occasionally Drug use: Never REVIEW OF SYSTEMS: (positive in bold) GENERAL: Recent weight gain/loss, fatigue, weakness, fever, night sweats MUSCLE/JOINTS/BONE: Back pain, joint pain, joint swelling CARDIOVASCULAR: Chest pain, heart attack GASTROINTESTINAL: Abdominal pain, fecal incontinence HEAD & NECK: Blurry vision, double vision, cataracts, loss of vision, dryness NEUROLOGIC: Numbness, tingling SKIN: Redness, rash, nodules/bumps, hair loss, color change in hands or feet RESPIRATORY: Cough, shortness of breath ENDOCRINE: Diabetes, thyroid problems THROAT: Frequent sore throats, hoarseness PHYSICAL EXAM: Patient is short and uses a cane. Has severe edema on the left lower leg. No acute distress, appears stated age, alert and oriented x 3 Breathing comfortably on room air without use of accessory muscles or cyanosis Abdomen is protuberant but no masses or significant scars Appears well-perfused No obvious focal neurologic deficits IMPRESSION/PLAN: 73-year-old gentleman with intermediate risk prostate cancer. Overall given his age and comorbidityhe is at significant risk from robotic prostatectomy. We talked once again about the pros and cons of surgery versus radiation. We talked about the possibility of brachytherapy as an alternative. He is leaning towards radiation or brachytherapy. Will put in a referral for local radiation oncologistwho can do brachytherapy. The risks, benefits and alternatives of a robotic radical prostatectomy were discussed with the patient. These include, but are not limited to bleeding, infection, injury to adjacent structures (suchas the rectum, bowel, or major blood vessels). There can also be wound infections, hernias and rarely chronic neuropathic pain or numbness. We also talked about medical complications, such as cardiac(PA, etc), respiratory (pneumonia, etc), renal (Acute kidney injury, etc), Blood clots (DVTs, PEs, etc), as well as other complications. We talked about the possibility of urine leak requiring prolonged catheterization, urinary incontinence (usually self-limited but can be prolonged requiring intervention) and erectile dysfunction (which depends on baseline erectile function and the possibility of nerve preservation). Patient understood these risks, questions were answered. PATIENT INSTRUCTIONS: Recording using [employer] software for draft documentation of the visit was discussed with the patient/authorized account services representative; all questions welcomed and answered. Patient/authorized account services representative agreed to proceed By signing my name below, ITuyet, attest that this documentation has been prepared underthe direction and in the presence of Dr. Piedra. Tuyet Butterfield Scribe Provider Attestation: ICamelia MD, personally performed the services described in this documentation. All medical record entries made by the scribe were at my direction and in my presence. I have reviewed thechart and discharge instructions (if applicable) and agree that the record reflects my personal perf ormance and is accurate and complete. Dr. Camelia Piedra MD October 07, 2024 1:33 PM documented in this encounterSt. [facility]06-04-[facility] NoteHNO ID: [id number] Author: CAMELIA PIEDRA MD Service: ? Author Type: Physician Type: Progress Notes Filed: 10/07/2024 13:35 Note Text: [facility] NEW PATIENT HISTORY AND PHYSICAL EXAM PATIENT INFO: Víctor Nichols Sr. 73 year old REFERRING M.D.: No referring provider defined for this encounter. CHIEF COMPLAINT: HISTORY: 73 year old male with PMHx of DM, ASCVD, CHF, COPD, HTN, LUTS (on Flomax), presenting today for evaluation of prostate cancer Mallard 7 (3+4) Grade group 2. 56% core involvement. Consulted to discuss possible RALP. After the prostate biopsy he was admitted to the hospital with severe bleeding from the rectum. Otherwise he is doing well. He does have severe lower extremity edema on the left side related to a knee problem. He supposed to have a knee replacement but that has been put on hold pending prostate cancer treatment. MRI of prostate 07/01/24 [facility]rology - prostate volume 25 mL. 11 x 7 mm lesion involving the posterior aspect of the left peripheral zone at the level of the mid gland extending into the apex. No gross extracapsular extension is seen. PI-RADS 4. S/p MRI fusion TRUS biopsy 09/03/24: Norris 7 (3+4) Grade group 2. 56% core involvement. Cribriform not identified. 8/17 cores. LABS PSA 08/02/20 - 2.550 12/26/23 - 5.33 04/10/24 - 4.97 No results found for: PSA No results found for: CREAT PAST MEDICAL HISTORY Diagnosis Date ASCVD (arteriosclerotic cardiovascular disease) CHF (congestive heart failure) (HCC) COPD (chronic obstructive pulmonary disease) (HCC) Former smoker Hypertension PAST SURGICAL HISTORY Procedure Laterality Date APPENDECTOMY CARDIAC CATH COLONOSCOPY CORON ART, BYPASS/REOP >1 MON ORIG PERCUTANEOUS TRANSLUMINAL ANGIOPLASTY OF THE CAROTID ARTERY S/P CABG 12/28/2004 REMV CATARACT EXTRACAP,INSERT LENS Bilateral 2016 Social History Tobacco Use Smoking status: Former Current packs/day: 0.00 Types: Cigarettes Quit date: 2008 Years since quittin.4 Smokeless tobacco: Never Vaping Use Vaping status: Never Used Substance Use Topics Alcohol use: Yes Comment: occasionally Drug use: Never REVIEW OF SYSTEMS: (positive in bold) GENERAL: Recent weight gain/loss, fatigue, weakness, fever, night sweats MUSCLE/JOINTS/BONE: Back pain, joint pain, joint swelling CARDIOVASCULAR: Chest pain, heart attack GASTROINTESTINAL: Abdominal pain, fecal incontinence HEAD AND NECK: Blurry vision, double vision, cataracts, loss of vision, dryness NEUROLOGIC: Numbness, tingling SKIN: Redness, rash, nodules/bumps, hair loss, color change in hands or feet RESPIRATORY: Cough, shortness of breath ENDOCRINE: Diabetes, thyroid problems THROAT: Frequent sore throats, hoarseness PHYSICAL EXAM: Patient is short and uses a cane. Has severe edema on the left lower leg. No acute distress, appears stated age, alert and oriented x 3 Breathing comfortably on room air without use of accessory muscles or cyanosis Abdomen is protuberant but no masses or significant scars Appears well-perfused No obvious focal neurologic deficits IMPRESSION/PLAN: 73-year-old gentleman with intermediate risk prostate cancer. Overall given his age and comorbidity he is at significant risk from robotic prostatectomy. We talked once again about the pros and cons of surgery versus radiation. We talked about the possibility of brachytherapy as an alternative. He is leaning towards radiation or brachytherapy. Will put in a referral for local radiation oncologist who can do brachytherapy. The risks, benefits and alternatives of a robotic radical prostatectomy were discussed with the patient. These include, but are not limited to bleeding, infection, injury to adjacent structures (such as the rectum, bowel, or major blood vessels). There can also be wound infections, hernias and rarely chronic neuropathic pain or numbness. We also talked about medical complications, such as cardiac (PA, etc), respiratory (pneumonia, etc), renal (Acute kidney injury, etc), Blood clots (DVTs, PEs, etc), as well as other complications. We talked about the possibility of urine leak requiring prolonged catheterization, urinary incontinence (usually self-limited but can be prolonged requiring intervention) and erectile dysfunction (which depends on baseline erectile function and the possibility of nerve preservation). Patient understood these risks, questions were answered. PATIENT INSTRUCTIONS: Recording using ambient [employer] software for draft documentation of the visit was discussed with the patient/authorized account services representative; all questions welcomed and answered. Patient/authorized account services representative agreed to proceed By signing my name below, I, Tuyet Butterfield, attest that this documentation has been prepared under the direction and in the presence of Dr. Piedra. Tuyet Butterfield Scribe Provider Attestation: I, (more content not included)...[id number] Procedure note [address] [address] Colonoscopy Procedure Report Signed Patient: Víctor Nichols Sr MR#: [id number] : 1950 Acct:[id number] Age/Sex: 73 / M Adm Date: 5 Loc: Room: Type: [facility] Attending Dr: Jaime Sharif MD Copies to: MD Luis Alberto Ortiz MD~ Colonoscopy Date/Provider 10/02/2024 Jaime Sharif MD Narrative Procedure: Colonoscopy Indication: 73-year-old male presents for screening colonoscopy Pre-operative diagnosis: Screening, family history of colorectal cancer Post-operative diagnosis: Hemorrhoids, diverticulosis Sedation: propofol per anesthesia dept O2 oximetry, hemodynamic monitoring was performed pre, during, and post procedure. Patient was identified, H&P completed, patient was given full explanation of the procedure as well as associatedrisks and written consent wasobtained prior to procedure. Patient expressed complete understanding of the procedure as well as alternatives to the procedure and to anesthesia and agreed to proceed with the procedure as indicated. Patient was immediately reassessed prior to IV sedation. Under IV sedation, patient was placed in the prone-superman position. Digital rectal exam was performed and normal. Colonoscope was inserted and passed proximally to the cecum, which was identified by the ileocecal valve, appendiceal orifice and cecal floor. Colonoscope was slowly withdrawn with the findings as below. Cherokee bowel prep score was good. Findings: Extremely redundant colon, otherwise findings as below. Cecum: Normal. Ascending colon: Normal. Hepatic flexure: Normal. Transverse colon: Rare diverticula. Splenic flexure: Normal. Descending colon: Rare diverticula. Sigmoid colon: Rare diverticula. Rectum: Normal. Retroflexed views: Demonstrated moderate size hemorrhoids. Biopsy taken: no Complications: None EBL: minimal Recommendations: -While patient does have a family history of colorectal cancer he is never had apolyp before, givenhis age would recommend discontinue colorectal cancer screening. -Follow up in the office as needed -Follow up with PCP Following a period of recovery, patient was seen and given full explanation of the procedure. Patient tolerated the procedure well and will be discharged in satisfactory, stable condition. Jaime Sharif MD Documented By: Jaime Sharif MD 10/02/24 0842 Signed By: 10/02/24 0857 [facility]05-30-2025 [place] [address] Gastroenterology H&P Signed Patient: Víctor Nichols MR#: [id number] : 1950 Acct:[id number] Age/Sex: 73 / M Adm Date: 5 Loc: Room: Type: [facility] Attending Dr: Jaime Sharif MD Copies to: MD Luis Alberto Ortiz MD~ Date of Service: 10/02/2024 HISTORY & PHYSICAL: Patient's history with special attention to the cardiovascular, pulmonary systems and the current problem was reviewed with the patient immediately prior to the procedure. Present medications and doses reviewed in the EMR. Allergies and pertinent laboratory tests were also re viewedat this time in the EMR. The physical examination, as below, was then performed. Indication, assessment and HPI: 73-year-old male presents for screening colonoscopy Family history of GI malignancy? Yes, multiple first and second-degree relatives with colorectal cancer. Patient reports that his nephew has 100s of polyps . PHYSICAL EXAMINATION Mouth and Pharynx : moist mucus membranes, normal dentition Eyes: EOM intact b/l, normal sclera Pulmonary: normal respiratory effort, able to speak in complete sentences Neurological: alert and oriented x3, moves all extremities Skin: non-jaundiced, warm and dry Abdomen: non-distended, normal to inspection Psych: Mental status and mood grossly normal REVIEW OF SYSTEMS Constitutional: Denies malaise, fevers Cardiovascular: Denies chest pain, palpitations Respiratory: Denies shortness of breath, wheezing Gastrointestinal: Per HPI Genitourinary: Denies dysuria, polyuria Musculoskeletal: Denies joint swelling, joint stiffness Neurological: Denies numbness, tingling Integumentary: Denies rashes, skin lesions Endocrine: Denies fatigue, weight loss Written informed consent obtained from the patient. Risks (including but not limited to perforation, infection, bloating, bleeding, need for emergent surgeryand loss of life), benefits and alternatives explained and questions answered. The patient verbalized understanding. Based on history patient is an appropriate candidate for the procedure. Jaime Sharif MD Documented By: Jaime Sharif MD 10/02/2441 Signed By: 10/02/24841 [facility]05-08-2025 NotePatient Education Oncology Prostate Cancer The prostate is a small gland that produces fluid that makes up semen (seminal fluid). It is located below the bladder in men, in front of the rectum. Prostate cancer is the abnormal growth of cells in the prostate gland. What are the causes? The exact cause of this condition is not known. What increases the risk? You are more likely to develop this condition if: ??? You are 65 years of age or older. ??? You have a family history of prostate cancer. ??? You have a family history of breast and ovarian cancer. ??? You have genes that are passed from parent to child (inherited), such as BRCA1 and BRCA2. ??? You have Scott syndrome. men and men of descent are diagnosed with prostate cancer at higher rates than other men. The reasons for this are not well understood and are likely due to a combination of genetic and environmental factors. What are the signs or symptoms? Symptoms of this condition include: ??? Problems with urination. This may include: ? A weak or interrupted flow of urine. ? Trouble starting or stopping urination. ? Trouble emptying the bladder all the way. ? The need to urinate more often, especially at night. ??? Blood in urine or semen. ??? Persistent pain or discomfort in the lower back, lower abdomen, or hips. ??? Trouble getting an erection. ??? Weakness or numbness in the legs or feet. How is this diagnosed? This condition can be diagnosed with: ??? A digital rectal exam. For this exam, a health care provider inserts a gloved finger into the rectum to feel the prostate gland. ??? A blood test called a prostate-specific antigen (PSA) test. ??? A procedure in which a sample of tissue is taken from the prostate and checked under a microscope (prostate biopsy). ??? An imaging test called transrectal ultrasonography. Once the condition is diagnosed, tests will be done to determine how far the cancer has spread. This is called staging the cancer. Staging may involve imaging tests, such as a bone scan, CT scan, PETscan, or MRI. Stages of prostate cancer The stages of prostate cancer are as follows: ??? Stage 1 (I). At this stage, the cancer is found in the prostate only. The cancer is not visibleon imaging tests, and it is usually found by accident, such as during prostate surgery. ??? Stage 2 (II). At this stage, the cancer is more advanced than it is in stage 1, but the cancer has not spread outside the prostate. ??? Stage 3 (III). At this stage, the cancer has spread beyond the outer layer of the prostate to nearby tissues. The cancer may be found in the seminal vesicles, which are near the bladder and the prostate. ??? Stage 4 (IV). At this stage, the cancer has spread to other parts of the body, such as the lymph nodes, bones, bladder, rectum, liver, or lungs. Prostate cancer grading Prostate cancer is also graded according to how the cancer cells look under a microscope. This is called the Norris score and the total score can range from 6?10, indicating how likely it is that the cancer will spread (metastasize) to other parts of the body. The higher the score, the greater thelikelihood that the cancer will spread. ??? Norris 6 or lower: This indicates that the cancer cells look similar to normal prostate cells (well differentiated). ??? Mallard 7: This indicates that the cancer cells look somewhat similar to normal prostate cells (moderately differentiated). ??? Norris 8, 9, or 10: This indicates that the cancer cells look very different than normal prostate cells (poorly differentiated). How is this treated? Treatment for this condition depends on several factors, including the stage of the cancer, your age, personal preferences, and your overall health. Talk with your health care provider about treatment options that are recommended for you. Common treatments include: ??? Observation for early stage prostate cancer (active surveillance). This involves having exams, blood tests, and in some cases, more biopsies. For some men, this is the only treatment needed. ??? Surgery. Types of surgeries include: ? Open surgery (radical prostatectomy). In this surgery, a larger incision is made to remove the prostate. ? A laparoscopic radical prostatectomy. This is a surgery to remove the prostate and lymph nodes through several small incisions. It is often referred to as a minimally invasive surgery. ? A robotic radical prostatectomy. This is laparoscopic surgery to remove the prostate and lymph nodes with the help of robotic arms that are controlled by the surgeon. ? Cryoablation. This is surgery to freeze and destroy cancer cells. ??? Radiation treatment. Types of radiation treatment include: ? External beam radiation. This type aims beams of radiation from outside the body at the prostate to destroy cancerous cells. ? Brachytherapy. This type uses radioactive needles, seeds, wires, o (more content not included)...[facility]05-03-2025 NoteProgress Note-Physician Patient: VÍCTOR NICHOLS SR Age: 73 years Sex: Male : 1950 Associated Diagnoses: None Author: Vernon Mendez MD Postoperative Information Postoperative disposition: Postoperative disposition: To PACU. Optimetrix number: Optimetrix number [id number]. Anesthetic utilized: General. Health Status Allergies: Allergic Reactions (Selected) Severity Not Documented Atorvastatin- Hives and unknown. Fentanyl topical- Rash, itching, unknown and eruption. Morphine- Itching, itching and unknown. Ranolazine- Hives and unknown. Venlafaxine- Unknown and comment:tired, no appetite. Vilanterol- Dizziness. Physical Examination VS/Measurements Pain Assessment: Controlled. General: Awake, Appropriate. Respiratory: Adequate air exchange. Cardiovascular: Stable. Neurological Assessment Anesthetic outcome No anesthetic complications noted. Adequate pain relief. Review / Management Condition: Stable. Plan Transfer/Discharge: Transfer/Discharge Discharge when meets criteria ( To home ).[facility]Comment on above:Result Comment: Electronically Signed By: Vernon Mendez MD\.br\Date and Time Signed: 09/05/24 17:13 EDT 09-05-2024 Evaluation + Plan noteExtracted from: Title:Discharge Note Author:Epifanio Monroy III, DO Date:09/05/24 Discharge To, Anticipated II - Home with responsible caregiver Transported by, Anticipated - Family Discharge Diet(s): Regular (09/05/24 10:07:00) Prescriptions acetaminophen-oxycodone 325 mg-2.5 mg oral tablet, 1-2 tab(s), Oral, q8hr, PRN Keflex 500 mg Cap, 500 mg= 1 cap(s), Oral, q12hr tamsulosin 0.4 mg Cap, 0.4 mg= 1 cap(s), Oral, Daily, 11 refills Home Albuterol (Eqv-Ventolin HFA) 90 mcg/inh inhalation aerosol, 2 inh, Inhalation, q6hr, PRN aspirin 81 mg oral capsule, 81 mg= 1 cap(s), Oral, Daily atorvastatin 40 mg Tab, 40 mg= 1 tab(s), Oral, Daily clopidogrel 75 mg Tab, 75 mg= 1 tab(s), Oral, Daily docusate sodium 100 mg Cap, 100 mg= 1 cap(s), Oral, Daily, PRN furosemide 40 mg Tab, 40 mg= 1 tab(s), Oral, Daily hydrochlorothiazide-lisinopril 12.5 mg-10 mg Tab, 1 tab(s), Oral, Daily isosorbide mononitrate 120 mg ER Tab, 120 mg= 1 tab(s), Oral, qAM latanoprost Opth 0.005% Ritu, 1 drop(s) metoprolol succinate 25 mg ER Tab, 25 mg= 1 tab(s), Oral, Daily nitroglycerin, 0.4 mg, SubLingual, q5min omeprazole 20 mg Cap-DR, 20 mg= 1 cap(s), Oral, Daily Potassium Chloride (Bpn-Addx-Fbc 10) 10 mEq oral tablet, extended release, 10 mEq= 1 tab(s), Oral, Daily With When Contact Information RUDI PINON Within 2 to 3 days Additional Instructions: Call for followup appointment. Follow up ASPA/this week with Urology for voiding trial LUIS ALBERTO CARRASCO Within 7 to [address] [place] [address] [facility] (1) Additional Instructions: Call for followup appointment Acute Urinary Retention, Male Urinary Tract Infection, Adult Addendum by Eldon Monroy III, DO on September 05, 2024 10:23:25 EDT Pharmacy did not have 2.5 mg Percocet. Changed order to oxy/APAP 5-325 mg p.o. every 8 hours as needed for pain. Do not exceed 3000 mg Tylenol in 24-hour period. Extracted from: Title:Admission H & P Author:Ainsley Prabhakar MD Date:09/04/24 1. Rectal bleeding (K62.5: H emorrhage of anus and rectum) Due to recent prostate biopsy done on 09/03/24. Patient had issues with rectal bleeding in PACU that continued once home Clinically bleeding appears minimal at present, but patient reported saturating diapers at home Hb 11.4, no indication for transfusion Consult Urology 2. Hyponatremia (E87.1: Hypo-osmolality and hyponatremia) Likely due to polyuria from postobstructive diuresis in setting of urinary retention and Allan insertion. Patient with over 3100cc of UO in the 4-5 hours he was down in the ED Ordered 0.45% NS at 100 cc/hr to try and replace some of the volume loss Repeat BMP in AM Hold home diuretics as do no want to promote further diuresis at this point Consult Nephrology 3. Polyuria (R35.89: Other polyuria) See above. Suspect due to postobstructive diuresis in setting of urinary retention and Allan insertion. 4. UTI (urinary tract infection) (N39.0: Urinary tract infection, site not specified) UA appears infected and there is possible evidence of cystitis on CT Ordered Rocephin to cover for bacteria Urine culture pending 5. Acute on chronic heart failure with preserved ejection fraction (HFpEF) (I50.33: Acute on chronic diastolic (congestive) heart failure) Patient currently appears hypervolemic with increased pitting LE edema. Unable to restart diuretic at this point as do not want to promote further diuresis in setting of above, but will need to balance his fluid status closely as planning on giving some fluid back in hopes that it will improve his acute hyponatremia. Echo 08/2024: EF 65-70%, no diastolic dysfunction, RVSP 23 mmHg 6. CAD (coronary artery disease) (I25.10: Atherosclerotic heart disease of [place] coronary artery without angina pectoris) Holding ASA, Plavix due to rectal bleeding and recent prostate biopsies. Continue Imdur Hx CABG 7. Diabetes (E11.9: Type 2 diabetes mellitus without complications) No A1C in EMR Ordered SSI prn for now. 8. Hyperlipidemia (E78.5: Hyperlipidemia, unspecified) Atorvastatin 9. Essential hypertension (I10: Essential (primary) hypertension) Continue home Lisinopril, Metoprolol for now. Hold HCTZ due to not wanting to aid in further diuresis at this point 10. Chronic obstructive pulmonary disease (J44.9: Chronic obstructive pulmonary disease, unspecified) No acute exacerbation present 11. VASQUEZ (obstructive sleep apnea) (G47.33: Obstructive sleep apnea (adult) (pediatric)) 12. S/P CABG (coronary artery bypass graft) (Z95.1: Presence of aortocoronary bypass graft) 13. Obesity (E66.9: Obesity, unspecified) BMI 38. Hepatic steatosis noted on CT A/P Addendum by Eldon Monroy III, DO on September 04, 2024 10:05:45 EDT Patient seen at bedside. I independently examined patient this morning and reviewed his orders and documentation. He reports that his rectal bleeding is stopped. He is hemodynamically stable. Hemoglobin is downtrending slightly as around 10 from his rectal bleeding. He has a Allan in place. His sodium has normalized rapidly. Holding further fluids at this time. He is eating his breakfast on my exam. Rechecking BMP at noon. Defer further management to nephrology. Nephro and urology consult pending. He was asking about if he can go without his Allan and requiring whether he could discharge today. Will follow-up with nephrology, repeat BMP, urology and discussed with patient. Extracted from: Title:ED Note Author:Armin Bhatia DO Date: 1. Rectal bleeding (K62.5: H emorrhage of anus and rectum) 2. Hyponatremia (E87.1: Hypo-osmolality and hyponatremia) 3. Polyuria (R35.89: Other polyuria) 4. UTI (urinary tract infection) (N39.0: Urinary tract infection, site not specified) 5. Acute on chronic heart failure with preserved ejection fraction (HFpEF) (I50.33: Acute on chronic diastolic (congestive) heart failure) 6. CAD (coronary artery disease) (I25.10: Atherosclerotic heart disease of [place] coronary artery without angina pectoris) 7. Diabetes (E11.9: Type 2 diabetes mellitus without complications) 8. Hyperlipidemia (E78.5: Hyperlipidemia, unspecified) 9. Essential hypertension (I10: Essential (primary) hypertension) 10. Chronic obstructive pulmonary disease (J44.9: Chronic obstructive pulmonary disease, unspecified) 11. VASQUEZ (obstructive sleep apnea) (G47.33: Obstructive sleep apnea (adult) (pediatric)) 12. S/P CABG (coronary artery bypass graft) (Z95.1: Presence of aortocoronary bypass graft) 13. Obesity (E66.9: Obesity, unspecified) Orders: diazepam, 5 mg = 1 mL, Injection, IV Push, Once, Stop date 09/03/24 20:45:00 EDT, STAT, Start date 09/03/24 20:45:00 EDT, 09/03/24 20:45:00 EDT Add on Test Add on Test B-Type Natriuretic Peptide Basic Metabolic Panel CBC w/ Auto Diff Chloride Level Urine Creatinine Urine CT Abdomen/Pelvis w/ Contrast ED Physician consult Hospitalist for continued care eGFR Extra SST Tube PT & PTT Sodium Level Urine Troponin UA with Cult Rflx Urine Culture [facility] 05-03-2025 Hospital Discharge instructions Patient Education 09/05/2024 10:10:53 Acute Urinary Retention, Male Acute Urinary Retention, Male Acute urinary retention is a condition in which a person is unable to pass urine or can only pass alittle urine. This condition can happen suddenly and last for a short time. If left untreated, it can become long-term (chronic) and result in kidney damage or other serious complications. What are the causes? This condition may be caused by: Obstruction or narrowing of the tube that drains the bladder (urethra). This may be caused by surgery, problems with nearby organs, or injury to the bladder or urethra. Problems with the nerves in the bladder. Tumors in the area of the pelvis, bladder, or urethra. Certain medicines. Bladder or urinary tract infection. Constipation. What increases the risk? This condition is more likely to develop in older men. As men age, their prostate may become largerand may start to press or squeeze on the bladder or the urethra. Other chronic health conditions can increase the risk of acute urinary retention. These include: Diseases such as multiple sclerosis. Spinal cord injuries. Diabetes. Degenerative cognitive conditions, such as delirium or dementia. Psychological conditions. A man may hold his urine due to trauma or because he does not want to usethe bathroom. What are the signs or symptoms? Symptoms of this condition include: Trouble urinating. Pain in the lower abdomen. How is this diagnosed? This condition is diagnosed based on a physical exam and your medical history. You may also have other tests, including: An ultrasound of the bladder or kidneys or both. Blood tests. A urine analysis. Additional tests may be needed, such as a CT scan, MRI, and kidney or bladder function tests. How is this treated? Treatment for this condition may include: Medicines. Placing a thin, sterile tube (catheter) into the bladder to drain urine out of the body. This is called an indwelling urinary catheter. After it is inserted, the catheter is held in place with a small balloon that is filled with sterile water. Urine drains from the catheter into a collection bag outside of the body. Behavioral therapy. Treatment for other conditions. If needed, you may be treated in the hospital for kidney function problems or to manage other complications. Follow these instructions at home: Medicines Take nqdh-reh-vbebcga and prescription medicines only as told by your health care provider. Avoid certain medicines, such as decongestants, antihistamines, and some prescription medicines. Do not take any medicine unless your health care provider approves. If you were prescribed an antibiotic medicine, take it as told by your health care provider. Do notstop using the antibiotic even if you start to feel better. General instructions Do not use any products that contain nicotine or tobacco. These products include cigarettes, chewing tobacco, and vaping devices, such as e-cigarettes. If you need help quitting, ask your health careprovider. Drink enough fluid to keep your urine pale yellow. If you have an indwelling urinary catheter, follow the instructions from your health care provider. Monitor any changes in your symptoms. Tell your health care provider about any changes. If instructed, monitor your blood pressure at home. Report changes as told by your health care provider. Keep all follow-up visits. This is important. Contact a health care provider if: You have uncomfortable bladder contractions that you cannot control (spasms). You leak urine with the spasms. Get help right away if: You have chills or a fever. You have blood in your urine. You have a catheter and the following happens: ?Your catheter stops draining urine. ?Your catheter falls out. Summary Acute urinary retention is a condition in which a person is unable to pass urine or can only pass alittle urine. If left untreated, this condition can result in kidney damage or other serious complications. An enlarged prostate may cause this condition. As men age, their prostate gland may become larger and may press or squeeze on the bladder or the urethra. Treatment for this condition may include medicines and placement of an indwelling urinary catheter. Monitor any changes in your symptoms. Tell your health care provider about any changes. This information is not intended to replace advice given to you by your health care provider. Make sure you discuss any questions you have with your health care provider. Document Revised: 01/11/2021 Document Reviewed: 01/11/2021 [employer] Patient Education 2023 1bib. 09/05/2024 10:10:48 Urinary Tract Infection, Adult Urinary Tract Infection, Adult A urinary tract infection (UTI) is an infection of any part of the urinary tract. The urinary tractincludes the kidneys, ureters, bladder, and urethra. These organs make, store, and get rid of urinein the body. An upper UTI affects the ureters and kidneys. A lower UTI affects the bladder and urethra. What are the causes? Most urinary tract infections are caused by bacteria in your genital area around your urethra, where urine leaves your body. These bacteria grow and cause inflammation of your urinary tract. What increases the risk? You are more likely to develop this condition if: You have a urinary catheter that stays in place. You are not able to control when you urinate or have a bowel movement (incontinence). You are female and you: ?Use a spermicide or diaphragm for control. ?Have low estrogen levels. ?Are . You have certain genes that increase your risk. You are sexually active. You take antibiotic medicines. You have a condition that causes your flow of urine to slow down, such as: ?An enlarged prostate, if you are male. ?Blockage in your urethra. ?A kidney stone. ?A nerve condition that affects your bladder control (neurogenic bladder). ?Not getting enough to drink, or not urinating often. You have certain medical conditions, such as: ?Diabetes. ?A weak disease-fighting system (immunesystem). ?Sickle cell disease. ?Gout. ?Spinal cord injury. What are the signs or symptoms? Symptoms of this condition include: Needing to urinate right away (urgency). Frequent urination. This may include small amounts of urine each time you urinate. Pain or burning with urination. Blood in the urine. Urine that smells bad or unusual. Trouble urinating. Cloudy urine. Vaginal discharge, if you are female. Pain in the abdomen or the lower back. You may also have: Vomiting or a decreased appetite. Confusion. Irritability or tiredness. A fever or chills. Diarrhea. The first symptom in older adults may be confusion. In some cases, they may not have any symptoms until the infection has worsened. How is this diagnosed? This condition is diagnosed based on your medical history and a physical exam. You may also have other tests, including: Urine tests. Blood tests. Tests for STIs (sexually transmitted infections). If you have had more than one UTI, a cystoscopy or imaging studies may be done to determine the cause of the infections. How is this treated? Treatment for this condition includes: Antibiotic medicine. Ftfu-[id number]-ofwwjkb medicines to treat discomfort. Drinking enough water to stay hydrated. If you have frequent infections or have other conditions such as a kidney stone, you may need to see a health care provider who specializes in the urinary tract (urologist). In rare cases, urinary tract infections can cause sepsis. Sepsis is a life- threatening condition that occurs when the body responds to an infection. Sepsis is treated in the hospital with IV antibiotics, fluids, and other medicines. Follow these instructions at home: Medicines Take [id number] and prescription medicines only as told by your health care provider. If you were prescribed an antibiotic medicine, take it as told by your health care provider. Do notstop using the antibiotic even if you start to feel better. General instructions Make sure you: ?Empty your bladder often and completely. Do not hold urine for long periods of time. ?Empty your bladder after sex. ?Wipe from front to back after urinating or having a bowel movement if you are female. Use each tissue only one time when you wipe. Drink enough fluid to keep your urine pale yellow. Keep all follow-up visits. This is important. Contact a health care provider if: Your symptoms do not get better after 1 2 days. Your symptoms go away and then return. Get help right away if: You have severe pain in your back or your lower abdomen. You have a fever or chills. You have nausea or vomiting. Summary A urinary tract infection (UTI) is an infection of any part of the urinary tract, which includes the kidneys, ureters, bladder, and urethra. Most urinary tract infections are caused by bacteria in your genital area. Treatment for this condition often includes antibiotic medicines. If you were prescribed an antibiotic medicine, take it as told by your health care provider. Do notstop using the antibiotic even if you start to feel better. Keep all follow-up visits. This is important. This information is not intended to replace advice given to you by your health care provider. Make sure you discuss any questions you have with your health care provider. Document Revised: 11/27/2020 Document Reviewed: 12/02/2020 [employer] Patient Education 2023 1bib. Follow Up Care 09/03/2024 19:19:32 With:RUDI PINON Address:Unknown When:2 to 3 days Comments:Call for followup appointment. Follow up ASPA/this week with Urology for voiding trial With:LUIS ALBERTO DANILO Address: [address] [place] [address] Business (1) When:7 to 10 days Comments:Call for followup appointment [facility] 05-03-2025 NoteDischarge Summary Admission and Discharge Information Admitting Physician - Aki FRANCIS, Ainsley Consulting Physician - Gaurav FRANCIS, Ras Villaseñor Admitting Diagnoses: 1. Rectal bleeding, 09/04/2024 2. Hyponatremia, 09/04/2024 3. Polyuria, 09/04/2024 Discharge Order Date Discharge Patient - Ordered -- 09/05/24 10:11:00 EDT Discharge Diagnoses 1. Rectal bleeding, 09/04/2024 2. Hyponatremia, 09/04/2024 3. Polyuria, 09/04/2024 4. UTI (urinary tract infection), 09/04/2024 5. BPH with urinary obstruction, 09/04/2024 6. Acute blood loss anemia, 09/04/2024 7. Acute on chronic heart failure with preserved ejection fraction (HFpEF), 09/04/2024 8. CAD (coronary artery disease), 09/04/2024 9. Diabetes, 09/04/2024 10. Hyperlipidemia, 09/04/2024 11. Essential hypertension, 09/04/2024 12. Chronic obstructive pulmonary disease, 09/04/2024 13. VASQUEZ (obstructive sleep apnea), 09/04/2024 14. S/P CABG (coronary artery bypass graft), 09/04/2024 15. Obesity, 09/04/2024 Dizziness, 09/03/2024 Post surgical problem, 09/03/2024 Rectal bleed, 09/03/2024 Procedure History Transrectal biopsy of prostate using ultrasound guidance (09/03/2024), Discission of secondary membranous cataract (opacified posterior lens capsule and/or anterior hyaloid); laser surgery (eg, YAG laser) (1 or more stages) (10/09/2021), Appendectomy, Arthroscopic procedure of knee joint, Cardiac ca theterization, Carpal tunnel release, Coronary artery bypass graft, History of tonsillectomy, Percutaneous transluminal coronary angioplasty, Procedure on neck. Hospital Course The patient is a 73 year old male with a past medical history of CAD status post CABG, dyslipidemia, hypertension, diabetes, diastolic CHF, BPH, COPD/asthma, GERD, VASQUEZ, glaucoma. Admitted to [facility] on 09/04/2024 with rectal bleeding after prostate biopsy (on aspirin and Plavix), acute urinary retention, acute hyponatremia, mild VIOLETA requiring Allan catheter placement. He underwent a ultrasound-guided prostate biopsy today on 09/03/[address] Marcos. Indication was elevated PSA and abnormal MRI. Patient tolerated procedure well, however, had rectal bleeding in PACU afterwards. Per documentation it had slowed down quite a bit and he was stable for home disch arge, but unfortunately it reoccurred and he required admission. Baseline hemoglobin 14.4. Hemoglobin on presentation was 11.4 and down trended to 10.1. But remained stable in the tens during his admission. Rectal bleeding stopped spontaneously. Sodium was 129 on presentation secondary to acute urinary retention improved and normalized after Allan placement. Patient was seen by urology who recommended maintaining Allan and discharge home and to follow-up with urology early next week for voiding trial. Patient was kept overnight for observation and had no significant further rectal bleeding other than passage of some older blood from previous bleeding episode. Patient was medically stable for discharge home on 09/05/2024. Patient received 2 days of ceftriaxone his urinalysis looked infected. Urine cultures are still pending but are negative so far. He wasprescribed a cephalosporin antibiotic by his urologist and encouraged to take this for an additional 3 days for 5 days of total therapy on discharge. Defer further antibiotic management to urology. Follow-up PCP in 7 to 10 days Urologist in 2 to 3 days for voiding trial this week. Also needs to follow-up and review prostate biopsy results with him. Medication changes No chronic medication changes. May continue aspirin and Plavix. Prescribed oxy-acetaminophen 2.5 mg - 325 mg 1-2 tabs every 8 hours as needed for pain. Given 12 tabs. Encouraged to take Tylenol as needed other than that and not to exceed 3000 mg in a 24-hour period. Services Consulted Consult to Urology - Ordered -- 09/04/24 1:24:00 EDT, Rectal bleeding from prostate biopsy, postobstructive diuresis, Consult and Co-manage Physical Exam General: NAD Skin: warm, dry, no rash, pale Head: AT/NC Neck: Trachea midline, supple Eye: normal conjunctiva, sclera clear Cardiovascular: regular rate and rhythm, normal peripheral perfusion Respiratory: Lungs CTA, respirations non labored, breath sounds equal, no w/r/r Chest wall: no deformity Gastrointestinal: soft, NT, ND, no peritoneal signs : Allan in place, clear light yellow urine Extremities: no deformity, 1+ BLE pitting edema Neurological: oriented, LOC appropriate for age, no focal deficits, normal speech Psychiatric: cooperative, affect appropriate for age, good eye contact Tests Performed CT Abdomen/Pelvis w/ Contrast Discharge Plan Discharge Disposition Discharge To, Anticipated II - Home with responsible caregiver Transported by, Anticipated - Family Discharge Diet Discharge Diet(s): Regular (09/05/24 10:07:00) Discharge Medication List Prescriptions acetaminophen-oxycodone 325 mg-2.5 mg oral tablet, 1-2 tab(s), Oral, q8hr, PRN Keflex 5 (more content not included)...[facility] HospitalComment on above:Result Comment: Electronically Signed By: Eldon Monroy III, DO\.br\Date and Time Signed: 09/05/24 10:23 [id number] NoteConsultation Note Patient: VÍCTOR NICHOLS SR Age: 73 years Sex: Male : 1950 Associated Diagnoses: None Author: Gaurav FRANCIS, Ras Villaseñor Results Review General results Today's results 09/04/2024 14:33 EDT Monitor Record Monitor Record 09/04/2024 14:32 EDT Monitor Record Monitor Record 09/04/2024 14:06 EDT Hourly Rounding Yes Promise to Return Yes Comfort Measures [place] application Patient Position Semi-Robbins's, Sitting in bed Environmental Safety Implemented Adequate room lighting, Bed alarm, Bed in low position, Call device within reach, Personal items within reach, Side rails x3, Traffic path in room free of clutter, Wheels locked Yellow socks, arm band, and sign Maintained Elimination Assistance Offered Offered/Declined, Other: mark 09/04/2024 14:02 EDT BMDI Bed Alarm On OutOfBedMode BMDI Bed Brake On On BMDI Bed in Low Position Low BMDI Foot Rail LeftRailDown BMDI Head Rail BothRailsUp BMDI HOB Degrees 42 BMDI Turn Assist Unknown 09/04/2024 14:00 EDT Telemetry Activity/Status Maintained Monitoring Lead II Cardiac Rhythm Normal sinus rhythm 09/04/2024 13:06 EDT Hourly Rounding Yes Promise to Return Yes Comfort Measures [place] application Patient Position Semi-Robbins's, Sitting in bed Environmental Safety Implemented Adequate room lighting, Bed alarm, Bed in low position, Call device within reach, Personal items within reach, Side rails x3, Traffic path in room free of clutter, Wheels locked Yellow socks, arm band, and sign Maintained Elimination Assistance Offered Offered/Declined, Other: mark 09/04/2024 13:02 EDT BMDI Bed Alarm On OutOfBedMode BMDI Bed Brake On On BMDI Bed in Low Position Low BMDI Foot Rail LeftRailDown BMDI Head Rail BothRailsUp BMDI HOB Degrees 42 BMDI Turn Assist Unknown 09/04/2024 12:32 EDT Hourly Rounding Yes Promise to Return Yes Comfort Measures [place] application Patient Position Semi-Robbins's, Sitting in bed Environmental Safety Implemented Adequate room lighting, Bed alarm, Bed in low position, Call device within reach, Personal items within reach, Side rails x3, Traffic path in room free of clutter, Wheels locked Yellow socks, arm band, and sign Maintained Elimination Assistance Offered Offered/Declined, Other: mark 09/04/2024 12:19 EDT Glucose Lvl 98 mg/dL BUN 19 mg/dL Creatinine 1.2 mg/dL eGFR 64 mL/min/1.73 m2 BUN/Creat Ratio 16 Sodium Lvl 136 mmol/L Potassium Lvl 3.8 mmol/L Chloride 103 mmol/L CO2 28 mmol/L AGAP 9 mEq/L Calcium Lvl 8.9 mg/dL 09/04/2024 12:02 EDT BMDI Bed Alarm On OutOfBedMode BMDI Bed Brake On On BMDI Bed in Low Position Low BMDI Foot Rail LeftRailDown BMDI Head Rail BothRailsUp BMDI HOB Degrees 42 BMDI Turn Assist Unknown 09/04/2024 11:51 EDT Preoperative Documents checklist 09/04/2024 11:50 EDT Consent for Anesthesia IntraOperative Documents strips 09/04/2024 11:43 EDT Name of Clinician Contacted Eldon Monroy III, DO Reason for Call Patient Condition Change Clinician Contacted Via Clinician phones nursing staff/caregiver Information Provided to Clinician [address] Víctor Nichols just had a bloody formed stool.. allan bag is clear and yellow Response from Clinician Other: thanks! I would expect him to still have some blood coming out. Let me know if it increases and seems more like an acitve bleed again 09/04/2024 11:40 EDT Hourly Rounding Yes Comfort Measures Comfortable environment Nail Bed Color [place] Nail Bed Description Left Hand [place] Nail Bed Description Right Hand [place] Nail Bed Description Left Foot [place] Nail Bed Description Right Foot [place] Clubbing Present No Capillary Refill Less than 2 seconds Capillary Refill Left Hand Less than 2 seconds Capillary Refill Right Hand Less than 2 seconds Capillary Refill Left Foot Less than 2 seconds Capillary Refill Right Foot Less than 2 seconds Jugular Venous Distention Unable to visualize Heart Rhythm Regular Radial Pulse, Left 2+ Normal Radial Pulse, Right 2+ Normal Dorsalis Pedis Pulse, Left 2+ Normal Dorsalis Pedis Pulse, Right 2+ Normal Edema Localized Left Lower Leg Edema 2+ mild/4mm Right Lower Leg Edema 2+ mild/4mm Left Ankle Edema 2+ mild/4mm Right Ankle Edema 2+ mild/4mm Left Pedal Edema 1+ trace/2mm Right Pedal Edema 1+ trace/2mm Level of Consciousness Alert Respirations Unlabored Respiratory Pattern Regular All Lobes Breath Sounds Clear Lung Aeration Equal Cough None Oxygen Therapy Room air Patient Position Semi-Robbins's Patient Position Semi-Robbins's GI Symptoms Stools, black/bloody Abdomen Description Non-distended, Rounded, Symmetric Abdomen Palpation Non-Tender, Soft Passing Flatus Yes Bowel Sounds All Quadrants Present Urinary Elimination Indwelling catheter Urine Color Yellow Urine Description Clear Bladder Distention Absent Voiding Difficulties Retention Urinary Catheter Indications Management of acute urinary retention/obstruction Urina (more content not included)...[facility] HospitalComment on above: Result Comment: Electronically Signed By: Gaurav FRANCIS, Ras Foley\Date and Time Signed: 09/04/24 15:31 [id number] NoteHistory and Physical Chief Complaint Pt arrives to ED from home with possible rectal bleed and dizziness. Pt was here for a biopsy of prostate, says he woke up out of surgery and was having rectal bleeding, attempts were made in PACU tostop bleeding. Allan present, states whenever I pee, I History of Present Illness 73-year male with a past medical history of CAD status post CABG, dyslipidemia, hypertension, diabetes, diastolic CHF, BPH, COPD/asthma, GERD, VASQUEZ, glaucoma. Patient presented to the emergency room with weakness, dizziness, and rectal bleeding. He underwent a ultrasound-guided prostate biopsy todayon 09/03/[address] Marcos. Indication was elevated PSA and abnormal MRI. The surgery itselfwent well, but patient had issues with rectal bleeding while in PACU. The bleeding was pretty significant. Review of records indicates that they actually inserted a Allan balloon into the rectum, inflated the balloon for pressure, and then eventually removed it with bleeding improving after that. He did have a Allan placed in his bladder with 550 cc of clear urine removed. Patient had been on aspirin and Plavix prior to surgery, but held it for 7 days. He was discharged from PACU to home. Apparently upon getting home he continued to have rectal bleeding to the point where he stated he was saturating diapers. States anytime he tried to eat/drink it seemed to make the bleeding worse. He came back into the ED for evaluation. Rectal exam per ED physician revealed minimal evidence of rectal bleeding. 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 Labs though revealed that he had become acutely hyponatremic at 129, whereas about 12 hours earlier his sodium was normal at 138. It is of note that he had significant polyuria while in the ER. In about the 5 hours that he was down there he put out over 3100 cc ofurine. Renal function good. Hb 11.4. He is on diuretic therapy but has not taken it in over 24 hours (last took it the morning of 09/02/24). He states he currently has significant LE edema and that did not occur until after surgery; he noticed it once he got home and it is not his norm. Review of Systems Constitutional: no fever, no chills, no sweats, + weakness Skin: no jaundice, no rash, no lesions, no petechiae ENMT: no ear pain, no sore throat, no congestion, no hoarseness Respiratory: no shortness of breath, no cough, no orthopnea, no wheezing Cardiovascular: no chest pain, no palpitations, + edema Gastrointestinal: no nausea, no vomiting, no diarrhea, no abdominal pain Genitourinary: no dysuria, no hematuria Musculoskeletal: no trauma, no joint or muscle pain Neurologic: no headache, + dizziness Psychiatric: no depression, + anxiety Heme/Lymph: + bleeding tendency, no bruising tendency Additional ROS info: Except as noted in the above Review of Systems and in the History of Present Illness all other systems have been reviewed and are negative or noncontributory. Scoring Allen Fall Risk Score: 85 High (09/04/24) Physical Exam Vitals & Measurements T: 36.8 ???C(Oral) TMIN: 36.8 ???C(Oral) TMAX: 37.9 ???C(Oral) HR: 67(Peripheral) RR: 18 BP: 124/69SpO2: 99% HT: 157.48 cm HT: 157.48 cm WT: 95.5 kg WT: 95.5 kg General: NAD Skin: warm, dry, no rash, pale Head: AT/NC Neck: Trachea midline, supple Eye: normal conjunctiva, sclera clear Cardiovascular: regular rate and rhythm, normal peripheral perfusion Respiratory: Lungs CTA, respirations non labored, breath sounds equal, no w/r/r Chest wall: no deformity Gastrointestinal: soft, NT, ND, no peritoneal signs : Allan in bag is clear, currently about another 400cc in bag Extremities: no deformity, 1-2+ BLE pitting edema Neurological: oriented, LOC appropriate for age, no focal deficits, normal speech Psychiatric: cooperative, affect appropriate for age, good eye contact Lab Results WBC: 17.5 E9/L High (09/03/24 19:48:00) RBC: 3.7 E12/L Low (09/03/24 19:48:00) HGB: 11.4 gm/dL Low (09/03/24 19:48:00) Hct: 33.9 % Low (09/03/24 19:48:00) MCV: 92.1 fL (09/03/24 19:48:00) MCH: 31.1 pg (09/03/24 19:48:00) MCHC: 33.8 gm/dL (09/03/24 19:48:00) RDW: 13.3 % (09/03/24 19:48:00) Platelet: 237 E9/L (09/03/24 19:48:00) MPV: 9.6 fL (09/03/24 19:48:00) Neutro Auto: 90.7 % High (09/03/24 19:48:00) Lymph Auto: 4.4 % Low (09/03/24 19:48:00) [place] Auto: 4.7 % (09/03/24 19:48:00) Eos Auto: 0 % (09/03/24 19:48:00) Basophil Auto: 0.2 % (09/03/24 19:48:00) Neutro Absolute: 15.9 E9/L High (09/03/24 19:48:00) Lymph Absolute: 0.8 E9/L Low (09/03/24 19:48:00) [place] Absolute: 0.8 E9/L (09/03/24 19:48:00) Eos Absolute: 0 E9/L (09/03/24 19:48:00) Basophil Absolute: 0 E9/L (09/03/24 19:48:00) PT: 12.9 second(s) High (09/03/24 19:48:00) INR: 1.15 (09/03/24 19:48:00) PTT: 28 second(s) (09/03/24 19:48:00) Glucose Lvl: 150 mg/dL (09/03/24 19:48:00) BUN: 16 mg/dL (09/03/24 19:48:00) Creatinine: 1 (more content not included)...[facility] HospitalComment on above:Result Comment: Electronically Signed By: Eldon Monroy III, DObr\Date and Time Signed: 09/04/24 10:07 [id number] NoteHistory and Physical Chief Complaint Pt arrives to ED from home with possible rectal bleed and dizziness. Pt was here for a biopsy of prostate, says he woke up out of surgery and was having rectal bleeding, attempts were made in PACU tostop bleeding. Allan present, states whenever I pee, I History of Present Illness 73-year male with a past medical history of CAD status post CABG, dyslipidemia, hypertension, diabetes, diastolic CHF, BPH, COPD/asthma, GERD, VASQUEZ, glaucoma. Patient presented to the emergency room with weakness, dizziness, and rectal bleeding. He underwent a ultrasound-guided prostate biopsy todayon 09/03/[address] Marcos. Indication was elevated PSA and abnormal MRI. The surgery itselfwent well, but patient had issues with rectal bleeding while in PACU. The bleeding was pretty significant. Review of records indicates that they actually inserted a Allan balloon into the rectum, inflated the balloon for pressure, and then eventually removed it with bleeding improving after that. He did have a Allan placed in his bladder with 550 cc of clear urine removed. Patient had been on aspirin and Plavix prior to surgery, but held it for 7 days. He was discharged from PACU to home. Apparently upon getting home he continued to have rectal bleeding to the point where he stated he was saturating diapers. States anytime he tried to eat/drink it seemed to make the bleeding worse. He came back into the ED for evaluation. Rectal exam per ED physician revealed minimal evidence of rectal bleeding. 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 Labs though revealed that he had become acutely hyponatremic at 129, whereas about 12 hours earlier his sodium was normal at 138. It is of note that he had significant polyuria while in the ER. In about the 5 hours that he was down there he put out over 3100 cc ofurine. Renal function good. Hb 11.4. He is on diuretic therapy but has not taken it in over 24 hours (last took it the morning of 09/02/24). He states he currently has significant LE edema and that did not occur until after surgery; he noticed it once he got home and it is not his norm. Review of Systems Constitutional: no fever, no chills, no sweats, + weakness Skin: no jaundice, no rash, no lesions, no petechiae ENMT: no ear pain, no sore throat, no congestion, no hoarseness Respiratory: no shortness of breath, no cough, no orthopnea, no wheezing Cardiovascular: no chest pain, no palpitations, + edema Gastrointestinal: no nausea, no vomiting, no diarrhea, no abdominal pain Genitourinary: no dysuria, no hematuria Musculoskeletal: no trauma, no joint or muscle pain Neurologic: no headache, + dizziness Psychiatric: no depression, + anxiety Heme/Lymph: + bleeding tendency, no bruising tendency Additional ROS info: Except as noted in the above Review of Systems and in the History of Present Illness all other systems have been reviewed and are negative or noncontributory. Scoring Allen Fall Risk Score: 85 High (09/04/24) Physical Exam Vitals & Measurements T: 36.8 ???C(Oral) TMIN: 36.8 ???C(Oral) TMAX: 37.9 ???C(Oral) HR: 67(Peripheral) RR: 18 BP: 124/69SpO2: 99% HT: 157.48 cm HT: 157.48 cm WT: 95.5 kg WT: 95.5 kg General: NAD Skin: warm, dry, no rash, pale Head: AT/NC Neck: Trachea midline, supple Eye: normal conjunctiva, sclera clear Cardiovascular: regular rate and rhythm, normal peripheral perfusion Respiratory: Lungs CTA, respirations non labored, breath sounds equal, no w/r/r Chest wall: no deformity Gastrointestinal: soft, NT, ND, no peritoneal signs : Allan in bag is clear, currently about another 400cc in bag Extremities: no deformity, 1-2+ BLE pitting edema Neurological: oriented, LOC appropriate for age, no focal deficits, normal speech Psychiatric: cooperative, affect appropriate for age, good eye contact Lab Results WBC: 17.5 E9/L High (09/03/24 19:48:00) RBC: 3.7 E12/L Low (09/03/24 19:48:00) HGB: 11.4 gm/dL Low (09/03/24 19:48:00) Hct: 33.9 % Low (09/03/24 19:48:00) MCV: 92.1 fL (09/03/24 19:48:00) MCH: 31.1 pg (09/03/24 19:48:00) MCHC: 33.8 gm/dL (09/03/24 19:48:00) RDW: 13.3 % (09/03/24 19:48:00) Platelet: 237 E9/L (09/03/24 19:48:00) MPV: 9.6 fL (09/03/24 19:48:00) Neutro Auto: 90.7 % High (09/03/24 19:48:00) Lymph Auto: 4.4 % Low (09/03/24 19:48:00) [place] Auto: 4.7 % (09/03/24 19:48:00) Eos Auto: 0 % (09/03/24:48:00) Basophil Auto: 0.2 % (09/03/24 19:48:00) Neutro Absolute: 15.9 E9/L High (09/03/24 19:48:00) Lymph Absolute: 0.8 E9/L Low (09/03/24 19:48:00) [place] Absolute: 0.8 E9/L (09/03/24 19:48:00) Eos Absolute: 0 E9/L (09/03/24 19:48:00) Basophil Absolute: 0 E9/L (09/03/24:48:00) PT: 12.9 second(s) High (09/03/24 19:48:00) INR: 1.15 (09/03/24 19:48:00) PTT: 28 second(s) (09/03/24 19:48:00) Glucose Lvl: 150 mg/dL (09/03/24 19:48:00) BUN: 16 mg/dL (09/03/24 19:48:00) Creatinine: 1 (more content not included)...[facility]:Result Comment: Electronically Signed By: Ainsley Prabhakar MD\.br\Date and Time Signed: 09/04/24 02:43 [id number] NoteProgress Note-Nurse 0917-- Pt back in ASU post op from surgery, Aida RN at bedside assessing pt. Pt denies needs or concerns. 0940-- Pt attempted to urinate, unsuccessful. Moderate amount of blood in toilet noted. 1000-- Pt attempted to urinate again, unsuccessful, blood noted again. 1030-- Pt attempted to urinate again and was unsuccessful, significant amount of blood noted in toilet. Pt assisted back to room, noted blood dripping on the floor. 1055-- Jessica SAL spoke with Dr Bridges and updated him on pt being unable to urinate after three attempts, bleeding from rectum. 1100-- Dr Bridges at bedside, applying pressure to pt's rectum. States to recheck if there are any signs of bleeding in 20 min. States to bladder scan pt, and if >300ml, straight cath. States to pt to keep drinking fluids. Jessica SAL obtained VS at this time. 1130-- Bladder scanned 209ml for pt, blood noted from rectum. 1200-- This nurse spoke with Katie SAL in PACU, she called into the OR to notify Dr Bridges to check on pt and that he is still bleeding. 1215-- Dr Bridges at bedside, inserted allan catheter into rectum and inflated balloon to apply pressure. Removed catheter. 1245-- Jessica SAL at bedside checking on pt, no s/s of bleeding, encouraged pt to ambulate to see ifbleeding would restart, no bleeding noted. 1310-- Pt attempted to void, rectum started bleeding again, half-dollar size blood clot noted. 1320-- Dr Bridges at bedside to check on pt, aware that bleeding has started again, told pt he willbe back. Jessica SAL obtained VS. 1415-- Dr Bridges at bedside, inserted 16F allan catheter, leg bag attached, drained out 550ml of clear, yellow urine. 1500-- Dr Bridges checked on pt, per pt, told pt to follow up at his office tomorrow so he can remove catheter and to restart blood thinners in 5 days. VS obtained. 1520-- Pt wheeled to patient pickup entrance for discharge.[facility] Evaluation + Plan noteExtracted from: Title:ANES Pre-operative Note 2022 Author:Vernon Shah Date:09/03/24 Plan [place] [employer]est[employer] (ASA) physical status classification: Class III. Anesthetic Preoperative Plan: Anesthesia General. [facility] 05-01-2025 Hospital Discharge instructions Patient Education 09/03/2024 09:13:15 Cook- Post-Op Instructions for Prostate Biopsy(CUSTOM) [facility] [place], [place] Post-Operative Instructions for Prostate Biopsy *Even though there are no visible incisions, multiple prostate biopsies have been taken through therectum and you need to follow some instructions to minimize the risks of bleeding *You may see some blood in your urine and stool for up to 1 week (and blood in the semen for several months) DIET *You may resume your normal diet, but you may want to avoid alcohol, carbonated drinks, caffeine, and spicy foods, which may increase the irritation from the surgery and the catheter. *Drink plenty of water to keep the urine clear. ACTIVITY *You should limit any physical activity for about 48 hours *No heavy lifting or straining (10 pound limit) *No driving a car and limit long car rides for 2 days *No strenuous exercise *No sexual intercourse until this is discussed with your doctor BOWELS Try to keep your bowel movements soft to minimize straining to have a bowel movement. You may use astool softener or over the counter laxative if needed. Difficult bowel movements may lead to straining and bleeding from the prostate. MEDICATIONS *You may resume your home medications unless instructed otherwise *Hold aspirin, ibuprofen, Coumadin (warfarin) and other blood thinners for about two days or until there is no active bleeding unless otherwise instructed *Finish the antibiotic which you have already started Things to watch for which would require an Emergency Room visit or call 911: (this is not a complete list) *Persistent or heavy bleeding or blood clots from the rectum or in the urine *Inability to urinate *Fever over 101.5 degrees Fahrenheit, with or without chills *Severe drug reactions with itching, hives, or rash *Tenderness or swelling of the calves, chest pain, or shortness of breath Please call the office to arrange for your post-operative appointment in 1-2 weeks ([phone] or [phone]) 09/03/2024 09:12:31 Post Op Patient Instructions - FT (CUSTOM) Follow Up Care 07/20/2024 11:10:39 With:RUDI PINON Address:Unknown When:2 weeks [facility] [id number] NotePatient Education - Text [facility] [place], [place] Post-Operative Instructions for Prostate Biopsy *Even though there are no visible incisions, multiple prostate biopsies have been taken through therectum and you need to follow some instructions to minimize the risks of bleeding *You may see some blood in your urine and stool for up to 1 week (and blood in the semen for several months) DIET *You may resume your normal diet, but you may want to avoid alcohol, carbonated drinks, caffeine, and spicy foods, which may increase the irritation from the surgery and the catheter. *Drink plenty of water to keep the urine clear. ACTIVITY *You should limit any physical activity for about 48 hours *No heavy lifting or straining (10 pound limit) *No driving a car and limit long car rides for 2 days *No strenuous exercise *No sexual intercourse until this is discussed with your doctor BOWELS Try to keep your bowel movements soft to minimize straining to have a bowel movement. You may use astool softener or over the counter laxative if needed. Difficult bowel movements may lead to straining and bleeding from the prostate. MEDICATIONS *You may resume your home medications unless instructed otherwise *Hold aspirin, ibuprofen, Coumadin (warfarin) and other blood thinners for about two days or until there is no active bleeding unless otherwise instructed *Finish the antibiotic which you have already started Things to watch for which would require an Emergency Room visit or call 911: (this is not a complete list) *Persistent or heavy bleeding or blood clots from the rectum or in the urine *Inability to urinate *Fever over 101.5 degrees Fahrenheit, with or without chills *Severe drug reactions with itching, hives, or rash *Tenderness or swelling of the calves, chest pain, or shortness of breath Please call the office to arrange for your post-operative appointment in 1-2 weeks ([phone] or [phone]) [facility] Note Progress Note-Physician Patient: VÍCTOR NICHOLS SR Age: 73 years Sex: Male : 1950 Associated Diagnoses: None Author: Vernon Mendez MD Preoperative Information Anesthesia Preop Info: Time patient last ate or drank 09/03/2024 00:00:00. Anesthesia history: Patient history: None. Family history+: None. Informed consent: Signed by patient. Re-evaluation prior to induction: Initial evaluation reviewed: No significant change. Review of Systems Eye Ear/Nose/Mouth/Throat Respiratory: No shortness of breath, No cough, No wheezing. Cardiovascular: No chest pain, No palpitations, No syncope. Gastrointestinal: No heartburn. Musculoskeletal Neurologic Health Status Allergies: Allergic Reactions (Selected) Severity Not Documented Atorvastatin- Hives and unknown. Fentanyl topical- Rash, itching, unknown and eruption. Morphine- Itching, itching and unknown. Ranolazine- Hives and unknown. Venlafaxine- Unknown and comment:tired, no appetite. Vilanterol- Dizziness., Allergies (6) Active Severity Reaction atorvastatin Unknown, Hives fentanyl topical Rash, Eruption, Unknown, Itching venlafaxine Comment:tired, no appetite, Unknown morphine Itching, Itching, Unknown ranolazine Hives, Unknown vilanterol Dizziness Current medications: (Selected) Inpatient Medications Ordered HYDROmorphone 1 mg/mL injectable solution: 0.2 mg = 0.2 mL, Injection, IV Push, q2min PRN Pain for 10 dose(s), Stop date Limited # of times, Routine, Start date 09/03/24 7:45:00 EDT, 09/03/24 7:45:00EDT Sodium Chloride 0.9% IV Ritu 1000 mL 1,000 mL: 1,000 mL, IV, 150 mL/hr, Routine, Start date 256:30:00 EDT, 6.7 hour(s), Total volume (mL): 1,000, 102 kg, 2.16, m2 cefazolin additive + Sodium Chloride 0.9% intravenous solution 50 mL: 2 gm = 1 EA, IV Piggyback, Once, Stop date 09/03/24 7:00:00 EDT, Routine, Start date 09/03/24 7:00:00 EDT, 100 mL/hr, Infuse over30 minute(s), HOLD if patient has history of anaphylactic allergic reaction to Penicillin., 09/03/24 6:30:00 EDT ceftriaxone additive + Sodium Chloride 0.9% intravenous solution 50 mL: 1,000 mg = 1 EA, IV Piggyback, Once, Stop date 09/03/24 7:00:00 EDT, Routine, Start date 09/03/24 7:00:00 EDT, 100 mL/hr, Infuse over 30 minute(s), 09/03/24 6:30:00 EDT promethazine additive 6.25 mg + Sodium Chloride 0.9% IV Ritu 50 mL (INT) 50 mL: IV Piggyback, Once PRN Nausea/Vomiting, Routine, Start date 09/03/24 7:45:00 EDT, 150.75 mL/hr, Infuse over 20 minute(s), 09/03/24 7:45:00 EDT Prescriptions Prescribed tamsulosin 0.4 mg Cap: 0.4 mg = 1 cap(s), Oral, Daily, # 30 cap(s), Refills(s) 11, Pharmacy: [facility]/pharmacy #[id number], 164, cm, 07/16/24 12:55:00 EDT, Height/Length Dosing, 102, kg, 07/16/24 12:55:00 EDT, Weight Dosing Documented Medications Documented Albuterol (Eqv-Ventolin HFA) 90 mcg/inh inhalation aerosol: 2 inh, Inhalation, q6hr Shortness of breath or wheezing Potassium Chloride (Qji-Qwxc-Uog 10) 10 mEq oral tablet, extended release: 10 mEq = 1 tab(s), Oral,Daily aspirin 81 mg oral capsule: 81 mg = 1 cap(s), Oral, Daily atorvastatin 40 mg Tab: 40 mg = 1 tab(s), Oral, Daily clopidogrel 75 mg Tab: 75 mg = 1 tab(s), Oral, Daily docusate sodium 100 mg Cap: 100 mg = 1 cap(s), Oral, Daily, PRN for constipation furosemide 20 mg Tab: 20 mg = 1 tab(s), Oral, Daily hydrochlorothiazide-lisinopril 12.5 mg-10 mg Tab: 1 tab(s), Oral, Daily isosorbide mononitrate 120 mg ER Tab: 120 mg = 1 tab(s), Oral, qAM latanoprost Opth 0.005% Rtiu: 1 drop(s) metoprolol succinate 25 mg ER Tab: 25 mg = 1 tab(s), Oral, Daily nitroglycerin: 0.4 mg, SubLingual, q5min omeprazole 20 mg Cap-DR: 20 mg = 1 cap(s), Oral, Daily, Home Medications (14) Active Albuterol (Eqv-Ventolin HFA) 90 mcg/inh inhalation aerosol 2 inh, PRN, Inhalation, q6hr aspirin 81 mg oral capsule 81 mg = 1 cap(s), Oral, Daily atorvastatin 40 mg Tab 40 mg = 1 tab(s), Oral, Daily clopidogrel 75 mg Tab 75 mg = 1 tab(s), Oral, Daily docusate sodium 100 mg Cap 100 mg = 1 cap(s), PRN, Oral, Daily furosemide 20 mg Tab 20 mg = 1 tab(s), Oral, Daily hydrochlorothiazide-lisinopril 12.5 mg-10 mg Tab 1 tab(s), Oral, Daily isosorbide mononitrate 120 mg ER Tab 120 mg = 1 tab(s), Oral, qAM latanoprost Opth 0.005% Ritu 1 drop(s) metoprolol succinate 25 mg ER Tab 25 mg = 1 tab(s), Oral, Daily nitroglycerin 0.4 mg, SubLingual, q5min omeprazole 20 mg Cap-DR 20 mg = 1 cap(s), Oral, Daily Potassium Chloride (Rwp-Nbhf-Gbr 10) 10 mEq oral tablet, extended release 10 mEq = 1 tab(s), Oral, Daily tamsulosin 0.4 mg Cap 0.4 mg = 1 cap(s), Oral, Daily , Medications (5) Active Scheduled: (2) ceFAZolin + Sodium Chloride 0.9% Minibag 50 mL 2 gm 1 EA, IV Piggyback, Once ceftriaxone + Sodium Chloride 0.9% Minibag 50 mL 1,000 mg 1 EA, IV Piggyback, Once Continuous: (1) Sodium Chloride 0.9% 1,000 mL 1,000 mL, IV, 150 mL/hr PRN: (2) HYDROmorphone 1 mg/mL SOLN [F] 0.2 mg 0.2 mL, IV Push, q2min prome (more content not included)...[facility]Comment on above: Result Comment: Electronically Signed By: Andrea FRANCIS, Vernon Galvan\.br\Date and Time Signed: 09/03/24 07:51 [id number] Evaluation + Plan note* Assessment & Plan Note - ESPINOZA Macedo - 09/01/2024 12:56 PM EDTAssociated Problem(s): Edema Left lower extremity edema continues to progress Has right lower extremity edema on some days . No noted benefit with initiation of diuretic. He also has increasing abdominal girth, progressive worsening dyspnea on exertion. Recent echocardiogram with normal LV and RV function. No evidence of pulmonary hypertension. August 2024: USN no DVT Did not change to demadex as instructed last week Has not been taking medications for 2 days. Unclear if he took lasix 40mg daily as previously reported [facility] Work Phone: [phone] 100-686604-29-2025 Miscellaneous Notes* Assessment & Plan Note - ESPINOZA Macedo - 09/01/2024 12:56 PM EDTAssociated Problem(s): Edema Left lower extremity edema continues to progress Has right lower extremity edema on some days . No noted benefit with initiation of diuretic. He also has increasing abdominal girth, progressive worsening dyspnea on exertion. Recent echocardiogram with normal LV and RV function. No evidence of pulmonary hypertension. August 2024: USN no DVT Did not change to demadex as instructed last week Has not been taking medications for 2 days. Unclear if he took lasix 40mg daily as previously reported * Assessment & Plan Note - ESPINOZA Macedo - 09/01/2024 12:55 PM EDT Associated Problem(s): BMI 40.0-44.9, adult (Multi) Reviewed the merits of healthy lifestyle choices on overall cardiovascular health. * Assessment & Plan Note - ESPINOZA Macedo - 09/01/2024 12:55 PM EDT Associated Problem(s): Essential hypertension Optimal in office * Assessment & Plan Note - ESPINOZA Macedo - 09/01/2024 12:55 PM EDT Associated Problem(s): HLD (hyperlipidemia) Moderate intensity statin * Assessment & Plan Note - ESPINOZA Macedo - 09/01/2024 12:55 PM EDT Associated Problem(s): ASCVD (arteriosclerotic cardiovascular disease) Remote coronary artery bypass grafting October 2019 cardiac cath LLAMAS-LAD patent SVG-diagonal patent Newly occluded SVG-OM 2 Known SOLUTION MIXER SVG-RCA and radial-OM LVEF 65% August 2024 MPI no ischemia, no infarct Current daily activity less than 4 METS with reports of progressive dyspnea on exertion and fatigability. * Assessment & Plan Note - ESPINOZA Macedo - 09/01/2024 12:54 PM EDT Associated Problem(s): Cardiac and Vasculature August 2024 TTE LVEF 65-70% MR trace Normal RV function RVSP 23 mmHg documented in this [facility] Work Phone: [phone] 800-299004-29-2025 Evaluation + Plan note* Assessment & Plan Note - ESPINOZA Macedo - 09/01/2024 12:55 PM EDTAssociated Problem(s): BMI 40.0-44.9, adult (Multi) Reviewed the merits of healthy lifestyle choices on overall cardiovascular health. [facility] Work Phone: [phone] 442-966804-29-2025 Evaluation + Plan note* Assessment & Plan Note - ESPINOZA Macedo - 09/01/2024 12:55 PM EDTAssociated Problem(s): Essential hypertension Optimal in office [facility] Work Phone: [phone] Evaluation + Plan note* Assessment & Plan Note - ESPINOZA Macedo - 09/01/2024 12:55 PM EDTAssociated Problem(s): HLD (hyperlipidemia) Moderate intensity statin [facility] Work Phone: [phone] 178-863104-29-2025 Evaluation + Plan note* Assessment & Plan Note - ESPINOZA Macedo - 09/01/2024 12:55 PM EDTAssociated Problem(s): ASCVD (arteriosclerotic cardiovascular disease) Remote coronary artery bypass grafting October 2019 cardiac cath LLAMAS-LAD patent SVG-diagonal patent Newly occluded SVG-OM 2 Known SOLUTION MIXER SVG-RCA and radial-OM LVEF 65% August 2024 MPI no ischemia, no infarct Current daily activity less than 4 METS with reports of progressive dyspnea on exertion and fatigability. [facility] Work Phone: [phone] Evaluation + Plan note* Assessment & Plan Note - ESPINOZA Macedo - 09/01/2024 12:54 PM EDTAssociated Problem(s): Cardiac and Vasculature August 2024 TTE LVEF 65-70% MR trace Normal RV function RVSP 23 mmHg [facility] Work Phone: [phone] History of Present illness Narrative* ESPINOZA Macedo - 09/01/2024 8:00 AM EDT Chief Complaint I am nervous about the procedure this week Reason for Visit 1 week follow-up Patient presents to the office today for outpatient follow-up for fluid retention and testing results. Last evaluated in clinic by myself 1 week ago. At that time he presented with weight gain and continued increased left lower extremity edema, increased abdominal girth, progressive dyspnea on exertion. Subsequent testing included: CT of the chest no evidence of PE Ultrasound left lower extremity no DVT BNP 55 Lasix was transitioned over to Demadex but he was not compliant Presents today ambulatory with steady gait. Accompanied by spouse Patient denies any hospitalizations or significant changes to interval medical history since last office follow-up. History of Present Illness Patient presents to the office today where he reports he was told to stop his medications prior to his prostate procedure and he has not taken any medications in 2 days. Discussed with him that he was likely only instructed to interrupt Plavix. He also reports that he did not stop Demadex, has not been taking Lasix. He has put on another 3 pounds. Instructed him that he is retaining fluid becauseof noncompliance with diuretic. He continues to report dyspnea on exertion but no orthopnea no PND.Is comfortable at rest. Denies any exertional chest pain. Patient reports that overall has no complaint(s) of chest pain, chest pressure/discomfort, exertional chest pressure/discomfort, irregular heart beat, and palpitations At this time, No clear cardiovascular etiology for fluid retention likely due to noncompliance withdiuretic. His LV and RV function are normal, recent BNP 55 which is a good indicator for no evidence of heart failure. He is on no offending medications. Instructed that he really needs to be compliant with diuretic. Review of Systems Cardiovascular: Positive for dyspnea on exertion and leg swelling. Negative for chest pain, irregular heartbeat, near-syncope, orthopnea, palpitations, paroxysmal nocturnal dyspnea and syncope. Visit Vitals BP 110/80 (BP Location: Left arm, Patient Position: Sitting) Pulse 62 Ht 1.575 m (5' 2 ) Wt 103 kg (228 lb) BMI 41.70 kg/m Smoking Status Former BSA 2.12 m Physical Exam Vitals and nursing note reviewed. Constitutional: Appearance: Normal appearance. Cardiovascular: Rate and Rhythm: Normal rate and regular rhythm. Heart sounds: Normal heart sounds. Pulmonary: Effort: Pulmonary effort is normal. Breath sounds: Normal breath sounds. Musculoskeletal: Cervical back: Full passive range of motion without pain. Right lower leg: No edema. Left lower le+ Edema present. Skin: General: Skin is cool. Neurological: Mental Status: He is alert and oriented to person, place, and time. Psychiatric: Attention and Perception: Attention normal. Mood and Affect: Mood normal. Behavior: Behavior is cooperative. ALLERGIES: Morphine, Ranolazine, Spironolactone, Utnnjuo-lzs-mct reductase inhibitors, and Fentanyl Current Outpatient Medications Medication Instructions albuterol-budesonide (Airsupra) 90-80 mcg/actuation inhaler 2 puffs, Every 6 hours PRN albuterol 2.5 mg, Every 4 hours PRN aspirin 81 mg EC tablet 1 tablet, Daily atorvastatin (LIPITOR) 40 mg, oral, Nightly bimatoprost (Lumigan) 0.03 % ophthalmic solution 1 drop, Nightly clopidogrel (PLAVIX) 75 mg, oral, Daily isosorbide mononitrate ER (IMDUR) 120 mg, oral, Daily lisinopriL-hydrochlorothiazide 10-12.5 mg tablet 1 tablet, oral, Daily metoprolol succinate XL (TOPROL-XL) 25 mg, oral, Daily nitroglycerin (Nitrostat) 0.[address] under the tongue. omeprazole (PRILOSEC) 20 mg, Daily potassium chloride CR (Klor-Con) 10 mEq ER tablet 10 mEq, oral, Daily, Do not crush, chew, or split. tamsulosin (FLOMAX) 0.4 mg, Daily torsemide (DEMADEX) 20 mg, oral, Daily Assessment: Cardiac and Vasculature August 2024 TTE LVEF 65-70% MR trace Normal RV function RVSP 23 mmHg ASCVD (arteriosclerotic cardiovascular disease) Remote coronary artery bypass grafting October 2019 cardiac cath LLAMAS-LAD patent SVG-diagonal patent Newly occluded SVG-OM 2 Known SOLUTION MIXER SVG-RCA and radial-OM LVEF 65% August 2024 MPI no ischemia, no infarct Current daily activity less than 4 METS with reports of progressive dyspnea on exertion and fatigability. HLD (hyperlipidemia) Moderate intensity statin Essential hypertension Optimal in office BMI 40.0-44.9, adult (Multi) Reviewed the merits of healthy lifestyle choices on overall cardiovascular health. Edema Left lower extremity edema continues to progress Has right lower extremity edema on some days . No noted benefit with initiation of diuretic. He also has increasing abdominal girth, progressive worsening dyspnea on exertion. Recent echocardiogram with normal LV and RV function. No evidence of pulmonary hypertension. August 2024: USN no DVT Did not change to demadex as instructed last week Has not been taking medications for 2 days. Unclear if he took lasix 40mg daily as previously reported Plan: Through informed decision making process incorporating patients unique circumstances, the followingtreatment plan will be initiated: 1. Prescription drug management of cardiovascular medication for efficacy, adherence to treatment, side effect assessment and polypharmacy. Current treatment clinically warranted and to continue without modifications. 2. Return for follow-up; in the interim, contact the office if new symptoms arise. Keep scheduled follow up with Dr. Fuentes Ch MSN, CLOTH INSPECTOR-[employer]PLICATION[employer] ENGINEER, PMHNP-[facility] [place], [place] Please excuse any errors in grammar or translation related to this dictation. Voice recognition software was utilized to prepare this document. documented in this [facility] Work Phone: [phone] Instructions* Patient Instructions* ESPINOZA Macedo - 09/01/2024 8:00 AM EDT Please bring all medicines, vitamins, and herbal supplements with you when you come to the office. Prescriptions will not be filled unless you are compliant with your follow up appointments or have a follow up appointment scheduled as per instruction of your physician. Refills should be requested at the time of your visit. PLAN: Through informed decision making process incorporating patients unique circumstances, the followingtreatment plan will be initiated: 1. Prescription drug management of cardiovascular medication for efficacy, adherence to treatment, side effect assessment and polypharmacy. Current treatment clinically warranted and to continue without modifications. 2. Return for follow-up; in the interim, contact the office if new symptoms arise. Keep scheduled follow up with Dr. Dill documented in this [facility] Work Phone: 1(817) 297-961904-23-2025 [facility] [address] [place] [address] Ultrasound Report Signed Patient: Víctor Nichols Sr MR#: [id number] : 1950 Acct:[id number] Age/Sex: 73 / M ADM Date: 5 Loc: Room: Type: [facility] Attending Dr: Jairo Ch APRN Ordering Provider: Jairo Ch APRN Date of Service: 08/25/24 US/US venous duplex LE LT: R60.0, R60.9 Copies to: Jairo Ch APRN~ LEFT LOWER EXTREMITY VENOUS DUPLEX INDICATION: Leg edema. Unilateral left lower extremity venous duplex Doppler study was obtained utilizing B-mode, color-flow and spectral Doppler. FINDINGS: The left common femoral, femoral, and popliteal veins showed adequatecompressibility, color-flow and augmentation. The left posterior tibial and peroneal veins were compressible, as well asproximal greater saphenous vein. The contralateral right common femoral vein was compressible with color-flow andaugmentation. US/US venous duplex LE LT IMPRESSION: NO EVIDENCE OF DEEP VENOUS THROMBOSIS IN THE LEFT LOWER EXTREMITY. NO SUPERFICIAL THROMBOPHLEBITIS WAS NOTED. There is an anechoic structure identified in the left popliteal fossa measuring 3.5 x 1.1cm. This may represent a Escobar's cyst. Impression dictated by: Peter Aguilar MD08/26/2024 3:12 PM Dictation Location: [place] [address] Tech: Shelly Allison Transcribed By: PONCHO 08/26/241511 Dictated By: Peter Aguilar MD 08/26/241510 Signed By: 08/26/241511 [facility] Work Phone: [phone]) [phone] Evaluation + Plan note* Assessment & Plan Note - ESPINOZA Macedo - 08/26/2024 2:51 PM EDTAssociated Problem(s): Edema Left lower extremity edema continues to progress Has right lower extremity edema on some days . No noted benefit with initiation of diuretic. He also has increasing abdominal girth, progressive worsening dyspnea on exertion. Recent echocardiogram with normal LV and RV function. No evidence of pulmonary hypertension. [facility] Work Phone: 1([phone]) 554-298004-23-2025 Evaluation + Plan note* Assessment & Plan Note - ESPINOZA Macedo - 08/26/2024 2:51 PM EDTAssociated Problem(s): Shortness of breath Continues to report increasing shortness of breath No orthopnea, questionable PND. [facility] Work Phone: [phone]) [phone] Miscellaneous Notes* Assessment & Plan Note - ESPINOZA Macedo - 08/26/2024 2:51 PM EDTAssociated Problem(s): Edema Left lower extremity edema continues to progress Has right lower extremity edema on some days . No noted benefit with initiation of diuretic. He also has increasing abdominal girth, progressive worsening dyspnea on exertion. Recent echocardiogram with normal LV and RV function. No evidence of pulmonary hypertension. * Assessment & Plan Note - ESPINOZA Macedo - 08/26/2024 2:51 PM EDT Associated Problem(s): Shortness of breath Continues to report increasing shortness of breath No orthopnea, questionable PND. * Assessment & Plan Note - ESPINOZA Macedo - 08/26/2024 2:50 PM EDT Associated Problem(s): BMI 40.0-44.9, adult (Multi) Reviewed the merits of healthy lifestyle choices on overall cardiovascular health. * Assessment & Plan Note - ESPINOZA Macedo - 08/26/2024 2:50 PM EDT Associated Problem(s): Essential hypertension Optimal in office * Assessment & Plan Note - ESPINOZA Macedo - 08/26/2024 2:50 PM EDT Associated Problem(s): HLD (hyperlipidemia) Moderate intensity statin * Assessment & Plan Note - ESPINOZA Macedo - 08/26/2024 2:50 PM EDT Associated Problem(s): ASCVD (arteriosclerotic cardiovascular disease) Remote coronary artery bypass grafting October 2019 cardiac cath LLAMAS-LAD patent SVG-diagonal patent Newly occluded SVG-OM 2 Known SOLUTION MIXER SVG-RCA and radial-OM LVEF 65% August 2024 MPI no ischemia, no infarct Current daily activity less than 4 METS with reports of progressive dyspnea on exertion and fatigability. * Assessment & Plan Note - ESPINOZA Macedo - 08/26/2024 2:49 PM EDT Associated Problem(s): Cardiac and Vasculature August 2024 TTE LVEF 65-70% MR trace Normal RV function RVSP 23 mmHg [facility] Work Phone: [phone]) [phone] Evaluation + Plan note* Assessment & Plan Note - ESPINOZA Macedo - 08/26/2024 2:50 PM EDTAssociated Problem(s): BMI 40.0-44.9, adult (Multi) Reviewed the merits of healthy lifestyle choices on overall cardiovascular health. [facility] Work Phone: 1([phone]) 308-722604-23-2025 Evaluation + Plan note* Assessment & Plan Note - ESPINOZA Macedo - 08/26/2024 2:50 PM EDTAssociated Problem(s): Essential hypertension Optimal in office [facility] Work Phone: [phone] Evaluation + Plan note* Assessment & Plan Note - ESPINOZA Macedo - 08/26/2024 2:50 PM EDTAssociated Problem(s): HLD (hyperlipidemia) Moderate intensity statin [facility] Work Phone: [phone]) 573-757804-23-2025 Evaluation + Plan note* Assessment & Plan Note - ESPINOZA Macedo - 08/26/2024 2:50 PM EDTAssociated Problem(s): ASCVD (arteriosclerotic cardiovascular disease) Remote coronary artery bypass grafting October 2019 cardiac cath LLAMAS-LAD patent SVG-diagonal patent Newly occluded SVG-OM 2 Known SOLUTION MIXER SVG-RCA and radial-OM LVEF 65% August 2024 MPI no ischemia, no infarct Current daily activity less than 4 METS with reports of progressive dyspnea on exertion and fatigability. [facility] Work Phone: [phone] Evaluation + Plan note* Assessment & Plan Note - ESPINOZA Macedo - 08/26/2024 2:49 PM EDTAssociated Problem(s): Cardiac and Vasculature August 2024 TTE LVEF 65-70% MR trace Normal RV function RVSP 23 mmHg [facility] Work Phone: 1([phone] 171-532704-22-2025 Radiology Diagnostic study [facility] [place] [address] [place] [address] CT Scan Report Signed Patient: Víctor Nichols MR#: [id number] : 1950 Acct:[id number] Age/Sex: 73 / M ADM Date: 5 Loc: Room: Type: [facility] Attending Dr: Jairo Ch APRN Copies to: Jairo Ch APRN~ Ordering Provider: Jairo Ch APRN Date of Service: 08/25/24 CT/CT angio chest PE protocol: R60.[address] PULMONARY ANGIOGRAM WITH CONTRAST CLINICAL HISTORY: Shortness of breath, tachycardia and left lower extremity edema COMPARISON: None TECHNIQUE: Spiral images were obtained through the chest following intravenous administration of 90mL of Isovue-370. Images were reviewed using both narrow and wide window settings. Sagittal, coronal and 3 D volume-rendered reconstructions were performed and reviewed. This CT exam was performed using one or more following dose reduction techniques: Automated exposure control, adjustment of the mA and/or kV according to patient size, or use of iterative reconstruction technique. FINDINGS: Median sternotomy wires are present. The heart is borderline enlarged. There is no pericardial effusion. There is coronary artery disease. No aortic aneurysm or dissection is seen. There isadequate opacification of the pulmonary arteries. No emboli are identified. No pathologic lymphadenopathy is seen. Minor gynecomastia is seen. Degenerative changes are visualized at the spine. There i s also lower cervical fusion. Minimal scarring or atelectasis is present. There is no consolidation, effusionor pneumothorax. Limited cuts through the upper abdomen show no contributory abnormality. CT/CT angio chest PE protocol IMPRESSION: NO CT EVIDENCE OF PULMONARY EMBOLISM. BORDERLINE CARDIOMEGALY. NO ACUTE INTRATHORACIC FINDINGS. Impression dictated by: Ludivina Burdick M.D.08/25/2024 4:52 PM Dictation Location: [place] [address] Transcribed By: [facility] 08/25/241651 Dictated By: Ludivina Burdick MD 08/25/241645 Signed By: 08/25/241651 [facility] Work Phone: [phone] History of Present illness Narrative* Jairo Samuel Ch, CLOTH INSPECTOR-[employer]ES APPLICATIONS ENGINEER - 08/25/2024 2:00 PM EDT Chief Complaint Some still so short of breath and my legs are swelling Reason for Visit 1 month follow-up Patient presents to the office today for outpatient follow-up for edema, testing follow-up and medication change. Last evaluated in clinic by myself 1 month ago. At that time he had increasing lower extremity edema. I added Lasix 40 mg daily he reports compliance but no noted benefit. Subsequent testing includedunremarkable perfusion study and echocardiogram. Presents today ambulatory with steady gait. Accompanied by patient Patient denies any hospitalizations or significant changes to interval medical history since last office follow-up. He presents today with request for cardiac risk stratification prior to MRI fusion biopsy of the prostate scheduled for September 03, 2024. History of Present Illness Patient presents to the office today where he continues to report significant dyspnea on exertion, increased abdominal girth and increased left lower extremity edema. He states this has been increasing over the last number of months. He has had no benefit from Lasix. He is not on any offending medication. He tries to keep his leg elevated. He is mildly dyspneic at rest. Denies any prior pulmonaryhistory. Has sleep apnea but is not able to tolerate CPAP machine. No prior PAD workup. Patient reports that overall has no complaint(s) of chest pain, chest pressure/discomfort, claudication, exertional chest pressure/discomfort, irregular heart beat, and near-syncope At this time, remain unclear as to what is causing volume overload. His weight is up an additional 8 pounds. Due to dyspnea at rest, progressive dyspnea on exertion we will just check CT to rule out pulmonary embolism and ultrasound of that lower extremity to make sure there is no DVT. Will transition Lasix over to Demadex for better bioavailability. Check his labs along with BNP. For now, really do not believe he could tolerate surgical procedure. I will try to diurese him a little bit more and return to clinic next week to make decision. Review of Systems Cardiovascular: Positive for leg swelling. Negative for chest pain, dyspnea on exertion, irregular heartbeat, near-syncope, orthopnea, palpitations, paroxysmal nocturnal dyspnea and syncope. Respiratory: Positive for sleep disturbances due to breathing. Visit Vitals BP 120/62 (BP Location: Left arm, Patient Position: Sitting) Pulse 68 Ht 1.575 m (5' 2 ) Wt 102 kg (225 lb) BMI 41.15 kg/m Smoking Status Former BSA 2.11 m Physical Exam Vitals and nursing note reviewed. Constitutional: Appearance: Normal appearance. Cardiovascular: Rate and Rhythm: Normal rate and regular rhythm. Heart sounds: Normal heart sounds. Comments: 3+ LLE Increased abdominal girth Pulmonary: Effort: Pulmonary effort is normal. Breath sounds: Examination of the right-lower field reveals decreased breath sounds. Examination ofthe left-lower field reveals decreased breath sounds. Decreased breath sounds present. Musculoskeletal: Cervical back: Full passive range of motion without pain. Right lower leg: No edema. Left lower leg: No edema. Skin: General: Skin is cool. Neurological: Mental Status: He is alert and oriented to person, place, and time. Psychiatric: Attention and Perception: Attention normal. Mood and Affect: Mood normal. Behavior: Behavior is cooperative. ALLERGIES: Morphine, Ranolazine, Spironolactone, Cnzuegl-mtc-puk reductase inhibitors, and Fentanyl Current Outpatient Medications Medication Instructions albuterol-budesonide (Airsupra) 90-80 mcg/actuation inhaler 2 puffs, Every 6 hours PRN albuterol 2.5 mg, Every 4 hours PRN aspirin 81 mg EC tablet 1 tablet, Daily atorvastatin (LIPITOR) 40 mg, oral, Nightly bimatoprost (Lumigan) 0.03 % ophthalmic solution 1 drop, Nightly clopidogrel (PLAVIX) 75 mg, oral, Daily isosorbide mononitrate ER (IMDUR) 120 mg, oral, Daily lisinopriL-hydrochlorothiazide 10-12.5 mg tablet 1 tablet, oral, Daily metoprolol succinate XL (TOPROL-XL) 25 mg, oral, Daily nitroglycerin (Nitrostat) 0.[address] under the tongue. omeprazole (PRILOSEC) 20 mg, Daily potassium chloride CR (Klor-Con) 10 mEq ER tablet 10 mEq, oral, Daily, Do not crush, chew, or split. tamsulosin (FLOMAX) 0.4 mg, Daily torsemide (DEMADEX) 20 mg, oral, Daily Assessment: Cardiac and Vasculature August 2024 TTE LVEF 65-70% MR trace Normal RV function RVSP 23 mmHg ASCVD (arteriosclerotic cardiovascular disease) Remote coronary artery bypass grafting October 2019 cardiac cath LLAMAS-LAD patent SVG-diagonal patent Newly occluded SVG-OM 2 Known SOLUTION MIXER SVG-RCA and radial-OM LVEF 65% August 2024 MPI no ischemia, no infarct Current daily activity less than 4 METS with reports of progressive dyspnea on exertion and fatigability. HLD (hyperlipidemia) Moderate intensity statin Essential hypertension Optimal in office BMI 40.0-44.9, adult (Multi) Reviewed the merits of healthy lifestyle choices on overall cardiovascular health. Shortness of breath Continues to report increasing shortness of breath No orthopnea, questionable PND. Edema Left lower extremity edema continues to progress Has right lower extremity edema on some days . No noted benefit with initiation of diuretic. He also has increasing abdominal girth, progressive worsening dyspnea on exertion. Recent echocardiogram with normal LV and RV function. No evidence of pulmonary hypertension. Plan: Through informed decision making process incorporating patients unique circumstances, the followingtreatment plan will be initiated: 1. Prescription drug management of cardiovascular medication for efficacy, adherence to treatment, side effect assessment and polypharmacy. Current treatment clinically warranted and to continue withfollowing modifications: - Stop furosemide - Begin demadex 20mg daily 2. Labs (chem6, bnp) 3. USN left lower extremity r/o DVT (swelling, pain) 4. CT chest with contrast PE protocol (SOB, edema, tachycardia) 5. Return for follow-up; in the interim, contact the office if new symptoms arise. SEATING UPHOLSTERER one week Jairo Ch MSN, CLOTH INSPECTOR-SALES APPLICATIONS ENGINEER, PMHNP-[facility] [place], [place] Please excuse any errors in grammar or translation related to this dictation. Voice recognition software was utilized to prepare this document. [facility] in this [facility] Work Phone: 1([phone]) 522-820404-22-2025 Instructions* Patient Instructions* ESPINOZA Macedo - 08/25/2024 2:00 PM EDT Please bring all medicines, vitamins, and herbal supplements with you when you come to the office. Prescriptions will not be filled unless you are compliant with your follow up appointments or have a follow up appointment scheduled as per instruction of your physician. Refills should be requested at the time of your visit. PLAN: Through informed decision making process incorporating patients unique circumstances, the followingtreatment plan will be initiated: 1. Prescription drug management of cardiovascular medication for efficacy, adherence to treatment, side effect assessment and polypharmacy. Current treatment clinically warranted and to continue withfollowing modifications: - Stop furosemide - Begin demadex 20mg daily 2. Labs (chem6, bnp) 3. USN left lower extremity r/o DVT (swelling, pain) 4. CT chest with contrast PE protocol (SOB, edema, tachycardia) 5. Return for follow-up; in the interim, contact the office if new symptoms arise. SEATING UPHOLSTERER one week documented in this encounterUniversity [facility] Work Phone: [phone] 235-639604-22-2025 Evaluation note* Diagnosis Onset Date Resolution Status Admit Date Elevated PSA acute August 25, 2024 10:28am Family history of colon cancer acute August 25, 2024 10:28am Medicare annual wellness vis it, subsequent acute August 25, 2024 10:28am Edema acute September 07, 2024 10:26am Rectal bleeding acute September 07, 2024 10:26am [facility] Work Phone: [phone] Evaluation note* Diagnosis Onset Date Resolution Status Admit Date Elevated PSA acute August 25, 2024 10:28am Family history of colon cancer acute August 25, 2024 10:28am Medicare annual wellness vis it, subsequent acute August 25, 2024 10:28am Edema acute September 07, 2024 10:26am Rectal bleeding acute September 07, 2024 10:26am Prostate cancer acute October 10:18am Class 3 severe obesity with body mass index (BMI) of 40.0 to 44.9 in adult acute October 22, 2024 10:15am Dermatitis acute October 22 10:15am Morbid (severe) obesity due to excess calories acute October 22, 2024 10:15am Prostate cancer acute October 10:15am [facility] Work Phone: 1([phone] 476-919403-20-2025 Evaluation + Plan note* Assessment & Plan Note - ESPINOZA Macedo - 07/23/2024 12:37 PM EDTAssociated Problem(s): Pre-operative clearance Presents today requesting cardiac risk stratification prior to September 03, 2024 prostate biopsy. [facility] Work Phone: [phone] 150-586003-20-2025 Miscellaneous Notes* Assessment & Plan Note - ESPINOZA Macedo - 07/23/2024 12:37 PM EDTAssociated Problem(s): Pre-operative clearance Presents today requesting cardiac risk stratification prior to September 03, 2024 prostate biopsy. * Assessment & Plan Note - ESPINOZA Macedo - 07/23/2024 12:36 PM EDT Associated Problem(s): Edema Reports progressive increase in bilateral lower extremity edema left greater than right * Assessment & Plan Note - ESPINOZA Macedo - 07/23/2024 12:36 PM EDT Associated Problem(s): BMI 39.0-39.9,adult Reviewed the merits of healthy lifestyle choices on overall cardiovascular health. * Assessment & Plan Note - ESPINOZA Macedo - 07/23/2024 12:36 PM EDT Associated Problem(s): Essential hypertension Optimal in office * Assessment & Plan Note - ESPINOZA Macedo - 07/23/2024 12:35 PM EDT Associated Problem(s): HLD (hyperlipidemia) Moderate intensity statin * Assessment & Plan Note - ESPINOZA Macedo - 07/23/2024 12:35 PM EDT Associated Problem(s): Diastolic dysfunction 2018 TTE LVEF 55 to 60% Left atrium moderately dilated Aortic stenosis trivial * Assessment & Plan Note - ESPINOZA Macedo - 07/23/2024 12:34 PM EDT Associated Problem(s): ASCVD (arteriosclerotic cardiovascular disease) Remote coronary artery bypass grafting October 2019 cardiac cath LLAMAS-LAD patent SVG-diagonal patent Newly occluded SVG-OM 2 Known SOLUTION MIXER SVG-RCA and radial-OM LVEF 65% 2022 MPI no ischemia, no infarct. LVEF 61% Current daily activity less than 4 METS with reports of progressive dyspnea on exertion and fatigability. documented in this [facility] Work Phone: [phone]) [phone] Evaluation + Plan note* Assessment & Plan Note - ESPINOZA Macedo - 07/23/2024 12:36 PM EDTAssociated Problem(s): Edema Reports progressive increase in bilateral lower extremity edema left greater than right [facility] Work Phone: 1([phone]) [phone] Evaluation + Plan note* Assessment & Plan Note - ESPINOZA Macedo - 07/23/2024 12:36 PM EDTAssociated Problem(s): BMI 39.0-39.9,adult Reviewed the merits of healthy lifestyle choices on overall cardiovascular health. [facility] Work Phone: [phone]) [phone] Evaluation + Plan note* Assessment & Plan Note - ESPINOZA Macedo - 07/23/2024 12:36 PM EDTAssociated Problem(s): Essential hypertension Optimal in office [facility] Work Phone: [phone] Evaluation + Plan note* Assessment & Plan Note - ESPINOZA Macedo - 07/23/2024 12:35 PM EDTAssociated Problem(s): HLD (hyperlipidemia) Moderate intensity statin [facility] Work Phone: [phone] 660-577003-20-2025 Evaluation + Plan note* Assessment & Plan Note - ESPINOZA Macedo - 07/23/2024 12:35 PM EDTAssociated Problem(s): Diastolic dysfunction 2018 TTE LVEF 55 to 60% Left atrium moderately dilated Aortic stenosis trivial [facility] Work Phone: [phone] Evaluation + Plan note* Assessment & Plan Note - ESPINOZA Macedo - 07/23/2024 12:34 PM EDTAssociated Problem(s): ASCVD (arteriosclerotic cardiovascular disease) Remote coronary artery bypass grafting October 2019 cardiac cath LLAMAS-LAD patent SVG-diagonal patent Newly occluded SVG-OM 2 Known SOLUTION MIXER SVG-RCA and radial-OM LVEF 65% 2022 MPI no ischemia, no infarct. LVEF 61% Current daily activity less than 4 METS with reports of progressive dyspnea on exertion and fatigability. [facility] Work Phone: [phone] History of Present illness Narrative* ESPINOZA Macedo - 07/22/2024 4:00 PM EDT Chief Complaint My legs are swelling up and I am just getting so winded Reason for Visit Add-on Patient presents to the office today for outpatient follow-up for cardiac risk stratification and symptoms of edema and shortness of breath. Last evaluated in clinic by Dr. Dill April 2024. At that time, was felt not to be a candidatefor knee replacement due to volume overload. He was initiated on Lasix 20 mg and potassium 10 mEq with very minimal benefit. Presents today ambulatory with steady gait. Accompanied by spouse Patient denies any hospitalizations or significant changes to interval medical history since last office follow-up. History of Present Illness Patient is a pleasant 73 gentleman who presents to the office today reports progressive worsening dyspnea on exertion, diaphoresis and fatigability. He reports this has been ongoing for months. He has noted increased lower extremity edema, increased abdominal girth, early satiety and decreased appetite. He sleeps in recliner due to comfort. He reports ambulating in from the parking lot was slow but it was more difficult than when he saw Dr. Dill in April. He reports his anginal symptom was dyspnea on exertion, fatigability and neck pain/arm pain. Today he reports progressive dyspnea on exertion (question if due to volume overload) and fatigability but denies any type of neck/arm pain. No utilization of nitroglycerin. Obstructive sleep apnea but intolerant to CPAP. Patient reports that overall has no complaint(s) of chest pain, chest pressure/discomfort, exertional chest pressure/discomfort, irregular heart beat, and near-syncope Daily activity: < 4 METs Reports decrease in exercise capacity or functional tolerance since last office visit. The importance of secondary prevention reviewed: HTN: Optimal in office HLD: Treated DM: Denies Smoker: Denies BMI: Reviewed the merits of healthy lifestyle choices on overall cardiovascular health. Due to somewhat persistent volume overload, reports no real benefit from Lasix 20 mg daily. I will increase up to 40 mg daily repeat labs in 1 week. Otherwise, fatigability, dyspnea exertion and symptoms reminiscent of prior anginal complaints-will proceed with Lexiscan perfusion study. Will check echocardiogram to verify LVEF, he has a 2 out of 6 systolic ejection murmur with prior aortic stenosis documented is trivial. Discussed with patient and he is in agreement. Will complete cardiac risk stratification once testing reviewed and patient is euvolemic. Office normal sinus rhythm-inferior infarct. Review of Systems Constitutional: Positive for malaise/fatigue. Cardiovascular: Positive for dyspnea on exertion and leg swelling. Negative for chest pain, irregular heartbeat, near-syncope, orthopnea, palpitations, paroxysmal nocturnal dyspnea and syncope. Respiratory: Positive for shortness of breath. Visit Vitals BP 112/50 (BP Location: Left arm, Patient Position: Sitting) Pulse 72 Ht 1.575 m (5' 2 ) Wt 98.4 kg (217 lb) BMI 39.69 kg/m Smoking Status Former BSA 2.07 m Physical Exam Vitals and nursing note reviewed. Constitutional: Appearance: Normal appearance. Cardiovascular: Rate and Rhythm: Normal rate and regular rhythm. Heart sounds: Murmur heard. Systolic murmur is present with a grade of 2/6. Pulmonary: Effort: Pulmonary effort is normal. Breath sounds: Normal breath sounds. Musculoskeletal: Cervical back: Full passive range of motion without pain. Right lower le+ Pitting Edema present. Left lower le+ Pitting Edema present. Skin: General: Skin is cool. Neurological: Mental Status: He is alert and oriented to person, place, and time. Psychiatric: Attention and Perception: Attention normal. Mood and Affect: Mood normal. Behavior: Behavior is cooperative. Allergies Allergen Reactions Morphine Itching Ranolazine Nausea Only Spironolactone GI Upset and Myalgia Esvrsrd-Yiy-Oen Reductase Inhibitors Hives Fentanyl Rash Current Outpatient Medications Medication Instructions albuterol-budesonide (Airsupra) 90-80 mcg/actuation inhaler 2 puffs, Every 6 hours PRN albuterol 2.5 mg, Every 4 hours PRN aspirin 81 mg EC tablet 1 tablet, Daily atorvastatin (LIPITOR) 40 mg, oral, Nightly bimatoprost (Lumigan) 0.03 % ophthalmic solution 1 drop, Nightly clopidogrel (PLAVIX) 75 mg, oral, Daily furosemide (LASIX) 40 mg, oral, Daily isosorbide mononitrate ER (IMDUR) 120 mg, oral, Daily lisinopriL-hydrochlorothiazide 10-12.5 mg tablet 1 tablet, oral, Daily metoprolol succinate XL (TOPROL-XL) 25 mg, oral, Daily nitroglycerin (Nitrostat) 0.[address] under the tongue. omeprazole (PRILOSEC) 20 mg, Daily potassium chloride CR (Klor-Con) 10 mEq ER tablet 10 mEq, oral, Daily, Do not crush, chew, or split. Assessment: ASCVD (arteriosclerotic cardiovascular disease) Remote coronary artery bypass grafting October 2019 cardiac cath LLAMAS-LAD patent SVG-diagonal patent Newly occluded SVG-OM 2 Known SOLUTION MIXER SVG-RCA and radial-OM LVEF 65% 2022 MPI no ischemia, no infarct. LVEF 61% Current daily activity less than 4 METS with reports of progressive dyspnea on exertion and fatigability. Diastolic dysfunction 2017 TTE LVEF 55 to 60% Left atrium moderately dilated Aortic stenosis trivial HLD (hyperlipidemia) Moderate intensity statin Essential hypertension Optimal in office BMI 39.0-39.9,adult Reviewed the merits of healthy lifestyle choices on overall cardiovascular health. Edema Reports progressive increase in bilateral lower extremity edema left greater than right Pre-operative clearance Presents today requesting cardiac risk stratification prior to September 03, 2024 prostate biopsy. Plan: Through informed decision making process incorporating patients unique circumstances, the followingtreatment plan will be initiated: 1. Prescription drug management of cardiovascular medication for efficacy, adherence to treatment, side effect assessment and polypharmacy. Current treatment clinically warranted and to continue withfollowing modifications: - Increase lasix 40mg daily 2. Labs (chem6, BNP) in one week 3. Lexiscan MPI (RUIZ, fatigue) no treadmill due to hip or knee pain 4. Echo (RUIZ, orthopnea) 5. Return for follow-up; in the interim, contact the office if new symptoms arise. SEATING UPHOLSTERER after testing I will call you next week to check on swelling Jairo Ch MSN, CLOTH INSPECTOR-[employer]PLICATIONS ENGINEER, PMHNP-[facility] [place], [place] Please excuse any errors in grammar or translation related to this dictation. Voice recognition software was utilized to prepare this document. documented in this [facility] Work Phone: [phone]) 391-224503-19-2025 Instructions* Patient Instructions* ESPINOZA Macedo - 07/22/2024 4:00 PM EDT Please bring all medicines, vitamins, and herbal supplements with you when you come to the office. Prescriptions will not be filled unless you are compliant with your follow up appointments or have a follow up appointment scheduled as per instruction of your physician. Refills should be requested at the time of your visit. PLAN: Through informed decision making process incorporating patients unique circumstances, the followingtreatment plan will be initiated: 1. Prescription drug management of cardiovascular medication for efficacy, adherence to treatment, side effect assessment and polypharmacy. Current treatment clinically warranted and to continue withfollowing modifications: - Increase lasix 40mg daily 2. Labs (chem6, BNP) in one week 3. Lexiscan MPI (RUIZ, fatigue) no treadmill due to hip or knee pain 4. Echo (RUIZ, orthopnea) 5. Return for follow-up; in the interim, contact the office if new symptoms arise. SEATING UPHOLSTERER after testing I will call you next week to check on swelling Ways to Help Prevent Falls at Home Quick Tips ? Ask for help if you need it. Most people want to help! ? Get up slowly after sitting or laying down ? Wear a medical alert device or keep cell phone in your pocket ? Use night lights, especially areas near a bathroom ? Keep the items you use often within reach on a small stool or end table ? Use an assistive device such as walker or cane, as directed by provider/physical therapy ? Use a non-slip mat and grab bars in your bathroom. Look for home health sections for best options Other Areas to Focus On ? Exercise and nutrition: Regular exercise or taking a falls prevention class are great ways improve strength and balance. Don t forget to stay hydrated and bring a snack! ? Medicine side effects: Some medicines can make you sleepy or dizzy, which could cause a fall. Askyour healthcare provider about the side effects your medicines could cause. Be sure to let them know if you take any vitamins or supplements as well. ? Tripping hazards: Remove items you could trip on, such as loose mats, rugs, cords, and clutter. Wear closed toe shoes with rubber soles. ? Health and wellness: Get regular checkups with your healthcare provider, plus routine vision and hearing screenings. Talk with your healthcare provider about: o Your medicines and the possible side effects - bring them in a bag if that is easier! o Problems with balance or feeling dizzy o Ways to promote bone health, such as Vitamin D and calcium supplements o Questions or concerns about falling *Ask your healthcare team if you have questions [facility], 2021 documented in this [facility] Work Phone: [phone]) 283-571703-13-2025 NotePatient Education Oncology Transrectal Ultrasound-Guided Prostate Biopsy, Care After The following information offers guidance on how to care for yourself after your procedure. Your health care provider may also give you more specific instructions. If you have problems or questions, contact your health care provider. What can I expect after the procedure? After the procedure, it is common to have: ??? Pain and discomfort near your rectum, especially while sitting. ??? [place]-colored urine due to small amounts of blood in your urine. ??? A burning feeling while urinating. ??? Blood in your stool (feces) or bleeding from your rectum. ??? Blood in your semen. Follow these instructions at home: Medicines ??? Take etlx-hux-pnfbbkw and prescription medicines only as told by your health care provider. ??? If you were given a sedative during your procedure, it can affect you for several hours. Do notdrive or operate machinery until your health care provider says that it is safe. ??? If you were prescribed an antibiotic medicine, take it as told by your health care provider. Donot stop using the antibiotic even if you start to feel better. Activity ??? Return to your normal activities as told by your health care provider. Ask your health care provider what activities are safe for you. ??? Ask your health care provider when it is okay for you to resume sexual activity. ??? You may have to avoid lifting. Ask your health care provider how much you can safely lift. General instructions ??? Drink enough fluid to keep your urine pale yellow. ??? Watch your urine, stool, and semen for new or increased bleeding. ??? Keep all follow-up visits. This is important. Contact a health care provider if: ??? You have any of the following: ? Blood clots in your urine or stool. ? Blood in your urine more than 2 weeks after the procedure. ? Blood in your semen more than 2 months after the procedure. ? New or increased bleeding in your urine, stool, or semen. ? Severe pain in your abdomen. ??? Your urine smells bad or unusual. ??? You have trouble urinating. ??? Your lower abdomen feels firm. ??? You have problems getting an erection. ??? You have nausea or you vomit. Get help right away if: ??? You have a fever or chills. This could be a sign of infection. ??? You have bright red urine. ??? You have severe pain that does not get better with medicine. ??? You cannot urinate. Summary ??? After this procedure, it is common to have pain and discomfort around your rectum, especially while sitting. ??? You may have blood in your urine and stool after the procedure. ??? It is common to have blood in your semen after this procedure. ??? Get help right away if you have a fever or chills. This could be a sign of infection. This information is not intended to replace advice given to you by your health care provider. Make sure you discuss any questions you have with your health care provider. Document Revised: 10/16/2021 Document Reviewed: 10/16/2021 Elsevier Patient Education ? 2023 1bib.[facility] 06-09-2024 Evaluation note* Diagnosis Onset Date Resolution Status Admit Date COPD exacerbation acute Februar y 2024 12:08pm Bronchitis acute June 23, 2024 12:55pm Family history of colon cancer acute August 25, 2024 10:28am [facility] Work Phone: [phone]) 576-372102-04-2025 Evaluation note* Diagnosis Onset Date Resolution Status Admit Date COPD exacerbation acute Februar y 2024 12:08pm Bronchitis acute June 23, 2024 12:55pm Elevated PSA acute August 25, 2024 10:28am Family history of colon cancer acute August 25, 2024 10:28am Medicare annual wellness visit, subsequent acute August 25 10:28am [facility] Work Phone: [phone]) 708-545601-14-2025 Hospital Discharge instructions Patient Education 05/19/2024 11:10:52 Prostate Cancer Screening Prostate Cancer Screening Prostate cancer screening is testing that is done to check for the presence of prostate cancer in men. The prostate gland is a walnut-sized gland that is located below the bladder and in front of therectum in males. The function of the prostate is to add fluid to semen during ejaculation. Prostatecancer is one of the most common types of cancer in men. Who should have prostate cancer screening? Screening recommendations vary based on age and other risk factors, as well as between the professional organizations who make the recommendations. In general, screening is recommended if: You are age 50 to 70 and have an average risk for prostate cancer. You should talk with your healthcare provider about your need for screening and how often screening should be done. Because most prostate cancers are slow growing and will not cause , screening in this age group is generally reserved for men who have a 10- to 15-year life expectancy. You are younger than age 50, and you have these risk factors: ?Having a father, brother, or uncle who has been diagnosed with prostate cancer. The risk is higherif your family member's cancer occurred at an early age or if you have multiple family members withprostate cancer at an early age. ?Being a male who is Black or is of [place] or sub-Saharan descent. In general, screening is not recommended if: You are younger than age 40. You are between the ages of 40 and 49 and you have no risk factors. You are 70 years of age or older. At this age, the risks that screening can cause are greater than the benefits that it may provide. If you are at high risk for prostate cancer, your health care provider may recommend that you have screenings more often or that you start screening at a younger age. How is screening for prostate cancer done? The recommended prostate cancer screening test is a blood test called the prostate-specific antigen(PSA) test. PSA is a protein that is made in the prostate. As you age, your prostate naturally produces more PSA. Abnormally high PSA levels may be caused by: Prostate cancer. An enlarged prostate that is not caused by cancer (benign prostatic hyperplasia, or BPH). This condition is very common in older men. A prostate gland infection (prostatitis) or urinary tract infection. Certain medicines such as male hormones (like testosterone) or other medicines that raise testosterone levels. A rectal exam may be done as part of prostate cancer screening to help provide information about the size of your prostate gland. When a rectal exam is performed, it should be done after the PSA level is drawn to avoid any effect on the results. Depending on the PSA results, you may need more tests, such as: A physical exam to check the size of your prostate gland, if not done as part of screening. Blood and imaging tests. A procedure to remove tissue samples from your prostate gland for testing (biopsy). This is the only way to know for certain if you have prostate cancer. What are the benefits of prostate cancer screening? Screening can help to identify cancer at an early stage, before symptoms start and when the cancer can be treated more easily. There is a small chance that screening may lower your risk of dying from prostate cancer. The chance is small because prostate cancer is a slow-growing cancer, and most men with prostate cancer from a different cause. What are the risks of prostate cancer screening? The main risk of prostate cancer screening is diagnosing and treating prostate cancer that would never have caused any symptoms or problems. This is called overdiagnosisand overtreatment. PSA screening cannot tell you if your PSA is high due to cancer or a different cause. A prostate biopsy is the only procedure to diagnose prostate cancer. Even the results of a biopsy may not tell you if your cancer needs to be treated. Slow-growing prostate cancer may not need any treatment other than monitoring, so diagnosing and treating it may cause unnecessary stress or other side effects. Questions to ask your health care provider When should I start prostate cancer screening? What is my risk for prostate cancer? How often do I need screening? What type of screening tests do I need? How do I get my test results? What do my results mean? Do I need treatment? Where to find more information The [place] [employer]: www.cancer.org [place] [employer]: www.auanet.org Contact a health care provider if: You have difficulty urinating. You have pain when you urinate or ejaculate. You have blood in your urine or semen. You have pain in your back or in the area of your prostate. Summary Prostate cancer is a common type of cancer in men. The prostate gland is located below the bladder and in front of the rectum. This gland adds fluid to semen during ejaculation. Prostate cancer screening may identify cancer at an early stage, when the cancer can be treated more easily and is less likely to have spread to other areas of the body. The prostate-specific antigen (PSA) test is the recommended screening test for prostate cancer, butit has associated risks. Discuss the risks and benefits of prostate cancer screening with your health care provider. If you are age 70 or older, the risks that screening can cause are greater than the benefits that it may provide. This information is not intended to replace advice given to you by your health care provider. Make sure you discuss any questions you have with your health care provider. Document Revised: 10/16/2021 Document Reviewed: 10/16/2021 [employer] Patient Education 2023 1bib. Follow Up Care 04/23/2024 12:01:57 With:JUSTINE PIEDRA PA-C, URL Address: [address] [place] [address] Business (1) When: Unknown Comments:pending results of imaging/testing, will call with next steps [facility] 01-14-2025 NoteUrology Office/Clinic Note Chief Complaint Dr. Carrasco referral HPI Staff 73 year old male new patient referred by Dr. Carrasco for elevated PSA. Pt. was not able to give a urine sample today. Random Bladder scan 65mL PSA 08/02/20 - 2.550 12/26/23 - 5.33 04/10/24 - 4.97 Nl GFR 12/26/23 Dysuria: Pt. states once in a while Incomplete bladder emptying: no Hematuria: no Frequency: every couple hours. IPSS 9 QOL 5 but only sx are frequency/nocturia/urgency. No obstructive sx. Pt is on diuretics and knows these sx are from the med. Urgency: yes Nocturia: 1-2x's Stream: good stream Post void dripping: once in a while Wearing pads/ Depends: no Urge incontinence: yes Stress incontinence: no Incontinence without Sensory Awareness: no Abdominal pain: no Flank pain: no BRADLEY 13 but almost always satisfied when attempted intercourse. Review of Systems PHQ Score Initial Depression Screen Score: 0 SCORE no fever, chills, malaise, myalgia. no rash/lesions. no chest pain, palpitations, or SOB. no abdominal pain, nausea, vomiting. Physical Exam Vitals & Measurements HR: 71(Peripheral) RR: 19 BP: 165/83 HT: 65 in HT: 164 cm WT: 102.05 kg WT: 224.981 lb BMI: 37.94 General: nontoxic, NAD Mouth: moist mucosa Lungs: normal respiratory effort Cardio: regular rate, good distal perfusion Abdomen: nondistended, no suprapubic distention or tenderness, no CVA tenderness Neurologic: Grossly normal Skin: No rashes or suspicious lesions KAYLENE: benign. no asymmetry, induration, nodules. Assessment/Plan Does not find sx bothersome enough for tx for urinary freq/urge or ED. 1. Elevated PSA (R97.20: Elevated prostate specific antigen [PSA]) PSA 08/02/20 - 2.550 12/26/23 - 5.33 04/10/24 - 4.97 No family hx prostate ca. KAYLENE benign. I discussed the pros and cons of PSA with the patient today. The various causes of PSA elevation were outlined, including prostate cancer, prostate enlargement, infection of the prostate, inflammation without infection, as well as prostate manipulation. The options regarding this PSA elevation, including prostate biopsy versus close monitoring, versus obtaining an MRI of the prostate were discussed. The patient has decided upon obtaining an MRI of the prostate. Pt is claustrophobic. Will send Valium to pre-medicate. Risks/benefits discussed. Pt amenable to proceed. Return to discuss MRI results and next steps kit FRANCIS. Ordered: E&M of New Patient Moderate 45-59 Min [id number] Orders: [id number] Measure Post Void residual urine and/or bladder capacity by US- non-imaging Follow-up With When Contact Information JUSTINE PIEDRA PA-C, URL [address] [place] [address] [facility] (1) Additional Instructions: pending results of imaging/testing, will call with next steps Patient Education Prostate Cancer Screening Problem List/Past Medical History Ongoing Arteriosclerotic vascular disease Asthma CAD (coronary artery disease) Cardiac enzyme or marker above reference range Carpal tunnel syndrome Chronic obstructive pulmonary disease Elevated PSA Esophageal reflux Essential hypertension Ex-smoker Hyperglycemia due to type 2 diabetes mellitus Hyperlipidemia VASQUEZ (obstructive sleep apnea) Osteoarthritis of left knee joint Paresthesia Subsequent non-ST segment elevation myocardial infarction. Suspected bilateral glaucoma Historical Tic disorder Procedure/Surgical History Discission of secondary membranous cataract (opacified posterior lens capsule and/or anterior hyaloid); laser surgery (eg, YAG laser) (1 or more stages) (10/09/2021), Appendectomy, Arthroscopic procedure of knee joint, Cardiac catheterization, Carpal tunnel release, Coronary artery bypass graft, History of tonsillectomy, Percutaneous transluminal coronary angioplasty, Procedure on neck. Medications Albuterol (Eqv-Ventolin HFA) 90 mcg/inh inhalation aerosol, 2 inh aspirin 81 mg oral capsule, 81 mg= 1 cap(s), Oral atorvastatin 40 mg Tab, 40 mg= 1 tab(s) clopidogrel 75 mg Tab, 75 mg= 1 tab(s) docusate sodium 100 mg Cap, 100 mg= 1 cap(s), Oral, Daily, PRN furosemide 20 mg Tab, 20 mg= 1 tab(s) hydrochlorothiazide-lisinopril 12.5 mg-10 mg Tab, 1 tab(s) isosorbide mononitrate 120 mg ER Tab, 120 mg= 1 tab(s) latanoprost Opth 0.005% Ritu, 1 drop(s) metoprolol succinate 25 mg ER Tab, 25 mg= 1 tab(s), Oral, Daily nitroglycerin, 0.4 mg omeprazole 20 mg Cap-DR, 20 mg= 1 cap(s) Potassium Chloride (Zjp-Qhwx-Pvi 10) 10 mEq oral tablet, extended release, 10 mEq= 1 tab(s) Allergies atorvastatin (Hives, Unknown) fentanyl topical (Itching, Unknown, Eruption, Rash) morphine (Unknown, Itching, Itching) ranolazine (Unknown, Hives) venlafaxine (Unknown, Comment:tired, no appetite) vilanterol (Dizziness) Social History Alcohol Never., 05/19/2024 Substance Abuse Never., 05/19/2024 Tobacco quit 2008 Tobacco Use:., 05/19/2024 Family History COPD: Mo (more content not included)...[facility]Result Comment: Electronically Signed By: JUSTINE PIEDRA PA-C\Date and Time Signed: 05/19/2510:13 [id number] NotePatient Education Oncology Prostate Cancer Screening Prostate cancer screening is testing that is done to check for the presence of prostate cancer in men. The prostate gland is a walnut-sized gland that is located below the bladder and in front of therectum in males. The function of the prostate is to add fluid to semen during ejaculation. Prostatecancer is one of the most common types of cancer in men. Who should have prostate cancer screening? Screening recommendations vary based on age and other risk factors, as well as between the professional organizations who make the recommendations. In general, screening is recommended if: ??? You are age 50 to 70 and have an average risk for prostate cancer. You should talk with your health care provider about your need for screening and how often screening should be done. Because most prostate cancers are slow growing and will not cause , screening in this age group is generally reserved for men who have a 10- to 15-year life expectancy. ??? You are younger than age 50, and you have these risk factors: ? Having a father, brother, or uncle who has been diagnosed with prostate cancer. The risk is higher if your family member's cancer occurred at an early age or if you have multiple family members with prostate cancer at an early age. ? Being a male who is Black or is of [place] or sub-Saharan descent. In general, screening is not recommended if: ??? You are younger than age 40. ??? You are between the ages of 40 and 49 and you have no risk factors. ??? You are 70 years of age or older. At this age, the risks that screening can cause are greater than the benefits that it may provide. If you are at high risk for prostate cancer, your health care provider may recommend that you have screenings more often or that you start screening at a younger age. How is screening for prostate cancer done? The recommended prostate cancer screening test is a blood test called the prostate-specific antigen(PSA) test. PSA is a protein that is made in the prostate. As you age, your prostate naturally produces more PSA. Abnormally high PSA levels may be caused by: ??? Prostate cancer. ??? An enlarged prostate that is not caused by cancer (benign prostatic hyperplasia, or BPH). This condition is very common in older men. ??? A prostate gland infection (prostatitis) or urinary tract infection. ??? Certain medicines such as male hormones (like testosterone) or other medicines that raise testosterone levels. A rectal exam may be done as part of prostate cancer screening to help provide information about the size of your prostate gland. When a rectal exam is performed, it should be done after the PSA level is drawn to avoid any effect on the results. Depending on the PSA results, you may need more tests, such as: ??? A physical exam to check the size of your prostate gland, if not done as part of screening. ??? Blood and imaging tests. ??? A procedure to remove tissue samples from your prostate gland for testing (biopsy). This is theonly way to know for certain if you have prostate cancer. What are the benefits of prostate cancer screening? Screening can help to identify cancer at an early stage, before symptoms start and when the cancer can be treated more easily. ??? There is a small chance that screening may lower your risk of dying from prostate cancer. The chance is small because prostate cancer is a slow-growing cancer, and most men with prostate cancer from a different cause. What are the risks of prostate cancer screening? The main risk of prostate cancer screening is diagnosing and treating prostate cancer that would never have caused any symptoms or problems. This is called overdiagnosisand overtreatment. PSA screening cannot tell you if your PSA is high due to cancer or a different cause. A prostate biopsy is the only procedure to diagnose prostate cancer. Even the results of a biopsy may not tell you if your cancer needs to be treated. Slow-growing prostate cancer may not need any treatment other than monitoring, so diagnosing and treating it may cause unnecessary stress or other side effects. Questions to ask your health care provider ??? When should I start prostate cancer screening? What is my risk for prostate cancer? How often do I need screening? What type of screening tests do I need? How do I get my test results? What do my results mean? Do I need treatment? Where to find more information ??? The [place] [employer]: www.cancer.org ??? [place] [employer]: www.auanet.org Contact a health care provider if: ??? You have difficulty urinating. ??? You have pain when you urinate or ejaculate. ??? You have blood in your urine or semen. ??? You have pain in your back or in the area of your prostate. Summary ??? Prostate cancer is a common type of cancer in men. The prostate gland (more content not included)...[facility]01-09-2025 Telephone encounter Note* Telephone Encounter - MEKA Gregorio - 05/14/2024 10:45 AM EST Spoke to pt and he would like to hold off at this time scheduling surgery. He has an upcoming appt with [employer] and would like to discuss surgery again with him before proceeding. He will call back when ready to schedule. [facility] [id number] Miscellaneous Notes* Telephone Encounter - MEKA Gregorio - 05/14/2024 10:45 AM EST Spoke to pt and he would like to hold off at this time scheduling surgery. He has an upcoming appt with [employer] and would like to discuss surgery again with him before proceeding. He will call back when ready to schedule. * Telephone Encounter - Macey Durant - 05/12/2024 1:22 PM EST Patient called stating his heart doctor, is having him put sx off until september. Any questions please call . documented in this encounterSaint [facility] [id number] Telephone encounter Note* Telephone Encounter - Macey Durant - 05/12/2024 1:22 PM EST Patient called stating his heart doctor, is having him put sx off until september. Any questions please call . [facility] [id number] History of Present illness Narrative* Joshua Dill DO - 05/05/2024 1:40 PM EST Subjective Víctor Nichols . is a 73 y.o. male Chief Complaint Follow-up 73-year-old gentleman here for routine follow-up with symptoms of shortness of breath and edema that has been going on for the past 1 year. He finally called and and scheduled the appointment for follow-up. He is a former patient of Dr. Clark's whom I am now assuming cardiovascular management following his alf Patient has a history of remote CABG, heart catheterization performed electively by myself in 2019 revealed patent LLAMAS-LAD and SVG-diagonal, patent emmonak ramus branch (occluded graft to the ramus and (an occluded second OM branch that fills via left to left collaterals (occluded vein graft to theOM 2) and chronic subtotal occlusion of the [...] knee replacement which will have to be placedon hold until we diurese some for his newly diagnosed HFpEF Current NYHA class III stage C HFpEF Recommendations, initiate furosemide 20 mg daily potassium 10 mill equivalents daily, obtain Chem-6and 2 weeks follow-up with nurse practitioner in [...] Judgment: Judgment normal. Allergies Morphine, Ranolazine, Spironolactone, Emybdov-owi-smr reductase inhibitors, and Fentanyl Current Medications Current [...] Administer 1 drop into affected eye(s) once dailyat bedtime., Disp: , Rfl: clopidogrel (Plavix) 75 mg tablet, Take 1 tablet (75 mg) by mouth once daily., Disp: 90 tablet, Rfl: 3 diazePAM (Valium) 2 mg tablet, Take 1 tablet (2 mg) by mouth 2 times a day as needed., Disp: , Rfl: isosorbide mononitrate ER (Imdur) 120 mg 24 hr tablet, Take 1 tablet (120 mg) by mouth once daily.,Disp: 90 tablet, Rfl: 3 lisinopriL-hydrochlorothiazide 10-12.5 mg tablet, Take 1 tablet by mouth once daily., Disp: 90 tablet, Rfl: 3 metoprolol succinate XL (Toprol-XL) 25 mg 24 hr tablet, Take 1 tablet (25 mg) by mouth once daily.,Disp: 90 tablet, Rfl: 3 nitroglycerin (Nitrostat) 0.4 [...] the direction and in the presence of Mekhi Dill DO. Provider Attestation - Scribe documentation All medical record entries made by the Scribe were at my direction and personally dictated by me. Ihave reviewed the chart and agree that the record accurately reflects my personal performance of the history, physical exam, discussion and plan. documented in this [facility] Work Phone: 1(799) 476-415212-31-2024 Instructions* Patient Instructions* Mavis Henry RN - 05/05/2024 1:40 PM [...] Provided instructions on exercise. documented in this [facility] Work Phone: 1(234) 312-804612-06-2024 Evaluation note* Diagnosis Onset Date Resolution Status Admit Date Elevated PSA acute April 11:19am Rosacea acute April 10, 2024 11:19am COPD exacerbation acute uar y 2024 12:08pm Bronchitis acute June 23, 2024 12:55pm [facility] Work Phone: 1(987) 972-800911-25-2024 Evaluation note* Diagnosis Onset Date Resolution Status Admit Date Asthma acute March 30, 2024 9:37am Elevated PSA acute April 11:19am Rosacea acute April 10, 2024 11:19am [facility] Work Phone: 1(427) 697-869111-25-2024 Evaluation note* Diagnosis Onset Date Resolution Status Admit Date Asthma acute March 30, 2024 9:37am Elevated PSA acute April 11:19am Rosacea acute April 10, 2024 11:19am COPD exacerbation acute 2024 12:08pm [facility] Work Phone: 1(861) 606-603909-11-2024 History of Present illness Narrative* Jr. Simone Santoyo, DO - 01/15/2024 1:00 PM EDT Images from the original note were not [...] HAVE CONSTANT DISCOMFORT - MEDIAL ASPECT ; WORSEWITH AMBULATION. NOTES LIMITED ROM ; SOME WEAKNESS [...] Daily lisinopril-hydroCHLOROthiazide 10-12.5 MG tablet lisinopril 10 mg- hydrochlorothiazide 12.5 mg tablet metoprolol succinate XL (TOPROL-XL) [...] left knee showed severe varus deformity with pmwi-ji-rgke articulation to the medial joint line, flattening [...] after February secondary to a vacation to [place] planned in February. He is understanding we [...] including the patient's age and longevity of pr osthesis, usual postop course and possible need for [...] failure, liver failure, diabetes, cardiac event in thelast year, sleep apnea, bleeding disorder, excessive tobacco use, or if at the time of surgery the patient is greater than 80 years old, or requires discharged to a [facility] facility, the patient may require to have additional inpatient hospital stay following the surgery. Physical therapy is contraindicated in this patient's case because of tdsl-oi-axfg articulation of the patient's knee. Simone Santoyo D.O. documented in this encounterSaint [facility] [id number] History of Present illness Narrative* Joshua Clark MD - 09/24/2023 10:50 AM EDT Subjective patient returns follow-up. Víctor Nichols Sr. [...] normal. Judgment: Judgment normal. Allergies Morphine, Ranolazine, Dnenmvg-vuj-uqg reductase inhibitors, and Fentanyl Current Medications Current Outpatient Medications: albuterol 2.5 mg /3 mL (0.083 %) nebulizer solution, Take 3 mL (2.5 mg) by nebulization every 4 hours if needed., Disp: , Rfl: aspirin 81 mg EC tablet, Take 1 tablet (81 mg) by mouth once daily., Disp: , Rfl: bimatoprost (Lumigan) 0.03 % ophthalmic solution, Administer 1 drop into affected eye(s) once dailyat bedtime., Disp: , Rfl: diazePAM (Valium) 2 [...] 1 tablet (120 mg) by mouth once daily.,Disp: 90 tablet, Rfl: 3 lisinopriL-hydrochlorothiazide 10-12.5 mg tablet, Take 1 tablet by mouth once daily., Disp: 90 tablet, Rfl: 3 metoprolol succinate XL (Toprol-XL) 25 mg 24 hr tablet, Take 1 tablet (25 mg) by mouth once daily.,Disp: 90 tablet, Rfl: 3 spironolactone (Aldactone) 25 mg tablet, Take 1 tablet (25 mg) by mouth once daily., Disp: 90 tablet, Rfl: 3 1. ASCVD (arteriosclerotic cardiovascular disease) Patient remembers symptoms that preceded diagnosis and he denies any such symptoms. Because of thiswe believe he is stable. - Follow Up [...] 1 tablet by mouth once daily. Dispense: 90tablet; Refill: 3 2. History of PTCA A [...] 1 tablet by mouth once daily. Dispense: 90tablet; Refill: 3 - metoprolol succinate XL (Toprol-XL) [...] By signing my name below, I, Bree CHILD , Scribe attest that this documentation has been prepared under the direction and in the presence of Libra Clark MD. Provider Attestation - Scribe documentation All medical record entries made by the Scribe were at my direction and personally dictated by me. Ihave reviewed the chart and agree that the record accurately reflects my personal performance of the history, physical exam, discussion and plan. documented in this [facility] Work Phone: 1(658) 955-758205-21-2024 Instructions* Patient Instructions* Keshia Mckeon LPN - 09/24/2023 10:50 AM [...] Fall Prevention Education Given [facility] Work Phone: 1(596) 170-922002-06-2024 Telephone encounter Note* Telephone Encounter - Marybeth Mason NP - 06/11/2023 8:47 AM EST Post op pain rx. PDMP reviewed. [facility] [id number] Miscellaneous Notes* Telephone Encounter - Marybeth Mason NP - 06/11/2023 8:47 AM EST Post op pain rx. PDMP reviewed. documented in this encounterSaint [facility] [id number] Evaluation note* Encounter Date Diagnosis Assessment Notes Treatment Notes Treatment Clinical Notes May, Acute non-recurrent maxillary sinusitis (ICD-10 - J01.00) Reviewed allergies and medications. ER if dyspnea worsens. Ask pharmacist which OTC would be best, jose armando w his cardiac meds. Víctor expresses understanding. [employer] Other 10-17-2023 Evaluation note* Encounter Date Diagnosis Assessment Notes Treatment Notes Treatment Clinical Notes Feb, Asthma, mild intermittent (ICD-10 - J45.20) [facility] Other 06-02-2023 Evaluation note* Encounter Date Diagnosis Assessment Notes Treatment Notes Treatment Clinical Notes Oct, Acute pain of left knee (ICD-10 - M25.562) Pt states he has not had an xray. Suspect this is why he is waiting on the MRI. Will check MRI at [facility] outpt imaging in [place]. Oct, Leg edema, left (ICD-10 - R60.0) Will recheck DVT US for reassurance as it has been more than a week and pt states edema and pain have increased. Pt will call [facility] Out[facility] imaging in [place] for appt - JOSE RAUL Oct, Right ear impacted cerumen (ICD-10 - H61.21) [employer] Other 04-19-2023 Evaluation note* Encounter Date Diagnosis Assessment Notes Treatment Notes Treatment Clinical Notes Aug, Bronchitis (ICD-10 - J40) Discussed diagnosis with patient. Patient to start Zithromax. Patient to take Zithromax daily with food as prescribed. Finish entire course of antibiotic. Has proair inhaler. Ldra-sxk-bwsozaf antipyretics as needed. Warning signs and symptoms reviewed with patient today. Patient to go immediately to the ER should she experience any of these. Patient to notify office should her symptoms persist and not improve. Patient verbalizes understanding and agrees to treatment plan. [employer] Other 03-06-2023 Evaluation note* Encounter Date Diagnosis Assessment Notes Treatment Notes Treatment Clinical Notes Jul, Dyspnea on exertion (ICD-10 - R06.09) [facility] Other 08-24-2022 History of Present illness Narrative* Kristin Giraldo [...] by others. I have seen and examined Víctro Nichols Sr.. I have discussed the case and the management of this patient's care with the Resident/Fellow, if applicable. I also have reviewed and agree with the assessment and plan as stated above and agree withall of its relevant components. Kristin Giraldo MD December 27, 2021 [facility] History of Present illness Narrative* Kristin [...] November 13, 2021 [facility] History of Present illness Narrative* Kristin [...] eyes today Follow up 3-4 weeks VATA/HVF I, Kristin Giraldo MD, have confirmed and [...] October 09, 2021 documented in [facility]St[facility]03-30-2022 Miscellaneous Notes* Telephone Encounter - Shaq Apodaca Patient [employer] - 08/02/2021 3:12 PM EDT Patient has been scheduled * Telephone Encounter - Adiel Lu - 08/02/2021 2:[address] Reese's is referring patient to Dr. Eldridge for a Yag and SLT Laser. Spoke to patient, he needs to speak with his daughter for his transportation and he will call back. Informed him days Dr. Lopez in [place]. documented in this [facility]St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 [...] as documented in the electronic medical record. [employer] Other 09-17-2021 NotePROCEDURE: XR HIP LT 2 [...] authenticated by: CHILO ROBLES Date: 2021-01-20 16:20[facility] No data available for this section [facility] evaluation + Plan note Future Appointments Appointment Date:09/02/2024 10:00:00 AM Scheduled Provider: Location:[facility] Appointment Type:Surgery CALL PAT FT Appointment Date:09/03/2024 08:30:00 AM Scheduled Provider: Location:[facility] Appointment Type:Surgery FT [facility] Evaluation noteNo assessment information available [facility] Work Phone: Evaluation note* Diagnosis Glaucoma suspect of both eyes- Primary Preglaucoma, unspecified PCO (posterior capsular opacification), bilateral After-cataract, unspecified PCO (posterior capsular opacification), bilateral- Primary After-cataract, unspecified Glaucoma suspect of both eyes Preglaucoma, unspecified documented in this [facility] [employer]No[facility] Other Evaluation note* Diagnosis Glaucoma suspect of both eyes- Primary Preglaucoma, unspecified documented in this encounter [facility] noteNo InformationNoR[employer] Other Evaluation note* Diagnosis Post-op pain- Primary Other acute postoperative pain documented in this encounter [facility]* Diagnosis Onset Date Resolution Status BPV (benign positional vertigo) acute Hypertension acute Left wrist pain acute Type 2 diabetes mellitus with hyperglycemia acute [facility] Work Phone: Evaluation note* Diagnosis ASCVD (arteriosclerotic cardiovascular disease)- Primary Unspecified cardiovascular disease History of PTCA Postsurgical percutaneous transluminal coronary angioplasty status Mixed hyperlipidemia Essential hypertension Unspecified essential hypertension S/P CABG (coronary artery bypass graft) Postsurgical aortocoronary bypass status BMI 39.0-39.9,adult Former smoker Personal history of tobacco use, presenting hazards to health documented in this encounter [facility] Work Phone: Evaluation note* Diagnosis Onset Date Resolution Status BPV (benign positional vertigo) acute Hypertension acute Left wrist pain acute Type 2 diabetes mellitus with hyperglycemia acute Asthma acute [facility] Work Phone: Evaluation note* Diagnosis Onset Date Resolution Status Asthma acute Hyperlipidemia acute Hypertension acute Type 2 diabetes mellitus with hyperglycemia acute [facility] Work Phone: Evaluation note* Diagnosis Onset Date Resolution Status Hyperlipidemia acute Hypertension acute Medicare annual wellness visit, subsequent acute Type 2 diabetes mellitus with hyperglycemia acute Pharyngitis acute [facility] Work Phone: Evaluation note* Diagnosis Primary osteoarthritis of left knee- Primary Acute pain of left knee documented in this encounter [facility] Healthcare[facility]* Diagnosis ASCVD (arteriosclerotic cardiovascular disease) [...] health BMI 39.0-39.9,adult documented in this encounter [facility] Work Phone: Evaluation note* Diagnosis ASCVD (arteriosclerotic cardiovascular disease)- Primary Unspecified cardiovascular disease Edema, unspecified type Diastolic dysfunction Unspecified heart disease Hyperlipidemia, unspecified hyperlipidemia type Essential hypertension Unspecified essential hypertension BMI 39.0-39.9,adult Orthopnea Pre-operative clearance Unspecified pre-operative examination documented in this encounter [facility] Work Phone: Evaluation note* Diagnosis ASCVD (arteriosclerotic cardiovascular disease)- Primary Unspecified cardiovascular disease Edema, unspecified type Diastolic dysfunction Unspecified heart disease Hyperlipidemia, unspecified hyperlipidemia type Essential hypertension Unspecified essential hypertension BMI 39.0-39.9,adult Orthopnea Pre-operative clearance Unspecified pre-operative examination ASCVD (arteriosclerotic cardiovascular disease) Unspecified cardiovascular disease Essential hypertension Unspecified essential hypertension documented in this encounter [facility] Work Phone: Evaluation note* Diagnosis ASCVD (arteriosclerotic cardiovascular disease)- Primary Unspecified cardiovascular disease Edema, unspecified type Diastolic dysfunction Unspecified heart disease Hyperlipidemia, unspecified hyperlipidemia type Essential hypertension Unspecified essential hypertension BMI 39.0-39.9,adult Orthopnea Pre-operative clearance Unspecified pre-operative examination ASCVD (arteriosclerotic cardiovascular disease) Unspecified cardiovascular disease Edema, unspecified type Diastolic dysfunction Unspecified heart disease Essential hypertension Unspecified essential hypertension Localized edema Edema documented in this encounter [facility] Work Phone: Evaluation note* Diagnosis ASCVD (arteriosclerotic cardiovascular disease)- Primary Unspecified cardiovascular disease Edema, unspecified type Diastolic dysfunction Unspecified heart disease Hyperlipidemia, unspecified hyperlipidemia type Essential hypertension Unspecified essential hypertension BMI 39.0-39.9,adult Orthopnea Pre-operative clearance Unspecified pre-operative examination Shortness of breath- Primary ASCVD (arteriosclerotic cardiovascular disease) Unspecified cardiovascular disease Edema, unspecified type Hyperlipidemia, unspecified hyperlipidemia type Essential hypertension Unspecified essential hypertension BMI 40.0-44.9, adult (Multi) Localized edema Edema documented in this encounter [facility] Work Phone: Evaluation note* Diagnosis ASCVD (arteriosclerotic cardiovascular disease)- Primary Unspecified cardiovascular disease Edema, unspecified type Diastolic dysfunction Unspecified heart disease Hyperlipidemia, unspecified hyperlipidemia type Essential hypertension Unspecified essential hypertension BMI 39.0-39.9,adult Orthopnea Pre-operative clearance Unspecified pre-operative examination Shortness of breath- Primary ASCVD (arteriosclerotic cardiovascular disease) Unspecified cardiovascular disease Edema, unspecified type Hyperlipidemia, unspecified hyperlipidemia type Essential hypertension Unspecified essential hypertension BMI 40.0-44.9, adult (Multi) Localized edema Edema Type 2 diabetes mellitus with hyperglycemia, without long-term current use of insulin- Primary Edema, unspecified type ASCVD (arteriosclerotic cardiovascular disease) Unspecified cardiovascular disease BMI 40.0-44.9, adult (Multi) Hyperlipidemia, unspecified hyperlipidemia type Essential hypertension Unspecified essential hypertension documented in this encounter [facility] Work Phone: Evaluation note* Diagnosis Prostate cancer (HCC)- Primary Malignant neoplasm of prostate [facility]* Diagnosis ASCVD (arteriosclerotic cardiovascular disease)- Primary Unspecified cardiovascular disease Edema, unspecified type Diastolic dysfunction Unspecified heart disease Hyperlipidemia, unspecified hyperlipidemia type Essential hypertension Unspecified essential hypertension BMI 39.0-39.9,adult Orthopnea Pre-operative clearance Unspecified pre-operative examination Shortness of breath- Primary ASCVD (arteriosclerotic cardiovascular disease) Unspecified cardiovascular disease Edema, unspecified type Hyperlipidemia, unspecified hyperlipidemia type Essential hypertension Unspecified essential hypertension BMI 40.0-44.9, adult (Multi) Localized edema Edema Type 2 diabetes mellitus with hyperglycemia, without long-term current use of insulin- Primary Edema, unspecified type ASCVD (arteriosclerotic cardiovascular disease) Unspecified cardiovascular disease BMI 40.0-44.9, adult (Multi) Hyperlipidemia, unspecified hyperlipidemia type Essential hypertension Unspecified essential hypertension ASCVD (arteriosclerotic cardiovascular disease) Unspecified cardiovascular disease Diastolic dysfunction Unspecified heart disease Hyperlipidemia, unspecified hyperlipidemia type Essential hypertension Unspecified essential hypertension Prostate cancer (Multi) Malignant neoplasm of prostate S/P CABG (coronary artery bypass graft) Postsurgical aortocoronary bypass status BMI 37.0-37.9, adult Former smoker Personal history of tobacco use, presenting hazards to health documented in this encounter [facility] Work Phone: History and physical note Author Jaime Sharif [facility] Note Date/Time October 02, 2024 8:42a m [facility] [address] [place] [address] Gastroenterology H&P Signed Patient: Víctor Nichols MR#: [id number] : 1950 Acct:[id number] Age/Sex: 73 / M Adm Date: 5 Loc: Room: Type: [facility] Attending Dr: Jaime Sharif MD Copies to: MD Luis Alberto Ortiz MD~ Date of Service: 10/02/2024 HISTORY & PHYSICAL: Patient's history with special attention to the cardiovascular, pulmonary systems and the current problem was reviewed with the patient immediately prior to the procedure. Present medications and doses reviewed in the EMR. Allergies and pertinent laboratory tests were also reviewedat this time in the EMR. The physical examination, as below, was then performed. Indication, assessment and HPI: 73-year-old male presents for screening colonoscopy Family history of GI malignancy? Yes, multiple first and second-degree relatives with colorectal cancer. Patient reports that his nephew has 100s of polyps . PHYSICAL EXAMINATION Mouth and Pharynx : moist mucus membranes, normal dentition Eyes: EOM intact b/l, normal sclera Pulmonary: normal respiratory effort, able to speak in complete sentences Neurological: alert and oriented x3, moves all extremities Skin: non-jaundiced, warm and dry Abdomen: non-distended, normal to inspection Psych: Mental status and mood grossly normal REVIEW OF SYSTEMS Constitutional: Denies malaise, fevers Cardiovascular: Denies chest pain, palpitations Respiratory: Denies shortness of breath, wheezing Gastrointestinal: Per HPI Genitourinary: Denies dysuria, polyuria Musculoskeletal: Denies joint swelling, joint stiffness Neurological: Denies numbness, tingling Integumentary: Denies rashes, skin lesions Endocrine: Denies fatigue, weight loss Written informed consent obtained from the patient. Risks (including but not limited to perforation, infection, bloating, bleeding, need for emergent surgeryand loss of life), benefits and alternatives explained and questions answered. The patient verbalized understanding. Based on history patient is an appropriate candidate for the procedure. Jaime Sharif MD Documented By: Jaime Sharif MD 10/02/24 0841 Signed By: <Electronically signed by Jaime Sharif MD> 10/02/24 0842 [facility] Work Phone: History general Narrative - Reported* Type Description Date Medical History CAD Medical History VASQUEZ Medical History Hypertension Medical History Esophageal reflux Surgical History CABG 2005 Surgical History Neck Surgery 2002 Surgical History carpal tunnel release 2002 Surgical History pilonidal cyst 1979 Surgical History tonsillectomy 1968 Surgical History appendectomy 1972 Surgical History tear duct surgery 1975 Surgical History heart stents [employer] Other [facility] Other History general Narrative - Reported* Type Description Date Medical History CAD Medical History VASQUEZ Medical History Hypertension Medical History Esophageal reflux Surgical History CABG 2005 Surgical History Neck Surgery 2002 Surgical History carpal tunnel release 2003 Surgical History pilonidal cyst 1979 Surgical History tonsillectomy 1968 Surgical History appendectomy 1972 Surgical History tear duct surgery 1975 Surgical History heart stents Hospitalization History SEE SURGICAL HX [facility] Other History general Narrative - Reported* Type Description Date Medical History CAD Medical History VASQUEZ Medical History Hypertension Medical History Esophageal reflux Surgical History CABG 2005 Surgical History Neck Surgery 2002 Surgical History carpal tunnel release 2003 Surgical History pilonidal cyst 1979 Surgical History tonsillectomy 1968 Surgical History appendectomy 1972 Surgical History tear duct surgery 1975 Surgical History heart stents Surgical History lt. knee arthroscopy 01/2023 ? Hospitalization History SEE SURGICAL HX [employer] Other History of Present illness NarrativePatient returns [...] restricted diet with exercise and weight loss.[facility] 250 DO Work Phone: Hospital Discharge instructions No data available for this section [facility] Discharge instructionsAmbulatory Orders* Referral to Gastroenterology Location: [facility] Work Phone: Progress note No data available for this section [facility] [place] reason for referral (narrative)* Reason refer patient to [facility] neurology for further evaluation of potential neurological disorder. Hx of tics, peripheral peristhesia upper and lower extremities, hyporeflexia, spasticity. Please eval jose raul Diagnosis 1 Simple tics (F95.9) Referral Organization [facility] Referring Provider First Name Lam Referring Provider Last Name Latanya Referring Provider Specialty Orthopedic Surgery Referred Organization [facility] Referred Address [address] [place], [place],[address] Referred Provider Specialty Neurology Referral Priority Routine [facility] Other Reason for referral (narrative)* Consultation (Routine) - Authorized Specialty Diagnoses / Procedures Referred By Lizy barakat Referred To Contact Cardiology Diagnoses ASCVD (arteriosclerotic cardiovascular disease) Procedures Follow Up In Cardiology Joshua Clark MD [address] [facility] [address], [address] [address] Joshua Dill DO [address] [facility] [address], [address] [address] Referral ID Status Reason Start Date Expiration Date V isits Requested Visits Authorized [id number] Authorized 09/24/2023 09/23/2024 1 1 [facility] Work Phone: Reason for referral (narrative)No reason for referral [facility] Work Phone: Reason for visit Narrative* Cardiac Stress Testing (Routine) - Authorized Specialty Diagnoses / Procedures Referred By Contac t Referred To Contact Radiology Diagnoses ASCVD (arteriosclerotic cardiovascular disease) Essential hypertension Procedures Nuclear Stress Test CHG MYOCARDIAL SPECT MULTIPLE STUDIES Jairo Ch CLOTH INSPECTOR-SALES APPLICATIONS ENGINEER [address] [facility] [address] [place] [address] Phone: tel: fax: Referral ID Status Reason Start Date Expiration Date V isits Requested Visits Authorized [id number] Authorized 07/22/2024 07/22/2025 3 3 [facility] Work Phone: reason for visit Narrative* Cardiac Stress Testing (Routine) - Authorized Specialty Diagnoses / Procedures Referred By Contac t Referred To Contact Radiology Diagnoses ASCVD (arteriosclerotic cardiovascular disease) Essential hypertension Procedures Nuclear Stress Test CHG MYOCARDIAL SPECT MULTIPLE STUDIES Jairo Ch CLOTH INSPECTOR-SALES APPLICATIONS ENGINEER [address] [facility] [address] [place] [address] Phone: tel: fax: Referral ID Status Reason Start Date Expiration Date V isits Requested Visits Authorized [id number] Authorized 07/22/2024 07/22/2025 3 3 [facility] Work Phone: reason for visit Narrative* CV Imaging (Routine) - Authorized Specialty Diagnoses / Procedures Referred By Contac t Referred To Contact Cardiology Diagnoses ASCVD (arteriosclerotic cardiovascular disease) Edema, unspecified type Diastolic dysfunction Essential hypertension Procedures Transthoracic Echo Complete CT ECHO TTHRC R-T 2D W/WOM-MODE COMPL SPEC&COLR D Jairo Ch, CLOTH INSPECTOR-SALES APPLICATIONS ENGINEER [address] [facility] [address], [address] [place] [address] Phone: tel: fax: Referral ID Status Reason Start Date Expiration Date Visits Requested Visits Authorized [id number] Authorized Perform Procedure 07/22/2024 07/22/2025 1 1 [facility] Work Phone: Summary Purpose Family History No Family History Records FoundUnknown Family Member Name Dates Details Family history [...] Unk nown Unknown father Heart disease Unknown Relationship Condition Age at Onset Recorded Date/T narinder mother Unknown Chronic obstructive pulmonary disease Unk nown father Heart disease Unknown Unknown Malignant neoplasm Unknown Myocardial infarction Unknown History of heart surgery Unknown Type 2 diabetes mellitus Unknown brother Malignant neoplasm Unknown Advance Directives No Advanced Directives Records Found Advance Directive Response Recorded Date/ Time Advance Directives No July 09 11:20am Advance Directive Response Recorded Date/ Time Advance Directives No July 09 10:20am Chief Complaint VÍCTOR NICHOLS is being seen [...] Type 2 diabetes mellitus with hyperglycemia Pharyngitis Chief Complaint Admit Date H mo f/u Asthma March 30, 2024 9:37am Face breaking out April 10, 2024 1 1:19am Amb Documentation May 20, 2024 9 :00am Virtural: URI June 09, 2024 1 2:08pm Reason for Visit Admit Date Asthma March 30, 2024 9:37am Elevated PSA April 10, 2024 1 1:19am Rosacea April 10, 2024 1 1:19am Chief Complaint Admit Date H mo f/u Asthma March 30, 2024 9:37am Face breaking out April 10, 2024 1 1:19am Amb Documentation May 20, 2024 9 :00am Virtural: URI June 09, 2024 1 2:08pm cough, congestion June 23, 2024 12:55pm Reason for Visit Admit Date Asthma March 30, 2024 9:37am Elevated PSA April 10, 2024 1 1:19am Rosacea April 10, 2024 1 1:19am COPD exacerbation June 09, 2024 1 2:08pm Chief Complaint Admit Date Face breaking out April 10, 2024 1 1:19am Amb Documentation May 20, 2024 9 :00am Virtural: URI June 09, 2024 1 2:08pm cough, congestion June 23, 2024 12:55pm [email or web address] July 01, 2024 9:05am Reason for Visit Admit Date Elevated PSA April 10, 2024 1 1:19am Rosacea April 10, 2024 1 1:19am COPD exacerbation June 09, 2024 1 2:08pm Bronchitis June 23, 2024 12:55pm Chief Complaint Admit Date Virtural: URI June 09, 2024 1 2:08pm cough, congestion June 23, 2024 12:55pm [email or web address] July 01, 2024 9:05am Preop/Wellness August 25, 2024 10: 28am Reason for Visit Admit Date COPD exacerbation June 09, 2024 1 2:08pm Bronchitis June 23, 2024 12:55pm Family history of colon cancer August 10:28am Chief Complaint Admit Date Virtural: URI June 09, 2024 1 2:08pm cough, congestion June 23, 2024 12:55pm [email or web address] July 01, 2024 9:05am Preop/Wellness August 25, 2024 10: 28am Edema SOB August 25, 2024 3:1 0pm Chief Complaint Admit Date Virtural: URI June 09, 2024 1 2:08pm cough, congestion June 23, 2024 12:55pm [email or web address] July 01, 2024 9:05am Preop/Wellness August 25, 2024 10: 28am Edema SOB August 25, 2024 3:1 0pm ER F/U, legs swollen September 07, 2024 10:26 am Reason for Visit Admit Date COPD exacerbation June 09, 2024 1 2:08pm Bronchitis June 23, 2024 12:55pm Elevated PSA August 25, 2024 10: 28am Family history of colon cancer August 10:28am Medicare annual wellness visit, subseque nt August 25, 2024 10:28am Chief Complaint Admit Date Preop/Wellness August 25, 2024 10: 28am Edema SOB August 25, 2024 3:1 0pm ER F/U, legs swollen September 07, 2024 10:26 am family hx of colon cancer October 02, 2024 6:40am family hx of colon cancer October 02, 2024 8:41am Reason for Visit Admit Date Elevated PSA August 25, 2024 10: 28am Family history of colon cancer August 10:28am Medicare annual wellness visit, [facility] August 25, 2024 10:28am Edema September 07, 2024 10:26a m Rectal bleeding September 07, 2024 10:26a m Chief Complaint Admit Date Preop/Wellness August 25, 2024 10: 28am Edema SOB August 25, 2024 3:1 0pm ER F/U, legs swollen September 07, 2024 10:26 am family hx of colon cancer October 02, 2024 6:40am family hx of colon cancer October 02, 2024 8:41am C61 October 12, 2024 10:54 am Chief Complaint Admit Date Preop/Wellness August 25, 2024 10: 28am Edema SOB August 25, 2024 3:1 0pm ER F/U, legs swollen September 07, 2024 10:26 am family hx of colon cancer October 02, 2024 6:40am family hx of colon cancer October 02, 2024 8:41am C61 October 12, 2024 10:54 am New Patient, Prostate Cancer October 19, 2024 10:18am Prostate Cancer October 19, 2024 10:3 8am Rash on left leg October 22, 2024 10:1 5am Prostate Cancer October 27, 2024 2:42 pm Prostate Cancer November 03, 2024 6:52a m Reason for Visit Admit Date Elevated PSA August 25, 2024 10: 28am Family history of colon cancer August 10:28am Medicare annual wellness visit, [facility] August 25, 2024 10:28am Edema September 07, 2024 10:26a m Rectal bleeding September 07, 2024 10:26a m Prostate cancer October 19, 2024 10:1 8am Class 3 severe obesity with body mass index (BMI) of 40.0 to 44.9 in adult October 22, 2024 10:15am Dermatitis October 22, 2024 10:1 5am Morbid (severe) obesity due to excess ca lories October 22, 2024 10:15am Prostate cancer October 22, 2024 10:1 5am Chief Complaint Admit Date family hx of colon cancer October 02, 2024 6:40am family hx of colon cancer October 02, 2024 8:41am C61 October 12, 2024 10:54 am New Patient, Prostate Cancer October 19, 2024 10:18am Rash on left leg October 22, 2024 10:1 5am Prostate Cancer October 27, 2024 2:42 pm Prostate Cancer November 03, 2024 6:52a m Prostate Cancer November 05, 2024 2:30p m Prostate Cancer November 18, 2024 2:07 pm Prostate Cancer November 25, 2024 12:1 1pm Follow Up 1 Month, Prostate December 28, 2024 10:49am Prostate Cancer December 28, 2024 10 :50am Reason for Visit Admit Date Prostate cancer October 19, 2024 10:1 8am Class 3 severe obesity with body mass index (BMI) of 40.0 to 44.9 in adult October 22, 2024 10:15am Dermatitis October 22, 2024 10:1 5am Morbid (severe) obesity due to excess ca lories October 22, 2024 10:15am Prostate cancer October 22, 2024 10:1 5am Prostate cancer December 28, 2024 10 :49am Reason for Referral Reason Dr. Rufina Coulter - dark hard cerumen occlusion on R eardrum. Diagnosis 1 Right ear impacted c erumen (H61.21) Referral Organization [facility] C daniel Referring Provider First Name Luis Alberto Referring Provider Last Name Danilo Referring Provider Specialty [facility] Referred Organization [facility] Referred Address ,[place], [place],[address] Referred Provider Specialty Ear, Nose an d [...] Touchworks DATE CREATED AUTHOR AUTHOR'S ORGANIZ ATION 11/01/2022 [facility] DATE CREATED AUTHOR AUTHOR'S ORGANIZ ATION 01/20/2024 [facility] DATE CREATED AUTHOR AUTHOR'S ORGANIZ ATION 08/09/2024 [facility] DATE CREATED AUTHOR AUTHOR'S ORGANIZ ATION 08/15/2024 [facility] DATE CREATED AUTHOR AUTHOR'S ORGANIZ ATION 09/07/2024 [facility] DATE CREATED AUTHOR AUTHOR'S ORGANIZ ATION 09/09/2024 [facility] DATE CREATED AUTHOR AUTHOR'S ORGANIZ ATION 09/10/2024 [facility] DATE CREATED AUTHOR AUTHOR'S ORGANIZ ATION 09/16/2024 [facility] DATE CREATED AUTHOR AUTHOR'S ORGANIZ ATION 09/23/2024 [facility] DATE CREATED AUTHOR AUTHOR'S ORGANIZ ATION 10/08/2024 [facility] DATE CREATED AUTHOR AUTHOR'S ORGANIZ ATION 10/10/2024 [facility] DATE CREATED AUTHOR AUTHOR'S ORGANIZ ATION 11/04/2024 [facility] DATE CREATED AUTHOR AUTHOR'S ORGANIZ ATION [address] [facility] DATE CREATED AUTHOR AUTHOR'S ORGANIZ ATION [address] [facility] ysician Group Source Comments (unrecognize d section and content) In the event this informatio n is protected by the Federal Confidentiality of Alcohol and Drug Abuse Patient Records regulations: The Federal rules restrict any use of the information to criminally investigate or prosecute any alcohol or drug abuse patient.[facility] the event this information is protected by the Federal Confidentiality of Alcohol and Drug Abuse Patient Records regulations: The Federal rules restrict any use of the information to criminally investigate or prosecute any alcohol or drug abuse patient.[facility] the event this information is protected by the Federal Confidentiality of Alcohol and Drug Abuse Patient Records regulations: The Federal rules restrict any use of the information to criminally investigate or prosecute any alcohol or drug abuse patient.[facility] the event this information is protected by the Federal Confidentiality of Alcohol and Drug Abuse Patient Records regulations: The Federal rules restrict any use of the information to criminally investigate or prosecute any alcohol or drug abuse patient.[facility] the event this information is protected by the Federal Confidentiality of Alcohol and Drug Abuse Patient Records regulations: The Federal rules restrict any use of the information to criminally investigate or prosecute any alcohol or drug abuse patient.[facility] the event this information is protected by the Federal Confidentiality of Alcohol and Drug Abuse Patient Records regulations: The Federal rules restrict any use of the information to criminally investigate or prosecute any alcohol or drug abuse patient.[facility] the event this information is protected by the Federal Confidentiality of Alcohol and Drug Abuse Patient Records regulations: The Federal rules restrict any use of the information to criminally investigate or prosecute any alcohol or drug abuse patient.[facility] the event this information is protected by the Federal Confidentiality of Alcohol and Drug Abuse Patient Records regulations: The Federal rules restrict any use of the information to criminally investigate or prosecute any alcohol or drug abuse patient.[facility] Reason for Visit (unrecogniz ed section and content) Reason Comments Received Outside Medical Records [facility] Reason Comments Appointment Reason Comments [...] SOB Reason Onset Date Comments Surgery 05/12/2024 Reason Comments Follow-up 3 month Follow up fo r Coronary Artery Disease, Pre Operative Clearance Reason Comments Follow-up 2 week Follow up to discuss stress echo Results Reason Comments Follow-up 1 week for arteriosc lerotic cardiovascular disease Specialty Diagnoses / Procedures Referred By Lizy t Referred To Contact Cardiology Diagnoses Edema, unspecified type Procedures Follow Up In Cardiology Jairo Ch, CLOTH INSPECTOR-SALES APPLICATIONS ENGINEER [address] [facility] [address], [address] [address] Phone: tel: fax: Referral ID Status Reason Start Date Expiration Date V isits Requested Visits Authorized [id number] Authorized 08/25/2024 08/25/2025 1 1 Reason Comments Follow-up 6 months ASCVD (carol riosclerotic cardiovascular disease)r Specialty Diagnoses / Procedures Referred By Lizy t Referred To Contact Cardiology Diagnoses ASCVD (arteriosclerotic cardiovascular disease) Procedures Follow Up In Cardiology Joshua Dill DO [address] [facility] [address], [address] [address] Phone: tel: fax: Jairo Ch, CLOTH INSPECTOR-SALES APPLICATIONS ENGINEER [address] [facility] [address], [address] [address] Phone: tel: fax: Referral ID Status Reason Start Date Expiration Date V isits Requested Visits Authorized [id number] Authorized 05/05/2024 05/05/2025 1 1 Care Teams (unrecognized sec tion and content) [...] August 26, 2023 End: August 26, 2023 Lead Tinner Relationship Specialty Start Date End Date Camelia Adams Jr. PCP - General 07/18/06 Lam Pelaez, Referring Emergency Medicine 02/23/21 Team Status: Inactive Member Role Status Dates Luis Alberto Carrasco MD Primary Care Provider Active Papa Washburn DO Attending Provider Active Team Status: Inactive Member Role Status Dates Luis Alberto Carrasco MD Primary Care Provider, Attending Sahra hyatt Active Lead Tinner Relationship Specialty Start Date End Date Camelia Adams Jr. PCP - General 07/18/06 Lam Pelaez DO Referring Emergency Medicine 02/23/21 Lead Tinner Relationship Specialty Start Date End Date Camelia Adams Jr. PCP - General 07/18/06 Lam Pelaez DO Referring Emergency Medicine 02/23/21 Lead Tinner Relationship Specialty Start Date End Date Luis Alberto Carrasco MD [address] [place] [id number] PCP - General Family Medicine 09/18/22 Lead Tinner Relationship Specialty Start Date End Date Luis Alberto Carrasco MD [address] [place] [phone] PCP - General Family Medicine 09/18/22 Lead Tinner Relationship Specialty Start Date End Date Luis Alberto Carrasco MD [address] [place] [phone] PCP - General Family Medicine 09/18/22 Team Status: Inactive Member Role Status Dates Luis Alberto Carrasco MD Primary Care Provide r, Attending Provider Active Start: August 29, 2023 End: August 29, 2023 Lead Tinner Relationship Specialty Start Date End Date Luis Alberto Carrasco MD [address] [place] [address] PCP - General 11/20/18 Team Status: Active Member Role Status Dates Luis Alberto Carrasco MD Primary Care Provide r, Attending Provider Active Start: August 30, 2023 Team Status: Inactive Member Role Status Dates Luis Alberto Carrasco MD Primary Care Provider Active Start: October 01, 2023 End: October 01, 2023 Kelly Daniel APRN [facility] Attending Provider Active Start: October 01, 2023 [...] End: January 14, 2024 Justine Reed APRN [employer]ATING [employer]PHOL[employer]-C Attending Provider Active Start: January End: January 14, 2024 Lead Tinner Relationship Specialty Start Date End Date Luis Alberto Carrasco MD [address] [place] [address] PCP - General Family Medicine 09/18/22 Lead Tinner Relationship Specialty Start Date End Date Luis Alberto Carrasco MD [address] [place] [address] PCP - General Family Medicine 09/18/22 Lead Tinner Relationship Specialty Start Date End Date Luis Alberto Carrasco MD [address] [place] [address] PCP - General 11/20/18 Team Status: Inactive Member Role Status Dates Luis Alberto Carrasco MD Primary Care Provider Active Start: March 30, 2024 End: March 30, 2024 Kelly Daniel APRN ACNP- Attending Provider Active Start: March 30, 2024 End: March 30, 2024 Team Status: Inactive Member Role Status Dates Luis Alberto Carrasco MD Primary Care Provide r, Attending Provider Active Start: April 10, 2024 End: April 10, 2024 Team Status: Active Member Role Status Dates Luis Alberto Carrasco MD Primary Care Provider Active Start: May 19, 2024 Kit Dill DO Attending Provider Active S tart: May 19, 2024 Team Status: Active Member Role Status Dates Luis Alberto Carrasco MD Primary Care Provider Active Start: May 20, 2024 Anahy Bhatia CMA Attending Provider Active Start: May 20, 2024 Team Status: Inactive Member Role Status Dates Luis Alberto Crarasco MD Primary Care Provide r, Attending Provider Active Start: June 09, 2024 End: June 09, 2024 Team Status: Inactive Member Role Status Dates Justine Reed APRN [employer]ATING UPHOLSTER[employer]-C Attending Provider Active Start: June End: June 23, 2024 Luis Alberto Carrasco MD Primary Care Provider Active Start: June 23, 2024 End: June 23, 2024 Team Status: Inactive Member Role Status Dates Luis Alberto Carrasco MD Primary Care Provider Active Start: July 01, 2024 End: July 01, 2024 Justine Piedra PA-C Attending Provider Active Start: July 01, 2024 End: July 01, 2024 Lead Tinner Relationship Specialty Start Date End Date Luis Alberto Carrasco MD [address] [place] [address] [place] [address] [place] [address] PCP - General 11/20/18 Lead Tinner Relationship Specialty Start [place] [address] [place] [address] [place] [address] PCP - General 11/20/18 Lead Tinner Relationship Specialty Start Date End Date Luis Alberto Carrasco MD [address] [facility] [place] [address] PCP - General 11/20/18 Lead Tinner Relationship Specialty Start Date End Date Luis Alberto Carrasco MD [address] [facility] [place] [address] PCP - General 11/20/18 Lead Tinner Relationship Specialty Start Date End Date Luis Alberto Carrasco MD [address] [facility] [place], [place] [id number] PCP - General 11/20/18 Lead Tinner Relationship Specialty Start Date End Date Luis Alberto Carrasco MD [address] [facility] [place] [address] PCP - General 11/20/18 Team Status: Inactive Member Role Status Dates Luis Alberto Carrasco MD Primary Care Provide r, Attending Provider Active Start: August 25, 2024 End: August 25, 2024 Team Status: Inactive Member Role Status Dates Luis Alberto Carrasco MD Primary Care Provider Active Start: August 25, 2024 End: August 25, 2024 Jairo Ch APRN Attending Provider Active S tart: August 25, 2024 End: August 25, 2024 Lead Tinner Relationship Specialty Start Date End Date Luis Alberto Carrasco MD [address] [facility] [place], [place] [id number] PCP General 11/20/18 Team Status: Inactive Member Role Status Dates Luis Alberto Carrasco MD Primary Care Provide r, Attending Provider Active Start: September 07, 2024 End: September 07, 2024 Team Status: Active Member Role Status Dates Luis Alberto Carrasco MD Primary Care Provider Active Start: September 11, 2024 Outside Provider Attending Provider Active Start : September 11, 2024 Team Status: Inactive Member Role Status Dates Luis Alberto Carrasco MD Primary Care Provider Active Start: October 02, 2024 End: October 02, 2024 Jaime Sharif MD Attending Provider Active S tart: October 02, 2024 End: October 02, 2024 Team Status: Active Member Role Status Dates Luis Alberto Carrasco MD Primary Care Provider Active Start: October 02, 2024 Jaime Sharif MD Attending Provider, Other Provide r Active Start: October 02, 2024 Lead Tinner Relationship Specialty Start Date End Date AdamsCamelia Jr. PCP - General 07/18/06 Lam Pelaez DO Referring Emergency Medicine 02/23/21 Lead Tinner Relationship Specialty Start Date End Date AdamsCamelia Jr. PCP - General 07/18/06 Lam Pelaez DO Referring Emergency Medicine 02/23/21 Lead Tinner Relationship Specialty Start Date End Date Adams Camelia Uriah Rocha. PCP - General 07/18/06 Lam Pelaez DO Referring Emergency Medicine 02/23/21 Team Status: Inactive Member Role Status Dates Luis Alberto Carrasco MD Primary Care Provider Active Start: October 12, 2024 End: October 12, 2024 Rudi Pinon MD Attending Provider Active Start: October 12, 2024 End: October 12, 2024 Team Status: Inactive Member Role Status Dates Luis Alberto Carrasco MD Primary Care Provider Active Start: August 25, 2024 End: August 25, 2024 Luis Alberto Carrasco MD Attending Provider Active St art: August 25, 2024 End: August 25, 2024 Team Status: Inactive Member Role Status Dates Luis Alberto Carrasco MD Primary Care Provider Active Start: September 07, 2024 End: September 07, 2024 Luis Alberto Carrasco MD Attending Provider Active St art: September 07, 2024 End: September 07, 2024 Team Status: Active Member Role Status Dates Luis Alberto Carrasco MD Primary Care Provider Active Start: October 02, 2024 Jaime Sharif MD Attending Provider Active S tart: October 02, 2024 Jaime Sharif MD Other Provider Active Start : October 02, 2024 Team Status: Inactive Member Role Status Dates Luis Alberto Carrasco MD Primary Care Provider Active Start: October 19, 2024 End: October 19, 2024 Ken Rios MD Attending Provider Active Start: October 19, 2024 End: October 19, 2024 Rudi Pinon MD Referring Provider Active Start: October 19, 2024 End: October 19, 2024 Team Status: Active Member Role Status Dates Luis Alberto Carrasco MD Primary Care Provider Active Start: October 19, 2024 Ken Rios MD Attending Provider Active Start: October 19, 2024 Rudi Pinon MD Referring Provider Active Start: October 19, 2024 Team Status: Inactive Member Role Status Dates Luis Alberto Carrasco MD Primary Care Provider Active Start: October 22, 2024 End: October 22, 2024 Luis Alberto Carrasco MD Attending Provider Active St art: October 22, 2024 End: October 22, 2024 Team Status: Inactive Member Role Status Dates Luis Alberto Carrasco MD Primary Care Provider Active Start: October 27, 2024 End: October 27, 2024 Ken Rios MD Attending Provider Active Start: October 27, 2024 End: October 27, 2024 Team Status: Active Member Role Status Dates Luis Alberto Carrasco MD Primary Care Provider Active Start: November 03, 2024 Ken Rios MD Attending Provider Active Start: November 03, 2024 Ken Rios MD Other Provider Active St art: November 03, 2024 Lead Tinner Relationship Specialty Start Date End Date Luis Alberto Carrasco MD PCP - General Family Medicine 09/18/22 Lead Tinner Relationship Specialty Start Date End Date Luis Alberto Carrasco MD [address] [place] [address], [place] [id number] PCP - General 11/20/18 Team Status: Active Member Role Status Dates Luis Alberto Carrasco MD Primary Care Provider Active Start: November 05, 2024 Ken Rios MD Attending Provider Active Start: November 05, 2024 Ken Rios MD Other Provider Active St art: November 05, 2024 Rudi Pinon MD Referring Provider Active Start: November 05, 2024 Team Status: Active Member Role Status Dates Luis Alberto Carrasco MD Primary Care Provider Active Start: November 18, 2024 Ken Rios MD Attending Provider Active Start: November 18, 2024 Ken Rios MD Other Provider Active St art: November 18, 2024 Rudi Pinon MD Referring Provider Active Start: November 18, 2024 Team Status: Active Member Role Status Dates Luis Alberto Carrasco MD Primary Care Provider Active Start: November 25, 2024 Ken Rios MD Other Provider Active St art: November 25, 2024 Rudi Pinon MD Referring Provider Active Start: November 25, 2024 Shannon Cuenca MD Attending Provider Active Start: November 25, 2024 Team Status: Inactive Member Role Status Dates Luis Alberto Carrasco MD Primary Care Provider Active Start: December 28, 2024 End: December 28, 2024 Franca Henning APRN Attending Provider Acti ve Start: December 28, 2024 End: December 28, 2024 Team Status: Active Member Role Status Dates Luis Alberto Carrasco MD Primary Care Provider Active Start: December 28, 2024 Rudi Pinon MD Referring Provider Active Start: December 28, 2024 Franca Henning APRN Attending Provider Acti ve Start: December 28, 2024 Goals (unrecognized section and content) Goals may [...] may be documented in an alternate section No data available for this sectionGoals may be documented in an alternate sectionGoals may be documented in an alternate sectionGoals may be documented in an alternate section No data available for this sectionGoals may be documented in an alternate sectionGoals may be documented in an alternate section No data available for this section No data available for this sectionGoals may be documented in an alternate [...] BE BASED ON THE PRIMARY CLINICAL RECORDS. [facility]. provides no warranty or guarantee of the accuracy or completeness of information in this document.
== END 2025-02-10 11:51 | disposition home or self-care (01) ==
LOC: LAB 11:51
PROVIDERS: PCP Family Medicine; Visit Provider Family Medicine
DX: E11.65 Type 2 diabetes mellitus with hyperglycemia (principal)
CPT/HCPCS: 36415; 83036